=== PATIENT | female | born 1995 | race Caucasian/White ===

== ENCOUNTER 2020-03-08 18:38 | Emergency (ER) | payer OTHER, SELFPAY ==
--- NOTE | ~2020-03-08 | CT_ITS ---
EXAMINATION: CT abdomen pelvis w con DATE: 03/08/2020 22:04 INDICATION: Abdominal pain TECHNIQUE: Computed tomography (CT) of the abdomen and pelvis was performed with 100 cc Omnipaque 350 intravenous contrast. Automated exposure control and iterative reconstruction technique were employe d. Exam dose: 227.66 mGy-cm total exam DLP. COMPARISON: 04/15/2016 CT abdomen pelvis FINDINGS: The lung bases are clear of infiltrate or consolidation. Normal heart size. No pericardial or pleural effusion. Status post cholecystectomy. No bile duct dilatation. No hepatic space-occupying mass lesion is detec cedric. Splenic size is within normal range. No pancreatic mass lesion or calcification or ductal dilata tion. Normal morphology of the adrenal glands. There is a pinpoint nonobstructing lower pole left renal calculus. No other urinary tract calculus or hydroureteronephrosis. The urinary bladder is unremarkable. There is an IUD within the uterus. There is an involuting peripherally enhancing 1.8 cm right ovarian cyst. The urinary bladder is unrem arkable. Normal appendix. No bowel obstruction, bowel wall thickening, pneumatosis or intraperitoneal free air . Small fat-containing umbilical hernia. Normal caliber of the abdominal aorta. No intraperitoneal or retroperitoneal or pelvic mass lesion or adenopathy or ascites. Included skeletal structures are unremarkable. IMPRESSION: Involuting 1.8 cm right ovarian cyst IUD within uterus Normal appendix Status post cholecystectomy Pinpoint nonobstructing lower pole left renal calculus Reviewed, dictated and finalized at [facility]. Reviewed, dictated and finalized at [facility]. [employer]PRES[employer]IVE
[2020-03-08 19:01] VITALS: BP 118/73; PULSE 94; RESP 18; TEMP 37.1; O2SAT 100
[2020-03-08 19:22] LABS: Basophils Percent Auto 0.3 % (0.2-1.2); Eosinophils Absolute Auto 0.3 K/mm3 (0-0.3); Eosinophils Percent Auto 2.4 % (0-4.4); Hematocrit 41.2 % (37.0-47.0); Hemoglobin 13.8 g/dL (12.0-15.0); Immature Granulocyte Absolute 0.06 K/mm3 (0.00-0.031); Immature Granulocyte Percent A 0.5 % (0-0.5); Lymphocytes Absolute Auto 2.98 K/mm3 (0.9-3.2); Lymphocytes Percent Auto 25.6 % (18.3-44.2); Mean Corpuscular HGB Conc 33.5 g/dl (32-36); Mean Corpuscular Hemoglobin 30.1 pg (26-34); Mean Corpuscular Volume 89.8 fl (80-100); Mean Platelet Volume 10.9 fl (7.4-10.4); Monocytes Absolute Auto 0.7 K/mm3 (0.1-0.6); Monocytes Percent Auto 6.2 % (2.6-8.5); Neutrophils Absolute Auto 7.6 K/mm3 (1.3-6.7); Platelet Count Result 306 k/mm3 (150-375); Red Blood Count 4.59 M/mm3 (4.2-5.4); Red Cell Distribution Width 12.4 % (11.5-14.5); White Blood Count 11.6 K/mm3 (4.5-10.0)
[2020-03-08 19:39] LABS: Anion Gap 10 mmol/L (8-16); Blood Urea Nitrogen 15 mg/dL (7-17); Calcium 9.7 mg/dL (8.4-10.2); Carbon Dioxide 26 mmol/L (22-30); Chloride 103 mmol/L (98-107); Estimated CRCL calculation 89 ml/min; Estimated Glomerular Filt Rate > 60; Glucose 92 mg/dL (65-105); Potassium 4.1 mmol/L (3.4-5.0); Sodium 139 mmol/L (137-145)
[2020-03-08 20:11] LABS: Add Urine Microscopic? YES; Appearance Urine Clear (Clear); Bilirubin Urine Negative (Negative); Blood Urine 1+ (Negative); Color Urine Straw (Yellow); Glucose Urine UA Negative (Negative); Ketones Urine Negative (Negative); Leukocyte Esterase Ur Negative LEU/UL (Negative); Nitrate Urine Negative (Negative); Protein Urine Negative (Negative); Specific Grav Ur 1.014 (1.001-1.035); Squamous Epithelial Cell Urine Moderate /hpf (Few); Urobilinogen Urine Negative mg/dL (<2.0); WBC Urine 0-3 /hpf
--- NOTE | 2020-03-08 20:52 | ED.GENADULT ---
HPI - General Adult General Chief complaint: Urogenital-Female Stated complaint: back pain Time Seen by Provider: 03/08/20 20:45 Source: RN notes reviewed History of Present Illness HPI narrative: Patient presents to emergency department from home for dysuria. Patient states that for the past 1 week she has had dysuria and urinary frequency she was seen at [facility] 1 week ago and started on Bactrim which she states she had side effects from and today had Macrobid called in. She states that she has been having nausea vomiting for the past 1 week and today developed bilateral lower back pain as well as abdominal pain she denies any fevers or chills chest pain shortness of breath or any other symptoms Related Data Allergies Allergy/AdvReac Type Severity Reaction Status Date / Time gluten Allergy Intermediate Other Verified 03/08/20 20:51 chlorpheniramine Allergy Unknown Unknown Verified 03/08/20 20:51 dextromethorphan Allergy Unknown Hives Verified 03/08/20 20:51 phenylephrine Allergy Unknown Hives Verified 03/08/20 20:51 sulfamethoxazole AdvReac Vomiting Verified 03/08/20 20:51 [From Sulfamethoxazole-Trimethoprim] trimethoprim AdvReac Vomiting Verified 03/08/20 20:51 [From Sulfamethoxazole-Trimethoprim] Review of Systems Review of Systems: Narrative: Gen.: Denies fevers or chills ENT: Denies congestion Respiratory: Denies shortness of breath or cough CV: Denies chest pain or palpitations GI: See HPI see HPI Musculoskeletal: Denies back pain or muscle pain Neuro: Denies numbness, tingling, weakness or focal weakness Skin: Denies rash Except as documented, all other systems reviewed and negative [facility] Past Medical History Medical History (Updated 03/08/20 @ 22:39 by Nik Ames DO) Celiac disease Social History Social History (Updated 03/08/20 @ 20:54 by Nik Ames DO) Smoking status: Never smoker Gender identity (if verbalized by the patient): Female Exam Narrative: Exam Narrative: APPEARANCE: No acute distress, nontoxic, resting in bed HEENT: Normocephalic, atraumatic, OMM RESPIRATORY: No respiratory distress, clear to auscultation bilaterally with no rhonchi wheezing or rales CARDIOVASCULAR: RRR s murmur ABDOMINAL: Soft, nondistended, diffusely tender palpation no rebound or guarding, bilateral flank tenderness MUSCULOSKELETAl: Moves all extremities. No clubbing, cyanosis or edema. NEURO: Awake and alert. Following commands, speech normal, no focal deficits SKIN:: Warm, dry. Normal Color PSYCHIATRIC: Normal affect/mood Course Course Emergency Course: Patient states that they are feeling much better at this time. States abdominal pain has resolved. Repeat abdominal exam shows the patient's abdomen to be soft and nontender. Discussed with patient results of workup and diagnosis. Discussed need for follow-up with primary care physician, reasons to return to the emergency department in proper use of medication. Patient understands and agrees to current treatment plan Vital Signs Vital signs: Vital Signs Temperature 98.8 F 03/08/20 19:01 Pulse Rate 94 03/08/20 19:01 Respiratory Rate 18 03/08/20 19:01 Blood Pressure 118/73 03/08/20 19:01 Pulse Oximetry 100 03/08/20 19:01 Temperature 98.8 F 03/08/20 19:01 Pulse Rate 94 03/08/20 19:01 Respiratory Rate 18 03/08/20 19:01 Blood Pressure 118/73 03/08/20 19:01 Pulse Oximetry 100 03/08/20 19:01 Medical Decision Making MDM Narrative Medical decision making narrative: Patient's abdomen is soft without significant pain or signs of surgical abdomen on serial exams. Lab and x-ray evaluations are reviewed and patient is felt to be a reasonable candidate for outpatient management. Patient was instructed as to limitations of x-ray and laboratory evaluation and encouraged to return to ED or primary physician for repeat exam in 12 hours if continued or worsening pain Vital Signs Vital Signs: Vital Si
[2020-03-08] MEDS: ONDANSETRON INJ 4 MG/2 ML VIAL IV PUSH (21:00)
[2020-03-08] MEDS: SODIUM CHLORIDE 0.9% IV 1,000 ML 999 ML IV CONT (21:01)
--- NOTE | 2020-03-08 21:06 | PC.NURSE ---
called chem, added on Hepatic lip 2105
[2020-03-08 21:43] LABS: Alanine Aminotransferase 23 U/L (4-35); Albumin Level 4.7 g/dL (3.5-5.1); Alkaline Phosphatase 55 U/L (38-126); Aspartate Amino Transferase 32 U/L (14-36); Bilirubin,Total 0.4 mg/dL (0.2-1.3); Lipase 97 U/L (23-300)
[2020-03-08 23:06] VITALS: BP 101/63; PULSE 78; RESP 15; O2SAT 100
== END 2020-03-08 23:07 | disposition home or self-care (01) ==
PROVIDERS: Emergency Medicine; Emergency Provider Emergency Medicine
DX: R30.0 Dysuria (principal); R10.9 Unspecified abdominal pain; Z97.5 Presence of (intrauterine) contraceptive device
CPT/HCPCS: 36415; 74177; 80048; 80076; 81001; 81025; 83690; 85025; 96361; 96365; 96375; 99284; J0131; J2405; J7030; Q9967

== ENCOUNTER 2020-10-20 17:52 | Emergency (ER) | payer BC, OTHER, SELFPAY ==
[2020-10-20 17:54] VITALS: BP 121/68; PULSE 136; RESP 20; TEMP 37.5; O2SAT 100
--- NOTE | 2020-10-20 18:10 | ED.GENADULT ---
HPI - General Adult General Chief complaint: Abdominal Pain Stated complaint: right side pain/fever Time Seen by Provider: 10/20/20 17:59 Source: patient, family and RN notes reviewed Mode of arrival: ambulatory Limitations: no limitations History of Present Illness HPI narrative: Patient is a 24-year-old female who presents to emergency department for evaluation of vomiting diarrhea that began at 4 AM and has persisted throughout the day patient notes chills fever multiple episodes of vomiting and diarrhea. Patient attempted Imodium with no improvement. Patient denies similar occurrence in the past or sick contacts. Patient on arrival appears uncomfortable and notes cramping throughout the abdomen. Related Data Allergies Allergy/AdvReac Type Severity Reaction Status Date / Time gluten Allergy Intermediate Other Verified 03/08/20 20:51 chlorpheniramine Allergy Unknown Unknown Verified 03/08/20 20:51 dextromethorphan Allergy Unknown Hives Verified 03/08/20 20:51 phenylephrine Allergy Unknown Hives Verified 03/08/20 20:51 sulfamethoxazole AdvReac Vomiting Verified 03/08/20 20:51 [From Sulfamethoxazole-Trimethoprim] trimethoprim AdvReac Vomiting Verified 03/08/20 20:51 [From Sulfamethoxazole-Trimethoprim] Review of Systems Review of Systems: All systems reviewed & are unremarkable except as noted in HPI and below PMFSH Past Medical History Medical History Celiac disease Surgical History Surgical History Hx of cholecystectomy Social History Social History Smoking status: Never smoker Gender identity (if verbalized by the patient): Female Exam Narrative: Exam Narrative: GENERAL: Ill-appearing, well-nourished, uncomfortable and in no acute distress. HEAD: Normocephalic, atraumatic. EYES: PERRLA and EOMI. ENT: Nares clear, no rhinorrhea or epistaxis. Mucous membranes moist. CHEST: Clear to auscultation. No respiratory distress. No wheezes rales or rhonchi HEART: Regular rate and rhythm. No murmur heard. Normal peripheral pulses. ABDOMEN: Soft, generalized abdominal tenderness, nondistended EXTREMITIES: Normal range of motion. No edema. SKIN: Warm, dry, no rash. NEURO: No focal deficits. Alert and oriented x3. PSYCH: Normal mood and affect. Course Course Emergency Course: Patient hydrated given medications with improvement will be discharged home with outpatient follow-up Vital Signs Vital signs: Vital Signs Temperature 99.5 F 10/20/20 17:54 Pulse Rate 136 H 10/20/20 17:54 Respiratory Rate 20 10/20/20 17:54 Blood Pressure 121/68 10/20/20 17:54 Pulse Oximetry 100 10/20/20 17:54 Temperature 99.5 F 10/20/20 17:54 Pulse Rate 136 H 10/20/20 17:54 Respiratory Rate 20 10/20/20 17:54 Blood Pressure 100/58 L 10/20/20 18:21 Pulse Oximetry 100 10/20/20 17:54 Medical Decision Making MDM Narrative Medical decision making narrative: Patient presented with vomiting and diarrhea had marked improvement with medications resting comfortably in the room with normal vital signs on the surveillance monitor afebrile nontoxic-appearing tolerating p.o. intake felt appropriate for outpatient reevaluation Vital Signs Vital Signs: Vital Signs Temperature 99.5 F 10/20/20 17:54 Pulse Rate 136 H 10/20/20 17:54 Respiratory Rate 10/20/20 17:54 Blood Pressure 121/68 10/20/20 17:54 Pulse Oximetry 100 10/20/20 17:54 Temperature 99.5 F 10/20/20 17:54 Pulse Rate 136 H 10/20/20 17:54 Respiratory Rate 10/20/20 17:54 Blood Pressure 100/58 L 10/20/20 18:21 Pulse Oximetry 100 10/20/20 17:54 Lab Data Result diagrams: 10/20/20 18:10 10/20/20 18:10 Labs: Lab Results 10/20/20 10/20/20 10/20/20 Range/Units 18:10 18:10 18:20 WBC 7.3 (4.5-10.0)
[2020-10-20 18:15] LABS: Basophils Percent Auto 0.1 % (0.2-1.2); Eosinophils Absolute Auto 0.1 K/mm3 (0-0.3); Eosinophils Percent Auto 1.5 % (0-4.4); Hemoglobin 14.7 g/dL (12.0-15.0); Immature Granulocyte Absolute 0.03 K/mm3 (0.00-0.031); Immature Granulocyte Percent A 0.4 % (0-0.5); Lymphocytes Absolute Auto 1.08 K/mm3 (0.9-3.2); Lymphocytes Percent Auto 14.8 % (18.3-44.2); Mean Corpuscular HGB Conc 32.7 g/dl (32-36); Mean Corpuscular Hemoglobin 29.6 pg (26-34); Mean Corpuscular Volume 90.7 fl (80-100); Monocytes Absolute Auto 0.5 K/mm3 (0.1-0.6); Monocytes Percent Auto 6.6 % (2.6-8.5); Neutrophils Absolute Auto 5.6 K/mm3 (1.3-6.7); Neutrophils Percent Auto 76.6 % (45.5-73.1); Platelet Count Result 258 k/mm3 (150-375); Red Blood Count 4.96 M/mm3 (4.2-5.4); Red Cell Distribution Width 12.4 % (11.5-14.5); White Blood Count 7.3 K/mm3 (4.5-10.0)
[2020-10-20 18:21] VITALS: BP 100/58
[2020-10-20 18:27] LABS: Alanine Aminotransferase 14 U/L (4-35); Albumin Level 4.7 g/dL (3.5-5.1); Alkaline Phosphatase 58 U/L (38-126); Anion Gap 10 mmol/L (8-16); Aspartate Amino Transferase 27 U/L (14-36); Blood Urea Nitrogen 10 mg/dL (7-17); Carbon Dioxide 23 mmol/L (22-30); Chloride 106 mmol/L (98-107); Estimated CRCL calculation 77 ml/min; Estimated Glomerular Filt Rate > 60; Glucose 93 mg/dL (65-105); Lipase 52 U/L (23-300); Potassium 3.7 mmol/L (3.4-5.0); Sodium 139 mmol/L (137-145)
[2020-10-20 18:35] LABS: Add Urine Microscopic? YES; Appearance Urine Cloudy (Clear); Bacteria Urine Trace /hpf; Bilirubin Urine Negative (Negative); Blood Urine 2+ (Negative); Color Urine Yellow (Yellow); Glucose Urine UA Negative (Negative); Ketones Urine Negative (Negative); Leukocyte Esterase Ur 1+ LEU/UL (Negative); Mucus Urine Heavy /lpf; Nitrate Urine Negative (Negative); Protein Urine 1+ mg/dL (Negative); Specific Grav Ur 1.027 (1.001-1.035); Squamous Epithelial Cell Urine Many /hpf (Few)
[2020-10-20] MEDS: ONDANSETRON INJ 4 MG/2 ML VIAL IV PUSH (18:35)
[2020-10-20] MEDS: FAMOTIDINE 20 MG/2 ML VIAL IV PUSH (18:36)
[2020-10-20] MEDS: LACTATED RINGERS 1,000 ML 999 ML IV CONT ×2 (18:36→19:35)
[2020-10-20] MEDS: HYOSCYAMINE SULFATE 0.125 MG TABLET PO (18:48)
[2020-10-20 20:38] VITALS: BP 102/73; PULSE 78; RESP 18; O2SAT 99
== END 2020-10-20 20:40 | disposition home or self-care (01) ==
PROVIDERS: Emergency Medicine Emergency Medical Services; Emergency Provider Emergency Medicine
DX: R10.9 Unspecified abdominal pain (principal); K90.0 Celiac disease
CPT/HCPCS: 36415; 80053; 81001; 81025; 83690; 85025; 87086; 87088; 96361; 96374; 96375; 99284; A9270; J0131; J2405; J7120

== ENCOUNTER 2020-10-21 03:10 | Emergency (ER) | payer BC, OTHER, SELFPAY ==
[2020-10-21 03:24] VITALS: BP 109/76; PULSE 98; RESP 18; TEMP 36.8; O2SAT 98
--- NOTE | 2020-10-21 03:34 | ED.NAVMDI ---
HPI - Nausea/Vomiting/Diarrhea General Chief complaint: Nausea/Vomiting/Diarrhea Stated complaint: Nausea, vomiting, GARCIA Time Seen by Provider: 10/21/20 03:23 History of Present Illness HPI Narrative: Nausea vomiting and diarrhea x2 days. Associated with diffuse abdominal cramping. Seen here yesterday and an essentially negative work-up. She was feeling better after symptomatic treatment, but after returning home her symptoms came back. In additiona she also has a severe headache consistent with her usual migraine. Related Data Allergies Allergy/AdvReac Type Severity Reaction Status Date / Time gluten Allergy Intermediate Other Verified 03/08/20 20:51 chlorpheniramine Allergy Unknown Unknown Verified 03/08/20 20:51 dextromethorphan Allergy Unknown Hives Verified 03/08/20 20:51 phenylephrine Allergy Unknown Hives Verified 03/08/20 20:51 sulfamethoxazole AdvReac Vomiting Verified 03/08/20 20:51 [From Sulfamethoxazole-Trimethoprim] trimethoprim AdvReac Vomiting Verified 03/08/20 20:51 [From Sulfamethoxazole-Trimethoprim] Review of Systems Review of Systems: All systems reviewed & are unremarkable except as noted in HPI and below Constitutional: Constitutional: Denies fever(s) ENT: Reports dizziness Cardiovascular: Cardiovascular: Denies chest pain Respiratory: Respiratory: Denies dyspnea Genitourinary: Genitourinary: Denies hematuria and Denies dysuria PMFSH Past Medical History Medical History Celiac disease Surgical History Surgical History Hx of cholecystectomy Social History Social History Smoking status: Never smoker Gender identity (if verbalized by the patient): Female Exam Const: General: healthy appearing, no acute distress and alert Orientation/consciousness: patient oriented x3 HENMT: Head: normal to inspection Face and sinus: normal facial exam Neck: Neck: normal visual inspection Resp: Effort & Inspection: normal respiratory effort Auscultation: clear to auscultation bilaterally, no rales, no rhonchi and no wheezes Cardio: Jugular venous distension: no JVD Rate: regular rate Rhythm: regular rhythm Heart sounds: no murmurs GI: Inspection: non-distended GI Palp: Yes Soft to palpation, Yes Tenderness to palpation present (GI), No Guarding due to palpation present (GI) and No Rebound tenderness present Auscultation: Hyperactive bowel sounds present Skin: General skin exam: normal color Neuro: General: patient oriented x3 and moves all extremities Speech: normal speech Extrem: General: no edema Psych: Appearance: well kempt Affect: normal affect Course Vital Signs Vital signs: Vital Signs Temperature 36.8 C 10/21/20 03:24 Pulse Rate 98 10/21/20 03:24 Respiratory Rate 18 10/21/20 03:24 Blood Pressure 109/76 10/21/20 03:24 Pulse Oximetry 98 10/21/20 03:24 Temperature 36.8 C 10/21/20 03:24 Pulse Rate 71 10/21/20 05:15 Respiratory Rate 18 10/21/20 05:15 Blood Pressure 96/58 L 10/21/20 05:15 Pulse Oximetry 98 10/21/20 05:15 MDM - Nausea/Vomiting/Diarrhea MDM Narrative Medical decision making narrative: Symptoms consistent with gastroenteritis. Once again feeling better after treatment. Differential Diagnosis Differential diagnosis: Likely gastroenteritis and dehydration Medical Records Attestation: I reviewed the patient's medical records. Lab Data Result diagrams: 10/21/20 03:44 10/21/20 03:44 Labs: Lab Results 10/21/20 10/21/20 Range/Units 03:44 03:44 WBC 5.8 (4.5-10.0) K/mm3 RBC 4.09 L (4.2-5.4) M/mm3 Hgb 12.4 (12.0-15.0) g/dL Hct 36.8 L (37.0-47.0) % MCV 90.0 (80-100) fl MCH 30.3 (26-34) pg MCHC 33.7 (32-36) g/dl RDW 12.3 (11.5-14.5) % Plt Count 204 (150-375) k/mm3 MP
[2020-10-21] MEDS: METOCLOPRAMIDE HCL INJ 10 MG/2 ML VIAL IV PUSH (03:46)
[2020-10-21] MEDS: SODIUM CHLORIDE 0.9% IV 1,000 ML 999 ML IV CONT (03:46)
[2020-10-21] MEDS: DICYCLOMINE HCL INJ 20 MG/2 ML VIAL IM (03:47)
[2020-10-21 03:49] VITALS: BP 98/69; PULSE 78; RESP 18; O2SAT 98
[2020-10-21 03:57] LABS: Basophils Percent Auto 0.3 % (0.2-1.2); Eosinophils Absolute Auto 0.1 K/mm3 (0-0.3); Eosinophils Percent Auto 1.7 % (0-4.4); Hematocrit 36.8 % (37.0-47.0); Hemoglobin 12.4 g/dL (12.0-15.0); Immature Granulocyte Absolute 0.02 K/mm3 (0.00-0.031); Immature Granulocyte Percent A 0.3 % (0-0.5); Lymphocytes Absolute Auto 1.29 K/mm3 (0.9-3.2); Lymphocytes Percent Auto 22.2 % (18.3-44.2); Mean Corpuscular HGB Conc 33.7 g/dl (32-36); Mean Corpuscular Hemoglobin 30.3 pg (26-34); Mean Platelet Volume 11.7 fl (7.4-10.4); Monocytes Absolute Auto 0.6 K/mm3 (0.1-0.6); Monocytes Percent Auto 10.5 % (2.6-8.5); Neutrophils Absolute Auto 3.8 K/mm3 (1.3-6.7); Platelet Count Result 204 k/mm3 (150-375); Red Blood Count 4.09 M/mm3 (4.2-5.4); Red Cell Distribution Width 12.3 % (11.5-14.5); White Blood Count 5.8 K/mm3 (4.5-10.0)
[2020-10-21 04:07] LABS: Alanine Aminotransferase 12 U/L (4-35); Albumin Level 4.1 g/dL (3.5-5.1); Alkaline Phosphatase 43 U/L (38-126); Anion Gap 9 mmol/L (8-16); Aspartate Amino Transferase 23 U/L (14-36); Bilirubin,Total 0.8 mg/dL (0.2-1.3); Blood Urea Nitrogen 7 mg/dL (7-17); Calcium 8.7 mg/dL (8.4-10.2); Carbon Dioxide 23 mmol/L (22-30); Chloride 110 mmol/L (98-107); Estimated CRCL calculation 88 ml/min; Estimated Glomerular Filt Rate > 60; Glucose 89 mg/dL (65-105); Lipase 58 U/L (23-300); Potassium 3.6 mmol/L (3.4-5.0); Sodium 142 mmol/L (137-145)
[2020-10-21 05:15] VITALS: BP 96/58; PULSE 71; RESP 18; O2SAT 98
== END 2020-10-21 05:38 | disposition home or self-care (01) ==
PROVIDERS: Emergency Provider Emergency Medicine
DX: K52.9 Noninfective gastroenteritis and colitis, unspecified (principal); K90.0 Celiac disease; Z90.49 Acquired absence of other specified parts of digestive tract
CPT/HCPCS: 36415; 80053; 83690; 85025; 96365; 96372; 96375; 99284; J0131; J0500; J2765; J7030

== ENCOUNTER 2020-11-18 14:19 | Emergency (ER) | payer BC, SELFPAY ==
--- NOTE | ~2020-11-18 | CT_ITS ---
EXAMINATION: CT abdomen pelvis w con EXAM DATE: 11/18/2020 20:29 INDICATION: Generalized abdominal pain . Urinary tract infection. Fever. TECHNIQUE: Spiral CT of the abdomen and pelvis was performed following intravenous injection of 100 m L Omnipaque 350. Axial, coronal and sagittal images of the abdomen and pelvis were reviewed. The do se-length product (DLP) for this examination was 226.43 mGy-cm. The exposure was tailored according to patient size (auto mA exposure control), and iterative reconstruction (ASIR) was used as additiona l dose reduction technique. There is no prior study for comparison. FINDINGS: The liver, spleen, adrenal glands and pancreas are unremarkable. There are cholecystectomy clips. Portal and splenic veins are patent. Kidneys enhance symmetrically. There is no hydronephr osis. There is IUD which appears to be centrally located within the endometrium, expected position. The bladder is unremarkable. There is no retroperitoneal or pelvic lymphadenopathy. Appendix appearance is unchanged compared to prior study, no suspicion of acute appendicitis. The st omach and small bowel are unremarkable. There is expected amount of colonic stool. No free intrape ritoneal gas. The heart is normal in size. There are no pericardial or pleural effusions. The nicolle g bases are unremarkable. The bones are unremarkable. IMPRESSION: 1. No acute intra-abdominal findings. Reviewed, dictated and finalized at [facility].
[2020-11-18 14:23] VITALS: BP 112/74; PULSE 102; RESP 20; TEMP 37.6; O2SAT 99
[2020-11-18 14:55] LABS: Basophils Percent Auto 0.4 % (0.2-1.2); Eosinophils Absolute Auto 0.2 K/mm3 (0-0.3); Eosinophils Percent Auto 2.2 % (0-4.4); Hemoglobin 12.9 g/dL (12.0-15.0); Immature Granulocyte Absolute 0.02 K/mm3 (0.00-0.031); Immature Granulocyte Percent A 0.3 % (0-0.5); Lymphocytes Absolute Auto 1.54 K/mm3 (0.9-3.2); Lymphocytes Percent Auto 21.4 % (18.3-44.2); Mean Corpuscular HGB Conc 33.9 g/dl (32-36); Mean Corpuscular Hemoglobin 30.6 pg (26-34); Mean Corpuscular Volume 90.3 fl (80-100); Mean Platelet Volume 11.5 fl (7.4-10.4); Monocytes Absolute Auto 0.5 K/mm3 (0.1-0.6); Monocytes Percent Auto 6.8 % (2.6-8.5); Neutrophils Percent Auto 68.9 % (45.5-73.1); Platelet Count Result 254 k/mm3 (150-375); Red Blood Count 4.21 M/mm3 (4.2-5.4); Red Cell Distribution Width 12.5 % (11.5-14.5); White Blood Count 7.2 K/mm3 (4.5-10.0)
[2020-11-18 15:04] LABS: Alanine Aminotransferase 17 U/L (4-35); Albumin Level 4.7 g/dL (3.5-5.1); Alkaline Phosphatase 50 U/L (38-126); Anion Gap 11 mmol/L (8-16); Aspartate Amino Transferase 25 U/L (14-36); Bilirubin,Total 0.6 mg/dL (0.2-1.3); Blood Urea Nitrogen 8 mg/dL (7-17); Calcium 9.8 mg/dL (8.4-10.2); Carbon Dioxide 22 mmol/L (22-30); Chloride 104 mmol/L (98-107); Estimated CRCL calculation 88 ml/min; Estimated Glomerular Filt Rate > 60; Glucose 136 mg/dL (65-110); Potassium 3.3 mmol/L (3.4-5.0); Sodium 137 mmol/L (137-145)
[2020-11-18 18:46] VITALS: BP 143/87; PULSE 105; RESP 23; O2SAT 99
[2020-11-18 18:46] LABS: Add Urine Microscopic? YES; Amorphous Sediment Urine Few; Appearance Urine Clear (Clear); Bilirubin Urine Negative (Negative); Blood Urine Negative (Negative); Color Urine Amber (Yellow); Glucose Urine UA Negative (Negative); Ketones Urine Negative (Negative); Leukocyte Esterase Ur Trace LEU/UL (Negative); Nitrate Urine Positive (Negative); Protein Urine Negative (Negative); RBC Urine 0-2 /hpf (0-2); Specific Grav Ur 1.005 (1.001-1.035); Squamous Epithelial Cell Urine Many /hpf (Few); Urobilinogen Urine Negative mg/dL (<2.0); WBC Urine 0-3 /hpf
--- NOTE | 2020-11-18 19:02 | ED.FEMALEGU ---
HPI - Female Genitourinary General Chief complaint: Fever Stated complaint: back pain, uti, tachycardia, fever Time Seen by Provider: 11/18/20 18:07 Source: patient Mode of arrival: ambulatory Limitations: no limitations History of Present Illness HPI Narrative: Patient is a 24 year old female who presents reporting fever and UTI. Patient reports being seen and treated in the ED in [place] and diagnosed with UTI 3 days ago. Patient reports started on Omnicef. Patient reports fever starting yesterday. She denies cough, chest pain, sore throat or other complaints. She reports taking abx as directed. Patient appears anxious at this time. She denies significant medical history, she denies all other complaints at this time. elicited complaint: UTI Related Data Home Medications Medication Instructions Recorded Confirmed cefdinir mg 11/18/20 Allergies Allergy/AdvReac Type Severity Reaction Status Date / Time gluten Allergy Intermediate Other Verified 03/08/20 20:51 cephalexin [From Keflex] Allergy Vomiting Verified 11/18/20 18:53 chlorpheniramine Allergy Hives Verified 11/18/20 18:53 [From Donatussin] dextromethorphan Allergy Hives Verified 11/18/20 18:53 [From Donatussin] phenylephrine Allergy Hives Verified 11/18/20 18:53 [From Donatussin] prochlorperazine Allergy Palpitation Verified 11/18/20 18:53 [From Compazine] s Review of Systems Review of Systems: Narrative: CONSTITUTIONAL: Denies fever, chills, or sweats. EYES: Denies visual changes, redness, or discharge. ENT: Denies rhinorrhea, congestion, sore throat, or otalgia. CARDIOVASCULAR: Denies chest pain, palpitations, or edema. RESPIRATORY: Denies cough or dyspnea. GASTROINTESTINAL: Denies abdominal pain, nausea, vomiting, or diarrhea. GENITOURINARY: Reports UTI, currently being treated with cefdinir SKIN: Denies rash or itching. MUSCULOSKELETAL: Denies back pain, joint pain, or myalgia. NEUROLOGIC: Denies headache, numbness, dizziness, or weakness. PSYCHIATRIC: Denies anxiety or depression. [facility] Past Medical History Medical History Celiac disease Surgical History Surgical History Hx of cholecystectomy Social History Social History (Updated 11/18/20 @ 19:06 by BERTRAM Andino) Smoking status: Never smoker Alcohol intake: never Substance use: never Living arrangements: with family Gender identity (if verbalized by the patient): Female Comments At the time of signature, I have reviewed and agree with nursing past medical, surgical, social, and family history unless otherwise noted. Please see nursing chart for further information. There is no relevant family history pertinent to the presenting complaint. Exam Narrative: Exam Narrative: GENERAL: Well-appearing, well-nourished, and in no acute distress. HEAD: Normocephalic, atraumatic. EYES: EOMI. No redness or drainage. Conjunctiva are normal. ENT: Mucous membranes pink and moist. CHEST: No respiratory distress. Clear to auscultation. HEART: Tachycardic, normal rhythm. No murmur appreciated. Normal peripheral pulses. GI: Soft, nontender without rebound, or guarding. No distention. EXTREMITIES: Normal range of motion. SKIN: Warm, dry, no rash. NEURO: No focal deficits. Alert and oriented x3. Gait steady. PSYCH: Normal affect. No signs of depression or anxiety. Course Vital Signs Vital signs: Vital Signs Temperature 37.6 C H 11/18/20 14:23 Pulse Rate 102 H 11/18/20 14:23 Respiratory Rate 20 11/18/20 14:23 Blood Pressure 112/74 11/18/20 14:23 Pulse Oximetry 99 11/18/20 14:23 Temperature 37.6 C H 11/18/20 14:23 Pulse Rate 100 11/18/20 20:35 Respiratory Rate 17 11/18/20 20:35 Blood Pressure 134/77 11/18/20 20:35 Pulse Oximetry 100 11/18/20 20:33 Reviewed-patient is informed that they may have pre-hypert
[2020-11-18] MEDS: KETOROLAC 30 MG/ML VIAL (*BKC) IV PUSH (19:29)
[2020-11-18] MEDS: SODIUM CHLORIDE 0.9% IV 1,000 ML 999 ML IV CONT (19:29)
[2020-11-18] MEDS: LORazepam INJ (*CRX) 2 MG/ML VIAL 0.5 MG IV PUSH (19:29)
[2020-11-18 20:33] VITALS: BP 134/77; PULSE 100; RESP 17; O2SAT 100
[2020-11-18 20:35] VITALS: BP 134/77; PULSE 100; RESP 17
[2020-11-18 21:47] VITALS: BP 126/71; PULSE 89; RESP 18; O2SAT 99
[2020-11-18 22:26] VITALS: BP 121/77; PULSE 90; RESP 18; O2SAT 98
--- NOTE | 2020-11-29 15:24 | PC.NURSE ---
LATE ENTRY This note is being entered to document information to the patient's record. The following information was omitted on [11/18/20], by [Mandi Jeter RN]. Rocephin IVPB stop time 2225, 100ml infused.
== END 2020-11-18 22:28 | disposition home or self-care (01) ==
PROVIDERS: Emergency Medicine; Emergency Provider Nurse Practitioner; PCP Family Medicine
DX: N30.00 Acute cystitis without hematuria (principal); K90.0 Celiac disease; R03.0 Elevated blood-pressure reading, without diagnosis of hypertension
CPT/HCPCS: 36415; 74177; 80053; 81001; 81025; 85025; 96361; 96365; 96375; 99284; J0696; J1885; J2060; J7030; Q9967

== ENCOUNTER 2020-11-30 17:22 | Emergency (ER) | payer BC, SELFPAY ==
[2020-11-30 17:29] VITALS: BP 112/73; PULSE 89; RESP 18; TEMP 36.6; O2SAT 100
[2020-11-30 18:07] VITALS: BP 156/78; PULSE 92; RESP 18; TEMP 36.3; O2SAT 99
--- NOTE | 2020-11-30 18:08 | ED.MALEGU ---
HPI - Male Genitourinary General Chief complaint: Urogenital-Female Stated complaint: UTI Source: patient and RN notes reviewed Mode of arrival: ambulatory History of Present Illness HPI Narrative: This is a 25-year-old female who presented to urgent care with complaints of burning while urinating and tingling sensation in her vaginal area. Patient seems to believe that she has a urinary tract infection she has been treated 3 different times with antibiotics and her urine cultures are negative. Her primary care physician took her off her Last but of antibiotics due to no growth. Patient is sexually active she will be tested for STD. She does also complain of pelvic pain. The patient denies SOB, CP, palpitation, extremity numbness, lightheadedness, dizziness, constipation, diarrhea, chills, or fever. We will test her for STD. MD Complaint: dysuria Related Data Home Medications Medication Instructions Recorded Confirmed acetaminophen 325 mg capsule 325 mg PO Q6H 11/22/20 Allergies Allergy/AdvReac Type Severity Reaction Status Date / Time gluten Allergy Intermediate Other Verified 11/22/20 14:49 cephalexin [From Keflex] Allergy Vomiting Verified 11/22/20 14:49 chlorpheniramine Allergy Hives Verified 11/22/20 14:49 [From Donatussin] ciprofloxacin [From Cipro] Allergy Other Verified 11/30/20 17:50 dextromethorphan Allergy Hives Verified 11/22/20 14:49 [From Donatussin] phenylephrine Allergy Hives Verified 11/22/20 14:49 [From Donatussin] prochlorperazine Allergy Palpitation Verified 11/22/20 14:49 [From Compazine] s Review of Systems Review of Systems: A 14 organ system Review of Systems was performed and pertinent positives included in the HPI, otherwise remaining ROS is negative. [facility] Past Medical History Medical History (Updated 11/30/20 @ 18:07 by AL Hansen) BMI 22.0-22.9, adult Celiac disease Surgical History Surgical History Hx of cholecystectomy Family History Family History Father No problems noted. 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 HEAD: normocephalic, atraumatic. EYES: PERRL. Sclera clear/white. Vision is grossly intact. EARS: External ears normal, auditory canals clear and without drainage, TMs normal without perforation. Hearing grossly intact. NOSE: External nose normal with no obvious nasal discharge, nares without redness, no rhinorrhea. THROAT: Mucous membranes moist, posterior pharynx clear. NECK: Neck supple, non-tender without lymphadenopathy, masses or thyromegaly. CARDIOVASCULAR: Regular rate and rhythm without murmurs, gallops, or rubs. RESPIRATORY: Clear to auscultation. Breath sounds equal bilaterally. No wheezes, rales, or rhonchi. GASTROINTESTINAL: Abdomen soft, non-tender, nondistended. Bowel sounds are active. No hepato-splenomegaly, or palpable masses. No guarding. SKIN: warm, intact with no suspicious lesions or rash, good texture and turgor. NEURO: awake, alert, and oriented to person, place and time. There were no obvious focal neurologic abnormalities. Steady gait EXTREMITIES: Normal range of motion. No edema. No calf tenderness. Negative Homans sign bilaterally. BACK: Nontender without deformity or crepitance. No flank tenderness. Course Course Emergency Course: Patient will be tested for STDs and treated for
== END 2020-11-30 18:15 | disposition home or self-care (01) ==
PROVIDERS: Emergency Provider Nurse Practitioner; PCP Family Medicine
DX: B37.3 Candidiasis of vulva and vagina (principal); Z20.2 Contact with and (suspected) exposure to infections with a predominantly sexual mode of transmission; K90.0 Celiac disease
CPT/HCPCS: 81003; 87086; 87491; 87591; 87661; 99214; G0463

== ENCOUNTER 2020-12-21 16:59 | Emergency (ER) | payer BC, SELFPAY ==
[2020-12-21 17:13] VITALS: BP 108/64; PULSE 83; RESP 16; TEMP 36.4; O2SAT 100
--- NOTE | 2020-12-21 17:33 | ED.GENADULT ---
HPI - General Adult General Chief complaint: Urogenital-Female Stated complaint: back pain Time Seen by Provider: 12/21/20 17:33 Source: patient and RN notes reviewed Mode of arrival: ambulatory Limitations: no limitations History of Present Illness HPI narrative: 25-year-old female presents with concern for dysuria and urine frequency, lower back pain, chills. Reports symptoms started 1 day ago. Reports history of UTIs, recent hospitalization for pyelonephritis. Reports she was put on an antibiotic in the ER which she had to stop taking due to adverse reactions. She reports nausea, denies vomiting or diarrhea. Denies fever, body aches. Denies any intervention. MD complaint: UTI Related Data Allergies Allergy/AdvReac Type Severity Reaction Status Date / Time gluten Allergy Intermediate Other Verified 12/21/20 17:23 cephalexin [From Keflex] Allergy Vomiting Verified 12/21/20 17:23 chlorpheniramine Allergy Hives Verified 12/21/20 17:23 [From Donatussin] ciprofloxacin [From Cipro] Allergy Other Verified 12/21/20 17:23 dextromethorphan Allergy Hives Verified 12/21/20 17:23 [From Donatussin] phenylephrine Allergy Hives Verified 12/21/20 17:23 [From Donatussin] prochlorperazine Allergy Palpitation Verified 12/21/20 17:23 [From Compazine] s Review of Systems Review of Systems: CONSTITUTIONAL: Denies malaise, chills, sweats, or fever. CARDIOVASCULAR: Denies chest pain, palpitations, or edema. RESPIRATORY: Denies cough or dyspnea. GASTROINTESTINAL: Denies abdominal pain, vomiting, diarrhea. Reports nausea GENITOURINARY: Reports dysuria, frequency, bilateral flank pain. Denies urgency or hematuria. SKIN: Denies rash or itching. MUSCULOSKELETAL: Denies myalgia. NEUROLOGIC: Reports headache. All systems reviewed & are unremarkable except as noted in HPI and below PMFSH Past Medical History Medical History BMI 22.0-22.9, adult Celiac disease Surgical History Surgical History Hx of cholecystectomy Family History Family History Father No problems noted. 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 There is no relevant family history pertinent to the presenting complaint Exam Narrative: GENERAL: Well-appearing, well-nourished, and in no acute distress. HEAD: Normocephalic. EYES: PERRLA, conjunctivae clear. NECK: Supple. No lymphadenopathy CHEST: Clear to auscultation. No respiratory distress. HEART: Regular rate and rhythm. ABDOMEN: Soft, nontender upon palpation, nondistended, normal active bowel sounds, no palpable or pulsatile masses, no guarding. Suprapubic tenderness, mild bilateral CVA tenderness SKIN: Warm, dry, no rash. NEURO: Alert and oriented x3. PSYCH: Normal mood and affect Course Course Emergency Course: Patient is aware of diagnosis, understands and agrees to treatment plan. Anticipatory guidance given. Patient agrees to follow-up as directed and is aware of reasons to seek care at the emergency department. Portions of this record may have been created with voice recognition software Vital Signs Vital signs: Vital Signs Temperature 97.5 F L 12/21/20 17:13 Pulse Rate 83 12/21/20 17:13 Respiratory Rate 16 12/21/20 17:13 Blood Pressure 108/64 12/21/20 17:13 Pulse Oximetry 100
== END 2020-12-21 18:00 | disposition home or self-care (01) ==
PROVIDERS: Emergency Provider Nurse Practitioner
DX: M54.5 Low back pain (principal); R30.0 Dysuria; R35.0 Frequency of micturition; K90.0 Celiac disease
CPT/HCPCS: 81003; 87086; 99213; G0463

== ENCOUNTER 2021-09-27 16:47 | Emergency (ER) | payer OTHER, SELFPAY ==
[2021-09-27 16:58] VITALS: BP 124/73; PULSE 91; RESP 16; TEMP 36.3; O2SAT 100
--- NOTE | 2021-09-27 16:58 | ED.URI ---
HPI - URI/Sore Throat General Chief Complaint: Upper Respiratory Infection Stated Complaint: SORE THROAT Time Seen by Provider: 09/27/21 16:58 Source: patient Mode of arrival: ambulatory Limitations: no limitations History of Present Illness HPI Narrative: 25 year old female who presents to [facility] care with complaints of sore throat since yesterday of which she rates her pain 10/10, states feels like shards of glass in throat, has been taking Tylenol and Ibuprofen for her pain. Patient report temperature up to 100F as highest. Patient states that she has had strep as a child but never as adult. Patient denies any difficulty with her breathing, no ear pain, cough or any complaints of nausea voiced. MD elicited complaint: fever and sore throat Onset (ago): day(s) (1) Pain scale (0-10): 10 Treatments prior to arrival: acetaminophen and ibuprofen Related Data Allergies Allergy/AdvReac Type Severity Reaction Status Date / Time gluten Allergy Intermediate Other Verified 02/21/21 12:33 cephalexin [From Keflex] Allergy Vomiting Verified 02/21/21 12:33 chlorpheniramine Allergy Hives Verified 02/21/21 12:33 [From Donatussin] ciprofloxacin [From Cipro] Allergy Other Verified 02/21/21 12:33 dextromethorphan Allergy Hives Verified 02/21/21 12:33 [From Donatussin] phenylephrine Allergy Hives Verified 02/21/21 12:33 [From Donatussin] prochlorperazine Allergy Palpitation Verified 02/21/21 12:33 [From Compazine] s Review of Systems Review of Systems: CONSTITUTIONAL: Positive for fever, chills, or sweats. EYES: Denies visual changes, redness, or discharge. ENT: Denies rhinorrhea, congestion,positive for sore throat, no otalgia. CARDIOVASCULAR: Denies chest pain, palpitations, or edema. RESPIRATORY: Denies cough or dyspnea. GASTROINTESTINAL: Denies abdominal pain, nausea, vomiting, or diarrhea. GENITOURINARY: Denies dysuria or hematuria. SKIN: Denies rash or itching. MUSCULOSKELETAL: Denies back pain, joint pain, or myalgia. NEUROLOGIC: Denies headache, numbness, or weakness. PSYCHIATRIC: Positive for history of anxiety or depression. [facility] Past Medical History Medical History BMI 22.0-22.9, adult BMI 24.0-24.9, adult Celiac disease Surgical History Surgical History Hx of cholecystectomy Family History Family History Father No problems noted. 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 There is no relevant family history pertinent to the presenting complaint Exam Narrative: GENERAL: Well-appearing, well-nourished, and in mild acute distress. HEAD: Normocephalic, atraumatic. EYES: PERRLA and EOMI. ENT: Nares clear, no rhinorrhea or epistaxis. Mucous membranes moist.TM's normal with good light reflex, throat red with tonsils huge red and swollen and painful NECK: Supple.lymphadenopathy CHEST: Clear to auscultation. No respiratory distress.SAO2 100% on room air HEART: Regular rate and rhythm. No murmur heard. Normal peripheral pulses. ABDOMEN: Soft, nontender, nondistended, normal active bowel sounds. EXTREMITIES: Normal range of motion. No edema. SKIN: Warm, dry, no rash. NEURO: No focal deficits. Alert and oriented x3. Course Course Level of Care: Express Care Visit MDM - URI/Sore Throat Differential Diagnosis Differential diagnos
== END 2021-09-27 17:16 | disposition home or self-care (01) ==
PROVIDERS: Emergency Provider Registered Nurse; PCP Family Medicine
DX: J02.0 Streptococcal pharyngitis (principal); K90.0 Celiac disease
CPT/HCPCS: 87880; 99213; G0463

== ENCOUNTER 2021-12-09 10:04 | Emergency (ER) | payer OTHER, SELFPAY ==
[2021-12-09] VITALS (9 sets, daily range): BP systolic 110–122; BP diastolic 69–82; PULSE 100–103; RESP 16–18; TEMP 36.9; O2SAT 99–100
--- NOTE | ~2021-12-09 | CT_ITS ---
EXAMINATION: CT abdomen pelvis w con INDICATION: Left lower quadrant pain TECHNIQUE: Computed tomographic images of the abdomen and pelvis were obtained after the administrati on of 100 cc of Omnipaque 350 intravenous contrast. The dose-length product (DLP) was 305.55 mGy-cm. Automated exposure control and iterative reconstruction technique were employed. COMPARISON: 11/18/2020 FINDINGS: The lung bases are clear. The heart size is normal. There is a small sliding hiatal hernia. The gallbladder is surgically absent. The liver, spleen, pancreas, and adrenal glands are normal. Th e kidneys are unremarkable. No pathologically enlarged abdominal or pelvic lymph nodes are identified . There is no free intraperitoneal gas or evidence of bowel obstruction. There is mild distention of the urinary bladder. A moderate volume of stool is present in the distal colon. An IUD is present in the uterus in expected position. The appendix is normal. IMPRESSION: 1. Moderate volume of stool in the distal colon. Reviewed, dictated and finalized at location A.
--- NOTE | 2021-12-09 10:15 | ED.ABDPAIN ---
HPI - Abdominal Pain General Chief Complaint: Abdominal Pain <DONNELL Lucero Last Filed: 12/09/21 18:00> Stated Complaint: abd pain <Lucrecia Manley PA-C - Last Filed: 12/09/21 18:00> Time Seen by Provider: 12/09/21 10:08 <DONNELL Lucero Last Filed: 12/09/21 18:00> History of Present Illness HPI narrative: 26-year-old female here for evaluation of left lower quadrant abdominal pain/left flank pain for the past several hours. Patient states the pain began as a dull ache, and is sharp and stabbing in nature. He is constantly reports lower quadrant. She denies history of previous similar sensation. She denies any nausea or vomiting, fevers or chills, changes to her bowel movements. She does note some dysuria this morning and does have a history of frequent UTIs, but she states that she has never had a pain like this before with UTIs. No chest pain or shortness of breath. She has an IUD in place, last menstrual cycle was 3 weeks ago, notes irregular menstrual cycles due to placement of this. <DONNELL Lucero Last Filed: 12/09/21 18:00> Related Data Allergies/Adverse Reactions: Allergies Allergy/AdvReac Type Severity Reaction Status Date / Time gluten Allergy Intermediate Other Verified 02/21/21 12:33 chlorpheniramine Allergy Hives Verified 02/21/21 12:33 [From Donatussin] ciprofloxacin [From Cipro] Allergy Other Verified 02/21/21 12:33 dextromethorphan Allergy Hives Verified 02/21/21 12:33 [From Donatussin] phenylephrine Allergy Hives Verified 02/21/21 12:33 [From Donatussin] prochlorperazine Allergy Palpitation Verified 02/21/21 12:33 [From Compazine] s cephalexin [From Keflex] AdvReac Vomiting Verified 12/09/21 10:57 <DONNELL Lucero Last Filed: 12/09/21 18:00> Review of Systems Review of Systems: Gen: Denies fevers or chills Eyes: Denies eye pain or visual change ENT: Denies congestion Respiratory: Denies shortness of breath or cough CV: Denies chest pain or palpitations GI: Reports left lower quadrant abdominal pain. Denies nausea, emesis or diarrhea : denies burning, urgency, frequency or hematuria Musculoskeletal: Denies back pain or muscle pain Neuro: Denies numbness, tingling, weakness or focal weakness Skin: Denies rash Except as documented, all other systems reviewed and negative <Lucrecia Manley PA-C - Last Filed: 12/09/21 18:00> [facility] Past Medical History Medical History: Medical History BMI 22.0-22.9, adult BMI 24.0-24.9, adult Celiac disease <Lucrecia Manley PA-C - Last Filed: 12/09/21 18:00> Surgical History Surgical History: Surgical History Hx of cholecystectomy <Lucrecia Manley PA-C - Last Filed: 12/09/21 18:00> Family History Family History: Family History Father No problems noted. 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 EYES: PERRLA/EOMI, conjunctivae clear NOSE: No nasal drainage EARS: External ear normal in appearance THROAT: Oropharynx is clear. Mucous membranes are moist. NECK: Supple. No adenopathy, no masses. RE
[2021-12-09 10:33] LABS: Basophils Percent Auto 0.3 % (0.2-1.2); Eosinophils Absolute Auto 0.2 K/mm3 (0-0.3); Eosinophils Percent Auto 2.2 % (0-4.4); Hematocrit 39.6 % (37.0-47.0); Immature Granulocyte Absolute 0.02 K/mm3 (0.00-0.031); Immature Granulocyte Percent A 0.3 % (0-0.5); Lymphocytes Percent Auto 24.9 % (18.3-44.2); Mean Corpuscular HGB Conc 32.8 g/dl (32-36); Mean Corpuscular Hemoglobin 29.9 pg (26-34); Mean Platelet Volume 10.9 fl (7.4-10.4); Monocytes Absolute Auto 0.6 K/mm3 (0.1-0.6); Monocytes Percent Auto 8.2 % (2.6-8.5); Neutrophils Absolute Auto 4.6 K/mm3 (1.3-6.7); Neutrophils Percent Auto 64.1 % (45.5-73.1); Platelet Count Result 251 k/mm3 (150-375); Red Blood Count 4.35 M/mm3 (4.2-5.4); Red Cell Distribution Width 12.6 % (11.5-14.5); White Blood Count 7.2 K/mm3 (4.5-10.0)
[2021-12-09 10:42] LABS: Appearance Urine Clear (Clear); Bilirubin Urine Negative (Negative); Blood Urine Trace-lysed (Negative); Color Urine Yellow (Yellow); Glucose Urine UA Negative (Negative); Ketones Urine Negative (Negative); Leukocyte Esterase Ur 1+ LEU/UL (Negative); Nitrate Urine Negative (Negative); Protein Urine Negative (Negative); Urobilinogen Urine 0.2 mg/dL (<2.0)
[2021-12-09 10:46] LABS: Mucus Urine Rare /lpf; RBC Urine 0-2 /hpf (0-2); Squamous Epithelial Cell Urine Many /hpf (Few); Transitional Epi Cells Urine Rare /hpf (None Seen)
[2021-12-09 10:52] LABS: Add Urine Microscopic? YES
[2021-12-09 10:58] LABS: Alanine Aminotransferase 18 U/L (6-35); Albumin Level 4.5 g/dL (3.5-5.1); Alkaline Phosphatase 51 U/L (38-126); Anion Gap 10 mmol/L (8-16); Aspartate Amino Transferase 24 U/L (14-36); Bilirubin,Total 0.7 mg/dL (0.2-1.3); Blood Urea Nitrogen 9 mg/dL (7-17); Calcium 9.4 mg/dL (8.4-10.2); Carbon Dioxide 26 mmol/L (22-30); Chloride 104 mmol/L (98-107); Estimated CRCL calculation 89 ml/min; Estimated Glomerular Filt Rate > 60; Glucose 84 mg/dL (65-110); Lipase 57 U/L (23-300); Potassium 3.6 mmol/L (3.4-5.0); Sodium 140 mmol/L (137-145)
== END 2021-12-09 12:37 | disposition home or self-care (01) ==
PROVIDERS: Physician Assistant; Emergency Provider Preventive Medicine Aerospace Medicine; PCP Family Medicine
DX: K59.00 Constipation, unspecified (principal); K90.0 Celiac disease
CPT/HCPCS: 36415; 74177; 80053; 81001; 81025; 83690; 85025; 99284; Q9967

== ENCOUNTER 2022-01-09 11:48 | Emergency (ER) | payer OTHER, SELFPAY ==
[2022-01-09 11:58] VITALS: BP 131/78; PULSE 87; RESP 18; TEMP 37.5; O2SAT 100
--- NOTE | 2022-01-09 12:06 | ED.URI ---
HPI - URI/Sore Throat General Chief Complaint: Upper Respiratory Infection Stated Complaint: sorethroat Source: patient Mode of arrival: ambulatory Limitations: no limitations History of Present Illness HPI Narrative: This is a 26 year old female comes in complaining of not feeling well with a sore throat for the past two days. Although last saturday she started not to feel well. Patient tells me she felt like she had a fever but did not check her tempature. She states she had strep throat in september and her throat is starting to feel like that. Patient has several allergies discussed with patient if she is able to take antihisitime and she states she has taken before and has not had any problems. MD elicited complaint: sore throat Related Data Allergies Allergy/AdvReac Type Severity Reaction Status Date / Time gluten Allergy Intermediate Other Verified 01/09/22 12:04 chlorpheniramine Allergy Hives Verified 01/09/22 12:04 [From Donatussin] ciprofloxacin [From Cipro] Allergy Other Verified 01/09/22 12:04 dextromethorphan Allergy Hives Verified 01/09/22 12:04 [From Donatussin] phenylephrine Allergy Hives Verified 01/09/22 12:04 [From Donatussin] prochlorperazine Allergy Palpitation Verified 01/09/22 12:04 [From Compazine] s cephalexin [From Keflex] AdvReac Vomiting Verified 01/09/22 12:04 Review of Systems Review of Systems: sore throat, headache and nasal drainage. All systems reviewed & are unremarkable except as noted in HPI and below PMFSH Past Medical History Medical History BMI 22.0-22.9, adult BMI 24.0-24.9, adult Celiac disease Surgical History Surgical History Hx of cholecystectomy Family History Family History Father No problems noted. 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 HEAD:Normocephalic, atraumatic. EYES: PERRLA and EOMI. ENT: Nares clear, no rhinorrhea or epistaxis. Mucous membranes moist. Pharygeal slight redness noted drainage noted in the back of the throat. Fluid noted in the back of ear clear NECK: Supple. CHEST: Clear to auscultation. No respiratory distress. HEART: Regular rate and rhythm. Normal peripheral pulses. ABDOMEN: Soft, nontender, nondistended, normal active bowel sounds. EXTREMITIES: Normal range of motion. No edema. SKIN: Warm, dry, no rash. NEURO: No focal deficits. Alert and oriented x3. Course Course Emergency Course: strep negative Level of Care: Express Care Visit Vital Signs Vital signs: Vital Signs Temperature 99.5 F 01/09/22 11:58 Pulse Rate 87 01/09/22 11:58 Respiratory Rate 18 01/09/22 11:58 Blood Pressure 131/78 01/09/22 11:58 Pulse Oximetry 100 01/09/22 11:58 Oxygen Delivery Room Air 01/09/22 11:58 Temperature 99.5 F 01/09/22 11:58 Pulse Rate 87 01/09/22 11:58 Respiratory Rate 18 01/09/22 11:58 Blood Pressure 131/78 01/09/22 11:58 Pulse Oximetry 100 01/09/22 11:58 Oxygen Delivery Room Air 01/09/22 11:58 MDM - URI/Sore Throat Differential Diagnosis Differential diagnosis: Likely upper respiratory infection, croup, otitis media, sinusitis, viral infection, bronchitis, influenza and pharyngitis Lab Data Labs: Lab Results 01/09/22 Range/Units 12:02 POC SARS CoV-2 Ag Negative (Negative) In
== END 2022-01-09 12:50 | disposition home or self-care (01) ==
PROVIDERS: Emergency Provider Nurse Practitioner Family; PCP Family Medicine
DX: J02.9 Acute pharyngitis, unspecified (principal); B34.9 Viral infection, unspecified; Z20.822 Contact with and (suspected) exposure to COVID-19; K90.0 Celiac disease
CPT/HCPCS: 87081; 87426; 87804; 87880; 99213; C9803; G0463

== ENCOUNTER 2022-01-11 17:58 | Emergency (ER) | payer OTHER, SELFPAY ==
[2022-01-11 18:05] VITALS: BP 118/79; PULSE 88; RESP 20; TEMP 37; O2SAT 99
--- NOTE | 2022-01-11 18:08 | ED.URI ---
HPI - URI/Sore Throat General Chief Complaint: Upper Respiratory Infection Stated Complaint: Sore Throat,Cough,Congestion Time Seen by Provider: 01/11/22 18:12 Source: patient and RN notes reviewed Mode of arrival: ambulatory Limitations: no limitations History of Present Illness HPI Narrative: 26-year-old female presents for concern for ongoing sore throat, cough, chest congestion. She was seen on Saturday for the symptoms and was prescribed Zyrtec after negative flu, COVID, strep test. Her strep culture was also negative. She reports she has been taking Mucinex, Zyrtec, Tylenol and ibuprofen. She denies known sick contacts. She denies shortness of breath. Denies nausea, vomiting, diarrhea. She reports she has had a fever MD elicited complaint: cough and sore throat Related Data Allergies Allergy/AdvReac Type Severity Reaction Status Date / Time gluten Allergy Intermediate Other Verified 01/11/22 18:01 chlorpheniramine Allergy Hives Verified 01/11/22 18:01 [From Donatussin] ciprofloxacin [From Cipro] Allergy Other Verified 01/11/22 18:01 dextromethorphan Allergy Hives Verified 01/11/22 18:01 [From Donatussin] phenylephrine Allergy Hives Verified 01/11/22 18:01 [From Donatussin] prochlorperazine Allergy Palpitation Verified 01/11/22 18:01 [From Compazine] s cephalexin [From Keflex] AdvReac Vomiting Verified 01/11/22 18:01 Review of Systems Review of Systems: CONSTITUTIONAL: Reports malaise, fever. EYES: Denies visual changes, redness, or discharge. ENT: Reports rhinorrhea, congestion, and sore throat. CARDIOVASCULAR: Denies chest pain, palpitations, or edema. RESPIRATORY: Reports persistent cough and chest congestion Denies dyspnea. GASTROINTESTINAL: Denies abdominal pain, nausea, vomiting, diarrhea SKIN: Denies rash or itching. MUSCULOSKELETAL: Denies myalgia. NEUROLOGIC: Reports headache. All systems reviewed & are unremarkable except as noted in HPI and below PMFSH Past Medical History Medical History BMI 22.0-22.9, adult BMI 24.0-24.9, adult Celiac disease Surgical History Surgical History Hx of cholecystectomy Family History Family History Father No problems noted. 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 There is no relevant family history pertinent to the presenting complaint Exam Narrative: GENERAL: Well-appearing, well-nourished, and in no acute distress. HEAD: Normocephalic EYES: PERRLA, conjunctivae clear ENT: Nares clear, turbinates edematous and erythematous, clear discharge. Mucous membranes moist. TM pearly abraham with dull light reflex bilaterally; no tragal tenderness. Oropharynx not erythematous without lesions. Tonsils not enlarged and without exudate, no drooling, no hoarseness, no trismus, uvula midline. NECK: Supple. No lymphadenopathy CHEST: Clear to auscultation, breath sounds equal. No wheezing, rhonchi, rales, or stridor. No respiratory distress, speaks in full sentences. HEART: Regular rate and rhythm. No murmur heard. SKIN: Warm, dry, no rash. NEURO: Alert and oriented x3. PSYCH: Normal mood and affect Course Course Emergency Course: Patient is aware of diagnosis, understands and agrees to treatment plan. Anticipatory guidance given. Patient agrees to follow-up as directe
== END 2022-01-11 18:28 | disposition home or self-care (01) ==
PROVIDERS: Emergency Provider Nurse Practitioner; PCP Family Medicine
DX: J32.9 Chronic sinusitis, unspecified (principal); J40 Bronchitis, not specified as acute or chronic; Z20.822 Contact with and (suspected) exposure to COVID-19
CPT/HCPCS: 87420; 87426; 87804; 99213; C9803; G0463

== ENCOUNTER 2022-05-03 16:36 | Emergency (ER) | payer OTHER, SELFPAY ==
[2022-05-03 16:41] VITALS: BP 150/89; PULSE 103; RESP 16; TEMP 36.6; O2SAT 100
[2022-05-03 16:46] VITALS: BP 150/89; PULSE 103; RESP 103; TEMP 36.6; O2SAT 100
--- NOTE | 2022-05-03 17:08 | ED.URI ---
HPI - URI/Sore Throat General Chief Complaint: Upper Respiratory Infection Stated Complaint: Neck and lower Facial Irritation Time Seen by Provider: 05/03/22 17:08 Source: patient, RN notes reviewed and old records reviewed Mode of arrival: ambulatory Limitations: no limitations History of Present Illness HPI Narrative: 26-year-old female who presents to [facility] care with complaints of sore throat, runny nose and some cough since the 29 of April. Patient states a tightness feeling in the throat radiating to her sinus area and she states some tingling in her jaw and face. Patient has symmetrical facial appearance with no respiratory difficulty noted. Patient has no tachypnea or any labored breathing with SAO2 100% on room air. She has been taking some Ibuprofen for her symptoms. MD elicited complaint: sore throat, rhinorrhea, nasal congestion and other (throat feels tight) Pertinent past history: sinusitis and other (strep throat and sinusitis) Onset (ago): day(s) (4) Able to tolerate fluids by mouth: Yes Treatments prior to arrival: ibuprofen Related Data Allergies Allergy/AdvReac Type Severity Reaction Status Date / Time gluten Allergy Intermediate Other Verified 05/09/22 18:22 chlorpheniramine Allergy Hives Verified 05/09/22 18:22 [From Donatussin] ciprofloxacin [From Cipro] Allergy Other Verified 05/09/22 18:22 dextromethorphan Allergy Hives Verified 05/09/22 18:22 [From Donatussin] phenylephrine Allergy Hives Verified 05/09/22 18:22 [From Donatussin] prochlorperazine Allergy Palpitation Verified 05/09/22 18:22 [From Compazine] s cephalexin [From Keflex] AdvReac Vomiting Verified 05/09/22 18:22 Review of Systems Review of Systems: CONSTITUTIONAL: Denies malaise, chills, sweats, or fever.is anxious EYES: Denies visual changes, redness, or discharge. ENT: Reports rhinorrhea, congestion, sinus pain, no otalgia positive for sore throat. CARDIOVASCULAR: Denies chest pain, palpitations, or edema. RESPIRATORY: Reports cough.? Denies dyspnea. GASTROINTESTINAL: Denies abdominal pain, nausea, vomiting, diarrhea SKIN: Denies rash or itching. MUSCULOSKELETAL: Denies myalgia. NEUROLOGIC: Denies headache.states some tingling in face and jaw All systems reviewed & are unremarkable except as noted in HPI and below PMFSH Past Medical History Medical History (Updated 05/10/22 @ 00:06 by Basilio Frankel) BMI 22.0-22.9, adult BMI 24.0-24.9, adult Celiac disease Hx of psoriatic arthritis Surgical History Surgical History Hx of cholecystectomy Family History Family History Father No problems noted. 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 There is no relevant family history pertinent to the presenting complaint Exam Narrative: GENERAL: Well-appearing, well-nourished, and in no acute distress. HEAD: Normocephalic EYES: PERRLA, conjunctivae clear ENT: Nares clear, turbinates edematous and erythematous, clear discharge. Mucous membranes moist. TM pearly abraham with dull light reflex bilaterally; no tragal tenderness. Oropharynx erythematous without lesions. Tonsils red enlarged and with white exudate, no drooling, no hoarseness, no trismus, uvula midline, states some tightness to throat, respirations even and nonlabored.. NECK: Supple. No lymphadenopathy CHEST: Clear t
== END 2022-05-03 17:40 | disposition home or self-care (01) ==
PROVIDERS: Emergency Provider Registered Nurse; PCP Family Medicine
DX: J03.90 Acute tonsillitis, unspecified (principal); R05.9 Cough, unspecified
CPT/HCPCS: 87081; 87880; 99213; G0463

== ENCOUNTER 2022-05-09 17:15 | Emergency (ER) | payer OTHER, SELFPAY ==
--- NOTE | ~2022-05-09 | CT_ITS ---
EXAMINATION: CT soft tissue neck w con DATE: 05/09/2022 18:52 INDICATION: Pain, foreign body sensation TECHNIQUE: Computed tomography (CT) of the neck was performed with 75 mL Omnipaque-350 intravenous co ntrast. Automated exposure control and iterative reconstruction technique were employed. The dose-mylene gth product was 457.41 mGy-cm. COMPARISON: 09/02/2015 FINDINGS: The thyroid gland is unremarkable. The submandibular and parotid glands are symmetric. Left upper anterior cervical chain lymphadenopathy. There are no masses identified. The superior mediastinum is unremarkable. The airway is unremarkable. Parapharyngeal and pre-glottic fat planes are prese rved. No enhancing neck arteries. The orbits are unremarkable. Visualized sinuses and mastoid ai r cells are well aerated. Lungs are clear. Regional bones normal for age. IMPRESSION: 1. Left upper anterior cervical chain lymphadenopathy Reviewed, dictated and finalized at location K. T[employer] HEALTH OFFICER
[2022-05-09 17:17] VITALS: BP 149/80; PULSE 101; RESP 16; TEMP 36.4; O2SAT 100
--- NOTE | 2022-05-09 17:34 | ED.GENADULT ---
HPI - General Adult General Chief complaint: Unspecified Stated complaint: st Time Seen by Provider: 05/09/22 17:23 Source: patient and RN notes reviewed Mode of arrival: ambulatory Limitations: no limitations History of Present Illness HPI narrative: This is a 26 year old female that presents to the ER for pain in her neck and throat ongoing over the last couple of weeks. Reports feeling like she has a lump in her throat and she has tingling and tightness. Reports it is constant, but at times more severe. She has been taking Tylenol for pain. Reports she was seen at Urgent care and started on Amoxicillin for tonsillitis which she is currently still taking. Denies fever, chest pain, shortness of breath, lower extremity edema, dysphagia, cough, congestion, or headache. Related Data Allergies Allergy/AdvReac Type Severity Reaction Status Date / Time gluten Allergy Intermediate Other Verified 05/09/22 18:22 chlorpheniramine Allergy Hives Verified 05/09/22 18:22 [From Donatussin] ciprofloxacin [From Cipro] Allergy Other Verified 05/09/22 18:22 dextromethorphan Allergy Hives Verified 05/09/22 18:22 [From Donatussin] phenylephrine Allergy Hives Verified 05/09/22 18:22 [From Donatussin] prochlorperazine Allergy Palpitation Verified 05/09/22 18:22 [From Compazine] s cephalexin [From Keflex] AdvReac Vomiting Verified 05/09/22 18:22 Review of Systems Review of Systems: CONSTITUTIONAL: Denies fever, chills EYES: Denies redness, or discharge. ENT: Reports sore throat. Denies rhinorrhea, congestion, or otalgia. CARDIOVASCULAR: Denies chest pain, or edema. RESPIRATORY: Denies cough or dyspnea. GASTROINTESTINAL: Denies nausea, vomiting, or diarrhea. NEUROLOGIC: Denies headache All systems reviewed & are unremarkable except as noted in HPI and below PMFSH Past Medical History Medical History (Updated 05/09/22 @ 19:34 by Lucrecia Cabrera PA-C) BMI 22.0-22.9, adult BMI 24.0-24.9, adult Celiac disease Hx of psoriatic arthritis Surgical History Surgical History Hx of cholecystectomy Family History Family History Father No problems noted. 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 HEAD: Normocephalic, atraumatic. EYES: EOMI. ENT: Nares clear, no rhinorrhea or epistaxis. Mucous membranes moist. Oropharynx with mild tonsillar hypertrophy, no exudate or other lesions. Bilateral TMs pearly abraham non-bulging NECK: Supple. No adenopathy or masses. CHEST: Clear to auscultation. No respiratory distress. No wheezes rales or rhonchi HEART: Regular rate and rhythm. No murmur heard. Normal peripheral pulses. EXTREMITIES: Normal range of motion. No edema. SKIN: Warm, dry, no rash. NEURO: No focal deficits. Alert and oriented x3. PSYCH: Normal mood and affect Course Course Emergency Course: Patient and family updated on workup. Resting comfortably Vital Signs Vital signs: Vital Signs Temperature 97.6 F 05/09/22 17:17 Pulse Rate 101 H 05/09/22 17:17 Respiratory Rate 16 05/09/22 17:17 Blood Pressure 149/80 H 05/09/22 17:17 Pulse Oximetry 100 05/09/22 17:17 Oxygen Delivery Room Air 05/09/22 17:17 Temperature 97.6 F 05/09/22 17:17 Pulse Rate 101 H 05/09/22 17:17 Respiratory Rate 16 05/09/22 17:17 Blood Pressure 149/80 H 05/09/22 17:17 Pulse Oximetry 100 05/09/22 17:17 Oxygen Del
--- NOTE | 2022-05-09 17:37 | ECG_ITS ---
Measurements Intervals [place] Rate: 101 P: 62 NC: 149 QRS: 36 QRSD: 89 T: 41 QT: 311 QTc: 403 Interpretive Statements SINUS TACHYCARDIA POSSIBLE LEFT ATRIAL ENLARGEMENT MINIMAL Q WAVES- INFERIOR LEADS BORDERLINE ECG NO PREVIOUS ECG AVAILABLE FOR COMPARISON Electronically Signed On 05-09-2022 20:09:25 CERTIFIED PHLEBOTOMY TECHNICIAN by Matthew Dumont D.O.
[2022-05-09 17:59] LABS: Strep Group A RT-PCR NOT DETECTED (Negative)
[2022-05-09 18:08] LABS: Basophils Absolute Auto 0.1 K/mm3 (0.0-0.1); Basophils Percent Auto 0.4 % (0.2-1.2); Eosinophils Absolute Auto 0.1 K/mm3 (0-0.3); Eosinophils Percent Auto 0.5 % (0-4.4); Hematocrit 41.6 % (37.0-47.0); Hemoglobin 14.1 g/dL (12.0-15.0); Immature Granulocyte Absolute 0.08 K/mm3 (0.00-0.031); Immature Granulocyte Percent A 0.6 % (0-0.5); Lymphocytes Absolute Auto 2.38 K/mm3 (0.9-3.2); Lymphocytes Percent Auto 18.3 % (18.3-44.2); Mean Corpuscular HGB Conc 33.9 g/dl (32-36); Mean Corpuscular Hemoglobin 29.6 pg (26-34); Mean Corpuscular Volume 87.4 fl (80-100); Mean Platelet Volume 10.7 fl (7.4-10.4); Monocytes Percent Auto 7.4 % (2.6-8.5); Neutrophils Absolute Auto 9.5 K/mm3 (1.3-6.7); Neutrophils Percent Auto 72.8 % (45.5-73.1); Platelet Count Result 332 k/mm3 (150-375); Red Blood Count 4.76 M/mm3 (4.2-5.4); Red Cell Distribution Width 12.2 % (11.5-14.5)
[2022-05-09 18:12] LABS: Influenza A QL RT-PCR Negative (Negative); Influenza B QL RT-PCR Negative (Negative); SARS-CoV-2 RNA PCR Negative
[2022-05-09 18:19] LABS: Alanine Aminotransferase 21 U/L (6-35); Albumin Level 4.6 g/dL (3.5-5.1); Alkaline Phosphatase 59 U/L (38-126); Anion Gap 8 mmol/L (8-16); Aspartate Amino Transferase 22 U/L (14-36); Bilirubin,Total 0.5 mg/dL (0.2-1.3); Blood Urea Nitrogen 6 mg/dL (7-17); Calcium 9.2 mg/dL (8.4-10.2); Carbon Dioxide 25 mmol/L (22-30); Chloride 103 mmol/L (98-107); Estimated CRCL calculation 87 ml/min; Estimated Glomerular Filt Rate > 60; Glucose 110 mg/dL (65-110); Potassium 3.3 mmol/L (3.4-5.0); Sodium 136 mmol/L (137-145)
[2022-05-09] MEDS: SODIUM CHLORIDE 0.9% IV 1,000 ML 999 ML IV CONT (18:29)
[2022-05-09] MEDS: FAMOTIDINE 20 MG/2 ML VIAL IV PUSH (18:32)
[2022-05-09 19:02] LABS: Monoscreen Negative (Negative); Negative Monotest Control Negative (Negative); Positive Monotest Control Positive (Positive)
[2022-05-09 19:50] VITALS: BP 138/77; PULSE 90; RESP 20; O2SAT 98
[2022-05-09] MEDS: POTASSIUM CHLORIDE 20 MEQ TABLET 40 MEQ PO (19:51)
== END 2022-05-09 19:50 | disposition home or self-care (01) ==
PROVIDERS: Emergency Provider Physician Assistant; PCP Family Medicine
DX: R09.89 Other specified symptoms and signs involving the circulatory and respiratory systems (principal); E87.6 Hypokalemia; K90.0 Celiac disease; L40.50 Arthropathic psoriasis, unspecified; Z20.822 Contact with and (suspected) exposure to COVID-19
CPT/HCPCS: 36415; 70491; 80053; 81025; 85025; 86308; 87636; 87651; 93005; 96361; 96374; 99284; A9270; J7030; Q9967

== ENCOUNTER 2022-05-29 18:02 | Emergency (ER) | payer OTHER, SELFPAY ==
[2022-05-29 18:13] VITALS: BP 146/79; PULSE 96; RESP 16; TEMP 36.5; O2SAT 100
--- NOTE | 2022-05-29 18:16 | ED.FEMALEGU ---
HPI - Female Genitourinary General Chief complaint: Urogenital-Female Stated complaint: uti complaint Time Seen by Provider: 05/29/22 18:16 Source: patient, RN notes reviewed and old records reviewed Mode of arrival: ambulatory Limitations: no limitations History of Present Illness HPI Narrative: 26-year-old female who presents to [facility] with complaints of pelvic pain,some urinary incontinence, perineal burning with urination, denies any frequency of urine or back pain. Patient reports that she was recently treated for bacterial vaginosis with Flagyl vaginal cream 05/25/2022. Patient reports that she took home uti test which showed she was positive for leukocytes. Patient denies any fevers, chills or sweats, denies any concern for exposure to STD's, patient states she has an appointment with her urologist next week. MD elicited complaint: UTI Pertinent past history: other (dysuria) Onset (ago): week(s) (1) Location of symptoms: perineum Severity scale (1-10): 8 Related Data Allergies Allergy/AdvReac Type Severity Reaction Status Date / Time cephalexin [From Keflex] AdvReac Intermediate Vomiting Verified 05/29/22 18:07 gluten AdvReac Intermediate Gastrointestinal Verified 05/29/22 18:07 Upset prochlorperazine AdvReac Intermediate Palpitation Verified 05/29/22 18:07 [From Compazine] s chlorpheniramine AdvReac Mild Hives Verified 05/29/22 18:07 [From Donatussin] ciprofloxacin [From Cipro] AdvReac Mild Hives Verified 05/29/22 18:07 dextromethorphan AdvReac Mild Hives Verified 05/29/22 18:07 [From Donatussin] phenylephrine AdvReac Mild Hives Verified 05/29/22 18:07 [From Donatussin] Review of Systems Review of Systems: CONSTITUTIONAL: Denies fever, chills, or sweats. CARDIOVASCULAR: Denies chest pain, palpitations, or edema. RESPIRATORY: Denies cough or dyspnea. GASTROINTESTINAL: Denies abdominal pain, nausea, vomiting, or diarrhea. GENITOURINARY: Reports dysuria,no frequency, some urgency. Denies flank pain or hematuria. SKIN: Denies rash or itching. MUSCULOSKELETAL: Denies back pain or myalgia. Denies CVA tenderness NEUROLOGIC: Denies headache All systems reviewed & are unremarkable except as noted in HPI and below PMFSH Past Medical History Medical History BMI 22.0-22.9, adult BMI 24.0-24.9, adult Celiac disease Hx of psoriatic arthritis Surgical History Surgical History Hx of cholecystectomy Family History Family History Father No problems noted. 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 There is no relevant family history pertinent to the presenting complaint Exam Narrative: GENERAL: Well-appearing, well-nourished, and in no acute distress. HEAD: Normocephalic, atraumatic. NECK: Supple.no lymphadenopathy CHEST: Clear to auscultation. No respiratory distress.SAO2 100% on room air HEART: Regular rate and rhythm. No murmur heard. Normal peripheral pulses. ABDOMEN: Soft, nontender, nondistended, normal active bowel sounds. No CVA tenderness urinary burning reported. EXTREMITIES: Normal range of motion. No edema. SKIN: Warm, dry, no rash. NEURO: No focal deficits. Alert and oriented x3. Course Course Emergency Course: Patient is aware of d
== END 2022-05-29 18:38 | disposition home or self-care (01) ==
PROVIDERS: Emergency Provider Registered Nurse; PCP Family Medicine
DX: N39.0 Urinary tract infection, site not specified (principal); K90.0 Celiac disease; L40.50 Arthropathic psoriasis, unspecified
CPT/HCPCS: 81003; 87086; 99213; G0463

== ENCOUNTER 2022-06-05 16:42 | Outpatient (CLI) | payer OTHER, SELFPAY ==
[2022-06-05 17:06] LABS: Basophils Percent Auto 0.4 % (0.2-1.2); Eosinophils Absolute Auto 0.2 K/mm3 (0-0.3); Eosinophils Percent Auto 2.3 % (0-4.4); Hematocrit 41.1 % (37.0-47.0); Hemoglobin 13.7 g/dL (12.0-15.0); Immature Granulocyte Absolute 0.03 K/mm3 (0.00-0.031); Immature Granulocyte Percent A 0.4 % (0-0.5); Lymphocytes Absolute Auto 2.39 K/mm3 (0.9-3.2); Lymphocytes Percent Auto 31.7 % (18.3-44.2); Mean Corpuscular HGB Conc 33.3 g/dl (32-36); Mean Corpuscular Volume 90.1 fl (80-100); Mean Platelet Volume 11.2 fl (7.4-10.4); Monocytes Absolute Auto 0.5 K/mm3 (0.1-0.6); Monocytes Percent Auto 6.8 % (2.6-8.5); Neutrophils Absolute Auto 4.4 K/mm3 (1.3-6.7); Neutrophils Percent Auto 58.4 % (45.5-73.1); Platelet Count Result 287 k/mm3 (150-375); Red Blood Count 4.56 M/mm3 (4.2-5.4); Red Cell Distribution Width 12.7 % (11.5-14.5); White Blood Count 7.5 K/mm3 (4.5-10.0)
[2022-06-05 17:15] LABS: Anion Gap 8 mmol/L (8-16); Blood Urea Nitrogen 9 mg/dL (7-17); Calcium 9.5 mg/dL (8.4-10.2); Carbon Dioxide 25 mmol/L (22-30); Chloride 103 mmol/L (98-107); Estimated Glomerular Filt Rate > 60; Glucose 96 mg/dL (65-110); Potassium 3.9 mmol/L (3.4-5.0); Sodium 136 mmol/L (137-145)
[2022-06-05 18:47] LABS: Free T4 Free Thyroxine 1.18 ng/mL (0.78-2.19)
== END 2022-06-05 16:43 | disposition home or self-care (01) ==
LOC: ANHLAB 16:43
PROVIDERS: PCP Family Medicine; Visit Provider Physician Assistant Medical
DX: E87.6 Hypokalemia (principal); Z80.8 Family history of malignant neoplasm of other organs or systems; D72.829 Elevated white blood cell count, unspecified
CPT/HCPCS: 36415; 80048; 84439; 84443; 85025

== ENCOUNTER 2022-06-12 21:27 | Emergency (ER) | payer OTHER, SELFPAY ==
--- NOTE | ~2022-06-12 | CT_ITS ---
EXAMINATION: CT abdomen pelvis w con DATE: 06/13/2022 01:21 INDICATION: UTI. Low back pain. TECHNIQUE: Computed tomography (CT) of the abdomen and pelvis was performed with 100 cc Omnipaque 350 intravenous contrast. The dose-length product was 276.68 mGy-cm. Automated exposure control and iter ative reconstruction technique were employed. COMPARISON: CT dated 12/09/2021. FINDINGS: Lung bases are unremarkable. Heart size normal. No significant pleural or pericardial effus ion. No significant vascular abnormality. No lymphadenopathy. There is an IUD in the uterus. Small am ount of free fluid in the pelvis. The liver, pancreas, spleen, adrenal glands and kidneys are unremarkable. Status post cholecystectomy . Nonobstructive bowel gas pattern. Normal appendix. No free air. There is a 1.5 cm left adnexal cyst , likely ovarian. No acute osseous abnormality. Mild lumbar spondylosis. IMPRESSION: 1. Left adnexal cyst measuring 1.5 cm, likely ovarian. Small amount of free fluid in the pelvis. 2: IUD present in the endometrium. Reviewed, dictated and finalized at location A. UNICATIONS CONSULTANT IMPRESSION: 1. Left adnexal cyst measuring 1.5 cm, likely ovarian. Small amount of free flu id in the pelvis. 2: IUD present in the endometrium.
[2022-06-12 21:32] VITALS: BP 145/87; PULSE 133; RESP 20; TEMP 36.4; O2SAT 100
[2022-06-12 21:52] LABS: Appearance Urine Cloudy (Clear); Bilirubin Urine Negative (Negative); Blood Urine Trace-intact (Negative); Color Urine Other (Yellow); Glucose Urine UA Negative (Negative); Ketones Urine Negative (Negative); Leukocyte Esterase Ur 1+ LEU/UL (Negative); Nitrate Urine Negative (Negative); Protein Urine Negative (Negative); Urobilinogen Urine 0.2 mg/dL (<2.0)
[2022-06-12 22:07] LABS: Bacteria Urine Trace /hpf; Squamous Epithelial Cell Urine Many /hpf (Few)
[2022-06-12 22:36] LABS: Add Urine Microscopic? YES
--- NOTE | 2022-06-13 00:32 | ED.FEMALEGU ---
HPI - Female Genitourinary General Chief complaint: Urogenital-Female Stated complaint: uti, back pain Time Seen by Provider: 06/12/22 23:17 Source: patient and old records reviewed Mode of arrival: ambulatory Limitations: no limitations History of Present Illness HPI Narrative: Patient is a 26-year-old female, with a PMHx of interstitial cystitis, who presents the ED with reports of urinary symptoms and low back pain. Patient reports she has had intermittent urinary symptoms, dysuria for the past few weeks. She has been seen at several urgent cares but had negative urine dipsticks. She was seen by Anita Long, [facility], urology last week and again had a negative dipstick in the office. Her urine was sent for culture. Patient was notified on Saturday that her urine culture grew out Enterococcus faecalis. She was started on Augmentin and has been taking this as prescribed. Patient developed pain in her bilateral lower back today. Pain has worsened throughout the day. Somewhat radiates around to her lower abdomen. She also reports nausea but denies vomiting. Denies fever, hematuria. Related Data Allergies Allergy/AdvReac Type Severity Reaction Status Date / Time cephalexin [From Keflex] AdvReac Intermediate Vomiting Verified 06/12/22 21:32 gluten AdvReac Intermediate Gastrointestinal Verified 06/12/22 21:32 Upset prochlorperazine AdvReac Intermediate Palpitation Verified 06/12/22 21:32 [From Compazine] s chlorpheniramine AdvReac Mild Hives Verified 06/12/22 21:32 [From Donatussin] ciprofloxacin [From Cipro] AdvReac Mild Hives Verified 06/12/22 21:32 dextromethorphan AdvReac Mild Hives Verified 06/12/22 21:32 [From Donatussin] phenylephrine AdvReac Mild Hives Verified 06/12/22 21:32 [From Donatussin] Review of Systems Review of Systems: CONSTITUTIONAL: Denies fever, chills, or sweats. CARDIOVASCULAR: Denies chest pain. RESPIRATORY: Denies dyspnea. GASTROINTESTINAL: See HPI. GENITOURINARY: See HPI. SKIN: Denies rash or itching. MUSCULOSKELETAL: See HPI. All systems reviewed & are unremarkable except as noted in HPI and below PMFSH Past Medical History Medical History BMI 22.0-22.9, adult BMI 24.0-24.9, adult BMI 26.0-26.9,adult Celiac disease Hx of psoriatic arthritis Surgical History Surgical History Hx of cholecystectomy Family History Family History Father No problems noted. Mother Depression Thyroid cancer Thyroid disorder Sibling Thyroid disorder COVID-19 Social History Social History Smoking status: Never smoker Second hand tobacco smoke exposure: No Alcohol intake: never Substance use: never Substance use type: does not use Lack of Transportation: No Lack of Food: Never True Current Housing: I Have Housing Concerned About Future Housing: No Difficulty Paying Gas/Electric Bills: No Difficulty Paying for Meds: No Currently Unemployed: No Education: Bachelor's Degree Difficulty w/ Childcare or Family Care: No Living arrangements: with family Occupation/Education: occupation 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 HEAD: Normocephalic, atraumatic. NECK: Supple. No adenopathy, no masses. RESPIRATORY: Airway patent, respirations nonlabored. Clear to auscultation bilaterally, no rales, rhonchi, wheezing. CARDIOVASCULAR: Tachycardic with regular rhythm without murmurs, rubs, or gallops. Peripheral pulses 2+ and equal bilaterally. ABDOMINAL: Soft, mild tenderness throughout suprapubic region/lower abdomen, nondistended, no hepatosplenomegaly. N
[2022-06-13 00:56] LABS: Basophils Percent Auto 0.3 % (0.2-1.2); Eosinophils Absolute Auto 0.1 K/mm3 (0-0.3); Eosinophils Percent Auto 0.8 % (0-4.4); Hemoglobin 14.1 g/dL (12.0-15.0); Immature Granulocyte Absolute 0.06 K/mm3 (0.00-0.031); Immature Granulocyte Percent A 0.5 % (0-0.5); Lymphocytes Absolute Auto 1.71 K/mm3 (0.9-3.2); Lymphocytes Percent Auto 15.7 % (18.3-44.2); Mean Corpuscular HGB Conc 34.4 g/dl (32-36); Mean Corpuscular Hemoglobin 30.4 pg (26-34); Mean Corpuscular Volume 88.4 fl (80-100); Monocytes Absolute Auto 0.6 K/mm3 (0.1-0.6); Monocytes Percent Auto 5.7 % (2.6-8.5); Neutrophils Absolute Auto 8.4 K/mm3 (1.3-6.7); Platelet Count Result 264 k/mm3 (150-375); Red Blood Count 4.64 M/mm3 (4.2-5.4); Red Cell Distribution Width 12.6 % (11.5-14.5); White Blood Count 10.9 K/mm3 (4.5-10.0)
[2022-06-13] MEDS: ONDANSETRON INJ 4 MG/2 ML VIAL IV PUSH (01:04)
[2022-06-13] MEDS: SODIUM CHLORIDE 0.9% IV 1,000 ML 999 ML IV CONT (01:04)
[2022-06-13 01:06] LABS: Alanine Aminotransferase 21 U/L (6-35); Albumin Level 4.9 g/dL (3.5-5.1); Alkaline Phosphatase 55 U/L (38-126); Anion Gap 9 mmol/L (8-16); Aspartate Amino Transferase 24 U/L (14-36); Bilirubin,Total 0.5 mg/dL (0.2-1.3); Blood Urea Nitrogen 12 mg/dL (7-17); Calcium 9.3 mg/dL (8.4-10.2); Carbon Dioxide 22 mmol/L (22-30); Chloride 104 mmol/L (98-107); Estimated CRCL calculation 99 ml/min; Estimated Glomerular Filt Rate > 60; Glucose 110 mg/dL (65-110); Potassium 3.5 mmol/L (3.4-5.0); Sodium 135 mmol/L (137-145)
--- NOTE | 2022-06-13 01:28 | PC.NURSE ---
Pt c/o lower back pain that radiates upwards and around to her lower abdomen. She has been taking antibiotics for known UTI. She also c/o nausea.
[2022-06-13 01:52] VITALS: BP 124/75; PULSE 111; RESP 18; O2SAT 99
[2022-06-13 02:39] VITALS: BP 123/66; PULSE 115; RESP 18; O2SAT 98
[2022-06-13 03:52] VITALS: BP 113/66; PULSE 113; RESP 18; O2SAT 99
== END 2022-06-13 04:29 | disposition home or self-care (01) ==
PROVIDERS: Emergency Medicine; Emergency Provider Physician Assistant; PCP Family Medicine
DX: N30.01 Acute cystitis with hematuria (principal); K90.0 Celiac disease; L40.50 Arthropathic psoriasis, unspecified; N30.10 Interstitial cystitis (chronic) without hematuria
CPT/HCPCS: 36415; 74177; 80053; 81001; 81025; 85025; 87086; 87088; 87106; 96365; 96375; 99284; J0131; J2405; J2543; J7030; Q9967

== ENCOUNTER 2022-07-25 17:00 | Emergency (ER) | payer OTHER, SELFPAY ==
[2022-07-25 17:06] VITALS: BP 132/85; PULSE 105; RESP 16; TEMP 36.8; O2SAT 100
[2022-07-25 17:13] VITALS: BP 132/85; PULSE 105; RESP 16; TEMP 36.8; O2SAT 100
--- NOTE | 2022-07-25 17:13 | ED.URI ---
HPI - URI/Sore Throat General Chief Complaint: Upper Respiratory Infection Stated Complaint: R SIDED THROAT PAIN/DIFF SWALLOWING Time Seen by Provider: 07/25/22 17:13 Source: patient and RN notes reviewed History of Present Illness HPI Narrative: Patient is a 26-year-old female who presents to urgent care with complaints of sore throat and difficulty swallowing. Patient states that she noticed earlier today while she was eating her lunch it was very painful on the right side all the way down to her collarbone. Patient states that most recently she has been having difficulty swallowing and pain with swallowing and was referred to a speech therapist by her primary care doctor. Speech therapy suggested she go back to her PCP because they ?cannot do anything for her?. Patient states that she is supposed to be seen in ENT through her PCP referral. Currently denies any difficulty swallowing. Denies any recent upper respiratory illness. Denies any fevers. Patient has not taken anything [id number] for her symptoms. No other acute complaints. No acute distress noted. Patient aware of the plan of care. Some parts of this dictation were generated by voice recognition software and may contain typographical and/or grammatical inaccuracies. Related Data Home Medications Medication Instructions Recorded Confirmed ascorbic acid (vitamin C) 500 mg 500 mg PO DAILY 07/25/22 07/25/22 tablet (Vitamin C) methenamine hippurate 1 gram tablet 1 g PO BID 07/25/22 07/25/22 Allergies Allergy/AdvReac Type Severity Reaction Status Date / Time cephalexin [From Keflex] AdvReac Intermediate Vomiting Verified 07/25/22 17:09 gluten AdvReac Intermediate Gastrointestinal Verified 07/25/22 17:09 Upset prochlorperazine AdvReac Intermediate Palpitation Verified 07/25/22 17:09 [From Compazine] s chlorpheniramine AdvReac Mild Hives Verified 07/25/22 17:09 [From Donatussin] ciprofloxacin [From Cipro] AdvReac Mild Hives Verified 07/25/22 17:09 dextromethorphan AdvReac Mild Hives Verified 07/25/22 17:09 [From Donatussin] phenylephrine AdvReac Mild Hives Verified 07/25/22 17:09 [From Donatussin] Review of Systems Review of Systems: CONSTITUTIONAL: Denies fever, chills, or sweats. EYES: Denies visual changes, redness, or discharge. ENT: Denies rhinorrhea, congestion, otalgia. Reports of painful swallowing CARDIOVASCULAR: Denies chest pain, palpitations, or edema. RESPIRATORY: Denies cough or dyspnea. GASTROINTESTINAL: Denies abdominal pain, nausea, vomiting, or diarrhea. GENITOURINARY: Denies dysuria or hematuria. SKIN: Denies rash or itching. MUSCULOSKELETAL: Denies back pain, joint pain, or myalgia. NEUROLOGIC: Denies headache, numbness, or weakness. All other systems reviewed are negative, except as documented in HPI. [facility] Past Medical History Medical History BMI 22.0-22.9, adult BMI 24.0-24.9, adult BMI 26.0-26.9,adult Celiac disease Hx of psoriatic arthritis Surgical History Surgical History Hx of cholecystectomy Family History Family History Father No problems noted. Mother Depression Thyroid cancer Thyroid disorder Sibling Thyroid disorder COVID-19 Social History Social History Smoking status: Never smoker Second hand tobacco smoke exposure: No Alcohol intake: never Substance use: never Substance use type: does not use Lack of Transportation: No Lack of Food: Never True Current Housing: I Have Housing Concerned About Future Housing: No Difficulty Paying Gas/Electric Bills: No Difficulty Paying for Meds: No Currently Unemployed: No Education: Bachelor's Degree Difficulty w/ Childcare or Family Care: No Living arrangements: with family Occupation/Education:
== END 2022-07-25 17:54 | disposition home or self-care (01) ==
PROVIDERS: Emergency Provider Nurse Practitioner Family; PCP Family Medicine
DX: J02.9 Acute pharyngitis, unspecified (principal); L40.50 Arthropathic psoriasis, unspecified
CPT/HCPCS: 87081; 87880; 99213; G0463

== ENCOUNTER 2022-08-09 19:33 | Emergency (ER) | payer OTHER, SELFPAY ==
--- NOTE | 2022-08-09 19:38 | ED.SKABFB ---
HPI - Skin/Abscess/Foreign Bdy General Chief complaint: Skin/Abscess/Foreign Body Stated complaint: Abscess Under Lt Breast Time Seen by Provider: 08/09/22 19:39 Source: patient Mode of arrival: ambulatory Limitations: no limitations History of Present Illness HPI narrative: 26-year-old female presents with complaint of redness and swelling to left breast. Started 3 days ago and getting progressively worse. Patient is concerned that she has an ingrown hair. She does shave the hair around her nipples. No drainage. Afebrile. All systems reviewed and negative except as noted above. Related Data Allergies Allergy/AdvReac Type Severity Reaction Status Date / Time cephalexin [From Keflex] AdvReac Intermediate Vomiting Verified 08/09/22 19:44 gluten AdvReac Intermediate Gastrointestinal Verified 08/09/22 19:44 Upset prochlorperazine AdvReac Intermediate Palpitation Verified 08/09/22 19:44 [From Compazine] s chlorpheniramine AdvReac Mild Hives Verified 08/09/22 19:44 [From Donatussin] ciprofloxacin [From Cipro] AdvReac Mild Hives Verified 08/09/22 19:44 dextromethorphan AdvReac Mild Hives Verified 08/09/22 19:44 [From Donatussin] phenylephrine AdvReac Mild Hives Verified 08/09/22 19:44 [From Donatussin] Review of Systems Review of Systems: CONSTITUTIONAL: Denies fever, chills, or sweats. EYES: Denies visual changes, redness, or discharge. ENT: Denies rhinorrhea, congestion, sore throat, or otalgia. CARDIOVASCULAR: Denies chest pain, palpitations, or edema. RESPIRATORY: Denies cough or dyspnea. GASTROINTESTINAL: Denies abdominal pain, nausea, vomiting, or diarrhea. GENITOURINARY: Denies dysuria or hematuria. SKIN: Denies rash or itching. Reports redness and swelling to her left breast. MUSCULOSKELETAL: Denies back pain, joint pain, or myalgia. NEUROLOGIC: Denies headache, numbness, or weakness. PSYCHIATRIC: Denies anxiety or depression. All other systems reviewed are negative, except as documented in HPI. [facility] Past Medical History Medical History BMI 22.0-22.9, adult BMI 24.0-24.9, adult BMI 26.0-26.9,adult Celiac disease Hx of psoriatic arthritis Surgical History Surgical History Hx of cholecystectomy Family History Family History Father No problems noted. Mother Depression Thyroid cancer Thyroid disorder Sibling Thyroid disorder COVID-19 Social History Social History Smoking status: Never smoker Second hand tobacco smoke exposure: No Alcohol intake: never Substance use: never Substance use type: does not use Lack of Transportation: No Lack of Food: Never True Current Housing: I Have Housing Concerned About Future Housing: No Difficulty Paying Gas/Electric Bills: No Difficulty Paying for Meds: No Currently Unemployed: No Education: Bachelor's Degree Difficulty w/ Childcare or Family Care: No Living arrangements: with family Occupation/Education: occupation 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 There is no relevant family history pertinent to the presenting complaint. Exam Narrative: GENERAL: This is a well-nourished, well-developed patient, in no apparent distress. HEAD: normocephalic, atraumatic. EYES: PERRL. Sclera clear/white. Vision is grossly intact. EARS: External ears normal NOSE: External nose normal NECK: Neck supple, non-tender without lymphadenopathy, masses or thyromegaly. CARDIOVASCULAR: Regular rate and rhythm without murmurs, gallops, or rubs. RESPIRATORY: Clear to auscultation. Breath sounds equal bilaterally. No wheezes, rales,
[2022-08-09 19:41] VITALS: BP 136/75; PULSE 128; RESP 16; TEMP 37.2; O2SAT 100
== END 2022-08-09 19:55 | disposition home or self-care (01) ==
PROVIDERS: Emergency Provider Nurse Practitioner Family; PCP Family Medicine
DX: N61.0 Mastitis without abscess (principal); K90.0 Celiac disease; L40.50 Arthropathic psoriasis, unspecified
CPT/HCPCS: 99213; G0463

== ENCOUNTER 2022-08-25 15:42 | Emergency (ER) | payer OTHER, SELFPAY ==
--- NOTE | ~2022-08-25 | XR_ITS ---
EXAMINATION: XR abdomen/kub 1V DATE: 08/25/2022 16:38 INDICATION: Low back and abdominal pain. Bilateral flank pain. TECHNIQUE: A supine view of the abdomen on 2 radiographs was obtained. COMPARISON: CT dated 06/13/2022 FINDINGS: Numerous tiny foci of high attenuation ingested material scattered amongst the moderate amount of sto ol in the colon. No dilated loops of gas-filled bowel to suggest obstruction. No calcific lesions tarah picious for urolithiasis. Cholecystectomy clips in right upper quadrant. T-shaped IUD projects over t he central pelvis. Lung bases are clear. Heart size is normal. Bones are unremarkable. IMPRESSION: 1. Normal bowel gas pattern. 2. IUD. Reviewed, dictated and finalized at location A.
[2022-08-25 15:54] VITALS: BP 128/81; PULSE 92; RESP 18; TEMP 36.6; O2SAT 100
--- NOTE | 2022-08-25 16:09 | ED.GENADULT ---
HPI - General Adult General Chief complaint: Urogenital-Female Stated complaint: . Time Seen by Provider: 08/25/22 16:09 Source: patient Mode of arrival: ambulatory Limitations: no limitations History of Present Illness HPI narrative: 26-year-old female patient presents to the [facility] with complaints of urinary symptoms that started this morning. Patient states she has had pain and burning with urination as well as increase in frequency. Patient also complaining of bilateral flank pain and lower back pain. Patient states she is coming off of her. At this time. Patient denies or concerns for STDs. Related Data Home Medications Medication Instructions Recorded Confirmed No Home Medications 08/25/22 08/25/22 Allergies Allergy/AdvReac Type Severity Reaction Status Date / Time cephalexin [From Keflex] AdvReac Intermediate Vomiting Verified 08/25/22 16:01 gluten AdvReac Intermediate Gastrointestinal Verified 08/25/22 16:01 Upset prochlorperazine AdvReac Intermediate Palpitation Verified 08/25/22 16:01 [From Compazine] s chlorpheniramine AdvReac Mild Hives Verified 08/25/22 16:01 [From Donatussin] ciprofloxacin [From Cipro] AdvReac Mild Hives Verified 08/25/22 16:01 dextromethorphan AdvReac Mild Hives Verified 08/25/22 16:01 [From Donatussin] phenylephrine AdvReac Mild Hives Verified 08/25/22 16:01 [From Donatussin] Review of Systems Review of Systems: CONSTITUTIONAL: Denies fever, chills, or sweats. EYES: Denies visual changes, redness, or discharge. ENT: Denies rhinorrhea, congestion, sore throat, or otalgia. CARDIOVASCULAR: Denies chest pain, palpitations, or edema. RESPIRATORY: Denies cough or dyspnea. GASTROINTESTINAL: Denies abdominal pain, nausea, vomiting, or diarrhea. GENITOURINARY: Positive dysuria , denieshematuria. SKIN: Denies rash or itching. MUSCULOSKELETAL: Denies back pain, joint pain, or myalgia. NEUROLOGIC: Denies headache, numbness, or weakness. PSYCHIATRIC: Denies anxiety or depression. [facility] Past Medical History Medical History BMI 22.0-22.9, adult BMI 24.0-24.9, adult BMI 26.0-26.9,adult Celiac disease Hx of psoriatic arthritis Surgical History Surgical History Hx of cholecystectomy Family History Family History Father No problems noted. Mother Depression Thyroid cancer Thyroid disorder Sibling Thyroid disorder COVID-19 Social History Social History Smoking status: Never smoker Second hand tobacco smoke exposure: No Alcohol intake: never Substance use: never Substance use type: does not use Lack of Transportation: No Lack of Food: Never True Current Housing: I Have Housing Concerned About Future Housing: No Difficulty Paying Gas/Electric Bills: No Difficulty Paying for Meds: No Currently Unemployed: No Education: Bachelor's Degree Difficulty w/ Childcare or Family Care: No Living arrangements: with family Occupation/Education: occupation 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 HEAD: Normocephalic, atraumatic. EYES: PERRLA and EOMI. ENT: Nares clear, no rhinorrhea or epistaxis. Mucous membranes moist. NECK: Supple. No lymphadenopathy CHEST: Clear to auscultation. No respiratory distress. HEART: Regular rate and rhythm. No murmur heard. Normal peripheral pulses. ABDOMEN: Soft, nontender, nondistended, normal active bowel sounds. EXTREMITIES: Normal range of motion. No edema. SKIN: Warm, dry, no rash. NEURO: No focal deficits. Alert and oriented x3. Course Course Level of Care: [facility] Care Visit R
== END 2022-08-25 17:30 | disposition home or self-care (01) ==
PROVIDERS: Emergency Provider Nurse Practitioner Family; PCP Family Medicine
DX: R30.0 Dysuria (principal); R82.90 Unspecified abnormal findings in urine
CPT/HCPCS: 74018; 81003; 81025; 87086; 99213; G0463

== ENCOUNTER 2022-08-27 08:15 | Emergency (ER) | payer OTHER, SELFPAY ==
--- NOTE | ~2022-08-27 | US_ITS ---
Limited Abdominal Sonogram: Real-time sonographic imaging of the right upper quadrant was performed. Clinical History: Abdominal pain Findings: The liver appears normal with no evidence of mass lesion or bile duct dilatation. Main por deng vein demonstrates normal direction of flow. The gallbladder is absent, compatible prior cholecyst ectomy. The common bile duct measures 6 mm. The visualized pancreas, aorta, and IVC are unremarkable . Impression: Status post cholecystectomy, otherwise unremarkable exam. Reviewed, dictated and finalized at location M. Impression: Status post cholecystectomy, otherwise unremarkable exam.
[2022-08-27 08:18] VITALS: BP 122/78; PULSE 98; RESP 20; TEMP 36.4; O2SAT 100
[2022-08-27 08:44] VITALS: BP 125/78; PULSE 90; RESP 18; O2SAT 100
--- NOTE | 2022-08-27 08:49 | ED.ABDPAIN ---
HPI - Abdominal Pain General Chief Complaint: Abdominal Pain Stated Complaint: RUQ pain x 2 weeks, worse now Time Seen by Provider: 08/27/22 08:24 History of Present Illness HPI narrative: Patient with history of biliary colic status post cholecystectomy presenting with pain and nausea to the right upper quadrant/epigastric area, for the last 2 weeks. Related Data Allergies Allergy/AdvReac Type Severity Reaction Status Date / Time cephalexin [From Keflex] AdvReac Intermediate Vomiting Verified 08/25/22 16:01 gluten AdvReac Intermediate Gastrointestinal Verified 08/25/22 16:01 Upset prochlorperazine AdvReac Intermediate Palpitation Verified 08/25/22 16:01 [From Compazine] s chlorpheniramine AdvReac Mild Hives Verified 08/25/22 16:01 [From Donatussin] ciprofloxacin [From Cipro] AdvReac Mild Hives Verified 08/25/22 16:01 dextromethorphan AdvReac Mild Hives Verified 08/25/22 16:01 [From Donatussin] phenylephrine AdvReac Mild Hives Verified 08/25/22 16:01 [From Donatussin] Review of Systems Review of Systems: CONST: No fever. HEENT: No sore throat C/V: No chest pain RESP: No cough GI: Reports abdominal pain, nausea, vomiting : No dysuria. M/S: No joint pain. SKIN: No rash. NEURO: [No headache or focal numbness or weakness] PSYCH: [No depression] PMFSH Past Medical History Medical History BMI 22.0-22.9, adult BMI 24.0-24.9, adult BMI 26.0-26.9,adult Celiac disease Hx of psoriatic arthritis Surgical History Surgical History Hx of cholecystectomy Family History Family History Father No problems noted. Mother Depression Thyroid cancer Thyroid disorder Sibling Thyroid disorder COVID-19 Social History Social History Smoking status: Never smoker Second hand tobacco smoke exposure: No Alcohol intake: never Substance use: never Substance use type: does not use Lack of Transportation: No Lack of Food: Never True Current Housing: I Have Housing Concerned About Future Housing: No Difficulty Paying Gas/Electric Bills: No Difficulty Paying for Meds: No Currently Unemployed: No Education: Bachelor's Degree Difficulty w/ Childcare or Family Care: No Living arrangements: with family Occupation/Education: occupation 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 EYES: EOMI, conjunctiva normal ENT: Hearing grossly intact LUNGS: Nonlabored breathing. HEART: [Regular rate and rhythm] ABD: [Soft], [very minimally tender to palpation] epigastric EXT: Normal range of motion SKIN: [No rashes or lesions.] NEURO: [Alert and oriented x 3. No gross focal sensory or strength deficits.] PSYCH: Normal affect Course Vital Signs Vital signs: Vital Signs Temperature 97.5 F L 08/27/22 08:18 Pulse Rate 98 08/27/22 08:18 Respiratory Rate 20 08/27/22 08:18 Blood Pressure 122/78 08/27/22 08:18 Pulse Oximetry 100 08/27/22 08:18 Oxygen Delivery Room Air 08/27/22 08:18 Temperature 97.5 F L 08/27/22 08:18 Pulse Rate 78 08/27/22 10:03 Respiratory Rate 16 08/27/22 10:03 Blood Pressure 122/74 08/27/22 10:03 Pulse Oximetry 100 08/27/22 10:03 Oxygen Delivery Room Air 08/27/22 08:18 MDM - Abdominal Pain MDM Narrative Medical decision making narrative: Electronic medical record was reviewed. Patient presented to the ED with complaint of [abdominal pain and vomiting]. Vitals [were within acceptable limits]. Physical exam revealed soft abdomen with very min
[2022-08-27 09:02] LABS: Basophils Percent Auto 0.3 % (0.2-1.2); Eosinophils Absolute Auto 0.1 K/mm3 (0-0.3); Eosinophils Percent Auto 1.6 % (0-4.4); Hematocrit 40.6 % (37.0-47.0); Immature Granulocyte Absolute 0.01 K/mm3 (0.00-0.031); Immature Granulocyte Percent A 0.2 % (0-0.5); Lymphocytes Absolute Auto 1.61 K/mm3 (0.9-3.2); Lymphocytes Percent Auto 25.9 % (18.3-44.2); Mean Corpuscular HGB Conc 34.5 g/dl (32-36); Mean Corpuscular Hemoglobin 30.8 pg (26-34); Mean Corpuscular Volume 89.4 fl (80-100); Mean Platelet Volume 11.3 fl (7.4-10.4); Monocytes Absolute Auto 0.4 K/mm3 (0.1-0.6); Monocytes Percent Auto 6.6 % (2.6-8.5); Neutrophils Absolute Auto 4.1 K/mm3 (1.3-6.7); Neutrophils Percent Auto 65.4 % (45.5-73.1); Platelet Count Result 275 k/mm3 (150-375); Red Blood Count 4.54 M/mm3 (4.2-5.4); Red Cell Distribution Width 12.5 % (11.5-14.5); White Blood Count 6.2 K/mm3 (4.5-10.0)
[2022-08-27 09:10] LABS: Alanine Aminotransferase 35 U/L (6-35); Albumin Level 5.2 g/dL (3.5-5.1); Alkaline Phosphatase 64 U/L (38-126); Anion Gap 11 mmol/L (8-16); Aspartate Amino Transferase 31 U/L (14-36); Bilirubin,Total 0.7 mg/dL (0.2-1.3); Blood Urea Nitrogen 7 mg/dL (7-17); Calcium 9.7 mg/dL (8.4-10.2); Carbon Dioxide 24 mmol/L (22-30); Chloride 105 mmol/L (98-107); Estimated CRCL calculation 99 ml/min; Estimated Glomerular Filt Rate > 60; Glucose 96 mg/dL (65-110); Lipase 55 U/L (23-300); Potassium 3.6 mmol/L (3.4-5.0); Sodium 140 mmol/L (137-145)
[2022-08-27] MEDS: LACTATED RINGERS 1,000 ML 999 ML IV CONT (09:22)
[2022-08-27] MEDS: ONDANSETRON INJ 4 MG/2 ML VIAL IV PUSH (09:22)
[2022-08-27] MEDS: FAMOTIDINE 20 MG/2 ML VIAL IV PUSH (09:22)
[2022-08-27 10:03] VITALS: BP 122/74; PULSE 78; RESP 16; O2SAT 100
== END 2022-08-27 10:10 | disposition home or self-care (01) ==
PROVIDERS: Emergency Provider Emergency Medicine; PCP Family Medicine
DX: R10.13 Epigastric pain (principal); Z90.49 Acquired absence of other specified parts of digestive tract; K90.0 Celiac disease; L40.50 Arthropathic psoriasis, unspecified
CPT/HCPCS: 36415; 76705; 80053; 81025; 83690; 85025; 96361; 96374; 96375; 99284; J2405; J7120

== ENCOUNTER 2022-10-23 10:43 | Emergency (ER) | payer OTHER, SELFPAY ==
--- NOTE | ~2022-10-23 | XR_ITS ---
EXAMINATION: XR chest 2V DATE: 10/23/2022 12:48 INDICATION: Shortness of breath TECHNIQUE: PA and lateral views of the chest are obtained. COMPARISON: 12/30/2019 FINDINGS: The lungs are free of acute opacities. No pleural effusion or pneumothorax. The cardiomedia stinal silhouette is normal. The visualized bones and soft tissues are unremarkable. Surgical clips i n the right upper quadrant are likely from prior cholecystectomy. IMPRESSION: 1. No acute cardiopulmonary abnormality. Reviewed, dictated and finalized at location L.
--- NOTE | ~2022-10-23 | CT_ITS ---
EXAMINATION: CTA chest PE protocol DATE: 10/23/2022 14:27 INDICATION: elevated DDimer TECHNIQUE: Computed tomography angiography (CTA) of the chest was performed with 100 mL Omnipaque-350 intravenous contrast timed to evaluate the pulmonary arteries. Coronal maximum intensity projection 3D-reconstructions were created by the technologist. The dose-length product (DLP) was 206.66 mGy-cm. Automated exposure control and iterative reconstruction technique were employed. COMPARISON: X-ray chest, same date. FINDINGS: Lung parenchyma and airways: Clear. Pleura: Unremarkable. Thoracic inlet, axillae and chest wall: Unremarkable. Thoracic aorta: Normal. Mediastinum: Normal. Heart and pericardium: Normal. Coronary artery calcifications: Absent. Upper abdomen: Cholecystectomy clips. Bones: No acute osseous finding. Pulmonary arteries: Study quality: Mild motion artifact and beam hardening, overall diagnostic. No pu lmonary emboli detected. IMPRESSION: No CT evidence of acute pulmonary embolus. No acute thoracic process detected. Reviewed, dictated and finalized at location K.
[2022-10-23 10:47] VITALS: BP 134/83; PULSE 108; RESP 16; TEMP 36.9; O2SAT 100
--- NOTE | 2022-10-23 11:03 | PC.NURSE ---
patient ambulated to restroom with standby assistance. denies any dizziness or being lightheaded. patient upper extremities shaky. assisted into bed, monitor applied and call light within reach.
--- NOTE | 2022-10-23 11:38 | ECG_ITS ---
Measurements Intervals [place] Rate: 108 P: 55 PA: 150 QRS: 30 QRSD: 87 T: 25 QT: 312 QTc: 419 Interpretive Statements SINUS TACHYCARDIA COMPARED TO ECG 05/09/2022 18:12:31 NO SIGNIFICANT CHANGES Electronically Signed On 10-23-2022 13:56:53 CDT by Markel Donahue M.D.
[2022-10-23 12:05] LABS: Basophils Percent Auto 0.4 % (0.2-1.2); Eosinophils Absolute Auto 0.2 K/mm3 (0-0.3); Eosinophils Percent Auto 1.5 % (0-4.4); Hematocrit 41.6 % (37.0-47.0); Hemoglobin 13.8 g/dL (12.0-15.0); Immature Granulocyte Absolute 0.03 K/mm3 (0.00-0.031); Immature Granulocyte Percent A 0.3 % (0-0.5); Lymphocytes Percent Auto 13.3 % (18.3-44.2); Mean Corpuscular HGB Conc 33.2 g/dl (32-36); Mean Corpuscular Hemoglobin 29.9 pg (26-34); Mean Corpuscular Volume 90.2 fl (80-100); Mean Platelet Volume 10.9 fl (7.4-10.4); Monocytes Absolute Auto 0.5 K/mm3 (0.1-0.6); Monocytes Percent Auto 4.7 % (2.6-8.5); Neutrophils Percent Auto 79.8 % (45.5-73.1); Platelet Count Result 274 k/mm3 (150-375); Red Blood Count 4.61 M/mm3 (4.2-5.4); Red Cell Distribution Width 12.1 % (11.5-14.5); White Blood Count 11.3 K/mm3 (4.5-10.0)
[2022-10-23 12:10] VITALS: BP 130/82; PULSE 120; RESP 22; O2SAT 100
[2022-10-23 12:18] LABS: Partial Thromboplastin Time 28.2 SECONDS (22.3-36.8)
[2022-10-23 12:23] LABS: Alanine Aminotransferase 23 U/L (6-35); Albumin Level 4.8 g/dL (3.5-5.1); Alkaline Phosphatase 59 U/L (38-126); Anion Gap 9 mmol/L (8-16); Aspartate Amino Transferase 29 U/L (14-36); Bilirubin,Total 0.4 mg/dL (0.2-1.3); Blood Urea Nitrogen 7 mg/dL (7-17); Calcium 9.7 mg/dL (8.4-10.2); Carbon Dioxide 24 mmol/L (22-30); Chloride 106 mmol/L (98-107); Estimated CRCL calculation 99 ml/min; Estimated Glomerular Filt Rate > 60; Glucose 122 mg/dL (65-110); Magnesium 1.9 mg/dL (1.6-2.3); Potassium 3.5 mmol/L (3.4-5.0); Sodium 139 mmol/L (137-145)
[2022-10-23] MEDS: SODIUM CHLORIDE 0.9% IV 1,000 ML 999 ML IV CONT (12:35)
[2022-10-23 12:46] LABS: Appearance Urine Clear (Clear); Bacteria Urine None Seen /hpf; Bilirubin Urine Negative (Negative); Blood Urine Trace (Negative); Color Urine Yellow (Yellow); Glucose Urine UA Negative (Negative); Ketones Urine Negative (Negative); Leukocyte Esterase Ur Negative LEU/UL (Negative); Nitrate Urine Negative (Negative); Non Pathogenic Casts 0-2; Protein Urine Negative (Negative); RBC Urine 0-2 /hpf (0-2); Squamous Epithelial Cell Urine None seen /hpf (Few); Urobilinogen Urine 0.2 mg/dL (<2.0); WBC Urine 0-5 /hpf
[2022-10-23 12:55] LABS: Add Urine Microscopic? YES
[2022-10-23 12:56] LABS: D Dimer 0.92 ug/mL (<0.48)
[2022-10-23 13:56] LABS: Troponin I < 0.012 ng/mL (0.000-0.034)
[2022-10-23 14:26] VITALS: BP 125/83; PULSE 129; RESP 25; O2SAT 100
[2022-10-23] MEDS: hydrOXYzine HCL 25 MG TABLET PO (15:23)
--- NOTE | 2022-10-23 15:23 | ED.GENADULT ---
HPI - General Adult General Chief complaint: Anxiety Stated complaint: ANXIETY,DIZZY Time Seen by Provider: 10/23/22 11:50 History of Present Illness HPI narrative: Brandy Bravo is a 26 y/o female who presents with reports that she thinks she might of had an anxiety attack/ panic attack today at work but she is not quite sure. She states that she was at work and all of a sudden started to feel shaky/ anxious light headed and though she might pass out. She sat down and her coworkers helped her and sent her here to be evaluated. She reports feeling a little better but feels worried and anxious about being here. She states that she used to be on Zoloft for her anxiety but states it also made her just not care about everything and felt like it changed her so she stpped taking it. Now she practices deep breathing to try to help her anxiety. Related Data Allergies Allergy/AdvReac Type Severity Reaction Status Date / Time cephalexin [From Keflex] AdvReac Intermediate Vomiting Verified 08/25/22 16:01 gluten AdvReac Intermediate Gastrointestinal Verified 08/25/22 16:01 Upset prochlorperazine AdvReac Intermediate Palpitation Verified 08/25/22 16:01 [From Compazine] s chlorpheniramine AdvReac Mild Hives Verified 08/25/22 16:01 [From Donatussin] ciprofloxacin [From Cipro] AdvReac Mild Hives Verified 08/25/22 16:01 dextromethorphan AdvReac Mild Hives Verified 08/25/22 16:01 [From Donatussin] phenylephrine AdvReac Mild Hives Verified 08/25/22 16:01 [From Donatussin] Review of Systems Review of Systems: CONSTITUTIONAL: Denies fever, chills, or sweats. EYES: Denies visual changes, redness, or discharge. ENT: Denies rhinorrhea, congestion, sore throat, or otalgia. CARDIOVASCULAR: reports off and on chest pain, off and on palpitations,no edema. RESPIRATORY: Denies cough or dyspnea. GASTROINTESTINAL: Denies abdominal pain, nausea, vomiting, or diarrhea. GENITOURINARY: Denies dysuria or hematuria. SKIN: Denies rash or itching. MUSCULOSKELETAL: Denies back pain, joint pain, or myalgia. NEUROLOGIC: Denies headache, numbness, dizziness, or weakness. PSYCHIATRIC: Denies anxiety or depression. PMFSH Past Medical History Medical History BMI 22.0-22.9, adult BMI 24.0-24.9, adult BMI 26.0-26.9,adult Celiac disease Hx of psoriatic arthritis Surgical History Surgical History Hx of cholecystectomy Family History Family History Father No problems noted. Mother Depression Thyroid cancer Thyroid disorder Sibling Thyroid disorder COVID-19 Social History Social History Smoking status: Never smoker Second hand tobacco smoke exposure: No Alcohol intake: never Substance use: never Substance use type: does not use Lack of Transportation: No Lack of Food: Never True Current Housing: I Have Housing Concerned About Future Housing: No Difficulty Paying Gas/Electric Bills: No Difficulty Paying for Meds: No Currently Unemployed: No Education: Bachelor's Degree Difficulty w/ Childcare or Family Care: No Living arrangements: with family Occupation/Education: occupation 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 HEAD: Normocephalic, atraumatic. EYES: PERRLA and EOMI. ENT: Nares clear, no rhinorrhea or epistaxis. Mucous membranes moist. Oropharynx without tonsillar hypertrophy exudate or other lesions. NECK: Supple. No adenopathy or masses. No carotid bruits or JVD CHEST: Clear to auscultation. No respiratory distress. No wheezes rales or rhonchi HEART: tachycardic and regular rhythm. No murmur heard. Normal peripheral
[2022-10-23 15:26] VITALS: BP 122/75; PULSE 117; RESP 17; O2SAT 98
[2022-10-23 15:43] VITALS: BP 120/84; PULSE 116; RESP 17; O2SAT 98
== END 2022-10-23 15:44 | disposition home or self-care (01) ==
PROVIDERS: General Practice; Emergency Provider Nurse Practitioner Family; PCP Family Medicine
DX: F41.9 Anxiety disorder, unspecified (principal)
CPT/HCPCS: 36415; 71046; 71275; 80053; 81001; 81025; 83735; 84443; 84484; 85025; 85380; 85610; 85730; 93005; 96360; 96361; 99284; A9270; J7030; Q9967

== ENCOUNTER 2022-11-22 10:01 | Emergency (ER) | payer OTHER, SELFPAY ==
[2022-11-22 10:12] VITALS: BP 132/86; PULSE 106; RESP 16; TEMP 37.3; O2SAT 100
--- NOTE | 2022-11-22 10:15 | ED.FEMALEGU ---
HPI - Female Genitourinary General Chief complaint: Urogenital-Female Stated complaint: UTI SYMPTOMS Time Seen by Provider: 11/22/22 10:15 Source: patient Mode of arrival: ambulatory Limitations: no limitations History of Present Illness HPI Narrative: 26-year-old female presents with complaint of dysuria for 1 week. Reports having lower abdominal cramping and low back aching for the past 2 days. Afebrile. Reports history several urinary tract infections in the spring. States that she saw Urology but no diagnosis such as cystitis or urethritis. Denies . No concern for STI. All systems reviewed and negative except as noted above. Related Data Allergies Allergy/AdvReac Type Severity Reaction Status Date / Time cephalexin [From Keflex] AdvReac Intermediate Vomiting Verified 11/19/22 17:00 gluten AdvReac Intermediate Gastrointestinal Verified 11/19/22 17:00 Upset prochlorperazine AdvReac Intermediate Palpitation Verified 11/19/22 17:00 [From Compazine] s chlorpheniramine AdvReac Mild Hives Verified 11/19/22 17:00 [From Donatussin] ciprofloxacin [From Cipro] AdvReac Mild Hives Verified 11/19/22 17:00 dextromethorphan AdvReac Mild Hives Verified 11/19/22 17:00 [From Donatussin] phenylephrine AdvReac Mild Hives Verified 11/19/22 17:00 [From Donatussin] Review of Systems Review of Systems: CONSTITUTIONAL: Denies fever, chills, or sweats. EYES: Denies visual changes, redness, or discharge. ENT: Denies rhinorrhea, congestion, sore throat, or otalgia. CARDIOVASCULAR: Denies chest pain, palpitations, or edema. RESPIRATORY: Denies cough or dyspnea. GASTROINTESTINAL: Denies abdominal pain, nausea, vomiting, or diarrhea. GENITOURINARY: Reports dysuria. Denies hematuria. SKIN: Denies rash or itching. MUSCULOSKELETAL: Denies back pain, joint pain, or myalgia. NEUROLOGIC: Denies headache, numbness, or weakness. PSYCHIATRIC: Denies anxiety or depression. All other systems reviewed are negative, except as documented in HPI. [facility] Past Medical History Medical History (Updated 11/22/22 @ 10:27 by Chari Riley NP) BMI 22.0-22.9, adult BMI 24.0-24.9, adult BMI 26.0-26.9,adult Celiac disease Eustachian tube dysfunction Hx of psoriatic arthritis Surgical History Surgical History Hx of cholecystectomy Family History Family History Father No problems noted. Mother Depression Thyroid cancer Thyroid disorder Sibling Thyroid disorder COVID-19 Social History Social History Smoking status: Never smoker Second hand tobacco smoke exposure: No Alcohol intake: never Substance use: never Substance use type: does not use Lack of Transportation: No Lack of Food: Never True Current Housing: I Have Housing Concerned About Future Housing: No Difficulty Paying Gas/Electric Bills: No Difficulty Paying for Meds: No Currently Unemployed: No Education: Bachelor's Degree Difficulty w/ Childcare or Family Care: No Living arrangements: with family Occupation/Education: occupation 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 There is no relevant family history pertinent to the presenting complaint. Exam Narrative: GENERAL: This is a well-nourished, well-developed patient, in no apparent distress. HEAD: normocephalic, atraumatic. EYES: PERRL. Sclera clear/white. Vision is grossly intact. EARS: External ears normal NOSE: External nose normal NECK: Neck supple, non-tender without lymphadenopathy, masses or thyromegaly. CARDIOVASCULAR: Regular rate and rhythm without murmurs, gallops, or rubs. RESPIRATORY: Clear to auscul
== END 2022-11-22 10:30 | disposition home or self-care (01) ==
PROVIDERS: Emergency Provider Nurse Practitioner Family; PCP Family Medicine
DX: N39.0 Urinary tract infection, site not specified (principal); K90.0 Celiac disease; L40.50 Arthropathic psoriasis, unspecified
CPT/HCPCS: 81003; 87086; 99213; G0463

== ENCOUNTER 2022-11-29 17:30 | Emergency (ER) | payer OTHER, SELFPAY ==
--- NOTE | ~2022-11-29 | CT_ITS ---
EXAMINATION: CT abdomen pelvis wo con DATE: 11/29/2022 20:13 INDICATION: Left flank pain TECHNIQUE: Computed tomography (CT) of the abdomen and pelvis was performed without intravenous contr ast. The dose-length product (DLP) was 06/13/2022 mGy-cm. Automated exposure control and iterative rec onstruction technique were employed. COMPARISON: 06/13/2022 FINDINGS: The lung bases are clear. The heart size is normal. There is a small sliding hiatal hernia. Changes of cholecystectomy are noted. The liver, spleen, pancreas, and adrenal glands are normal. Th e kidneys are unremarkable. No stones are identified in the kidneys, ureters, or bladder. No hydronep hrosis or hydroureter. A moderate volume of colonic stool is present. An IUD is present in the uterus . No pathologically enlarged abdominal or pelvic lymph nodes are identified. No free intraperitoneal gas or evidence of bowel obstruction. A small fat-containing umbilical hernia is noted. IMPRESSION: 1. No CT correlate for the patient's symptoms. Reviewed, dictated and finalized at location F.
[2022-11-29 17:31] VITALS: BP 129/85; PULSE 114; RESP 14; TEMP 36.4; O2SAT 100
[2022-11-29 19:26] LABS: Appearance Urine Cloudy (Clear); Bacteria Urine None Seen /hpf; Bilirubin Urine Negative (Negative); Color Urine Yellow (Yellow); Glucose Urine UA Negative (Negative); Ketones Urine Negative (Negative); Leukocyte Esterase Ur 3+ LEU/UL (Negative); Nitrate Urine Negative (Negative); Non Pathogenic Casts 0-2; Protein Urine Negative (Negative); RBC Urine 0-2 /hpf (0-2); Specific Grav Ur 1.005 (1.001-1.035); Squamous Epithelial Cell Urine Occasional /hpf (Few); Urobilinogen Urine 0.2 mg/dL (<2.0); WBC Urine 21-50 /hpf
[2022-11-29 19:35] LABS: Add Urine Microscopic? YES
[2022-11-29 20:03] LABS: Pregnancy On Board Control Positive; Urine Pregnancy Test Negative
[2022-11-29 20:04] VITALS: BP 125/86; PULSE 109; RESP 14; O2SAT 100
--- NOTE | 2022-11-29 20:04 | PC.NURSE ---
This RN attempted IV x2, unsuccessful. 2nd RN to try
[2022-11-29 20:05] LABS: Basophils Percent Auto 0.3 % (0.2-1.2); Eosinophils Absolute Auto 0.1 K/mm3 (0-0.3); Eosinophils Percent Auto 0.9 % (0-4.4); Hematocrit 40.2 % (37.0-47.0); Hemoglobin 13.4 g/dL (12.0-15.0); Immature Granulocyte Absolute 0.04 K/mm3 (0.00-0.031); Immature Granulocyte Percent A 0.3 % (0-0.5); Lymphocytes Percent Auto 19.2 % (18.3-44.2); Mean Corpuscular HGB Conc 33.3 g/dl (32-36); Mean Corpuscular Volume 90.1 fl (80-100); Mean Platelet Volume 11.3 fl (7.4-10.4); Monocytes Absolute Auto 0.7 K/mm3 (0.1-0.6); Monocytes Percent Auto 5.4 % (2.6-8.5); Neutrophils Absolute Auto 8.9 K/mm3 (1.3-6.7); Neutrophils Percent Auto 73.9 % (45.5-73.1); Platelet Count Result 286 k/mm3 (150-375); Red Blood Count 4.46 M/mm3 (4.2-5.4); Red Cell Distribution Width 12.3 % (11.5-14.5)
[2022-11-29] MEDS: SODIUM CHLORIDE 0.9% IV 1,000 ML 999 ML IV CONT (20:36)
[2022-11-29 20:42] LABS: Alanine Aminotransferase 21 U/L (6-35); Albumin Level 3.9 g/dL (3.5-5.1); Alkaline Phosphatase 41 U/L (38-126); Anion Gap 7 mmol/L (8-16); Aspartate Amino Transferase 25 U/L (14-36); Bilirubin,Total 0.5 mg/dL (0.2-1.3); Blood Urea Nitrogen 9 mg/dL (7-17); Calcium 7.9 mg/dL (8.4-10.2); Carbon Dioxide 16 mmol/L (22-30); Chloride 113 mmol/L (98-107); Estimated CRCL calculation 115 ml/min; Estimated Glomerular Filt Rate > 60; Glucose 88 mg/dL (65-110); Potassium 3.1 mmol/L (3.4-5.0); Sodium 136 mmol/L (137-145)
[2022-11-29] MEDS: KETOROLAC 30 MG/ML VIAL (*BKC) IV PUSH (21:50)
[2022-11-29] MEDS: POTASSIUM CHLORIDE 20 MEQ ER TABLET 40 MEQ PO (21:52)
[2022-11-29] MEDS: ONDANSETRON INJ 4 MG/2 ML VIAL IV PUSH (21:54)
[2022-11-29] MEDS: ERTAPENEM 1 GM/NS 50 ML 1 GM/50 ML BAG IVPB (21:54)
[2022-11-29 22:11] VITALS: BP 119/80; PULSE 109; RESP 18; O2SAT 98
[2022-11-29] MEDS: POTASSIUM CHLORIDE 20 MEQ PACKET (FOR LIQUID) PO (23:02)
--- NOTE | 2022-11-29 23:04 | ED.FEMALEGU ---
HPI - Female Genitourinary General Chief complaint: Urogenital-Female Stated complaint: left flank Time Seen by Provider: 11/29/22 19:10 Source: patient Mode of arrival: ambulatory Limitations: no limitations History of Present Illness HPI Narrative: 27-year-old female presents today with complaints of left flank pain and dysuria for 2 days. Patient was seen in urgent care last week with complaints of dysuria sent home on Bactrim but told to stop due to urine culture being negative. Patient states her dysuria restarted she saw urology who stated her urine dip was concerning for a possible UTI. She was sent home with azithromycin x1 dose which she took last night. Patient still with dysuria and flank pain. Denies fevers, body aches but does have some nausea. Related Data Allergies Allergy/AdvReac Type Severity Reaction Status Date / Time cephalexin [From Keflex] AdvReac Intermediate Vomiting Verified 11/19/22 17:00 gluten AdvReac Intermediate Gastrointestinal Verified 11/19/22 17:00 Upset prochlorperazine AdvReac Intermediate Palpitation Verified 11/19/22 17:00 [From Compazine] s chlorpheniramine AdvReac Mild Hives Verified 11/19/22 17:00 [From Donatussin] ciprofloxacin [From Cipro] AdvReac Mild Hives Verified 11/19/22 17:00 dextromethorphan AdvReac Mild Hives Verified 11/19/22 17:00 [From Donatussin] phenylephrine AdvReac Mild Hives Verified 11/19/22 17:00 [From Donatussin] Review of Systems Review of Systems: All systems reviewed & are unremarkable except as noted in HPI and below PMFSH Past Medical History Medical History (Updated 11/29/22 @ 22:52 by Sandra Nino APRN) BMI 22.0-22.9, adult BMI 24.0-24.9, adult BMI 26.0-26.9,adult Celiac disease Eustachian tube dysfunction Hx of psoriatic arthritis Surgical History Surgical History Hx of cholecystectomy Family History Family History Father No problems noted. Mother Depression Thyroid cancer Thyroid disorder Sibling Thyroid disorder COVID-19 Social History Social History Smoking status: Never smoker Second hand tobacco smoke exposure: No Alcohol intake: never Substance use: never Substance use type: does not use Lack of Transportation: No Lack of Food: Never True Current Housing: I Have Housing Concerned About Future Housing: No Difficulty Paying Gas/Electric Bills: No Difficulty Paying for Meds: No Currently Unemployed: No Education: Bachelor's Degree Difficulty w/ Childcare or Family Care: No Living arrangements: with family Occupation/Education: occupation 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 Gender identity (if verbalized by the patient): Female Exam Const: General: cooperative, healthy appearing, comfortable, no acute distress and well developed Orientation/consciousness: patient oriented x3 HENMT: Head: normal to inspection Eyes: General: appearance normal, both eyes and all related structures Resp: Effort & Inspection: normal respiratory effort and able to speak in complete sentences Auscultation: clear to auscultation bilaterally Cardio: Rate: regular rate Rhythm: regular rhythm Heart sounds: S1 normal heart sound present and S2 normal heart sound present GI: GI Palp: No abdominal tenderness and Yes Soft to palpation Auscultation: normal bowel sounds : General: Yes CVA tenderness on the left Neuro: General: patient oriented x3 Course Vital Signs Vital signs: Vital Signs Temperature 97.5 F L 11/29/22 17:31 Pulse Rate 114 H 11/29/22 17:31 Respiratory Rate 14 11/29/22 17:31 Blood Pressure 129/85 11/29/22 17:31 Pulse Oximetry 100 11/29/22 17:31 Oxygen Delivery Room Air 11/29/22 17:31 Temperature 97.5 F L 11/29/22 17:31 Pulse Rate 103 H 0
[2022-11-29 23:11] VITALS: BP 109/80; PULSE 99; RESP 16; O2SAT 99
[2022-11-29] MEDS: POTASSIUM CHLORIDE 20 MEQ PACKET (FOR LIQUID) 40 MEQ PO (23:32)
[2022-11-29 23:55] VITALS: BP 106/77; PULSE 91; RESP 16; O2SAT 99
[2022-11-30 00:16] VITALS: BP 105/75; PULSE 103; RESP 18; O2SAT 100
== END 2022-11-30 00:18 | disposition home or self-care (01) ==
PROVIDERS: Physician Assistant; Emergency Provider Nurse Practitioner Family; PCP Family Medicine
DX: N12 Tubulo-interstitial nephritis, not specified as acute or chronic (principal); E87.6 Hypokalemia; K90.0 Celiac disease; L40.50 Arthropathic psoriasis, unspecified; Z90.49 Acquired absence of other specified parts of digestive tract
CPT/HCPCS: 36415; 74176; 80053; 81001; 81025; 85025; 87086; 96361; 96365; 96375; 99284; A9270; J1335; J1885; J2405; J7030

== ENCOUNTER 2022-12-26 17:16 | Outpatient (CLI) | payer OTHER, SELFPAY ==
[2022-12-26 17:54] LABS: Basophils Percent Auto 0.3 % (0.2-1.2); Eosinophils Absolute Auto 0.2 K/mm3 (0-0.3); Eosinophils Percent Auto 1.9 % (0-4.4); Hematocrit 38.9 % (37.0-47.0); Immature Granulocyte Absolute 0.02 K/mm3 (0.00-0.031); Immature Granulocyte Percent A 0.2 % (0-0.5); Lymphocytes Absolute Auto 2.86 K/mm3 (0.9-3.2); Lymphocytes Percent Auto 31.2 % (18.3-44.2); Mean Corpuscular HGB Conc 33.4 g/dl (32-36); Mean Corpuscular Hemoglobin 30.2 pg (26-34); Mean Corpuscular Volume 90.3 fl (80-100); Mean Platelet Volume 11.5 fl (7.4-10.4); Monocytes Absolute Auto 0.7 K/mm3 (0.1-0.6); Monocytes Percent Auto 7.3 % (2.6-8.5); Neutrophils Absolute Auto 5.4 K/mm3 (1.3-6.7); Neutrophils Percent Auto 59.1 % (45.5-73.1); Platelet Count Result 260 k/mm3 (150-375); Red Blood Count 4.31 M/mm3 (4.2-5.4); Red Cell Distribution Width 12.2 % (11.5-14.5); White Blood Count 9.2 K/mm3 (4.5-10.0)
[2022-12-26 18:14] LABS: Anion Gap 11 mmol/L (8-16); Blood Urea Nitrogen 8 mg/dL (7-17); Calcium 9.3 mg/dL (8.4-10.2); Carbon Dioxide 24 mmol/L (22-30); Chloride 104 mmol/L (98-107); Estimated Glomerular Filt Rate > 60; Glucose 90 mg/dL (65-110); Potassium 3.8 mmol/L (3.4-5.0); Sodium 139 mmol/L (137-145)
[2022-12-26 18:41] LABS: Erythrocyte Sedimentation Rate 20 mm/hr (0-20)
[2022-12-29 09:41] LABS: CRP, High Sensitivity 9.1 mg/L (***)
== END 2022-12-26 17:17 | disposition home or self-care (01) ==
LOC: ANHLAB 17:17
PROVIDERS: PCP Family Medicine; Visit Provider Family Medicine
DX: E87.6 Hypokalemia (principal); M25.50 Pain in unspecified joint; E87.1 Hypo-osmolality and hyponatremia; D72.829 Elevated white blood cell count, unspecified; K90.0 Celiac disease
CPT/HCPCS: 36415; 80048; 83735; 85025; 85652; 86141

== ENCOUNTER 2023-01-26 14:53 | Emergency (ER) | payer OTHER, SELFPAY ==
[2023-01-26 15:00] VITALS: BP 139/99; PULSE 135; RESP 22; TEMP 37.5; O2SAT 100
--- NOTE | 2023-01-26 15:18 | ED.GENADULT ---
HPI - General Adult General Chief complaint: Urogenital-Female Stated complaint: Uti symptoms Time Seen by Provider: 01/26/23 15:18 Source: patient, RN notes reviewed and old records reviewed Mode of arrival: ambulatory Limitations: no limitations History of Present Illness HPI narrative: 27-year-old female presents to the [facility] with concerns for UTI. States that when she urinated 1 time it was cloudy. Yesterday reports some left lower back pain. Reports nausea today. Denies any burning with urination. Denies any abdominal pain. Denies fevers Related Data Allergies Allergy/AdvReac Type Severity Reaction Status Date / Time cephalexin [From Keflex] AdvReac Intermediate Vomiting Verified 01/26/23 15:17 gluten AdvReac Intermediate Gastrointestinal Verified 01/26/23 15:17 Upset prochlorperazine AdvReac Intermediate Palpitation Verified 01/26/23 15:17 [From Compazine] s chlorpheniramine AdvReac Mild Hives Verified 01/26/23 15:17 [From Donatussin] ciprofloxacin [From Cipro] AdvReac Mild Hives Verified 01/26/23 15:17 dextromethorphan AdvReac Mild Hives Verified 01/26/23 15:17 [From Donatussin] phenylephrine AdvReac Mild Hives Verified 01/26/23 15:17 [From Donatussin] Review of Systems Review of Systems: All systems reviewed & are unremarkable except as noted in HPI and below Constitutional: Constitutional: Reports no additional constitutional complaints Eyes: Eyes: Reports no additional eye complaints ENT: Reports system reviewed and no additional complaints, except as documented Cardiovascular: Cardiovascular: Reports no additional cardiovascular complaints, Denies chest pain and Denies dyspnea Respiratory: Respiratory: Reports no additional respiratory complaints, Denies chest congestion, Denies cough and Denies dyspnea Gastrointestinal: Gastrointestinal: Reports no additional gastrointestinal complaints, Denies abdominal pain, Denies nausea and Denies vomiting Genitourinary: Genitourinary: Reports as per HPI Musculoskeletal: Musculoskeletal: Reports no additional musculoskeletal complaints Integumentary/Breasts: Skin/Breast: Reports system reviewed and no additional complaints, except as docu Neurologic: Reports system reviewed and no additional complaints, except as documented Psychiatric: Psychiatric: Reports no additional psychiatric complaints Allergic/Immunologic: Allergic/Immunologic: Reports no additional allergic/immunologic complaints PMFSH Past Medical History Medical History Arthralgia BMI 22.0-22.9, adult BMI 24.0-24.9, adult BMI 25.0-25.9,adult BMI 26.0-26.9,adult Celiac disease Eustachian tube dysfunction Hx of psoriatic arthritis Surgical History Surgical History Hx of cholecystectomy Family History Family History Father Hypertension Diabetes mellitus Obesity Mother Depression Thyroid cancer Thyroid disorder Sibling Thyroid disorder COVID-19 Hypertension Social History Social History Smoking status: Never smoker Second hand tobacco smoke exposure: No Alcohol intake: never Substance use: never Substance use type: does not use Lack of Transportation: No Lack of Food: Never True Current Housing: I Have Housing Concerned About Future Housing: No Difficulty Paying Gas/Electric Bills: No Difficulty Paying for Meds: No Currently Unemployed: No Education: Bachelor's Degree Difficulty w/ Childcare or Family Care: No Living arrangements: with family Occupation/Education: occupation 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
== END 2023-01-26 15:26 | disposition home or self-care (01) ==
PROVIDERS: Emergency Provider Nurse Practitioner; PCP Family Medicine
DX: R30.0 Dysuria (principal)
CPT/HCPCS: 81003; 87086; 99213; G0463

== ENCOUNTER 2023-02-15 07:11 | Outpatient (CLI) | payer OTHER, SELFPAY ==
[2023-02-15 08:26] LABS: Cholesterol 154 mg/dL (0-200); HDL Direct 57 mg/dL; Triglycerides 52 mg/dL (<150)
[2023-02-15 08:37] LABS: LDL Cholesterol Direct 70 mg/dL
[2023-02-15 13:55] LABS: Folic Acid 12.8 ng/mL (2.76->20)
[2023-02-18 16:20] LABS: Zinc 73 mcg/dL (60-130)
[2023-02-19 10:26] LABS: Vitamin B6 25.6 ng/mL (2.1-21.7)
[2023-02-19 12:56] LABS: Red Blood Cell Folate 528 ng/mL RBC (>280)
== END 2023-02-15 07:12 | disposition home or self-care (01) ==
LOC: ANHLAB 07:12
PROVIDERS: PCP Family Medicine; Visit Provider Family Medicine
DX: K90.0 Celiac disease (principal); Z13.220 Encounter for screening for lipoid disorders; E55.9 Vitamin D deficiency, unspecified
CPT/HCPCS: 36415; 80061; 82306; 82525; 82607; 82728; 82746; 82747; 84207; 84630

== ENCOUNTER 2023-02-21 09:43 | Emergency (ER) | payer OTHER, SELFPAY ==
[2023-02-21 10:02] VITALS: BP 128/87; PULSE 114; RESP 16; TEMP 36.4; O2SAT 100
--- NOTE | 2023-02-21 10:18 | ED.FEMALEGU ---
HPI - Female Genitourinary General Chief complaint: Urogenital-Female Stated complaint: Female Urogenital Time Seen by Provider: 02/21/23 10:05 Source: patient and RN notes reviewed Mode of arrival: ambulatory Limitations: no limitations History of Present Illness HPI Narrative: Patient presents today complaining of 1-2 week history of urgency, frequency, dysuria after voiding, and lower abdominal cramping sporadically. She also reports chills, nausea, and recent fever up to 100.9. Reports symptoms have worsened over the last 2 days. She has tried increasing her water intake and some home remedies without relief. History of frequent UTIs. States she has had 6 this year so far. She does have a urologist that she follows with. Related Data Allergies Allergy/AdvReac Type Severity Reaction Status Date / Time cephalexin [From Keflex] AdvReac Intermediate Vomiting Verified 02/11/23 16:44 gluten AdvReac Intermediate Gastrointestinal Verified 02/11/23 16:44 Upset prochlorperazine AdvReac Intermediate Palpitation Verified 02/11/23 16:44 [From Compazine] s chlorpheniramine AdvReac Mild Hives Verified 02/11/23 16:44 [From Donatussin] ciprofloxacin [From Cipro] AdvReac Mild Hives Verified 02/11/23 16:44 dextromethorphan AdvReac Mild Hives Verified 02/11/23 16:44 [From Donatussin] phenylephrine AdvReac Mild Hives Verified 02/11/23 16:44 [From Donatussin] Review of Systems Review of Systems: CONSTITUTIONAL: Denies body aches. + fever, chills, sweats EYES: Denies visual changes, redness, or discharge. ENT: Denies rhinorrhea, congestion, sore throat, or otalgia. CARDIOVASCULAR: Denies chest pain, palpitations, or edema. RESPIRATORY: Denies cough or dyspnea. GASTROINTESTINAL: Denies abdominal pain, vomiting, or diarrhea.+ nausea GENITOURINARY:+ urgency, frequency, dysuria, lower abdominal cramping SKIN: Denies rash, itching, or wounds. MUSCULOSKELETAL: Denies back pain, joint pain, or myalgia. NEUROLOGIC: Denies headache, numbness, tingling, or weakness. PSYCH: Denies depression or anxiety. [facility] Past Medical History Medical History Arthralgia BMI 22.0-22.9, adult BMI 24.0-24.9, adult BMI 25.0-25.9,adult BMI 26.0-26.9,adult Celiac disease Eustachian tube dysfunction Hx of psoriatic arthritis Surgical History Surgical History Hx of cholecystectomy Family History Family History Father Hypertension Diabetes mellitus Obesity Mother Depression Thyroid cancer Thyroid disorder Sibling Thyroid disorder COVID-19 Hypertension Social History Social History Smoking status: Never smoker Second hand tobacco smoke exposure: No Alcohol intake: never Substance use: never Substance use type: does not use Lack of Transportation: No Lack of Food: Never True Current Housing: I Have Housing Concerned About Future Housing: No Difficulty Paying Gas/Electric Bills: No Difficulty Paying for Meds: No Currently Unemployed: No Education: Bachelor's Degree Difficulty w/ Childcare or Family Care: No Living arrangements: with family Occupation/Education: occupation 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 Please see nursing chart for further information. There is no relevant family history pertinent to the presenting complaint Exam Narrative: GENERAL: Well-appearing, well-nourished, and in no acute distress. HEAD: Normocephalic, atraumatic. EYES: EOMI. No redness or drainage. Conjunctivae normal. ENT: Mucous membr
== END 2023-02-21 10:30 | disposition home or self-care (01) ==
PROVIDERS: Emergency Provider Nurse Practitioner; PCP Family Medicine
DX: N30.01 Acute cystitis with hematuria (principal); K90.0 Celiac disease; L40.50 Arthropathic psoriasis, unspecified
CPT/HCPCS: 81003; 87086; 99213; G0463

== ENCOUNTER 2023-04-27 09:38 | Emergency (ER) | payer OTHER, SELFPAY ==
[2023-04-27 09:47] VITALS: BP 138/70; PULSE 102; RESP 16; TEMP 36.7; O2SAT 100
--- NOTE | 2023-04-27 10:27 | ED.FEMALEGU ---
HPI - Female Genitourinary General Chief complaint: Urogenital-Female Stated complaint: UTI Time Seen by Provider: 04/27/23 10:19 Source: patient, RN notes reviewed and old records reviewed Mode of arrival: ambulatory Limitations: no limitations History of Present Illness HPI Narrative: Patient presents today with a 2 day history of urinary frequency, dysuria, lower abdominal pressure, and urgency. States she took a home azo urine test that came back positive for leukocytes. Patient is under the care of a urologist and they have suggested that she may have Interstitial Cystitis, but have not yet made a diagnosis. Review of previous urine cultures have all come back negative. Related Data Allergies Allergy/AdvReac Type Severity Reaction Status Date / Time cephalexin [From Keflex] AdvReac Intermediate Vomiting Verified 04/27/23 10:02 gluten AdvReac Intermediate Gastrointestinal Verified 04/27/23 10:02 Upset prochlorperazine AdvReac Intermediate Palpitation Verified 04/27/23 10:02 [From Compazine] s chlorpheniramine AdvReac Mild Hives Verified 04/27/23 10:02 [From Donatussin] ciprofloxacin [From Cipro] AdvReac Mild Hives Verified 04/27/23 10:02 dextromethorphan AdvReac Mild Hives Verified 04/27/23 10:02 [From Donatussin] phenylephrine AdvReac Mild Hives Verified 04/27/23 10:02 [From Donatussin] Review of Systems Review of Systems: CONSTITUTIONAL: Denies body aches, fever, chills, or sweats. EYES: Denies visual changes, redness, or discharge. ENT: Denies rhinorrhea, congestion, sore throat, or otalgia. CARDIOVASCULAR: Denies chest pain, palpitations, or edema. RESPIRATORY: Denies cough or dyspnea. GASTROINTESTINAL: Denies abdominal pain, nausea, vomiting, or diarrhea. GENITOURINARY: + frequency, urgency, dysuria, lower abdominal pressure SKIN: Denies rash, itching, or wounds. MUSCULOSKELETAL: Denies back pain, joint pain, or myalgia. NEUROLOGIC: Denies headache, numbness, tingling, or weakness. PSYCH: Denies depression or anxiety. [facility] Past Medical History Medical History (Reviewed 04/27/23 @ 10:30 by Mand[facility]ccormick, [facility] Arthralgia BMI 22.0-22.9, adult BMI 24.0-24.9, adult BMI 25.0-25.9,adult BMI 26.0-26.9,adult Celiac disease Eustachian tube dysfunction Hx of psoriatic arthritis Low ferritin level Surgical History Surgical History Hx of cholecystectomy Family History Family History Father Hypertension Diabetes mellitus Obesity Mother Depression Thyroid cancer Thyroid disorder Sibling Thyroid disorder COVID-19 Hypertension Social History Social History Smoking status: Never smoker Second hand tobacco smoke exposure: No Alcohol intake: never Substance use: never Substance use type: does not use Lack of Transportation: No Lack of Food: Never True Current Housing: I Have Housing Concerned About Future Housing: No Difficulty Paying Gas/Electric Bills: No Difficulty Paying for Meds: No Currently Unemployed: No Education: Bachelor's Degree Difficulty w/ Childcare or Family Care: No Living arrangements: with family Occupation/Education: occupation 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 Please see nursing chart for further information. There is no relevant family history pertinent to the presenting complaint Exam Narrative: GENERAL: Well-appearing, well-nourished, and in no acute distress. HEAD: Normocephalic, atraumatic. EYES: EOMI. No redness or drainage. Conjunctivae normal. ENT: Mucous membranes pink and moist. NECK:
== END 2023-04-27 10:37 | disposition home or self-care (01) ==
PROVIDERS: Emergency Provider Nurse Practitioner; PCP Family Medicine
DX: R35.0 Frequency of micturition (principal); R30.0 Dysuria; L40.50 Arthropathic psoriasis, unspecified
CPT/HCPCS: 81003; 87086; 87088; 99213; G0463

== ENCOUNTER 2023-07-15 18:04 | Emergency (ER) | payer OTHER, SELFPAY ==
--- NOTE | 2023-07-15 18:09 | ED.FEMALEGU ---
HPI - Female Genitourinary General Chief complaint: Urogenital-Female Stated complaint: Urinary Problems Time Seen by Provider: 07/15/23 18:10 Source: patient Mode of arrival: ambulatory Limitations: no limitations History of Present Illness HPI Narrative: Brandy is a 27-year-old female patient presenting to the clinic today with complaints of possible urinary tract infection. She reports she has been having prickly and tingly sensation and urinary frequency for 1 month. She denies any fever, chills, back pain, vaginal discharge, or abdominal pain Related Data Allergies Allergy/AdvReac Type Severity Reaction Status Date / Time cephalexin [From Keflex] AdvReac Intermediate Vomiting Verified 07/15/23 18:14 gluten AdvReac Intermediate Gastrointestinal Verified 07/15/23 18:14 Upset prochlorperazine AdvReac Intermediate Palpitation Verified 07/15/23 18:14 [From Compazine] s chlorpheniramine AdvReac Mild Hives Verified 07/15/23 18:14 [From Donatussin] ciprofloxacin [From Cipro] AdvReac Mild Hives Verified 07/15/23 18:14 dextromethorphan AdvReac Mild Hives Verified 07/15/23 18:14 [From Donatussin] phenylephrine AdvReac Mild Hives Verified 07/15/23 18:14 [From Donatussin] Review of Systems Review of Systems: Pertinent positives per HPI. Patient denies any fever, chills, rash, headache, visual changes, dizziness, cough, shortness of breath, chest pain, palpitations, nausea, vomiting, diarrhea, constipation, abdominal pain. PMFSH Past Medical History Medical History Arthralgia BMI 22.0-22.9, adult BMI 24.0-24.9, adult BMI 25.0-25.9,adult BMI 26.0-26.9,adult Celiac disease Eustachian tube dysfunction Hx of psoriatic arthritis Low ferritin level Surgical History Surgical History Hx of cholecystectomy Family History Family History Father Hypertension Diabetes mellitus Obesity Mother Depression Thyroid cancer Thyroid disorder Sibling Thyroid disorder COVID-19 Hypertension Social History Social History Smoking status: Never smoker Second hand tobacco smoke exposure: No Alcohol intake: never Substance use: never Substance use type: does not use Lack of Transportation: No Lack of Food: Never True Current Housing: I Have Housing Concerned About Future Housing: No Difficulty Paying Gas/Electric Bills: No Difficulty Paying for Meds: No Currently Unemployed: No Education: Bachelor's Degree Difficulty w/ Childcare or Family Care: No Living arrangements: with family Occupation/Education: occupation 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 There is no relevant family history pertinent to the patient complaint. Exam Narrative: General: Well-developed, well nourished, in no apparent distress. Head: Normocephalic, atraumatic. Cardio: Regular rate and rhythm, s1 and s2 normal, no murmur appreciated. Resp: Clear to auscultation bilaterally, no rhonchi, rales, wheezing or rubs. Abdomen: Soft, pliable, bowel sounds present in all quadrants, mild suprapubic bladder-tender to palpation, no organomegly, no CVAT tenderness. Course Course Emergency Course: Portions of this record may have been created with voice recognition software. Level of Care: Express Care Visit Vital Signs Vital signs: Vital signs reviewed MDM - Female Genitourinary MDM Narrative Medical decision making narrative: At the time of visit patient is resting comfortably on the exam table. Patient appears to be nontoxic. Labs: UA shows a trace o
[2023-07-15 18:14] VITALS: BP 130/88; PULSE 111; RESP 18; TEMP 36.4; O2SAT 100
== END 2023-07-15 18:37 | disposition home or self-care (01) ==
PROVIDERS: Emergency Provider Nurse Practitioner Family; PCP Family Medicine
DX: N30.10 Interstitial cystitis (chronic) without hematuria (principal); K90.0 Celiac disease; L40.50 Arthropathic psoriasis, unspecified
CPT/HCPCS: 81003; 87086; 99213; G0463

== ENCOUNTER 2023-07-26 14:25 | Outpatient (CLI) | payer OTHER, SELFPAY ==
[2023-07-26 15:40] LABS: Hemoglobin 13.6 g/dL (12.0-15.0); Mean Corpuscular HGB Conc 32.4 g/dl (32-36); Mean Corpuscular Hemoglobin 29.5 pg (26-34); Mean Corpuscular Volume 91.1 fl (80-100); Mean Platelet Volume 11.5 fl (7.4-10.4); Platelet Count Result 298 k/mm3 (150-375); Red Blood Count 4.61 M/mm3 (4.2-5.4); Red Cell Distribution Width 12.5 % (11.5-14.5); White Blood Count 9.9 K/mm3 (4.5-10.0)
[2023-07-26 15:56] LABS: Anion Gap 7 mmol/L (4-12); Blood Urea Nitrogen 11 mg/dL (7-17); Calcium 9.6 mg/dL (8.4-10.2); Carbon Dioxide 26 mmol/L (22-30); Chloride 105 mmol/L (98-107); Estimated Glomerular Filt Rate > 60; Glucose 101 mg/dL (65-110); Potassium 3.3 mmol/L (3.4-5.0); Sodium 138 mmol/L (137-145)
[2023-07-26 16:36] LABS: Free T4 Free Thyroxine 1.21 ng/mL (0.78-2.19); Vitamin D 25 Hydroxy 43.8 ng/mL
[2023-07-26 18:11] LABS: Iron 72 ug/dL (37-170); Percent Iron Saturation 22 % (20-50)
== END 2023-07-26 14:26 | disposition home or self-care (01) ==
LOC: ANHLAB 14:26
PROVIDERS: PCP Family Medicine; Visit Provider Nurse Practitioner Family
DX: E87.1 Hypo-osmolality and hyponatremia (principal); E87.6 Hypokalemia; R42 Dizziness and giddiness; R53.83 Other fatigue; D72.829 Elevated white blood cell count, unspecified; R79.0 Abnormal level of blood mineral; F41.9 Anxiety disorder, unspecified
CPT/HCPCS: 36415; 80048; 82306; 82728; 83540; 83550; 84439; 84443; 85027

== ENCOUNTER 2023-08-17 08:53 | Outpatient (CLI) | payer OTHER, SELFPAY ==
--- NOTE | ~2023-08-17 | MR_ITS ---
EXAMINATION: MR brain/brain stem wo con DATE: 08/18/2023 09:20 CDT INDICATION: Chronic migraine headaches TECHNIQUE: Magnetic resonance imaging (MRI) of the brain and brainstem was performed without intraven ous contrast. Sequences included sagittal and axial T1-weighted SE, axial diffusion-weighted FS SE, a xial T2*-weighted GRE, axial T2-weighted FLAIR Propeller, and axial T2-weighted Propeller. Apparent d iffusion coefficient (ADC) maps were created. COMPARISON: CT dated 05/19/2012 FINDINGS: The brain volume and ventricular system are within normal limits. The brain parenchymal si gnal intensity pattern and abrhaam/white matter is normal and there is no evidence of hemorrhage, space occupying masses or infarctions. The flow signal voids of the major arterial structures about the lower elwha of B[place] and within the gosia r dural venous sinuses appear grossly unremarkable and patent. The seventh and eighth cranial nerve complexes are normal. The mid sagittal image demonstrates a normal craniovertebral junction and fela us callosum. The paranasal sinuses are grossly unremarkable. IMPRESSION: 1: Unremarkable MRI of the brain. Reviewed, dictated and finalized at location A.
== END 2023-08-17 08:54 ==
PROVIDERS: PCP Nurse Practitioner Family; Visit Provider Nurse Practitioner Family
DX: G43.809 Other migraine, not intractable, without status migrainosus (principal)
CPT/HCPCS: 70551

== ENCOUNTER 2023-09-07 08:54 | Outpatient (CLI) | payer OTHER, SELFPAY ==
[2023-09-07 09:19] LABS: Hematocrit 40.3 % (37.0-47.0); Hemoglobin 13.2 g/dL (12.0-15.0); Mean Corpuscular HGB Conc 32.8 g/dl (32-36); Mean Corpuscular Hemoglobin 30.1 pg (26-34); Mean Platelet Volume 11.5 fl (7.4-10.4); Platelet Count Result 244 k/mm3 (150-375); Red Blood Count 4.38 M/mm3 (4.2-5.4); Red Cell Distribution Width 12.3 % (11.5-14.5); White Blood Count 7.6 K/mm3 (4.5-10.0)
[2023-09-07 09:25] LABS: Anion Gap 6 mmol/L (4-12); Blood Urea Nitrogen 8 mg/dL (7-17); Calcium 9.3 mg/dL (8.4-10.2); Carbon Dioxide 25 mmol/L (22-30); Chloride 108 mmol/L (98-107); Estimated Glomerular Filt Rate > 60; Glucose 87 mg/dL (65-110); Potassium 3.8 mmol/L (3.4-5.0); Sodium 139 mmol/L (137-145)
== END 2023-09-07 08:55 | disposition home or self-care (01) ==
LOC: ANHLAB 08:57
PROVIDERS: PCP Nurse Practitioner Family; Visit Provider Nurse Practitioner Family
DX: E87.6 Hypokalemia (principal); R79.0 Abnormal level of blood mineral
CPT/HCPCS: 36415; 80048; 82728; 85027

== ENCOUNTER 2023-11-04 16:37 | Emergency (ER) | payer OTHER, SELFPAY ==
[2023-11-04 16:44] VITALS: BP 135/75; PULSE 96; RESP 20; TEMP 36.9; O2SAT 100
--- NOTE | 2023-11-04 17:02 | ED.FEMALEGU ---
HPI - Female Genitourinary General Chief complaint: Urogenital-Female Stated complaint: poss yeast infection Time Seen by Provider: 11/04/23 16:53 Source: patient and RN notes reviewed Mode of arrival: ambulatory Limitations: no limitations History of Present Illness HPI Narrative: Patient presents today complaining of a 3 day history of thick vaginal discharge that has significantly worsened since this morning and now includes external redness and burning with urination. Denies itching or malodor. She believes she has a vaginal yeast infection. She has not tried any [id number] treatment prior to arrival. Patient states she ovulated last week. Related Data Allergies Allergy/AdvReac Type Severity Reaction Status Date / Time cephalexin [From Keflex] AdvReac Intermediate Vomiting Verified 11/04/23 16:40 gluten AdvReac Intermediate Gastrointestinal Verified 11/04/23 16:40 Upset prochlorperazine AdvReac Intermediate Palpitation Verified 11/04/23 16:40 [From Compazine] s chlorpheniramine AdvReac Mild Hives Verified 11/04/23 16:40 [From Donatussin] ciprofloxacin [From Cipro] AdvReac Mild Hives Verified 11/04/23 16:40 dextromethorphan AdvReac Mild Hives Verified 11/04/23 16:40 [From Donatussin] phenylephrine AdvReac Mild Hives Verified 11/04/23 16:40 [From Donatussin] Review of Systems Review of Systems: CONSTITUTIONAL: Denies body aches, fever, chills, or sweats. EYES: Denies visual changes, redness, or discharge. ENT: Denies rhinorrhea, congestion, sore throat, or otalgia. CARDIOVASCULAR: Denies chest pain, palpitations, or edema. RESPIRATORY: Denies cough or dyspnea. GASTROINTESTINAL: Denies abdominal pain, nausea, vomiting, or diarrhea. GENITOURINARY: +vaginal discharge, external redness and burning with urination SKIN: Denies rash, itching, or wounds. MUSCULOSKELETAL: Denies back pain, joint pain, or myalgia. NEUROLOGIC: Denies headache, numbness, tingling, or weakness. PSYCH: Denies depression or anxiety. [facility] Past Medical History Medical History Arthralgia BMI 22.0-22.9, adult BMI 24.0-24.9, adult BMI 25.0-25.9,adult BMI 26.0-26.9,adult Celiac disease Eustachian tube dysfunction Hx of psoriatic arthritis Low ferritin level Surgical History Surgical History Hx of cholecystectomy Family History Family History Father Hypertension Diabetes mellitus Obesity Mother Depression Thyroid cancer Thyroid disorder Sibling Thyroid disorder COVID-19 Hypertension Social History Social History Smoking status: Never smoker Second hand tobacco smoke exposure: No Alcohol intake: never Substance use: never Substance use type: does not use Lack of Transportation: No Lack of Food: Never True Current Housing: I Have Housing Concerned About Future Housing: No Difficulty Paying Gas/Electric Bills: No Difficulty Paying for Meds: No Currently Unemployed: No Education: Bachelor's Degree Difficulty w/ Childcare or Family Care: No Living arrangements: with family Occupation/Education: occupation 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 Please see nursing chart for further information. There is no relevant family history pertinent to the presenting complaint Exam Narrative: GENERAL: Well-appearing, well-nourished, and in no acute distress. HEAD: Normocephalic, atraumatic. EYES: EOMI. No redness or drainage. Conjunctivae normal. ENT: Mucous membranes pink and moist. NECK: Normal AROM. [facility]
== END 2023-11-04 17:02 | disposition home or self-care (01) ==
PROVIDERS: Emergency Provider Nurse Practitioner; PCP Family Medicine
DX: B37.31 Acute candidiasis of vulva and vagina (principal); K90.0 Celiac disease
CPT/HCPCS: 99213; G0463

== ENCOUNTER 2023-11-19 17:02 | Outpatient (CLI) | payer OTHER, SELFPAY ==
[2023-11-19 17:25] LABS: Basophils Percent Auto 0.4 % (0.2-1.2); Eosinophils Absolute Auto 0.2 K/mm3 (0-0.3); Eosinophils Percent Auto 1.9 % (0-4.4); Hematocrit 41.8 % (37.0-47.0); Hemoglobin 13.9 g/dL (12.0-15.0); Immature Granulocyte Absolute 0.03 K/mm3 (0.00-0.031); Immature Granulocyte Percent A 0.3 % (0-0.5); Lymphocytes Absolute Auto 2.71 K/mm3 (0.9-3.2); Lymphocytes Percent Auto 26.9 % (18.3-44.2); Mean Corpuscular HGB Conc 33.3 g/dl (32-36); Mean Corpuscular Hemoglobin 30.4 pg (26-34); Mean Corpuscular Volume 91.5 fl (80-100); Mean Platelet Volume 11.2 fl (7.4-10.4); Monocytes Absolute Auto 0.6 K/mm3 (0.1-0.6); Monocytes Percent Auto 6.4 % (2.6-8.5); Neutrophils Absolute Auto 6.5 K/mm3 (1.3-6.7); Neutrophils Percent Auto 64.1 % (45.5-73.1); Platelet Count Result 268 k/mm3 (150-375); Red Blood Count 4.57 M/mm3 (4.2-5.4); Red Cell Distribution Width 12.2 % (11.5-14.5); White Blood Count 10.1 K/mm3 (4.5-10.0)
[2023-11-19 17:36] LABS: Anion Gap 13 mmol/L (4-12); Blood Urea Nitrogen 13 mg/dL (7-17); Calcium 9.3 mg/dL (8.4-10.2); Carbon Dioxide 24 mmol/L (22-30); Chloride 102 mmol/L (98-107); Estimated Glomerular Filt Rate > 60; Glucose 95 mg/dL (65-110); Potassium 3.6 mmol/L (3.4-5.0); Sodium 139 mmol/L (137-145)
== END 2023-11-19 17:03 | disposition home or self-care (01) ==
LOC: ANHLAB 17:03
PROVIDERS: PCP Family Medicine; Visit Provider Physician Assistant Medical
DX: R42 Dizziness and giddiness (principal); R53.83 Other fatigue; G43.909 Migraine, unspecified, not intractable, without status migrainosus
CPT/HCPCS: 36415; 80048; 84443; 85025

== ENCOUNTER 2023-11-21 10:03 | Emergency (ER) | payer OTHER, SELFPAY ==
[2023-11-21 10:11] VITALS: BP 155/84; PULSE 96; RESP 18; TEMP 36.3; O2SAT 100
--- NOTE | 2023-11-21 10:14 | ED.GENADULT ---
HPI - General Adult General Chief complaint: Urogenital-Female Stated complaint: uti symptoms Time Seen by Provider: 11/21/23 10:14 Source: patient, RN notes reviewed and old records reviewed Mode of arrival: ambulatory Limitations: no limitations History of Present Illness HPI narrative: 27-year-old female to Express Care for complaint of urethral burning with cessation of urination for 2 days. Patient denies Abdominal pain, urinary frequency, fever, itching, vaginal discharge, bowel changes. Patient endorses chronic urinary tract infections last year. States that her last 1 was in November of 2022. Patient states that she does see a urologist with her last appointment being in April. LMP ended 5 days ago. patient reports being treated for a vaginal yeast infection approximately 3 weeks ago. Patient hypertensive in triage, states that she has white coat syndrome . Patient able to tolerate fluids by mouth. Respirations even and nonlabored. Patient in no acute distress. Related Data Allergies Allergy/AdvReac Type Severity Reaction Status Date / Time prochlorperazine Allergy Intermediate Palpitation Verified 11/21/23 10:16 [From Compazine] s chlorpheniramine Allergy Mild Hives Verified 11/21/23 10:16 [From Donatussin] ciprofloxacin [From Cipro] Allergy Mild Hives Verified 11/21/23 10:16 dextromethorphan Allergy Mild Hives Verified 11/21/23 10:16 [From Donatussin] phenylephrine Allergy Mild Hives Verified 11/21/23 10:16 [From Donatussin] cephalexin [From Keflex] AdvReac Intermediate Vomiting Verified 11/21/23 10:16 gluten AdvReac Intermediate Gastrointestinal Verified 11/21/23 10:16 Upset Review of Systems Review of Systems: All systems reviewed & are unremarkable except as noted in HPI and below Constitutional: Constitutional: Reports no additional constitutional complaints Eyes: Eyes: Reports no additional eye complaints ENT: Reports system reviewed and no additional complaints, except as documented Cardiovascular: Cardiovascular: Reports no additional cardiovascular complaints, Denies chest pain and Denies dyspnea Respiratory: Respiratory: Reports no additional respiratory complaints, Denies cough and Denies dyspnea Musculoskeletal: Musculoskeletal: Reports no additional musculoskeletal complaints Neurologic: Reports system reviewed and no additional complaints, except as documented Psychiatric: Psychiatric: Reports no additional psychiatric complaints PMFSH Past Medical History Medical History Arthralgia BMI 22.0-22.9, adult BMI 24.0-24.9, adult BMI 25.0-25.9,adult BMI 26.0-26.9,adult Celiac disease Eustachian tube dysfunction Hx of psoriatic arthritis Low ferritin level Surgical History Surgical History Hx of cholecystectomy Family History Family History Father Hypertension Diabetes mellitus Obesity Mother Depression Thyroid cancer Thyroid disorder Sibling Thyroid disorder COVID-19 Hypertension Social History Social History Smoking status: Never smoker Second hand tobacco smoke exposure: No Alcohol intake: never Substance use: never Substance use type: does not use Lack of Transportation: No Lack of Food: Never True Current Housing: I Have Housing Concerned About Future Housing: No Difficulty Paying Gas/Electric Bills: No Difficulty Paying for Meds: No Currently Unemployed: No Education: Bachelor's Degree Difficulty w/ Childcare or Family Care: No Living arrangements: with family Occupation/Education: occupation 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
[2023-11-21 10:20] LABS: EDUAAPPEAR Clear; EDUABILI Negative; EDUABLOOD Trace; EDUACOLOR1 Yellow; EDUAGLUCOSE Negative; EDUAKETONE Negative; EDUALEUKO Negative; EDUANITRATE Negative; EDUAPROTEIN Negative; EDUAUROBILI 0.2
== END 2023-11-21 10:38 | disposition home or self-care (01) ==
PROVIDERS: Emergency Provider Nurse Practitioner Family; Referring Provider Emergency Medicine
DX: B37.9 Candidiasis, unspecified (principal); K90.0 Celiac disease; L40.50 Arthropathic psoriasis, unspecified
CPT/HCPCS: 81003; 99213; G0463

== ENCOUNTER 2023-11-28 16:45 | Outpatient (CLI) | payer OTHER, SELFPAY ==
[2023-11-28 17:11] LABS: Add Urine Microscopic? YES; Appearance Urine Turbid (Clear); Bacteria Urine 1+ /hpf; Bilirubin Urine Negative (Negative); Blood Urine Negative (Negative); Color Urine Yellow (Yellow); Glucose Urine UA Negative (Negative); Ketones Urine Negative (Negative); Leukocyte Esterase Ur Trace LEU/UL (Negative); Nitrate Urine Negative (Negative); Non Pathogenic Casts 0-2; Protein Urine Negative (Negative); RBC Urine 0-2 /hpf (0-2); Specific Grav Ur 1.016 (1.001-1.035); Squamous Epithelial Cell Urine Few /hpf (Few); Urobilinogen Urine 0.2 mg/dL (<2.0)
== END 2023-11-28 16:46 | disposition home or self-care (01) ==
LOC: ANHLAB 16:47
PROVIDERS: PCP Family Medicine; Visit Provider Nurse Practitioner Family
DX: R39.9 Unspecified symptoms and signs involving the genitourinary system (principal)
CPT/HCPCS: 81001; 87086

== ENCOUNTER 2023-12-05 11:49 | Outpatient (CLI) | payer OTHER, SELFPAY ==
[2023-12-05 12:48] LABS: Basophils Percent Auto 0.3 % (0.2-1.2); Eosinophils Absolute Auto 0.2 K/mm3 (0-0.3); Eosinophils Percent Auto 1.6 % (0-4.4); Hematocrit 41.6 % (37.0-47.0); Hemoglobin 13.8 g/dL (12.0-15.0); Immature Granulocyte Absolute 0.05 K/mm3 (0.00-0.031); Immature Granulocyte Percent A 0.5 % (0-0.5); Lymphocytes Absolute Auto 2.19 K/mm3 (0.9-3.2); Lymphocytes Percent Auto 21.3 % (18.3-44.2); Mean Corpuscular HGB Conc 33.2 g/dl (32-36); Mean Corpuscular Hemoglobin 30.5 pg (26-34); Mean Platelet Volume 11.8 fl (7.4-10.4); Monocytes Absolute Auto 0.7 K/mm3 (0.1-0.6); Neutrophils Absolute Auto 7.1 K/mm3 (1.3-6.7); Neutrophils Percent Auto 69.3 % (45.5-73.1); Platelet Count Result 273 k/mm3 (150-375); Red Blood Count 4.52 M/mm3 (4.2-5.4); Red Cell Distribution Width 12.3 % (11.5-14.5); White Blood Count 10.3 K/mm3 (4.5-10.0)
[2023-12-05 16:56] LABS: Iron 97 ug/dL (37-170); Percent Iron Saturation 31 % (20-50)
== END 2023-12-05 11:50 | disposition home or self-care (01) ==
LOC: ANHLAB 11:51
PROVIDERS: PCP Family Medicine; Visit Provider Physician Assistant Medical
DX: D72.829 Elevated white blood cell count, unspecified (principal); R53.83 Other fatigue; R79.0 Abnormal level of blood mineral
CPT/HCPCS: 36415; 82728; 83540; 83550; 85025

== ENCOUNTER 2024-03-01 08:11 | Emergency (ER) | payer OTHER, SELFPAY ==
--- NOTE | 2024-03-01 08:21 | ED_ITS ---
HPI - URI/Sore Throat General Chief Complaint: Upper Respiratory Infection Stated Complaint: sore throat Time Seen by Provider: 03/01/24 08:22 Source: patient Mode of arrival: ambulatory Limitations: no limitations History of Present Illness HPI Narrative: Brandy is a 28-year-old female patient presenting to the complaints of a sore throat x1 day. She reports her symptoms started yesterday. She denies any known fever but has had some chills. States symptoms started out with a little nasal congestion yesterday and then developed into a really bad sore throat. People at her work been sick but she does not know what type of illness they have had. MD elicited complaint: sore throat, nasal congestion and other (Chills) Related Data Allergies Allergy/AdvReac Type Severity Reaction Status Date / Time cephalexin [From Keflex] AdvReac Intermediate Vomiting Verified 03/01/24 08:19 gluten AdvReac Intermediate Gastrointestinal Verified 03/01/24 08:19 Upset prochlorperazine AdvReac Intermediate Palpitation Verified 03/01/24 08:19 [From Compazine] s chlorpheniramine AdvReac Mild Hives Verified 03/01/24 08:19 [From Donatussin] ciprofloxacin [From Cipro] AdvReac Mild Hives Verified 03/01/24 08:19 dextromethorphan AdvReac Mild Hives Verified 03/01/24 08:19 [From Donatussin] phenylephrine AdvReac Mild Hives Verified 03/01/24 08:19 [From Donatussin] Review of Systems Review of Systems: Pertinent positives per HPI. Patient denies any fever, chills, rash, headache, visual changes, dizziness, cough, shortness of breath, chest pain, palpitations, nausea, vomiting, diarrhea, constipation, abdominal pain, or any urinary issues. [facility] Past Medical History Medical History Arthralgia BMI 22.0-22.9, adult BMI 24.0-24.9, adult BMI 25.0-25.9,adult BMI 26.0-26.9,adult Celiac disease Eustachian tube dysfunction Hx of psoriatic arthritis Low ferritin level Surgical History Surgical History Hx of cholecystectomy Family History Family History Father Hypertension Diabetes mellitus Obesity Mother Depression Thyroid cancer Thyroid disorder Sibling Thyroid disorder COVID-19 Hypertension Social History Social History Smoking status: Never smoker Second hand tobacco smoke exposure: No Alcohol intake: never Substance use: never Substance use type: does not use Do You Feel Safe in your Home?: Yes Lack of Transportation: No Lack of Food: Never True Current Housing: I Have Housing Concerned About Future Housing: No Difficulty Paying Gas/Electric Bills: No Difficulty Paying for Meds: No Currently Unemployed: No Education: Bachelor's Degree Difficulty w/ Childcare or Family Care: No Living arrangements: with family Occupation/Education: occupation 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 There is no relevant family history pertinent to the patient complaint. Exam Narrative: General: Well-developed, well nourished, in no apparent distress Head: Normocephalic, atraumatic Eyes: Pupils equally round and reactive to light bilaterally, EOM intact, sclera and conjunctive clear, no discharge, lids normal Ears: TMs intact and clear, ear canals clear, no drainage, grossly hearing normal. Nose: Nares patent, clear nasal discharge, no inflammation, no sinus tenderness. Mouth: Oral pharynx red with bilateral tonsillar enlargement without lesions or masses, good dentition, MMM. Neck: Supple, trachea midline, enlargement of anterior cervical nodes, no thyroid masses or goiter palpable. Cardio: Regular rate and rhythm, s1 and s2 normal, no murmur appreciated. Resp: Clear to auscultation bilaterally, no rhonchi, rales, wheezing or rubs Course Course Emergency Course: Portions of this record may have been created with voice recognition software. Level of Care: Express Care Visit Vital Signs Vital signs: Vital signs reviewed MDM - URI/Sore Throat MDM Narrative Medical decision making narrative: At the time of visit patient is resting comfortably on the exam table. Patient appears to be nontoxic. Labs: Strep test is positive in the clinic today. Plan: Patient has acute strep pharyngitis. Prescription for amoxicillin was sent to pharmacy. Will also send in prescription for viscous lidocaine. Supportive measures were discussed with the patient and they voiced understanding discharge instructions and agrees to treatment plan. Return precautions reviewed Differential Diagnosis Differential diagnosis: Likely upper respiratory infection, otitis media, sinusitis, viral infection, bronchitis, influenza, pharyngitis and other (COVID) Discharge Plan Discharge Clinical Impression: Acute streptococcal pharyngitis Patient Disposition: Home, Self-Care Condition: Stable Instructions: Antibiotic Form, Strep Throat (ED) Additional Instructions: Take prescription medications only as prescribed-amoxicillin and viscous lidocaine Change your toothbrush in 24 hours after initiation of the antibiotics Increase fluids and stay well hydrated Tylenol/motrin for pain/fever Flonase and OTC antihistamines as directed Vicks vapor rub to open sinuses Sinus rinses for congestion Cepacol spray, cough drops, throat lozenges, warm tea with honey/lemon, gargle salt water to soothe throat BRAT diet for diarrhea Clear liquids x 24 hours then advance as tolerated for nausea/vomiting Go to the ED if you develop a worsening in your condition- high fever not controlled by Tylenol or Motrin, dehydration, weakness, lethargy, shortness of breath, or chest pain. Follow up with your PCP in 3-5 days if symptoms persist. Prescriptions: New amoxicillin 875 mg tablet 875 mg PO Q12H 10 Days Qty: 20 0RF lidocaine HCl [Lidocaine Viscous] 2 % solution 1 applic mucous membrane QID PRN (Reason: pain) 7 Days Qty: 100 1RF No Action buspirone 10 mg tablet 10 mg PO BID Qty: 60 3RF Follow-up/Referrals: Jesus Avila MD [Primary Care Provider] - Stand Alone Forms: Work/School Release IP Time of Disposition: 08:36 Quality NIHSS Nursing Documentation ED NIHSS nursing documentation: reviewed/agree
[2024-03-01 08:29] VITALS: BP 121/92; PULSE 118; RESP 18; TEMP 36.6; O2SAT 100
[2024-03-01 08:34] LABS: EDSTREPNEGPOS1 Positive (Negative)
== END 2024-03-01 08:39 | disposition home or self-care (01) ==
PROVIDERS: Emergency Provider Nurse Practitioner Family; PCP Family Medicine
DX: J02.0 Streptococcal pharyngitis (principal)
CPT/HCPCS: 87880; 99213; G0463

== ENCOUNTER 2024-03-19 16:34 | Emergency (ER) | payer OTHER, SELFPAY ==
--- NOTE | 2024-03-19 16:44 | ED.URI ---
HPI - URI/Sore Throat General Chief Complaint: Upper Respiratory Infection Stated Complaint: Sore throat Time Seen by Provider: 03/19/24 16:44 Source: patient Mode of arrival: ambulatory Limitations: no limitations History of Present Illness HPI Narrative: patient is a 20-year-old female who presents with sore throat started 2 days ago. Patient was diagnosed with strep throat 3 weeks ago. Denies any fever, chills, nausea, vomiting, diarrhea. Related Data Allergies Allergy/AdvReac Type Severity Reaction Status Date / Time cephalexin [From Keflex] AdvReac Intermediate Vomiting Verified 03/01/24 08:19 gluten AdvReac Intermediate Gastrointestinal Verified 03/01/24 08:19 Upset prochlorperazine AdvReac Intermediate Palpitation Verified 03/01/24 08:19 [From Compazine] s chlorpheniramine AdvReac Mild Hives Verified 03/01/24 08:19 [From Donatussin] ciprofloxacin [From Cipro] AdvReac Mild Hives Verified 03/01/24 08:19 dextromethorphan AdvReac Mild Hives Verified 03/01/24 08:19 [From Donatussin] phenylephrine AdvReac Mild Hives Verified 03/01/24 08:19 [From Donatussin] Review of Systems Review of Systems: All systems reviewed & are unremarkable except as noted in HPI and below Constitutional: Constitutional: Denies body ache(s), Denies fever(s), Denies headache(s), Denies malaise and Denies weakness Eyes: Eyes: Denies loss of vision ENT: Denies otalgia, Denies headache(s), Denies nasal congestion, Denies sinus pain and Reports sore throat Cardiovascular: Cardiovascular: Denies chest pain, Denies irregular heart rhythm and Denies dyspnea Respiratory: Respiratory: Denies cough and Denies dyspnea Gastrointestinal: Gastrointestinal: Denies abdominal pain, Denies melena, Denies hematochezia, Denies diarrhea, Denies nausea and Denies vomiting Musculoskeletal: Musculoskeletal: Denies back pain, Denies myalgias and Denies arthralgias Integumentary/Breasts: Skin/Breast: Denies pruritus and Denies rash Neurologic: Denies headache(s), Denies loss of vision and Denies weakness Psychiatric: Psychiatric: Reports no additional psychiatric complaints PMFSH Past Medical History Medical History Arthralgia BMI 22.0-22.9, adult BMI 24.0-24.9, adult BMI 25.0-25.9,adult BMI 26.0-26.9,adult Celiac disease Eustachian tube dysfunction Hx of psoriatic arthritis Low ferritin level Surgical History Surgical History Hx of cholecystectomy Family History Family History Father Hypertension Diabetes mellitus Obesity Mother Depression Thyroid cancer Thyroid disorder Sibling Thyroid disorder COVID-19 Hypertension Social History Social History Smoking status: Never smoker Second hand tobacco smoke exposure: No Alcohol intake: never Substance use: never Substance use type: does not use Do You Feel Safe in your Home?: Yes Lack of Transportation: No Lack of Food: Never True Current Housing: I Have Housing Concerned About Future Housing: No Difficulty Paying Gas/Electric Bills: No Difficulty Paying for Meds: No Currently Unemployed: No Education: Bachelor's Degree Difficulty w/ Childcare or Family Care: No Living arrangements: with family Occupation/Education: occupation 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 There is no relevant family history pertinent to the presenting complaint. Exam Const: General: cooperative, healthy appearing, comfortable, no acute distress and well nourished Nutritional Appearance: well nourished Orientation/consciousness: patient oriented x3 Limitations: no limitations HENMT: Head: normal to inspection, normocephalic and atraumatic Ears: hearing grossly normal bilaterally, external ears normal, TM's normal bilaterally and EAC's normal Face/Nose/Sinus: Normal external nose present, Normal nares present, Normal nasal mucous membranes and turbinates present, Normal septum present, normal facial exam, sinuses nontender and face symmetric Face and sinus: normal facial exam, sinuses nontender and face symmetric Mouth: Yes Normal oral and palatal mucosa present, Yes lip normal and Yes moist mucous membranes Teeth and gingiva: dentition normal Throat: uvula midline, abnormal tonsil bilateral erythema and hypertrophy 3+, posterior oropharynx abnormal erythema and postnasal drainage Eyes: General: appearance normal, both eyes and all related structures Alignment and Position: alignment normal and position normal Periorbital: periorbital findings normal Eyelids: eyelids normal Pupils: Equal, round and reactive pupils present Neck: Neck: normal visual inspection, full ROM, no lymphadenopathy and supple Chest: Chest palpation & inspection: normal inspection of the chest and normal palpation of entire chest wall Resp: Effort & Inspection: normal respiratory effort and able to speak in complete sentences Auscultation: clear to auscultation bilaterally, no crackles, no rales, no rhonchi and no wheezes Cardio: Rate: regular rate Rhythm: regular rhythm Heart sounds: S1 normal heart sound present and S2 normal heart sound present GI: Inspection: normal to inspection Skin: General skin exam: normal color and no rashes or lesions noted Neuro: General: patient oriented x3 and moves all extremities Cranial nerves: Yes Equal, round and reactive pupils present Speech: normal speech Gait exam (Neuro): Normal gait present Extrem: General: normal to inspection, full ROM and no edema Psych: Appearance: grossly normal and well kempt Mental Status: mental status grossly normal Speech and movement: Normal speech and movement present Affect: normal affect Attitude: cooperative Thought process: Normal thought process present Course Course Emergency Course: Patient is aware of diagnosis, understands and agrees to treatment plan. Anticipatory guidance given. Patient agrees to follow-up as directed and is aware of reasons to seek care at the emergency department. Portions of this record may have been created with voice recognition software Level of Care: Express Care Visit Vital Signs Vital signs: Vital Signs Temperature 37.2 C 03/19/24 16:47 Pulse Rate 112 H 03/19/24 16:47 Respiratory Rate 20 03/19/24 16:47 Blood Pressure 125/84 03/19/24 16:47 Pulse Oximetry 100 03/19/24 16:47 Oxygen Delivery Room Air 03/19/24 16:47 Temperature 37.2 C 03/19/24 16:47 Pulse Rate 112 H 03/19/24 16:47 Respiratory Rate 20 03/19/24 16:47 Blood Pressure 125/84 03/19/24 16:47 Pulse Oximetry 100 03/19/24 16:47 Oxygen Delivery Room Air 03/19/24 16:47 Reviewed MDM - URI/Sore Throat MDM Narrative Medical decision making narrative: Patient positive for strep, will treat with antibiotics. Differential diagnosis considered: Sim virus, strep pharyngitis, allergic rhinitis, upper respiratory tract infection, sinusitis, rhinosinusitis, nasopharyngitis. viral pharyngitis, otitis media, otitis externa, pneumonia, bronchitis, viral cough syndrome, viral syndrome, and influenza. Exam findings show no acute concerns or changes; patient is non-toxic appearing and is in no distress. Patient is appropriate for outpatient treatment and follow-up Medical Records Attestation: I reviewed the patient's medical records. Lab Data Attestation: I reviewed the patient's lab results. Labs: Lab Results 03/19/24 Range/Units 17:00 POC Grp A Strep Screen Positive (Negative) Discharge Plan Discharge Clinical Impression: Strep throat Patient Disposition: Home, Self-Care Condition: Stable Instructions: Strep Throat (ED) Additional Instructions: Your rapid strep swab was positive today at [facility]. After 24 hours on antibiotics throw tooth brush away and start using a new one. Wash your sheets and cup/water bottle that is used daily. Do not share drinks. Take Motrin alternating with Tylenol for pain and fever alternating every 4 hours. Increase fluids, avoid caffeine. Other symptomatic treatments include: -Antihistamine medication such as Benadryl at night and Zyrtec/Claritin/Karla during the day can help improve symptoms. -Use Flonase twice a day for 5 days then daily to help reduce the inflammation and dry up your sinuses. -You can also use Sudafed or Mucinex. Be sure to drink plenty of water with these medications at least 8 ounces with every dose and it is important to drink 8 to 10 glasses of water per day. Water is a natural decongestant -Eat and drink things that are easy to swallow, like tea or soup, or popsicles. -Oral rinses such as: Salt water gargles and/or may use topical anesthetic (eg. Chloraseptic spray) or lozenges to relieve dryness or throat pain). -Frequent hand washing or hand safety glass installer is one of the best ways to prevent spread of infection. -Using a vaporizer or humidifier at night will also help thin secretions and help with coughing up phlegm. -Follow up with primary care provider in 3-5 days if condition is not improving - For new or worsening symptoms go directly to the nearest ER Prescriptions: New lidocaine HCl [Lidocaine Viscous] 2 % solution 1 applic mucous membrane TID PRN (Reason: pain) 7 Days Qty: 300 0RF amoxicillin-pot clavulanate 875-125 mg tablet 1 tablet PO Q12H 10 Days Qty: 20 0RF No Action amoxicillin 875 mg tablet 875 mg PO Q12H 10 Days Qty: 20 0RF lidocaine HCl [Lidocaine Viscous] 2 % solution 1 applic mucous membrane QID PRN (Reason: pain) 7 Days Qty: 100 1RF buspirone 10 mg tablet 10 mg PO BID Qty: 60 3RF Follow-up/Referrals: Jesus Avila MD [Primary Care Provider] - 3 Days Stand Alone Forms: Work/School Release IP Time of Disposition: 17:26
[2024-03-19 16:47] VITALS: BP 125/84; PULSE 112; RESP 20; TEMP 37.2; O2SAT 100
[2024-03-19 17:11] LABS: EDSTREPNEGPOS1 Positive (Negative)
== END 2024-03-19 17:32 | disposition home or self-care (01) ==
PROVIDERS: Emergency Provider Nurse Practitioner Family; PCP Family Medicine
DX: J02.0 Streptococcal pharyngitis (principal); K90.0 Celiac disease; L40.50 Arthropathic psoriasis, unspecified
CPT/HCPCS: 87880; 99213; G0463

== ENCOUNTER 2024-04-18 09:14 | Outpatient (CLI) | payer OTHER, SELFPAY ==
[2024-04-21 04:57] LABS: Progesterone 13.3 ng/mL
--- OUTSIDE RECORDS SUMMARY | 2024-04-25 11:10 | XMS_ITS | Encounter Summary ---
Author Organization [facility] Health Address [address] [address] Care Team Providers Care Youth Liaison Officer Name Role Phone Unavailable Primary Care Provider Unavailabl e Reason for Visit * Reason Comments YEAST INFECTION chronic yeast infect ions. Samuel gave her Diflucan 2 weeks ago and s/s have gotten worse since then. Bad itching/burning. Needle like feeling. Brownish discharge. has been dx yeast infection 3 times in last year. will often have the s/s but no infection. Diabetes family hx diabetes. Concerned yeast infections related to diabetes. Encounter Details Date Type Department Care Team (Late st Contact Info) Description 06/14/2015 1:45 PM SKIDDER LEVER OPERATOR Office Visit [facility] - Pediatrics [address] [place] [address] [place] [phone] Angie Sung MD [address] [place] [phone] Subacute vaginitis (Primary Dx) Social History Tobacco Use Types Packs/Day Years Used Date Smoking Tobacco: Never Smokeless Tobacco: Never Alcohol Use Standard Drinks/Week Comments Yes 0 (1 standard drink = 0.6 oz pur e alcohol) Sex and Gender Information Value Date Recorded Sex Assigned at Not on file Gender Identity Not on file Sexual Orientation Not on file documented as of this encounter Last Filed Vital Signs Vital Sign Reading Time Taken Comments Blood Pressure 111/70 06/14/2015 1:35 PM SKIDDER LEVER OPERATOR Pulse 85 06/14/2015 1:35 PM SKIDDER LEVER OPERATOR Temperature - - Respiratory Rate - - Oxygen Saturation - - Inhaled Oxygen Concentration - - Weight 53.2 kg (117 lb 3.2 oz) 06/14/2015 1:35 P M SKIDDER LEVER OPERATOR Height - - Body Mass Index 22.14 12/14/2014 10:58 AM CDT documented in this encounter Progress Notes * Jordyn Wang RN - 06/17/2015 12:59 PM CSTQucrispin Note: Pt aware labs were all normal. Pt is still having a little bit of itching Before bedtime but doing better otherwise. Suggested that if continues or gets worse to see her bat person. Pt voices understanding. DER LEVER OPERATOR * Florinda Vasquez RN - 06/17/2015 12:51 PM Krissy Note: Attempted to reach pt at mobile number. No answer. Message left asking patient to call office. DER LEVER OPERATOR * Angie Sung MD - 06/17/2015 12:39 PM CSTQuick Note: You can let Brandy know that her Hgb A1C was normal. Her vaginal swab was also negative for everything, including yeast. If her sx don't resolve, I would have her give the bat person a call. DER LEVER OPERATOR * Jordyn Wang RN - 06/14/2015 3:33 PM CST POC Blood glucose =85 DER LEVER OPERATOR * Angie Sung MD - 06/14/2015 2:02 PM CST Brandy Gallardo pesents today for complaints of recurrent yeast infections. She has had 3 in the last year, not assciated with abx courses. Her most recent one was 3 weeks ago. She went to [facility] and wasgiven diflucan. She reports that this did not help at all, but it has in the past. Symptoms started2+ weeks ago. Itching? Yes Pain? Yes Redness in vaginal area? No Discharge? Yes, brownish Odor? No Pain with urination? Yes She is concerned about diabetes since everybody in my family has diabetes --both maternal grandparents, she thinks her dad has it but he doesn't go to the doctor. She has aunt and uncle that were diagnosed in early 20s +frequency of urination, +polydipsia. No appetite changes. No weight loss. Accucheck: 85 (had corn dog for lunch) PE: Weight: 53.162 kg (117 lb 3.2 oz) Wt Readings from Last 3 Encounters: 06/14/15 53.162 kg (117 lb 3.2 oz) (29 %*, Z = -0.55) 02/21/15 49.714 kg (109 lb 9.6 oz) (16 %*, Z = -1.01) 12/14/14 48.626 kg (107 lb 3.2 oz) (12 %*, Z = -1.17) * Growth percentiles are based on [facility] 2-20 Years data. Gen: well appearing CV: nL w/o M Resp:CTA Vaginal area: mild irritation, nuswab collected-yellowish,brownish discharge on swab Abdomen: soft, nontender Impression: 1. Vulvovaginits Plan: will send swab for edd, BV, GC+chlamydia, trich Rx: diflucan 150 mg Will tx further depending on swab results. Will also check Hgb A1C DER LEVER OPERATOR documented in this encounter Plan of Treatment Scheduled Orders Name Type Priority Associated Diagnoses Order Schedule GLUCOSE - POINT OF CARE POCT No Acknowledgement Routine Subacute vaginitis Ordered: 06/14/2015 documented as of this encounter Procedures Procedure Name Priority Date/Time Associated Diagnosis Comments HEMOGLOBIN A1C Routine 06/14/2015 2:15 PM SKIDDER LEVER OPERATOR VAGINITIS PLUS (BV CA CT NG TRICH) Routine 06/14/2015 2:05 PM SKIDDER LEVER OPERATOR documented in this encounter Results * HEMOGLOBIN A1C (HgbA1C) (06/14/2015 2:15 PM SKIDDER LEVER OPERATOR) Hemoglobin A1c 5.3 4.8 - 5.6 % [facility] INSURANCE BILL Comment: ? . ? Pre-diabetes: 5.7 - 6.4 ? Diabetes: >6.4 ? Glycemic control for adults with diabetes: <7.0 Whole blood specimen (specimen) BLOOD SPECIMEN WITH EDTA / Unknown 06/14/2015 2:15 PM SKIDDER LEVER OPERATOR 06/14/2015 4:11 PM SKIDDER LEVER OPERATOR Narrative Resulting Agency Comment [facility] [address] ??[facility] [id number] Angie Sung MD LAB - CHEMISTRY LIZZY LEPE [facility] INSURANCE BILL * VAGINITIS PLUS (BV CA CT NG TRICH) (PO REF) (06/14/2015 2:05 PM SKIDDER LEVER OPERATOR) Atopobium vaginae Low - 0 Score [facility] ACCOUNT BILL BVAB 2 Low - 0 Score [facility] ACCOUNT BILL Megashaera Low - 0 Score [facility] ACCOUNT BILL Comment: Calculate total score by adding the 3 individual bacterial vaginosis (BV) marker scores together. Total score is interpreted as follows: ? . Total score 0-1: Indicates the absence of BV. Total score ?? 2: Indeterminate for BV. Additional clinical data should ? be evaluated to establish a diagnosis. Total score 3-6: Indicates the presence of BV. ? . This test was developed and its performance characteristics determined by [facility]. ??It has not been cleared or approved by the Food and Drug Administration. ??The FDA has determined that such clearance or approval is not necessary. Edd albicans PO Negative Negative [facility] ACCOUNT BILL Edd glabrata PO Negative Negative [facility] ACCOUNT BILL Comment: This test was developed and its performance characteristics determined by [facility]. ??It has not been cleared or approved by the Food and Drug Administration. ??The FDA has determined that such clearance or approval is not necessary. Trichomonas vaginalis by PO Negative Negative [facility] ACCOUNT BILL Chlamydia Trachomatis PO Negative Negative [facility] ACCOUNT BILL GC PO Negative Negative [facility] ACCOUNT BILL ENTIRE VAGINA / Unknown 06/14/2015 2:05 PM SKIDDER LEVER OPERATOR 06/14/2015 9:03 PM SKIDDER LEVER OPERATOR Narrative Resulting Agency Comment [facility] [address] ??[facility] [phone] Angie Sung MD LAB - MICROBIOLOGY O RDERABLES [facility] ACCOUNT BILL documented in this encounter Visit Diagnoses Diagnosis Subacute vaginitis- Primary documented in this encounter
--- OUTSIDE RECORDS SUMMARY | 2024-04-25 11:10 | XMS_ITS | Encounter Summary ---
Author Organization [facility] Address [address] [place] [address] Care Team Providers Care Buyer Assistant Name Role Phone Unavailable Primary Care Provider Unavailabl e Reason for Visit * Reason Comments Sore Throat sore throat, migrain e, stiffness upper back and neck. Has had strep 2x in last few months. May have had fever 2 nights ago, Unsure. Did not take temp but felt very cold. +nausea. No uri s/s. Encounter Details Date Type Department Care Team (Late st Contact Info) Description 09/02/2015 1:30 PM CDT Office Visit [facility] - Pediatrics [address] [place] [address] [place] [phone] Rey Valverde DO [address] [place] [address] [phone] Strep pharyngitis (Primary Dx); Stiff neck Social History Tobacco Use Types Packs/Day Years [...] Sign Reading Time Taken Comments Blood Pressure - - Pulse - - Temperature 37.8 ??C (100 ??F) 09/02/2015 1:53 PM CDT Respiratory Rate - - Oxygen Saturation - - Inhaled Oxygen Concentration - - Weight 54.4 kg (120 lb) 09/02/2015 1:25 PM CDT Height - - Body Mass Index 22.67 12/14/2014 10:58 AM CDT documented in this encounter Progress Notes * Rey Valverde, DO - 09/02/2015 1:42 PM CDT Sick Visit Name: Brandy Gallardo Age: 19 y.o. Accompanied By: self CC: Chief Complaint Patient presents with ??? Sore Throat sore throat, migraine, stiffness upper back and neck. Has had strep 2x in last few months. May havehad fever 2 nights ago, Unsure. Did not take temp but felt very cold. +nausea. No uri s/s. HPI: Sore throat for 2-3 days, not eating. Yes. No emesis. Belly pain. GARCIA. Chills for 2-3 days. Drinking okay. Migraine. Stiff back and neck- hard to bend her neck. Voice different. Since neck pain since . Not able to drive due to it. Current Medications: Current Outpatient Prescriptions Medication Sig Dispense Refill ??? sertraline (ZOLOFT) 25 MG tablet Take 1 Tab by mouth once daily 30 Tab 5 ??? topiramate (TOPAMAX) 25 MG tablet Take 1 Tab by mouth 2 times daily 60 Tab 3 ??? Clobetasol Propionate (CLOBEX SPRAY EX) as needed ??? amoxicillin (AMOXIL) 875 MG tablet 0 ??? metroNIDAZOLE vaginal (METROGEL - VAGINAL) 0.75 % vaginal gel ??? nitrofurantoin monohyd macro crystals (MACROBID) 100 MG capsule ??? predniSONE (DELTASONE) 20 MG tablet 0 No current facility-administered medications for this visit. Allergies: Allergies Allergen Reactions ??? Fish Allergy Rash and Swelling Battered fillet ??? Donatussin Urticaria ??? Gluten Meal Abdominal pain, nausea, diarrhea PE: Temp(Src) 100 ??F (Temporal Artery) Wt 54.432 kg (120 lb) General alert, cooperative, no distress Skin Skin color, texture, turgor normal. No rashes or lesions Head NCAT w/o lesions or tenderness Eyes/Ears sclera and conjunctiva clear bilateral TM's and external ear canals normal Nose/ Throat nose:normal, throat: moderate erythema, trismus, no uvular deviation. Tonsillar hypertrophy +2 look symmetrical.Mild exudate. Neck Tender to the touch- grimace, cannot chin to chest. No swelling noted. Back not as tender to the touch. Nodes no lymphadenopathy Heart regular rate and rhythm, S1, S2 normal, no murmur, click, rub or gallop Lungs clear to auscultation bilaterally Impression / Plan: 1. Strep phayngitis- concern for abscess formation due to extreme neck pain and mild trismus. Called Alexey burks at [facility] to explain my concerns and sent her over for further evaluation. 2. Stiff neck- see above. documented in this encounter Plan of Treatment Not on file documented as of this encounter Procedures Procedure Name Priority Date/Time Associated Diagnosis Comments STREP A SCREEN - POINT OF CARE (AMB) Routine 09/02/2015 Strep pharyngitis documented in this encounter Results * (ABNORMAL) STREP A SCREEN - POINT OF CARE (AMB) (09/02/2015) Strep A Rapid POCT Positive(A) Negative Strep A Internal Control Present Other (qualifier value) ENTIRE THROAT (SURFACE REGION OF NECK) / Unknown 09/02/2015 Rey Valverde DO LAB - POINT OF CARE ORDERABLES documented in this encounter Visit Diagnoses Diagnosis Strep pharyngitis- Primary Streptococcal sore throat Stiff neck documented in this encounter
--- OUTSIDE RECORDS SUMMARY | 2024-04-25 11:10 | XMS_ITS | Encounter Summary ---
Author Organization [facility] Address [address] [place] [address] Care Team Providers Care Jackhammer Splitter Operator Name Role Phone Jesus Avila MD Primary Care Provider [phone] Reason for Visit * Reason Comments Establish Care Recurring UTI Encounter Details Date Type Department Care Team (Late st Contact Info) Description 07/05/2022 11:00 AM DISC INSPECTOR Office Visit [facility] [address] [place] [place] [address] Ros Sandoval, BURRING WHEEL OPERATOR-SLAB GRINDER [address] [place] [phone] Urinary tract infection with hematuria, site unspecified (Primary Dx) Social History Tobacco Use Types [...] Sign Reading Time Taken Comments Blood Pressure 127/80 07/05/2022 10:56 AM DISC INSPECTOR Pulse 93 07/05/2022 10:56 AM DISC INSPECTOR Temperature 37 ??C (98.6 ??F) 07/05/2022 10:56 AM DISC INSPECTOR Respiratory Rate 18 07/05/2022 10:56 AM DISC INSPECTOR Oxygen Saturation 100% 07/05/2022 10:56 AM DISC INSPECTOR Inhaled Oxygen Concentration - - Weight 68.9 kg (152 lb) 07/05/2022 10:56 AM DISC INSPECTOR Height 152.4 cm (5') 07/05/2022 10:56 AM DISC INSPECTOR Body Mass Index 29.69 07/05/2022 10:56 AM DISC INSPECTOR documented in this encounter Patient Instructions * Patient Instructions* Ros Sandoval APRN-CNP - 07/05/2022 11:32 AM DISC INSPECTOR -To schedule an appointment please call [phone]. -To reach the [facility] office please call [phone]. -For any nursing or surgery questions please call [phone]. -FAX: Daily macrobid 100 mg Post intercourse macrobid Hiprex 1 GM twice a day with Vit C 500 mg twice a day INSPECTOR documented in this encounter Progress Notes * Ros Sandoval APRN-CNP - 07/05/2022 11:14 AM CST [facility] Division of Urologic Surgery TOM Abdi Date of Visit: 07/05/2022 Patient Name: Brandy Bravo : 1995 Medical Record: [id number] Contact (home) Age: [age] year old Sex: female Referring Physician: No referring provider defined for this encounter. Chief Complaint: Recurrent uti History of Present Illness: The patient is a 26 year old female for complaints of recurrent UTI. Pt has had 2 culture proven uti's over the past year. Cultures have grown out the following organisms: Pt does have urgency/frequency as well. When was first UTI- almost 10 years ago, it started. At the time she started becoming sexually active she had UTI's 2020, 2021, now this infection. Amount of fluid in take daily- 40 oz? What steps are being taken for prevention now- Cait, women;s probiotic Started at the end of April and dipsticks were negative at the urgency and was positive for bacteria. Has been on antibiotics for sinus issues, got BV and yeast infection, [facility] care had her on Bactrim and other antibiotics She feels symptomatic today as well. Treated for BV and yeast infection also recently Past Medical History; Past Medical History: Diagnosis Date ??? Celiac disease 2012 ??? Concussion 2006 while sledding, hit head ??? Psoriasis ??? UTI (urinary tract infection) Past Surgical History: Past Surgical History: Procedure Laterality Date ??? Cholecystectomy ??? Cyst Removal Left 03/11/15 MP joint L hand; ganglion cyst ??? ENDOSCOPY, UPPER 03/19/2013 ENDOSCOPY GI UPPER DIAGNOSTIC ??? NEGATIVE SURGICAL HISTORY Current Medications: Current Outpatient Medications Medication Sig Dispense Refill ??? Citalopram Hydrobromide (CELEXA PO) (Patient not taking: Reported on 07/05/2022) ??? Probiotic Product (probiotic blend) CAPS capsule Take by mouth 2 times daily No current facility-administered medications for this visit. Allergies; Fish allergy, Donatussin, and Gluten meal Family History: Family History Problem Relation Name Age of Onset ??? Asthma Mother ??? Cancer Mother Papillary Thyroid ??? Hypertension Mother ??? Migraine Mother ??? Thyroid Disease Mother ??? Allergies Mother ??? Depression Mother ??? Asthma Maternal Grandfather ??? CAD (Coronary Artery Disease) Maternal Grandfather ??? Heart Failure Maternal Grandfather ??? Depression Maternal Grandfather ??? Diabetes Maternal Grandfather ??? Diabetes Father ??? Thyroid Disease Brother ??? ADHD Brother ??? Thyroid Disease Maternal Grandmother ??? Diabetes Maternal Grandmother ??? Thyroid Disease Other maternal aunt, paternal uncle with Graves Social History: Social History Socioeconomic History ??? Marital status: Spouse name: Not on file ??? Number of children: Not on file ??? Years of education: Not on file ??? Highest education level: Not on file Occupational History ??? Not on file Tobacco Use ??? Smoking status: Never ??? Smokeless tobacco: Never Substance and Sexual Activity ??? Alcohol use: Yes ??? Drug use: Not on file ??? Sexual activity: Not on file Other Topics Concern ??? Not on file Social History Narrative Brandy lives at home with her parents and younger brother. She is in high school Social Determinants of Health Financial Resource Strain: Not on file Food Insecurity: Not on file Transportation Needs: Not on file Stress: Not on file Housing Stability: Not on file Review of Systems: General: Negative Skin: Negative Eyes: Negative Ears/nose/mouth: Negative Lungs:Negative Heart:Negative Gastrointestinal: negative Genitourinary: See HPI Musculoskeletal: Negative Nervous system: Negative Reproductive system: Negative Hematologic: Negative Lymphatic: Negative Endocrine: Negative Physical Exam: Vital Signs: BP 127/80 (BP SITE: LEFT ARM, BP POSITION: SITTING, BP CUFF SIZE: 11) Pulse 93 Temp 98.6 ??F (37 ??C) (Temporal) Resp 18 Ht 1.524 m (5') Wt 68.9 kg (152 lb) SpO2 100% Gen: Alert and oriented x3 Head: normocephalic Lungs: Non-labored respirations Heart: RRR Abd: soft, nontender, nondistended : no CVA tenderness, no suprapubic pain MSK: normal gait and strength Skin: No rashes PVR per bladder scanner: not performed Imaging (images and reports reviewed): 1. No acute inflammatory change, abscess or ascites. 2. No evidence of mechanical bowel obstruction or perforation. 3. No evidence of ureteral stone or hydronephrosis. Referred By: BILLY MENENDEZ Interpreted By: Arthur Rodriguez MD, 11/24/2020 12:37 PM Narrative EXAMINATION: CT Abdomen and Pelvis without contrast EXAM DATE/TIME: 11/24/2020 12:18 PM REASON FOR EXAM: ??recent kidney infection Nausea/vomiting, negative test. ?? COMPARISON: None TECHNIQUE: Computed tomography of the abdomen and pelvis was obtained without administration of intravenous contrast according to routine protocol. Sagittal and coronal reconstruction. ??A dose lowering technique was used for this procedure, which may include, but is not limited to, dose reduction technique, automated exposure control, iterative reconstruction, ALARA (As Low As Reasonably Achievable), or Image Gently techniques. FINDINGS: CT ABDOMEN: Visualized portions of the lung bases demonstrate no acute abnormality. The liver is normal in size. No focal intrahepatic lesions are demonstrated. The gallbladder has been removed. The spleen, pancreas, and the adrenal glands are unremarkable. Kidneys demonstrate no evidence of acute perirenal inflammatory stranding or fluid. There is some mild motion artifact. Small nonobstructing calcifications are noted. No evidence of a ureteral stone nor hydronephrosis on either side. No evidence of focal renal mass lesion. There is no acute inflammatory change, abscess or ascites. No evidence of mechanical bowel obstruction or perforation. No significant lymphadenopathy. Abdominal aorta and IVC are unremarkable. CT PELVIS: There is an IUD in normal position within the uterus. No pelvic mass or adenopathy. No acute??inflammatory change, abscess or ascites. Chronic degenerative disc disease at the lumbosacral junction Laboratory Studies: No results found for this visit on 07/05/22. Microbiology: 06/08/2022- > 100,000- enterococcus faecalis - treated with Augmentin 06/25/2022 25,000- 50,000- Bactrim Pathology: None Diagnosis: Recurrent UTI Recommendations: Recurrent UTIs are defined as 3 documented UTIs within 12 months or 2 documented UTIs within 6 months. We discussed the fact that the majority of recurrent uti's are not due to surgically correctable conditions, but are due to colonization with more virulent bacteria or that the bladder epithelium allows for better bacterial adherence. Discussed dietary prophylaxis with vit c/cranberry. Also discussed possible antibiotic regimens - post coital antibiotics, daily prophylaxis, and self start therapy. R/B of these options explained at length. Finally, also discussed the utility of topical vaginal estrogens in postmenopausal women. Pt does not need further workup to include Advised to increase fluids daily. Plan for follow up: methenamine 1 GM BID, vit C 500 mg BID Vikor sent today. Patient's questions were answered and patient agrees with plan. TOM Abdi 07/05/2022 11:14 AM documented in this encounter Plan of Treatment Not on file documented as of this encounter Visit Diagnoses Diagnosis Urinary tract infection with hematuria, site unspecified- Primary documented in this encounter Care Teams Jackhammer Splitter Operator Relationship Specialty Start Date End Date Jesus Avila MD [address] [place] [address] PCP - General 07/05/22 documented as of this encounter
--- OUTSIDE RECORDS SUMMARY | 2024-04-25 11:10 | XMS_ITS | Referral Summary ---
Author Organization [facility] Address [address] [place] [address] Care Team Providers Care Terrazzo Installer Name Role Phone Jesus Avila MD Primary Care Provider [phone] [facility],non-owned Affiliates and Associated Physician Practices is amultiple site organization consisting of ambulatory clinics and hospital sitesin [place], [place] and [place]. This disclosure is being madepursuant to the Care Everywhere program and may not contain all information available regarding this patient. Last updated 18.[facility] Allergies Active Allergy Reactions Criticality Noted Date Comments Donatussin Urticaria 04/10/2010 Fish Allergy Rash,Swelling Medium 05/15/2012 Battered fillet Gluten Meal 06/14/2015 Abdominal pain, nausea, diarrhea Medications * Be aware that medications may not be up to date on this document. Alwaysverify current medications with the patient. Medication Sig Dispensed Refills Start Date End Date Status Citalopram Hydrobromide (CELEXA PO) Active Probiotic Product (probiotic blend) CAPS capsule Take by mouth 2 times daily Active phenazopyridine (Pyridium) 100 MG tabletIndications:Bl adder Mucosa Irritation Take 1 (one) tablet by mouth 3 times daily as needed for Pain Reasons: Bladder Lining Irritation 15 tablet 1 07/05/2022 Active methenamine hippurate (Hiprex) 1 GM tablet Take 1 (one) tablet by mouth 2 times daily 60 tablet 5 07/05/2022 Active ascorbic acid (Vitamin C) 500 MG tabletIndications:As corbic Acid Deficiency Take 1 (one) tablet by mouth 2 times daily Reasons: Inadequate Vitamin C 60 tablet 11 07/05/2022 Active azithromycin (Zithromax) 500 MG tabletIndications:Ur inary tract infection with hematuria, site unspecified Take both tablets by mouth now 2 tablet 07/09/2022 Active metroNIDAZOLE vaginal (Metrogel - Vaginal) 0.75 % vaginal gel Insert 1 applicator into the vagina at bedtime 70 g 07/09/2022 Active Active Problems Problem Noted Date Diagnosed Date Celiac disease 02/22/2015 GERD without esophagitis 04/11/2010 Psoriasis 04/11/2010 Migraine 04/11/2010 Immunizations Name Administration Dates Next Due INFLUENZA VACCINE, TRIV. (AF LURIA, FLUZONE TRIVALENT; 6MO+) (IIV3) 04/10/2010 DTaP VACCINE IM (6wk-6yrs) 11/22/2000,,06/03/1996,1995,01/14/1996 HEP A PEDS 2 DOSE 03/04/2006,07/17/2005 HEP B VACCINE, PED/ADOL 06/03/1996,01/14/1996, HIB BOOSTER 06/02/1997, 7,03/17/1996,1995 Human Papilloma Virus Quiana valent Vaccine 10/13/2010,06/13/2010,04/10/2010 INFLUENZA 02/19/2009, 8,02/14/2008,2006 MENINGOCOCAL MENINGITIS 11/25/2007 MMR 11/22/2000,03/23/1997 POLIO IPV 11/22/2000, 8,03/17/1996,1995 TDAP (7yrs+) 10/31/2006 VARICELLA 10/31/2006,03/23/1997 Social History Tobacco Use Types Packs/Day Years Used Date Smoking Tobacco: Never Smokeless Tobacco: Never Alcohol Use Standard Drinks/Week Comments Yes 0 (1 standard drink = 0.6 oz pur e alcohol) Sex and Gender Information Value Date Recorded Sex Assigned at Not on file Gender Identity Not on file Sexual Orientation Not on file Last Filed Vital Signs Vital Sign Reading Time Taken Comments Blood Pressure 127/80 07/05/2022 10:56 AM PROVER Pulse 93 07/05/2022 10:56 AM PROVER Temperature 37 ??C (98.6 ??F) 07/05/2022 10:56 AM PROVER Respiratory Rate 18 07/05/2022 10:56 AM PROVER Oxygen Saturation 100% 07/05/2022 10:56 AM PROVER Inhaled Oxygen Concentration - - Weight 68.9 kg (152 lb) 07/05/2022 10:56 AM PROVER Height 152.4 cm (5') 07/05/2022 10:56 AM PROVER Body Mass Index 29.69 07/05/2022 10:56 AM PROVER Plan of Treatment Not on file Administered Medications Care Teams Terrazzo Installer Relationship Specialty Start Date End Date Jesus Avila MD [address] [place] [address] PCP - General 07/05/22
--- OUTSIDE RECORDS SUMMARY | 2024-04-25 11:10 | XMS_ITS | Encounter Summary ---
Author Organization [facility] Address [address] [place] [address] Care Team Providers Care Branch Customer Service Representative Name Role Phone Unavailable Primary Care Provider Unavailabl e Reason for Visit * Reason Comments Complete Physical Exam 19 y/o well check Encounter Details Date Type Department Care Team (Late st Contact Info) Description 10/28/2015 2:20 PM CDT Office Visit [facility] - Pediatrics [address] [place] [phone] Rey Valverde DO [address] [place] [phone] Encounter for routine history and physical examination of adult (Primary Dx); Dysuria Social History Tobacco Use Types Packs/Day Years [...] Sign Reading Time Taken Comments Blood Pressure 106/68 10/28/2015 2:39 PM CDT Pulse 64 10/28/2015 2:39 PM CDT Temperature 36.9 ??C (98.5 ??F) 10/28/2015 2:39 PM CD T Respiratory Rate - - Oxygen Saturation - - Inhaled Oxygen Concentration - - Weight 54 kg (119 lb) 10/28/2015 2:39 PM CDT Height 154.9 cm (5' 1 ) 10/28/2015 2:39 PM CDT Body Mass Index 22.48 10/28/2015 2:39 PM CDT documented in this encounter Progress Notes * Jordyn Wang RN - 11/07/2015 11:06 AM CDT Brandy returned call. Her s/s have gone away. Requested she call if s/s continue to occur intermittently. Will need to refer to urology. Pt voices understanding. * Jordyn Wang RN - 11/02/2015 11:18 AM CDTQuick Note: Left messages at both home and cell number to call office for results. * Rey Valverde DO - 11/01/2015 4:43 PM CDTQucrispin Note: Called and left a message for Brandy to tell her not really enough bacteria to call it a bladder infection. Not sure if feeling better? Probably try to refer to adult urology if she wants for recurrentinfections. * Rey Valverde DO - 10/28/2015 2:49 PM CDT S[facility]OL [facility] //////////////////////////////////////////////////////////////////////////////// ////////////////////////////////////////// Reviewed Nurse's school age note DO Note: Phx: recurrent bladder infections, migraines, depression. Medications: topamax , zoloft Exercise/Sports: no School: Grade:jr in college in the fall Grades: fine. [employer] Car safety: Seat Belt, no texting ROS: Stomachaches: No Headaches: Migraines once a week cannot function. No affect by mirena, take some Excedrin. Good habits help- sleep, food and water. Has been on topamax 75mg BID for years. Does help Constipation/Diarrhea: No Girls: Menarche no Dysuria and frequency this am. Was treated about 2 weeks prior by fire extinguisher inspector with macrobid. Better but symptoms now back again. Has been getting them almost monthly since her mirena implant when these started. String always in a good place per fire extinguisher inspector. Sees fire extinguisher inspector but still getting a lot of UTI. Frequent for thepast 2 years. Always voids after sex. But onset is often not associated with sexual encounters. No fevers. Sleeping okay. Taking azo which helps. Physical Exam: Wt Readings from Last 3 Encounters: 10/28/15 53.978 kg (119 lb) (32 %*, Z = -0.48) 09/02/15 54.432 kg (120 lb) (34 %*, Z = -0.41) 06/14/15 53.162 kg (117 lb 3.2 oz) (29 %*, Z = -0.55) * Growth percentiles are based on CDC 2-20 Years data. Ht Readings from Last 3 Encounters: 10/28/15 1.549 m (5' 1 ) (10 %*, Z = -1.29) 12/14/14 1.549 m (5' 1 ) (10 %*, Z = -1.28) 12/02/14 1.549 m (5' 1 ) (10 %*, Z = -1.28) * Growth percentiles are based on CDC 2-20 Years data. Blood pressure percentiles are 50% systolic and 73% diastolic based on 2000 NHANES data. 32%ile (Z=-0.48) based on CDC 2-20 Years [id number] data using vitals from 10/28/2015. 10%ile (Z=-1.29) based on CDC 2-20 Years [id number] data using vitals from 10/28/2015. BP 106/68 mmHg Pulse 64 Temp(Src) 98.5 ??F (Temporal Artery) Wt 53.978 kg (119 lb) BMI 22.50 kg/m2 GENERAL: Alert, NAD EYES: PERRLA, EOMI, red reflex bilaterally EARS: TM's wnl NOSE: nasal passages clear NECK: supple, no masses, no lymphadenopathy RESP: clear to auscultation bilaterally CV: RRR, normal S1/S2, no murmurs, clicks, or rubs. ABD: soft, nontender, no masses, no hepatosplenomegaly, normal bowel sounds : normal female exam EXTREMITIES: Full range of motion of all extremities SPINE: Straight SKIN: no rashes or lesions Impression: Well child with normal growth and development. Plan: Anticipatory guidance discussed included nutrition, safety, dentist, limiting media, exercise. Vaccines: did not want 2nd MCV when offered. BMI> 85%: No Classification of weight: healthy Follow up yearly. * Florinda Vasquez RN - 10/28/2015 2:40 PM CDT Brandy Gallardo is a 19 y.o. female presents to office today by self for annual well check. Concerns: Completed antibiotic for UTI about a week ago. This ordered by Dr Garcia her PHOTOGRAMMETRIC STEREO COMPILER. Pt says that she developed burning with urination and frequency again this am. Started period x3 days ago. documented in this encounter Plan of Treatment Not on file documented as of this encounter Procedures Procedure Name Priority Date/Time Associated Diagnosis Comments CULTURE URINE Routine 10/28/2015 3:22 PM CDT Dysuria documented in this encounter Results * (ABNORMAL) CULTURE URINE (10/28/2015 3:22 PM CDT) Urine Culture Routine Final report(A) [facility] ACCOUNT BILL Result 1 (A) [facility] ACCOUNT BILL Comment: Beta hemolytic Streptococcus, group B 10,000-25,000 colony forming units per mL Penicillin and ampicillin are drugs of choice for treatment of beta-hemolytic streptococcal infections. Susceptibility testing of penicillins and other beta-lactam agents approved by the FDA for treatment of beta-hemolytic streptococcal infections need not be performed routinely because nonsusceptible isolates are extremely rare in any beta-hemolytic streptococcus and have not been reported for Streptococcus pyogenes (group A). (CLSI 2011) Urine specimen (specimen) URINE SPECIMEN FROM URINARY BLADDER / Unknown 10/28/2015 3:22 PM CDT 10/28/2015 9:22 PM CDT Narrative Resulting Agency Comment [facility] [place] [address] [facility] [address] [facility] ??[facility] [id number] Rey Valverde DO LAB - MICROBIOL OGTrell ORDERABLES [facility] ACCOUNT BILL [address] [place] [address] documented in this encounter Visit Diagnoses Diagnosis Encounter for routine history and physical examination of adult- Primary Dysuria documented in this encounter
--- OUTSIDE RECORDS SUMMARY | 2024-04-25 11:10 | XMS_ITS | Encounter Summary ---
Author Organization [facility] Address [address] [place] [address] Care Team Providers Care Arterial Embalmer Name Role Phone Unavailable Primary Care Provider Unavailabl e Reason for Visit * Reason Comments Follow-up medication Encounter Details Date Type Department Care Team (Late st Contact Info) Description 12/02/2014 1:15 PM CDT Office Visit [facility] - Pediatric[facility] [address] [place] [phone] Angie Sung MD [address] [place] [phone] Depression (Primary Dx); Migraine without status migrainosus, not intractable, unspecified migraine type; Encounter for long-term (current) use of other medications Social History Tobacco Use Types Packs/Day Years [...] Sign Reading Time Taken Comments Blood Pressure 106/60 12/02/2014 1:22 PM CDT Pulse 64 12/02/2014 1:22 PM CDT Temperature - - Respiratory Rate - - Oxygen Saturation - - Inhaled Oxygen Concentration - - Weight 48.4 kg (106 lb 12.8 oz) 12/02/2014 1:22 PM CDT Height 154.9 cm (5' 1 ) 12/02/2014 1:22 PM CDT Body Mass Index 20.18 12/02/2014 1:22 PM CDT documented in this encounter Progress Notes * Angie Sung MD - 12/02/2014 1:50 PM CDT Brandy is a 19 y/o female here for follow up of medications for depression and migraines. She takes zoloft 25 mg daily for depression sx. She reports that she is doing well on this dose. She reports that occasionally, when things pile up on her (feeling stressed), she feels like it isn't working. Most of the time, feels that it is working well. Her mood is good. She has good energy, no sleeping difficulties. 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 She reports that things had been going well with topamax 50mg BID for headaches until the past month. She reports that in the past month, she is having about 4 migraines per week. They are her typical migraines, with pounding head, feels like she just wants to sleep. Some times feels nausea, no light or sound sensativity. She has not vomited. In the past week, she has been waken in AM with headache. She takes ibuprofen or tylenol for her break through headaches. She had a head CT in 2012 which was normal. I asked her about her joint pains which we discussed at previous visit. She reports that she is having the pain much less frequently than before. She never did get into Rheumatology. Reports that theRheum they found is booked far in advance and could never get appt that coordinated well with her schedule. PE: Vitals: 12/02/14 1322 BP: 106/60 Pulse: 64 Weight: 48.444 kg (106 lb 12.8 oz) (+2lbs since apr) Gen-well appearing. HEENT: throat clear. Neck: supple Resp:CTA CV: nL S1S2 w/o M Neuro: CN intact, nL rapid alt movements and rhomberg neg Impression: follow up 1. Depression, doing well 2. Migraines Plan: 1. Continue on present dosage 6 months refill 2. Increase topamax to 75 mg BID Advised to call in 1-2 weeks if not help ing with GARCIA's -would refer to neurology * Florinda Vasquez RN - 12/02/2014 1:23 PM CDT Brandy Gallardo is a 19 y.o. female presents today with sibling for f/u of medication. documented in this encounter Plan of Treatment Not on file documented as of this encounter Visit Diagnoses Diagnosis Depression- Primary Depressive disorder, not elsewhere classified Migraine without status migrainosus, not intractable, unspecified migraine type Encounter for long-term (current) use of other medications documented in this encounter
--- OUTSIDE RECORDS SUMMARY | 2024-04-25 11:10 | XMS_ITS | Encounter Summary ---
Author Organization [facility] Address [address] [place] [address] Care Team Providers Care Women'S Lacrosse Coach Name Role Phone Unavailable Primary Care Provider Unavailabl e Reason for Visit * Reason Comments PPD Skin Test Placement Encounter Details Date Type Department Care Team (Late st Contact Info) Description 09/18/2018 2:00 PM CDT Office Visit [facility] [address] [phone] Provider, Arun Cat Goode PPD screening test (Primary Dx) Social History Tobacco Use Types Packs/Day Years Used Date Smoking Tobacco: Never Smokeless Tobacco: Never Alcohol Use Standard Drinks/Week Comments Yes 0 (1 standard drink = 0.6 oz pur e alcohol) Sex and Gender Information Value Date Recorded Sex Assigned at Not on file Gender Identity Not on file Sexual Orientation Not on file documented as of this encounter Progress Notes * Janelle Calderon APRN-CNP - 09/18/2018 2:02 PM CDT PPD Placement note Brandy Bravo, 22 year old female is here today for placement of PPD test Reason for PPD test: school Pt taken PPD test before: yes Verified in allergy area and with patient that they are not allergic to the products PPD is made of(Phenol or Tween). Yes Is patient taking any oral or IV steroid medication now or have they taken it in the last month? no Has the patient ever received the BCG vaccine?: no Has the patient been in recent contact with anyone known or suspected of having active TB disease?:no Date of exposure (if applicable): na Name of person they were exposed to (if applicable): na Patient's Country of origin?: [place] O: Alert and oriented in NAD. P: PPD placed on 09/18/2018. Patient advised to return for reading within 48-72 hours. documented in this encounter Plan of Treatment Not on file documented as of this encounter Procedures Procedure Name Priority Date/Time Associated Diagnosis Comments SKIN TEST PPD - POINT OF CARE Routine 09/20/2018 PPD screening test documented in this encounter Results * SKIN TEST PPD - POINT OF CARE (09/20/2018) PPD 0mm Comment:negative Other MISCELLANEOUS SAMPLE S / Unknown 09/20/2018 [facility] - POINT OF CA RE ORDERABLES documented in this encounter Visit Diagnoses Diagnosis PPD screening test- Primary Screening examination for pulmonary tuberculosis documented in this encounter Administered Medications Administered Medications Medication Order MAR Action Action Date Dose Rate Site PPD Intradermal Given 09/18/2018 0.1 mL Left Forearm documented in this encounter
--- OUTSIDE RECORDS SUMMARY | 2024-04-25 11:10 | XMS_ITS | Patient Health Summary ---
Author Organization [facility] Address [address] [place] [address] Care Team Providers Care Scoop Operator Name Role Phone Jeuss Avila MD Primary Care Provider [phone] Note from [facility],non-owned Affiliates and Associated Physician Practices is amultiple site organization consisting of ambulatory clinics and hospital sitesin [place], [place], [place] and [place]. This disclosure is being madepursuant to the Care Everywhere program and may not contain all information available regarding this patient. Last updated 18.[facility] Allergies * Donatussin(Urticaria) * Fish Allergy(Rash,Swelling) -Medium Criticality * Gluten Meal(Abdominal pain, nausea, diarrhea) Medications * Be aware that medications may not be up to date on this document. Alwaysverify current medications with the patient. * Citalopram Hydrobromide (CELEXA PO) * Probiotic Product (probiotic blend) CAPS capsule Take by mouth 2 times daily * phenazopyridine (Pyridium) 100 MG tablet(Started 07/05/2022) Take 1 (one) tablet by mouth 3 times daily as needed for Pain Reasons: Bladder Lining Irritation 1 refill by 07/05/2023 * methenamine hippurate (Hiprex) 1 GM tablet(Started 07/05/2022) Take 1 (one) tablet by mouth 2 times daily 5 refills by 07/05/2023 * ascorbic acid (Vitamin C) 500 MG tablet(Started 07/05/2022) Take 1 (one) tablet by mouth 2 times daily Reasons: Inadequate Vitamin C 11 refills by 07/05/2023 * azithromycin (Zithromax) 500 MG tablet(Started 07/09/2022) Take both tablets by mouth now * metroNIDAZOLE vaginal (Metrogel - Vaginal) 0.75 % vaginal gel(Started 07/09/2022) Insert 1 applicator into the vagina at bedtime Active Problems Problem Noted Date Diagnosed Date Celiac disease 02/22/2015 GERD without esophagitis 04/11/2010 Psoriasis 04/11/2010 Migraine 04/11/2010 Immunizations * INFLUENZA VACCINE, TRIV. (AFLURIA, FLUZONE TRIVALENT; 6MO+) (IIV3)(Given 04/10/2010) * DTaP VACCINE IM (6wk-6yrs)(Given 11/22/2000, 06/02/1997, 06/03/1996, 03/17/1996, 01/14/1996) * HEP A PEDS 2 DOSE(Given 03/04/2006, 07/17/2005) * HEP B VACCINE, PED/ADOL(Given 06/03/1996, 01/14/1996, 1995) * HIB BOOSTER(Given 06/02/1997, 06/03/1996, 03/17/1996, 01/14/1996) * Human Papilloma Virus Quadrivalent Vaccine(Given 10/13/2010, 06/13/2010, 04/10/2010) * INFLUENZA(Given 02/19/2009, 02/28/2008, 02/14/2008, 03/01/2007) * MENINGOCOCAL MENINGITIS(Given 11/25/2007) * MMR(Given 11/22/2000, 03/23/1997) * POLIO IPV(Given 11/22/2000, 06/02/1997, 03/17/1996, 01/14/1996) * TDAP (7yrs+)(Given 10/31/2006) * VARICELLA(Given 10/31/2006, 03/23/1997) Social History Tobacco Use Types Packs/Day Years [...] Comments Blood Pressure 127/80 07/05/2022 10:56 AM GREENSMAN Pulse 93 07/05/2022 10:56 AM GREENSMAN Temperature 37 ??C (98.6 ??F) 07/05/2022 10:56 AM GREENSMAN Respiratory Rate 18 07/05/2022 10:56 AM GREENSMAN Oxygen Saturation 100% 07/05/2022 10:56 AM GREENSMAN Inhaled Oxygen Concentration - - Weight 68.9 kg (152 lb) 07/05/2022 10:56 AM GREENSMAN Height 152.4 cm (5') 07/05/2022 10:56 AM GREENSMAN Body Mass Index 29.69 07/05/2022 10:56 AM GREENSMAN Procedures * PATHOLOGY/CYTOLOGY REPORT ORDER(Performed 07/05/2022) * SKIN TEST PPD - POINT OF CARE(Performed 09/27/2018) Performed for Screening for tuberculosis * SKIN TEST PPD - POINT OF CARE(Performed 09/20/2018) Performed for PPD screening test * CULTURE URINE(Performed 12/07/2016) Performed for Acute cystitis without hematuria * URINALYSIS - POINT OF CARE(Performed 12/07/2016) Performed for Acute cystitis without hematuria * URINALYSIS - POINT OF CARE(Performed 01/16/2016) Performed for Recurrent UTI * CULTURE URINE(Performed 01/16/2016) Performed for Recurrent UTI * CULTURE URINE(Performed 10/28/2015) Performed for Dysuria * STREP A SCREEN - POINT OF CARE (AMB)(Performed 09/02/2015) Performed for Strep pharyngitis * XR HAND BILAT 2VW(Performed 06/21/2015) Performed for Polyarthralgia * XR KNEE BILAT 2VW OR LESS(Performed 06/21/2015) Performed for Polyarthralgia * HEMOGLOBIN A1C(Performed 06/14/2015) * VAGINITIS PLUS (BV CA CT NG TRICH)(Performed 06/14/2015) * CULTURE URINE(Performed 02/21/2015) Performed for Urinary tract infection with hematuria, site unspecified * URINALYSIS - POINT OF CARE(Performed 02/21/2015) Performed for Urinary tract infection with hematuria, site unspecified * XR KNEE RIGHT 4VW OR MORE(Performed 12/10/2014) * CULTURE STREP GROUP A(Performed 02/18/2014) * PATHOLOGY/CYTOLOGY REPORT ORDER(Performed 03/23/2013) * ENDOSCOPY GI UPPER DIAGNOSTIC(Performed 03/19/2013) Performed for Other And Unspecified Nonspecific Immunological Findings * TISSUE TRANSGLUTAMINASE AB IGA(Performed 03/19/2013) Performed for Abnormal celiac antibody panel * IGA BLOOD(Performed 03/19/2013) Performed for Abnormal celiac antibody panel * VITAMIN D 25-HYDROXY(Performed 03/19/2013) Performed for Abnormal celiac antibody panel * HELICOBACTER PYLORI UREASE(Performed 03/19/2013) Performed for Abnormal celiac antibody panel, GERD without esophagitis * PATHOLOGY TISSUE EXAM (STL)(Performed 03/19/2013) Performed for Abnormal celiac antibody panel, GERD without esophagitis * EGD(Performed 03/19/2013) Performed for Abnormal celiac antibody panel * HCG URINE QUALITATIVE - POCT (IP) BEAKER(Performed 03/19/2013) * XR CHEST 2VW(Performed 03/04/2013) Performed for Chest pain * MONONUCLEOSIS SCREEN(Performed 03/04/2013) * COMPREHENSIVE METABOLIC PANEL(Performed 03/04/2013) * CBC W AUTO DIFFERENTIAL(Performed 03/04/2013) * DIFFERENTIAL MANUAL(Performed 03/04/2013) * URINALYSIS - POINT OF CARE(Performed 03/04/2013) Performed for Dehydration * URINALYSIS - POINT OF CARE(Performed 01/28/2013) Performed for Dysuria * LIPASE BLOOD(Performed 12/24/2012) Performed for Weight loss * AMYLASE BLOOD(Performed 12/24/2012) Performed for Weight loss * CELIAC DISEASE COMPREHENSIVE(Performed 12/24/2012) Performed for Weight loss * COMPREHENSIVE METABOLIC PANEL(Performed 12/24/2012) Performed for Weight loss * C-REACTIVE PROTEIN(Performed 12/24/2012) Performed for Weight loss * ERYTHROCYTE SEDIMENTATION RATE(Performed 12/24/2012) Performed for Weight loss * T4 FREE(Performed 12/22/2012) Performed for Weight loss * TSH(Performed 12/22/2012) Performed for Weight loss * URINALYSIS - POINT OF CARE(Performed 09/11/2012) Performed for Hematuria * CALCIUM/CREAT RATIO URINE RANDOM PANEL(Performed 08/29/2012) Performed for Hematuria, microscopic * CULTURE URINE(Performed 08/29/2012) Performed for Hematuria, microscopic * URINALYSIS - POINT OF CARE(Performed 08/29/2012) Performed for Abdominal Pain, Unspecified Site * ERYTHROCYTE SEDIMENTATION RATE(Performed 08/29/2012) Performed for Abdominal Pain, Unspecified Site * COMPREHENSIVE METABOLIC PANEL(Performed 08/29/2012) Performed for Abdominal Pain, Unspecified Site * CBC W AUTO DIFFERENTIAL(Performed 08/29/2012) Performed for Abdominal Pain, Unspecified Site * XR ABDOMEN KUB(Performed 08/29/2012) Performed for Abdominal Pain, Unspecified Site * CT HEAD WO CONTRAST(Performed 05/19/2012) Performed for Headache * CULTURE STREP GROUP A(Performed 04/04/2012) Performed for Acute pharyngitis * STREP A SCREEN - POINT OF CARE (AMB)(Performed 04/04/2012) Performed for Acute pharyngitis * XR CLAVICLE RIGHT 2VW(Performed 08/28/2011) * T4 FREE(Performed 05/31/2011) Performed for Fatigue * TSH(Performed 05/31/2011) Performed for Fatigue * STREP A SCREEN DIRECT W RFLX STREP A CULTURE(Performed 12/25/2010) * CULTURE THROAT(Performed 09/18/2010) * STREP A SCREEN - POINT OF CARE (AMB)(Performed 09/18/2010) Performed for Sore throat Results * PATHOLOGY/CYTOLOGY REPORT ORDER (07/05/2022) Only the most recent of2 resultswithin the time period is included. 07/05/2022 Narrative 07/05/2022 Ordered by an unspecified provider. Scanned Document LAB - PATHOLOGY/CYTO LOGY ORDERABLES * SKIN TEST PPD - POINT OF CARE (09/27/2018 12:34 PM CDT) Only the most recent of2 resultswithin the time period is included. PPD 0 MM Normal PPD placed 09/25/2018 @ 12:05pm , PPd read 09/27/2018 @ 12:06pm Other MISCELLANEOUS SAMPLE S / Unknown 09/27/2018 12:34 PM CDT Derian Rush AMMONIUM SULFATE OPERATOR-CHIEF DEPUTY COURT CLERK LAB - POINT OF CARE ORDERABLES * (ABNORMAL) CULTURE URINE (12/07/2016 4:14 PM CDT) Only the most recent of5 resultswithin the time period is included. Urine Culture Routine Final report(A) [facility] ACCOUNT BILL Result 1 (A) [facility] ACCOUNT BILL Comment: Coagulase negative Staphylococcus species, not Staphylococcus saprophyticus. Greater than 100,000 colony forming units per mL Based on resistance to penicillin and susceptibility to oxacillin this isolate would be susceptible to: * Penicillinase-stable penicillins; such as: ?Cloxacillin ?Dicloxacillin ?Nafcillin * Beta-lactam/beta-lactamase inhibitor combinations; such as: ?Amoxicillin-clavulanic acid ?Ampicillin-sulbactam * Antistaphylococcal cephems; such as: ?Cefaclor ?Cefuroxime * Antistaphylococcal carbapenems; such as: ?Imipenem ?Meropenem Antimicrobial Susceptibility [facility] ACCOUNT BILL Comment: ? S = Susceptible; I = Intermediate; R = Resistant ? P = Positive; N = Negative ?MICS are expressed in micrograms per mL ?? Antibiotic ? RSLT#1 ?RSLT#2 ?RSLT#3 ?RSLT#4 Ciprofloxacin ?S Gentamicin ? S Levofloxacin ? S Linezolid ?S Nitrofurantoin ? S Oxacillin ?S Penicillin ? R Quinupristin/Dalfopristin ?S Rifampin ? S Tetracycline ? S Trimethoprim/Sulfa ? R Vancomycin ? S Urine URINE SPECIMEN FROM URINARY BLADDER / Unknown 12/07/2016 4:14 PM CDT 12/07/2016 Narrative Resulting Agency Comment [facility] [address] ??[facility] [phone] Angie Sung MD LAB - MICROBIOLOGY O RDERABLES [facility] ACCOUNT BILL [address] [place] [address] * (ABNORMAL) URINALYSIS - POINT OF CARE (12/07/2016) Only the most recent of7 resultswithin the time period is included. Clarity UA POCT clear Color UA POCT yellow Leukocyte UA 2+ Negative Nitrite UA POCT + Negative Urobilinogen UA 0.0(A) 0.1 - 1.0 Protein UA POCT 0.1 Negative pH UA 5.0 5.0 - 8.0 pH units Blood UA 250 Negative Specific [place] UA POCT 1.020 1.002 - 1.030 Ketone UA neg Negative Bilirubin UA POCT neg Negative Glucose UA neg Negative Urine URINE / Unknown 12/07/2016 Angie Sung MD LAB - POINT OF CARE ORDERABLES * (ABNORMAL) STREP A SCREEN - POINT OF CARE (AMB) (09/02/2015) Only the most recent of3 resultswithin the time period is included. Strep A Rapid POCT Positive(A) Negative Strep A Internal Control Present Other (qualifier value) ENTIRE THROAT (SURFACE REGION OF NECK) / Unknown 09/02/2015 Rey Valverde DO LAB - POINT OF CARE ORDERABLES * XR HANDS BILATERAL 2 VIEWS (06/21/2015 4:04 PM GREENSMAN) Anatomical Region Laterality Modality Wrist / Hand, Upper Extremity Ra diographic Imaging 06/21/2015 4:08 PM GREENSMAN Narrative 06/21/2015 4:56 PM GREENSMAN BILATERAL HANDS, TWO VIEW History: Psoriatic arthritis. There is degenerative change of the bilateral first carpometacarpal articulations and at the distal pole of the scaphoids. The joint spaces are otherwise preserved. There is no erosive arthropathy. DIAGNOSIS: Mild degenerative change. Edited by Abel Pack on 06/21/2015 4:37 PM Procedure Note Tal Garner MD - 06/21/2015 BILATERAL HANDS, TWO VIEW History: Psoriatic arthritis. There is degenerative change of the bilateral first carpometacarpal articulations and at the distal pole of the scaphoids. The joint spaces are otherwise preserved. There is no erosive arthropathy. DIAGNOSIS: Mild degenerative change. Edited by Abel Pack on 06/21/2015 4:37 PM Vero Valverde MD DIAGNOSTIC IMAGING O RDERABLES * XR KNEE BILAT ONE OR TWO VIEWS (06/21/2015 4:04 PM GREENSMAN) Anatomical Region Laterality Modality Lower Extremity Radiographic Ashley ging 06/21/2015 4:07 PM GREENSMAN Addenda Addendum by Tal Garner MD on 06/22/2015 11:14 AM GREENSMAN TO X-RAY REPORT The examination was bilateral knees, four view. The osseous structures are normal. There is no evidence of fracture or dislocation. No joint effusion is present. There is no joint space narrowing or erosions. DIAGNOSIS: Normal examination. Edited by Abel Pack on 06/22/2015 10:51 AM Narrative 06/21/2015 4:08 PM GREENSMAN Left knee, 3 view History: Pain There is no evidence of fracture or dislocation or joint effusion Procedure Note Tal Garner MD - 06/21/2015 Left knee, 3 view History: Pain There is no evidence of fracture or dislocation or joint effusion Vero Valverde MD DIAGNOSTIC IMAGING O RDERABLES * HEMOGLOBIN A1C (HgbA1C) (06/14/2015 2:15 PM GREENSMAN) Hemoglobin A1c 5.3 4.8 - 5.6 % [facility] INSURANCE BILL Comment: ? . ? Pre-diabetes: 5.7 - 6.4 ? Diabetes: >6.4 ? Glycemic control for adults with diabetes: <7.0 Whole blood specimen (specimen) BLOOD SPECIMEN WITH EDTA / Unknown 06/14/2015 2:15 PM GREENSMAN 06/14/2015 4:11 PM GREENSMAN Narrative Resulting Agency Comment [facility] [address] ??[facility] [phone] Angie Sung MD LAB - CHEMISTRY LIZZY LEPE [facility] INSURANCE BILL * VAGINITIS PLUS (BV CA CT NG TRICH) (PO REF) (06/14/2015 2:05 PM GREENSMAN) Atopobium vaginae Low - 0 Score LA [...] such clearance or approval is not necessary. Luisana albicans PO Negative Negative [facility] ACCOUNT BILL Luisana glabrata PO Negative Negative [facility] ACCOUNT BILL [...] ENTIRE VAGINA / Unknown 06/14/2015 2:05 PM GREENSMAN 06/14/2015 9:03 PM GREENSMAN Narrative Resulting Agency Comment [facility] [address] ??[facility] [id number] Angie Sung MD LAB - MICROBIOLOGY O RDERABLES Performing Organization Address [facility] Co de Phone Number [facility] ACCOUNT BILL * XR KNEE 4+ VW RIGHT (12/10/2014) Anatomical Region Laterality Modality Lower Extremity Other Angie Sung MD DIAGNOSTIC IMAGING O RDERABLES * CULTURE STREP GROUP A (02/18/2014) Only the most recent of2 resultswithin the time period is included. Miscellaneous samples (specimen) Emergency Physician LAB - MICROBIOLOGY O RDERABLES Performing Organization Address City/[facility]/ZIP Co de Phone Number [facility] ACCOUNT BILL * (ABNORMAL) TISSUE TRANSGLUTAMINASE AB IGA (03/19/2013 9:29 AM GREENSMAN) Pathologist [facility] Tissue Transglutaminase (tTG) Ab, IgA 148(H) 0 - 19 Units 03/20/2013 12:38 PM GREENSMAN [facility] Comment: INTERPRETIVE INFORMATION: Tissue Transglutaminase (tTG) Antibody, IgA 19 Units or less: Negative 20-30 Units: Weak Positive 31 Units or greater: Moderate to Strong Positive Presence of the tissue transglutaminase (tTG) IgA antibody is associated with gluten-sensitive enteropathies such as celiac disease and dermatitis herpetiformis. tTG IgA antibody concentrations greater than or equal to 100 Units usually correlate with results of duodenal biopsies consistent with a diagnosis of celiac disease. For antibody concentrations greater than 20 Units but less than 100 Units, additional testing for endomysial (SAMY) IgA concentrations may improve the positive predictive value for disease. Blood specimen (specimen) BLOOD SPECIMEN / Unknown 03/19/2013 9:29 AM GREENSMAN 03/19/2013 9:48 AM GREENSMAN Alondra Walls MD LAB - SEROLOGY ORDER [facility] [address] [place] [address] * IGA BLOOD (03/19/2013 9:29 AM GREENSMAN) Pathologist [facility] IgA 161 65 - 421 mg/dL 03/19/2013 10:12 AM [facility] Blood BLOOD SPECIMEN / Unknown 03/19/2013 9:29 AM GREENSMAN 03/19/2013 9:48 AM GREENSMAN Alondra Walls MD LAB - CHEMISTRY ORDE RABLES [facility] [place] [address] * (ABNORMAL) VITAMIN D 25-HYDROXY (03/19/2013 9:28 AM GREENSMAN) Pathologist [facility] Vitamin D, 25 Hydroxy 15.87(L) 30 - 100 ng/mL 03/19/2013 4:29 PM [facility] Blood BLOOD SPECIMEN / Unknown 03/19/2013 9:28 AM GREENSMAN 03/19/2013 9:48 AM GREENSMAN Narrative [facility] - 03/19/2013 4:29 PM GREENSMAN Vitamin D Status: ?Deficiency ? <20 ? ng/mL ?Insufficiency ?? 20-30 ??ng/mL ?Sufficiency ? 30-100 ng/mL ?Toxicity ? >100 ?ng/mL Alondra Walls MD LAB - CHEMISTRY LIZZY LEPE Performing Organization Address [facility] de Phone Number [facility] [address] [place] [address] * HELICOBACTER PYLORI UREASE (03/19/2013 9:17 AM GREENSMAN) Helicobacter pylori Urease Initial Negative Negative 03/20/2013 10:27 AM GREENSMAN [facility] Helicobacter pylori Urease Final Negative Negative 03/20/2013 10:27 AM [facility] Microbiology GASTRIC ANTRAL BIOPSY SPECIMEN / Unknown 03/19/2013 9:17 AM GREENSMAN 03/19/2013 9:48 AM GREENSMAN Alondra Walls MD LAB - MICROBIOLOGY O RDERAKHANH Performing Organization Address [facility] de Phone Number [facility] [address] [place] [address] * GROSS + MICRO EXAM (STL) (03/19/2013 9:15 AM GREENSMAN) Case Report Surgical Pathology Report ? Case: [id number] ? Authorizing Provider: ??Alondra Walls MD ? Ordering Provider: ?? Alondra Walls MD ? Ordering Location: ? [facility] ?Collected: ? 03/19/2013 ??9:15 AM ? Pathologist: ? Hrapreet Jj MD ?Received: ?03/19/2013 ??9:55 AM ?Signed Out: ?03/24/2013 10:11 AM ? (Addend, F) ? 03/20/2013 10:26 PM (Final) ? Specimens: ?? A) - Duodenum ? B) - Stomach ? C) - Esophagus, Mid ? D) - Esophagus, Distal ? 03/24/2013 10:11 AM [facility] Addendum 1 D) 1 GMS. ?? GMS staining of the esophagus biopsy is negative for fungi. ??(DB/scs) 03/24/2013 10:11 AM [facility] Addendum electronically signed by Harpreet Jj MD on 03/24/2013 at 12:41 PM Final Diagnosis A) SMALL INTESTINE, DUODENUM, BIOPSY: ?? - MILD ACTIVE ENTERITIS WITH MODERATE VILLOUS BLUNTING AND ? INTRAEPITHELIAL LYMPHOCYTOSIS (SEE COMMENT). B) STOMACH, BIOPSY: ?? - NO PATHOLOGIC DIAGNOSIS. C) ESOPHAGUS, MID, BIOPSY: ?? - NO PATHOLOGIC DIAGNOSIS. D) ESOPHAGUS, DISTAL, BIOPSY: ?? - ESOPHAGITIS, MILD. COMMENT: ??The duodenal findings correlate to a modified Morales score of 3B. ??The duodenal findings, though consistent with celiac disease, are not specific for celiac disease and can be seen in other clinical settings including postenteritis enteropathy, immunodeficiency, autoimmune enteropathy, cow's milk and other dietary protein intolerance, bacterial overgrowth, and severe malnutrition. ??GMS staining of specimen D is pending and will be reported in an addendum. 03/24/2013 10:11 AM [facility] Clinical History The patient is a 17-year-old girl with weight loss and elevated celiac serology who underwent upper endoscopy. The findings were erythema, mild nodularity, and scalloping in the duodenum. 03/24/2013 10:11 AM [facility] Gross Description The specimens are received fixed in formalin in four containers for gross and microscopic examination. ??All containers are labeled with the patient's name, Brandy Gallardo. Specimen A, duodenum, consists of five soft, yellow-fontaine tissue fragments, 3 mm to 4 mm in greatest dimension. ??The specimen is submitted in toto as A1. Specimen B, stomach, consists of a 4 mm soft, yellow-fontaine tissue fragment, submitted in toto as B1. Specimen C, mid esophagus, consists of two 3 mm soft, abraham-pink tissue fragments, submitted in toto as C1. Specimen D, distal esophagus, consists of three 3 mm soft, abraham-pink tissue fragments, submitted in toto as D1. ??(CT/vr) 03/24/2013 10:11 AM [facility] Microscopic Description A) 3 H&E; B) 3 H&E; C)3 H&E; D) 3 H&E. Sections of specimen A show fragments of duodenal mucosa with moderate blunting of villi, intraepithelial lymphocytosis, expansion of the lamina propria by mixed inflammatory cells, and neutrophilic infiltration of occasional crypts and surface epithelium. ??No granulomata are present. ?? Sections of specimen B show fragments of gastric mucosa that are unremarkable except for a minimal increase in cellularity of the lamina propria. Sections of specimen C show fragments of unremarkable esophageal epithelium. Sections of specimen D show fragments of esophageal epithelium with spongiosis, basal hyperplasia, elongation of papillae, a mild increase in intraepithelial lymphocytes, occasional (up to 6 per high-power field) intraepithelial eosinophils, and a few intraepithelial neutrophils. ??(DB/vr) 03/24/2013 10:11 AM [facility] Disclaimer The performance characteristics of all immunohistochemical and indirect ??immunofluorescence stains (if any) cited in this report were determined by the [facility]opathology Laboratory of [facility] (immunohistochemistry ) or the [facility] Laboratory of [facility] (indirect immunofluorescence) in compliance with CLIA `88 regulations. ??Some of these tests rely on the use of analyte-specific reagents and are subject to specific labeling requirements by the FDA. ??Such tests were developed by the ??[facility] of [facility] or the [facility] of [facility] and have not been cleared or approved by the FDA. ??The FDA has determined that such clearance or approval is not necessary. ??These tests are used for clinical purposes and should not be regarded as investigational or for research. ? This case has been personally reviewed and interpreted by the attending (teaching) pathologist. 03/24/2013 10:11 AM [facility] Synoptic Report 03/24/2013 10:11 AM [facility] Pathology/Cytology PART OF DUODENUM / Unknown 03/19/2013 9:15 AM GREENSMAN 03/19/2013 9:55 AM GREENSMAN Miscellaneous samples (specimen) ENTIRE STOMACH / Unknown 03/19/2013 9:15 AM GREENSMAN 03/19/2013 9:55 AM GREENSMAN Miscellaneous samples (specimen) REGION OF ESOPHAGUS / Unknown 03/19/2013 9:15 AM GREENSMAN 03/19/2013 9:55 AM GREENSMAN Miscellaneous samples (specimen) REGION OF ESOPHAGUS / Unknown 03/19/2013 9:15 AM GREENSMAN 03/19/2013 9:55 AM GREENSMAN Alondra Walls MD LAB - PATHOLOGY/CYTO LOGY ORDERABLES [facility] [address] [place] [address] * EGD (03/19/2013 8:53 AM GREENSMAN) Report Endoscopy POC __ _ Patient Name: Brandy Gallardo ?Gender: Female ?Date of : 1995 Age: 17 ? Admit Type: Outpatient Attending MD: Alondra Walls, ? Order #: [id number] __ _ Procedure: ? Upper GI endoscopy Indications: ? Positive celiac serologies Providers: ? Alondra Walls Referring MD: ?Angie Sung Medicines: ? General Anesthesia Complications: ? No immediate complications. __ _ Procedure: ? After obtaining informed consent, the endoscope was passed ? under direct vision. Throughout the procedure, the ? patient's blood pressure, pulse, and oxygen saturations ? were monitored continuously. The Endoscope was introduced ? through the mouth, and advanced to the second part of ? duodenum. The upper GI endoscopy was accomplished without ? difficulty. The patient tolerated the procedure well. Findings: ? No gross lesions were noted in the entire esophagus. Biopsies were taken ? with a cold forceps for histology. Estimated blood loss was minimal. ? No gross lesions were noted in the entire examined stomach. Biopsies ? were taken with a cold forceps for Helicobacter pylori testing using a ? rapid urease test. Biopsies were taken with a cold forceps for ? histology. Estimated blood loss was minimal. ? No gross lesions were noted in the entire examined duodenum. Biopsies ? were taken with a cold forceps for histology. Estimated blood loss was ? minimal. Impression: ?- No gross lesions in esophagus. ? - No gross lesions in the stomach. ? - No gross lesions in duodenum. Recommendation: ?- Discharge patient to home (with parent). ? - Await pathology results. ? Procedure Code(s): ? --- Professional --- ? 92844, Upper gastrointestinal endoscopy including esophagus, stomach, ? and either the duodenum and/or jejunum as appropriate; with biopsy, ? single or multiple ? --- Technical --- ? 19268, Upper gastrointestinal endoscopy including esophagus, stomach, ? and either the duodenum and/or jejunum as appropriate; with biopsy, ? single or multiple Diagnosis Code(s): ? --- Professional --- ? 795.79, Other and unspecified nonspecific immunological findings ? --- Technical --- ? 795.79, Other and unspecified nonspecific immunological findings CPT (R) 2012 [employer]. All Rights Reserved. The codes documented in this report are preliminary and upon death surveys coder review may be revised to meet current compliance requirements. Dr. Alondra Walls Alondra Walls, 03/19/2013 9:24 AM This report has been signed electronically. Number of Addenda: 0 Note Initiated On: 03/19/2013 8:53 AM Procedure Date: ? 03/19/2013 8:53:02 AM ? This report has been signed electronically. [facility] 03/19/2013 8:53 AM GREENSMAN Narrative [facility] - 03/20/2013 1:27 PM GREENSMAN Procedure Note Alondra Walls MD - 03/19/2013 10:19 AM CST Alondra Walls MD GI PROCEDURE ORDERAB LES [facility] [address] [facility] [place] [address] * HCG URINE QUALITATIVE - POCT (IP) FRANCIA (03/19/2013 8:00 AM GREENSMAN) HCG Qual Urine Negative Negative [facility] POCT TESTING QC Verified YES Yes [facility] PO CT TESTING Urine specimen (specimen) URINE / Unknown 03/19/2013 8:00 AM GREENSMAN Alondra Walls MD LAB - POINT OF CARE ORDERABLES [facility] POCT TESTING [address] [facility] [place] [address] * XR CHEST PA AND LATERAL(most commonly ordered) (03/04/2013 2:10 PM GREENSMAN) Anatomical Region Laterality Modality Chest Radiographic Ashley ging 03/04/2013 2:12 PM GREENSMAN Impressions 03/04/2013 2:13 PM GREENSMAN No focal infiltrate. Narrative 03/04/2013 2:13 PM GREENSMAN 2 views of the chest performed March 04, 2013. History: Cough and fever. Frontal and lateral views of the chest were obtained. No prior chest x-rays are available for comparison. The lungs are clear. There is no evidence of pleural effusion or pneumothorax. The heart is within normal limits in size and the peripheral pulmonary vascularity is within normal limits. The visualized bony structures are intact. Procedure Note Alondra Fuentes MD - 03/04/2013 2 views of the chest performed March 04, 2013. History: Cough and fever. Frontal and lateral views of the chest were obtained. No prior chest x-rays are available for comparison. The lungs are clear. There is no evidence of pleural effusion or pneumothorax. The heart is within normal limits in size and the peripheral pulmonary vascularity is within normal limits. The visualized bony structures are intact. IMPRESSION No focal infiltrate. Meron Parada MD DIAGNOSTIC IMAGING O RDERABLES * MONONUCLEOSIS SCREEN (03/04/2013 1:19 PM GREENSMAN) Mononucleosis Screen Negative Negative 03/04/2013 2:56 PM GREENSMAN [facility] Blood BLOOD SPECIMEN / Unknown 03/04/2013 1:19 PM GREENSMAN 03/04/2013 1:26 PM GREENSMAN Meron Parada MD LAB - CHEMISTRY LIZZY LEPE [facility] [address] [place] [address] * (ABNORMAL) CBC W AUTO DIFFERENTIAL (03/04/2013 1:19 PM GREENSMAN) Only the most recent of2 resultswithin the time period is included. Pathologist [facility] WBC 11.2(H) 4.5 - 11.0 x10^9/L 03/04/2013 1:35 PM [facility] RBC 4.52 4.10 - 5.10 x10^12/L 03/04/2013 1:35 PM [facility] Hemoglobin 12.7 12.0 - 16.0 gm/dL 03/04/2013 1:35 PM [facility] Hematocrit 38.0 36.0 - 47.0 % 03/04/2013 1:35 PM [facility] MCV 84.1 78.0 - 98.0 fl 03/04/2013 1:35 PM [facility] MCH 28.1 25.0 - 35.0 pg 03/04/2013 1:35 PM [facility] MCHC 33.4 31.0 - 37.0 gm/dL 03/04/2013 1:35 PM [facility] Platelet Count 328 100 - 400 x10^9/L 03/04/2013 1:35 PM [facility] RDW-CV 13.3 11.5 - 14.0 % 03/04/2013 1:35 PM [facility] MPV 10.7(H) 6.0 - 9.5 fl 03/04/2013 1:35 PM [facility] Hematology Reflex Status Manual Diff to follow 03/04/2013 1:35 PM [facility] Blood BLOOD SPECIMEN / Unknown 03/04/2013 1:19 PM GREENSMAN 03/04/2013 1:26 PM GREENSMAN Meron Parada MD LAB - HEMATOLOGY ORD ERABLES [facility] [address] [place] [address] * (ABNORMAL) COMPREHENSIVE METABOLIC PANEL (03/04/2013 1:19 PM GREENSMAN) Only the most recent of3 resultswithin the time period is included. [facility] Glucose 85 70 - 105 mg/dL 03/04/2013 1:51 PM [facility] Sodium 141 136 - 145 mmol/L 03/04/2013 1:51 PM [facility] Potassium 3.7 3.5 - 5.1 mmol/L 03/04/2013 1:51 PM [facility] Chloride 106 98 - 107 mmol/L 03/04/2013 1:51 PM [facility] CO2 21 20 - 28 mmol/L 03/04/2013 1:51 PM [facility] Calcium 10.23 9.08 - 10.48 mg/dL 03/04/2013 1:51 PM [facility] Anion Gap 14 5 - 20 mmol/L 03/04/2013 1:51 PM [facility] BUN 11.4 5.3 - 18.7 mg/dL 03/04/2013 1:51 PM [facility] Creatinine 0.64 0.61 - 1.07 mg/dL 03/04/2013 1:51 PM [facility] eGFR by MDRD >60 mL/min/1.7 3m2 03/04/2013 1:51 PM [facility] Comment:eGFR calculations ar e not performed for children under 18 years old. eGFR by MDRD >60 mL/min/1.7 3m2 03/04/2013 1:51 PM [facility] Comment:eGFR calculations ar e not performed for children under 18 years old. Alkaline Phosphatase 84(L) 100 - 390 U/L 03/04/2013 1:51 PM [facility] ALT 14 8 - 65 U/L 03/04/2013 1:51 PM [facility] AST 17 3 - 35 U/L 03/04/2013 1:51 PM [facility] Protein Total 8.1 6.3 - 8.2 gm/dL 03/04/2013 1:51 PM [facility] Albumin 4.2 3.3 - 4.9 gm/dL 03/04/2013 1:51 PM [facility] Bilirubin Total 0.4 0.3 - 1.2 mg/dL 03/04/2013 1:51 PM [facility] Blood BLOOD SPECIMEN / Unknown 03/04/2013 1:19 PM GREENSMAN 03/04/2013 1:30 PM [facility] Meron Parada MD LAB - CHEMISTRY LIZZY LEPE Performing Organization Address [facility] [place] [facility] de Phone Number [facility] [address] [place] [address] * DIFFERENTIAL MANUAL (03/04/2013 1:19 PM GREENSMAN) WBC Auto 11.2 x10^9/L 03/04/2013 2:45 PM [facility] Neutrophil % Manual 74 31 - 78 % 03/04/2013 2:45 PM [facility] Lymphocytes % Manual 16 13 - 54 % 03/04/2013 2:45 PM [facility] Monocytes % Manual 6 4 - 13 % 03/04/2013 2:45 PM [facility] Eosinophils % Manual 3 0 - 8 % 03/04/2013 2:45 PM [facility] Basophils % Manual 1 % 03/04/2013 2:45 PM [facility] Cells Counted 100 # cells 03/04/2013 2:45 PM [facility] Platelet Estimation Adequate platelets Normal, Adequate platelets 03/04/2013 2:45 PM [facility] RBC Morphology Normal 03/04/2013 2:45 PM [facility] WBC Morph Normal 03/04/2013 2:45 PM [facility] Blood BLOOD SPECIMEN / Unknown 03/04/2013 1:19 PM GREENSMAN 03/04/2013 1:26 PM [facility] Meron Parada MD LAB - HEMATOLOGY JUHI GLYNN Performing Organization Address [facility] [place] [facility] de Phone Number [facility] [address] [place] [address] * (ABNORMAL) CELIAC DISEASE COMPREHENSIVE (12/24/2012 3:42 PM CDT) Antigliadin Antibody IgA 30(H) 0 - 19 units [facility] ACCOUNT BILL Comment: ?Negative ? 0 - 19 ?Weak Positive ? 20 - 30 ?Moderate to Strong Positive ?? >30 Gliadin Deamidated Antibody IgG 64(H) 0 - 19 units [facility] ACCOUNT BILL Comment: ?Negative ? 0 - 19 ?Weak Positive ? 20 - 30 ?Moderate to Strong Positive ?? >30 TTG Antibody IgA 84(H) 0 - 3 U/mL [facility] ACCOUNT BILL Comment: ? Negative ?0 - ??3 ? Weak Positive ?? 4 - 10 ? Positive ? >10 ?. ?Tissue Transglutaminase (tTG) has been identified ?as the endomysial antigen. ??Studies have demonstr- ?ated that endomysial IgA antibodies have over 99% ?specificity for gluten sensitive enteropathy. TTG Antibody IgG 24(H) 0 - 5 U/mL [facility] ACCOUNT BILL Comment: ? Negative ?0 - 5 ? Weak Positive ?? 6 - 9 ? Positive ? >9 Endomysial Antibody IgA Positive (A) Negative [facility] ACCOUNT BILL IgA Quantitative 159 77 - 278 mg/dL [facility] ACCOUNT BILL BLOOD SPECIMEN / Unknown 12/24/2012 3:42 PM CDT 12/24/2012 6:08 PM CDT Narrative Resulting Agency Comment Gurdeep Mayorga [address] [facility] ??[place] [phone] Angie Sung MD LAB - CHEMISTRY LIZZY LEPE [facility] ACCOUNT BILL * C-REACTIVE PROTEIN (CRP) (12/24/2012 3:42 PM CDT) C-Reactive Protein 1.2 0.0 - 4.9 mg/L [facility] ACCOUNT BILL Blood specimen (specimen) BLOOD SPECIMEN / Unknown 12/24/2012 3:42 PM CDT 12/24/2012 6:08 PM CDT Narrative Resulting Agency Comment [facility] [place] [address] ??[facility] [phone] Angie Sung MD LAB - CHEMISTRY LIZZY LEPE Performing Organization Address [facility] [place] [facility]/ZIP Co de Phone Number [facility] ACCOUNT BILL * SED RATE AUTO (ESR) (12/24/2012 3:42 PM CDT) Only the most recent of2 resultswithin the time period is included. Erythrocyte Sedimentation Rate Westergren 7 0 - 32 mm/hr [facility] ACCOUNT BILL Blood specimen (specimen) BLOOD SPECIMEN / Unknown 12/24/2012 3:42 PM CDT 12/24/2012 6:08 PM CDT Narrative Resulting Agency Comment [facility] [address] ??[facility] [phone] Angie Sung MD LAB - HEMATOLOGY JUHI GLYNN Performing Organization Address [facility] [place] [facility] Co de Phone Number [facility] ACCOUNT BILL * LIPASE BLOOD (12/24/2012 3:42 PM CDT) Lipase 25 0 - 59 U/L [facility] A CCOUNT BILL Blood specimen (specimen) BLOOD SPECIMEN / Unknown 12/24/2012 3:42 PM CDT 12/24/2012 6:08 PM CDT Narrative Resulting Agency Comment [facility] [address] ??[facility] [phone] Angie Sung MD LAB - CHEMISTRY LIZZY LEPE Performing Organization Address [facility] [place] [facility] Co de Phone Number [facility] ACCOUNT BILL * AMYLASE BLOOD (12/24/2012 3:42 PM CDT) Amylase 35 31 - 124 U/L [facility] ACCOUNT BILL Blood specimen (specimen) BLOOD SPECIMEN / Unknown 12/24/2012 3:42 PM CDT 12/24/2012 6:08 PM CDT Narrative Resulting Agency Comment [facility] [address] ??[facility] [phone] Angie Sung MD LAB - CHEMISTRY LIZZY LEPE Performing Organization Address [facility] [place] [facility] Co de Phone Number [facility] ACCOUNT BILL * TSH (12/22/2012 3:06 PM CDT) Only the most recent of2 resultswithin the time period is included. TSH 2.340 0.450 - 4.500 uIU/mL [facility] ACCOUNT BILL Blood specimen (specimen) BLOOD SPECIMEN / Unknown 12/22/2012 3:06 PM CDT 12/22/2012 6:07 PM CDT Narrative Resulting Agency Comment [address] ??[facility] [phone] Angie Sung MD LAB - CHEMISTRY LIZZY MONICOSHANAE Performing Organization Address [facility] [place] [facility] de Phone Number [facility] ACCOUNT BILL * T4 FREE (12/22/2012 3:06 PM CDT) Only the most recent of2 resultswithin the time period is included. T4 Free 1.28 0.93 - 1.60 ng/dL [facility] ACCOUNT BILL Blood specimen (specimen) BLOOD SPECIMEN / Unknown 12/22/2012 3:06 PM CDT 12/22/2012 6:07 PM CDT Narrative Resulting Agency Comment [facility] ??[facility] [phone] Angie Sung MD LAB - CHEMISTRY LIZZY LEPE Performing Organization Address [facility] [place] [facility] Co de Phone Number [facility] ACCOUNT BILL * CALCIUM/CREAT RATIO URINE RANDOM PANEL (08/29/2012 11:31 AM CDT) Calcium Urine 8.0 Not Estab. mg/dL [facility] ACCOUNT BILL Creatinine 24 Hour Urine 50.9 16.0 - 327.0 mg/dL [facility] ACCOUNT BILL Calcium/Creatin ine Ratio Urine 157 0 - 260 mg/g creat [facility] ACCOUNT BILL Urine specimen (specimen) URINE SPECIMEN OBTAINED BY CLEAN CATCH PROCEDURE / Unknown 08/29/2012 11:31 AM CDT 08/29/2012 8:33 PM CDT Narrative Resulting Agency [facility] [address] ??[facility] [phone] Angie Sung MD LAB - URINE CHEMISTR Y ORDERABLES Performing Organization Address [facility] [place] [facility] Co de Phone Number [facility] ACCOUNT BILL * KUB (08/29/2012) Anatomical Region Laterality Modality Abdomen Other Angie Sung MD DIAGNOSTIC IMAGING O RDERABLES * CT HEAD NON CONTRAST (05/19/2012) Anatomical Region Laterality Modality Head Other Angie Sung MD CT ORDERABLES * XR CLAVICLE RIGHT (08/28/2011) Anatomical Region Laterality Modality Upper Extremity, Chest Other Emergency Physician DIAGNOSTIC IMAGING O RDERABLES * STREP A SCREEN WITH REFLEX TO CULTURE (12/25/2010) ENTIRE THROAT (SURFACE REGION OF NECK) / Unknown Emergency Physician LAB - MICROBIOLOGY O RDERABLES Performing Organization Address [facility] [place] [facility] Co de Phone Number [facility] ACCOUNT BILL * CULTURE THROAT (09/18/2010 2:34 PM CDT) Upper Respiratory Culture Final report [facility] ACCOUNT BILL Result 1 RRF [facility] ACCOUNT BILL Comment:Routine respiratory cuca ENTIRE PHARYNX / Unknown 09/18/2010 2:34 PM CDT 09/18/2010 11:04 PM CDT Narrative Resulting Agency Comment [facility] [address] ??[facility] [phone] Angie Sung MD LAB - MICROBIOLOGY O RDERABLES Performing Organization Address [facility] [place] [facility] Co de Phone Number [facility] ACCOUNT BILL Care Teams Scoop Operator Relationship Specialty Start Date End Date Jesus Avila MD [address] [place] [phone] PCP - General 07/05/22
--- OUTSIDE RECORDS SUMMARY | 2024-04-25 11:10 | XMS_ITS | Encounter Summary ---
Author Organization [facility] Address [address] [place] [address] Care Team Providers Care Hazmat Truck Driver Name Role Phone Unavailable Primary Care Provider Unavailabl e Reason for Visit * Reason Comments Follow-up right knee injury; u rgent care visit Encounter Details Date Type Department Care Team (Late st Contact Info) Description 12/14/2014 11:15 AM CDT Office Visit [facility] - Pediatrics [address] [place] [phone] Angie Sugn MD [address] [place] [phone] Right knee sprain, subsequent encounter (Primary Dx) Social History Tobacco Use Types [...] Pressure - - Pulse - - Temperature 36.6 ??C (97.8 ??F) 12/14/2014 10:58 AM C DT Respiratory Rate - - Oxygen Saturation - - Inhaled Oxygen Concentration - - Weight 48.6 kg (107 lb 3.2 oz) 12/14/2014 10:58 AM CDT Height 154.9 cm (5' 1 ) 12/14/2014 10:58 AM CDT Body Mass Index 20.26 12/14/2014 10:58 AM CDT documented in this encounter Progress Notes * Anige Sung MD - 12/14/2014 3:35 PM CDT Brandy is a 19 y.o. female who presents for follow up of right knee injury for which she was seen at and xray negative. Injury occurred 4 days ago. She hit her knee against someone else's knee as well as against metal bed frame. She reports that her knee is much better now and only a small bruise is left. She is able to walk normally. She needs note to return to work. PE: Gen:well appearing Skeletal:right knee with 3-4 mm bruise over medial side of knee. No pain to palpation of patella, medial or lateral joint lines, or tibial tuberosity. nL extension/flexion without pain Impression: F/U right knee sprain, resolving Plan: may return to work * Florinda Vasquez RN - 12/14/2014 10:59 AM CDT Brandy Gallardo is a 19 y.o. female presents to office today by self for f/u after being seen at [facility] on 12/10/14 for knee injury. Pt says that she was dx'd with right knee sprain. Has been resting, using ice and elevation. Says that pain and swelling are improved. documented in this encounter Plan of Treatment Not on file documented as of this encounter Visit Diagnoses Diagnosis Right knee sprain, subsequent encounter- Primary documented in this encounter
--- OUTSIDE RECORDS SUMMARY | 2024-04-25 11:10 | XMS_ITS | Encounter Summary ---
Author Organization [facility] Address [address] [place] [address] Care Team Providers Care Sleeper Cutter Name Role Phone Unavailable Primary Care Provider Unavailabl e Reason for Visit * Reason Onset Date Comments Results 08/03/2015 Encounter Details Date Type Department Care Team (Late st Contact Info) Description 08/03/2015 Telephone [facility] - Pediatrics [address] [place] [phone] Angie Sung MD [address] [place] [phone] Results Social History Tobacco Use Types Packs/Day Years Used Date Smoking Tobacco: Never Smokeless Tobacco: Never Alcohol Use Standard Drinks/Week Comments Yes 0 (1 standard drink = 0.6 oz pur e alcohol) Sex and Gender Information Value Date Recorded Sex Assigned at Not on file Gender Identity Not on file Sexual Orientation Not on file documented as of this encounter Miscellaneous Notes * Telephone Encounter - Angie Sung MD - 08/04/2015 4:17 PM CDT Spoke with Brandy about cx results. Brandy reports that she has gotten strep twice in last 6 weeks. Usually gets it around this time of year. Discussed criteria for tonscillectomy * Telephone Encounter - Angie Sung MD - 08/04/2015 2:23 PM CDT Attempted to call, left message. * Telephone Encounter - Angie Sung MD - 08/03/2015 12:03 PM CDT Attempted to call. Left message. * Telephone Encounter - Florinda Vasquez RN - 08/03/2015 11:47 AM CDT Pt did call. Confirmed that she is on Amoxicillin. Wants to talk to Dr Sung regarding number of incidences she has had strep throat. * Telephone Encounter - Florinda Vasquez RN - 08/03/2015 10:00 AM CDT Attempted to reach parents/pt at home/mobile number to report throat culture result received today from [facility] lab, per Dr Sung's request. Result positive for Beta hemolytic strep. Dr Sung wanting to know if pt aware of result and if being treated with antibiotic. No answer. Message left for pt/parent to call office. documented in this encounter Plan of Treatment Not on file documented as of this encounter Visit Diagnoses Not on filedocumented in this encounter
--- OUTSIDE RECORDS SUMMARY | 2024-04-25 11:10 | XMS_ITS | Encounter Summary ---
Author Organization [facility] Address [address] [place] [address] Care Team Providers Care Production Superintendent Hydro Name Role Phone Unavailable Primary Care Provider Unavailabl e Reason for Visit * Reason Comments Refill Request Encounter Details Date Type Department Care Team (Late st Contact Info) Description 12/22/2014 Refill [facility] - Pediatrics [address] [place] [phone] Angie Sung MD [address] [place] [address] [phone] Refill Request Social History Tobacco Use Types Packs/Day Years Used Date Smoking Tobacco: Never Smokeless Tobacco: Never Alcohol Use Standard Drinks/Week Comments Yes 0 (1 standard drink = 0.6 oz pur e alcohol) Sex and Gender Information Value Date Recorded Sex Assigned at Not on file Gender Identity Not on file Sexual Orientation Not on file documented as of this encounter Plan of Treatment Not on file documented as of this encounter Visit Diagnoses Not on filedocumented in this encounter
--- OUTSIDE RECORDS SUMMARY | 2024-04-25 11:10 | XMS_ITS | Encounter Summary ---
Author Organization [facility] Health Address [address] [place] [address] Care Team Providers Care Geothermal Sheet Metal Worker Name Role Phone Unavailable Primary Care Provider Unavailabl e Encounter Details Date Type Department Care Team (Latest Contact Info) Description 06/21/2015 3:45 PM BUSINESS SOLUTIONS DIRECTOR - 06/21/2015 11:59 PM [facility] Hospital Encounter [facility] [address] [place] [address] Vero Valverde MD [address] [place] [id number] Discharge Disposition: Home or Self Care Social History Tobacco Use Types Packs/Day Years Used Date Smoking Tobacco: Never Smokeless Tobacco: Never Alcohol Use Standard Drinks/Week Comments Yes 0 (1 standard drink = 0.6 oz pur e alcohol) Sex and Gender Information Value Date Recorded Sex Assigned at Not on file Gender Identity Not on file Sexual Orientation Not on file documented as of this encounter Medications at Time of Discharge Medication Sig Dispensed Refills Start Date End Date Clobetasol Propionate (CLOBEX SPRAY EX)Indications:Pneumonia as needed 04/2015 metroNIDAZOLE vaginal (METROGEL - VAGINAL) 0.75 % vaginal gel 06/08/2015 10/28/2015 nitrofurantoin monohyd macro crystals (MACROBID) 100 MG capsule 06/08/2015 10/28/2015 sertraline (ZOLOFT) 25 MG tablet Take 1 Tab by mouth once daily 30 Tab 5 12/02/2014 03/10/2016 topiramate (TOPAMAX) 25 MG tablet Take 1 Tab by mouth 2 times daily 60 Tab 3 12/02/2014 03/26/2016 documented as of this encounter Plan of Treatment Not on file documented as of this encounter Procedures Procedure Name Priority Date/Time Associated Diagnosis Comments XR HAND BILAT 2VW Routine 06/21/2015 4:0 4 PM BUSINESS SOLUTIONS DIRECTOR Polyarthralgia XR KNEE BILAT 2VW OR LESS Routine 06/21/2015 4:04 PM BUSINESS SOLUTIONS DIRECTOR Polyarthralgia documented in this encounter Results * XR HANDS BILATERAL 2 VIEWS (06/21/2015 4:04 PM BUSINESS SOLUTIONS DIRECTOR) Anatomical Region Laterality Modality Wrist / Hand, Upper Extremity Ra diographic Imaging 06/21/2015 4:08 PM BUSINESS SOLUTIONS DIRECTOR Narrative 06/21/2015 4:56 PM BUSINESS SOLUTIONS DIRECTOR BILATERAL HANDS, TWO VIEW History: Psoriatic arthritis. There is degenerative change of the bilateral first carpometacarpal articulations and at the distal pole of the scaphoids. The joint spaces are otherwise preserved. There is no erosive arthropathy. DIAGNOSIS: Mild degenerative change. Edited by Crista Pack on 06/21/2015 4:37 PM Procedure Note Tal Garner MD - 06/21/2015 BILATERAL HANDS, TWO VIEW History: Psoriatic arthritis. There is degenerative change of the bilateral first carpometacarpal articulations and at the distal pole of the scaphoids. The joint spaces are otherwise preserved. There is no erosive arthropathy. DIAGNOSIS: Mild degenerative change. Edited by Crista Pack on 06/21/2015 4:37 PM Vero Valverde MD DIAGNOSTIC IMAGING O RDERABLES * XR KNEE BILAT ONE OR TWO VIEWS (06/21/2015 4:04 PM BUSINESS SOLUTIONS DIRECTOR) Anatomical Region Laterality Modality Lower Extremity Radiographic Ashley ging 06/21/2015 4:07 PM BUSINESS SOLUTIONS DIRECTOR Addenda Addendum by Tal Garner MD on 06/22/2015 11:14 AM BUSINESS SOLUTIONS DIRECTOR TO X-RAY REPORT The examination was bilateral knees, four view. The osseous structures are normal. There is no evidence of fracture or dislocation. No joint effusion is present. There is no joint space narrowing or erosions. DIAGNOSIS: Normal examination. Edited by Crista Pack on 06/22/2015 10:51 AM Narrative 06/21/2015 4:08 PM BUSINESS SOLUTIONS DIRECTOR Left knee, 3 view History: Pain There is no evidence of fracture or dislocation or joint effusion Procedure Note Tal Garner MD - 06/21/2015 Left knee, 3 view History: Pain There is no evidence of fracture or dislocation or joint effusion Vero Valverde MD DIAGNOSTIC IMAGING O RDERABLES documented in this encounter Visit Diagnoses Diagnosis Polyarthralgia Pain in joint, multiple sites documented in this encounter
--- OUTSIDE RECORDS SUMMARY | 2024-04-25 11:10 | XMS_ITS | Encounter Summary ---
Author Organization [facility] Health Address [address] [place] [address] Care Team Providers Care Senior Clinical Research Associate Name Role Phone Unavailable Primary Care Provider Unavailabl e Reason for Visit * Reason Comments Refill Request Encounter Details Date Type Department Care Team (Late st Contact Info) Description 03/10/2016 Refill [facility] - Pediatrics [address] [place] [phone] Angie Sung MD [address] [place] [address] [phone] Refill Request Social History Tobacco [...]
--- OUTSIDE RECORDS SUMMARY | 2024-04-25 11:10 | XMS_ITS | Encounter Summary ---
Author Organization [facility] Address [address] [place] [address] Care Team Providers Care Cabin Man Name Role Phone Unavailable Primary Care Provider Unavailabl e Reason for Visit * Reason Comments Follow-up follow up migraines and anxiety. Taking Topamax 75 mg BID and Zoloft 25 mg daily. Encounter Details Date Type Department Care Team (Late st Contact Info) Description 07/20/2016 2:40 PM CDT Office Visit [facility] - Pediatrics [address] [place] [address] [address] [place] [phone] Rey Valverde DO [address] [place] [phone] Migraine without status migrainosus, not intractable, unspecified migraine type (Primary Dx); Recurrent major depressive disorder, remission status unspecified (HCC) Social History Tobacco Use Types Packs/Day Years [...] Sign Reading Time Taken Comments Blood Pressure 126/82 07/20/2016 2:37 PM CDT Pulse 96 07/20/2016 2:37 PM CDT Temperature - - Respiratory Rate - - Oxygen Saturation - - Inhaled Oxygen Concentration - - Weight 58.8 kg (129 lb 9.6 oz) 07/20/2016 2:37 P M CDT Height - - Body Mass Index 24.49 10/28/2015 2:39 PM CDT documented in this encounter Progress Notes * Rey Valverde, DO - 07/20/2016 2:44 PM CDT Sick Visit Name: Brandy Bravo Age: 20 y.o. Accompanied By: self CC: Chief Complaint Patient presents with ??? Follow-up follow up migraines and anxiety. Taking Topamax 75 mg BID and Zoloft 25 mg daily. HPI: follow up on Migraine. No bladder infections recently. Mild GARCIA more low blood sugar. If she makes sure she eats no mild GARCIA Occasional GARCIA but easier to manage. Fine on medication. 75mg BID. Have dropped in the past and it has gotten worse before. Mirena for control no problems. On zoloft- doing well. Current Medications: Current Outpatient Prescriptions Medication ??? topiramate (TOPAMAX) 50 MG tablet ??? topiramate (TOPAMAX) 25 MG tablet ??? sertraline (ZOLOFT) 25 MG tablet No current facility-administered medications for this visit. Allergies: Allergies Allergen Reactions ??? Fish Allergy Rash and Swelling Battered fillet ??? Donatussin Urticaria ??? Gluten Meal Abdominal pain, nausea, diarrhea PE: BP 126/82 Pulse 96 Wt 58.8 kg (129 lb 9.6 oz) BMI 24.49 kg/m2 General alert, cooperative, no distress Skin Skin color, texture, turgor normal. No rashes or lesions Head NCAT w/o lesions or tenderness Eyes/Ears sclera and conjunctiva clear bilateral TM's and external ear canals normal Nose/ Throat nose:normal, throat: no erythema and normal tonsil size Neck supple, non-tender, with full ROM, and no lymphadenopathy Heart regular rate and rhythm, S1, S2 normal, no murmur, click, rub or gallop Lungs clear to auscultation bilaterally Impression / Plan: 1. Migraines- doing well has tried to decrease in the past and GARCIA came back. Cont at current dose and refill given 2. Depression- doing well on zoloft Will be moving around her birthday to live with her in [place]. Discussed cont to see her as needed until then. documented in this encounter Plan of Treatment Not on file documented as of this encounter Visit Diagnoses Diagnosis Migraine without status migrainosus, not intractable, unspecified migraine type- Primary Recurrent major depressive disorder, remission status unspecified (HCC) documented in this encounter
--- OUTSIDE RECORDS SUMMARY | 2024-04-25 11:10 | XMS_ITS | Encounter Summary ---
Author Organization [facility] Health Address [address] [place] [address] Care Team Providers Care Publicity Agent Name Role Phone Jesus Avila MD Primary Care Provider [phone] Encounter Details Date Type Department Care Team (Latest Contact Info) Description 02/07/2023 Travel Social History Tobacco Use Types Packs/Day Years [...] Diagnoses Not on filedocumented in this encounter Care Teams Publicity Agent Relationship Specialty Start Date End Date Jesus Avila MD [address] [place] [address] PCP - General 07/05/22 documented as of this encounter
--- OUTSIDE RECORDS SUMMARY | 2024-04-25 11:10 | XMS_ITS | Encounter Summary ---
Author Organization [facility] Address [address] [place] [address] Care Team Providers Care Wire Temperer Name Role Phone Unavailable Primary Care Provider Unavailabl e Reason for Visit * Reason Comments PPD Skin Test Placement Encounter Details Date Type Department Care Team (Late st Contact Info) Description 09/25/2018 12:00 PM CDT Office Visit [facility] AT [address] [place] [address] [phone] Provider, Arun Cat Branch Screening for tuberculosis (Primary Dx) Social History Tobacco Use Types Packs/Day Years Used Date Smoking Tobacco: Never Smokeless Tobacco: Never Alcohol Use Standard Drinks/Week Comments Yes 0 (1 standard drink = 0.6 oz pur e alcohol) Sex and Gender Information Value Date Recorded Sex Assigned at Not on file Gender Identity Not on file Sexual Orientation Not on file documented as of this encounter Patient Instructions * Patient Instructions* Derian Rush, LICENSED EMBALMER-GLOVE WRAPPER - 09/25/2018 12:09 PM CDT Return in 48-72 hours to have ppd read. CLINIC HOURS: Saturday - Saturday: 9am - 7:30pm Saturday & Saturday: 10am-4:30pm (Holidays: hours may vary) documented in this encounter Progress Notes * Chari Dinero - 09/27/2018 12:35 PM CDT Office Visit on 09/25/18 SKIN TEST PPD - POINT OF CARE Result Value Ref Range PPD 0 MM Normal PPD placed 09/25/2018 @ 12:05pm , PPd read 09/27/2018 @ 12:06pm * Derian Rush APRN-CNP - 09/25/2018 12:08 PM CDT PPD Placement note Brandy Bravo, [...] (if applicable): na Patient's Country of origin?: [place] O: Alert and oriented in NAD. P: PPD placed on 09/25/2018. Patient advised to return for reading within 48-72 hours. documented in this encounter Plan of Treatment Not on file documented as of this encounter Procedures Procedure Name Priority Date/Time Associated Diagnosis Comments SKIN TEST PPD - POINT OF CARE Routine 09/27/2018 12:34 PM CDT Screening for tuberculosis documented in this encounter Results * SKIN TEST PPD - POINT OF CARE (09/27/2018 12:34 PM CDT) PPD 0 MM Normal PPD placed 09/25/2018 @ 12:05pm , PPd read 09/27/2018 @ 12:06pm Other MISCELLANEOUS SAMPLE S / Unknown 09/27/2018 12:34 PM CDT Derian Rush LICENSED EMBALMER-GLOVE WRAPPER LAB - POINT OF CARE ORDERABLES documented in this encounter Visit Diagnoses Diagnosis Screening for tuberculosis- Primary Screening examination for pulmonary tuberculosis documented in this encounter Administered Medications Administered Medications Medication Order MAR Action Action Date Dose Rate Site PPD Intradermal Given 09/25/2018 0.1 mL Left Forearm documented in this encounter
--- OUTSIDE RECORDS SUMMARY | 2024-04-25 11:10 | XMS_ITS | Encounter Summary ---
Author Organization [facility] Health Address [address] [place] [address] Care Team Providers Care Energy Technician Name Role Phone Unavailable Primary Care Provider Unavailabl e Reason for Visit * Reason Comments Refill Request Encounter Details Date Type Department Care Team (Late st Contact Info) Description 10/22/2016 Refill [facility] - Pediatrics [address] [place] [phone] Angie Sung MD [address] [place] [address] [phone] Refill Request Social History Tobacco [...]
--- OUTSIDE RECORDS SUMMARY | 2024-04-25 11:10 | XMS_ITS | Encounter Summary ---
Author Organization [facility] Address [address] [place] [address] Care Team Providers Care Riveter Hand Name Role Phone Unavailable Primary Care Provider Unavailabl e Reason for Visit * Reason Comments Bladder infection c/o urinary ferquenc y, brurning with urination 2 days. No fever. Medication Problem Would like to stop T opamax Encounter Details Date Type Department Care Team (Late st Contact Info) Description 12/07/2016 3:45 PM CDT Office Visit [facility] - Pediatrics [address] [place] [address] [place] [phone] Angie Sung MD [address] [place] [phone] Acute cystitis without hematuria (Primary Dx); Hx of migraine headaches Social History Tobacco Use Types Packs/Day Years [...] Pressure - - Pulse - - Temperature 37.4 ??C (99.4 ??F) 12/07/2016 3:49 PM CD T Respiratory Rate - - Oxygen Saturation - - Inhaled Oxygen Concentration - - Weight 60.8 kg (134 lb) 12/07/2016 3:49 PM CDT Height - - Body Mass Index 25.32 10/28/2015 2:39 PM CDT documented in this encounter Progress Notes * Florinda Vasquez RN - 12/10/2016 8:48 AM CDT Attempted to reach pt at home/mobile number. No answer. Detailed message left relaying results and Dr Sung's information. * Angie Sung MD - 12/10/2016 8:30 AM CDT Brandy's urine cx grew a staph species, it is sensitive to the abx she is on. * Angie Sung MD - 12/07/2016 4:07 PM CDT Brandy Bravo, 21 y.o., female, here with for evaluation of pain with urination. Symptoms started 2 days ago. Fever:No Dysuria:Yes Urinary Frequency:Yes Urinary Urgency:Yes Enuresis:No Abdominal Pain:No, Back Pain:No Vomiting:No, Gross Hematuria:No Medications: Zoloft, topamax Previous hx of UTI:Yes Brandy would like to stop taking topamax. She really only gets headaches when her blood sugar is low which she can control. Hasn't had a headache in quite a long time. PE: Temp 99.4 ??F (Temporal Artery) Wt 60.8 kg (134 lb) BMI 25.32 kg/m2 Alert NAD Heart: normal S1, S2, no murmurs or gallops. Lungs: Clear to auscultation and Normal breath sounds bilaterally Abdomen:Normal scaphoid appearance, soft, non-tender, without organ enlargement or masses. Back: CVA tenderness: No Urine dipstick Results:+leuk nitrite Impression: 1. UTI 2. Hx of chronic headache Plan: Send Culture Rx:macrobid Will call with results Encouraged plenty of fluids. 2. Advised to go to topamax 50mg daily for 2 weeks, then decrease to 25 mg daily for 2 weeks. Then go off topamax. documented in this encounter Plan of Treatment Not on file documented as of this encounter Procedures Procedure Name Priority Date/Time Associated Diagnosis Comments CULTURE URINE Routine 12/07/2016 4:14 PM CDT Acute cystitis without hematuria URINALYSIS - POINT OF CARE Routine 12/07/2016 Acute cystitis without hematuria documented in this encounter Results * (ABNORMAL) CULTURE URINE (12/07/2016 4:14 PM CDT) Urine Culture Routine Final report(A) [...] CDT 12/07/2016 Narrative Resulting Agency Comment [facility] [place] [address] ??[facility] [id number] Angie Sung MD LAB - MICROBIOLOGY O RDERABLES [facility] ACCOUNT BILL [address] [place] [address] * (ABNORMAL) URINALYSIS - POINT OF CARE (12/07/2016) Clarity UA POCT clear Color UA POCT yellow Leukocyte UA 2+ Negative Nitrite UA POCT + Negative Urobilinogen UA 0.0(A) 0.1 - 1.0 Protein UA POCT 0.1 Negative pH UA 5.0 5.0 - 8.0 pH units Blood UA 250 Negative Specific [place] UA POCT 1.020 1.002 - 1.030 Ketone UA neg Negative Bilirubin UA POCT neg Negative Glucose UA neg Negative Urine URINE / Unknown 12/07/2016 Angie Sung MD LAB - POINT OF CARE ORDERABLES documented in this encounter Visit Diagnoses Diagnosis Acute cystitis without hematuria- Primary Acute cystitis Hx of migraine headaches Personal history of other disorders of nervous system and sense organs documented in this encounter
--- OUTSIDE RECORDS SUMMARY | 2024-04-25 11:10 | XMS_ITS | Encounter Summary ---
Author Organization [facility] Address [address] [place] [address] Care Team Providers Care Spray Gun Striper Name Role Phone Unavailable Primary Care Provider Unavailabl e Reason for Visit * Reason Comments Bladder infection x 2 weks c/o burning with urination, frequency and odor to urine. No vivible hematuria. No fever. Encounter Details Date Type Department Care Team (Late st Contact Info) Description 01/16/2016 2:40 PM CDT Office Visit [facility] - Pediatrics [address] [place] [address] [place] [phone] Rey Valverde, [address] [place] [address] [phone] Recurrent UTI (Primary Dx) Social History Tobacco Use Types [...] Pressure - - Pulse - - Temperature 37.2 ??C (99 ??F) 01/16/2016 2:47 PM CDT Respiratory Rate - - Oxygen Saturation - - Inhaled Oxygen Concentration - - Weight 54.6 kg (120 lb 6.4 oz) 01/16/2016 2:47 P M CDT Height - - Body Mass Index 22.75 10/28/2015 2:39 PM CDT documented in this encounter Progress Notes * Jordyn Wang RN - 01/24/2016 11:45 AM CDTQuick Note: Pt aware. Continue abx as prescribed. Number given for urology. * Jordyn Wang RN - 01/24/2016 11:43 AM CDTQuick Note: Left messages at both home and cell numbers to call office for results. * Rey Valverde DO - 01/24/2016 11:30 AM CDTQuick Note: Samuel and tell Brandy it was a bladder infection and the abx should be fine. Can you give her the name of the adult urology group near [place] too please? * Rey Valverde DO - 01/16/2016 2:55 PM CDT Sick Visit Name: Brandy Bravo Age: 20 y.o. Accompanied By: Self CC: Chief Complaint Patient presents with ??? Bladder infection x 2 weks c/o burning with urination, frequency and odor to urine. No vivible hematuria. No fever. HPI: Started 2 weeks ago but was going on her Honeymoon and waited but now back and still having symptoms. Getting worse. Burning sensation. Urgency and frequency. Waking her up at night. Has been pushing fluids. Gets yeast infections a lot after abx. No belly pain or fever. Peeing after sex. No condoms has a IUD. No fevers. Doing well with GARCIA on topamax. Current Medications: Current Outpatient Prescriptions Medication Sig Dispense Refill ??? sertraline (ZOLOFT) 25 MG tablet Take 1 Tab by mouth once daily 30 Tab 5 ??? topiramate (TOPAMAX) 25 MG tablet Take 1 Tab by mouth 2 times daily 60 Tab 3 ??? amoxicillin (AMOXIL) 875 MG tablet 0 No current facility-administered medications for this visit. Allergies: Allergies Allergen Reactions ??? Fish Allergy Rash and Swelling Battered fillet ??? Donatussin Urticaria ??? Gluten Meal Abdominal pain, nausea, diarrhea PE: Temp(Src) 99 ??F (Temporal Artery) Wt 54.613 kg (120 lb 6.4 oz) General alert, cooperative, no distress Skin Skin color, texture, turgor normal. No rashes or lesions Head NCAT w/o lesions or tenderness Eyes/Ears sclera and conjunctiva clear bilateral TM's and external ear canals normal Nose/ Throat nose:normal, throat: no erythema or exudates noted. Teeth and gums normal Neck supple, non-tender, with full ROM, and no lymphadenopathy Heart regular rate and rhythm, S1, S2 normal, no murmur, click, rub or gallop Lungs clear to auscultation bilaterally Abdomen S/nd mild suprapubic tenderness Impression / Plan: 1. Recurrent UTI- abx (bactrim) and referral to adult Urology. Will give fluconazole with concern for getting a yeast infection. documented in this encounter Plan of Treatment Not on file documented as of this encounter Procedures Procedure Name Priority Date/Time Associated Diagnosis Comments URINALYSIS - POINT OF CARE Routine 01/16/2016 3:21 PM CDT Recurrent UTI CULTURE URINE Routine 01/16/2016 3:17 PM CDT Recurrent UTI documented in this encounter Results * (ABNORMAL) URINALYSIS - POINT OF CARE (01/16/2016 3:21 PM CDT) Clarity UA POCT Cloudy Color UA POCT yellow Leukocyte UA + Negative Nitrite UA POCT + Negative Urobilinogen UA 0.1 0.1 - 1.0 Protein UA POCT neg Negative pH UA 5.0 5.0 - 8.0 pH units Blood UA trace Negative Specific [place] UA POCT 1`.015 1.002 - 1.030 Ketone UA neg Negative Bilirubin UA POCT neg Negative Glucose UA neg Negative Urine specimen (specimen) URINE / Unknown 01/16/2016 3:21 PM CDT Rey Valverde DO LAB - POINT OF CARE ORDERABLES * (ABNORMAL) CULTURE URINE (01/16/2016 3:17 PM CDT) Urine Culture Routine Final report(A) [facility] ACCOUNT BILL Result 1 (A) [facility] ACCOUNT BILL Comment: Escherichia coli, identified by an automated biochemical system. Greater than 100,000 colony forming units per mL Antimicrobial Susceptibility [facility] ACCOUNT BILL Comment: ? S = Susceptible; I = Intermediate; R = Resistant ? P = Positive; N = Negative ?MICS are expressed in micrograms per mL ?? Antibiotic ? RSLT#1 ?RSLT#2 ?RSLT#3 ?RSLT#4 Amoxicillin/Clavulanic Acid ?S Ampicillin ? S Cefepime ? S Ceftriaxone ?S Cefuroxime ? S Cephalothin ?S Ciprofloxacin ?S Ertapenem ?S Gentamicin ? S Imipenem ? S Levofloxacin ? S Nitrofurantoin ? S Piperacillin ? S Tetracycline ? R Tobramycin ? S Trimethoprim/Sulfa ? S Urine specimen (specimen) URINE SPECIMEN FROM URINARY BLADDER / Unknown 01/16/2016 3:17 PM CDT 01/16/2016 9:56 PM CDT Narrative Resulting Agency Comment [facility] [place] [address] ??[place] [id number] Rey Valverde DO LAB - MICROBIOL OGY ORDERABLES [facility] ACCOUNT BILL [address] [place] [address] documented in this encounter Visit Diagnoses Diagnosis Recurrent UTI- Primary Urinary tract infection, site not specified documented in this encounter
--- OUTSIDE RECORDS SUMMARY | 2024-04-25 11:10 | XMS_ITS | Clinical Summary ---
Author Organization [facility] Address [address] [facility] [place] [address] Care Team Providers Care Fellmongery Worker Name Role Phone Jesus Avila MD Primary Care Provider [phone] Source Comments [facility],non-owned Affiliates and Associated Physician Practices is amultiple site organization consisting of ambulatory clinics and hospital sitesin [place], [place], [place] and [place]. This disclosure is being madepursuant to the Care Everywhere program and may not contain all information available regarding this patient. Last updated 18.[facility] Allergies Active Allergy Reactions Criticality Noted Date [...] 11/22/2000, 8,03/17/1996,1995 TDAP (7yrs+) 10/31/2006 VARICELLA 10/31/2006,03/23/1997 Family History Medical History Relation Name Comments ADHD Brother Thyroid Disease Brother Diabetes Father Asthma Maternal Grandfather CAD (Coronary Artery Disease) Maternal Grandfather Depression Maternal Grandfather Diabetes Maternal Grandfather Heart Failure Maternal Grandfather Diabetes Maternal Grandmother Thyroid Disease Maternal Grandmother Allergies Mother Asthma Mother Cancer Mother Papillary Thyro id Depression Mother Hypertension Mother Migraine Mother Thyroid Disease Mother Thyroid Disease Other maternal aun t, paternal uncle with Graves Relation Name Status Comments Brother Father Maternal Grandfather Maternal Grandmother Mother Other Social History Tobacco Use Types Packs/Day Years [...] Comments Blood Pressure 127/80 07/05/2022 10:56 AM MOTOR VEHICLE OR CARAVAN SALESPERSON Pulse 93 07/05/2022 10:56 AM MOTOR VEHICLE OR CARAVAN SALESPERSON Temperature 37 ??C (98.6 ??F) 07/05/2022 10:56 AM MOTOR VEHICLE OR CARAVAN SALESPERSON Respiratory Rate 18 07/05/2022 10:56 AM MOTOR VEHICLE OR CARAVAN SALESPERSON Oxygen Saturation 100% 07/05/2022 10:56 AM MOTOR VEHICLE OR CARAVAN SALESPERSON Inhaled Oxygen Concentration - - Weight 68.9 kg (152 lb) 07/05/2022 10:56 AM MOTOR VEHICLE OR CARAVAN SALESPERSON Height 152.4 cm (5') 07/05/2022 10:56 AM MOTOR VEHICLE OR CARAVAN SALESPERSON Body Mass Index 29.69 07/05/2022 10:56 AM MOTOR VEHICLE OR CARAVAN SALESPERSON Plan of Treatment Health Maintenance Due Date Last Done Comments PAP SMEAR 1995 HIV SCREENING 11/28/2010 HEPATITIS C SCREENING 11/24/2013 DTAP/TDAP/TD VACCINES (7 - Td or Tdap) 10/31/2016 10/31/2006, 11/22/2000, 06/02/1997, Additional history exists DEPRESSION SCREENING 04/29/2023 COVID-19 VACCINE ( season) 2023 12/23/2020, 12/02/2020 INFLUENZA VACCINE (#1) 2023 , 02/20/2020, 01/25/2013, Additional history exists ZOSTER VACCINE (1 of 2) 11/28/2045 HEPATITIS B VACCINE Completed 06/03/1996, 01/14/1996, 1995 HIB VACCINE Completed 06/02/1997, 08/1996, 03/17/1996, Additional history exists MENINGOCOCCAL VACCINE Aged Out 11/25/2007 No acta ladan eligible based on patient's age to complete this topic HPV VACCINE Completed 10/13/2010, 05/30, 04/10/2010 PNEUMOCOCCAL VACCINE Aged Out No long er eligible based on patient's age to complete this topic Care Teams Fellmongery Worker Relationship Specialty Start Date End Date Jesus Avila MD [address] [place] [phone] PCP - General 07/05/22
--- OUTSIDE RECORDS SUMMARY | 2024-04-25 11:10 | XMS_ITS | Encounter Summary ---
Author Organization [facility] Address [address] [place] [address] Care Team Providers Care Weight Analyst Name Role Phone Unavailable Primary Care Provider Unavailabl e Reason for Visit * Reason Comments Employment Physical Encounter Details Date Type Department Care Team (Late st Contact Info) Description 09/18/2018 7:00 PM CDT Office Visit [facility] [address] [phone] [facility] Social History Tobacco Use Types [...] Sign Reading Time Taken Comments Blood Pressure 112/60 09/18/2018 2:02 PM CDT Pulse 74 09/18/2018 2:02 PM CDT Temperature 37.1 ??C (98.7 ??F) 09/18/2018 2:02 PM CD T Respiratory Rate 16 09/18/2018 2:02 PM CDT Oxygen Saturation 98% 09/18/2018 2:02 PM CDT Inhaled Oxygen Concentration - - Weight 69.1 kg (152 lb 6.4 oz) 09/18/2018 2:02 P M CDT Height 154.9 cm (5' 1 ) 09/18/2018 2:02 PM CDT Body Mass Index 28.8 09/18/2018 2:02 PM CDT documented in this encounter Progress Notes * More Noyola - 09/20/2018 2:34 PM CDT 09/20/2018 Brandy Bravo returns to clinic today for TB (PPD) reading. 0 mm of induration noted, negative reading. Copy of the results were given to patient and scanned into the medical record. Patient denies any further questions or concerns today. More Noyola 09/20/2018 2:34 PM * Janelle Calderon APRN-SHOOTER HELPER - 09/18/2018 2:02 PM CDT Brandy Bravo is a 22 year old female patient, She needs clearance today for school. 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 Medications reviewed. Outpatient Prescriptions Marked as Taking for the 09/18/18 encounter (Office Visit) with Provider, Arun Hebert Medication Sig ??? Citalopram Hydrobromide (CELEXA PO) Allergies Allergen Reactions ??? Fish Allergy Rash and Swelling Battered fillet ??? Donatussin Urticaria ??? Gluten Meal Abdominal pain, nausea, diarrhea Past Medical History: Diagnosis Date ??? Celiac disease 2012 ??? Concussion 2006 while sledding, hit head ??? Psoriasis ??? UTI (urinary tract infection) Past Surgical History: Procedure Laterality Date ??? Cholecystectomy ??? Cyst Removal Left 03/11/15 MP joint L hand; ganglion cyst ??? ENDOSCOPY, UPPER 03/19/2013 ENDOSCOPY GI UPPER DIAGNOSTIC ??? NEGATIVE SURGICAL HISTORY Social History Social History ??? Marital status: Spouse name: N/A ??? Number of children: N/A ??? Years of education: N/A Occupational History ??? Not on file. Social History Main Topics ??? Smoking status: Never Smoker ??? Smokeless tobacco: Never Used ??? Alcohol use Yes ??? Drug use: Not on file ??? Sexual activity: Not on file Other Topics Concern ??? Not on file Social History Narrative Brandy lives at home with her parents and younger brother. She is in high school History Smoking Status ??? Never Smoker Smokeless Tobacco ??? Never Used She denies use of steroids, other performance, or recreational drugs. ROS Constitutional: Negative Eyes: Negative, denies vision changes, blurriness. EMNT: Negative Cardio: Negative, denies any history of chest pain, chest pain with exertion, feeling lightheaded or dizziness with exercise. Resp: Negative, denies difficulty breathing during or after exertion. Gastro: Negative : Negative Musculoskeletal: Negative, denies any known lifting restrictions, denies any known physical limitations. Skin: Negative Lymphatic/Allergy: Negative Neuro: Negative, denies any history of concussion, head injury, or seizures. Psych: Do you feel stressed out or under a lot of pressure? No Do you ever feel sad, hopeless, depressed, or anxious? No Do you feel safe at your home or residence? Yes BP 112/60 (BP SITE: LEFT ARM, BP POSITION: SITTING, BP CUFF SIZE: 11) Pulse 74 Temp 98.7 ??F (37.1 ??C) (Oral) Resp 16 Ht 1.549 m (5' 1 ) Wt 69.1 kg (152 lb 6.4 oz) SpO2 98% BMI 28.8 kg/m2 Visual Acuity Screening Right eye Left eye Both eyes Without correction: 20/25 20/100 20/20 With correction: Pt. did not have glasses with her today for exam, in process of getting new glasses from eye doctor. Pt states she Has a hx of her right eye being the bad eye that is why she wears glasses. Physical Exam General appearance: alert, cooperative, no distress Head: Normocephalic, without trauma Eyes: sclera and conjunctiva clear, EOMI and PERRLA, lids normal Ears: canals clear, tympanic membranes normal, hearing intact to voice Nose: nares open; no septal deviation is noted Throat: no mucous membrane abnormalities Neck: range of motion is intact, no masses, thyroid not enlarged, no adenopathy Nodes: no cervical adenopathy Back: no deformity or tenderness, Lungs: breath sounds normal and symmetric; no rales or wheezes Heart: regular rhythm, normal S1 and S2, without murmurs, gallops or rubs Abdomen: soft without mass, non-tender, with normal bowel sounds Extremities: no clubbing, cyanosis or edema Circulation: radial and pedal pulses are intact and symmetrical, Joints: ranges of motion normal without inflammation, effusion or deformity Skin: no rashes or other abnormalities are noted Neurologic: mental status normal; alert and oriented X 3; cranial nerves II - XII are grossly intact Functional assessment: -Able to reach overhead Yes -Climb stair Yes -Ability to squat/bend/kneel without difficulty Yes -Ability to sit/stand, walk, and move about without difficulty Yes Any limitations: No, if yes-they are listed below: Encounter Diagnoses Name Primary? School physical exam Yes PLAN: Cleared to work without restrictions - form signed and returned to patient and scanned into [employer]. Reviewed health maintenance and substance abuse as appropriate. Continue to follow-up with Angie Sung MD as directed-if no PCP, referral given. .TOM Mcgee 09/18/2018 2:21 PM documented in this encounter Plan of Treatment Not on file documented as of this encounter Visit Diagnoses Diagnosis School physical exam- Primary Health examination of defined subpopulation documented in this encounter
--- OUTSIDE RECORDS SUMMARY | 2024-04-25 11:10 | XMS_ITS | Encounter Summary ---
Author Organization [facility] Address [address] [place] [address] Care Team Providers Care Prefabricator Name Role Phone Unavailable Primary Care Provider Unavailabl e Reason for Visit * Reason Onset Date Comments Medication Clarification 03/30/2016 Encounter Details Date Type Department Care Team (Late st Contact Info) Description 03/30/2016 Telephone [facility] - [facility] [address] [place] [phone] Angie Sung MD [address] [place] [phone] Medication Clarification Social History Tobacco Use Types Packs/Day Years [...] Telephone Encounter - Angie Sung MD - 03/30/2016 11:55 AM CST [facility] called back. States prescription sent in November of 2014 was for 25mg. When I looked back,looks like a 25mg and 50mg was sent on same day. Hasn't filled a script for topamax since April. --will fill script for 25mg BID. --Brandy should be seen before refills. RACT CLERK * Telephone Encounter - Angie Sung MD - 03/30/2016 11:49 AM CST Left a message at [facility] that the last time I filled the script, in November of 2014, Brandy was taking 50mg BID. So, if someone else has been prescribing lower dose, that prescriber should refill medication. Otherwise, would fill 50mg BID. Call if further questions. RACT CLERK * Telephone Encounter - Jolanta Cortez - 03/30/2016 10:17 AM CST Rosette from [facility] called. She would like clarification the on MG for Brandy's topiramate (TOPAMAX). They faxed a request for the topiramate (TOPAMAX) 25 MG tablet and received a refillfor topiramate (TOPAMAX) 50 MG tablet. They would like to know if the prescription was changed. RACT CLERK documented in this encounter Plan of Treatment Not on file documented as of this encounter Visit Diagnoses Not on filedocumented in this encounter
--- OUTSIDE RECORDS SUMMARY | 2024-04-25 11:10 | XMS_ITS | Encounter Summary ---
Author Organization [facility] Address [address] [place] [address] Care Team Providers Care Director Dietetics Department Name Role Phone Unavailable Primary Care Provider Unavailabl e Reason for Visit * Reason Comments Refill Request Encounter Details Date Type Department Care Team (Late st Contact Info) Description 07/16/2016 Refill [facility] - Pediatrics [address] [place] [phone] Angie Sung MD [address] [place] [address] [phone] Refill Request Social History Tobacco [...] encounter Miscellaneous Notes * Telephone Encounter - Florinda Vasquez RN - 07/17/2016 9:13 AM CDT Spoke with pt. Appointment scheduled for 07/20/16. * Telephone Encounter - Jordyn Wang RN - 07/17/2016 8:54 AM CDT Left message to call office * Telephone Encounter - Rey Valverde DO - 07/17/2016 1:[address] Sung refilled 25mg BID at last refill in March but wanted to see her again before next refill. This will be her last refill. Seems to not be taking daily as last script lasted 2-3 months. documented in this encounter Plan of Treatment Not on file documented as of this encounter Visit Diagnoses Not on filedocumented in this encounter
--- OUTSIDE RECORDS SUMMARY | 2024-04-25 11:10 | XMS_ITS | Encounter Summary ---
Author Organization [facility] Address [address] [place] [address] Care Team Providers Care Formal Service Waiter Name Role Phone Unavailable Primary Care Provider Unavailabl e Reason for Visit * Reason Comments Ear Pain right ear pain x 3 d ays. No fever. No drainage. Injury Finger Left hand middle fin ladan painful x 1 month. No injury that she can recall. Full ROM. No swelling or discoloration. Bladder infection frequent UTI's. Visi ble blood in urine at this time. Dysuria. +frequency. No fever. Encounter Details Date Type Department Care Team (Late st Contact Info) Description 02/21/2015 2:45 PM CDT Office Visit [facility] - Pediatrics [address] [place] [address] [place] [phone] Angie Sung MD [address] [place] [address] [phone] Urinary tract infection with hematuria, site unspecified (Primary Dx); Cyst in hand; Ear pain, right Social History Tobacco Use Types Packs/Day Years [...] - - Temperature 37.4 ??C (99.4 ??F) 02/21/2015 3:37 PM CD T Respiratory Rate - - Oxygen Saturation - - Inhaled Oxygen Concentration - - Weight 49.7 kg (109 lb 9.6 oz) 02/21/2015 3:37 P M CDT Height - - Body Mass Index 20.71 12/14/2014 10:58 AM CDT documented in this encounter Progress Notes * Jordyn Wang RN - 02/24/2015 2:34 PM CDTQuick Note: Left message at cell number [phone] regarding UCX results. Continue abx as prescribed. * Angie Sung MD - 02/23/2015 5:59 PM CDTQuick Note: Let Brandy know that her Ucx showed some bacteria, but not enough to consider it a UTI, but her u/a was suggestive of UTI, so have her continue abx. * Angie Sung MD - 02/22/2015 8:50 AM CDT Brandy Gallardo, 19 y.o., female, here for evaluation of right ear pain, left hand pain, and blood in urine. She has had ear pain for 3 days. Fever: No Congestion:No Runny Nose:No, Ear Drainage:No She has had a painful bump to base of 3rd finger on left hand for the past month. The bump has not changed in size at all during that time. There has been no overlying redness. She has not had similar bumps in the past. She is right handed. She has also had blood in her urine as well as dysuria since yesterday. +frequency +urgency No abdominal or back pain She reports a hx of multiple UTIs in the past and was treated for yeast infection last week. (in looking back in the chart, I do no see any + urine cx's as far back as 2010) Medications: reviewed. PE: Temp(Src) 99.4 ??F (Temporal Artery) Wt 49.714 kg (109 lb 9.6 oz) Alert, NAD HEENT: Ears: Left:Normal Right: Tm is mildly red, +light reflex Nose:normal Throat:normal Neck: supple, shoddy LAD Heart: normal S1, S2, no murmurs or gallops. Lungs:Clear to auscultation and Normal breath sounds bilaterally M/S: palmar surface of left hand with firm pea-sized nodule just proximal to base of 3rd digit. It is tender to deep palpation. U/a: + Impression: 1. UTI 2. Hand nodule --?ganglion cyst 3. Right ear pain -borderline Tm on exam Plan: Rx: 1. Rx: cefzil as per orders Will send urine cx 2. Refer to hand specialist 3. Will already be on abx for UTI which would cover for infection documented in this encounter Plan of Treatment Not on file documented as of this encounter Procedures Procedure Name Priority Date/Time Associated Diagnosis Comments CULTURE URINE Routine 02/21/2015 5:04 PM CDT Urinary tract infection with hematuria, site unspecified URINALYSIS - POINT OF CARE Routine 02/21/2015 3:44 PM CDT Urinary tract infection with hematuria, site unspecified documented in this encounter Results * CULTURE URINE (02/21/2015 5:04 PM CDT) Urine Culture Routine Final report [facility] INSURANCE BILL Result 1 [facility] INSURANCE BILL Comment: Mixed urogenital cuca 25,000-50,000 colony forming units per mL Urine specimen (specimen) URINE SPECIMEN FROM URINARY BLADDER / Unknown 02/21/2015 5:04 PM CDT 02/21/2015 9:24 PM CDT Narrative Resulting Agency Comment [address] ??[facility] [phone] Angie Sung MD LAB - MICROBIOLOGY O RDERABLES [facility] INSURANCE BILL * (ABNORMAL) URINALYSIS - POINT OF CARE (02/21/2015 3:44 PM CDT) Clarity UA POCT cloudy Color UA POCT imani Leukocyte UA + Negative Nitrite UA POCT + Negative Urobilinogen UA 0.1 - 1.0 Protein UA POCT ++ Negative pH UA 6.0 5.0 - 8.0 pH units Blood UA 250 Negative Specific [place] UA POCT 1.020 1.002 - 1.030 Ketone UA Negative Bilirubin UA POCT Negative Glucose UA Negative Urine specimen (specimen) URINE / Unknown 02/21/2015 3:44 PM CDT Angie Sung MD LAB - POINT OF CARE ORDERABLES documented in this encounter Visit Diagnoses Diagnosis Urinary tract infection with hematuria, site unspecified- Primary Cyst in hand Ganglion, unspecified Ear pain, right documented in this encounter
--- OUTSIDE RECORDS SUMMARY | 2024-04-25 11:10 | XMS_ITS | Encounter Summary ---
Author Organization [facility] Address [address] [place] [address] Care Team Providers Care Meteorological Engineer Name Role Phone Unavailable Primary Care Provider Unavailabl e Reason for Visit * Reason Onset Date Comments MEDICATION REFILL 03/26/2016 Encounter Details Date Type Department Care Team (Late st Contact Info) Description 03/26/2016 Refill [facility] - Pediatrics [address] [place] [phone] Rey Valverde DO [address] [place] [phone] MEDICATION REFILL Social History Tobacco Use Types Packs/Day Years [...] Telephone Encounter - Angie Sung MD - 03/26/2016 8:44 PM CST Refill requested via pharmacy. ES DESPATCH HAND documented in this encounter Plan of Treatment Not on file documented as of this encounter Visit Diagnoses Not on filedocumented in this encounter
--- OUTSIDE RECORDS SUMMARY | 2024-04-25 11:11 | XMS_ITS | Encounter Summary ---
Author Organization [facility] Address [address] [place] [address] Care Team Providers Care Fern Cutter Name Role Phone Unavailable Primary Care Provider Unavailabl e Reason for Referral * - Closed Specialty Diagnoses / Procedures Referred By Steve chino Referred To Contact Gastroenterology Diagnoses Abnormal celiac antibody panel Procedures EGD Alondra Walls MD [address] [place] [id number] Referral ID Status Reason Start Date Expiration Date Visits Re quested Visits Authorized [id number] Closed 02/17/2013 08/16/2013 1 1 Reason for Visit * Reason Comments Evaluation Celiac Encounter Details Date Type Department Care Team (Latest Contact Info) Description 02/17/2013 1:37 PM CDT - 02/17/2013 11:59 PM CDT Hospital Encounter [facility] - GI [address] [place] [address] [phone] Alondra Walls MD [address] [place] [address] [phone] Discharge Disposition: Home or Self Care Social History Tobacco Use Types Packs/Day Years Used Date Smoking Tobacco: Never Assessed Sex and Gender Information Value Date Recorded Sex Assigned at Not on file Gender Identity Not on file Sexual Orientation Not on file documented as of this encounter Last Filed Vital Signs Vital Sign Reading Time Taken Comments Blood Pressure 105/70 02/17/2013 1:37 PM CDT Pulse - - Temperature - - Respiratory Rate - - Oxygen Saturation - - Inhaled Oxygen Concentration - - Weight 46 kg (101 lb 6.4 oz) 02/17/2013 1:37 PM CDT Height 154.7 cm (5' 0.91 ) 02/17/2013 1:37 PM CD T Body Mass Index 19.22 02/17/2013 1:37 PM CDT Body Mass Index Percentile 25.61% 02/17/2013 1:3 7 PM CDT Growth Chart: [facility] (Girls, 2- 20 Years) documented in this encounter Discharge Instructions * Patient Instructions* Alexandra Manzano RN - 02/17/2013 2:47 PM CDT We will plan for an upper endoscopy to confirm diagnosis Your child is scheduled to have an Upper Endoscopy onMarch 02 at 8:30am with Dr. Walls Please arrive at 7:00am .Go to outpatient admitting office on the ground floor (off the round atrium) to check in. She may not have any food, milk or orange juice after midnight. Your child may have clear liquids (water and clear juice) until 5:30. documented in this encounter Medications at Time of Discharge Medication Sig Dispensed Refills Start Date End Date topiramate (TOPAMAX) 25 MG tablet Take 1 Tab by mouth 2 times daily. Doctor visit before any further refills 60 Tab 2 12/20/2012 11/08/2013 documented as of this encounter Progress Notes * Florinda Bennett RD/ARABELLA - 02/19/2013 10:49 AM CDT Nutrition Reassessment Note The encounter diagnosis was Abnormal celiac antibody panel. Assessment: Food/nutrition related history:Typical diet for teenager, since November, has followed a low gluten diet, family is in the process of eliminating gluten Patient reports 20 # weight loss from April to November. Anthropometrics: Weight: 45.995 kg (101 lb 6.4 oz) 8.46%ile based on CDC 2-20 Years [id number] data. Height: 154.7 cm (5' 0.91 ) 10.08%ile based on CDC 2-20 Years [id number] data. Body mass index is 19.22 kg/(m^2). 25.61%ile based on CDC 2-20 Years BMI-for-age data. Labs/Tests/Procedures Reviewed, tTG Ig A 87 Medications: reviewed Nutrition Care Process (1) Nutrition Diagnostic Statement: Food and nutrition-related knowledge deficit related to: Gluten free diet as evidenced by : new diagnosis of Celiac disease Nutrition Intervention: (E-2) Comprehensive Nutrition Education:Provided verbal and printed instruction for Gluten Free diet including web sources, special product source, information regarding hidden gluten and cross contamination. Recommend daily multivitamin (gluten supplement) Coordintation of care: Spoke with Dr. Walls, obtain vitamin D level when she is here for scope. Nutrition Goal: Food/Nutrition information can be demonstrated-Parents and patient were interested and verbalize understanding Expect good compliance I spent 60 minutes with this patient and family Follow-up:per GI clinic appointment schedule or sooner if not able to maintain weight (parents to call with concerns). Florinda Bennett RD/ARABELLA * Alondra Walls MD - 02/17/2013 2:35 PM CDT CHIEF COMPLAINT: Evaluation Brandy Gallardo was seen in the Pediatric GI clinic along with her mother in constulation HISTORY: Brandy is a 17 y.o. female who presents with a chief complaint of Possible celiac disease. Brandy was referred to us by her mold car pusher after celiac serology was significantly elevated. It seems that Brandy had 20 lb weight loss from April to November. Mom reports taking her to PCP to evaluate for thyroid dysfunction as there is significant family history of thyroid disease/thyroid cancer. She has had intermittent abodminal pain since this time. There were not particular exacerbating or alleviating factors to abdominal pain. She reports h/o intermittent constipation. She reports intermittent heartburn and takes Tums as needed which helps. She also has h/o headaches. She was started on Topamax in the spring for migraine headaches which has improved symptoms. During workup of above symptoms, PCP obtained celiac serology that revealed tTG IgA of 87 . Brandy and her family leared a little about celiac disease and Brandy reduced gluten in her diet (not eliminated). She reports someimprovement in her abdominal pain since that time. ON questioning, Brandy does have h/o autoimmune disease - psoriasis diagnosed several years ago. As mentioned, there is h/o thyroid disease in the family. No known h/o celiac disease. PAST MEDICAL HISTORY: Brandy's past medical history includes: Past Medical History Diagnosis Date ??? Concussion 2006 while sledding, hit head ??? Psoriasis Brandy's past surgical history includes: No past surgical history on file. History Vitals ??? Weight: 3.232 kg (7 lbs 2 oz) ??? Delivery Method: ??? Gestation Age: 41 wks ??? Hospital Name: [facility] ??? Hospital Location: [place], [place] SOCIAL HISTORY: History Social History Narrative ??? No narrative on file FAMILY HISTORY: Family History Problem Relation Age of Onset ??? Asthma Mother ??? Cancer Mother Papillary Thyroid ??? Hypertension Mother ??? Migraine Mother ??? Thyroid Disease Mother ??? Allergies Mother ??? Depression Mother ??? Asthma Maternal Grandfather ??? Coronary Artery Disease Maternal Grandfather ??? Heart Failure Maternal Grandfather ??? Depression Maternal Grandfather ??? Diabetes Father ??? Thyroid Disease Brother ??? ADHD Brother ??? Thyroid Disease Maternal Grandmother ??? Thyroid Disease Other maternal aunt, paternal uncle with Graves REVIEW OF SYSTEMS is po GEN: no fevers, chills or weight loss HEENT: no cough, cold, congestion, rhinorrhea, mouth ulcers, sore throat CV: no known cardiac disease PULM: no known respiratory disorders GI: see HPI above; positive for abdominal pain, nausea, vomiting, diarrhea, constipation, hematochezia and melena : no dysuria or hematuria HEME: no easy bleeding or bruising NEURO: no headaches, no seizures PSYCH: no history of mental illness ALL/IMMUNO: no history of seasonal allergies MUSC: she had joint pain in knees and wrist pain DERM: postivie CURRENT MEDICATIONS: Current Outpatient Prescriptions Medication Status Sig Dispense Refill ??? topiramate (TOPAMAX) 25 MG tablet Active Take 1 Tab by mouth 2 times daily. Doctor visit beforeany further refills 60 Tab 2 PHYSICAL EXAM: BP 105/70 Wt 45.995 kg (101 lb 6.4 oz) BMI 19.22 kg/m2 GEN: awake, alert, interactive with exam in no acute distress HEENT: sclera anicteric, mucus membranes moist, no oral lesion CV: regular rate and rhythm without murmur LUNGS: clear to auscultation bilaterally, equal aeration bilat ABD: soft, not apparently tender or distended, no organomegaly, bowel sounds present EXT: warm and well perfused - red raised plaque to anterior surface of bilat shins NEURO: no obvious deficits PSYCH: appropriate mentation for age IMPRESSION: In summary, Brandy is a 17 y/o F with h/o intermittent abodminal pain, weight loss and positive celiac serology. Her constellation of symptoms are highly suspicious for celiac disease PLAN: Orders Placed This Encounter ??? IGA BLOOD Standing Status: Future Number of Occurrences: Standing Expiration Date: 02/12/2014 ??? TISSUE TRANSGLUTAMINASE AB IGA Standing Status: Future Number of Occurrences: Standing Expiration Date: 02/12/2014 ??? VITAMIN D 25-HYDROXY Standing Status: Future Number of Occurrences: Standing Expiration Date: 02/12/2014 ??? EGD Standing Status: Future Number of Occurrences: Standing Expiration Date: 02/17/2014 We discussed celiac disease and its potential complications at length. Carbon Setter discussed gluten-free diet/lifestyle at length with family We discussed need for endoscopy with histopathologic diagnosis to confirm clinical suspicion. Brandy will continue to have gluten in the diet until the endoscopy which has been scheduled Plan of care, including education on the safe and effective use of medication(s) and/or medical equipment if prescribed, was discussed with Brandy and her family who verbalized understanding and agreedwith the treatment options discussed. 02/17/2013 11:15 AM documented in this encounter Miscellaneous Notes * Miscellaneous Scans - Document, Scanned - 02/18/2013 4:19 PM CDT documented in this encounter Plan of Treatment Not on file documented as of this encounter Results * (ABNORMAL) TISSUE TRANSGLUTAMINASE AB IGA (03/19/2013 9:29 AM VALVING MACHINE OPERATOR) Pathologist [facility] Tissue Transglutaminase (tTG) Ab, IgA 148(H) 0 - 19 Units 03/20/2013 12:38 PM VALVING MACHINE OPERATOR [facility] [employer] Comment: INTERPRETIVE INFORMATION: Tissue Transglutaminase (tTG) Antibody, [...] BLOOD SPECIMEN / Unknown 03/19/2013 9:29 AM VALVING MACHINE OPERATOR 03/19/2013 9:48 AM VALVING MACHINE OPERATOR Alondra Walls MD LAB - SEROLOGY ORDER WAQ[facility] [employer] [address] [place] [address] * IGA BLOOD (03/19/2013 9:29 AM VALVING MACHINE OPERATOR) Pathologist [facility] IgA 161 65 - 421 mg/dL 03/19/2013 10:12 AM VALVING MACHINE OPERATOR [facility] Blood BLOOD SPECIMEN / Unknown 03/19/2013 9:29 AM VALVING MACHINE OPERATOR 03/19/2013 9:48 AM VALVING MACHINE OPERATOR Alondra Walls MD LAB - CHEMISTRY ORDE RABSHANAE [facility] [address] [place] [address] * (ABNORMAL) VITAMIN D 25-HYDROXY (03/19/2013 9:28 AM VALVING MACHINE OPERATOR) Pathologist [facility] Vitamin D, 25 Hydroxy 15.87(L) 30 - 100 ng/mL 03/19/2013 4:29 PM VALVING MACHINE OPERATOR [facility] Blood BLOOD SPECIMEN / Unknown 03/19/2013 9:28 AM VALVING MACHINE OPERATOR 03/19/2013 9:48 AM VALVING MACHINE OPERATOR Narrative [facility] - 03/19/2013 4:29 PM VALVING MACHINE OPERATOR Vitamin D Status: ?Deficiency ? <20 ? ng/mL ?Insufficiency ?? 20-30 ??ng/mL ?Sufficiency ? 30-100 ng/mL ?Toxicity ? >100 ?ng/mL Alondra Walls MD LAB - CHEMISTRY LIZZY LEPE [facility] [address] [place] [address] * EGD (03/19/2013 8:53 AM VALVING MACHINE OPERATOR) Report Endoscopy POC __ _ Patient Name: Brandy Gallardo ?Gender: Female ?Date of : 1995 Age: 17 ? Admit Type: Outpatient Attending MD: Alondra Walls, ? Order #: [id number] __ _ Procedure: ? Upper GI endoscopy Indications: ? Positive celiac serologies Providers: ? Alondra Salas MD: ?Angie Sung Medicines: ? General Anesthesia [...] Procedure Code(s): ? --- Professional --- ? 84159, Upper gastrointestinal endoscopy including esophagus, stomach, ? and either the duodenum and/or jejunum as appropriate; with biopsy, ? single or multiple ? --- Technical --- ? 81462, Upper gastrointestinal endoscopy including esophagus, stomach, ? and either the duodenum and/or jejunum as appropriate; with biopsy, ? single or multiple Diagnosis Code(s): ? --- Professional --- ? 795.79, Other and unspecified nonspecific immunological findings ? --- Technical --- ? 795.79, Other and unspecified nonspecific immunological findings CPT (R) 2012 [employer]. All Rights Reserved. The codes documented in this report are preliminary and upon braille coder review may be revised to meet current compliance requirements. Dr. Alondra Walls Alondra Walls, 03/19/2013 9:24 AM This report has been signed electronically. Number of Addenda: 0 Note Initiated On: 03/19/2013 8:53 AM Procedure Date: ? 03/19/2013 8:53:02 AM ? This report has been signed electronically. [facility] 03/19/2013 8:53 AM VALVING MACHINE OPERATOR Narrative [facility] - 03/20/2013 1:27 PM VALVING MACHINE OPERATOR Procedure Note Alondra Walls MD - 03/19/2013 10:19 AM CST Alondra Walls MD GI PROCEDURE ORDERAB LES Performing Organization Address City/State/[facility] Co de Phone Number [facility] [address] [place] [address] documented in this encounter Visit Diagnoses Diagnosis Abnormal celiac antibody panel- Primary Other and unspecified nonspecific immunological findings Abnormal celiac antibody panel- Primary Other and unspecified nonspecific immunological findings GERD without esophagitis Esophageal reflux documented in this encounter
--- OUTSIDE RECORDS SUMMARY | 2024-04-25 11:11 | XMS_ITS | Encounter Summary ---
Author Organization [facility] Address [address] [place] [address] Care Team Providers Care Er Medical Technician Name Role Phone Unavailable Primary Care Provider Unavailabl e Reason for Referral * - Closed Specialty Diagnoses / Procedures Referred By Steve chino Referred To Contact Gastroenterology Diagnoses Abnormal celiac antibody panel Procedures EGD Alondra Walls MD [facility] [place] [address] Referral ID Status Reason Start Date Expiration Date Visits Re quested Visits Authorized [id number] Closed 02/17/2013 08/16/2013 1 1 CTOR SOFTWARE Reason for Visit * Auth/Cert - Closed Specialty Diagnoses / Procedures Referred By Steve chino Referred To Contact Diagnoses Other and unspecified nonspecific immunological findings Procedures ENDOSCOPY GI UPPER DIAGNOSTIC Referral ID Status Reason Start Date Expiration Date Visits Re quested Visits Authorized [id number] Closed 1 1 Encounter Details Date Type Department Care Team (Latest Contact Info) Description 03/19/2013 7:27 AM DIRECTOR SOFTWARE - 03/19/2013 10:38 AM DIRECTOR SOFTWARE Hospital Encounter [facility] - Endoscopy [address] [place], [place] [id number] Alondra Walls MD [address] [place] [address] Surgery General Discharge Disposition: Home or Self Care Social History Tobacco Use Types Packs/Day Years Used Date Smoking Tobacco: Never Sex and Gender Information Value Date Recorded Sex Assigned at Not on file Gender Identity Not on file Sexual Orientation Not on file documented as of this encounter Last Filed Vital Signs Vital Sign Reading Time Taken Comments Blood Pressure 97/60 03/19/2013 10:30 AM DIRECTOR SOFTWARE Pulse 62 03/19/2013 10:30 AM DIRECTOR SOFTWARE Temperature 36.8 ??C (98.2 ??F) 03/19/2013 9:30 AM CS T Respiratory Rate 16 03/19/2013 10:3 0 AM DIRECTOR SOFTWARE Oxygen Saturation 100% 03/19/2013 10: 30 AM DIRECTOR SOFTWARE Inhaled Oxygen Concentration - - Weight 43.4 kg (95 lb 10.9 oz) 03/19/2013 8:21 A M DIRECTOR SOFTWARE Height 155 cm (5' 1.02 ) 03/19/2013 8:21 AM DIRECTOR SOFTWARE Body Mass Index 18.06 03/19/2013 8:21 AM DIRECTOR SOFTWARE Body Mass Index Percentile 11.09% 03/19/2013 8:2 1 AM DIRECTOR SOFTWARE Growth Chart: CDC (Girls, 2- 20 Years) documented in this encounter Discharge Summaries * Alondra Walls MD - 03/19/2013 9:24 AM CST Images from the original note were not included. SAME DAY SURGERY DISCHARGE SUMMARY Patient ID: Brandy Gallardo [id number] 17 y.o. 1995 Discharge Date: Discharge Diagnoses: 1. Abnormal celiac antibody panel 2. GERD without esophagitis Discharge Condition: Stable Discharge Medication: Please see Discharge Instructions for a complete list of medications. Discharge Procedure Orders DISCHARGE ACTIVITY RESTRICTIONS Your child has just completed a procedure requiring sedation. Do not leave your child unattended today. Although your child may be awake and alert at the time of discharge, the effects of the medication may be present for up to 4 - 6 hours, unless otherwise noted. Protect your child from falls. A quiet day is recommended. Patient should not drive a car or operate heavy machinery, use power tools or the stove to cook, or make legal decisions for 24 hours. GENERAL ANESTHESIA /IV SEDATION INSTRUCTIONS For the remainder of the day, plan to relax. A feeling of dizziness, light- headedness or drowsinessis not unusual. Move cautiously, fast movements can make this feeling worse. If you have been lyingdown, sit up slowly and pause briefly before standing. We strongly suggest that a responsible adultbe with you until tomorrow AM for your comfort and safety. DISCHARGE GENERAL INSTRUCTIONS Your throat may be slightly sore. This should disappear within 24 hours. Use of throat lozenges mayhelp. DISCHARGE GENERAL INSTRUCTIONS You may have cramping in the abdomen or feel slightly bloated because of air insterted during the procedure. This should pass shortly and should not cause any problems. DISCHARGE GENERAL INSTRUCTIONS You may have slight tenderness and/or redness at the intravenous medication site for 24 to 48 hours. You may apply a warm washcloth. DISCHARGE GENERAL INSTRUCTIONS Small traces of blood my be noted if biopsies are taken or polyps removed. DISCHARGE GENERAL INSTRUCTIONS If your child has any worsening of his/her condition, please call the GI office [phone]. Afterhours, call the exchange at [phone]. SPECIAL INSTRUCTIONS Please allow 10-14 days for biopsy results to be finalized. GI clinic will call you biopsy results.Follow up in 6 months Make appointment by calling GI office. Alondra Walls MD 03/19/2013 9:24 AM CTOR SOFTWARE documented in this encounter Discharge Instructions * Discharge Instructions* Catherine Langley RN - 03/19/2013 9:38 AM DIRECTOR SOFTWARE Discharge Instructions for: Brandy Gallardo Discharge Procedure Orders DISCHARGE ACTIVITY RESTRICTIONS Your child has just completed a procedure requiring sedation. Do not leave your child unattended today. Although your child may be awake and alert at the time of discharge, the effects of the medication may be present for up to 4 - 6 hours, unless otherwise noted. Protect your child from falls. A quiet day is recommended. Patient should not drive a car or operate heavy machinery, use power tools or the stove to cook, or make legal decisions for 24 hours. GENERAL ANESTHESIA /IV SEDATION INSTRUCTIONS For the remainder of the day, plan to relax. A feeling of dizziness, light- headedness or drowsinessis not unusual. Move cautiously, fast movements can make this feeling worse. If you have been lyingdown, sit up slowly and pause briefly before standing. We strongly suggest that a responsible adultbe with you until tomorrow AM for your comfort and safety. DISCHARGE GENERAL INSTRUCTIONS Your throat may be slightly sore. This should disappear within 24 hours. Use of throat lozenges mayhelp. DISCHARGE GENERAL INSTRUCTIONS You may have cramping in the abdomen or feel slightly bloated because of air insterted during the procedure. This should pass shortly and should not cause any problems. DISCHARGE GENERAL INSTRUCTIONS You may have slight tenderness and/or redness at the intravenous medication site for 24 to 48 hours. You may apply a warm washcloth. DISCHARGE GENERAL INSTRUCTIONS Small traces of blood my be noted if biopsies are taken or polyps removed. DISCHARGE GENERAL INSTRUCTIONS If your child has any worsening of his/her condition, please call the GI office [phone]. Afterhours, call the exchange at [phone]. SPECIAL INSTRUCTIONS Please allow 10-14 days for biopsy results to be finalized. GI clinic will call you biopsy results.Follow up in 6 months Make appointment by calling GI office. The following belonging have been returned to you Clothing Clothing: Yes Secured: Shirt;Pants;Jacket/Coat;Footwear Jewelry Jewelry: None Electronics Electronic Items: None Vision Glasses: Home Equipment/Assistive Devices Equipment with Patient: None Equipment At Home: None Home Medications Home Medications: None Miscellaneous Belongings Miscellaneous Items: None Monetary Monetary Items: None If your child has any worsening of his or her condition, please call your primary care doctor (or their exchange if after hours) or return to the ED if your primary care doctor cannot be reached. 03/19/2013 CTOR SOFTWARE * Discharge Instructions* Document, Scanned - 03/23/2013 9:11 PM DIRECTOR SOFTWARE CTOR SOFTWARE documented in this encounter Medications at Time of Discharge Medication Sig Dispensed Refills Start Date End Date Clobetasol Propionate (CLOBEX SPRAY EX)Indications:Pneumonia as needed 04/2015 topiramate (TOPAMAX) 25 MG tablet Take 1 Tab by mouth 2 times daily. Doctor visit before any further refills 60 Tab 2 12/20/2012 11/08/2013 documented as of this encounter H&P Notes * Alondra Walls MD - 03/19/2013 8:21 AM CST Surgical History and Physical Today's Date: 03/19/2013 Brandy Gallardo 17 y.o. female Date of Service: 03/19/2013 Planned Procedure: upper endoscopy Indication for Procedure: elevated celiac serology History of Present Illness 17 y/o F with h/o elevated celiac serology, Prescriptions prior to admission Medication Status Sig Dispense Refill ??? topiramate (TOPAMAX) 25 MG tablet Active Take 1 Tab by mouth 2 times daily. Doctor visit beforeany further refills 60 Tab 2 ??? Clobetasol Propionate (CLOBEX SPRAY EX) Active Allergies Allergen Reactions ??? Fish Allergy Rash and Swelling ??? Donatussin Urticaria Review of Systems Pertinent items are noted in HPI Exam Vitals: 03/19/13 0816 Pulse: 84 Temp: 98.6 ??F Resp: 16 SpO2: 100% General appearance: alert, cooperative, no distress Lungs: breath sounds normal and symmetric; no rales or wheezes Heart: regular rhythm, normal S1 and S2, without murmurs, gallops or rubs Abdomen: soft without mass, non-tender, with normal bowel sounds Extremities: no clubbing, cyanosis or edema Other pertinent exam: none Data Component Name 03/04/13 1319 WBC 11.2* HGB 12.7 HCT 38.0 PLTCOUNT 328 Component Name 03/04/13 1319 12/24/12 1542 SODIUM 141 138 POTASSIUM 3.7 3.9 CHLORIDE 106 105 CO2 21 19 BUN 11.4 7 CREATININE 0.64 0.60 GLUCOSE 85 74 CALCIUM 10.23 9.5 Assessment and Plan Risks, benefits and alternatives discussed with the patient, questions answered. Plan to perform above noted procedure. Alondra Walls MD CTOR SOFTWARE documented in this encounter Procedure Notes * Document, Scanned - 03/23/2013 9:11 PM CSTAssociated Order(s): PATHOLOGY/CYTOLOGY REPORT ORDER CTOR SOFTWARE * Alondra Walls MD - 03/19/2013 10:19 AM CSTAssociated Order(s): EGD CTOR SOFTWARE documented in this encounter Nursing Notes * Catherine Langley RN - 03/19/2013 10:17 AM CST Pt slow to wake up. Order received for Flumazenil from Dr. Godinez. Flumazenil given at 1010. Pt starting to open eyes. CTOR SOFTWARE documented in this encounter Miscellaneous Notes * Miscellaneous Scans - Document, Scanned - 03/23/2013 9:11 PM CST CTOR SOFTWARE * Miscellaneous Scans - Document, Scanned - 03/23/2013 9:11 PM CST CTOR SOFTWARE documented in this encounter Plan of Treatment Not on file documented as of this encounter Procedures Procedure Name Priority Date/Time Associated Diagnosis Comments PATHOLOGY/CYTOLOGY REPORT ORDER 03/23/2013 9:11 PM DIRECTOR SOFTWARE ENDOSCOPY GI UPPER DIAGNOSTIC 03/19/2013 5:00 PM DIRECTOR SOFTWARE Other And Unspecified Nonspecific Immunological Findings TISSUE TRANSGLUTAMINASE AB IGA STAT 03/19/2013 9:29 AM DIRECTOR SOFTWARE Abnormal celiac antibody panel IGA BLOOD STAT 03/19/2013 9:29 AM DIRECTOR SOFTWARE Abnormal celiac antibody panel VITAMIN D 25-HYDROXY STAT 03/19/2013 9:28 AM DIRECTOR SOFTWARE Abnormal celiac antibody panel HELICOBACTER PYLORI UREASE STAT 03/19/2013 9:17 AM DIRECTOR SOFTWARE Abnormal celiac antibody panel GERD without esophagitis PATHOLOGY TISSUE EXAM (STL) STAT 03/19/2013 9:15 AM DIRECTOR SOFTWARE Abnormal celiac antibody panel GERD without esophagitis EGD Routine 03/19/2013 8:53 AM DIRECTOR SOFTWARE Abnormal celiac antibody panel HCG URINE QUALITATIVE - POCT (IP) BEAKER URMILA 03/19/2013 8:00 AM DIRECTOR SOFTWARE documented in this encounter Results * PATHOLOGY/CYTOLOGY REPORT ORDER (03/23/2013 9:11 PM DIRECTOR SOFTWARE) Narrative 03/23/2013 9:11 PM DIRECTOR SOFTWARE Ordered by an unspecified provider. Transcriptions Document, Scanned - 03/23/2013 9:11 PM CST Scanned Document LAB - PATHOLOGY/CYTO LOGY ORDERABLES * (ABNORMAL) TISSUE TRANSGLUTAMINASE AB IGA (03/19/2013 9:29 AM DIRECTOR SOFTWARE) Tissue Transglutaminase (tTG) Ab, IgA 148(H) 0 - 19 Units 03/20/2013 12:38 PM DIRECTOR SOFTWARE [employer] Comment: INTERPRETIVE INFORMATION: Tissue Transglutaminase (tTG) Antibody, [...] BLOOD SPECIMEN / Unknown 03/19/2013 9:29 AM DIRECTOR SOFTWARE 03/19/2013 9:48 AM DIRECTOR SOFTWARE Alondra Walls MD LAB - SEROLOGY ORDER [facility] [employer] [address] [place] [address] * IGA BLOOD (03/19/2013 9:29 AM DIRECTOR SOFTWARE) Pathologist [facility] IgA 161 65 - 421 mg/dL 03/19/2013 10:12 AM [facility] Blood BLOOD SPECIMEN / Unknown 03/19/2013 9:29 AM DIRECTOR SOFTWARE 03/19/2013 9:48 AM DIRECTOR SOFTWARE Alondra Walls MD LAB - CHEMISTRY LIZYZ LEPE Performing Organization Address [facility] de Phone Number [facility] [address] [place] [address] * (ABNORMAL) VITAMIN D 25-HYDROXY (03/19/2013 9:28 AM [facility]) Pathologist [facility] Vitamin D, 25 Hydroxy 15.87(L) 30 - 100 ng/mL 03/19/2013 4:29 PM [facility] Blood BLOOD SPECIMEN / Unknown 03/19/2013 9:28 AM [facility] 03/19/2013 9:48 AM [facility] Narrative [facility] - 03/19/2013 4:29 PM [facility] Vitamin D Status: ?Deficiency ? <20 ? ng/mL ?Insufficiency ?? 20-30 ??ng/mL ?Sufficiency ? 30-100 ng/mL ?Toxicity ? >100 ?ng/mL Alondra Walls MD LAB - CHEMISTRY LIZZY LEPE Performing Organization Address [facility] Co de Phone Number [facility] [address] [place] [address] * HELICOBACTER PYLORI UREASE (03/19/2013 9:17 AM [facility]) Pathologist [facility] Helicobacter pylori Urease Initial Negative Negative 03/20/2013 10:27 AM [facility] Helicobacter pylori Urease Final Negative Negative 03/20/2013 10:27 AM [facility] Microbiology GASTRIC ANTRAL BIOPSY SPECIMEN / Unknown 03/19/2013 9:17 AM DIRECTOR SOFTWARE 03/19/2013 9:48 AM DIRECTOR SOFTWARE Alondra Walls MD LAB - MICROBIOLOGY O RDERABLES [facility] [place] [address] * GROSS + MICRO EXAM (STL) (03/19/2013 9:15 AM DIRECTOR SOFTWARE) Case Report Surgical Pathology Report ? Case: [id number] ? Authorizing Provider: ??Alondra Walls MD ? Ordering Provider: ?? Alondra Walls MD ? Ordering Location: ? [facility] ?Collected: ? 03/19/2013 ??9:15 AM ? Pathologist: ? Harpreet Jj MD ?Received: ?03/19/2013 ??9:55 AM ?Signed Out: ?03/24/2013 10:11 AM ? (Addend, F) ? 03/20/2013 10:26 PM (Final) ? Specimens: ?? A) - Duodenum ? B) - Stomach ? C) - Esophagus, Mid ? D) - Esophagus, Distal ? 03/24/2013 10:11 AM [facility] Addendum 1 D) 1 GMS. ?? GMS staining of the esophagus biopsy is negative for fungi. ??(DB/scs) 03/24/2013 10:11 AM [facility] Addendum electronically signed by Harpreet [...] reported in an addendum. 03/24/2013 10:11 AM [facility] Clinical History The patient is a 17-year-old girl with weight loss and elevated celiac serology who underwent upper endoscopy. The findings were erythema, mild nodularity, and scalloping in the duodenum. 03/24/2013 10:11 AM [facility] Gross Description The specimens are [...] toto as D1. ??(CT/vr) 03/24/2013 10:11 AM [facility] Microscopic Description A) 3 H&E; [...] few intraepithelial neutrophils. ??(DB/vr) 03/24/2013 10:11 AM [facility] Disclaimer The performance characteristics of all immunohistochemical and indirect ??immunofluorescence stains (if any) cited in this report were determined by the [facility] of [facility] (immunohistochemistry ) or the [facility] of [facility] (indirect immunofluorescence) in compliance with CLIA `88 regulations. ??Some of these tests rely on the use of analyte-specific reagents and are subject to specific labeling requirements by the FDA. ??Such tests were developed by the ??[facility] of [facility] or the [facility] of [facility] and have not been cleared or approved by the FDA. ??The FDA has determined that such clearance or approval is not necessary. ??These tests are used for clinical purposes and should not be regarded as investigational or for research. ? This case has been personally reviewed and interpreted by the attending (teaching) pathologist. 03/24/2013 10:11 AM DIRECTOR SOFTWARE [facility] Synoptic Report 03/24/2013 10:11 AM DIRECTOR SOFTWARE [facility] Pathology/Cytology PART OF DUODENUM / Unknown 03/19/2013 9:15 AM DIRECTOR SOFTWARE 03/19/2013 9:55 AM DIRECTOR SOFTWARE Miscellaneous samples (specimen) ENTIRE STOMACH / Unknown 03/19/2013 9:15 AM DIRECTOR SOFTWARE 03/19/2013 9:55 AM DIRECTOR SOFTWARE Miscellaneous samples (specimen) REGION OF ESOPHAGUS / Unknown 03/19/2013 9:15 AM DIRECTOR SOFTWARE 03/19/2013 9:55 AM DIRECTOR SOFTWARE Miscellaneous samples (specimen) REGION OF ESOPHAGUS / Unknown 03/19/2013 9:15 AM DIRECTOR SOFTWARE 03/19/2013 9:55 AM DIRECTOR SOFTWARE Alondra Walls MD LAB - PATHOLOGY/CYTO LOGY ORDERABLES Performing Organization Address City/State/[facility] Phone Number [facility] [address] [place] [address] * EGD (03/19/2013 8:53 AM DIRECTOR SOFTWARE) Report Endoscopy POC __ _ Patient Name: Brandy Gallardo ?Gender: Female ?Date of : 1995 Age: 17 ? Admit Type: Outpatient Attending MD: Alondra Walls, ? Order #: [id number] __ _ Procedure: ? Upper GI endoscopy [...] Procedure Code(s): ? --- Professional --- ? 02266, Upper gastrointestinal endoscopy including esophagus, stomach, ? and either the duodenum and/or jejunum as appropriate; with biopsy, ? single or multiple ? --- Technical --- ? 03844, Upper gastrointestinal endoscopy including esophagus, stomach, ? and either the duodenum and/or jejunum as appropriate; with biopsy, ? single or multiple Diagnosis Code(s): ? --- Professional --- ? 795.79, Other and unspecified nonspecific immunological findings ? --- Technical --- ? 795.79, Other and unspecified nonspecific immunological findings CPT (R) 2012 [employer]. All Rights Reserved. The codes documented in this report are preliminary and upon liquor clerk review may be revised to meet current compliance requirements. Dr. Alondra Walls Alondra Walls, 03/19/2013 9:24 AM This report has been signed electronically. Number of Addenda: 0 Note Initiated On: 03/19/2013 8:53 AM Procedure Date: ? 03/19/2013 8:53:02 AM ? This report has been signed electronically. [facility] 03/19/2013 8:53 AM DIRECTOR SOFTWARE Narrative [facility] - 03/20/2013 1:27 PM DIRECTOR SOFTWARE Procedure Note Alondra Walls MD - 03/19/2013 10:19 AM CST Alondra Walls MD GI PROCEDURE ORDERAB LES Performing Organization Address City/[facility]/ZIP Co de Phone Number [facility] [address] [place] [address] * HCG URINE QUALITATIVE - POCT (IP) BEAKER (03/19/2013 8:00 AM DIRECTOR SOFTWARE) HCG Qual Urine Negative Negative [facility] POCT TEST[facility] QC Verified YES Yes [facility] PO CT TESTING Urine specimen (specimen) URINE / Unknown 03/19/2013 8:00 AM DIRECTOR SOFTWARE Alondra Walls MD LAB - POINT OF CARE ORDERABLES Performing Organization Address [facility] de Phone Number [facility] [address] [place] [address] documented in this encounter Visit Diagnoses Diagnosis Abnormal celiac antibody panel- Primary Other and unspecified nonspecific immunological findings GERD without esophagitis Esophageal reflux documented in this encounter Administered Medications Inactive Administered Medications - up to 3 most recent administrations Medication Order MAR Action Action Date Dose Rate Site flumazenil (ROMAZICON) injection 0.3 mg 0.3 mg (0.75512 mg/kg), Intravenous, ONCE, 1 dose, On Betty 03/19/13 at 1000 $ Given 03/19/2013 10:09 AM DIRECTOR SOFTWARE 0.3 mg isolyte-S pH 7.4 infusion 200 mL/hr, Intravenous, POST-OP CONTINUOUS, Starting on Betty 03/19/13 at 0930, Until Betty 03/19/13 at 1202, PACU Current Rate 03/19/2013 9:34 AM DIRECTOR SOFTWARE 200 mL/hr 200 mL/hr lidocaine (LMX 4) 4 % cream Topical, ONCE, 1 dose, On Betty 03/19/13 at 0830, Apply to *bilateral hand iv sites . WASTE DISPOSAL INSTRUCTIONS: Black Bin Disposal required. $ Given 03/19/2013 7:50 AM DIRECTOR SOFTWARE 1 tube documented in this encounter Active and Recently Administered Medications Times are shown in DIRECTOR SOFTWARE. Scheduled Medication Order 03/17/2013 03/18/2013 03/19/2013 flumazenil (ROMAZICON) injection 0.3 mg (COMPLETED) 0.3 mg (0.20510 mg/kg), Intravenous, ONCE, 1 dose, On Betty 03/19/13 at 1000 1009 ($ Given - Prov ider: Catherine Langley, GAVINO) lidocaine (LMX 4) 4 % cream (COMPLETED) Topical, ONCE, 1 dose, On Betty 03/19/13 at 0830, Apply to *bilateral hand iv sites . WASTE DISPOSAL INSTRUCTIONS: Black Bin Disposal required. 0750 ($ Given - Prov ider: Vilma Morel RN) Continuous Medication Order 03/17/2013 03/18/2013 03/19/2013 isolyte-S pH 7.4 infusion (CANCELED) 200 mL/hr, Intravenous, POST-OP CONTINUOUS, Starting on Betty 03/19/13 at 0930, Until Betty 03/19/13 at 1202, PACU 0934 (Current Rate - Provider: Catherine Langley RN)1030 (Stopped - Provider: Catherine Langley, GAVINO) documented in this encounter
--- OUTSIDE RECORDS SUMMARY | 2024-04-25 11:11 | XMS_ITS | Encounter Summary ---
Author Organization [facility] Address [address] [place] [address] Care Team Providers Care Rental Car Porter Name Role Phone Unavailable Primary Care Provider Unavailabl e Reason for Visit * Reason Comments Refill Request Encounter Details Date Type Department Care Team (Late st Contact Info) Description 08/17/2012 Refill [facility] - Pediatrics [address] [place] [phone] Angie Sung MD [address] [place] [address] [phone] Refill Request Social History Tobacco [...]
--- OUTSIDE RECORDS SUMMARY | 2024-04-25 11:11 | XMS_ITS | Encounter Summary ---
Author Organization [facility] Address [address] [place] [address] Care Team Providers Care Eye Technician Name Role Phone Unavailable Primary Care Provider Unavailabl e Reason for Visit * Reason Onset Date Comments Update 03/04/2013 Encounter Details Date Type Department Care Team (Late st Contact Info) Description 03/04/2013 Telephone [facility] - Pediatrics [address] [place] [phone] Shreya Field MD [address] [phone] Update Social History Tobacco Use Types Packs/Day Years Used Date Smoking Tobacco: Never Assessed Sex and Gender Information Value Date Recorded Sex Assigned at Not on file Gender Identity Not on file Sexual Orientation Not on file documented as of this encounter Miscellaneous Notes * Telephone Encounter - Shreya Field MD - 03/04/2013 9:10 AM CST Dad aware of the labs ordered and CXR ordered. T INSPECTOR * Telephone Encounter - Florinda Vasquez RN - 03/04/2013 9:06 AM PLANT INSPECTOR Brandy Gallardo is a 17 y.o. female who was seen in office this week with cough. Father says pt is not feeling any better. Up all noc coughing. Father says pt complaining of chest hurting now, sore throat, headache. Temps up and down, Up to 101.0. Laying around. Forcing her to drink water. T INSPECTOR documented in this encounter Plan of Treatment Scheduled Orders Name Type Priority Associated Diagnoses Orde r Schedule VIRAL CULTURE RESPIRATORY Microbiology Routine Cough Ordered: 03/04/2013 CULTURE BORDETELLA PERTUSSIS Microbiology Routine Cough Ordered: 03/04/2013 BORDETELLA PERTUSSIS/PARAPERTUSIS PCR Microbiology Routine Cough Ordered: 03/04/2013 MONONUCLEOSIS SCREEN REFLX EBV ACUTE (CECIL) Lab Routine Cough Ordered: 03/04/2013 documented as of this encounter Visit Diagnoses Diagnosis Cough- Primary documented in this encounter
--- OUTSIDE RECORDS SUMMARY | 2024-04-25 11:11 | XMS_ITS | Encounter Summary ---
Author Organization [facility] Address [address] [place] [place] [address] Care Team Providers Care Beautician Apprentice Name Role Phone Unavailable Primary Care Provider Unavailabl e Reason for Visit * Reason Onset Date Comments Headache 12/03/2013 Encounter Details Date Type Department Care Team (Late st Contact Info) Description 12/03/2013 Telephone [facility] - Pediatrics [address] [place] [phone] Angie Sung MD [address] [place] [phone] Headache Social History Tobacco Use Types Packs/Day Years Used Date Smoking Tobacco: Never Sex and Gender Information Value Date Recorded Sex Assigned at Not on file Gender Identity Not on file Sexual Orientation Not on file documented as of this encounter Miscellaneous Notes * Telephone Encounter - Adina Seo RN - 12/03/2013 4:53 PM CDT Brandy Gallardo is a 18 y.o. female ; mother states she had a headache 2 days ago which got better, but today woke with a more severe migraine and took prescription medicine. This evening, she is crying and upset and states headache is worse and feeling nauseated. Mother gave her 2 Excedrin and she is feeling a bit better. Discussed with Dr. Sung who states she can have an Aleve 4-5 hours after taking the Excedrin. If this is not helpful, recommend her to go to ER to get some relief. documented in this encounter Plan of Treatment Not on file documented as of this encounter Visit Diagnoses Not on filedocumented in this encounter
--- OUTSIDE RECORDS SUMMARY | 2024-04-25 11:11 | XMS_ITS | Encounter Summary ---
Author Organization [facility] Address [address] [place] [address] Care Team Providers Care Pilot Boat Operator Name Role Phone Unavailable Primary Care Provider Unavailabl e Reason for Visit * Reason Comments Bladder infection Encounter Details Date Type Department Care Team (Late st Contact Info) Description 01/28/2013 10:45 AM CDT Office Visit [facility] - Pediatrics [address] [place] [phone] Angie Sung MD [address] [place] [phone] Vaginal yeast infection (Primary Dx); Dysuria Social History Tobacco Use Types Packs/Day Years Used Date Smoking Tobacco: Never Assessed Sex and Gender Information Value Date Recorded Sex Assigned at Not on file Gender Identity Not on file Sexual Orientation Not on file documented as of this encounter Last Filed Vital Signs Vital Sign Reading Time Taken Comments Blood Pressure 95/60 01/28/2013 11:06 AM CDT Pulse 68 01/28/2013 11:06 AM CDT Temperature - - Respiratory Rate - - Oxygen Saturation - - Inhaled Oxygen Concentration - - Weight 47.6 kg (105 lb) 01/28/2013 11:06 AM CDT Height 152.4 cm (5') 01/28/2013 11:06 AM CDT Body Mass Index 20.51 01/28/2013 11:06 AM CDT Body Mass Index Percentile 44.06% 01/28/2013 11: 06 AM CDT Growth Chart: [facility] (Girls, 2- 20 Years) documented in this encounter Progress Notes * Angie Sung MD - 01/28/2013 11:48 AM CDT Brandy Gallardo, 17 y.o., female, here for evaluation of pain with urination, itching and burning invaginal area. Symptoms started a few months ago, and she had taken OTC remedies with temporary relief. Fever:No Dysuria:Yes Urinary Frequency:Yes Urinary Urgency:No Abdominal Pain:No, Back Pain:No Vomiting:No, Gross Hematuria:No She has not had any discharge. Previous hx of UTI:No PE: BP 95/60 Pulse 68 Wt 47.628 kg (105 lb) BMI 20.51 kg/m2 Alert NAD Heart: normal S1, S2, no murmurs or gallops. Lungs: Clear to auscultation and Normal breath sounds bilaterally Abdomen:Normal scaphoid appearance, soft, non-tender, without organ enlargement or masses. : inner labia majora and labia minor are red, irritated. No discharge seen Skin: 4 circular red, flaky lesions to right lower [place]. Urine dipstick Results:1+ leuk, 50 blood Impression: Vaginal yeast infection 2. dysuria Plan: Rx:diflucan as per orders May use topical OTC medication for itching. Call if not resolving documented in this encounter Plan of Treatment Not on file documented as of this encounter Procedures Procedure Name Priority Date/Time Associated Diagnosis Comments URINALYSIS - POINT OF CARE Routine 01/28/2013 11:30 AM CDT Dysuria documented in this encounter Results * (ABNORMAL) URINALYSIS - POINT OF CARE (01/28/2013 11:30 AM CDT) Clarity UA POCT clear Color UA POCT dark imani Leukocyte UA 1+ Negative Nitrite UA POCT negative Negative Urobilinogen UA POCT negative 0.1 - 1.0 EU/dL Protein UA POCT negative Negative pH UA 5 5.0 - 8.0 pH units Blood UA about 50 Negative Specific Left Hand UA POCT 1.025 1.002 - 1.030 Ketone UA negative Negative Bilirubin UA POCT negative Negative Glucose UA negative Negative Urine specimen (specimen) URINE / Unknown 01/28/2013 11:30 AM CDT Angie Sung MD LAB - POINT OF CARE ORDERABLES documented in this encounter Visit Diagnoses Diagnosis Vaginal yeast infection- Primary Candidiasis of vulva and vagina Dysuria documented in this encounter
--- OUTSIDE RECORDS SUMMARY | 2024-04-25 11:11 | XMS_ITS | Encounter Summary ---
Author Organization [facility] Address [address] [place] [address] Care Team Providers Care Food Service Attendant Name Role Phone Unavailable Primary Care Provider Unavailabl e Reason for Visit * Reason Comments Urine Check Encounter Details Date Type Department Care Team (Late st Contact Info) Description 09/11/2012 3:10 PM CDT Clinical Support [facility] - Pediatrics [address] [place] [phone] Hematuria Social History Tobacco Use Types Packs/Day Years Used Date Smoking Tobacco: Never Assessed Sex and Gender Information Value Date Recorded Sex Assigned at Not on file Gender Identity Not on file Sexual Orientation Not on file documented as of this encounter Progress Notes * Florinda Vasquez RN - 09/11/2012 3:22 PM CDT Brandy Gallardo is a 16 y.o. female presents to office today by self for UA. Previous UA showed blood. Pt says she feels much better than she did at the previous OV. Dr Sung aware of UA results today. documented in this encounter Plan of Treatment Not on file documented as of this encounter Procedures Procedure Name Priority Date/Time Associated Diagnosis Comments URINALYSIS - POINT OF CARE Routine 09/11/2012 3:20 PM CDT Hematuria documented in this encounter Results * URINALYSIS - POINT OF CARE (09/11/2012 3:20 PM CDT) Clarity UA POCT clear Color UA POCT imani Leukocyte UA 1+ Negative Nitrite UA POCT negative Negative Urobilinogen UA POCT negative 0.1 - 1.0 EU/dL Protein UA POCT negative Negative pH UA 6 5.0 - 8.0 pH units Blood UA negative Negative Specific [place] UA POCT 1.020 1.002 - 1.030 Ketone UA negative Negative Bilirubin UA POCT negative Negative Glucose UA negative Negative Urine specimen (specimen) URINE / Unknown 09/11/2012 3:20 PM CDT Angie Sung MD LAB - POINT OF CARE ORDERABLES documented in this encounter Visit Diagnoses Diagnosis Hematuria- Primary Hematuria, unspecified documented in this encounter
--- OUTSIDE RECORDS SUMMARY | 2024-04-25 11:11 | XMS_ITS | Encounter Summary ---
Author Organization [facility] Address [address] [place] [address] Care Team Providers Care Tripper Name Role Phone Unavailable Primary Care Provider Unavailabl e Reason for Visit * Reason Onset Date Comments Refill Request 12/01/2012 Encounter Details Date Type Department Care Team (Late st Contact Info) Description 12/01/2012 Telephone [facility] - Pediatrics [address] [place] [phone] Angie Sung MD [address] [place] [phone] Refill Request Social History Tobacco Use Types Packs/Day Years Used Date Smoking Tobacco: Never Assessed Sex and Gender Information Value Date Recorded Sex Assigned at Not on file Gender Identity Not on file Sexual Orientation Not on file documented as of this encounter Miscellaneous Notes * Telephone Encounter - Angie Sung MD - 12/01/2012 11:41 AM CDT Needs visit before any further refills * Telephone Encounter - Pritesh Obrien - 12/01/2012 10:38 AM CDT Pharmacy wanting to refill her TOPIRAMATE 25MG TABLETS -QTY 60-LAST FILLED 08/21/12 documented in this encounter Plan of Treatment Not on file documented as of this encounter Visit Diagnoses Not on filedocumented in this encounter
--- OUTSIDE RECORDS SUMMARY | 2024-04-25 11:11 | XMS_ITS | Encounter Summary ---
Author Organization [facility] Address [address] [place] [address] Care Team Providers Care Ediphone Operator Name Role Phone Unavailable Primary Care Provider Unavailabl e Reason for Visit * Auth/Cert - Closed Specialty Diagnoses / Procedures Referred By Steve t Referred To Contact Diagnoses Other and unspecified nonspecific immunological findings Procedures ENDOSCOPY GI UPPER DIAGNOSTIC Referral ID Status Reason Start Date Expiration Date Visits Re quested Visits Authorized [id number] Closed 1 1 Encounter Details Date Type Department Care Team (Late st Contact Info) Description 03/19/2013 9:00 AM SILVER SPRAY WORKER - 03/19/2013 9:45 AM [facility] Surgery [facility] - Endoscopy [address] [place] [address] Alondra Walls MD [address] [place] [id number] ENDOSCOPY GI UPPER DIAGNOSTIC Surgery Details Date/Time Status Location OR Service Patient Class Case Class Case Type Trauma Case? 03/19/2013 9:00 AM Posted [facility] ENDO Endo 03 Gastroenterology Surgery Day Care Elective > 5 days Panel 1 Procedure LRB Anes Op Region Wound Class Comments ENDOSCOPY GI UPPER DIAGNOSTIC General Clean Contaminated Surgeon Surgeon Role Service Panel Alondra Walls MD Primary Gastroenterology 1 documented in this encounter Social History Tobacco Use Types Packs/Day Years Used Date Smoking Tobacco: Never Sex and Gender Information Value Date Recorded Sex Assigned at Not on file Gender Identity Not on file Sexual Orientation Not on file documented as of this encounter Last Filed Vital Signs Vital Sign Reading Time Taken Comments Blood Pressure 97/60 03/19/2013 10:30 AM SILVER SPRAY WORKER Pulse 62 03/19/2013 10:30 AM SILVER SPRAY WORKER Temperature 36.8 ??C (98.2 ??F) 03/19/2013 9:30 AM CS T Respiratory Rate 16 03/19/2013 10:3 0 AM SILVER SPRAY WORKER Oxygen Saturation 100% 03/19/2013 10: 30 AM SILVER SPRAY WORKER Inhaled Oxygen Concentration - - Weight 43.4 kg (95 lb 10.9 oz) 03/19/2013 8:21 A M SILVER SPRAY WORKER Height 155 cm (5' 1.02 ) 03/19/2013 8:21 AM SILVER SPRAY WORKER Body Mass Index 18.06 03/19/2013 8:21 AM SILVER SPRAY WORKER Body Mass Index Percentile 11.09% 03/19/2013 8:2 1 AM SILVER SPRAY WORKER Growth Chart: CDC (Girls, 2- 20 Years) documented in this encounter Discharge Summaries * Alondra Walls MD - 03/19/2013 9:24 AM CST Images from the original note were not included. SAME DAY SURGERY DISCHARGE SUMMARY Patient ID: Brandy Gallardo [id number] 17 y.o. 1995 Discharge Date: Discharge Diagnoses: [...] his/her condition, please call the GI office [phone]. Afterhours, call the exchange at [phone]. SPECIAL INSTRUCTIONS Please allow 10-14 days for biopsy results to be finalized. GI clinic will call you biopsy results.Follow up in 6 months Make appointment by calling GI office. Alondra Walls MD 03/19/2013 9:24 AM ER SPRAY WORKER documented in this encounter Discharge Instructions * Discharge Instructions* Catherine Langley RN - 03/19/2013 9:38 AM SILVER SPRAY WORKER Discharge Instructions for: Brandy Vasquez Gallardo Discharge Procedure Orders DISCHARGE ACTIVITY RESTRICTIONS [...] his/her condition, please call the GI office [phone]. Afterhours, call the exchange at [phone]. SPECIAL INSTRUCTIONS Please allow 10-14 days for [...] primary care doctor cannot be reached. 03/19/2013 ER SPRAY WORKER * Discharge Instructions* Document, Scanned - 03/23/2013 9:11 PM SILVER SPRAY WORKER ER SPRAY WORKER documented in this encounter Medications at Time [...] perform above noted procedure. Alondra Walls MD ER SPRAY WORKER documented in this encounter Procedure Notes * Document, Scanned - 03/23/2013 9:11 PM CSTAssociated Order(s): PATHOLOGY/CYTOLOGY REPORT ORDER ER SPRAY WORKER * Alondra Walls MD - 03/19/2013 10:19 AM CSTAssociated Order(s): EGD ER SPRAY WORKER documented in this encounter Nursing Notes * Catherine Langley, GAVINO - 03/19/2013 10:17 AM CST Pt slow to wake up. Order received for Flumazenil from Dr. Godinez. Flumazenil given at 1010. Pt starting to open eyes. ER SPRAY WORKER documented in this encounter Miscellaneous Notes * Miscellaneous Scans - Document, Scanned - 03/23/2013 9:11 PM CST ER SPRAY WORKER * Miscellaneous Scans - Document, Scanned - 03/23/2013 9:11 PM CST ER SPRAY WORKER documented in this encounter Plan of Treatment Not on file documented as of this encounter Procedures Procedure Name Priority Date/Time Associated Diagnosis Comments PATHOLOGY/CYTOLOGY REPORT ORDER 03/23/2013 9:11 PM SILVER SPRAY WORKER ENDOSCOPY GI UPPER DIAGNOSTIC 03/19/2013 5:00 PM SILVER SPRAY WORKER Other And Unspecified Nonspecific Immunological Findings TISSUE TRANSGLUTAMINASE AB IGA STAT 03/19/2013 9:29 AM SILVER SPRAY WORKER Abnormal celiac antibody panel IGA BLOOD STAT 03/19/2013 9:29 AM SILVER SPRAY WORKER Abnormal celiac antibody panel VITAMIN D 25-HYDROXY STAT 03/19/2013 9:28 AM SILVER SPRAY WORKER Abnormal celiac antibody panel HELICOBACTER PYLORI UREASE STAT 03/19/2013 9:17 AM SILVER SPRAY WORKER Abnormal celiac antibody panel GERD without esophagitis PATHOLOGY TISSUE EXAM (STL) STAT 03/19/2013 9:15 AM SILVER SPRAY WORKER Abnormal celiac antibody panel GERD without esophagitis EGD Routine 03/19/2013 8:53 AM SILVER SPRAY WORKER Abnormal celiac antibody panel HCG URINE QUALITATIVE - POCT (IP) BEAKER URMILA 03/19/2013 8:00 AM SILVER SPRAY WORKER documented in this encounter Results * PATHOLOGY/CYTOLOGY REPORT ORDER (03/23/2013 9:11 PM SILVER SPRAY WORKER) Narrative 03/23/2013 9:11 PM SILVER SPRAY WORKER Ordered by an unspecified provider. Transcriptions Document, Scanned - 03/23/2013 9:11 PM CST Scanned Document LAB - PATHOLOGY/CYTO LOGY ORDERABLES * (ABNORMAL) TISSUE TRANSGLUTAMINASE AB IGA (03/19/2013 9:29 AM SILVER SPRAY WORKER) Tissue Transglutaminase (tTG) Ab, IgA 148(H) 0 - 19 Units 03/20/2013 12:38 PM SILVER SPRAY WORKER [facility] Comment: INTERPRETIVE INFORMATION: Tissue Transglutaminase (tTG) Antibody, [...] BLOOD SPECIMEN / Unknown 03/19/2013 9:29 AM SILVER SPRAY WORKER 03/19/2013 9:48 AM SILVER SPRAY WORKER Alondra Walls MD LAB - SEROLOGY ORDER [facility] [address] [place] [address] * IGA BLOOD (03/19/2013 9:29 AM SILVER SPRAY WORKER) IgA 161 65 - 421 mg/dL 03/19/2013 10:12 AM SILVER SPRAY WORKER [facility] Blood BLOOD SPECIMEN / Unknown 03/19/2013 9:29 AM SILVER SPRAY WORKER 03/19/2013 9:48 AM SILVER SPRAY WORKER Alondra Walls MD LAB - CHEMISTRY LIZZY LEPE Performing Organization Address [facility] Co de Phone Number [facility] [address] [place] [address] * (ABNORMAL) VITAMIN D 25-HYDROXY (03/19/2013 9:28 AM SILVER SPRAY WORKER) Vitamin D, 25 Hydroxy 15.87(L) 30 - 100 ng/mL 03/19/2013 4:29 PM SILVER SPRAY WORKER [facility] Blood BLOOD SPECIMEN / Unknown 03/19/2013 9:28 AM SILVER SPRAY WORKER 03/19/2013 9:48 AM SILVER SPRAY WORKER Narrative [facility] - 03/19/2013 4:29 PM SILVER SPRAY WORKER Vitamin D Status: ?Deficiency ? <20 ? ng/mL ?Insufficiency ?? 20-30 ??ng/mL ?Sufficiency ? 30-100 ng/mL ?Toxicity ? >100 ?ng/mL Alondra Walls MD LAB - CHEMISTRY LIZZY LEPE Performing Organization Address City/[facility] Co de Phone Number [facility] [address] [place] [address] * HELICOBACTER PYLORI UREASE (03/19/2013 9:17 AM SILVER SPRAY WORKER) Helicobacter pylori Urease Initial Negative Negative 03/20/2013 10:27 AM SILVER SPRAY WORKER [facility] Helicobacter pylori Urease Final Negative Negative 03/20/2013 10:27 AM SILVER SPRAY WORKER [facility] Microbiology GASTRIC ANTRAL BIOPSY SPECIMEN / Unknown 03/19/2013 9:17 AM SILVER SPRAY WORKER 03/19/2013 9:48 AM SILVER SPRAY WORKER Alondra Walls MD LAB - MICROBIOLOGY O RDERABLES [facility] [address] [place] [address] * GROSS + MICRO EXAM (STL) (03/19/2013 9:15 AM SILVER SPRAY WORKER) Case Report Surgical Pathology Report ? Case: [id number] ? Authorizing Provider: ??Alondra Walls MD ? [...] - Esophagus, Distal ? 03/24/2013 10:[address] [facility] Addendum 1 D) 1 GMS. ?? GMS staining of the esophagus biopsy is negative for fungi. ??(DB/scs) 03/24/2013 10:[address] [facility] Addendum electronically signed by Harpreet Jj [...] reported in an addendum. 03/24/2013 10:[address] [facility] Clinical History The patient is a 17-year-old girl with weight loss and elevated celiac serology who underwent upper endoscopy. The findings were erythema, mild nodularity, and scalloping in the duodenum. 03/24/2013 10:[address] [facility] Gross Description The specimens are received [...] toto as D1. ??(CT/vr) 03/24/2013 10:[address] [facility] Microscopic Description A) 3 H&E; B) [...] few intraepithelial neutrophils. ??(DB/vr) 03/24/2013 10:[address] [facility] Disclaimer The performance characteristics of all immunohistochemical and indirect ??immunofluorescence stains (if any) cited in this report were determined by the Histopathology Laboratory of [facility] (immunohistochemistry ) or the Histology Laboratory of [facility] (indirect immunofluorescence) in compliance with CLIA `88 regulations. ??Some of these tests rely on the use of analyte-specific reagents and are subject to specific labeling requirements by the FDA. ??Such tests were developed by the ??[facility] of [facility] or the Histology Laboratory of [facility] and have not been cleared or approved by the FDA. ??The FDA has determined that such clearance or approval is not necessary. ??These tests are used for clinical purposes and should not be regarded as investigational or for research. ? This case has been personally reviewed and interpreted by the attending (teaching) pathologist. 03/24/2013 10:[address] [facility] Synoptic Report 03/24/2013 10:11 AM SILVER SPRAY WORKER [facility] Pathology/Cytology PART OF DUODENUM / Unknown 03/19/2013 9:15 AM SILVER SPRAY WORKER 03/19/2013 9:55 AM SILVER SPRAY WORKER Miscellaneous samples (specimen) ENTIRE STOMACH / Unknown 03/19/2013 9:15 AM SILVER SPRAY WORKER 03/19/2013 9:55 AM SILVER SPRAY WORKER Miscellaneous samples (specimen) REGION OF ESOPHAGUS / Unknown 03/19/2013 9:15 AM SILVER SPRAY WORKER 03/19/2013 9:55 AM SILVER SPRAY WORKER Miscellaneous samples (specimen) REGION OF ESOPHAGUS / Unknown 03/19/2013 9:15 AM SILVER SPRAY WORKER 03/19/2013 9:55 AM SILVER SPRAY WORKER Alondra Walls MD LAB - PATHOLOGY/CYTO LOGY ORDERABLES Performing Organization Address City/State/[facility] Co de Phone Number [facility] [address] [facility] [place] [address] * EGD (03/19/2013 8:53 AM SILVER SPRAY WORKER) Report Endoscopy POC __ _ Patient Name: Brandy Gallardo ?Gender: Female ?Date of : 1995 Age: 17 ? Admit Type: Outpatient Attending MD: Alondra Walls, ? Order #: [id number] __ _ Procedure: ? Upper GI endoscopy [...] Procedure Code(s): ? --- Professional --- ? 03587, Upper gastrointestinal endoscopy including esophagus, stomach, ? and either the duodenum and/or jejunum as appropriate; with biopsy, ? single or multiple ? --- Technical --- ? 82316, Upper gastrointestinal endoscopy including esophagus, stomach, ? and either the duodenum and/or jejunum as appropriate; with biopsy, ? single or multiple Diagnosis Code(s): ? --- Professional --- ? 795.79, Other and unspecified nonspecific immunological findings ? --- Technical --- ? 795.79, Other and unspecified nonspecific immunological findings CPT (R) 2012 [employer]. All Rights Reserved. The codes documented in this report are preliminary and upon orthopedic coder review may be revised to meet current compliance requirements. Dr. Alondra Walls Alondra Walls, 03/19/2013 9:24 AM This report has been signed electronically. Number of Addenda: 0 Note Initiated On: 03/19/2013 8:53 AM Procedure Date: ? 03/19/2013 8:53:02 AM ? This report has been signed electronically. [facility] 03/19/2013 8:53 AM SILVER SPRAY WORKER Narrative [facility] - 03/20/2013 1:27 PM SILVER SPRAY WORKER Procedure Note Alondra Walls MD - 03/19/2013 10:19 AM CST Alondra Walls MD GI PROCEDURE ORDERAB LES Performing Organization Address [facility] Co de Phone Number [facility] [address] [place] [address] * HCG URINE QUALITATIVE - POCT (IP) BEAKER (03/19/2013 8:00 AM SILVER SPRAY WORKER) HCG Qual Urine Negative Negative [facility] POCT TESTING QC Verified YES Yes [facility] PO CT TESTING Urine specimen (specimen) URINE / Unknown 03/19/2013 8:00 AM SILVER SPRAY WORKER Alondra Walls MD LAB - POINT OF CARE ORDERABLES Performing Organization Address [facility] de Phone Number [facility] PO[facility] TEST[facility] [address] [place] [address] documented in this encounter Visit Diagnoses Diagnosis Abnormal celiac antibody panel- Primary Other and unspecified nonspecific immunological findings GERD without esophagitis Esophageal reflux Other and unspecified nonspecific immunological findings documented in this encounter Administered Medications Inactive Administered Medications - up to 3 most recent administrations Medication Order MAR Action Action Date Dose Rate Site flumazenil (ROMAZICON) injection 0.3 mg 0.3 mg (0.76586 mg/kg), Intravenous, ONCE, 1 dose, On Betty 03/19/13 at 1000 $ Given 03/19/2013 10:09 AM SILVER SPRAY WORKER 0.3 mg isolyte-S pH 7.4 infusion 200 mL/hr, Intravenous, POST-OP CONTINUOUS, Starting on Betty 03/19/13 at 0930, Until Betty 03/19/13 at 1202, PACU Current Rate 03/19/2013 9:34 AM SILVER SPRAY WORKER 200 mL/hr 200 mL/hr lidocaine (LMX 4) 4 % cream Topical, ONCE, 1 dose, On Betty 03/19/13 at 0830, Apply to *bilateral hand iv sites . WASTE DISPOSAL INSTRUCTIONS: Black Bin Disposal required. $ Given 03/19/2013 7:50 AM SILVER SPRAY WORKER 1 tube documented in this encounter Active and Recently Administered Medications Times are shown in SILVER SPRAY WORKER. Scheduled Medication Order 03/17/2013 03/18/2013 03/19/2013 flumazenil (ROMAZICON) injection 0.3 mg (COMPLETED) 0.3 mg (0.96416 mg/kg), Intravenous, ONCE, 1 dose, On Betty 03/19/13 at 1000 1009 ($ Given - Prov ider: Catherine Langley RN) lidocaine (LMX 4) 4 % cream (COMPLETED) [...] Catherine Langley RN)1030 (Stopped - Provider: Catherine Langley RN) documented in this encounter
--- OUTSIDE RECORDS SUMMARY | 2024-04-25 11:11 | XMS_ITS | Encounter Summary ---
Author Organization [facility] Address [address] [place] [address] Care Team Providers Care Mulling Machine Operator Name Role Phone Unavailable Primary Care Provider Unavailabl e Reason for Visit * Reason Comments Sore Throat Encounter Details Date Type Department Care Team (Late st Contact Info) Description 05/14/2014 3:45 PM CAREER ADVISOR Office Visit [facility] - Pediatrics [address] [place] [phone] Angie Sung MD [address] [place] [phone] Strep throat (Primary Dx) Social History Tobacco Use Types [...] - - Temperature 37.4 ??C (99.4 ??F) 05/15/2014 9:20 AM CS T Respiratory Rate - - Oxygen Saturation - - Inhaled Oxygen Concentration - - Weight 47.4 kg (104 lb 9.6 oz) 05/15/2014 9:20 A M CAREER ADVISOR Height - - Body Mass Index 19.85 05/04/2014 10:38 AM CAREER ADVISOR Body Mass Index Percentile 28.85% 05/15/2014 9:2 0 AM CAREER ADVISOR Growth Chart: [facility] (Girls, 2- 20 Years) documented in this encounter Progress Notes * Angie Sung MD - 05/14/2014 3:53 PM CST Brandy Gallardo. 18 y.o., female, here for evaluation of sore throat and nausea. Symptoms started 1 day ago. Fever: Yes, Tmax subjective Runny Nose: No, Congestion: No Cough: No, Headache: Yes Abd Pain: Yes and nausea Rash: No Sleep: good Appetite: poor Fluids: fair Sick contacts with Strep: No PE: Alert, looks ill but nontoxic SHEENT: Skin: no observable rash Ears: Left: Normal Right: Normal Throat:injected Tonsils: red, swollen Neck: supple, tender ant LAD Heart: normal S1, S2, no murmurs or gallops. Lungs: Clear to auscultation and Normal breath sounds bilaterally Rapid Strep: positive Impression: Strep Pharyngitis Plan: Rx: amox as per orders Fever control and encourage fluids. Follow up prn. ER ADVISOR documented in this encounter Plan of Treatment Not on file documented as of this encounter Visit Diagnoses Diagnosis Strep throat- Primary Streptococcal sore throat documented in this encounter
--- OUTSIDE RECORDS SUMMARY | 2024-04-25 11:11 | XMS_ITS | Encounter Summary ---
Author Organization [facility] Address [address] [place] [address] Care Team Providers Care Cigar Head Piercer Name Role Phone Unavailable Primary Care Provider Unavailabl e Reason for Visit * Reason Comments Follow-up Topomax check. No co ncerns at this time. Thyroid Problem Strong family histor y of thyroid problems and would like to get levels checked. Encounter Details Date Type Department Care Team (Late st Contact Info) Description 12/20/2012 10:00 AM CDT Office Visit [facility] Medical [facility] - Pediatrics [address] [place] [address] [place] [phone] Jose Miguel Kramer MD [address] [place] [address] [phone] Migraine (Primary Dx); Weight loss Social History Tobacco Use Types Packs/Day Years Used Date Smoking Tobacco: Never Assessed Sex and Gender Information Value Date Recorded Sex Assigned at Not on file Gender Identity Not on file Sexual Orientation Not on file documented as of this encounter Last Filed Vital Signs Vital Sign Reading Time Taken Comments Blood Pressure 109/71 12/20/2012 9:54 AM CDT Pulse 73 12/20/2012 9:54 AM CDT Temperature 37 ??C (98.6 ??F) 12/20/2012 9:54 AM CDT Respiratory Rate - - Oxygen Saturation - - Inhaled Oxygen Concentration - - Weight 44.7 kg (98 lb 9.6 oz) 12/20/2012 9:54 AM CDT Height - - Body Mass Index - - documented in this encounter Progress Notes * Jose Miguel Kramer MD - 12/26/2012 10:44 AM CDTQuick Note: Spoke with dad about lab results. Looks like Brandy has celiac disease. Advised appt with GI. Dad states that family was looking at [employer] since last visit about celiac disease and says that thepicture fit Brandy exactly. Spoke briefly about gluten free diet and checking labels in meantime before seeing GI. * Jose Miguel Kramer MD - 12/24/2012 11:26 AM CDTQuick Note: Mom told of negative results. See note from last visit for further. * Jose Miguel Kramer MD - 12/24/2012 11:23 AM CDT Told mom of negative thyroid studies. Need to work up weight loss. Mom states that Brandy does complain of upper stomach pain that goes to the sides a lot, probably more that her headaches . Also occasionally complains of thigh and knee pain. --will repeat lytes, LFTS, esr, as well as crp, amylase, lipase, celiac panel. Can go to [facility] for labs. If nothing found on labs, consider referral to GI. * Jose Miguel Kramer MD - 12/20/2012 11:47 AM CDT Brandy is here with dad for follow up on headaches managed with topamax. She reports that she has gotten a few headaches since school started last week, otherwise, her headaches have been well controlled with topamax. She does get a little sleepy and nauseus after taking the topamax, but says these sx are tolerable. Also, dad would like to discuss checking Brandy for thyroid disease. There is a strong family hx of thyroid disease in Brandy's family: Mom had estelle's and CA discovered when removing part of thyroid--total removal then done. Maternal aunt's both with thyroid disease Brandy's brother on thyroid medication Both of dad's brothers have Graves disease. Brandy states she does have temperature intolerance--feels hot or cold when others don't no appetite changes, weight changes (see below), skin changes, changes in menstrual periods. Denies vomiting or diarrhea. Not exercising more (usually sits on the couch ) PE:weight 98.6# (-19.8 # since April) HR:73 B/P: 109/71 Gen: well appearing HEENT: throat clear No masses to neck or thyromegaly appreciated. Resp: CTA CV: nL w/o M Skin: mild to moderate papular, comedonal acne to cheeks. Erythematous, dry skin to neck Impression: 1. Headaches, migraine, controlled on topamax 2. Weight loss (and fhx of thyroid disease) Plan: 1. Refill topamax. Call if side effects become worrisome. 2. I am concerned about an almost 20# loss in 7 months without any changes in diet or exercise. Will check tsh, free T4. Had cbc,cmp,esr in August of this year that were all fairly normal so won't repeat those. documented in this encounter Miscellaneous Notes * Addendum Note - Jose Miguel Kramer MD - 12/24/2012 11:26 AM CDTAddended by: JOSE MIGUEL KRAMER on: 12/24/2012 11:26 AM Modules accepted: Orders documented in this encounter Plan of Treatment Not on file documented as of this encounter Procedures Procedure Name Priority Date/Time Associated Diagnosis Comments CELIAC DISEASE COMPREHENSIVE Routine 12/24/2012 3:42 PM CDT Weight loss C-REACTIVE PROTEIN Routine 12/24/2012 3: 42 PM CDT Weight loss ERYTHROCYTE SEDIMENTATION RATE Routine 12/24/2012 3:42 PM CDT Weight loss COMPREHENSIVE METABOLIC PANEL Routine 12/24/2012 3:42 PM CDT Weight loss LIPASE BLOOD Routine 12/24/2012 3:42 PM CDT Weight loss AMYLASE BLOOD Routine 12/24/2012 3:42 PM CDT Weight loss TSH Routine 12/22/2012 3:06 PM CDT Weight loss T4 FREE Routine 12/22/2012 3:06 PM CDT Weight loss documented in this encounter Results * LIPASE BLOOD (12/24/2012 3:42 PM CDT) Lipase 25 0 - 59 U/L [facility] A CCOUNT BILL Blood specimen (specimen) BLOOD SPECIMEN / Unknown 12/24/2012 3:42 PM CDT 12/24/2012 6:08 PM CDT Narrative Resulting Agency Comment [facility] [place] [address] ??[facility] [phone] Jose Miguel Kramer MD LAB - CHEMISTRY LIZZY LEPE Performing Organization Address City/[facility]/ZIP Co de Phone Number [facility] ACCOUNT BILL * AMYLASE BLOOD (12/24/2012 3:42 PM CDT) Amylase 35 31 - 124 U/L [facility] ACCOUNT BILL Blood specimen (specimen) BLOOD SPECIMEN / Unknown 12/24/2012 3:42 PM CDT 12/24/2012 6:08 PM CDT Narrative Resulting Agency Comment [facility] [address] ??[facility] [phone] Jose Miguel Kramer MD LAB - CHEMISTRY LIZZY LEPE [facility] ACCOUNT BILL * (ABNORMAL) CELIAC DISEASE COMPREHENSIVE (12/24/2012 3:42 [...] PM CDT Narrative Resulting Agency Comment [facility] [address] ??[facility] [phone] Jose Miguel Kramer MD LAB - CHEMISTRY LIZZY LEPE [facility] ACCOUNT BILL * COMPREHENSIVE METABOLIC PANEL (12/24/2012 3:42 PM CDT) Glucose 74 65 - 99 mg/dL [facility] ACCOUNT BILL BUN 7 5 - 18 mg/dL [facility] ACCOUNT BILL Creatinine 0.60 0.57 - 1.00 mg/dL [facility] ACCOUNT BILL BUN/Creatinine Ratio 12 9 - 25 [facility] ACCOUNT BILL Sodium 138 134 - 144 mmol/L [facility] ACCOUNT BILL Potassium 3.9 3.5 - 5.2 mmol/L [facility] ACCOUNT BILL Chloride 105 97 - 108 mmol/L [facility] ACCOUNT BILL CO2 19 19 - 28 mmol/L [facility] ACCOUNT BILL Calcium 9.5 8.9 - 10.4 mg/dL [facility] ACCOUNT BILL Protein Total 6.9 6.0 - 8.5 g/dL [facility] ACCOUNT BILL Albumin 4.4 3.5 - 5.5 g/dL [facility] ACCOUNT BILL Globulin Total 2.5 1.5 - 4.5 g/dL [facility] ACCOUNT BILL Albumin/Globulin Ratio 1.8 1.1 - 2.5 [facility] ACCOUNT BILL Bilirubin Total 0.4 0.0 - 1.2 mg/dL [facility] ACCOUNT BILL Alkaline Phosphatase 65 45 - 101 IU/L [facility] ACCOUNT BILL AST 23 0 - 40 IU/L [facility] ACCOUNT BILL ALT 13 0 - 24 IU/L [facility] ACCOUNT BILL Blood specimen (specimen) BLOOD SPECIMEN / Unknown 12/24/2012 3:42 PM CDT 12/24/2012 6:08 PM CDT Narrative Resulting Agency Comment [facility] [address] ??[facility] [phone] Jose Miguel Kramer MD LAB - CHEMISTRY LIZZY LEPE [facility] ACCOUNT BILL * C-REACTIVE PROTEIN (CRP) (12/24/2012 3:42 PM CDT) C-Reactive Protein 1.2 0.0 - 4.9 mg/L [facility] ACCOUNT BILL Blood specimen (specimen) BLOOD SPECIMEN / Unknown 12/24/2012 3:42 PM CDT 12/24/2012 6:08 PM CDT Narrative Resulting Agency Comment [facility] [id number] ??[facility] [phone] Jose Miguel Kramer MD LAB - CHEMISTRY LIZZY LEPE Performing Organization Address [facility] Co de Phone Number [facility] ACCOUNT BILL * SED RATE AUTO (ESR) (12/24/2012 3:42 PM CDT) Erythrocyte Sedimentation Rate Westergren 7 0 - 32 mm/hr [facility] ACCOUNT BILL Blood specimen (specimen) BLOOD SPECIMEN / Unknown 12/24/2012 3:42 PM CDT 12/24/2012 6:08 PM CDT Narrative Resulting Agency Comment [facility] [id number] [facility] ??[facility] [phone] Jose Miguel Kramer MD LAB - HEMATOLOGY JUHI GLYNN Performing Organization Address [facility] de Phone Number [facility] ACCOUNT BILL * T4 FREE (12/22/2012 3:06 PM CDT) T4 Free 1.28 0.93 - 1.60 ng/dL [facility] ACCOUNT BILL Blood specimen (specimen) BLOOD SPECIMEN / Unknown 12/22/2012 3:06 PM CDT 12/22/2012 6:07 PM CDT Narrative Resulting Agency Comment [facility] [id number] [facility] ??[facility] [phone] Jose Miguel Kramer MD LAB - CHEMISTRY LIZZY LEPE Performing Organization Address [facility] Co de Phone Number [facility] ACCOUNT BILL * TSH (12/22/2012 3:06 PM CDT) TSH 2.340 0.450 - 4.500 uIU/mL [facility] ACCOUNT BILL Blood specimen (specimen) BLOOD SPECIMEN / Unknown 12/22/2012 3:06 PM CDT 12/22/2012 6:07 PM CDT Narrative Resulting Agency Comment [facility] [place] [address] [facility] ??[facility] [phone] Jose Miguel Kramer MD LAB - CHEMISTRY [facility] Organization Address City/State/ZIP Co de Phone Number [facility] ACCOUNT BILL documented in this encounter Visit Diagnoses Diagnosis Migraine- Primary Migraine, unspecified, without mention of intractable migraine without mention of status migrainosus Weight loss Loss of weight documented in this encounter
--- OUTSIDE RECORDS SUMMARY | 2024-04-25 11:11 | XMS_ITS | Encounter Summary ---
Author Organization [facility] Address [address] [place] [address] Care Team Providers Care Printing Supplies Sales Representative Name Role Phone Unavailable Primary Care Provider Unavailabl e Reason for Referral * - Closed Specialty Diagnoses / Procedures Referred By Contigor t Referred To Contact Diagnoses Headache(784.0) Procedures CT HEAD NON CONTRAST Angie Sung MD [address] [place] [phone] Referral ID Status Reason Start Date Expiration Date Visits Re quested Visits Authorized [id number] Closed 05/15/2012 11/11/2012 1 1 L TRIM OPERATOR Reason for Visit * Reason Comments Headache has had headaches he r entire life, but lately headaches have been more sever and frequent. She is having them everyother day. Headaches last all day; nothing helps them. Pt has used Amitriptyline medication in the past. Encounter Details Date Type Department Care Team (Late st Contact Info) Description 05/15/2012 3:15 PM SHELL TRIM OPERATOR Office Visit [facility] - Pediatrics [address] [place] [phone] Angie Sung MD [address] [place] [phone] Headache (Primary Dx) Social History Tobacco Use Types Packs/Day Years Used Date Smoking Tobacco: Never Assessed Sex and Gender Information Value Date Recorded Sex Assigned at Not on file Gender Identity Not on file Sexual Orientation Not on file documented as of this encounter Last Filed Vital Signs Vital Sign Reading Time Taken Comments Blood Pressure - - Pulse - - Temperature 36.9 ??C (98.4 ??F) 05/15/2012 2:53 PM CS T Respiratory Rate - - Oxygen Saturation - - Inhaled Oxygen Concentration - - Weight 53.7 kg (118 lb 6.4 oz) 05/15/2012 2:53 P M SHELL TRIM OPERATOR Height 153.7 cm (5' 0.5 ) 05/15/2012 2:53 PM SHELL TRIM OPERATOR Body Mass Index 22.74 05/15/2012 2:53 PM SHELL TRIM OPERATOR Body Mass Index Percentile 72.10% 05/15/2012 2:5 3 PM SHELL TRIM OPERATOR Growth Chart: [facility] (Girls, 2- 20 Years) documented in this encounter Progress Notes * Angie Sung MD - 05/19/2012 4:59 PM CST Informed dad that head CT is negative. L TRIM OPERATOR * Angie Sung MD - 05/15/2012 4:27 PM CST Brandy Gallardo, 16 y.o., female, here for evaluation of headaches. Headaches began years ago, And they have become more frequent and severe in the past couple of months. They occur 3-4 days per week,last hours to all day. Location: frontal or posterior Quality: sharp, pressure, tension Severity 9 / 10 Photophobia: Yes Phonophobia: Yes Vomiting: No, +nausea Awaken at night with headache: Yes. Also wakes in AM with GARCIA at times. Aura preceding headache: sometimes can tell a headache is coming. Recent history of head trauma: No Improve with rest: sometimes yes, other times no Vision changes: No Had an episode in past few weeks where she was having a headache and was writing but couldn't feel her arm writing. Fever: No Family history of migraine or other headaches: Yes-betty Medications: Amytriptyline, advil (using amytriptyline prn) uses advil at least once a week. PE: Temp(Src) 98.4 ??F (Temporal Artery) Wt 53.706 kg (118 lb 6.4 oz) BMI 22.74 kg/m2 Alert, NAD SHEENT WNL Heart: normal S1, S2, no murmurs or gallops. Lungs: Clear to auscultation and Normal breath sounds bilaterally Neuro: Cranial nerves intact, no focal motor or sensory deficits, Equal, normal strength bilateral UE. Normal gait. Impression: 1. Headaches--c/w migraine Plan: head CT due to waking with GARCIA. Rx: topomax 25 mg BID. Discussed side effects, benefits. Follow up in 6-8 weeks, sooner if having side effects or if not completely helping. Reviewed supprotive care. Naproxen as directed prn. Try to avoid tylenol/motrin due to overuse GARCIA. L TRIM OPERATOR documented in this encounter Plan of Treatment Not on file documented as of this encounter Results * CT HEAD NON CONTRAST (05/19/2012) Anatomical Region Laterality Modality Head Other Angie Sung MD CT ORDERABLES documented in this encounter Visit Diagnoses Diagnosis Headache(784.0)- Primary Headache documented in this encounter
--- OUTSIDE RECORDS SUMMARY | 2024-04-25 11:11 | XMS_ITS | Encounter Summary ---
Author Organization [facility] Address [address] [place] [address] Care Team Providers Care Phone Screener Name Role Phone Unavailable Primary Care Provider Unavailabl e Reason for Visit * Reason Onset Date Comments Scheduling 02/17/2013 Encounter Details Date Type Department Care Team (Late st Contact Info) Description 02/17/2013 Telephone [facility] - [address] [place] [address] Alondra Walls MD [address] [place] [id number] Scheduling Social History Tobacco Use Types Packs/Day Years Used Date Smoking Tobacco: Never Assessed Sex and Gender Information Value Date Recorded Sex Assigned at Not on file Gender Identity Not on file Sexual Orientation Not on file documented as of this encounter Miscellaneous Notes * Telephone Encounter - Winifred Dick - 02/17/2013 3:28 PM CDT Scheduled for oupatient EGD on 03/02/13 at 8:[address] Walls documented in this encounter Plan of Treatment Not on file documented as of this encounter Visit Diagnoses Not on filedocumented in this encounter
--- OUTSIDE RECORDS SUMMARY | 2024-04-25 11:11 | XMS_ITS | Encounter Summary ---
Author Organization [facility] Address [address] [place] [address] Care Team Providers Care Machine Shop Apprentice Name Role Phone Unavailable Primary Care Provider Unavailabl e Reason for Visit * Reason Comments Medication Check states clexa making her hyper ; can't sleep at night Encounter Details Date Type Department Care Team (Late st Contact Info) Description 10/10/2013 9:30 AM CDT Office Visit [facility] - Pediatrics [address] [place] [phone] Angie Sung MD [address] [place] [address] [phone] Anxiety (Primary Dx); Other follow-up examination; Medication side effect Social History Tobacco Use Types Packs/Day Years Used Date Smoking Tobacco: Never Sex and Gender Information Value Date Recorded Sex Assigned at Not on file Gender Identity Not on file Sexual Orientation Not on file documented as of this encounter Last Filed Vital Signs Vital Sign Reading Time Taken Comments Blood Pressure - - Pulse - - Temperature 36.4 ??C (97.5 ??F) 10/10/2013 9:28 AM CD T Respiratory Rate - - Oxygen Saturation - - Inhaled Oxygen Concentration - - Weight 49.1 kg (108 lb 3.2 oz) 10/10/2013 9:28 A M CDT Height - - Body Mass Index - - documented in this encounter Progress Notes * Angie Sung MD - 10/10/2013 9:37 AM CDT Brandy Gallardo is here for follow up of anxiety. She was diagnosed with anxiety 1 month ago. She was started on celexa 10 mg. She reports that the celexa is making her hyperactive. She is also having difficulty sleeping. She was initially taking the med at night but when she realized it was keeping her awake, she started taking it in the morning. It was still keeping her awake. Mood: good The medication did help with her anxiety. She did not noticed any other side effects from the medication. PE: Gen-well appearing. Neck: supple, no LAD CV-nL S1S2 w/o M Resp-CTA Impression: 1 Follow up anxiety. 2. Medication side effect Plan: will taper off celexa while switching to zoloft. celexa 10mg, 1/2 tab daily for 7 days, then off At same time, start zoloft 25 mg daily. Follow up in 1 month. Sooner if side effects from the zoloft. documented in this encounter Plan of Treatment Not on file documented as of this encounter Visit Diagnoses Diagnosis Anxiety- Primary Anxiety state, unspecified Other follow-up examination(V67.59) Other follow-up examination Medication side effect Unspecified adverse effect of unspecified drug, medicinal and biological substance documented in this encounter
--- OUTSIDE RECORDS SUMMARY | 2024-04-25 11:11 | XMS_ITS | Encounter Summary ---
Author Organization [facility] Address [address] [place] [address] Care Team Providers Care Cone Machine Operator Name Role Phone Jesus Avila MD Primary Care Provider Encounter Details Date Type Department Care Team (Late st Contact Info) Description 02/26/2013 [facility] Outpatient Visit [facility] [address] [place] [address] Unknown, Provider Social History Tobacco Use Types Packs/Day Years Used Date Smoking Tobacco: Never Assessed Sex and Gender Information Value Date Recorded Sex Assigned at Not on file Gender Identity Not on file Sexual Orientation Not on file documented as of this encounter Plan of Treatment Not on file documented as of this encounter Visit Diagnoses Not on filedocumented in this encounter Care Teams Cone Machine Operator Relationship Specialty Start Date End Date Jesus Avila MD [address] [place] [phone] PCP - General 07/05/22 documented as of this encounter
--- OUTSIDE RECORDS SUMMARY | 2024-04-25 11:11 | XMS_ITS | Encounter Summary ---
Author Organization [facility] Address [address] [place] [address] Care Team Providers Care Millroom Supervisor Name Role Phone Unavailable Primary Care Provider Unavailabl e Reason for Visit * Reason Comments Pain joint pain Encounter Details Date Type Department Care Team (Late st Contact Info) Description 05/04/2014 10:15 AM CORPORATE COMMUNICATIONS ASSOCIATE Office Visit [facility] - Pediatrics [address] [place] [address] [place] [phone] Angie Sung MD [address] [place] [phone] Pain in joint, multiple sites (Primary Dx) Social History Tobacco Use Types [...] Pressure - - Pulse - - Temperature 37.1 ??C (98.8 ??F) 05/04/2014 10:[address] Respiratory Rate - - Oxygen Saturation - - Inhaled Oxygen Concentration - - Weight 48.1 kg (106 lb) 05/04/2014 10:38 AM CORPORATE COMMUNICATIONS ASSOCIATE Height 154.6 cm (5' 0.88 ) 05/04/2014 10:[address] Body Mass Index 20.11 05/04/2014 10:38 AM CORPORATE COMMUNICATIONS ASSOCIATE Body Mass Index Percentile 32.60% 05/04/2014 10: 38 AM CORPORATE COMMUNICATIONS ASSOCIATE Growth Chart: [facility] (Girls, 2- 20 Years) documented in this encounter Progress Notes * Angie Sung MD - 05/04/2014 12:40 PM CST Brandy Gallardo is an 18 y/o female with h/o psoriasis and celiac disease who presents with concern ofjoint pains for about a year, which are worsening in the past couple months. She gets pain to knees, ankles, wrists and a few times to elbows. The pain is described as achey. It can occur in one joint or both at the same time. The knees are the site of the most pain and at times pain has been so bad that she did not want to walk. The pain is usually worst at the end of the day or when she has worked. 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 There is no swelling associated with the pain and she does not have morning pain. There is no pain to finger joints. She has tried ibuprofen and ice for pain but that does not offer much relief. No recent illnesses No fevers. Currently, she reports her psoriasis is probably the best its been in quite a while with some minorlesions on right leg and right elbow. PE: Gen-well appearing Resp:CTA CV: mL w/o M M/S: there is no swelling to knees ankles, wrists. She has full ROM at wrists, knees, elbows, ankles without pain. nL and equal strength to UE and LE Skin: small maculopapular patch to right lower [place]. Impression: Joint pains --this could be consistent with psoriatic type arthritis pain Plan: will refer to rheum. Defer labs for now as rheum may want to order further labs. Advised aleve for pain up to 3x per day. Take with food. ORATE COMMUNICATIONS ASSOCIATE * Florinda Vasquez RN - 05/04/2014 10:40 AM CST Brandy Gallardo is a 18 y.o. female presents to office today by self for evaluation of joint pain. Pt says that her joints, ankles, knees, wrists and occasionally elbows, have been hurting x1 year. Worsening over the last month. Says the pain in knees is the worst area. Pt says that she will try ibuprofen and ice without relief. Becomes almost unbearable to her at times. Pt says that she does not see swelling with pain. Otherwise feels okay. ORATE COMMUNICATIONS ASSOCIATE documented in this encounter Plan of Treatment Not on file documented as of this encounter Visit Diagnoses Diagnosis Pain in joint, multiple sites- Primary documented in this encounter
--- OUTSIDE RECORDS SUMMARY | 2024-04-25 11:11 | XMS_ITS | Encounter Summary ---
Author Organization [facility] Address [address] [place] [address] Care Team Providers Care Last Pattern Grader Name Role Phone Unavailable Primary Care Provider Unavailabl e Reason for Visit * Reason Comments Medication Check taking topamax; not working as well; had 3 migraines this week; not happy with medication Encounter Details Date Type Department Care Team (Late st Contact Info) Description 02/04/2014 4:15 PM CDT Office Visit [facility] - Pediatrics [address] [place] [phone] Angie Sung MD [address] [place] [phone] Migraine (Primary Dx); Depression; Other follow-up examination Social History Tobacco Use Types Packs/Day Years [...] Sign Reading Time Taken Comments Blood Pressure 104/60 02/04/2014 4:17 PM CDT Pulse - - Temperature 37.6 ??C (99.6 ??F) 02/04/2014 4:17 PM CD T Respiratory Rate - - Oxygen Saturation - - Inhaled Oxygen Concentration - - Weight 50.2 kg (110 lb 9.6 oz) 02/04/2014 4:17 P M CDT Height - - Body Mass Index - - documented in this encounter Progress Notes * Angie Sung MD - 02/04/2014 4:37 PM CDT I performed a history and physical exam of the patient and discussed management with Dr. River. Ireviewed Dr. River's note and agree with documented findings and care. No side effects from either medication noted. Good mood, no anxiety on zoloft. Sleeping well. Impression: 1. Migraines, not controlled on current dose of topamox. 2. Depression, doing well on zoloft Plan: 1. Increase topamax to 50mg BID Call if not fully controlling headaches. 2. Refill zoloft * Angelica River - 02/04/2014 4:12 PM CDT Brandy Gallardo, 18 y.o., female, here for evaluation of headaches. She has been taking topamax 25 mg BID for headache prevention. In the past month or two increasing headaches with 3 migraines in thepast week. Headaches feel the same as her usual headaches. Headaches typically last 1hr to a whole day. This week she had one that lasted all day. Location: whole head or right side Quality: pounding Severity 10 / 10 Photophobia: Yes Phonophobia: Yes Vomiting: No Awaken at night with headache: Yes Aura preceding headache: sometimes tingling in hand Recent history of head trauma: No Improve with rest: Yes - sometimes Vision changes: No Fever: No, Family history of migraine or other headaches: Yes Medications: topamax Also takes zoloft for depressive symptoms. Doing very well, no trouble sleeping, good mood, and wants to continue at the same dose. PE: BP 104/60 Temp(Src) 99.6 ??F (Temporal) Wt 50.168 kg (110 lb 9.6 oz) Alert, NAD SHEENT WNL Heart: Normal PMI. regular rate and rhythm, normal S1, S2, no murmurs or gallops. Lungs: Respiratory effort normal, clear to auscultation, normal breath sounds bilaterally Neuro: Cranial nerves intact, no focal motor or sensory deficits, Equal, normal strength bilateral UE. Normal gait. Impression: Chronic headaches not well controlled with current dose of topamax Depression Plan: Increase to 50 mg BID, monitor for improvement in headaches, call with any questions or concerns Refill medardooflulú River 02/04/2014 4:33 PM documented in this encounter Plan of Treatment Not on file documented as of this encounter Visit Diagnoses Diagnosis Migraine- Primary Depression Depressive disorder, not elsewhere classified Other follow-up examination(V67.59) Other follow-up examination documented in this encounter
--- OUTSIDE RECORDS SUMMARY | 2024-04-25 11:11 | XMS_ITS | Encounter Summary ---
Author Organization [facility] Address [address] [place] [address] Care Team Providers Care Transmission Assembler Name Role Phone Unavailable Primary Care Provider Unavailabl e Reason for Visit * Reason Onset Date Comments Cough 03/03/2013 Encounter Details Date Type Department Care Team (Late st Contact Info) Description 03/03/2013 Telephone [facility] - Pediatrics [address] [place] [phone] Shreya Field MD [address] [phone] Cough Social History Tobacco Use Types Packs/Day Years Used Date Smoking Tobacco: Never Assessed Sex and Gender Information Value Date Recorded Sex Assigned at Not on file Gender Identity Not on file Sexual Orientation Not on file documented as of this encounter Miscellaneous Notes * Telephone Encounter - Shreya Field MD - 03/03/2013 4:51 PM CST Spoke to dad, Brandy is coughing and not feeling any better. If not better by tomorrow will order CXR. CTOR OF EMPLOYEE DEVELOPMENT * Telephone Encounter - Gabriella Molina - 03/03/2013 2:25 PM CST Mother called with concerns that Brandy is not any better today with meds. She requested a note for excuse from school. Wants to know how long Before she should notice an improvement on z pack. Did mention you Might do an xray. CTOR OF EMPLOYEE DEVELOPMENT documented in this encounter Plan of Treatment Not on file documented as of this encounter Visit Diagnoses Not on filedocumented in this encounter
--- OUTSIDE RECORDS SUMMARY | 2024-04-25 11:11 | XMS_ITS | Encounter Summary ---
Author Organization [facility] Address [address] [place] [address] Care Team Providers Care Museum Attendant Name Role Phone Unavailable Primary Care Provider Unavailabl e Encounter Details Date Type Department Care Team (Late st Contact Info) Description 05/30/2012 Orders Only [facility] - Pediatrics [address] [place] [phone] Angie Sung MD [address] [place] [phone] Headache Social History Tobacco Use Types Packs/Day Years Used Date Smoking Tobacco: Never Assessed Sex and Gender Information Value Date Recorded Sex Assigned at Not on file Gender Identity Not on file Sexual Orientation Not on file documented as of this encounter Plan of Treatment Not on file documented as of this encounter Procedures Procedure Name Priority Date/Time Associated Diagnosis Comments CT HEAD WO CONTRAST Routine 05/19/2012 Headache documented in this encounter Results * CT HEAD NON CONTRAST (05/19/2012) Anatomical Region Laterality Modality Head Other Angie Sung MD CT ORDERABLES documented in this encounter Visit Diagnoses Diagnosis Headache(784.0) Headache documented in this encounter
--- OUTSIDE RECORDS SUMMARY | 2024-04-25 11:11 | XMS_ITS | Encounter Summary ---
Author Organization [facility] Address [address] [place] [address] Care Team Providers Care Certified Tower Climber Name Role Phone Unavailable Primary Care Provider Unavailabl e Reason for Visit * Reason Comments DEHYDRATION no urine since yeste rday afternoon Encounter Details Date Type Department Care Team (Late st Contact Info) Description 03/04/2013 10:45 AM BORING MACHINE OPERATOR HORIZONTAL Office Visit [facility] - Pediatrics [address] [place] [phone] Shreya Field MD [address] [place] [address] Cough (Primary Dx); Dehydration Social History Tobacco Use Types Packs/Day Years Used Date Smoking Tobacco: Never Assessed Sex and Gender Information Value Date Recorded Sex Assigned at Not on file Gender Identity Not on file Sexual Orientation Not on file documented as of this encounter Last Filed Vital Signs Vital Sign Reading Time Taken Comments Blood Pressure 102/62 03/04/2013 10:39 AM BORING MACHINE OPERATOR HORIZONTAL Pulse 88 03/04/2013 10:39 AM BORING MACHINE OPERATOR HORIZONTAL Temperature 36.7 ??C (98 ??F) 03/04/2013 10:39 AM BORING MACHINE OPERATOR HORIZONTAL Respiratory Rate - - Oxygen Saturation - - Inhaled Oxygen Concentration - - Weight 44.9 kg (99 lb) 03/04/2013 10:39 AM BORING MACHINE OPERATOR HORIZONTAL Height - - Body Mass Index - - documented in this encounter Progress Notes * Shreya Field MD - 03/04/2013 10:45 AM CST SUBJECTIVE: Brandy Gallardo is a 17 y.o. female brought by both parents with complaints of continued cough and sore throat for ten days Fever: Yes, 100.4 two days ago, none since then, getting tylenol with ibuprofen round the clock, none today.reduced activity, reduced appetite, reduced fluid intake and decreased urination. She was seen on week ago at [facility] for cough and sore throat, tested for strep which wasnegative, sent home with a diagnosis of viral illness to run its course. She continued to cough andhad a sore throat was seen here in the office on 03/02 and diagnosed with clinical pneumonia on chest exam harsh breath sounds, prescribed Zithromax. Since then she continues to cough, has a sore throat, is tired and not eating or drinking well, she has not had much to drink since yesterday and onlyurinated in the office today since four pm yesterday, she has also been constipated since last week, no vomiting or diarrhea noted and has lost five pounds in two days. She is being worked up for celiac disease, her celiac panel was abnormal. OBJECTIVE: BP 102/62 Pulse 88 Temp 98 ??F (Temporal Artery) Wt 44.906 kg (99 lb) General appearance: alert, well appearing, and in no distress, dehydrated and ill-appearing. Ears: bilateral TM's and external ear canals normal Nose: normal and patent, no erythema, discharge or polyps Oropharynx: No exudate noted, mildly dry mucous membrane Neck: supple, no significant adenopathy Lungs: clear to auscultation, no wheezes, rales or rhonchi, symmetric air entry Heart - regular rate and rhythm, normal S1 and S2, no murmurs Abdomen: soft, no masses, no hsm, bs audible ASSESSMENT: Cough and dehydration PLAN: UA in office normal Referred to ER for hydration, discussed with kierra santacruz. NG MACHINE OPERATOR HORIZONTAL documented in this encounter Plan of Treatment Not on file documented as of this encounter Procedures Procedure Name Priority Date/Time Associated Diagnosis Comments URINALYSIS - POINT OF CARE Routine 03/04/2013 10:46 AM BORING MACHINE OPERATOR HORIZONTAL Dehydration documented in this encounter Results * (ABNORMAL) URINALYSIS - POINT OF CARE (03/04/2013 10:46 AM BORING MACHINE OPERATOR HORIZONTAL) Clarity UA POCT cloudy Color UA POCT dark imani Leukocyte UA 2+ Negative Nitrite UA POCT negative Negative Urobilinogen UA POCT negative 0.1 - 1.0 EU/dL Protein UA POCT negative Negative pH UA 6 5.0 - 8.0 pH units Blood UA small Negative Specific Wellington UA POCT 1.025 1.002 - 1.030 Ketone UA trace Negative Bilirubin UA POCT negative Negative Glucose UA negative Negative Urine specimen (specimen) URINE / Unknown 03/04/2013 10:46 AM BORING MACHINE OPERATOR HORIZONTAL Shreya Field MD LAB - POINT OF CARE ORDERABLES documented in this encounter Visit Diagnoses Diagnosis Cough- Primary Dehydration documented in this encounter
--- OUTSIDE RECORDS SUMMARY | 2024-04-25 11:11 | XMS_ITS | Encounter Summary ---
Author Organization [facility] Address [address] [place] [address] Care Team Providers Care Sports Fitness And Wellness Director Name Role Phone Unavailable Primary Care Provider Unavailabl e Reason for Visit * Reason Comments Anxiety has been going on fo r years but has been getting worse lately, is graduating tomorrow and just started a new job, threw up yesterday due to the stress, anxiety runs in the family Encounter Details Date Type Department Care Team (Late Contact Info) Description 09/12/2013 10:00 AM CDT Office Visit [facility] - Pediatrics [address] [place] [address] [place] [phone] Jose Miguel Kramer MD [address] [place] [address] [phone] Anxiety (Primary Dx) Social History Tobacco Use Types Packs/Day Years Used Date Smoking Tobacco: Never Sex and Gender Information Value Date Recorded Sex Assigned at Not on file Gender Identity Not on file Sexual Orientation Not on file documented as of this encounter Last Filed Vital Signs Vital Sign Reading Time Taken Comments Blood Pressure - - Pulse - - Temperature 37 ??C (98.6 ??F) 09/12/2013 9:55 AM CDT Respiratory Rate - - Oxygen Saturation - - Inhaled Oxygen Concentration - - Weight 49.9 kg (110 lb) 09/12/2013 9:55 AM CDT Height - - Body Mass Index - - documented in this encounter Progress Notes * Jose Miguel Kramer MD - 09/12/2013 10:14 AM CDT Brandy Gallardo is a 17 y.o. female who presents with mom today for anxiety. She has been feeling anxious for years, but seems to have gotten worse in the last couple of weeks. She is graduating from today and has started a new job at [employer], which she really dislikes. This transition time has seemed to set off her anxiety. She will be attending [employer] in the fall, and is undecided about her major and career path. Mom states that she thinks that Brandy has a lot of anxiety about growing up and being undecided about what shewants to do. She is anxious in general, but has not had discrete panic attacks. Change in appetite? No Weight loss or Weight gain? Weight gain (treated celiac disease) Insomnia or Hypersomnia? Usually takes her about 10 min to fall asleep, but took her 60 min last night Fatigue or loss of energy? No Concentration difficulties or indecisiveness? Yes Changes in grades at school? No Family hx of anxiety or depression? Yes, strong Fhx on mom's side of anxiety and some depression Hancock Anxiety scale: 72 PE: Gen- well appearing HEENT: throat clear Lungs-CTA Heart-nL S1S2 w/o murmur Impression: 1. Anxiety, severe Plan: Rx: celexa as per orders Discussed risks and benefits of medication. Referred to counseling. Follow up in 1 month documented in this encounter Miscellaneous Notes * Addendum Note - Jose Miguel Kramer MD - 09/12/2013 11:22 AM CDTAddended by: JOSE MIGUEL KRAMER on: 09/12/2013 11:22 AM Modules accepted: Orders documented in this encounter Plan of Treatment Not on file documented as of this encounter Visit Diagnoses Diagnosis Anxiety- Primary Anxiety state, unspecified documented in this encounter
--- OUTSIDE RECORDS SUMMARY | 2024-04-25 11:11 | XMS_ITS | Encounter Summary ---
Author Organization [facility] Address [address] [place] [address] Care Team Providers Care Flame Hardener Name Role Phone Unavailable Primary Care Provider Unavailabl e Reason for Visit * Reason Comments Refill Request Encounter Details Date Type Department Care Team (Late st Contact Info) Description 11/08/2013 Refill [facility] - Pediatrics [address] [place] [phone] Angie Sung MD [address] [place] [phone] Refill Request Social History Tobacco Use Types Packs/Day Years Used Date Smoking Tobacco: Never Sex and Gender Information Value Date Recorded Sex Assigned at Not on file Gender Identity Not on file Sexual Orientation Not on file documented as of this encounter Miscellaneous Notes * Telephone Encounter - Jordyn Wang RN - 11/09/2013 3:57 PM CDT Appt made for med check tomorrow morning. * Telephone Encounter - Jordyn Wang RN - 11/09/2013 9:36 AM CDT Left message to call office. * Telephone Encounter - Angie Sung MD - 11/09/2013 9:15 AM CDT I have sent 1 month refill on topamax for Brandy to pharmacy. She hasn't had a recheck for headaches in quite a while, or a well check for that matter. Needs to schedule appt prior to further refills documented in this encounter Plan of Treatment Not on file documented as of this encounter Visit Diagnoses Not on filedocumented in this encounter
--- OUTSIDE RECORDS SUMMARY | 2024-04-25 11:11 | XMS_ITS | Encounter Summary ---
Author Organization [facility] Address [address] [place] [address] Care Team Providers Care Delivery Associate Name Role Phone Unavailable Primary Care Provider Unavailabl e Reason for Visit * Reason Comments Follow-up Zoloft 25 mg x 1 mon th. Doing well. Encounter Details Date Type Department Care Team (Late st Contact Info) Description 11/10/2013 9:15 AM CDT Office Visit [facility] - Pediatrics [address] [place] [phone] Angie Sung MD [address] [place] [phone] Headache (Primary Dx); Anxiety; Other follow-up examination Social History Tobacco Use Types Packs/Day Years Used Date Smoking Tobacco: Never Sex and Gender Information Value Date Recorded Sex Assigned at Not on file Gender Identity Not on file Sexual Orientation Not on file documented as of this encounter Progress Notes * Angie Sung MD - 11/10/2013 10:54 AM CDT Brandy is here for med check for topamax and zoloft. She was started on the topamax for headaches in May. She reports that it controls her headaches pretty well. She usually has a couple of headaches per month. They last from a few hours to robinson. Her last headache was 3 days ago and it did last all day. She usually takes ibuprofen or Excedrin and that helps somewhat. She does not have any side effects from the topamax The zoloft was started in September for anxiety after she found celexa to be too activating. The zoloft is controlling her anxiety sx well. She reports that when she first started it, it made her hands tingle, but that subsided. She can fall asleep without any difficulty No nausea. Not feeling hyper like she did with celexa. PE: gen-well appearing HEENT: throat clear Resp:CTA CV: NL w/o M Impression: 1. Headaches, controlled on topamax 2. Anxiety, controlled with zoloft Plan: 1. Refill topamax. If headaches before more than just a couple times per month, I would recommend increasing dosage. 2. Refill zoloft. Follow up in 4 months documented in this encounter Plan of Treatment Not on file documented as of this encounter Visit Diagnoses Diagnosis Headache(784.0)- Primary Headache Anxiety Anxiety state, unspecified Other follow-up examination(V67.59) Other follow-up examination documented in this encounter
--- OUTSIDE RECORDS SUMMARY | 2024-04-25 11:11 | XMS_ITS | Encounter Summary ---
Author Organization [facility] Address [address] [place] [address] Care Team Providers Care Sales Support Assistant Name Role Phone Unavailable Primary Care Provider Unavailabl e Reason for Visit * Reason Comments DEHYDRATION x 10 days ill starte d with cold symptoms. flu/strep negative 02/26. has cough , chest pain with cough. has Pain Head hx migrane GARCIA. state s HA10/10now. some nausea- also to be tested for celiac disease.did not take topamax for garcia.void last yesterday Encounter Details Date Type Department Care Team (Late st Contact Info) Description 03/04/2013 11:05 AM ELECTRONICS LEAD - 03/04/2013 5:43 PM ELECTRONICS LEAD Emergency ER at [address] [address] Meron Parada MD [address] [place] [id number] Migraine (Primary Dx); Chest pain; Dehydration Discharge Disposition: Home or Self Care Social History Tobacco Use Types Packs/Day Years Used Date Smoking Tobacco: Never Assessed Sex and Gender Information Value Date Recorded Sex Assigned at Not on file Gender Identity Not on file Sexual Orientation Not on file documented as of this encounter Last Filed Vital Signs Vital Sign Reading Time Taken Comments Blood Pressure 98/62 03/04/2013 3:40 PM ELECTRONICS LEAD Pulse 96 03/04/2013 3:40 PM ELECTRONICS LEAD Temperature 36.6 ??C (97.8 ??F) 03/04/2013 3:40 PM CS T Respiratory Rate 18 03/04/2013 3:40 PM ELECTRONICS LEAD Oxygen Saturation - - Inhaled Oxygen Concentration - - Weight 45.4 kg (100 lb 1.4 oz) 03/04/2013 11:57 AM ELECTRONICS LEAD Height - - Body Mass Index - - documented in this encounter Discharge Instructions * Discharge Instructions* Meron Parada MD - 03/04/2013 5:32 PM ELECTRONICS LEAD Dehydration, Pediatric Dehydration is the loss of water and important blood salts from the body. Vital organs, such as thekidneys, brain, and heart, cannot function without a proper amount of water and salt. Severe vomiting, diarrhea, and occasionally excessive sweating, can cause dehydration. Since infants and childrenlose electrolytes and water with dehydration, they need oral rehydration with fluids that have the r ight amount electrolytes ( salts ) and sugar. The sugar is needed for two reasons; to give caloriesand most importantly to help transport sodium (an electrolyte) across the bowel wall into the bloodstream. There are many commercial rehydration solutions on the market for this purpose. Ask your [facility] about the rehydration solution you wish to buy. TREATING INFANTS: Infants not only need fluids from an oral rehydration solution but will also need calories and nutrition from formula or breast milk. Oral rehydration solutions will not provide enough calories for infants. It is important that they receive formula or breast milk. Doctors do not recommend diluting formula during rehydration. TREATING CHILDREN: Children may not agree to drink an oral rehydration solution. The parents may have to use sport drinks. Unfortunately, this is not ideal, but is better than fruit juices. For toddlers and children, additional calories and nutritional needs can be met by giving an age-appropriate diet. This includescomplex carbohydrates, meats, yogurts, fruits, and vegetables. For adults, they are treated the same as children. When a child or an adult vomits or has diarrhea, 4 to 8 ounces of ORS can be given toreplace the estimated loss. SEEK IMMEDIATE MEDICAL CARE IF: ?? Your child has decreased urination. ?? Your child has a dry mouth, tongue, or lips. ?? You notice decreased tears or sunken eyes. ?? Your child has dry skin. ?? Your child is breathing fast. ?? Your child is increasingly fussy or floppy. ?? Your child is pale or has poor color. ?? The child's fingertip takes more than 2 seconds to turn pink again after a gentle squeeze. ?? There is blood in the vomit or stool. ?? Your child's abdomen is very tender or enlarged. ?? There is persistent vomiting or severe diarrhea. MAKE SURE YOU: ?? Understand these instructions. ?? Will watch your child's condition. ?? Will get help right away if your child is not doing well or gets worse. Document Released: 04/07/2007 Document Revised: 07/07/2012 Document Reviewed: 10/13/2012 ExitCare?? Patient Information ??2013 [employer]. Migraine Headache A migraine headache is an intense, throbbing pain on one or both sides of your head. A migraine canlast for 30 minutes to several hours. CAUSES The exact cause of a migraine headache is not always known. However, a migraine may be caused when nerves in the brain become irritated and release chemicals that cause inflammation. This causes pain. SYMPTOMS ?? Pain on one or both sides of your head. ?? Pulsating or throbbing pain. ?? Severe pain that prevents daily activities. ?? Pain that is aggravated by any physical activity. ?? Nausea, vomiting, or both. ?? Dizziness. ?? Pain with exposure to bright lights, loud noises, or activity. ?? General sensitivity to bright lights, loud noises, or smells. Before you get a migraine, you may get warning signs that a migraine is coming (aura). An aura may include: ?? Seeing flashing lights. ?? Seeing bright spots, halos, or zig-zag lines. ?? Having tunnel vision or blurred vision. ?? Having feelings of numbness or tingling. ?? Having trouble talking. ?? Having muscle weakness. MIGRAINE TRIGGERS ?? Alcohol. ?? Smoking. ?? Stress. ?? Menstruation. ?? Aged cheeses. ?? Foods or drinks that contain nitrates, glutamate, aspartame, or tyramine. ?? Lack of sleep. ?? Chocolate. ?? Caffeine. ?? Hunger. ?? Physical exertion. ?? Fatigue. ?? Medicines used to treat chest pain (nitroglycerine), control pills, estrogen, and some blood pressure medicines. DIAGNOSIS A migraine headache is often diagnosed based on: ?? Symptoms. ?? Physical examination. ?? A CT scan or MRI of your head. TREATMENT Medicines may be given for pain and nausea. Medicines can also be given to help prevent recurrent migraines. HOME CARE INSTRUCTIONS ?? Only take qret-tso-epephow or prescription medicines for pain or discomfort as directed by your caregiver. The use of long-term narcotics is not recommended. ?? Lie down in a dark, quiet room when you have a migraine. ?? Keep a journal to find out what may trigger your migraine headaches. For example, write down: ?? What you eat and drink. ?? How much sleep you get. ?? Any change to your diet or medicines. ?? Limit alcohol consumption. ?? Quit smoking if you smoke. ?? Get 7 to 9 hours of sleep, or as recommended by your caregiver. ?? Limit stress. ?? Keep lights dim if bright lights bother you and make your migraines worse. SEEK IMMEDIATE MEDICAL CARE IF: ?? Your migraine becomes severe. ?? You have a fever. ?? You have a stiff neck. ?? You have vision loss. ?? You have muscular weakness or loss of muscle control. ?? You start losing your balance or have trouble walking. ?? You feel faint or pass out. ?? You have severe symptoms that are different from your first symptoms. MAKE SURE YOU: ?? Understand these instructions. ?? Will watch your condition. ?? Will get help right away if you are not doing well or get worse. Document Released: 04/15/2006 Document Revised: 07/07/2012 Document Reviewed: 04/04/2012 ExitCare?? Patient Information ??2013 [employer]. TRONICS LEAD * Discharge Instructions* Document, Scanned - 03/05/2013 8:14 PM ELECTRONICS LEAD TRONICS LEAD documented in this encounter Medications at Time of Discharge Medication Sig Dispensed Refills Start Date End Date azithromycin (ZITHROMAX) 250 mg pakIndications:Pneumonia Take 250 Kits by mouth as directed for 5 days. Take 2 tabs on day #1, and then1 tab po from day #2 - 5. 6 Tab 0 03/02/2013 03/07/2013 Clobetasol Propionate (CLOBEX SPRAY EX)Indications:Pneumonia as needed 04/2015 topiramate (TOPAMAX) 25 MG tablet Take 1 Tab by mouth 2 times daily. Doctor visit before any further refills 60 Tab 2 12/20/2012 11/08/2013 documented as of this encounter ED Notes * Karina Rodriguez RN - 03/04/2013 5:43 PM CST Pt awake and alert sitting on bedside watching tv and talking to parents during discharge teaching.Opportunity for questions, mom verbalized understanding of instructions. TRONICS LEAD * Meron Parada MD - 03/04/2013 5:36 PM CST Images from the original note were not included. EMERGENCY DEPARTMENT 03/04/2013 Dear Doctor, We had the pleasure of caring for your patient, Brandy Gallardo in our emergency department on 03/04/2013. A note from the provider(s) who cared for your patient is attached. Should you wish to access any laboratory results, please call . Should you wish to access any radiology results, please call , option 3. In addition, you can access patient information 24 hours a day, from any computer, through [employer], the online version of our electronic medical record. If you would like to use this service, please call Magdalene Gates, Connectivity Coordinator, at . We appreciate the opportunity to care for your patients. If you would like additional information, please call the emergency department directly at . Sincerely, Meron Parada MD Division of Emergency Medicine [facility], [place] [facility] DES[facility] EMERGENCY DEPARTMENT Provider contact with the patient: 03/04/2013 17:36 Brandy Gallardo [id number] [facility] EMERGENCY [facility]PARTMENT History Chief Complaint Patient presents with ??? DEHYDRATION x 10 days ill started with cold symptoms. flu/strep negative 02/26. has cough , chest pain with cough. has ??? Pain Head hx migrane GARCIA. states HA10/10now. some nausea- also to be tested for celiac disease.did not take topamax for garcia.void last yesterday HPI 17 y/o female, here with parent. Hx from both. Pt has been having URI sx, dry cough over about 10 days, now having some chest pain ferdinand with cough. No hx asthma or wheezing. Also complaining of sore throat, was seen at OSH about a week ago, had neg strep swab, dx probable viral illness. Still having frequent cough, seen by PCP a few days ago, exam c/w pnuemonia clinically, Rx azithromycin. Pt still having cough, sore throat, not eating well, not taking fluids well and dec UOP. Seen again by PCP and referred to ED for dehydration, has lost up to 5 lbs by outside scales, having ongoing coughand not feeling well, now with headache as well. Some nausea, no vomiting. PMHx as below, concussion after a sledding accident, has migraines. Also has had abdominal problems, is being tested for celiac ds. Past Medical History Diagnosis Date ??? Concussion 2006 while sledding, hit head ??? Psoriasis Past Surgical History Procedure Date ??? Negative surgical history History Social History ??? Marital Status: Single Spouse Name: N/A Number of Children: N/A ??? Years of Education: N/A Occupational History ??? Not on file. Social History Main Topics ??? Smoking status: Not on file ??? Smokeless tobacco: Not on file ??? Alcohol Use: Not on file ??? Drug Use: Not on file ??? Sexually Active: Not on file Other Topics Concern ??? Not on file Social History Narrative Brandy lives at home with her parents and younger brother. She is in high school Medications Current Outpatient Prescriptions Medication Status Sig Dispense Refill ??? Clobetasol Propionate (CLOBEX SPRAY EX) Active ??? azithromycin (ZITHROMAX) 250 mg vanesa Active Take 250 Kits by mouth as directed for 5 days. Take 2 tabs on day #1, and then1 tab po from day #2 - 5. 6 Tab 0 ??? topiramate (TOPAMAX) 25 MG tablet Active Take 1 Tab by mouth 2 times daily. Doctor visit beforeany further refills 60 Tab 2 Review of Systems Review of Systems Constitutional: Positive for fever, activity change, appetite change, fatigue and unexpected weightchange. Negative for chills. HENT: Positive for congestion and sore throat. Negative for facial swelling, trouble swallowing, neck pain and neck stiffness. Eyes: Negative for photophobia and redness. Respiratory: Positive for cough. Negative for wheezing. Cardiovascular: Positive for chest pain. Gastrointestinal: Positive for nausea. Negative for vomiting, abdominal pain and diarrhea. Genitourinary: Positive for decreased urine volume. Negative for dysuria, hematuria and menstrual problem. Musculoskeletal: Negative for gait problem. Skin: Negative for color change, pallor and rash. Neurological: Positive for dizziness and headaches. Negative for weakness. Psychiatric/Behavioral: Negative for confusion. All other systems reviewed and are negative. BP 98/62 Pulse 96 Temp 97.8 ??F Resp 18 Wt 45.4 kg (100 lb 1.4 oz) Physical Exam Physical Exam Constitutional: She is oriented to person, place, and time. She appears well- developed and well-nourished. Appears tired, is alert and cooperative, no toxic appearing. HENT: Head: Normocephalic and atraumatic. Nose: Nose normal. Mouth/Throat: Oropharynx is clear and moist. No oropharyngeal exudate. Eyes: Conjunctivae normal and EOM are normal. Pupils are equal, round, and reactive to light. No scleral icterus. Neck: Normal range of motion. Neck supple. Cardiovascular: Normal rate and regular rhythm. Pulmonary/Chest: Effort normal and breath sounds normal. No respiratory distress. She has no wheezes. She exhibits tenderness. Some TTP of chest wall - reproduces pain Abdominal: Soft. Bowel sounds are normal. She exhibits no distension. There is no tenderness. Thereis no guarding. Musculoskeletal: Normal range of motion. She exhibits no edema and no tenderness. Lymphadenopathy: She has no cervical adenopathy. Neurological: She is alert and oriented to person, place, and time. No cranial nerve deficit. She exhibits normal muscle tone. Skin: Skin is warm and dry. No rash noted. No pallor. Psychiatric: Her behavior is normal. Procedures Procedures Lab/SPO2 Interpretation Progress Notes ED Course Pt with ongoing sx of cough, sore throat, fever. CXR neg today. Chest pain appears to be musculoskeletal due to coughing. Now having GARCIA as well, c/w migraine. Has normal CBC, CMP, UA and neg monospot. Pt with evidence of dehydration, improved with a liter of NS> Headache also improved with toradol and benadryl. Probable prolonged viral illness, is improved sufficiently to continue supportive care at home, parents agreeable with plan. Pt will f/u with GI as planned. Medical Decision Making I have interpreted the following results: Labs and X-Ray. I have discussed the case with Family/Caregiver. I have personally seen and examined this patient. I have fully participated in the care of this patient. I have reviewed all pertinent clinical information available to me during this encounter, including history, physical exam and plan. I have reviewed available labs and radiographic studies. I reviewed the nurses notes I reviewed the vital signs Clinical Impression Final diagnoses: Chest pain Migraine (Primary) Dehydration z TRONICS LEAD * Karina Rodriguez RN - 03/04/2013 5:[address] Parada at bedside. TRONICS LEAD * Karina Rodriguez RN - 03/04/2013 4:30 PM CST Okay for pt to have clear liquids per Dr. Parada. Pt given mercedez mist. Tolerating fluids well. TRONICS LEAD * Mandi Nagy RN - 03/04/2013 4:19 PM CST Pt up to void at this time. TRONICS LEAD * Karina Rodriguez RN - 03/04/2013 3:42 PM CST Pt resting quietly watching tv. Parents at bedside. TRONICS LEAD * Karina Rodriguez RN - 03/04/2013 3:24 PM CST Pt given pillow and resting quietly. TRONICS LEAD * Karina Rodriguez RN - 03/04/2013 3:07 PM CST Pt resting comfortably. No WOB noted. TRONICS LEAD * Karina Rodriguez RN - 03/04/2013 2:06 PM CST PT escorted to Xray by Zach ([facility]) TRONICS LEAD * Karina Rodriguez RN - 03/04/2013 2:00 PM CST Pt sleeping upon reassessment. No dizziness noted. TRONICS LEAD * Karina Rodriguez RN - 03/04/2013 1:55 PM CST Pt complaining of dizziness, Dr. Parada notified. TRONICS LEAD documented in this encounter Miscellaneous Notes * Miscellaneous Scans - Document, Scanned - 03/05/2013 8:14 PM CST TRONICS LEAD documented in this encounter Plan of Treatment Not on file documented as of this encounter Procedures Procedure Name Priority Date/Time Associated Diagnosis Comments XR CHEST 2VW STAT 03/04/2013 2:10 PM ELECTRONICS LEAD Chest pain MONONUCLEOSIS SCREEN STAT 03/04/2013 1:19 PM ELECTRONICS LEAD CBC W AUTO DIFFERENTIAL STAT 03/04/2013 1:19 PM ELECTRONICS LEAD COMPREHENSIVE METABOLIC PANEL STAT 03/04/2013 1:19 PM ELECTRONICS LEAD DIFFERENTIAL MANUAL STAT 03/04/2013 1 :19 PM ELECTRONICS LEAD documented in this encounter Results * XR CHEST PA AND LATERAL(most commonly ordered) (03/04/2013 2:10 PM ELECTRONICS LEAD) Anatomical Region Laterality Modality Chest Radiographic Ashley ging 03/04/2013 2:12 PM ELECTRONICS LEAD Impressions 03/04/2013 2:13 PM ELECTRONICS LEAD No focal infiltrate. Narrative 03/04/2013 2:13 PM ELECTRONICS LEAD 2 views of the chest performed March [...] RDERABLES * MONONUCLEOSIS SCREEN (03/04/2013 1:19 PM ELECTRONICS LEAD) Mononucleosis Screen Negative Negative 03/04/2013 2:56 PM ELECTRONICS LEAD [facility] Blood BLOOD SPECIMEN / Unknown 03/04/2013 1:19 PM ELECTRONICS LEAD 03/04/2013 1:26 PM ELECTRONICS LEAD Meron Parada MD LAB - CHEMISTRY LIZZY LEPE [facility] [address] [facility] [place] [address] * (ABNORMAL) COMPREHENSIVE METABOLIC PANEL (03/04/2013 1:19 PM [facility]) Glucose 85 70 - 105 mg/dL 03/04/2013 1:51 PM [facility] Sodium 141 136 - 145 mmol/L 03/04/2013 1:51 PM [facility] Potassium 3.7 3.5 - 5.1 mmol/L 03/04/2013 1:51 PM [facility] Chloride 106 98 - 107 mmol/L 03/04/2013 1:51 PM [facility] CO2 21 20 - 28 mmol/L 03/04/2013 1:51 PM [facility] Calcium 10.23 9.08 - 10.48 mg/dL 03/04/2013 1:51 PM [facility] Anion Gap 14 5 - 20 mmol/L 03/04/2013 1:51 PM [facility] BUN 11.4 5.3 - 18.7 mg/dL 03/04/2013 1:51 PM [facility] Creatinine 0.64 0.61 - 1.07 mg/dL 03/04/2013 1:51 PM [facility] eGFR by MDRD >60 mL/min/1.7 3m2 03/04/2013 1:51 PM [facility] Comment:eGFR calculations ar e not performed for children under 18 years old. eGFR by MDRD >60 mL/min/1.7 3m2 03/04/2013 1:51 PM [facility] Comment:eGFR calculations ar e not performed for children under 18 years old. Alkaline Phosphatase 84(L) 100 - 390 U/L 03/04/2013 1:51 PM [facility] ALT 14 8 - 65 U/L 03/04/2013 1:51 PM [facility] AST 17 3 - 35 U/L 03/04/2013 1:51 PM [facility] Protein Total 8.1 6.3 - 8.2 gm/dL 03/04/2013 1:51 PM [facility] Albumin 4.2 3.3 - 4.9 gm/dL 03/04/2013 1:51 PM [facility] Bilirubin Total 0.4 0.3 - 1.2 mg/dL 03/04/2013 1:51 PM [facility] Blood BLOOD SPECIMEN / Unknown 03/04/2013 1:19 PM ELECTRONICS LEAD 03/04/2013 1:30 PM ELECTRONICS LEAD Meron Parada MD LAB - CHEMISTRY ORDE RABLES [facility] [address] [place] [id number] * (ABNORMAL) CBC W AUTO DIFFERENTIAL (03/04/2013 1:19 PM ELECTRONICS LEAD) [facility] WBC 11.2(H) 4.5 - 11.0 x10^9/L 03/04/2013 1:35 PM [facility] RBC 4.52 4.10 - 5.10 x10^12/L 03/04/2013 1:35 PM [facility] Hemoglobin 12.7 12.0 - 16.0 gm/dL 03/04/2013 1:35 PM [facility] Hematocrit 38.0 36.0 - 47.0 % 03/04/2013 1:35 PM [facility] MCV 84.1 78.0 - 98.0 fl 03/04/2013 1:35 PM [facility] MCH 28.1 25.0 - 35.0 pg 03/04/2013 1:35 PM [facility] MCHC 33.4 31.0 - 37.0 gm/dL 03/04/2013 1:35 PM [facility] Platelet Count 328 100 - 400 x10^9/L 03/04/2013 1:35 PM [facility] RDW-CV 13.3 11.5 - 14.0 % 03/04/2013 1:35 PM [facility] MPV 10.7(H) 6.0 - 9.5 fl 03/04/2013 1:35 PM [facility] Hematology Reflex Status Manual Diff to follow 03/04/2013 1:35 PM [facility] Blood BLOOD SPECIMEN / Unknown 03/04/2013 1:19 PM ELECTRONICS LEAD 03/04/2013 1:26 PM ELECTRONICS LEAD Meron Parada MD LAB - HEMATOLOGY ORD ERABLES [facility] [address] [place] [address] * DIFFERENTIAL MANUAL (03/04/2013 1:19 PM ELECTRONICS LEAD) WBC Auto 11.2 x10^9/L 03/04/2013 2:45 PM [facility] Neutrophil % Manual 74 31 - 78 % 03/04/2013 2:45 PM [facility] Lymphocytes % Manual 16 13 - 54 % 03/04/2013 2:45 PM [facility] Monocytes % Manual 6 4 - 13 % 03/04/2013 2:45 PM [facility] Eosinophils % Manual 3 0 - 8 % 03/04/2013 2:45 PM [facility] Basophils % Manual 1 % 03/04/2013 2:45 PM [facility] Cells Counted 100 # cells 03/04/2013 2:45 PM [facility] Platelet Estimation Adequate platelets Normal, Adequate platelets 03/04/2013 2:45 PM [facility] RBC Morphology Normal 03/04/2013 2:45 PM [facility] WBC Morph Normal 03/04/2013 2:45 PM [facility] Blood BLOOD SPECIMEN / Unknown 03/04/2013 1:19 PM ELECTRONICS LEAD 03/04/2013 1:26 PM ELECTRONICS LEAD Meron Parada MD LAB - HEMATOLOGY ORD ERABLES Performing Organization Address [facility]/State/[facility] Co de Phone Number [facility] [address] [place] [address] documented in this encounter Visit Diagnoses Diagnosis Migraine- Primary Chest pain Dehydration Cough Fever, unspecified documented in this encounter Administered Medications Inactive Administered Medications - up to 3 most recent administrations Medication Order MAR Action Action Date Dose Rate Site 0.9% NaCl infusion at 1,000 mL/hr, Intravenous, ONCE, 1 dose, On Sat03/04/13 at 1315 $ Given 03/04/2013 1:22 PM ELECTRONICS LEAD 1000 mL/hr diphenhydrAMINE (BENADRYL) injection 50 mg 50 mg (1.1 mg/kg), Intravenous, ONCE, 1 dose, On Sat03/04/13 at 1315, Max intravenous rate = 25 mg/min $ Given 03/04/2013 1:22 PM ELECTRONICS LEAD 50 mg ketorolac (TORADOL) injection 20 mg 20 mg (0.441 mg/kg), Intravenous, ONCE, 1 dose, On Sat03/04/13 at 1315, . WASTE DISPOSAL INSTRUCTIONS: Black Bin Disposal required. $ Given 03/04/2013 1:23 PM ELECTRONICS LEAD 20 mg metoclopramide (REGLAN) injection 9 mg 9 mg (0.198 mg/kg), Intravenous, EVERY 6 HOURS PRN, Nausea/Vomiting, Starting on Sat03/04/13 at 1256, Until Sat03/04/13 at 1845, Infuse over 15-30 minutes. $ Given 03/04/2013 1:22 PM ELECTRONICS LEAD 9 mg documented in this encounter Active and Recently Administered Medications Times are shown in ELECTRONICS LEAD. Scheduled Medication Order 03/02/2013 03/03/2013 03/04/2013 0.9% NaCl infusion (COMPLETED) at 1,000 mL/hr, Intravenous, ONCE, 1 dose, On Sat03/04/13 at 1315 1322 ($ Given - Prov ider: Karina Rodriguez RN) diphenhydrAMINE (BENADRYL) injection 50 mg (COMPLETED) 50 mg (1.1 mg/kg), Intravenous, ONCE, 1 dose, On Sat03/04/13 at 1315, Max intravenous rate = 25 mg/min 1322 ($ Given - Prov ider: Karina Rodriguez RN) ketorolac (TORADOL) injection 20 mg (COMPLETED) 20 mg (0.441 mg/kg), Intravenous, ONCE, 1 dose, On Sat03/04/13 at 1315, . WASTE DISPOSAL INSTRUCTIONS: Black Bin Disposal required. 1323 ($ Given - Prov ider: Karina Rodriguez RN) PRN Medication Order 03/02/2013 03/03/2013 03/04/2013 metoclopramide (REGLAN) injection 9 mg (CANCELED) 9 mg (0.198 mg/kg), Intravenous, EVERY 6 HOURS PRN, Nausea/Vomiting, Starting on Sat03/04/13 at 1256, Until Sat03/04/13 at 1845, Infuse over 15-30 minutes. 1322 ($ Given - Prov ider: Karina Rodriguez RN) documented in this encounter
--- OUTSIDE RECORDS SUMMARY | 2024-04-25 11:11 | XMS_ITS | Encounter Summary ---
Author Organization [facility] Address [address] [place] [address] Care Team Providers Care Glove Stitcher Name Role Phone Unavailable Primary Care Provider Unavailabl e Reason for Visit * Reason Onset Date Comments Results 03/23/2013 Encounter Details Date Type Department Care Team (Late st Contact Info) Description 03/23/2013 Telephone [facility] - [address] [place] [address] Alondra Walls MD [address] [place] [address] Results Social History Tobacco Use Types Packs/Day Years Used Date Smoking Tobacco: Never Sex and Gender Information Value Date Recorded Sex Assigned at Not on file Gender Identity Not on file Sexual Orientation Not on file documented as of this encounter Miscellaneous Notes * Telephone Encounter - Rebecca Varma RN - 03/25/2013 1:05 PM CST Talked to dad ... They are switching insurance and they will call back with lab for Vitamin D levelafter the first of the year. They will also make 6 month FU appt. ILES PRINTER * Telephone Encounter - Alondra Walls MD - 03/25/2013 12:59 PM CST Will you call family to help arrange for Vitamin D to be checked in 3months? Brandy should follow up with me in 6 months. Thanks! ILES PRINTER * Telephone Encounter - Alondra Walls MD - 03/23/2013 10:33 AM CST MOISES 0- Talked to Brandy's dad about biopsy results. Confirmed clinical suspicion of celiac disease. Brandy and had received gluten free diet education in detail by Florinda Bennett at last clinic visit. Willimplement changes. Told dad I should see Brandy in follow up in 6 months to recheck celic serology Her Vitamin D was also quite low - I have called in Vitamin D 2000 IU/day for next 12 weeks (3 months). Then will recheck VItamin D in 3 months time . Dad will call us back to let us know which lab to send orders for Vitamin D ILES PRINTER documented in this encounter Plan of Treatment Not on file documented as of this encounter Visit Diagnoses Not on filedocumented in this encounter
--- OUTSIDE RECORDS SUMMARY | 2024-04-25 11:11 | XMS_ITS | Encounter Summary ---
Author Organization [facility] Address [address] [place] [address] Care Team Providers Care Ice Rink Attendant Name Role Phone Unavailable Primary Care Provider Unavailabl e Reason for Visit * Reason Onset Date Comments MEDICATION REFILL 06/22/2014 Encounter Details Date Type Department Care Team (Late st Contact Info) Description 06/22/2014 Refill [facility] - Pediatrics [address] [place] [phone] Angie Sung MD [address] [place] [phone] MEDICATION REFILL Social History Tobacco Use [...] encounter Miscellaneous Notes * Telephone Encounter - Vivek Madrid - 06/22/2014 3:09 PM CST Refill Topamax and Zoloft MANAGEMENT RN documented in this encounter Plan of Treatment Not on file documented as of this encounter Visit Diagnoses Not on filedocumented in this encounter
--- OUTSIDE RECORDS SUMMARY | 2024-04-25 11:11 | XMS_ITS | Encounter Summary ---
Author Organization [facility] Address [address] [address] Care Team Providers Care Hat Blocking Operator Name Role Phone Unavailable Primary Care Provider Unavailabl e Reason for Visit * Reason Onset Date Comments Scheduling 02/27/2013 EGD Encounter Details Date Type Department Care Team (Late st Contact Info) Description 02/27/2013 Telephone [facility] - [address] [place] [address] Alondra Walls MD [address] [place] [address] Scheduling (EGD) Social History Tobacco Use Types Packs/Day Years Used Date Smoking Tobacco: Never Assessed Sex and Gender Information Value Date Recorded Sex Assigned at Not on file Gender Identity Not on file Sexual Orientation Not on file documented as of this encounter Miscellaneous Notes * Telephone Encounter - Mohini Edwards - 02/27/2013 3:11 PM CDT Dad called today to reschedule procedure, patient is sick. Moved to 03/19/13 at 9 am documented in this encounter Plan of Treatment Not on file documented as of this encounter Visit Diagnoses Not on filedocumented in this encounter
--- OUTSIDE RECORDS SUMMARY | 2024-04-25 11:11 | XMS_ITS | Encounter Summary ---
Author Organization [facility] Address [address] [facility] [place] [address] Care Team Providers Care Flight Service Specialist Name Role Phone Unavailable Primary Care Provider Unavailabl e Reason for Visit * Auth/Cert - Closed Specialty Diagnoses / Procedures Referred By Steve t Referred To Contact Diagnoses Other and unspecified nonspecific immunological findings Procedures ENDOSCOPY GI UPPER DIAGNOSTIC Referral ID Status Reason Start Date Expiration Date Visits Re quested Visits Authorized [id number] Closed 1 1 Encounter Details Date Type Department Care Team (Late st Contact Info) Description 03/19/2013 8:53 AM BOOK OR SCRIPT EDITOR Anesthesia Event [facility] - Endoscopy [address] [place] [address] Heather Godinez MD [address] [place] [address] Сергей Dyer, [address] [place] [address] Anesthesia Record Procedure Summary Procedure Name Responsible Anesthesiologist Anesthesia Start Time Anesthesia Stop Time ENDOSCOPY GI UPPER DIAGNOSTIC Heather Godinez MD 03/19/13 0853 03/19/13 0927 Events Date Time Event Comment 03/19/2013 0853 An Start 0853 An Start Data 0902 An Induction 0924 an stop data 0925 Elect Sign The providers l isted as staff are the responsible providers for the case. 09 An Stop Meds Name Total fentaNYL (SUBLIMAZE) 50 mcg/ml 30 mcg propofol (DIPRIVAN) 10 mg/mL 80 mg propofol (DIPRIVAN) 10 mg/mL 290.25 mg midazolam (VERSED) 5 mg/mL injection 2 m g * Agents Name Insp. N2O Exp. Sevoflurane Insp. Sevoflurane * Blood No blood administrations on file. Lines, Drains, and Airways Type Details Placement Removal Peripheral IV Date: 03/19/13; Time: 0900; Orientation: Right; Placed By: Dr Godinez 03/19/13 0900 by Сергей Dyer DO 03/19/13 1030 by Catherine Langley RN RETIRED Procedural Site 03/19/13; 0925; Mouth; 03/19/13; 1038 03/19/13 0925 by Catherine Langley RN 03/19/13 1038 by Catherine Langley RN documented in this encounter Social History Tobacco Use Types Packs/Day Years Used Date Smoking Tobacco: Never Sex and Gender Information Value Date Recorded Sex Assigned at Not on file Gender Identity Not on file Sexual Orientation Not on file documented as of this encounter Progress Notes * Heather Godinez MD - 03/19/2013 10:20 AM CST ANESTHESIA POSTPROCEDURE EVALUATION Brandy Gallardo is a 17 y.o. female Temp: 36.8 ??C Pulse: 59 Resp: 16 BP: 99/52 mmHg SpO2: 100 % Pain Rating Score #: 0 Mental status: sufficiently recovered from acute administration of anesthesia to participate in theevaluation. Level of consciousness: sedated General appearance: well-appearing Respiratory function: natural airway. Cardiac: stable Pain: comfortable/acceptable PONV: None Postop hydration: adequate. Final anesthesia type: general mask Patient may be released from anesthesia care. OR SCRIPT EDITOR documented in this encounter Consult Notes * Heather Godinez MD - 03/19/2013 8:33 AM CST Pre-anesthesia Evaluation Procedure(s) (LRB): ENDOSCOPY GI UPPER DIAGNOSTIC () Vital Signs: Temp: [37 ??C] Pulse: [84] Resp: [16] SpO2: [100 %] BMI: Estimated Body mass index is 18.90 kg/(m^2) as calculated from the following: Height as of an earlier encounter on 03/19/13: 5' 1.024 (1.55 m). Weight as of 03/04/13: 100 lb 1.4 oz(45.4 kg). History: Past Medical History Diagnosis Date ??? Concussion 2006 while sledding, hit head ??? Psoriasis Past Surgical History Procedure Date ??? Negative surgical history reports that she has never smoked. She does not have any smokeless tobacco history on file. Allergies: is allergic to fish allergy and donatussin. Medications: Prescriptions prior to admission Medication Status Sig Dispense Refill ??? topiramate (TOPAMAX) 25 MG tablet Active Take 1 Tab by mouth 2 times daily. Doctor visit beforeany further refills 60 Tab 2 ??? Clobetasol Propionate (CLOBEX SPRAY EX) Active No current facility-administered medications for this visit. No current outpatient prescriptions on file. Facility-Administered Medications Ordered in Other Visits: lidocaine (LMX 4) 4 % cream, Completed, , Topical, Once, Alondra Walls MD, 1 Tube at 03/19/13 0750 Physical Exam: NPO status: since midnight Oriented to person, place and time Airway: I Neck ROM: full Dental exam findings: normal/ok Pulmonary exam: breath sounds CTA Heart sounds: S1 S2 Positive for gastroesophageal reflux disease Plan for Anesthesia: ASA Score: 2. ASA Comments: celiac Anesthesia plan: general Planned method of induction: intravenous Planned postop destination: PACU Anesthesia plan, risks and benefits discussed with mother and father Anesthesia consent: obtained Plan accepted yes Discussed anesthesia plan with: anesthesiologist. OR SCRIPT EDITOR documented in this encounter Plan of Treatment Not on file documented as of this encounter Visit Diagnoses Not on filedocumented in this encounter Administered Medications Inactive Administered Medications - up to 3 most recent administrations Medication Order MAR Action Action Date Dose Rate Site fentaNYL (SUBLIMAZE) injection PRN, Starting on Betty 03/19/13 at 0902, Until Sat03/23/13 at 0744, Anesthesia Intra-op $ Given 03/19/2013 9:11 AM BOOK OR SCRIPT EDITOR 10 mcg $ Given 03/19/2013 9:10 AM BOOK OR SCRIPT EDITOR 10 mcg $ Given 03/19/2013 9:02 AM BOOK OR SCRIPT EDITOR 10 mcg midazolam (VERSED) injection PRN, Starting on Betty 03/19/13 at 0907, Until Sat03/23/13 at 0744, Anesthesia Intra-op $ Given 03/19/2013 9:07 AM BOOK OR SCRIPT EDITOR 2 mg propofol (DIPRIVAN) 10 mg/ml injection CONTINUOUS PRN, Sedation, Starting on Betty 03/19/13 at 0902, Until Sat03/23/13 at 0744, Anesthesia Intra-op Rate Change 03/19/2013 9:17 AM BOOK OR SCRIPT EDITOR 200 mcg/kg/min 51.6 mL/hr Rate Change 03/19/2013 9:12 AM BOOK OR SCRIPT EDITOR 350 mcg/kg/min 90.3 mL/ hr $ New Bag/Syringe 03/19/2013 9:02 AM BOOK OR SCRIPT EDITOR 300 mcg/kg/min 77 .4 mL/hr propofol (DIPRIVAN) 10 mg/ml injection PRN, Sedation, Starting on Betty 03/19/13 at 0902, Until Sat03/23/13 at 0744, Anesthesia Intra-op $ Given 03/19/2013 9:11 AM BOOK OR SCRIPT EDITOR 20 mg $ Given 03/19/2013 9:10 AM BOOK OR SCRIPT EDITOR 20 mg $ Given 03/19/2013 9:05 AM BOOK OR SCRIPT EDITOR 20 mg documented in this encounter
--- OUTSIDE RECORDS SUMMARY | 2024-04-25 11:11 | XMS_ITS | Encounter Summary ---
Author Organization [facility] Address [address] [place] [address] Care Team Providers Care Manager Deli Name Role Phone Unavailable Primary Care Provider Unavailabl e Reason for Visit * Reason Comments Follow-up headaches better; garcia s had only 3 in past month since starting medication; those 3 lasted 4 hours and were related to menses STIFF NECK X 1 day, neck hurts on left side Encounter Details Date Type Department Care Team (Late st Contact Info) Description 06/19/2012 9:30 AM BRINE MAKER Office Visit [facility] Medical [facility] - Pediatrics [address] [place] [address] [place] [phone] Angie Sung MD [address] [place] [address] [phone] Migraine (Primary Dx); Other follow-up examination; Neck strain Social History Tobacco Use Types Packs/Day Years Used Date Smoking Tobacco: Never Assessed Sex and Gender Information Value Date Recorded Sex Assigned at Not on file Gender Identity Not on file Sexual Orientation Not on file documented as of this encounter Last Filed Vital Signs Vital Sign Reading Time Taken Comments Blood Pressure 98/50 06/19/2012 9:25 AM BRINE MAKER Pulse - - Temperature 37.3 ??C (99.2 ??F) 06/19/2012 9:25 AM CS T Respiratory Rate - - Oxygen Saturation - - Inhaled Oxygen Concentration - - Weight 48.9 kg (107 lb 12.8 oz) 06/19/2012 9:25 AM BRINE MAKER Height - - Body Mass Index - - documented in this encounter Progress Notes * Angie Sung MD - 06/19/2012 9:37 AM CST Brandy is here for follow up of chronic headaches. About a month ago she was started on topamax 25 mgBID. She reports her headaches are much improved. She was having GARCIA 3-4 times per week, but in the last month had only 3-4 headaches that were related to menses. aleve doesn't seem to help when she takes it. She takes one tab. She has also had a sore stiff left neck since waking yesterday AM. Hurts when turning head to left. No fever. No URI sx. PE: Gen-well appearing HEENT: throat clear Neck: muscles to left neck are tight , tender to palpation. Unable to turn neck fully to left due to pain. Pain with looking downwards. Resp: CTA CV: nL w/o M Impression: 1.Follow up headaches-improved. 2. Neck muscle strain Plan: 1. Keep on current dose of topamax. Call for refill when needed. Follow up in 3-4 months. May use 1.5 tabs of aleve for acute relief. 2. Aleve, heating pad, flex-all cream prn E MAKER documented in this encounter Plan of Treatment Not on file documented as of this encounter Visit Diagnoses Diagnosis Migraine- Primary Migraine, unspecified, without mention of intractable migraine without mention of status migrainosus Other follow-up examination(V67.59) Other follow-up examination Neck strain Sprain of neck documented in this encounter
--- OUTSIDE RECORDS SUMMARY | 2024-04-25 11:11 | XMS_ITS | Encounter Summary ---
Author Organization [facility] Address [address] [place] [address] Care Team Providers Care Test Design Engineer Name Role Phone Unavailable Primary Care Provider Unavailabl e Reason for Visit * Reason Comments URI sx x 1 week, runny n ose, cough, low grade fever ^100.4, headache, sore throat, strep and flu negative at ER past Encounter Details Date Type Department Care Team (Late st Contact Info) Description 03/02/2013 1:45 PM CASHIER CREDIT Office Visit [facility] Medical [facility] - Pediatrics [address] [place] [address] [address] [place] [phone] Shreya Field MD [address] [place] [address] Pneumonia (Primary Dx) Social History Tobacco Use Types Packs/Day Years Used Date Smoking Tobacco: Never Assessed Sex and Gender Information Value Date Recorded Sex Assigned at Not on file Gender Identity Not on file Sexual Orientation Not on file documented as of this encounter Last Filed Vital Signs Vital Sign Reading Time Taken Comments Blood Pressure - - Pulse - - Temperature 38 ??C (100.4 ??F) 03/02/2013 1: 45 PM CASHIER CREDIT took ibuprofen this AM at 0700 Respiratory Rate - - Oxygen Saturation - - Inhaled Oxygen Concentration - - Weight 47.4 kg (104 lb 6.4 oz) 03/02/2013 1:45 PM CASHIER CREDIT Height - - Body Mass Index - - documented in this encounter Progress Notes * Shreya Field MD - 03/02/2013 2:04 PM CST SUBJECTIVE: Brandy Gallardo is a 17 y.o. female brought by mother with complaints of congestion and productive cough for 1 weeks Sore Throat :Yes Fever: Yes, for a few days, 100.4 today sx x 1 week, runny nose, cough, low grade fever ^100.4, headache, sore throat, strep and flu negative at ER past normal activity, mood and playfulness, normal appetite and normal fluid intake. OBJECTIVE: Temp 100.4 ??F (Temporal Artery) Wt 47.356 kg (104 lb 6.4 oz) General appearance: alert, well appearing, and in no distress. Ears: bilateral TM's and external ear canals normal Nose: normal and patent, no erythema, discharge or polyps Oropharynx: mucous membranes moist, pharynx normal without lesions Neck: supple, no significant adenopathy Lungs: no tachypnea, retractions or cyanosis, bilateral bronchial breath sounds, no rales, no wheezes Heart - regular rate and rhythm, normal S1 and S2, no murmurs ASSESSMENT: pneumonia PLAN: z pack for five days Call if not better in a day or two IER CREDIT documented in this encounter Plan of Treatment Not on file documented as of this encounter Visit Diagnoses Diagnosis Pneumonia- Primary Pneumonia, organism unspecified documented in this encounter
--- OUTSIDE RECORDS SUMMARY | 2024-04-25 11:11 | XMS_ITS | Encounter Summary ---
Author Organization [facility] Address [address] [place] [address] Care Team Providers Care Machinist Name Role Phone Unavailable Primary Care Provider Unavailabl e Reason for Visit * Reason Comments Pain Abdominal daily x2 weeks Encounter Details Date Type Department Care Team (Late st Contact Info) Description 08/29/2012 10:45 AM CDT Office Visit [facility] Medical [facility] - Pediatrics [address] [place] [phone] Angie Sung MD [address] [place] [phone] Abdominal pain, unspecified site (Primary Dx); Hematuria, microscopic Social History Tobacco Use Types Packs/Day Years Used Date Smoking Tobacco: Never Assessed Sex and Gender Information Value Date Recorded Sex Assigned at Not on file Gender Identity Not on file Sexual Orientation Not on file documented as of this encounter Last Filed Vital Signs Vital Sign Reading Time Taken Comments Blood Pressure - - Pulse - - Temperature 37 ??C (98.6 ??F) 08/29/2012 10:50 AM CDT Respiratory Rate - - Oxygen Saturation - - Inhaled Oxygen Concentration - - Weight 46.9 kg (103 lb 4.8 oz) 08/29/2012 10:50 AM CDT Height - - Body Mass Index - - documented in this encounter Progress Notes * Florinda Stein RN - 09/01/2012 10:41 AM CDTQucrispin Note: Gave Dad info from Dr Sung. Dad said that pt took a laxative and then was better, that the pain was gone. Dad said that the urine test was about a week after pt's menstrual period so he'll have her come back in to give a urine sample when it isn't near that time of month. * Angie Sung MD - 09/01/2012 9:50 AM CDTQucrispin Note: Let Brandy or her family know that the urine tests I sent off came back normal. No sign of infection. Not sure why the blood was in her urine--unless it was close to her menses. Find out how she is doing-how's her pain? We also should repeat her urine test (unless her menses has started or was recent.) I would probably test it in a couple of weeks. * Shreya Field MD - 08/30/2012 11:15 AM CDT Spoke to mom, her pain is better today duller than yesterday, she is able to walk and move around. Her Xray shows moderately prominent stool in rectum and colon. Advised to give her Miralax and call us for a follow-up on Saturday her Labs are not back yet. * Angie Sung MD - 08/29/2012 11:03 AM CDT HPI: Brandy Gallardo, 16 y.o., female, here for evaluation of abdominal pain. Pain started 2 weeks ago -throughout the abdomen. Currently, pain is to left upper quadrant. She also has pain that is starting in left lower quadrant and shooting up to left upper. Pain is described as sharp, cramping, achey at different times. Length of sxs:sometimes minutes, sometimes, hours, sometimes all day Frequency: daily. Associated with meals: No Interferes with activity:Yes School missed:yes, earlier this week and today Fever: No. Vomiting: No, but she is nauseus this am, does get nausea associated with pain Diarrhea: No Constipation: yes, has a hx of constipation. Usually has BM QOD, sometimes difficult to pass Dysuria: No. Denies frequency, blood in urine Back Pain: No Per dad, poor diet-little fruits and veggies, fiber in diet Medications: fiber gummy daily Fhx: dad has hx of kidney stones PE: Temp(Src) 98.6 ??F (Temporal Artery) Wt 103 lb 4.8 oz (46.857 kg) Alert, Pale, looks uncomfortable Throat: normal Heart: Normal PMI. regular rate and rhythm, normal S1, S2, no murmurs or gallops. Lungs: Clear to auscultation and Normal breath sounds bilaterally Abdomen: soft, +tender to upper quadrants, no rebound CVA tenderness: No U/a: signif for blood Impression: Abdominal Pain--kidney stones vs constipation Plan: Send for KUB, cbc, cmp, esr Send urine cx, urine ca/cr ratio Will call later today for results Spoke with dad--labs are normal, xray just shows constipation. Constipation would explain some of pain, but doesn't explain blood that was in her urine. Brandy is lying down now. No fever. Per dad, ibuprofen seems to be controlling the pain. Offered perscription pain med if needed, but will constipate her more. Advised to monitor tonight and tomorrow-if pain worse or not improving next step would be CT to eval for stones. * Florinda Vasquez RN - 08/29/2012 10:52 AM CDT Brandy Gallardo is a 16 y.o. female accompanied to office today by Father for evaluation of abd pain, daily x2 weeks. Pt says pain is all over abd, cramping, sharp at times. Does have BM about 3x / week. Stools are at times, hard formed and difficult to pass. Problems with constipation in the past. Has recently started on fiber pill. documented in this encounter Plan of Treatment Not on file documented as of this encounter Procedures Procedure Name Priority Date/Time Associated Diagnosis Comments CALCIUM/CREAT RATIO URINE RANDOM PANEL Routine 08/29/2012 11:31 AM CDT Hematuria, microscopic CULTURE URINE Routine 08/29/2012 11:26 AM CDT Hematuria, microscopic URINALYSIS - POINT OF CARE Routine 08/29/2012 11:15 AM CDT Abdominal Pain, Unspecified Site ERYTHROCYTE SEDIMENTATION RATE Routine 08/29/2012 Abdominal Pain, Unspecified Site CBC W AUTO DIFFERENTIAL Routine 08/29/2012 Abdominal Pain, Unspecified Site COMPREHENSIVE METABOLIC PANEL Routine 08/29/2012 Abdominal Pain, Unspecified Site documented in this encounter Results * CALCIUM/CREAT RATIO URINE RANDOM PANEL (08/29/2012 [...] 8:33 PM CDT Narrative Resulting Agency Comment [facility] [address] ??[facility] access hospital [phone] Angie Sung MD LAB - URINE CHEMISTR Y ORDERABLES [facility] ACCOUNT BILL * CULTURE URINE (08/29/2012 11:26 AM CDT) Urine Culture Routine Final report [facility] ACCOUNT BILL Result 1 [facility] ACCOUNT BILL Comment: Mixed urogenital cuca 25,000-50,000 colony forming units per mL Urine specimen (specimen) URINE SPECIMEN FROM URINARY BLADDER / Unknown 08/29/2012 11:26 AM CDT 08/29/2012 8:31 PM CDT Narrative Resulting Agency Comment [facility] [place] [address] [facility] ??Critical access hospital [phone] Angie Sung MD LAB - MICROBIOLOGY O RDGRETTA Performing Organization Address [facility] Co de Phone Number [facility] ACCOUNT BILL * URINALYSIS - POINT OF CARE (08/29/2012 11:15 AM CDT) Clarity UA POCT clear Color UA POCT imani Leukocyte UA 1+ Negative Nitrite UA POCT neg Negative Urobilinogen UA POCT neg 0.1 - 1.0 EU/dL Protein UA POCT trace Negative pH UA 5 5.0 - 8.0 pH units Blood UA 250+ Negative Specific [place] UA POCT 1.010 1.002 - 1.030 Ketone UA neg Negative Bilirubin UA POCT neg Negative Glucose UA neg Negative Urine specimen (specimen) URINE / Unknown 08/29/2012 11:15 AM CDT Angie Sung MD LAB - POINT OF CARE ORDERABLES * SED RATE AUTO (ESR) (08/29/2012) Blood specimen (specimen) BLOOD SPECIMEN / Unknown Angie Sung MD LAB - HEMATOLOGY JUHI GLYNN Performing Organization Address [facility] Co de Phone Number [facility] RESULT SCAN * COMPREHENSIVE METABOLIC PANEL (08/29/2012) Blood specimen (specimen) BLOOD SPECIMEN / Unknown Angie Sung MD LAB - CHEMISTRY LIZZY LEPE Performing Organization Address [facility] Co de Phone Number [facility] RESULT SCAN * CBC W AUTO DIFFERENTIAL (08/29/2012) Blood specimen (specimen) BLOOD SPECIMEN / Unknown Angie Sung MD LAB - HEMATOLOGY ORD ERABLES [facility] RESULT SCAN * KUB (08/29/2012) Anatomical Region Laterality Modality Abdomen Other Angie Sung MD DIAGNOSTIC IMAGING O RDERABLES documented in this encounter Visit Diagnoses Diagnosis Abdominal pain, unspecified site- Primary Hematuria, microscopic Microscopic hematuria documented in this encounter
--- OUTSIDE RECORDS SUMMARY | 2024-04-25 11:11 | XMS_ITS | Encounter Summary ---
Author Organization [facility] Address [address] [place] [address] Care Team Providers Care Dashboard Developer Name Role Phone Unavailable Primary Care Provider Unavailabl e Reason for Visit * Reason Onset Date Comments Sinusitis 01/16/2014 Encounter Details Date Type Department Care Team (Late st Contact Info) Description 01/16/2014 Telephone [facility] - Pediatrics [address] [place] [phone] Angie Sung MD [address] [place] [phone] Sinusitis Social History Tobacco Use Types Packs/Day Years Used Date Smoking Tobacco: Never Sex and Gender Information Value Date Recorded Sex Assigned at Not on file Gender Identity Not on file Sexual Orientation Not on file documented as of this encounter Miscellaneous Notes * Telephone Encounter - Angie Sung MD - 01/16/2014 10:13 AM CDT Spoke with Mom-Brandy has had 3-4 weeks of nasal congestion, runny nose, sore throat, headaches. She feels warm, but hasn't taken her temperature. This am cheeks and forehead sinuses were painful when pressed on. Likely has sinus infection. Will send abx to pharmacy. * Telephone Encounter - Vivek Madrid - 01/16/2014 9:25 AM CDT Mom is sure that Brandy has a sinus infection. She has sinus pressure and pain, and feels like she has a fever. Mom and Dad are going out of town, and was wondering if you would call something in. documented in this encounter Plan of Treatment Not on file documented as of this encounter Visit Diagnoses Not on filedocumented in this encounter
--- OUTSIDE RECORDS SUMMARY | 2024-04-25 11:11 | XMS_ITS | Encounter Summary ---
Author Organization [facility] Address [address] [place] [address] Care Team Providers Care Cartridge Loading Operator Name Role Phone Unavailable Primary Care Provider Unavailabl e Encounter Details Date Type Department Care Team (Late st Contact Info) Description 09/10/2012 Orders Only [facility] Medical [facility] - Pediatrics [address] [place] [address] [place] [phone] Angie Sung MD [address] [place] [phone] Abdominal pain, unspecified site Social History Tobacco Use Types Packs/Day Years Used Date Smoking Tobacco: Never Assessed Sex and Gender Information Value Date Recorded Sex Assigned at Not on file Gender Identity Not on file Sexual Orientation Not on file documented as of this encounter Plan of Treatment Not on file documented as of this encounter Procedures Procedure Name Priority Date/Time Associated Diagnosis Comments XR ABDOMEN KUB Routine 08/29/2012 Abdominal Pain, Unspecified Site documented in this encounter Results * KUB (08/29/2012) Anatomical Region Laterality Modality Abdomen Other Angie Sung MD DIAGNOSTIC IMAGING O RDERABLES documented in this encounter Visit Diagnoses Diagnosis Abdominal pain, unspecified site documented in this encounter
--- OUTSIDE RECORDS SUMMARY | 2024-04-25 11:12 | XMS_ITS | Encounter Summary ---
Author Organization [facility] Address [address] [place] [address] Care Team Providers Care Bread Stacker Name Role Phone Unavailable Primary Care Provider Unavailabl e Reason for Visit * Reason Comments Complete Physical Exam 14 year well Encounter Details Date Type Department Care Team (Late st Contact Info) Description 04/10/2010 3:30 PM ACCOUNTANT CERTIFIED PUBLIC Office Visit [facility] Medical [facility] - Pediatrics [address] [place] [phone] Angie Sung MD [address] [place] [address] [phone] Well child check (Primary Dx); GERD without esophagitis; Psoriasis; Need vaccination-viral disease; Need for prophylactic vaccination and inoculation against influenza Social History Tobacco Use Types Packs/Day Years Used Date Smoking Tobacco: Never Assessed Sex and Gender Information Value Date Recorded Sex Assigned at Not on file Gender Identity Not on file Sexual Orientation Not on file documented as of this encounter Last Filed Vital Signs Vital Sign Reading Time Taken Comments Blood Pressure 102/65 04/10/2010 3:43 PM ACCOUNTANT CERTIFIED PUBLIC Pulse 77 04/10/2010 3:43 PM ACCOUNTANT CERTIFIED PUBLIC Temperature - - Respiratory Rate - - Oxygen Saturation - - Inhaled Oxygen Concentration - - Weight 50.1 kg (110 lb 6.4 oz) 04/10/2010 3:43 P M ACCOUNTANT CERTIFIED PUBLIC Height 151.1 cm (4' 11.5 ) 04/10/2010 3:43 PM CS T Body Mass Index 21.92 04/10/2010 3:43 PM ACCOUNTANT CERTIFIED PUBLIC Body Mass Index Percentile 75.14% 04/10/2010 3:4 3 PM ACCOUNTANT CERTIFIED PUBLIC Growth Chart: [facility] (Girls, 2- 20 Years) documented in this encounter Patient Instructions * Patient Instructions* Angie Sung MD - 04/10/2010 4:23 PM ACCOUNTANT CERTIFIED PUBLIC YOUR GROWING CHILD: ADOLESCENT Child???s Name: Brandy Gallardo Today???s Date: 04/10/2010 Wt Readings from Last 3 Encounters: 04/10/2010 110 lb 6.4 oz (50.077 kg) (48.44%) Ht Readings from Last 3 Encounters: 04/10/2010 4' 11.5 (1.511 m) (6.33%) Body mass index is 21.92 kg/(m^2). 75.21% of growth percentile based on BMI-for-age. 48.44% of growth percentile based on [id number]-[id number]. 6.33% of growth percentile based on gmjwvne-wgp-kfl. IMMUNIZATIONS At the time of high school physical you will receive a Tdap booster. Other immunizations which we recommend, but that are not required are Menactra (protects again one type of bacterial meningitis), Gardisil (protects girls and women against Human Papilloma Virus), and Hepatitis A vaccine if not already given. PROMOTION OF HEALTHY AND SAFE HABITS: Try to get 8 hours of sleep a night. Engage in moderately strenous to vigorous physical activity (e.g walking, biking, aerobics for 30 - 60 minutes) at least three times a week. Limit TV viewing, computer and video games to no more than 2 hours per day. INJURY AND VIOLENCE PREVENTION: Always wear a safety belt when driving or riding in a car. If you are driving, insist that your passengers wear safety belts. Concentrate when driving and avoid distractions(e.g talking on the phone,texting, playing loud music,eating). Do not drink alcohol, especially when driving, swimming, boating or operating farm equipment or other machinery. Plan to ride with a designated local company refrigerated truck driver or to call for a ride if drinking. Learn how to swim (if you haven't already learned). Learn first aid and CPR.Reduce your risk of developing skin cancer by limiting time in the sun and applying sunscreen before going outside. Don't forget to reapply sunscreen every 3-4 hours. Avoid tanning salons. Always wear a helmet when riding on a motorcycle, bike, or all-terrain vehicle. However, ATV's and motorcycles are dangerous, even with a helmet. Wear protective gear(e.g eye protection, mouth guard,helmet, knee and elbow pads) for sports and other physical activities such as in-line skating. Avoid high noise levels, especially when using ear phones. Do not carry or use a weapon of any kind. Seek help if you are physically or sexually abused or fear that you are in danger. MENTAL HEALTH: Seek help if you often feel angry, depressed, or hopeless for longer than 2 weeks at a time NUTRITION: Eat three nutritious meals a day at regularly scheduled times; breakfast is especially important. Select a healthy lunch from the school cafeteria or pack a balanced lunch instead of choosing foods and high sugar drinks from vending machines. Choose plenty of fruits and vegetables;breads, cereals, and other whole grain products; low-fat dairy; lean meats, chicken, fish and foods prepared with little or not fat. Include foods rich in calcium and iron in your diet. Choose nutritious snacks that are rich in complex carbohydrates. Limit high-fat or low-nutrient foods and beverages such as candy, chips, or soft drinks. ORAL HEALTH: [place] your teeth twice a day with a pea-size amount of fluoridated toothpaste, and floss between your teeth daily. Schedule a dental appointment every 6 months or as advised, ask your dental professsional how to handle dental emergencies, especially the loss or fracture of a tooth. Do not smoke or use chewing tobacco. PREVENTION OF SUBSTANCE USE/ABUSE: Do not smoke, use smokeless tobacco, drink alcohol, or use drugs, inhalants, diet pills, or steroids. If you smoke, talk with the health professional about how to stop smoking. If you use drugs or alcohol, discuss this with your health professional and ask for help. Support your friends who choose not to use tobacco, alcohol, drugs, steroids, or diet pills. PROMOTION OF RESPONSIBILITY: Follow family rules, such as those for curfews or driving. Share in electronic imager. Learn about how you can take on new responsibility in your family, peer group, and community. UNTANT CERTIFIED PUBLIC documented in this encounter Progress Notes * Angie Sung MD - 04/10/2010 4:[address] [facility] PATIENT Nurse Screen: Diet: Milk-rarely drinks due to possible intolerance (causes abdominal pain, gassiness) Eats cheese, other dairy without any problems. Vegetables: good, fruits: good, Dental: regular dental visits? Yes Hearing / Vision: concerns? No (wears glasses) //////////////////////////////////////////////////////////////////////////////// /////////////////// Note: PHX: Psoriasis (previoulsy seen by Derm), Migraines Medications: 2 creams for psoriasis (unsure of names), previously on elavil for migraine prophylaxis, hasn't taken in last several weeks, and no issues. Parental/Patient Concerns: Heartburn-gets about 2x/wk for last couple of months. Worse in evening and has woken from sleep with hearburn. ROS Stomachaches, Headaches: No Constipation/Diarrhea: No Girls: Menses Yes: regular Social History: School: [employer], Grade 9th. Doing well in school: Yes Just moved with mom, dad, brother from [place] Physical Exam: Wt Readings from Last 3 Encounters: 04/10/2010 110 lb 6.4 oz (50.077 kg) (48.44%) Ht Readings from Last 3 Encounters: 04/10/2010 4' 11.5 (1.511 m) (6.33%) Normalized head circumference data available only for age 0 to 36 months. 48.44% of growth percentile based on znkdvk-wph-qwn. 6.33% of growth percentile based on zvpnaug-nbq-ggg. BP 102/65 Pulse 77 Wt 110 lb 6.4 oz (50.077 kg) GENERAL: Alert, NAD EYES: PERRLA, EOMI, red [...] Straight SKIN: no rashes or lesions Impression: 1.Well child with normal growth and development. 2. COLLIN 3. Psoriasis Plan: Anticipatory guidance discussed included calcium, safety, dentist, exercise. Vaccines: flu, HPV 2. Advised OTC zantac or pepcid 3. Mom to get phone numbers for Derm in area. Follow up in 1 year. UNTANT CERTIFIED PUBLIC documented in this encounter Plan of Treatment Not on file documented as of this encounter Visit Diagnoses Diagnosis Well child check- Primary Routine or child health check GERD without esophagitis Esophageal reflux Psoriasis Other psoriasis Need for prophylactic vaccination and inoculation against other viral diseases(V04.89) Need for prophylactic vaccination and inoculation against other viral diseases Need for prophylactic vaccination and inoculation against influenza documented in this encounter
--- OUTSIDE RECORDS SUMMARY | 2024-04-25 11:12 | XMS_ITS | Encounter Summary ---
Author Organization [facility] Address [address] [place] [address] Care Team Providers Care Waiter/Waitress Take Out Name Role Phone Unavailable Primary Care Provider Unavailabl e Encounter Details Date Type Department Care Team (Late st Contact Info) Description 09/18/2010 Orders Only [facility] - Pediatrics [address] [place] [phone] Angie Sung MD [address] [place] [phone] Social History Tobacco Use Types Packs/Day Years Used Date Smoking Tobacco: Never Assessed Sex and Gender Information Value Date Recorded Sex Assigned at Not on file Gender Identity Not on file Sexual Orientation Not on file documented as of this encounter Progress Notes * Florinda Vasquez RN - 09/22/2010 4:56 PM CDTQuick Note: Phone call placed to patient's home to report negative throat culture results. No answer. Message left reporting the result and to notify office for any further questions or concerns. * Florinda Vasquez RN - 09/22/2010 10:58 AM CDTQuick Note: Phone call place to parent to inquire regarding overdue lab. No answer. Message left for parent to call office. * Angie Sung MD - 09/22/2010 10:19 AM CDTQuick Note: Let family know that throat cx is negative documented in this encounter Plan of Treatment Not on file documented as of this encounter Procedures Procedure Name Priority Date/Time Associated Diagnosis Comments CULTURE THROAT 09/18/2010 2:34 PM CDT documented in this encounter Results * CULTURE THROAT (09/18/2010 2:34 PM CDT) Upper Respiratory Culture Final report [facility] ACCOUNT BILL Result 1 RRF [facility] ACCOUNT BILL Comment:Routine respiratory cuca ENTIRE PHARYNX / Unknown 09/18/2010 2:34 PM CDT 09/18/2010 11:04 PM CDT Narrative Resulting Agency Comment [facility] [address] ??[facility] [phone] Angie Sung MD LAB - MICROBIOLOGY O RDERABLES [facility] ACCOUNT BILL documented in this encounter Visit Diagnoses Not on filedocumented in this encounter
--- OUTSIDE RECORDS SUMMARY | 2024-04-25 11:12 | XMS_ITS | Encounter Summary ---
Author Organization [facility] Address [address] [place] [address] Care Team Providers Care Test Bore Helper Name Role Phone Unavailable Primary Care Provider Unavailabl e Reason for Visit * Reason Comments Imm Inj Encounter Details Date Type Department Care Team (Latest Contact Info) Description 10/13/2010 4:00 PM CDT Clinical Support [facility] Medical Group - Pediatrics [address] [place] [phone] Need vaccination-viral disease Social History Tobacco Use Types Packs/Day Years Used Date Smoking Tobacco: Never Assessed Sex and Gender Information Value Date Recorded Sex Assigned at Not on file Gender Identity Not on file Sexual Orientation Not on file documented as of this encounter Last Filed Vital Signs Vital Sign Reading Time Taken Comments Blood Pressure - - Pulse - - Temperature 37.6 ??C (99.6 ??F) 10/13/2010 5:12 PM CD T Respiratory Rate - - Oxygen Saturation - - Inhaled Oxygen Concentration - - Weight - - Height - - Body Mass Index - - documented in this encounter Plan of Treatment Not on file documented as of this encounter Visit Diagnoses Diagnosis Need for prophylactic vaccination and inoculation against other viral diseases(V04.89)- Primary Need for prophylactic vaccination and inoculation against other viral diseases documented in this encounter
--- OUTSIDE RECORDS SUMMARY | 2024-04-25 11:12 | XMS_ITS | Encounter Summary ---
Author Organization [facility] Address [address] [place] [address] Care Team Providers Care Bumboater Name Role Phone Unavailable Primary Care Provider Unavailabl e Reason for Visit * Reason Comments Thyroid Problem requesting check for thyroid disease; mother's side of family all have history of thyroid problems and mother had thyroidectomy for thyroid CA; Fatigue past few months Headache has headaaches almos t every other day which makes her nauseous and sometimes light bothers her eyes; she has to lie down; has migraines and took preventative medicine in past and would like to try medication again Encounter Details Date Type Department Care Team (Late st Contact Info) Description 05/31/2011 3:30 PM ARTISTS' BOOKING REPRESENTATIVE Office Visit [facility] - Pediatrics [address] [place] [address] [place] [phone] Angie Sung MD [address] [place] [phone] Fatigue (Primary Dx); Migraine Social History Tobacco Use Types Packs/Day Years Used Date Smoking Tobacco: Never Assessed Sex and Gender Information Value Date Recorded Sex Assigned at Not on file Gender Identity Not on file Sexual Orientation Not on file documented as of this encounter Last Filed Vital Signs Vital Sign Reading Time Taken Comments Blood Pressure 116/56 05/31/2011 3:50 PM ARTISTS' BOOKING REPRESENTATIVE Pulse 88 05/31/2011 3:50 PM ARTISTS' BOOKING REPRESENTATIVE Temperature 37.3 ??C (99.2 ??F) 05/31/2011 3:50 PM CS T Respiratory Rate - - Oxygen Saturation - - Inhaled Oxygen Concentration - - Weight 51.7 kg (114 lb) 05/31/2011 3:50 PM ARTISTS' BOOKING REPRESENTATIVE Height - - Body Mass Index - - documented in this encounter Progress Notes * Jordyn Wang RN - 06/02/2011 9:04 AM CSTJoey Note: Spoke with mom regarding normal thyroid results. STS' BOOKING REPRESENTATIVE * Angie Sung MD - 06/01/2011 4:50 PM CSTJoey Note: Let parents know that thyroid studies are normal. STS' BOOKING REPRESENTATIVE * Angie Sung MD - 05/31/2011 4:25 PM CST Brandy is here with her dad today for concern of fatigue for the past 2-3 months. Parents are especially concerned about his because of strong family hx of thyroid disease. She goes to bed between 930-10pm and gets up at 545am. She has also started taking naps as much asI can She has noticed excessive sweating to arm pits and hands in the past couple of months as well. No hair changes, appetite changes, weight changes, skin changes. She also is c/o migraines which she has a hx of. She gets them 3-4 times per week. They are associated with nausea and sometimes light sensativity. Usually just wants to lay down. Has used elavil in the past and would like to try that again. Currently uses tylenol or ibuprofen about once per week. Phx: psoriasis (used a cream in the past, clear right now). Fhx: brother is hypothyroid, mom had thyroid CA 2004, maternal GMa and aunts with thyroid disease as well. PE: Gen-well appearing HEENT: TM's pearly. Throat clear. Neck: supple, enlarged thyroid not appreciated. Resp: CTA CV:nL Abd: soft, nontender Impression: 1. Fatigue, concern for thyroid disease 2. Migraines Plan: 1. Check thyroid studies 2. Will reorder elevil STS' BOOKING REPRESENTATIVE documented in this encounter Plan of Treatment Not on file documented as of this encounter Procedures Procedure Name Priority Date/Time Associated Diagnosis Comments TSH Routine 05/31/2011 4:27 PM ARTISTS' BOOKING REPRESENTATIVE Fatigue T4 FREE Routine 05/31/2011 4:27 PM ARTISTS' BOOKING REPRESENTATIVE Fatigue documented in this encounter Results * T4 FREE (05/31/2011 4:27 PM ARTISTS' BOOKING REPRESENTATIVE) T4 Free 1.20 0.93 - 1.60 ng/dL [facility] ACCOUNT BILL Blood specimen (specimen) BLOOD SPECIMEN / Unknown 05/31/2011 4:27 PM ARTISTS' BOOKING REPRESENTATIVE 05/31/2011 9:06 PM ARTISTS' BOOKING REPRESENTATIVE Narrative Resulting Agency Comment [facility] [place] [address] ??[facility] [phone] Angie Sung MD LAB - CHEMISTRY LIZZY LEPE [facility] ACCOUNT BILL * TSH (05/31/2011 4:27 PM ARTISTS' BOOKING REPRESENTATIVE) TSH 1.900 0.450 - 4.500 uIU/mL [facility] ACCOUNT BILL Blood specimen (specimen) BLOOD SPECIMEN / Unknown 05/31/2011 4:27 PM ARTISTS' BOOKING REPRESENTATIVE 05/31/2011 9:06 PM ARTISTS' BOOKING REPRESENTATIVE Narrative Resulting Agency Comment [facility] [address] ??[facility] [phone] Angie Sung MD LAB - CHEMISTRY LIZZY LEPE [facility] ACCOUNT BILL documented in this encounter Visit Diagnoses Diagnosis Fatigue- Primary Other malaise and fatigue Migraine Migraine, unspecified, without mention of intractable migraine without mention of status migrainosus documented in this encounter
--- OUTSIDE RECORDS SUMMARY | 2024-04-25 11:12 | XMS_ITS | Encounter Summary ---
Author Organization [facility] Address [address] [place] [address] Care Team Providers Care Human Relations Teacher Name Role Phone Unavailable Primary Care Provider Unavailabl e Reason for Visit * Reason Comments Sore Throat x1 day Runny Nose with clear exudate x 1 days Headache x1 day Fever slight fever today Encounter Details Date Type Department Care Team (Late st Contact Info) Description 09/18/2010 2:15 PM CDT Office Visit [facility] - Pediatrics [address] [place] [phone] Angie Sung MD [address] [place] [phone] Sore throat (Primary Dx) Social History Tobacco Use Types Packs/Day Years Used Date Smoking Tobacco: Never Assessed Sex and Gender Information Value Date Recorded Sex Assigned at Not on file Gender Identity Not on file Sexual Orientation Not on file documented as of this encounter Last Filed Vital Signs Vital Sign Reading Time Taken Comments Blood Pressure - - Pulse - - Temperature 36.8 ??C (98.3 ??F) 09/18/2010 2 :14 PM CDT Respiratory Rate - - Oxygen Saturation - - Inhaled Oxygen Concentration - - Weight 50.7 kg (111 lb 12.8 oz) 011 2:14 PM CDT with shoes Height - - Body Mass Index - - documented in this encounter Progress Notes * Angie Sung MD - 09/18/2010 2:56 PM CDT Brandy Gallardo. 14 y.o., female, here for evaluation of sore throat. Symptoms started 1 days ago. Fever: Yes, Tmax 100 Runny Nose: Yes, clear Congestion: No Cough: No, Headache: Yes Abd Pain: No Rash: No Sleep: good Appetite: good Fluids: good Sick contacts with Strep: No Medications: none PE: Temp(Src) 98.3 ??F (Temporal Artery) Wt 111 lb 12.8 oz (50.712 kg) Alert NAD SHEENT: Skin: no observable rash Throat:injected Tonsils: normal Neck: supple, +ANT LAD, nontender Heart: normal S1, S2, no murmurs or gallops. Lungs: Clear to auscultation and Normal breath sounds bilaterally Rapid Strep: negative Impression: Viral Pharyngitis Plan: Throat culture sent Fever control and encourage fluids. Follow up prn. * Florinda Vasquez RN - 09/18/2010 2:15 PM CDT Brandy Gallardo is a 14 y.o. female accompanied to office today by Mom for evaluation of sore throat, headache, runny nose with clear exudate, slight fever x1 day. Fever babbitt spinner given about 2 hours ago. documented in this encounter Plan of Treatment Scheduled Orders Name Type Priority Associated Diagnoses Orde r Schedule CULTURE ROUTINE Microbiology Routine Sore throat Ordered: 09/18/2010 documented as of this encounter Procedures Procedure Name Priority Date/Time Associated Diagnosis Comments STREP A SCREEN - POINT OF CARE (AMB) Routine 09/18/2010 2:15 PM CDT Sore throat documented in this encounter Results * STREP A SCREEN - POINT OF CARE (AMB) (09/18/2010 2:15 PM CDT) Strep A Rapid POCT NEG NEGATIVE - POSITIVE Strep A Internal Control NEGATIVE - POSITIVE ENTIRE THROAT (SURFACE REGION OF NECK) / Unknown 09/18/2010 2:15 PM CDT Angie Sung MD LAB - POINT OF CARE ORDERABLES documented in this encounter Visit Diagnoses Diagnosis Sore throat- Primary Acute pharyngitis documented in this encounter
--- OUTSIDE RECORDS SUMMARY | 2024-04-25 11:12 | XMS_ITS | Encounter Summary ---
Author Organization [facility] Address [address] [place] [address] Care Team Providers Care Assistant Prosecuting Attorney Name Role Phone Unavailable Primary Care Provider Unavailabl e Reason for Visit * Reason Onset Date Comments Question 09/29/2011 Encounter Details Date Type Department Care Team (Late st Contact Info) Description 09/29/2011 Telephone [facility] - [facility] [address] [place] [phone] Angie Sung MD [address] [place] [phone] Question Social History Tobacco Use Types Packs/Day Years Used Date Smoking Tobacco: Never Assessed Sex and Gender Information Value Date Recorded Sex Assigned at Not on file Gender Identity Not on file Sexual Orientation Not on file documented as of this encounter Miscellaneous Notes * Telephone Encounter - Chari Phipps MA - 09/29/2011 10:47 AM CDT Left voice mail on phone for mother that doctor will call in medication. * Telephone Encounter - Angie Sung MD - 09/29/2011 10:30 AM CDT Will order abx to pharmacy. * Telephone Encounter - Chari Phipps MA - 09/29/2011 9:49 AM CDT Mom called to inform doctor that she, the mother, has tested positive for whooping cough. Should there be treatment for pt? documented in this encounter Plan of Treatment Not on file documented as of this encounter Visit Diagnoses Not on filedocumented in this encounter
--- OUTSIDE RECORDS SUMMARY | 2024-04-25 11:12 | XMS_ITS | Encounter Summary ---
Author Organization [facility] Address [address] [place] [address] Care Team Providers Care Enroller Name Role Phone Unavailable Primary Care Provider Unavailabl e Reason for Visit * Reason Comments Sore Throat x3 days Encounter Details Date Type Department Care Team (Late st Contact Info) Description 04/04/2012 3:45 PM CIRCUIT BOARD REPAIR TECHNICIAN Office Visit [facility] - Pediatrics [address] [place] [phone] Shreya Field MD [address] [place] [phone] Acute pharyngitis (Primary Dx) Social History Tobacco Use Types [...] - - Temperature 37.1 ??C (98.8 ??F) 04/04/2012 3:57 PM CS T Respiratory Rate - - Oxygen Saturation - - Inhaled Oxygen Concentration - - Weight 51.7 kg (114 lb) 04/04/2012 3:57 PM CIRCUIT BOARD REPAIR TECHNICIAN Height - - Body Mass Index - - documented in this encounter Patient Instructions * Patient Instructions* Shreya Field MD - 04/04/2012 4:20 PM CIRCUIT BOARD REPAIR TECHNICIAN Brandy Gallardo most likely has viral sore throat, she tested negative for strep test here in the office, we have send off a throat culture which will be back in 2 days. We will call you with the results. In the mean while, if your child is older than 4 years, give her lozenges, and have her do salt andwater gargles for pain relief. For younger children cold liquids and ice cream numbs the pain and helps them stay hydrated. Use tyelenol per dose chart for pain and fever as needed every four hours. Many prescription and over the counter medicines contain Tylenol (acetaminophen) and Advil( ibuprofen) Do not use/give more than one Tylenol or Advil containing product at a time. UIT BOARD REPAIR TECHNICIAN documented in this encounter Progress Notes * Florinda Vasquez RN - 04/07/2012 10:01 AM CSTQuick Note: Father informed. UIT BOARD REPAIR TECHNICIAN * Shreya Field MD - 04/07/2012 9:18 AM CSTQuick Note: Please call the parent and let him/her know the results are normal. UIT BOARD REPAIR TECHNICIAN * Shreya Field MD - 04/04/2012 3:58 PM CST SUBJECTIVE: Brandy Gallardo is a 16 y.o.brought by father who complains of sore throat for 3 day(s). Fever: Yes, assumed fever today. Last dose of ibuprofen given at 1000. Headache:Yes Stomach ache:No URI symptoms: Yes, sneezing, stuffy nose, cough today. Face and nose stack when sneezing. Body aches and chills today OBJECTIVE: Temp(Src) 98.8 ??F (Temporal Artery) Wt 114 lb (51.71 kg) General appearance: alert, well appearing, and in no distress. Ears: bilateral TM's and external ear canals normal Nose: normal and patent, no erythema, discharge or polyps Oropharynx: erythematous and mucous membranes moist, pharynx normal without lesions Neck: supple, no significant adenopathy Lungs: clear to auscultation, no wheezes, rales or rhonchi, symmetric air entry Heart - regular rate and rhythm, normal S1 and S2, no murmurs ASSESSMENT: Pharyngitis possible Strep throat PLAN: See orders for this visit as documented in the electronic medical record Strep culture sent Symptomatic treatment discussed. UIT BOARD REPAIR TECHNICIAN documented in this encounter Plan of Treatment Not on file documented as of this encounter Procedures Procedure Name Priority Date/Time Associated Diagnosis Comments CULTURE STREP GROUP A Routine 04/04/2012 4:26 PM CIRCUIT BOARD REPAIR TECHNICIAN Acute pharyngitis STREP A SCREEN - POINT OF CARE (AMB) Routine 04/04/2012 4:21 PM CIRCUIT BOARD REPAIR TECHNICIAN Acute pharyngitis documented in this encounter Results * CULTURE STREP GROUP A (04/04/2012 4:26 PM CIRCUIT BOARD REPAIR TECHNICIAN) Beta-Strep Culture, Group A Only Negative [facility] ACCOUNT BILL Miscellaneous samples (specimen) ENTIRE THROAT (SURFACE REGION OF NECK) / Unknown 04/04/2012 4:26 PM CIRCUIT BOARD REPAIR TECHNICIAN 04/04/2012 9:27 PM CIRCUIT BOARD REPAIR TECHNICIAN Narrative Resulting Agency Comment [facility] [place] [id number] [facility] [id number] Shreya Field MD LAB - MICROBIOLOGY O RDERABLES [facility] ACCOUNT BILL * STREP A SCREEN - POINT OF CARE (AMB) (04/04/2012 4:21 PM CIRCUIT BOARD REPAIR TECHNICIAN) Strep A Rapid POCT Negative Negative Strep A Internal Control NEGATIVE - POSITIVE Throat swab (specimen) ENTIRE THROAT (SURFACE REGION OF NECK) / Unknown Shreya Field MD LAB - POINT OF CARE ORDERABLES documented in this encounter Visit Diagnoses Diagnosis Acute pharyngitis- Primary documented in this encounter
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
--- OUTSIDE RECORDS SUMMARY | 2024-04-25 11:13 | XMS_ITS | Encounter Summary ---
Author Organization [facility] Address On license of [facility] 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 Name Role Phone None, Provider MD Primary Care Provider Unavaila ble Reason for Visit * Reason Comments Flank Pain right * Auth/Cert Specialty Diagnoses / Procedures Referred By Contac t Referred To Contact Diagnoses Pyelonephritis Pyelonephritis Referral ID Status Reason Start Date Expiration Date Visits Re quested Visits Authorized [id number] 1 1 Encounter Details Date Type Department Care Team (Latest Contact Info) Description 11/13/2020 8:57 PM CDT - 11/15/2020 11:00 AM T Hospital Encounter [facility] Med/Surg [address] [place] [address] Senthil Vargas MD,PHD [address] [place] [address] [phone] Inés Jaffe MD [address] [place] [address] [phone] (Work) Joanne Aguilar APRN [facility] [place] [address] Flank Pain (right) Discharge Disposition: Home or Self Care (Routine Discharge) Social History Tobacco Use Types Packs/Day Years Used Date Smoking Tobacco: Never Smokeless Tobacco: Never Alcohol Use Standard Drinks/Week Comments Never 0 (1 standard drink = 0.6 oz pur e alcohol) AUDIT-C Answer Date Recorded Q1: How often do you have a drink containing alc ohol? Never 11/13/2020 Average Number of Drinks Not on file 021 Frequency of Binge Drinking Not on file 10/27 Comments No Sex and Gender Information Value Date Recorded Sex Assigned at Not on file Legal Sex Female 8:10 PM CDT Gender Identity Not on file Sexual Orientation Not on file COVID-19 Exposure Response Date Recorded In the last month, have you been in contact with someone who was confirmed or suspected to have Coronavirus / COVID-19? No / Unsure 11/14/2020 12:32 AM CDT documented as of this encounter Last Filed Vital Signs Vital Sign Reading Time Taken Comments Blood Pressure 105/69 11/15/2020 7:55 AM CDT Pulse 94 11/15/2020 7:55 AM CDT Temperature 36.3 ??C (97.3 ??F) 11/15/2020 7:55 AM CD T Respiratory Rate 16 11/15/2020 7:55 AM CDT Oxygen Saturation 97% 11/15/2020 7:55 AM CDT Inhaled Oxygen Concentration - - Weight 62.2 kg (137 lb 2 oz) 11/14/2020 11:49 PM CDT Height 152.4 cm (5') 11/14/2020 12:28 AM CDT Body Mass Index 26.78 11/14/2020 12:28 AM CDT documented in this encounter Functional Status * Question Answer Date of Assessment Author Status Do you have serious difficulty walking or climbing stairs? No 11/14/2020 12:39 AM CDT Teresa Ferreira RN Act jorje * Question Answer Date of Assessment Author Status Do you have difficulty dressing or bathing? No 11/14/2020 12:39 AM CDT Teresa Ferreira RN Active Because of a physical, mental, or emotional condition, do you have difficulty doing errands alone such as visiting a doctor's office or shopping? No 11/14/2020 12:39 AM CDT Teresa Ferreira RN Acti ve * RETIRED Are you deaf or do you have serious difficulty hearing Answer Date of Assessment Author Status No 11/14/2020 12:39 AM CDT Acti ve * RETIRED Are you blind or do you have serious difficulty seeing, even when wearing glasses? Answer Date of Assessment Author Status No 11/14/2020 12:39 AM CDT Acti ve * Do you have serious difficulty walking or climbing stairs? Answer Date of Assessment Author Status No 11/14/2020 12:39 AM CDT Teresa Ferreira RN Active * Do you have difficulty dressing or bathing? Answer Date of Assessment Author Status No 11/14/2020 12:39 AM Teresa Apodaca RN Active * Because of a physical, mental, or emotional condition, do you have difficulty doing errands alone such as visiting a doctor's office or shopping? Answer Date of Assessment Author Status No 11/14/2020 12:39 AM Teresa Apodaca RN Active documented as of this encounter Mental Status * Question Answer Entry Date Author Status Because of a physical, mental, or emotional condition, do you have serious difficulty concentrating, remembering, or making decisions? No 11/14/2020 12:39 AM Teresa Apodaca RN Active * Because of a physical, mental, or emotional condition, do you have serious difficulty concentrating, remembering, or making decisions? Answer Entry Date Author Status No 11/14/2020 12:39 AM Teresa Apodaca RN Active documented in this encounter Discharge Summaries * Joanne Aguilar APRN - 11/15/2020 9:15 AM CDT Hospitalist Discharge Summary Patient ID: Nichole Stout. female. 1995. Admit date: 11/13/2020 8:57 PM Discharge date and time: 11/15/20 Admitting Provider: Inés Bruno MD Attending Provider: Joanne Aguilar APRN Primary Care Provider: Laquita Ivan MD Discharge Provider: Joanne Aguilar NP Hospital Diagnosis: Principal Problem: Pyelonephritis SNOMED CT(R): PYELONEPHRITIS Admission Condition: poor Discharged Condition: Good Code Status: Full Code Indication for Admission: Chief Complaint Patient presents with ??? Flank Pain right Readmission/Mortality Score at discharge: Low 0-28, Medium 29-58, High >59 LACE+ Score Readmission Score: 43 Male Patient: Urgent Admission: 15 Discharge Institution: Length of Stay: 3 Alternative Level of Care Status: 0 ED Visits in Previous 6 Months: 0 Elective Admission in Previous Year: 0 Comorbidity Score (by age & number of urgent admissions): 25 Hospital Course: Per H&P, Nichole Stout is a 24-year-old female with past medical history significant for Celiac disease that presented to the ER last night with dysuria. Her symptoms started yesterday afternoon. She noted burning when urinating. She tried taking Azo and also found a leftover Macrobid from a previous UTI, which she took. Shortly after she says she felt like she was hit by a truck. She endorses a migraine headache and poor appetite. She felt very nauseous and later vomited one time in the ER last night. This morning she continues with poor appetite. She no longer has flankpain, but endorses generalized body aches. Her headache is resolved and her dysuria is better. In the ER she received compazine for nausea and her SO tells me her heart increased. Briefly, Ms. Stout was admitted with sepsis and UTI. She improved with antibiotics and IV fluids.Sepsis and dysuria resolved. Now medically stable for discharge. Urine culture resulted only for polymicrobial growth consistent with normal genitourinary ryann, but as she was symptomatic and septicshe will continue on oral antibiotics at discharge for 7 more days. Now medically stable for discharge. See below for details on course of hospitalization. Sepsis-resolved Present on admission with tachycardia and leukocytosis. No evidence of end-organ injury. No signs of shock. Source UTI Treatment as below Blood cultures NGTD Lactate WNL Received 1L fluid bolus in ER. Will continue IVF, increased rate this AM on 11/14 for tachycardia. Had one blood pressure with MAP of 63 on 11/14 @ 1123. Will repeat lactate--0.6 UTI UA cloudy with trace LE, positive nitrites, WBC, bacteria. Continue to follow culture and sensitivity. Treat with IV Rocephin. Urine culture: POLYMICROBIAL GROWTH CONSISTENT WITH NORMAL GENITAL RYANN. ?? SUSCEPTIBILITIES NOT ROUTINELY PERFORMED. As she was symptomatic and septic, will continue with Omnicef for 7 more days. Patient did list Keflex as an adverse reaction of vomiting, but tolerated Rocephin. ?? Possible adverse drug reaction Per patient HR increased after IV compazine. It appears her HR was 105 prior to compazine, then 120s after receiving. However, tachycardia likely 2/2 sepsis Continue tele and IVF Tachycardia resolved. ?? Hypokalemia-resolved 2/2 GI loss Replaced and continue carrier in IVF ?? Celiac disease Continue gluten free diet Significant Diagnostic Studies: Recent Labs Lab 11/13/20212611/14/2060911/15/20 0555 WBC 12.1* 10.2 7.8 RBC 4.10* 3.78* 3.66* HGB 12.3 11.4* 11.1* HCT 36.9 34.4* 33.9* MCV 90.0 91.0 92.6 MCH 30.0 30.2 30.3 MCHC 33.3 33.1 32.7 PLT 263 243 226 RDW 12.4 12.6 12.6 MPV 10.8 10.6 10.6 PERNEU 71.8 78.3* 63.1 PERLYM 18.2 14.3* 26.2 PERMON 8.1 5.9 7.8 LYMC 2.21 1.46 2.04 Recent Labs Lab 11/13/20212611/14/20 0610 11/15/20 0555 NA 142 143 143 K 2.9* 3.6 4.3 CL 106 109* 111* CO2 23.4 20.5* 23.5 AGAP 12.6 13.5 8.5 BUN 10 6* 3* CR 0.77 0.58 0.59 BUNCREATININ 13.0 10.3 5.1* GFRNON >90 >90 >90 GFR >90 >90 >90 GLU 89 91 92 CA 9.5 8.4* 8.6 TP 7.9 -- -- ALB 4.1 -- -- TBIL 0.6 -- -- ALKP 54 -- -- AST 15 -- -- ALT 21 -- -- Recent Labs Lab 11/13/202126 TSH 1.094 No results for input(s): APTT, INR, PTT in the last 168 hours. Recent Labs Lab 11/13/202126 TROP <0.017 Recent Labs Lab 11/13/20213111/14/20 1443 LACTICACID 0.9 0.6 No results for input(s): PH, PCO2, PO2, Z2DDEWTVFQSF, BICARBWB, BASEDEFICIT, BASEEXCESS in the [id number] hours. Results for orders placed or performed during the hospital encounter of 11/13/20 URINALYSIS, AUTO, COMPLETE Result Value Ref Range COLOR (U) ORANGE TRANSPARENCY CLOUDY Specific Amity (U) 1.010 1.000 - 1.030 U PH 5.0 5.0 - 9.0 LEUKOCYTE ESTERASE TRACE (A) NEGATIVE NITRITES POSITIVE (A) NEGATIVE PROTEIN (U) 1+ (A) NEGATIVE URINE GLUCOSE TRACE (A) NEGATIVE U KETONES 3+ (A) NEGATIVE BILIRUBIN (U) NEGATIVE NEGATIVE BLOOD NEGATIVE NEGATIVE WBC/HPF 5-10 0 - 5 /HPF RBC/HPF 0-5 0 - 5 /HPF EPI/HPF MODERATE /HPF BACTERIA (URINE) FEW /HPF Radiology Reports : See official reports for full details Results for orders placed or performed during the hospital encounter of 11/13/20 ECG 12 lead ?? Narrative ?? 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1995 Requested By: SENTHIL VARGAS Order Number: [id number] Reading MD: Measurements Intervals Ariel Rate: 97 P: 62 MA: 157 QRS: 45 QRSD: 94 T: 37 QT: 339 QTc: 432 Interpretive Statements SINUS RHYTHM No previous ECG available for comparison Discharge Exam: Filed Vitals: 11/14/20 1917 11/14/20 2349 11/15/20 0407 11/15/20 0755 BP: 107/66 102/55 101/53 105/69 Pulse: 97 103 82 94 Resp: 16 16 16 16 Temp: 97.9 ??F (36.6 ??C) 97.3 ??F (36.3 ??C) 96.6 ??F (35.9 ??C) 97.3 ??F (36.3 ??C) TempSrc: Tympanic Tympanic Tympanic Tympanic SpO2: 99% 96% 98% 97% Weight: 62.2 kg (137 lb 2 oz) Height: GEN: In no acute distress. Breathing comfortably on room air. HEENT: Clear conjunctiva. Mucous membranes moist. RESPIRATORY: Effort normal. CTA, no wheezes or crackles. CVS: RRR, no MRG. Abd: Soft, Nontender. Ext: No edema. MUSCULOSKELETAL: FROM SKIN: Warm, dry. No rashes or ulcers. PSYCH: Appropriate affect NEURO: Alert and oriented. No focal deficits Discharge Medications: Medication List START taking these medications cefdinir 300 MG Caps capsule Commonly known as: OMNICEF Take 1 capsule (300 mg total) by mouth 2 (two) times daily for 7 days. Where to Get Your Medications These medications were sent to [id number] - [place], [place] - [address] AT SEC OF [facility] [phone], [facility] [phone] ?? cefdinir 300 MG Caps capsule Disposition: Home with self care Time Spent on Discharge >30 minutes Signed: JOANNE AGUILAR APRN This note was dictated with [employer]igoVision medical dictation software; misspellings, punctuation errors, omitted words or dictation variances may occur. Cosigned by Lorene Cruz MD at 11/15/2020 9:59 PM CDT documented in this encounter Discharge Instructions * Discharge Instructions* Joanne Aguilar APRN - 11/15/2020 9:15 AM CDT Images from the original note were not included. Take your antibiotic with food, this may help with nausea. Patient Education Urinary Tract Infection Discharge Instructions, Adult About this topic A urinary tract infection is a UTI. It is caused by germs getting into the urinary tract. The urinary tract is made up of the kidneys, ureters, bladder, and urethra. The urethra is a tube at the bottom of the bladder. Urine flows out of this tube. The germs enter the urethra and then spread in the bladder. The ureters are small tubes that join the bladder and the kidneys. A bladder infection is when the lower urinary tract is infected. A kidney infection is in the upper urinary tract. A UTI is more common in women. What care is needed at home? ?? Ask your doctor what you need to do when you go home. Make sure you ask questions if you do not understand what the doctor says. This way you will know what you need to do. ?? Take your drugs as ordered by your doctor. ?? Drink at least 8 to 10 glasses of water or water-based drinks each day. Do not include drinks with caffeine, like coffee or tea. ?? Do not hold back your urine. Go to the bathroom every 2 to 3 hours. What follow-up care is needed? Your doctor may ask you to make visits to the office to check on your progress. Be sure to keep these visits. What drugs may be needed? The doctor may order drugs to: ?? Fight an infection ?? Help with pain Be sure to talk to your doctor about all of your drugs if you are . Will physical activity be limited? Physical activities will not be limited. You may have to pass urine more often. What changes to diet are needed? ?? Do not drink beer, wine, and mixed drinks (alcohol) or caffeine. These can bother the bladder. ?? Talk to your doctor about drinking cranberry juice. What can be done to prevent this health problem? ?? Pass urine often. ?? Wear cotton underwear. ?? Women should not wear overly tight underwear or pants. ?? Do not use feminine hygiene sprays or drying soaps. ?? Gently cleanse your genital area each day. Wipe from front to back to keep germs from going in your body. ?? Uncircumcised men should retract their foreskin and gently clean around the head of their penis daily. ?? Gently cleanse your genital area before and after having sex. ?? Empty your bladder after having sex. ?? Empty your bladder before going to sleep. When do I need to call the doctor? ?? Signs of a very bad reaction. These include trouble breathing; wheezing; chest tightness; fever;itching; bad cough; blue skin color; seizures; or swelling of face, lips, tongue, or throat. Go to the ER right away. ?? Signs of infection. These include a fever of 100.4??F (38??C) or higher, chills, pain with passing urine, back pain, nausea, throwing up, or bloody urine. ?? Signs are worse or do not improve within 24 hours of starting treatment ?? Signs come back after treatment ends ?? You are not feeling better in 2 to 3 days or you are feeling worse Teach Back: Helping You Understand The Teach Back Method helps you understand the information we are giving you. The idea is simple. After talking with the staff, tell them in your own words what you were just told. This helps to makesure the staff has covered each thing clearly. It also helps to explain things that may have been abit confusing. Before going home, make sure you are able to do these: ?? I can tell you about my condition. ?? I can tell you how to prevent this problem from coming back. ?? I can tell you what I will do if my signs do not get better after 24 hours of treatment or come back after I have finished treatment. Where can I learn more? National [place] [employer] http://www.nichd.nih.gov/health/topics/urinary/conditioninfo/Pages/uti.aspx National Kidney and Urologic Diseases Information Clearinghouse http://kidney.niddk.nih.gov/kudiseases/pubs/uti_ez/ Last Reviewed Date 2018-06-24 Consumer Information Use and Disclaimer This information is not specific medical advice and does not replace information you receive from your health care provider. This is only a brief summary of general information. It does NOT include all information about conditions, illnesses, injuries, tests, procedures, treatments, therapies, discharge instructions or life-style choices that may apply to you. You must talk with your health care provider for complete information about your health and treatment options. This information should not be used to decide whether or not to accept your health care provider???s advice, instructions or recommendations. Only your health care provider has the knowledge and training to provide advice that is right for you. Copyright Copyright ?? 2020 [employer]. and its affiliates and/or licensors. All rights reserved. documented in this encounter Medications at Time of Discharge cefdinir 300 MG Cap capsule Take 1 capsule (300 mg total) by mouth 2 (two) times daily for 7 days. 20 capsule 11/15/2020 11/22/2020 documented as of this encounter Progress Notes * Cinthia Rollins RN - 11/15/2020 10:22 AM CDT Problem: Discharge Planning Goal: Knowledge of discharge plan Outcome: Adequate for Discharge Problem: Nausea/Vomiting Goal: Absence of nausea/vomiting Outcome: Adequate for Discharge Goal: Electrolytes within specified parameters Outcome: Adequate for Discharge * SCOTT Cr - 11/15/2020 10:21 AM CDT 11/15/20 1021 Discharge Planning Living Arrangements Spouse/Significant other Support Systems Spouse/Significant other Type of Residence Private residence Assistance/Services Needed No IV Infusion at discharge No Patient expects to be discharged to: Home DME Needed at Discharge No Patient to discharge home today. No discharge needs identified. * Christal Vazquez RN - 11/15/2020 3:20 AM CDT Problem: Discharge Planning Goal: Knowledge of discharge plan 11/15/2020 0320 by Christal Vazquez RN Outcome: Progressing 11/15/2020 0319 by Christal Vazquez RN Outcome: Progressing Problem: Nausea/Vomiting Goal: Absence of nausea/vomiting Outcome: Progressing Goal: Electrolytes within specified parameters Outcome: Progressing * Meryl Daniel RN - 11/14/2020 5:10 PM CDT Problem: Discharge Planning Goal: Knowledge of discharge plan Outcome: Progressing * SCOTT Cr - 11/14/2020 12:56 PM CDT Interdisciplinary Team conference held. In attendance; case management, UR, nursing, PT, OT, cardiopulmonary, METALWORKING INSTRUCTOR, Hospitalist, Pastoral Care, and Pharmacy. Meeting held at 11:00. Continue fluids. Urine and blood cultures pending. Possible discharge home tomorrow. * Carolann Zhou RN - 11/14/2020 9:34 AM CDT 11/14/20 0932 Referral Data Referral Reason Discharge Planning Source of Information Patient Patient Information OB Patient < 19 yrs old No Primary Caregiver Self Support System Immediate family Baseline ADL's Functional Status Independent Living Arrangements Spouse/significant other Type of Residence Private residence Ambulation Assistance No Bathing/Grooming Assistance No Dressing Assistance No Behavior Oriented;Cooperative Communication Talks;Understands speaking;Understands Pashto Socioeconomic Needs Caregiver Needed No At Risk of Abuse or Neglect No Adequate Resources Yes Psychological Needs: Mental health concerns No Suspected Drug or Alcohol Abuse No Inappropriate Patient/Family Behaviors No Difficult Adjustment to Diagnosis No Recent Hospitalization Recent Hospitalization within 30 days No Anticipated Discharge Needs Change in Living Arrangements No In-Home Care or Equipment No Vocational and/or Role Loss No Inability to Complete ADL's No Anticipated DC Plan Living Arrangements Spouse/significant other Support Systems Spouse/significant other Type of Residence Private residence Assistance Needed No Patient expects to be discharged to: Home Psychosocial Needs With Indication for Social Work Consult Diagnosis/prognosis resulting in poor adjustment or coping with illness No Diagnosis/prognosis with anticipated outcome of major lifestyle changes, including change in groover runner living environment No Family concerns/conflicts No Inadequate social and/or financial supports No Abuse and/or neglect of elder, adult or child No Psychiatric and/or substance abuse issues affecting current hospitalization No Homelessness with lack of safe discharge environment No Need for guardianship petition No Chaptered patient No [place] Only - Criminal Background check [place] only - Is patient going to intermediate? No Spoke with patient in her room. Answers all questions with intent and clarity. Lives with her boyfriend. Is independent in all ADLS. Walks without a device. Denies need for home health are other services. Plans to return home with her boyfriend at discharge. He will transport her home. * Teresa Ferreira RN - 11/14/2020 2:54 AM CDT Problem: Discharge Planning Goal: Knowledge of discharge plan Outcome: Progressing * Teresa Ferreira RN - 11/14/2020 1:57 AM CDT Pt has Celiac Disease documented in this encounter H&P Notes * Joanne Aguilar APRN - 11/14/2020 8:22 AM CDT Hospitalist History and Physical Patient: Nichole Stout Date: 11/14/2020 female, 24-year-old Admit Date: 11/13/2020 Attending: Joanne Aguilar APRN REASON FOR ADMISSION: Pyelonephritis HISTORY OF PRESENT ILLNESS: Nichole Stout is a 24-year-old female with past medical history significant for Celiac disease that presented to the ER last night with dysuria. Her symptoms started yesterday afternoon. She noted burning when urinating. She tried taking Azo and also found a leftover Macrobid from a previous UTI, which she took. Shortly after she says she felt like she was hit by a truck. She endorses a migraine headache and poor appetite. She felt very nauseous and later vomited one time in the ER last night. This morning she continues with poor appetite. She no longer has flank pain, but endorses generalizedbody aches. Her headache is resolved and her dysuria is better. In the ER she received compazine for nausea and her SO tells me her heart increased. Allergy Allergies Allergen Reactions ??? Keflex [Cephalexin] Vomiting ??? Donatussin [Dkullutujwjmu-Bxwnppjuv-Gk] Hives ??? Drug Ingredient [Prochlorperazine] Other (see comment) Increased Heart Rate ??? Gluten Meal Diarrhea Medication list No medications prior to admission. No current facility-administered medications on file prior to encounter. No current outpatient medications on file prior to encounter. Past Medical History Past Medical History: Diagnosis Date ??? Celiac disease Past Surgical History: Procedure Laterality Date ??? CHOLECYSTECTOMY Social History Social History Socioeconomic History ??? Marital status: Spouse name: Not on file ??? Number of children: Not on file ??? Years of education: Not on file ??? Highest education level: Not on file Occupational History ??? Not on file Tobacco Use ??? Smoking status: Never Smoker ??? Smokeless tobacco: Never Used Substance and Sexual Activity ??? Alcohol use: Never ??? Drug use: Never ??? Sexual activity: Not on file Other Topics Concern ??? Not on file Social History Narrative ??? Not on file Social Determinants of Health Financial Resource Strain: ??? Difficulty of Paying Living Expenses: Food Insecurity: ??? Worried About Running Out of Food in the Last Year: ??? Ran Out of Food in the Last Year: Transportation Needs: ??? Lack of Transportation (Medical): ??? Lack of Transportation (Non-Medical): Physical Activity: ??? Days of Exercise per Week: ??? Minutes of Exercise per Session: Stress: ??? Feeling of Stress : Social Connections: ??? Frequency of Communication with Friends and Family: ??? Frequency of Social Gatherings with Friends and Family: ??? Attends Worship Services: ??? Active Member of Clubs or Organizations: ??? Attends Club or Organization Meetings: ??? Marital Status: Intimate Partner Violence: ??? Fear of Current or Ex-Partner: ??? Emotionally Abused: ??? Physically Abused: ??? Sexually Abused: Family History Family History Problem Relation Name Age of Onset ??? Cancer Mother ??? No Known Problems Father ??? Other (hypothyroidism) Brother ??? Heart Disease Maternal Grandfather REVIEW OF SYSTEMS: A 14 point review of systems was taken and pertinent positive as per HPI PHYSICAL EXAMINATION: Vital 24 Hour Range Most Recent Value Temperature Temp Min: 97.2 ??F (36.2 ??C) Max: 99 ??F (37.2 ??C) 98.6 ??F (37 ??C) Pulse Pulse Min: 95 Max: 126 119 Respiratory Resp Min: 12 Max: 18 18 Blood Pressure BP Min: 101/55 Max: 114/60 113/49 Pulse Oximetry SpO2 Min: 97 % Max: 99 % 99 % O2 No data recorded Vital Most Recent Value First Value Weight 57.5 kg (126 lb 12.2 oz) Weight: 59 kg (130 lb) Height 5' (152.4 cm) Height: 5' (152.4 cm) BMI 24.8 N/A Physical Exam: GEN: In no acute distress. Breathing comfortably on room air. HEENT: Clear conjunctiva. Mucous membranes moist. RESPIRATORY: Effort normal. CTA, no wheezes or crackles. CVS: Tachycardia, no MRG. Abd: Soft, Nontender. Ext: No edema. MUSCULOSKELETAL: FROM. No CVA tenderness SKIN: Warm, dry. No rashes or ulcers. PSYCH: Appropriate affect NEURO: Alert and oriented. No focal deficits Intake/Output last 3 shifts: I/O last 3 completed shifts: In: 240 [P.O.:240] Out: - Labs: Recent Labs Lab 11/13/20212611/14/20 0610 NA 142 143 K 2.9* 3.6 CL 106 109* CO2 23.4 20.5* AGAP 12.6 13.5 BUN 10 6* CR 0.77 0.58 BUNCREATININ 13.0 10.3 GFRNON >90 >90 GFR >90 >90 GLU 89 91 CA 9.5 8.4* MAGNESIUM 1.8 1.8 PHOS 3.2 -- Recent Labs Lab 11/13/20212611/14/20 0610 WBC 12.1* 10.2 RBC 4.10* 3.78* HGB 12.3 11.4* HCT 36.9 34.4* MCV 90.0 91.0 MCH 30.0 30.2 MCHC 33.3 33.1 PLT 263 243 RDW 12.4 12.6 MPV 10.8 10.6 Recent Labs Lab 11/13/202126 AST 15 ALT 21 No results for input(s): INR, PTT in the last 168 hours. Invalid input(s): ABG arterial blood gases Recent Labs Lab 11/13/202126 TROP <0.017 No results for input(s): PH, PCO2, PO2, [id number], BICARBWB, BASEDEFICIT, BASEEXCESS in the [id number] hours. Imaging & Other Studies See official reports for full details No results found. Results for orders placed or performed during the hospital encounter of 11/13/20 ECG 12 lead Narrative [facility] Test Date: 2020-11-13 Pat Name: NICHOLE STOUT Department: Room: EXAM 505 Gender: Female Mathematics Academic Chair: : 1995 Requested By: SENTHIL VARGAS Order Number: [id number] Reading MD: Measurements Intervals Ariel Rate: 97 P: 62 MA: 157 QRS: 45 QRSD: 94 T: 37 QT: 339 QTc: 432 Interpretive Statements SINUS RHYTHM No previous ECG available for comparison Assessment & Plan Sepsis Present on admission with tachycardia and leukocytosis. No evidence of end-organ injury. No signs of shock. Source UTI Treatment as below Blood cultures NGTD Urine culture pending Lactate WNL Received 1L fluid bolus. Will continue IVF, increased rate this AM on 11/14 for tachycardia. Had one blood pressure with MAP of 63 on 11/14 @ 1123. Will repeat lactate UTI UA cloudy with trace LE, positive nitrites, WBC, bacteria. Continue to follow culture and sensitivity. Treat with IV Rocephin. Possible adverse drug reaction Per patient HR increased after IV compazine. It appears her HR was 105 prior to compazine, then 120s after receiving. However, tachycardia likely 2/2 sepsis Continue tele and IVF Hypokalemia 2/2 GI loss Replaced and continue carrier in IVF Celiac disease Continue gluten free diet - DVT prophylaxis: Lovenox - Code status: Full I certify that inpatient services for greater than 2 midnights are medically necessary for this patient. This note was dictated with [employer]igo[employer] medical dictation software; misspellings, punctuation errors, omitted words or dictation variances may occur. JOANNE AGUILAR APRN 11/14/2020 Cosigned by Lorene Cruz MD at 11/14/2020 4:58 PM CDT Associated attestation - Lorene Cruz MD - 11/14/2020 4:58 PM CDT I, LORENE CRUZ MD, performed a History and Physical examination of the patient and discussed the management with the Advanced Practice Provider (TAMMY). I reviewed the TAMMY's note and agree with thefindings and plan of care, except as I have documented. Per HPI presented with onset of chills, weakness, aching, and R flank pain. Thought it was UTI. Lungs: clear Heart: RRR NL S1S2 Abdomen: soft, Back: No CVA Sepsis probable Pyelonephritis documented in this encounter ED Notes * Nahomi Nino RN - 11/13/2020 10:13 PM CDT Patient with increased heart rate after compazine. aware. Benadryl changed to IV. 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 * Senthil Vargas MD,PHD - 11/13/2020 9:30 PM CDT EMERGENCY DEPARTMENT ENCOUNTER Chief Complaint Chief Complaint Patient presents with ??? Flank Pain right History of Present Illness Provider at Bedside Date/Time Event User Comments 11/13/202057 Provider at Bedside Assessing Patient SENTHIL VARGAS 24-year-old female presenting with a complaint primarily of dysuria. The onset was gradual. The duration is 1 day. The course is constant and gradually worsening. Later, she started having chills, headache, and shakiness . She is also vomited multiple times and not want to eat most the day. She has been taking Azo with minimal relief. Medical History ALLERGIES: Allergies Allergen Reactions ??? Keflex [Cephalexin] Vomiting ??? Donatussin [Eisibclhnazqd-Ylylhcxmy-Hr] Hives ??? Drug Ingredient [Prochlorperazine] Other (see comment) Increased Heart Rate ??? Gluten Meal Diarrhea MEDICATIONS: Azo PAST MEDICAL HISTORY: Past Medical History: Diagnosis Date ??? Celiac disease PAST SURGICAL HISTORY: Past Surgical History: Procedure Laterality Date ??? CHOLECYSTECTOMY FAMILY HISTORY: None SOCIAL HISTORY: Social History Tobacco Use ??? Smoking status: Never Smoker ??? Smokeless tobacco: Never Used Substance Use Topics ??? Alcohol use: Never ??? Drug use: Never Review of Systems Constitutional: POSITIVE for chills Respiratory: Negative for cough and shortness of breath. Cardiovascular: Negative for chest pain, Negative for leg swelling Gastrointestinal: See HPI Genitourinary: See HPI Neurological: Negative for paraesthesias, negative for focal weakness, see HPI All other systems reviewed and are negative except as in HPI and as noted above Physical Exam Filed Vitals: 11/14/20 0705 11/14/20 1123 11/14/20 1520 11/14/20 1917 BP: 101/55 113/49 113/65 107/66 Pulse: 126 119 104 97 Resp: 16 18 16 16 Temp: 99 ??F (37.2 ??C) 98.6 ??F (37 ??C) 98.9 ??F (37.2 ??C) 97.9 ??F (36.6 ??C) TempSrc: Tympanic Tympanic Tympanic Tympanic SpO2: 97% 99% 98% 99% Weight: Height: CONSTITUTIONAL: Patient is awake, alert, in no acute distress, conversant HEAD AND FACE: Normocephalic, atraumatic EYES: Normal sclera, extraocular motions grossly normal NECK: Supple, no obvious asymmetry CARDIOVASCULAR: Regular tachycardia RESPIRATORY: No respiratory distress or tachypnea, clear to auscultation bilaterally without rales,rhonchi, wheezes ABDOMEN: Mild suprapubic and bilateral flank tenderness without rebound or guarding NEUROLOGIC: GCS 15, CN2-12 grossly intact, moves all extremities without drift EXTREMITIES: Warm, no edema Diagnostic Studies / Procedures LABORATORY STUDIES: Results for orders placed or performed during the hospital encounter of 11/13/20 URINALYSIS, AUTO, COMPLETE Result Value Ref Range COLOR (U) ORANGE TRANSPARENCY CLOUDY Specific Amity (U) 1.010 1.000 - 1.030 U PH 5.0 5.0 - 9.0 LEUKOCYTE ESTERASE TRACE (A) NEGATIVE NITRITES POSITIVE (A) NEGATIVE PROTEIN (U) 1+ (A) NEGATIVE URINE GLUCOSE TRACE (A) NEGATIVE U KETONES 3+ (A) NEGATIVE BILIRUBIN (U) NEGATIVE NEGATIVE BLOOD NEGATIVE NEGATIVE WBC/HPF 5-10 0 - 5 /HPF RBC/HPF 0-5 0 - 5 /HPF EPI/HPF MODERATE /HPF BACTERIA (URINE) FEW /HPF TEST URINE Result Value Ref Range Specific Amity (U) 1.010 PREG TEST NEGATIVE NEGATIVE CBC W/DIFF AUTOMATED Result Value Ref Range WBC 12.1 (H) 4.4 - 11.0 x10'3/uL RBC 4.10 (L) 4.50 - 5.10 x10'6/uL HGB 12.3 12.3 - 15.3 G/DL HCT 36.9 35.9 - 44.6 % MCV 90.0 80.0 - 96.0 FL MCH 30.0 25.3 - 30.9 PG MCHC 33.3 31.0 - 34.1 G/DL RDW 12.4 12.4 - 15.1 % PLT 263 151 - 353 x10'3/uL MPV 10.8 9.6 - 12.0 FL RBC MORPHOLOGY NORMAL PLT MORPH. NORMAL WBC MORPHOLOGY NORMAL LYMPHOCYTES 18.2 15.8 - 45.0 % NEUTROPHILS 71.8 42.1 - 71.9 % MONOCYTES 8.1 5.7 - 12.5 % EOSINOPHILS 1.2 0.0 - 5.6 % BASOPHILS 0.3 0.0 - 1.3 % ABS. NEUTROPHILS TOTAL 8.70 (H) 1.40 - 6.00 x10'3/uL IMMATURE GRANS 0.4 0.0 - 0.5 % ABS. LYMPHOCYTES 2.21 0.80 - 4.70 x10'3/uL COMPREHENSIVE METABOLIC PANEL Result Value Ref Range GLUCOSE 89 70 - 99 MG/DL BUN 10 7 - 18 MG/DL CREATININE S/P/B 0.77 0.55 - 1.02 MG/DL SODIUM 142 136 - 145 MMOL/L POTASSIUM 2.9 (LL) 3.5 - 5.1 MMOL/L CHLORIDE S/P/B 106 100 - 108 MMOL/L CO2 23.4 21 - 32 MMOL/L CALCIUM 9.5 8.5 - 10.1 MG/DL BILIRUBIN TOTAL S/P/B 0.6 0.2 - 1.2 MG/DL TOTAL PROTEIN S/P/B 7.9 6.4 - 8.2 G/DL ALBUMIN S/P/B 4.1 3.4 - 5.0 G/DL AST 15 15 - 37 U/L ALT 21 14 - 55 U/L ALKALINE PHOSPHATASE S/P/B 54 50 - 136 U/L ANION GAP 12.6 5 - 15 MMOL/L BUN CREATININE RATIO 13.0 6 - 26 A/G RATIO 1.1 1.0 - 2.0 RATIO eGFR Non-Afr. Amer. >90 >90 ML/MIN/1.73 M2 eGFR Afr. Amer. >90 >90 ML/MIN/1.73 M2 MAGNESIUM Result Value Ref Range MAGNESIUM 1.8 1.8 - 2.4 MG/DL PHOSPHORUS, INORGANIC PHOSPHATE Result Value Ref Range PHOSPHORUS 3.2 2.5 - 4.9 MG/DL LIPASE Result Value Ref Range LIPASE 117 73 - 393 UNITS/L TSH W/REFLEX Result Value Ref Range TSH 1.094 0.358 - 3.74 uIU/ML THYROXINE, FREE (FT4) Result Value Ref Range FREE T4 1.02 0.76 - 1.46 NG/DL TROPONIN, QUANT Result Value Ref Range TROPONIN I <0.017 0.000 - 0.056 ng/mL. LACTIC ACID Result Value Ref Range LACTIC ACID 0.9 0.4 - 2.0 MMOL/L ED Course / Medical Decision Making Patient presenting with a chief complaint of dysuria with multiple other associated constitutional symptoms. 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 Therefore sepsis protocol was initiated and labs were drawn including: CBC, CMP, Mag, Phos, Lactate, and blood cultures (before antibiotics). Patient was treated with broad-spectrum antibiotics and IV fluids. A 30cc/kg bolus of IV fluids was not indicated because the patient was not hypotensive and her lactate was greater than 4. After fluids and antibiotics were administered, a sepsis recheck was then performed. The patient's tissue perfusion was clinically improved The initial lactate was 0.9 The patient was treated with IV fluids, antiemetics, IV antibiotics, and pain medicine, but remainssignificantly tachycardic and ill-appearing. I thus requested admission. Clinical Impression Pyelonephritis (Primary) Disposition: Admission to hospitalist for further evaluation and treatment Senthil Vargas MD,PHD 11/14/20 [id number] * Nahomi Nino RN - 11/13/2020 9:02 PM CDT Patient here with complaints of right flank pian, nausea, vomiting, migraine, and dysuria. Dysuria started yesterday and the flank pain started about 30 minutes ago. Patient states she took AZO yesterday when she noted the dysuria. When patient had a second episode of it today she took some macrobide that she had left over and started feeling worse after that. Last UTI was about a year ago. documented in this encounter Plan of Treatment Not on file documented as of this encounter Goals Goal Patient Goal Type Associated Problems Recent Progress Patient-Stated? Author Health - patient able to perform ADLs independently General No Carolann Zhou RN documented as of this encounter Procedures Procedure Name Priority Date/Time Associated Diagnosis Comments BASIC METABOLIC PANEL Routine 11/15/2020 5:55 AM CDT CBC W/DIFF AUTOMATED Routine 11/15/2020 5:55 AM CDT MAGNESIUM Routine 11/15/2020 5:55 AM CDT LACTIC ACID Routine 11/14/2020 2:43 PM CDT BASIC METABOLIC PANEL Routine 11/14/2020 6:10 AM CDT CBC W/DIFF AUTOMATED Routine 11/14/2020 6:10 AM CDT MAGNESIUM Routine 11/14/2020 6:10 AM CDT CULTURE, BACTERIA, BLOOD STAT 11/13/2020 9:51 PM CDT ECG 12-LEAD STAT 11/13/2020 9:43 PM CDT LACTIC ACID STAT 11/13/2020 9:32 PM CDT CULTURE, BACTERIA, BLOOD STAT 11/13/2020 9:31 PM CDT TSH W/REFLEX STAT 11/13/2020 9:27 PM CDT TEST URINE STAT 11/13/2020 9:27 PM CDT URINE BACTERIA CULTURE Routine 9:27 PM CDT URINALYSIS, AUTO, COMPLETE STAT 11/13/2020 9:27 PM CDT COMPREHENSIVE METABOLIC PANEL STAT 11/13/2020 9:27 PM CDT CBC W/DIFF AUTOMATED STAT 11/13/2020 9:27 PM CDT THYROXINE, FREE (FT4) STAT 11/13/2020 9:27 PM CDT TROPONIN, QUANT STAT 11/13/2020 9:27 PM CDT PHOSPHORUS, INORGANIC PHOSPHATE STAT 11/13/2020 9:27 PM CDT MAGNESIUM STAT 11/13/2020 9:27 PM CDT LIPASE STAT 11/13/2020 9:27 PM CDT documented in this encounter Results * MAGNESIUM (11/15/2020 5:55 AM CDT) MAGNESIUM 1.9 1.8 - 2.4 MG/DL 11/15/2020 6:32 AM CDT [facility] 11/15/2020 5:55 AM CDT us Inés Bruno MD LABORATORY Final Result [facility] [address] [place] [address], [place] [phone] * (ABNORMAL) BASIC METABOLIC PANEL (11/15/2020 5:55 AM CDT) GLUCOSE 92 70 - 99 MG/DL 11/15/2020 6:32 AM CDT [facility] BUN 3(L) 7 - 18 MG/DL 11/15/2020 6:32 AM CDT [facility] CREATININE S/P/B 0.59 0.55 - 1.02 MG/DL 11/15/2020 6:32 AM CDT [facility] SODIUM S/P/B 143 136 - 145 MMOL/L 11/15/2020 6:32 AM T [facility] POTASSIUM S/P/B 4.3 3.5 - 5.1 MMOL/L 11/15/2020 6:32 AM CDT [facility] CHLORIDE S/P/B 111(H) 100 - 108 MMOL/L 11/15/2020 6:32 AM CDT [facility] CO2 23.5 21 - 32 MMOL/L 11/15/2020 6:32 AM T [facility] CALCIUM S/P/B 8.6 8.5 - 10.1 MG/DL 11/15/2020 6:32 AM CDT [facility] ANION GAP 8.5 5 - 15 MMOL/L 11/15/2020 6:32 AM T [facility] BUN CREATININE RATIO 5.1(L) 6 - 26 11/15/2020 6:32 AM CDT [facility] EGFR NON-AFR. AMER. >90 >90 ML/MIN/1.7 3 M2 11/15/2020 6:32 AM CDT [facility] EGFR AFR. AMER. >90 >90 ML/MIN/1.7 3 M2 11/15/2020 6:32 AM CDT [facility] Comment: NOTE: eGFR is not calculated for patients <18 years of age. This is an estimated GFR (CKD EPI) and should not be used for calculating drug doses. 11/15/2020 5:55 AM CDT us Inés Bruno MD LABORATORY Final Result [facility] [address] [place] [address], [place] [phone] * (ABNORMAL) CBC W/DIFF AUTOMATED (11/15/2020 5:55 AM CDT) WBC 7.8 4.4 - 11.0 x10'3/uL 11/15/2020 6:23 AM CDT [facility] RBC 3.66(L) 4.50 - 5.10 x10'6/uL 11/15/2020 6:23 AM CDT [facility] HGB 11.1(L) 12.3 - 15.3 G/DL 11/15/2020 6:23 AM CDT [facility] HCT 33.9(L) 35.9 - 44.6 % 11/15/2020 6:23 AM CDT [facility] MCV 92.6 80.0 - 96.0 FL 11/15/2020 6:23 AM CDT [facility] MCH 30.3 25.3 - 30.9 PG 11/15/2020 6:23 AM CDT [facility] MCHC 32.7 31.0 - 34.1 G/DL 11/15/2020 6:23 AM CDT [facility] RDW 12.6 12.4 - 15.1 % 11/15/2020 6:23 AM CDT [facility] PLT 226 151 - 353 x10'3/uL 11/15/2020 6:23 AM CDT [facility] MPV 10.6 9.6 - 12.0 FL 11/15/2020 6:23 AM T [facility] RBC MORPHOLOGY NORMAL 11/15/2020 6:23 AM T [facility] PLT MORPH. NORMAL 11/15/2020 6:23 AM T [facility] WBC MORPHOLOGY NORMAL 11/15/2020 6:23 AM T [facility] LYMPHOCYTES % 26.2 15.8 - 45.0 % 11/15/2020 6:23 AM T [facility] NEUTROPHILS % 63.1 42.1 - 71.9 % 11/15/2020 6:23 AM T [facility] MONOCYTES % 7.8 5.7 - 12.5 % 11/15/2020 6:23 AM T [facility] EOSINOPHILS 2.1 0.0 - 5.6 % 11/15/2020 6:23 AM T [facility] BASOPHILS 0.4 0.0 - 1.3 % 11/15/2020 6:23 AM T [facility] ABS. NEUTROPHILS TOTAL 4.93 1.40 - 6.00 x10'3/uL 11/15/2020 6:23 AM T [facility] IMMATURE GRANS % 0.4 0.0 - 0.5 % 11/15/2020 6:23 AM T [facility] ABS. LYMPHOCYTES 2.04 0.80 - 4.70 x10'3/uL 11/15/2020 6:23 AM CDT [facility] 11/15/2020 5:55 AM CDT Inés Bruno MD LABORATORY Final Result Performing Organization Address [facility]/ZIP Co de Phone Number [facility] [address] [place] [address], * LACTIC ACID (11/14/2020 2:43 PM CDT) LACTIC ACID VENOUS 0.6 0.4 - 2.0 MMOL/L 11/14/2020 3:03 PM CDT [facility] 11/14/2020 2:43 PM CDT Joanne Aguilar APRN LABORATORY Final Result Performing Organization Address [facility]/ZIP Co de Phone Number [facility] [address] [place] [address], [place] [phone] * MAGNESIUM (11/14/2020 6:10 AM CDT) MAGNESIUM 1.8 1.8 - 2.4 MG/DL 11/14/2020 6:37 AM CDT [facility] 11/14/2020 6:10 AM CDT Inés Bruno MD LABORATORY Final Result Performing Organization Address City/[facility]/ZIP Co de Phone Number [facility] [address] [place] [address], * (ABNORMAL) BASIC METABOLIC PANEL (11/14/2020 6:10 AM CDT) GLUCOSE 91 70 - 99 MG/DL 11/14/2020 6:37 AM CDT [facility] BUN 6(L) 7 - 18 MG/DL 11/14/2020 6:37 AM [facility] CREATININE S/P/B 0.58 0.55 - 1.02 MG/DL 11/14/2020 6:37 AM [facility] SODIUM S/P/B 143 136 - 145 MMOL/L 11/14/2020 6:37 AM [facility] POTASSIUM S/P/B 3.6 3.5 - 5.1 MMOL/L 11/14/2020 6:37 AM [facility] CHLORIDE S/P/B 109(H) 100 - 108 MMOL/L 11/14/2020 6:37 AM [facility] CO2 20.5(L) 21 - 32 MMOL/L 11/14/2020 6:37 AM [facility] CALCIUM S/P/B 8.4(L) 8.5 - 10.1 MG/DL 11/14/2020 6:37 AM [facility] ANION GAP 13.5 5 - 15 MMOL/L 11/14/2020 6:37 AM [facility] BUN CREATININE RATIO 10.3 6 - 26 11/14/2020 6:37 AM [facility] EGFR NON-AFR. AMER. >90 >90 ML/MIN/1.7 3 M2 11/14/2020 6:37 AM [facility] EGFR AFR. AMER. >90 >90 ML/MIN/1.7 3 M2 11/14/2020 6:37 AM [facility] Comment: NOTE: eGFR is not calculated for patients <18 years of age. This is an estimated GFR (CKD EPI) and should not be used for calculating drug doses. 11/14/2020 6:10 AM CDT us Inés Bruno MD LABORATORY Final Result [facility] [address] [place] [address], * (ABNORMAL) CBC W/DIFF AUTOMATED (11/14/2020 6:10 AM CDT) WBC 10.2 4.4 - 11.0 x10'3/uL 11/14/2020 6:27 AM CDT [facility] RBC 3.78(L) 4.50 - 5.10 x10'6/uL 11/14/2020 6:27 AM CDT [facility] HGB 11.4(L) 12.3 - 15.3 G/DL 11/14/2020 6:27 AM CDT [facility] HCT 34.4(L) 35.9 - 44.6 % 11/14/2020 6:27 AM CDT [facility] MCV 91.0 80.0 - 96.0 FL 11/14/2020 6:27 AM CDT [facility] MCH 30.2 25.3 - 30.9 PG 11/14/2020 6:27 AM CDT [facility] MCHC 33.1 31.0 - 34.1 G/DL 11/14/2020 6:27 AM CDT [facility] RDW 12.6 12.4 - 15.1 % 11/14/2020 6:27 AM CDT [facility] PLT 243 151 - 353 x10'3/uL 11/14/2020 6:27 AM CDT [facility] MPV 10.6 9.6 - 12.0 FL 11/14/2020 6:27 AM CDT [facility] RBC MORPHOLOGY NORMAL 11/14/2020 6:27 AM CDT [facility] PLT MORPH. NORMAL 11/14/2020 6:27 AM CDT [facility] WBC MORPHOLOGY NORMAL 11/14/2020 6:27 AM CDT [facility] LYMPHOCYTES % 14.3(L) 15.8 - 45.0 % 11/14/2020 6:27 AM CDT [facility] NEUTROPHILS % 78.3(H) 42.1 - 71.9 % 11/14/2020 6:27 AM CDT [facility] MONOCYTES % 5.9 5.7 - 12.5 % 11/14/2020 6:27 AM CDT [facility] EOSINOPHILS 0.7 0.0 - 5.6 % 11/14/2020 6:27 AM CDT [facility] BASOPHILS 0.3 0.0 - 1.3 % 11/14/2020 6:27 AM CDT [facility] ABS. NEUTROPHILS TOTAL 8.03(H) 1.40 - 6.00 x10'3/uL 11/14/2020 6:27 AM CDT [facility] IMMATURE GRANS % 0.5 0.0 - 0.5 % 11/14/2020 6:27 AM CDT [facility] ABS. LYMPHOCYTES 1.46 0.80 - 4.70 x10'3/uL 11/14/2020 6:27 AM CDT [facility] 11/14/2020 6:10 AM CDT us Inés Bruno MD LABORATORY Final Result [facility] [address] [place] [address], * CULTURE, BACTERIA, BLOOD (11/13/2020 9:51 PM CDT) SPEC DESCRIPTION BLOOD 11/13/2020 9:29 PM CDT [facility] SPECIAL REQUESTS NO SPECIAL REQUEST 11/13/2020 9:29 PM CDT [facility] CULTURE RESULT NO GROWTH 5 DAYS 11/18/2020 8:52 AM CDT [facility] BLOOD SPECIMEN OBTAINED FOR BLOOD CULTURE / Unknown 11/13/2020 9:51 PM CDT 11/13/2020 9:52 PM CDT us Senthil Vargas MD,PHD MICROBIOLOGY - GENERAL ORD ERABLES Final Result [facility] [address] [place] [address], [facility] [address] [place] [address], * ECG 12 lead (11/13/2020 9:43 PM CDT) 11/13/2020 9:43 PM CDT Narrative [facility] ([facility]) RAD - 11/14/2020 12:57 PM CDT ?[facility] ? Test Date: ?2020-11-13 Pat Name: ? NICHOLE STOUT ? Department: ? Room: ? 110 Gender: ? Female ? Mathematics Academic Chair: ?? : ?1995 ? Requested By: SENTHIL VARGAS Order Number: [id number] ? Reading : ?? Nik Darling ? Measurements Intervals ?Ariel ? Rate: ? 97 ? P: ?62 MA: ? 157 ?QRS: ?45 QRSD: ? 94 ? T: ?37 QT: ? 339 ? QTc: ?432 ? Interpretive Statements SINUS RHYTHM No previous ECG available for comparison Procedure Note Nik Darling MD - 11/14/2020 [facility] Test Date: 2020-11-13 Pat Name: NICHOLE STOUT Department: Room: 110 Gender: Female Mathematics Academic Chair: : 1995 Requested By: SENTHIL VARGAS Order Number: [id number] Reading MD: Nik Darling Measurements Intervals Ariel Rate: 97 P: 62 MA: 157 QRS: 45 QRSD: 94 T: 37 QT: 339 QTc: 432 Interpretive Statements SINUS RHYTHM No previous ECG available for comparison us Senthil Vargas MD,PHD ECG ORDERABLES Final Resu lt Performing Organization Address City/[facility]/ZIP Co de Phone Number [facility]) RAD * LACTIC ACID (11/13/2020 9:32 PM CDT) LACTIC ACID VENOUS 0.9 0.4 - 2.0 MMOL/L 11/13/2020 9:51 PM CDT [facility] 11/13/2020 9:32 PM CDT us Inés Bruno MD LABORATORY Final Result Performing Organization Address City/[facility]/ZIP Co de Phone Number [facility] [address] [place] [address], [place] [phone] * CULTURE, BACTERIA, BLOOD (11/13/2020 9:31 PM CDT) SPEC DESCRIPTION BLOOD 11/13/2020 9:29 PM CDT [facility] SPECIAL REQUESTS NO SPECIAL REQUEST 11/13/2020 9:29 PM CDT [facility] CULTURE RESULT NO GROWTH 5 DAYS 11/18/2020 8:52 AM CDT [facility] BLOOD SPECIMEN OBTAINED FOR BLOOD CULTURE / Unknown 11/13/2020 9:31 PM CDT 11/13/2020 9:32 PM CDT Senthil Vargas MD,PHD MICROBIOLOGY - GENERAL ORD ERABLES Final Result Performing Organization Address [facility] Co de Phone Number [facility] [address] [place] [address], [place] [phone] [facility] [address] [place] [address], [place] [phone] * CULTURE URINE (11/13/2020 9:27 PM CDT) Pathologist [facility] SPEC DESCRIPTION URINE CLEAN CATCH 11/13/2020 10:55 PM CDT [facility] SPECIAL REQUESTS NO SPECIAL REQUEST 11/13/2020 10:55 PM CDT [facility] CULTURE RESULT POLYMICROBIAL GROWTH CONSISTENT WITH NORMAL GENITAL RYANN. ?? SUSCEPTIBILITIES NOT ROUTINELY PERFORMED. 11/15/2020 8:57 AM CDT [facility] URINE SPECIMEN OBTAINED BY CLEAN CATCH PROCEDURE / Unknown 11/13/2020 9:27 PM CDT 11/13/2020 10:56 PM CDT Senthil Vargas MD,PHD MICROBIOLOGY - GENERAL ORD ERABLES Final Result Performing Organization Address [facility] Co de Phone Number [facility] [address] [place] [address], [place] [phone] [facility] [address] [place] [address], [place] [phone] * TROPONIN, QUANT (11/13/2020 9:27 PM CDT) TROPONIN I <0.017 0.000 - 0.056 ng/mL. 11/13/2020 9:52 PM CDT [facility] Comment: NORMAL: LESS THAN OR EQUAL TO 0.056 NG/ML INDETERMINATE ZONE: 0.057 TO 0.599 NG/ML CONDITIONS RESULTING IN MYOCARDIAL CELL DAMAGE CAN POTENTIALLY INCREASE LEVELS ABOVE THE EXPECTED RANGE. HIGH DOSES OF BIOTIN MAY INTERFERE WITH THIS TEST RESULT. CORRELATION TO CLINICAL HISTORY AND PRESENTATION RECOMMENDED. 11/13/2020 9:27 PM CDT us Senthil Vargas MD,PHD LABORATORY Final Resu Performing Organization Address [facility] de Phone Number [facility] [address] [place] [address], [place] [phone] * THYROXINE, FREE (FT4) (11/13/2020 9:27 PM CDT) FREE T4 1.02 0.76 - 1.46 NG/DL 11/13/2020 9:55 PM CDT [facility] 11/13/2020 9:27 PM CDT us Senthil Vargas MD,PHD LABORATORY Final Formerly [facility] Performing Organization Address [facility] de Phone Number [facility] [address] [place] [address], [place] [phone] * TSH W/REFLEX (11/13/2020 9:27 PM CDT) TSH 1.094 0.358 - 3.74 uIU/ML 11/13/2020 9:55 PM CDT [facility] Comment: HIGH DOSES OF BIOTIN MAY INTERFERE WITH THIS TEST RESULT. CORRELATION TO CLINICAL HISTORY AND PRESENTATION RECOMMENDED. FREE T4 NOT INDICATED 11/13/2020 9:27 PM CDT us Senthil Vargas MD,PHD LABORATORY Final Formerly [facility] Performing Organization Address [facility]/ZIP Co de Phone Number [facility] [address] [place] [address], [place] [phone] * LIPASE (11/13/2020 9:27 PM CDT) LIPASE 117 73 - 393 UNITS/L 11/13/2020 9:55 PM CDT [facility] 11/13/2020 9:27 PM CDT us Senthil Vargas MD,PHD LABORATORY Final Resu lt Performing Organization Address [facility] Co de Phone Number [facility] [address] [place] [address], [place] [phone] * PHOSPHORUS, INORGANIC PHOSPHATE (11/13/2020 9:27 PM CDT) PHOSPHORUS 3.2 2.5 - 4.9 MG/DL 11/13/2020 9:55 PM CDT [facility] 11/13/2020 9:27 PM CDT us Senthil Vargas MD,PHD LABORATORY Final Resu lt Performing Organization Address [facility] Co de Phone Number [facility] [address] [place] [address], [place] [phone] * MAGNESIUM (11/13/2020 9:27 PM CDT) MAGNESIUM 1.8 1.8 - 2.4 MG/DL 11/13/2020 9:55 PM CDT [facility] 11/13/2020 9:27 PM CDT us Senthil Vargas MD,PHD LABORATORY Final Resu lt Performing Organization Address City/[facility]/ZIP Co de Phone Number [facility] [address] [place] [address], [place] [phone] * (ABNORMAL) COMPREHENSIVE METABOLIC PANEL (11/13/2020 9:27 PM CDT) GLUCOSE 89 70 - 99 MG/DL 11/13/2020 9:55 PM CDT [facility] BUN 10 7 - 18 MG/DL 11/13/2020 9:55 PM CDT [facility] CREATININE S/P/B 0.77 0.55 - 1.02 MG/DL 11/13/2020 9:55 PM CDT [facility] SODIUM S/P/B 142 136 - 145 MMOL/L 11/13/2020 9:55 PM CDT [facility] POTASSIUM S/P/B 2.9(LL) 3.5 - 5.1 MMOL/L 11/13/2020 9:55 PM CDT [facility] Comment:AF CALLED CRITICAL R ESULTS AT [id number] TO AND READ BACK BY NAHOMI MANCIA CHLORIDE S/P/B 106 100 - 108 MMOL/L 11/13/2020 9:55 PM CDT [facility] CO2 23.4 21 - 32 MMOL/L 11/13/2020 9:55 PM CDT [facility] CALCIUM S/P/B 9.5 8.5 - 10.1 MG/DL 11/13/2020 9:55 PM CDT [facility] BILIRUBIN TOTAL S/P/B 0.6 0.2 - 1.2 MG/DL 11/13/2020 9:55 PM CDT [facility] TOTAL PROTEIN S/P/B 7.9 6.4 - 8.2 G/DL 11/13/2020 9:55 PM CDT [facility] ALBUMIN S/P/B 4.1 3.4 - 5.0 G/DL 11/13/2020 9:55 PM CDT [facility] AST 15 15 - 37 U/L 11/13/2020 9:55 PM CDT [facility] ALT 21 14 - 55 U/L 11/13/2020 9:55 PM CDT [facility] ALKALINE PHOSPHATASE S/P/B 54 50 - 136 U/L 11/13/2020 9:55 PM CDT [facility] ANION GAP 12.6 5 - 15 MMOL/L 11/13/2020 9:55 PM CDT [facility] BUN CREATININE RATIO 13.0 6 - 26 11/13/2020 9:55 PM CDT [facility] A/G RATIO 1.1 1.0 - 2.0 RATIO 11/13/2020 9:55 PM CDT [facility] EGFR NON-AFR. AMER. >90 >90 ML/MIN/1.7 3 M2 11/13/2020 9:55 PM CDT [facility] EGFR AFR. AMER. >90 >90 ML/MIN/1.7 3 M2 11/13/2020 9:55 PM T [facility] Comment: NOTE: eGFR is not calculated for patients <18 years of age. This is an estimated GFR (CKD EPI) and should not be used for calculating drug doses. 11/13/2020 9:27 PM CDT us Senthil Vargas MD,PHD LABORATORY Final Resu lt [facility] [address] [place] [address], [place] [phone] * (ABNORMAL) CBC W/DIFF AUTOMATED (11/13/2020 9:27 PM CDT) WBC 12.1(H) 4.4 - 11.0 x10'3/uL 11/13/2020 9:30 PM CDT [facility] RBC 4.10(L) 4.50 - 5.10 x10'6/uL 11/13/2020 9:30 PM CDT [facility] HGB 12.3 12.3 - 15.3 G/DL 11/13/2020 9:30 PM CDT [facility] HCT 36.9 35.9 - 44.6 % 11/13/2020 9:30 PM CDT [facility] MCV 90.0 80.0 - 96.0 FL 11/13/2020 9:30 PM CDT [facility] MCH 30.0 25.3 - 30.9 PG 11/13/2020 9:30 PM CDT [facility] MCHC 33.3 31.0 - 34.1 G/DL 11/13/2020 9:30 PM CDT [facility] RDW 12.4 12.4 - 15.1 % 11/13/2020 9:30 PM CDT [facility] PLT 263 151 - 353 x10'3/uL 11/13/2020 9:30 PM CDT [facility] MPV 10.8 9.6 - 12.0 FL 11/13/2020 9:30 PM CDT [facility] RBC MORPHOLOGY NORMAL 11/13/2020 9:30 PM CDT [facility] PLT MORPH. NORMAL 11/13/2020 9:30 PM CDT [facility] WBC MORPHOLOGY NORMAL 11/13/2020 9:30 PM CDT [facility] LYMPHOCYTES % 18.2 15.8 - 45.0 % 11/13/2020 9:30 PM CDT [facility] NEUTROPHILS % 71.8 42.1 - 71.9 % 11/13/2020 9:30 PM CDT [facility] MONOCYTES % 8.1 5.7 - 12.5 % 11/13/2020 9:30 PM CDT [facility] EOSINOPHILS 1.2 0.0 - 5.6 % 11/13/2020 9:30 PM CDT [facility] BASOPHILS 0.3 0.0 - 1.3 % 11/13/2020 9:30 PM CDT [facility] ABS. NEUTROPHILS TOTAL 8.70(H) 1.40 - 6.00 x10'3/uL 11/13/2020 9:30 PM CDT [facility] IMMATURE GRANS % 0.4 0.0 - 0.5 % 11/13/2020 9:30 PM CDT [facility] ABS. LYMPHOCYTES 2.21 0.80 - 4.70 x10'3/uL 11/13/2020 9:30 PM CDT [facility] 11/13/2020 9:27 PM CDT Senthil Vargas MD,PHD LABORATORY Final Resu lt [facility] [address] [place] [address], [place] [phone] * TEST URINE (11/13/2020 9:27 PM CDT) SPECIFIC GRAVITY (U) 1.010 11/13/2020 9:34 PM CDT [facility] PREG TEST NEGATIVE NEGATIVE 11/13/2020 9:34 PM CDT [facility] URINE SPECIMEN OBTAINED BY CLEAN CATCH PROCEDURE / Unknown 11/13/2020 9:27 PM CDT Senthil Vargas MD,PHD URINE ORDERABLES Final Res ult [facility] [address] [place] [address], [place] [phone] * (ABNORMAL) URINALYSIS, AUTO, COMPLETE (11/13/2020 9:27 PM CDT) COLOR (U) ORANGE 11/13/2020 9:41 PM CDT [facility] TRANSPARENCY CLOUDY 11/13/2020 9:41 PM CDT [facility] SPECIFIC GRAVITY (U) 1.010 1.000 - 1.030 11/13/2020 9:41 PM CDT [facility] U PH 5.0 5.0 - 9.0 11/13/2020 9:41 PM CDT [facility] LEUKOCYTES (U) TRACE(A) NEGATIVE 11/13/2020 9:41 PM CDT [facility] NITRITES POSITIVE(A) NEGATIVE 11/13/2020 9:41 PM CDT [facility] PROTEIN (U) 1+(A) NEGATIVE 11/13/2020 9:41 PM CDT [facility] URINE GLUCOSE TRACE(A) NEGATIVE 11/13/2020 9:41 PM CDT [facility] KETONES MG/DL (U) 3+(A) NEGATIVE 11/13/2020 9:41 PM CDT [facility] BILIRUBIN (U) NEGATIVE NEGATIVE 11/13/2020 9:41 PM CDT [facility] BLOOD (U) NEGATIVE NEGATIVE 11/13/2020 9:41 PM CDT [facility] WBC/HPF 5-10 0 - 5 /HPF 11/13/2020 9:41 PM CDT [facility] RBC/HPF 0-5 0 - 5 /HPF 11/13/2020 9:41 PM CDT [facility] EPI/HPF MODERATE /HPF 11/13/2020 9:41 PM CDT [facility] BACTERIA (U) FEW /HPF 11/13/2020 9:41 PM CDT [facility] URINE SPECIMEN OBTAINED BY CLEAN CATCH PROCEDURE / Unknown 11/13/2020 9:27 PM CDT us Senthil Vargas MD,PHD URINE ORDERABLES Final Res ult [facility] [address] [place] [address], [place] [phone] documented in this encounter Visit Diagnoses Diagnosis Pyelonephritis- Primary Pyelonephritis, unspecified Pyelonephritis Pyelonephritis, unspecified documented in this encounter Admitting Diagnoses Diagnosis Pyelonephritis Pyelonephritis, unspecified documented in this encounter Administered Medications Inactive Administered Medications - up to 3 most recent administrations Medication Order MAR Action Action Date Dose Rate Site 0.9 % NaCl with KCl 20 mEq infusion at 75 mL/hr, Intravenous, Once, 1 dose, On Sat11/14/20 at 0045 New 11/14/2020 12:47 AM CDT 75 mL/hr 75 mL/hr 0.9 % NaCl with KCl 20 mEq infusion at 125 mL/hr, Intravenous, Continuous, Starting on Sat11/14/20 at 0845, Until Sat11/15/20 at 0916 New 11/15/2020 4:23 AM CDT 125 mL/hr 125 mL/hr New 11/14/2020 9:04 PM CDT 125 mL/hr 125 mL/hr New [facility] 11/14/2020 12:20 PM CDT 125 mL/hr 125 mL/hr acetaminophen (TYLENOL) tablet 650 mg 650 mg, Oral, Every 4 hours PRN, Fever, Discomfort, Starting on Sat11/14/20 at 0025, Until Sat11/15/20 at 1332, Maximum dose of acetaminophen is 4000 mg from all sources in 24 hours. Given 11/15/2020 8:13 AM CDT 650 mg cefTRIAXone (ROCEPHIN) 1 g in sterile water 10 mL IV 1 g, Intravenous, at 120 mL/hr, Every 24 hours, First dose (after last reorder) on Sat11/14/20 at 2200, Until Discontinued Given 11/14/2020 9:53 PM CDT 1 g 120 mL /hr cefTRIAXone (ROCEPHIN) 2 g in sterile water 20 mL IV 2 g, Intravenous, at 240 mL/hr, Once, 1 dose, On Sat11/13/20 at 2130 Given 11/13/2020 9:59 PM CDT 2 g 240 mL/hr diphenhydrAMINE (BENADRYL) injection 50 mg 50 mg, Intravenous, Once, 1 dose, On Sat11/13/20 at 2215, For IV administration, give no faster than 25 mg/min. Given 11/13/2020 10:10 PM CDT 50 mg enoxaparin (LOVENOX) 40 MG/0.4ML syringe 40 mg 40 mg, Subcutaneous, Nightly (enoxaparin), First dose on Sat11/14/20 at 0045, Until Discontinued, Administer by deep SubQ injection alternating between the left or right anterolateral and left or right posterolateral abdominal wall. ondansetron (ZOFRAN) injection 4 mg 4 mg, Intravenous, Every 8 hours PRN, Nausea, Vomiting, Starting on Sat11/14/20 at 0025, Until Sat11/15/20 at 1332, IV push over 2-5 minutes. Given 11/14/2020 8:57 PM CDT 4 mg potassium chloride CR (KLOR-CON M) tablet 40 mEq 40 mEq, Oral, Once, 1 dose, On Sat11/13/20 at 2200, Do not chew, crush, or suck on tablet. May break in half. May dissolve whole tablet in 120 mL of water and drink immediately. Given 11/13/2020 9:59 PM CDT 40 mEq prochlorperazine (COMPAZINE) injection 10 mg 10 mg, Intravenous, Once, 1 dose, On Sat11/13/20 at 2130, If giving IV, administer diluted or undiluted by slow IV push at a maximum rate of 5 mg/minute. To reduce the risk of hypotension the patient must remain lying down and be observed for 30 minutes after receiving the medication. Given 11/13/2020 9:59 PM CDT 10 mg sodium chloride 0.9% bolus infusion SOLN 1,000 mL 1,000 mL, Intravenous, Administer over 15 Minutes, Once, 1 dose, On 11/13/20 at 2130 New Bag 11/13/2020 9:59 PM CDT 1,000 mLs documented in this encounter Active and Recently Administered Medications Times are shown in CDT. Scheduled Medication Order 11/13/2020 11/14/2020 11/15/2020 0.9 % NaCl with KCl 20 mEq infusion (COMPLETED) at 75 mL/hr, Intravenous, Once, 1 dose, On Sat11/14/20 at 0045 004 (New Bag - Provider: Teresa Ferreira RN) cefTRIAXone (ROCEPHIN) 1 g in sterile water 10 mL IV 1 g, Intravenous, at 120 mL/hr, Every 24 hours, First dose (after last reorder) on Sat11/14/20 at 2200, Until Discontinued 2152 (Given - Provider: Christal Vazquez RN) cefTRIAXone (ROCEPHIN) 2 g in sterile water 20 mL IV (COMPLETED) 2 g, Intravenous, at 240 mL/hr, Once, 1 dose, On 11/13/20 at 2130 2158 (Given - Provider: Nahomi Montoya RN) diphenhydrAMINE (BENADRYL) injection 50 mg (COMPLETED) 50 mg, Intravenous, Once, 1 dose, On Sat11/13/20 at 2215, For IV administration, give no faster than 25 mg/min. 2209 (Given - Provider: Nahomi Montoya RN) enoxaparin (LOVENOX) 40 MG/0.4ML syringe 40 mg(Linked Group 1) 40 mg, Subcutaneous, Nightly (enoxaparin), First dose on Sat11/14/20 at 0045, Until Discontinued, Administer by deep SubQ injection alternating between the left or right anterolateral and left or right posterolateral abdominal wall. 42 (Not Given - Provider: Teresa Ferreira RN - Reason: Patient/family declined)2058 (Not Given - Provider: Christal Vazquez RN - Reason: Patient/family declined) potassium chloride CR (KLOR-CON M) tablet 40 mEq (COMPLETED) 40 mEq, Oral, Once, 1 dose, On Sat11/13/20 at 2200, Do not chew, crush, or suck on tablet. May break in half. May dissolve whole tablet in 120 mL of water and drink immediately. 2158 (Given - Provider: Nahomi Montoya RN) prochlorperazine (COMPAZINE) injection 10 mg (COMPLETED) 10 mg, Intravenous, Once, 1 dose, On Sat11/13/20 at 2130, If giving IV, administer diluted or undiluted by slow IV push at a maximum rate of 5 mg/minute. To reduce the risk of hypotension the patient must remain lying down and be observed for 30 minutes after receiving the medication. 2158 (Given - Provider: Nahomi Montoya, GAVINO) sodium chloride 0.9% bolus infusion SOLN 1,000 mL (COMPLETED) 1,000 mL, Intravenous, Administer over 15 Minutes, Once, 1 dose, On Sat11/13/20 at 2130 2158 (New Bag - Provider: Nahomi Montoya RN)2213 (Due: Infusion Stop Time - Provider: Nahomi Montoya RN) Continuous Medication Order 11/13/2020 11/14/2020 11/15/2020 0.9 % NaCl with KCl 20 mEq infusion (CANCELED) at 125 mL/hr, Intravenous, Continuous, Starting on Sat11/14/20 at 0845, Until Sat11/15/20 at 0916 0943 (Rate/Dose Change - Provider: Meryl Daniel RN)1220 (New Bag - Provider: Meryl Daniel RN)2104 (New Bag - Provider: Christal Vazquez, GAVINO) 0423 (New Bag - Provider: Christal Vazquez RN) PRN Medication Order 11/13/2020 11/14/2020 11/15/2020 acetaminophen (TYLENOL) tablet 650 mg 650 mg, Oral, Every 4 hours PRN, Fever, Discomfort, Starting on Sat11/14/20 at 0025, Until Sat11/15/20 at 1332, Maximum dose of acetaminophen is 4000 mg from all sources in 24 hours. 0813 (Given - Provid er: Cinthia Rollins RN) ketorolac (TORADOL) injection 15 mg 15 mg, Intravenous, Every 6 hours PRN, Moderate pain (Scale 4 - 7), Starting on Sat11/14/20 at 0025, Until Sat11/15/20 at 1332, For IV administration, give over 15 seconds. ondansetron (ZOFRAN) injection 4 mg 4 mg, Intravenous, Every 8 hours PRN, Nausea, Vomiting, Starting on Sat11/14/20 at 0025, Until Sat11/15/20 at 1332, IV push over 2-5 minutes. 2056 (Given - Provider: Christal Vazquez RN) polyethylene glycol (GLYCOLAX) packet 17 g 17 g, Oral, Daily as needed, Constipation, Starting on Sat11/14/20 at 0025, Until Sat11/15/20 at 1332, If both senna and polyethylene glycol are ordered, use 1st; if no response by next dosing interval, go to next option. Linked Groups Order Group 1: enoxaparin (LOVENOX) 40 MG/0.4ML syringe 40 mgJump to med 40 mg, Subcutaneous, Nightly (enoxaparin), First dose on Sat11/14/20 at 0045, Until Discontinued, Administer by deep SubQ injection alternating between the left or right anterolateral and left or right posterolateral abdominal wall. And Moderate Risk for VTE (COMPLETED) documented in this encounter Care Teams Blow Mold Operator Relationship Specialty Start Date End Date None, Provider, PCP - General 11/13/20 11/23/20 documented as of this encounter
--- OUTSIDE RECORDS SUMMARY | 2024-04-25 11:13 | XMS_ITS | Encounter Summary ---
Author Organization [facility] Address [address] [place], [place] [address] [place] [id number] Care Team Providers Care Grocery Stock Clerk Name Role Phone None, Provider Primary Care Provider Unavaila ble Encounter Details Date Type Department Care Team (Latest Contact Info) Description 11/14/2020 Travel Social History Tobacco Use Types Packs/Day [...] AM CDT documented as of this encounter Functional Status * Question Answer Date of Assessment Author Status Do you have serious difficulty walking or climbing stairs? No 11/14/2020 12:39 AM CDT Teresa Ferreira RN Act jorje * Question Answer Date of Assessment Author Status Do you have difficulty dressing or bathing? No 11/14/2020 12:39 AM Teresa Apodaca RN Active Because of a physical, mental, or emotional condition, do you have difficulty doing errands alone such as visiting a doctor's office or shopping? No 11/14/2020 12:39 AM Teresa Apodaca RN Acti ve * RETIRED Are you deaf or do you have serious difficulty hearing Answer Date of Assessment Author Status No 11/14/2020 12:39 AM JESSA Rosa ve * RETIRED Are you blind or do you have serious difficulty seeing, even when wearing glasses? Answer Date of Assessment Author Status No 11/14/2020 12:39 AM JESSA Rosa ve * Do you have serious difficulty walking or climbing stairs? Answer Date of Assessment Author Status No 11/14/2020 12:39 AM Teresa Apodaca RN Active * Do you have difficulty [...] Apodaca RN Active documented in this encounter Plan of Treatment Not on file documented as of this encounter Goals Goal Patient Goal Type Associated Problems Recent Progress Patient-Stated? Author Health - patient able to perform ADLs independently General No Carolann Zhou RN documented as of this encounter Visit Diagnoses Not on filedocumented in this encounter Care Teams Grocery Stock Clerk Relationship Specialty Start Date End Date None, Provider, PCP - General 11/13/20 11/23/20 documented as of this encounter
--- OUTSIDE RECORDS SUMMARY | 2024-04-25 11:13 | XMS_ITS | Encounter Summary ---
Author Organization [facility] Address [address] [place] [address] [place] [address] Care Team Providers Care Dolphin Researcher Name Role Phone Jesus Avila MD Primary Care Provider [phone] Reason for Referral * Imaging (Emergency) - Closed Specialty Diagnoses / Procedures Referred By Steve chino Referred To Contact RADIOLOGY Procedures CT ABD+PEL WO CON Billy Menendez PA-C [address] [address] Phone: tel: fax: Referral ID Status Reason Start Date Expiration Date Visits Re quested Visits Authorized [id number] Closed 11/24/2020 12/25/2021 1 1 Reason for Visit * Reason Comments Musculoskeletal Pain Encounter Details Date Type Department Care Team (Late st Contact Info) Description 11/24/2020 10:07 AM CDT - 11/24/2020 2:22 PM CDT Emergency [facility] [place] [address] Billy Menendez PA-C [address] [id number] Musculoskeletal Pain Discharge Disposition: Home or Self Care (Routine [...] have Coronavirus / COVID-19? No / Unsure 11/24/2020 9:21 AM CDT documented as of this encounter Last Filed Vital Signs Vital Sign Reading Time Taken Comments Blood Pressure 129/78 11/24/2020 2:14 PM CDT Pulse 85 11/24/2020 2:14 PM CDT Temperature 37.1 ??C (98.7 ??F) 11/24/2020 9:36 AM CDT Respiratory Rate 18 11/24/2020 2:14 PM CDT Oxygen Saturation 100% 11/24/2020 2:14 PM CDT Inhaled Oxygen Concentration - - Weight 53.9 kg (118 lb 13.3 oz) 11/24/2020 9:36 AM CDT Height 152.4 cm (5') 11/24/2020 9:36 AM CDT Body Mass Index 23.21 11/24/2020 9:36 AM CDT documented in this encounter Functional Status * RETIRED Are you deaf or do [...] AM CDT Teresa Ferreira RN Active * Because of a physical, mental, or emotional condition, do you have difficulty doing errands alone such as visiting a doctor's office or shopping? Answer Date of Assessment Author Status No 11/14/2020 12:39 AM DMITRIT Teresa Ferreira RN Active documented as of this encounter Mental Status * Because of a physical, mental, or emotional condition, do you have serious difficulty concentrating, remembering, or making decisions? Answer Entry Date Author Status No 11/14/2020 12:39 AM CDT Teresa Ferreira RN Active documented in this encounter Discharge Instructions * Discharge Instructions* Billy Menendez PA-C - 11/24/2020 2:19 PM CDT Continue any chronic home medications including your Zoloft. Nyus-bko-yghjhoz pain reliever as needed. Follow-up closely with your primary doctor regarding anxiety and continued recurrent dysuria. * Attachments The following attachments cannot be sent through Care Everywhere. * Anxiety Discharge Instructions, Adult ([facility]) documented in this encounter ED Notes * Nallely Sandoval RN - 11/24/2020 2:21 PM CDT Provider discussed today's findings with the patient/family. The patient has been given informationregarding their treatment, follow up and concerning symptoms for which they should seek urgent or emergent attention. I have expressed the the importance of seeking attention should there be any new,or worsening symptoms or persistence of their condition. Patient verbalized understanding of the discharge instructions. * Billy Menendez PA-C - 11/24/2020 12:28 PM CDTSummary: multiple complaints ED NOTE Nichole Stout 1995 Chief Complaint Chief Complaint Patient presents with ??? Musculoskeletal Pain History of Present Illness 24-year-old white female patient with history of anxiety who is on Zoloft, presents to the emergency room ambulatory through triage with complaints of anxiety, bilateral back pain, tingling with urination, she is concerned for urinary tract infection. She also reports chest burning and headache. Patient obviously anxious and tearful at times of exam. She states she had a recent kidney infection versus UTI, states that she was admitted to [facility] in [facility] after being seen in the ER and diagnosed with UTI/sepsis. She completed IV antibiotics and was discharged home on Omnicef. She states that she was contacted via a staff member who informed her that her urine culture did not grow any bacteria. She states that earlier this week on Saturday she again was having back pain and chills, she was seen at [facility] emergency room and had blood work and CT abdomen/pelvis which did not yield any pertinent results. She states that she was diagnosed with continued UTI per urine sample, and discharged home on ciprofloxacin which she had been taking. She followed up with her PCP earlier this week, who decided to take her off of the ciprofloxacin without completing it. Today she returns to the ER complaining of similar symptoms of back pain and dysuria. No fever reported today, but she does report continued fevers of 101-102 Fahrenheit throughout the week at home. No cardiac history reported. No difficulty with urine stream. No history of renal stone. Denies vaginal discharge or sores, denies . Denies concern for STD. Does not take control. Nohistory of blood clot. Medical History ALLERGIES: Allergies Allergen Reactions ??? Keflex [Cephalexin] Vomiting ??? Donatussin [[id number]] Hives ??? Drug Ingredient [Prochlorperazine] Other (see comment) Increased Heart Rate ??? Gluten Meal Diarrhea MEDICATIONS: Prior to Admission medications Not on File PAST MEDICAL HISTORY: Past Medical History: Diagnosis Date ??? Celiac disease PAST SURGICAL HISTORY: Past Surgical History: Procedure Laterality Date ??? CHOLECYSTECTOMY FAMILY HISTORY: Family History Problem Relation Name Age of Onset ??? Cancer Mother ??? No Known Problems Father ??? Other (hypothyroidism) Brother ??? Heart Disease Maternal Grandfather SOCIAL HISTORY: Social History Tobacco Use ??? Smoking status: Never Smoker ??? Smokeless tobacco: Never Used Substance Use Topics ??? Alcohol use: Never ??? Drug use: Never Review of Systems Review of Systems Constitutional: Positive for chills and fever. Negative for activity change, appetite change and unexpected weight change. HENT: Negative for ear pain, sore throat and trouble swallowing. Eyes: Negative. Respiratory: Negative for cough, chest tightness and shortness of breath. Cardiovascular: Positive for chest pain. Negative for palpitations and leg swelling. Gastrointestinal: Negative for abdominal distention, abdominal pain, constipation, diarrhea, nauseaand vomiting. Endocrine: Negative. Genitourinary: Positive for dysuria and flank pain. Negative for decreased urine volume, difficultyurinating, genital sores, hematuria, menstrual problem, vaginal bleeding, vaginal discharge and vaginal pain. Musculoskeletal: Negative for arthralgias, back pain, myalgias and neck pain. Skin: Negative for color change, rash and wound. Allergic/Immunologic: Negative for immunocompromised state. Neurological: Positive for headaches. Negative for dizziness, speech difficulty, weakness, light-headedness and numbness. Hematological: Negative for adenopathy. Psychiatric/Behavioral: The patient is nervous/anxious. Physical Exam Filed Vitals: 11/24/20 0936 11/24/20 1414 BP: 121/85 129/78 Pulse: 74 85 Resp: 18 18 Temp: 98.7 ??F (37.1 ??C) TempSrc: Oral SpO2: 99% 100% Weight: 53.9 kg (118 lb 13.3 oz) Height: 5' (1.524 m) Physical Exam Vitals and nursing note reviewed. Exam conducted with a research physician present. Constitutional: General: She is not in acute distress. Appearance: Normal appearance. She is well-developed and normal weight. She is not ill-appearing, toxic-appearing or diaphoretic. Comments: No abnormal vital signs or sirs criteria per vital signs HENT: Head: Normocephalic and atraumatic. Right Ear: External ear normal. Left Ear: External ear normal. Nose: Nose normal. Mouth/Throat: Mouth: Mucous membranes are moist. Pharynx: Oropharynx is clear. Eyes: Extraocular Movements: Extraocular movements intact. Conjunctiva/sclera: Conjunctivae normal. Pupils: Pupils are equal, round, and reactive to light. Neck: Thyroid: No thyromegaly. Trachea: No tracheal deviation. Cardiovascular: Rate and Rhythm: Normal rate and regular rhythm. Pulses: Normal pulses. Heart sounds: Normal heart sounds. No murmur. No friction rub. No gallop. Pulmonary: Effort: Pulmonary effort is normal. No respiratory distress. Breath sounds: Normal breath sounds. No stridor. No wheezing, rhonchi or rales. Comments: No painful breathing reported during exam Chest: Chest wall: No tenderness. Abdominal: General: Abdomen is flat. Bowel sounds are normal. There is no distension. Palpations: Abdomen is soft. There is no mass. Tenderness: There is no abdominal tenderness. There is no right CVA tenderness, left CVA tenderness, guarding or rebound. Hernia: No hernia is present. Musculoskeletal: General: No swelling, tenderness, deformity or signs of injury. Normal range of motion. Cervical back: Normal range of motion and neck supple. No rigidity. Right lower leg: No edema. Left lower leg: No edema. Lymphadenopathy: Cervical: No cervical adenopathy. Skin: General: Skin is warm and dry. Capillary Refill: Capillary refill takes less than 2 seconds. Findings: No rash. Neurological: General: No focal deficit present. Mental Status: She is alert and oriented to person, place, and time. Cranial Nerves: No cranial nerve deficit. Sensory: No sensory deficit. Motor: No weakness. Coordination: Coordination normal. Gait: Gait normal. Deep Tendon Reflexes: Reflexes normal. Psychiatric: Behavior: Behavior normal. Thought Content: Thought content normal. Judgment: Judgment normal. Comments: Anxiety at times. Tearfulness at times Diagnostic Studies / Procedures ELECTROCARDIOGRAMS: Results for orders placed or performed during the hospital encounter of 11/24/20 ECG 12 lead Narrative [address] Test Date: 2020-11-24 Pat Name: NICHOLE STOUT Department: Room: [facility] Gender: Female Rn Supplemental: : 1995 Requested By: BILLY MENENDEZ Order Number: [id number] Reading MD: Measurements Intervals Malo Rate: 67 P: 7 NJ: 94 QRS: 50 QRSD: 89 T: 53 QT: 351 QTc: 372 Interpretive Statements SINUS RHYTHM WITH SHORT NJ INTERVAL Compared to ECG 11/13/2020 21:43:52 Short NJ interval now present EKG shows a sinus rhythm with short NJ interval, rate 67, no ischemia, no ectopy LABORATORY STUDIES: Results for orders placed or performed during the hospital encounter of 11/24/20 CBC W/DIFF AUTOMATED Result Value Ref Range WBC 8.8 4.5 - 11.0 x10'3/uL RBC 4.58 4.20 - 5.40 x10'6/uL HGB 13.9 12.0 - 16.0 G/DL HCT 42.0 38.0 - 48.0 % MCV 91.7 81.0 - 99.0 FL MCH 30.3 27.0 - 31.0 PG MCHC 33.1 32.0 - 36.0 G/DL RDW 12.7 11.5 - 14.5 % PLT 314 130 - 400 x10'3/uL MPV 11.2 9.3 - 12.2 FL DIFFERENTIAL TYPE AUTOMATED DIFFERENTIAL NEUTROPHILS 77.4 % LYMPHOCYTES 16.5 % MONOCYTES 5.1 % EOSINOPHILS 0.6 % BASOPHILS 0.2 % IMMATURE GRANS 0.2 % ABS. NEUTROPHILS TOTAL 6.79 1.80 - 7.70 x10'3/uL ABS. LYMPHOCYTES 1.45 1.00 - 4.80 x10'3/uL ABS. MONOCYTES 0.45 0.24 - 0.86 x10'3/uL ABS. EOSINOPHILS 0.05 0.04 - 0.36 x10'3/uL ABS. BASOPHILS 0.02 0.01 - 0.08 x10'3/uL ABS. IMMATURE GRANULOCYTES 0.02 0.00 - 0.49 x10'3/uL COMPREHENSIVE METABOLIC PANEL Result Value Ref Range GLUCOSE 92 70 - 99 MG/DL BUN 8 7 - 18 MG/DL CREATININE S/P/B 0.80 0.55 - 1.02 MG/DL SODIUM 138 136 - 145 MMOL/L POTASSIUM 3.6 3.5 - 5.1 MMOL/L CHLORIDE S/P/B 108 100 - 108 MMOL/L CO2 25.2 21 - 32 MMOL/L CALCIUM 9.3 8.5 - 10.1 MG/DL BILIRUBIN TOTAL S/P/B 0.9 0.2 - 1.2 MG/DL TOTAL PROTEIN S/P/B 8.7 (H) 6.4 - 8.2 G/DL ALBUMIN S/P/B 4.4 3.4 - 5.0 G/DL AST 12 (L) 15 - 37 U/L ALT 21 14 - 55 U/L ALKALINE PHOSPHATASE S/P/B 61 50 - 136 U/L ANION GAP 4.8 (L) 5 - 15 MMOL/L BUN CREATININE RATIO 10.1 6 - 26 A/G RATIO 1.0 1.0 - 2.0 RATIO eGFR Non-Afr. Amer. >90 >90 ML/MIN/1.73 M2 eGFR Afr. Amer. >90 >90 ML/MIN/1.73 M2 LIPASE Result Value Ref Range LIPASE 84 73 - 393 UNITS/L URINALYSIS Result Value Ref Range Specimen Type URINE CLEAN CATCH COLOR (U) LIGHT YELLOW TRANSPARENCY CLEAR Specific [place] (U) 1.014 1.001 - 1.030 U PH 7.0 5.0 - 9.0 LEUKOCYTE ESTERASE 500 (A) NEGATIVE NITRITES NEGATIVE NEGATIVE PROTEIN (U) NEGATIVE <30 MG/DL URINE GLUCOSE NORMAL NORMAL MG/DL U KETONES NEGATIVE NEGATIVE MG/DL UROBILINOGEN NORMAL NORMAL MG/DL BILIRUBIN (U) NEGATIVE NEGATIVE MG/DL BLOOD TRACE (A) NEGATIVE CULTURE & SENSITIVITY INDICATED? SPECIMEN SETUP FOR CULTURE MUCUS RARE /LPF WBC/HPF 3 <6 /HPF RBC/HPF 6 (H) <6 /HPF SQUAMOUS EPITHELIALS FEW /HPF TSH W/REFLEX Result Value Ref Range TSH 1.870 0.358 - 3.74 uIU/ML POCT urine Result Value Ref Range URINE HCG TEST Negative NEGATIVE Internal Control performed as Expected? Control: Positive VALID IMAGING STUDIES CT ABD+PEL WO CON Final Result by User, [id number] (11/24 1245) EXAMINATION: CT Abdomen and Pelvis without contrast EXAM DATE/TIME: 11/24/2020 12:18 PM REASON FOR EXAM: recent kidney infection Nausea/vomiting, negative test. COMPARISON: None TECHNIQUE: Computed tomography of the abdomen and pelvis was obtained without administration of intravenous contrast according to routine protocol. Sagittal and coronal reconstruction. A dose lowering technique was used for this [...] uterus. No pelvic mass or adenopathy. No acute inflammatory change, abscess or ascites. Chronic degenerative disc disease at the lumbosacral junction. =====IMPRESSION:===== 1. No acute inflammatory change, abscess or ascites. 2. No evidence of mechanical bowel obstruction or perforation. 3. No evidence of ureteral stone or hydronephrosis. Referred By: BILLY MENENDEZ Interpreted By: Arthur Rodriguez MD, 11/24/2020 12:37 PM ED Course / Medical Decision Making MDM Number of Diagnoses or Management Options Amount and/or Complexity of Data Reviewed Clinical lab tests: ordered and reviewed Tests in the radiology section of CPT??: ordered and reviewed PERC score 0, PE unlikely 1418-patient stable. No acute distress or respiratory distress noted. Obvious anxiety noted. Otherwise unremarkable physical exam. Abdomen benign. No CVA tenderness. Lungs clear bilaterally. Heart sounds normal. No neurofocal deficits. Labs unremarkable for acute concern. CT abdomen/pelvis unremarkable for acute concern. EKG without acute concern. Will discharge home with recommendation to continue her PCP provided Zoloft, and to follow-up with her PCP regarding anxiety and continued dysuria. Patient may benefit from outpatient urology referral. Medications - No data to display Clinical Impression Anxiety (Primary) Back pain, unspecified back location, unspecified back pain laterality, unspecified chronicity Dysuria Acute nonintractable headache, unspecified headache type There are no discharge medications for this patient. Disposition: Discharge Follow-Up: Jesus Avila MD [address] [place] [address] In 2 days BILLY MENENDEZ PA-C 11/24/2020 Billy Menendez PA-C 11/24/20 1419 Cosigned by Roger Ramirez MD at 11/25/2020 6:02 AM CDT * Billy Menendez PA-C - 11/24/2020 10:36 AM CDTSummary: multiple complaints [place], [place] EMERGENCY DEPARTMENT ENCOUNTER Medical Screening Examination 11/24/20 10:36 AM Chief Complaint : Musculoskeletal Pain HPI : Nichole Stout is a 24-year-old female who presents c/o anxiety, back pain, tingling with urination. Recent kidney infection. Also reports persistent fevers for a week, has not been covid vaxx. Vital Signs: Filed Vitals: 11/24/20 0936 BP: 121/85 Pulse: 74 Resp: 18 Temp: 98.7 ??F (37.1 ??C) TempSrc: Oral SpO2: 99% Weight: 53.9 kg (118 lb 13.3 oz) Height: 5' (1.524 m) Physical exam: A brief physical exam was completed to facilitate/expedite patient care. Rivas findings include: stable Plan: labs, CT BILLY MENENDEZ PA-C 11/24/2020 Billy Menendez PA-C 11/24/20 1037 Billy Menendez PA-C 11/24/20 1046 Cosigned by Roger Ramirez MD at 11/25/2020 6:02 AM CDT * Nichole Nguyen RN - 11/24/2020 9:38 AM CDT Pt ambulatory to er for c/o burning in her head and chest that started 10-11 days ago. States it comes in waves. States it will start in her head and go down her whole body. States having chills, headcahes and nausea. Pt was admitted to [facility] for a kidney infection, and alos states she had a really bad reaction to compazine. Discharged 11/15, and went to [place] last Saturday. Was started on cipro at [place] but was d/c by pcp Saturday. Vss. Pt a&ox4. NICHOLE NGUYEN RN documented in this encounter Plan of Treatment Pending Results Name Type Priority Associated Diagnoses Date /Time ECG 12 lead EKG-NonRad Routine 11/24/2020 10 :46 AM CDT documented as of this encounter Goals Goal Patient Goal Type Associated Problems Recent Progress Patient-Stated? Author Health - patient able to perform ADLs independently General Carolann Escalera RN documented as of this encounter Procedures Procedure Name Priority Date/Time Associated Diagnosis Comments CT ABD+PEL WO CON STAT 11/24/2020 12: 23 PM CDT CORONAVIRUS (COVID 19) Routine 11/24/2020 11:05 AM CDT HC URINALYSIS AUTO W/O MICRO STAT 11/24/2020 11:05 AM CDT URINE BACTERIA CULTURE Routine 11/24/2020 11:05 AM CDT TSH W/REFLEX STAT 11/24/2020 10:57 AM CDT COMPREHENSIVE METABOLIC PANEL STAT 11/24/2020 10:57 AM CDT CBC W/DIFF AUTOMATED STAT 11/24/2020 10:57 AM CDT LIPASE STAT 11/24/2020 10:57 AM CDT POCT URINE (BACK OFFICE) STAT 11/24/2020 10:55 AM CDT ECG 12-LEAD Routine 11/24/2020 10:46 AM CDT Procedure Note - 11/24/2020 10:46 AM CDTThis note is in progress. [facility] Test Date: 2020-11-24 Pat Name: NICHOLE STOUT Department: Room: [facility] Gender: Female Rn Supplemental: YUMIKO : 1995 Requested By: BILLY MENENDEZ Order Number: [id number] Reading MD: Measurements Intervals Malo Rate: 67 P: 7 NJ: 94 QRS: 50 QRSD: 89 T: 53 QT: 351 QTc: 372 Interpretive Statements SINUS RHYTHM WITH SHORT NJ INTERVAL Compared to ECG 11/13/2020 21:43:52 Short NJ interval now present documented in this encounter Results * CT ABD+PEL WO CON (11/24/2020 12:23 PM CDT) Anatomical Region Laterality Modality Abdomen Computed Tomogra phy 11/24/2020 12:3 7 PM CDT Impressions 11/24/2020 12:44 PM CDT =====IMPRESSION:===== 1. No acute inflammatory change, abscess or ascites. 2. No evidence of mechanical bowel obstruction or perforation. 3. No evidence of ureteral stone or hydronephrosis. Referred By: BILLY MENENDEZ Interpreted By: Arthur Rodriguez MD, 11/24/2020 12:37 PM Narrative 11/24/2020 12:44 PM CDT EXAMINATION: CT Abdomen and Pelvis without contrast EXAM DATE/TIME: 11/24/2020 12:18 PM REASON FOR EXAM: ??recent kidney infection Nausea/vomiting, negative test. ?? COMPARISON: None TECHNIQUE: Computed tomography of the abdomen and pelvis was obtained without administration of intravenous contrast according to routine protocol. Sagittal and coronal reconstruction. A dose lowering technique was used for this [...] uterus. No pelvic mass or adenopathy. No acute inflammatory change, abscess or ascites. Chronic degenerative disc disease at the lumbosacral junction. Procedure Note Arthur Rodriguez MD - 11/24/2020 EXAMINATION: CT Abdomen and Pelvis without contrast EXAM DATE/TIME: 11/24/2020 12:18 PM REASON FOR EXAM: recent kidney infection Nausea/vomiting, negative test. COMPARISON: None TECHNIQUE: Computed tomography of the abdomen and pelvis was obtainedwithout administration of intravenous contrast according to routineprotocol. Sagittal and coronal reconstruction. A dose lowering technique was used for this procedure, which may include,but is not limited to, dose reduction technique, automated exposurecontrol, iterative reconstruction, ALARA (As Low As ReasonablyAchievable), or Image Gently techniques. FINDINGS: CT ABDOMEN: Visualized portions of the lung bases demonstrate no acuteabnormality. The liver is normal in size. No focal intrahepatic lesions aredemonstrated. The gallbladder has been removed. The spleen, pancreas, and the adrenal glands are unremarkable. Kidneys demonstrate no evidence of acute perirenal inflammatory strandingor fluid. There is some mild motion artifact. Small nonobstructingcalcifications are noted. No evidence of a ureteral stone norhydronephrosis on either side. No evidence of focal renal mass lesion. There is no acute inflammatory change, abscess or ascites. No evidence ofmechanical bowel obstruction or perforation. No significantlymphadenopathy. Abdominal aorta and IVC are unremarkable. CT PELVIS: There is an IUD in normal position within the uterus. No pelvicmass or adenopathy. No acute inflammatory change, abscess or ascites.Chronic degenerative disc disease at the lumbosacral junction. =====IMPRESSION:===== 1. No acute inflammatory change, abscess or ascites. 2. No evidence of mechanical bowel obstruction or perforation. 3. No evidence of ureteral stone or hydronephrosis. Referred By: BILLY MENENDEZ Interpreted By: Arthur Rodriguez MD, 11/24/2020 12:37 PM us Billy Menendez PA-C CT Final Resul t * CORONAVIRUS (COVID 19) (11/24/2020 11:05 AM CDT) CORONAVIRUS SARS COV 2 PCR (RESP) NOT DETECTED NOT DETECTED 2020 9:15 AM CDT [employer] [facility] Comment: A Not Detected (negative) test result for this test means that SARS- CoV-2 RNA was not present in the specimen above the limit of detection. A negative result does not rule out the possibility of COVID-19 and should not be used as the sole basis for treatment or patient management decisions. ??If COVID-19 is still suspected, based on exposure history together with other clinical findings, re-testing should be considered in consultation with public health authorities. Laboratory test results should always be considered in the context of clinical observations and epidemiological data in making a final diagnosis and patient management decisions. Please review the Fact Sheets and FDA authorized labeling available for health care providers and patients using the following websites: [email or web address]/home/Covid-19/HCP/QuestIVD/fact- sheet.html [email or web address]/home/[email or web address]/Patients/ QuestIVD/fact-sheet.html This test has been authorized by the FDA under an Emergency Use Authorization (EUA) for use by authorized laboratories. Due to the current public health emergency, [employer] is receiving a high volume of samples from a wide variety of swabs and media for COVID-19 testing. In order to serve patients during this public health crisis, samples from appropriate clinical sources are being tested. Negative test results derived from specimens received in non-commercially manufactured viral collection and transport media, or in media and sample collection kits not yet authorized by FDA for COVID-19 testing should be cautiously evaluated and the patient potentially subjected to extra precautions such as additional clinical monitoring, including collection of an additional specimen. Methodology: ??Nucleic Acid Amplification Test (NAAT) includes RT-PCR or TMA Additional information about COVID-19 can be found at the [employer] website: www.Realm/Covid19. Test performed at [employer] [facility] ??[id number] Director: PIERCE STOVALL DO,MPH FIRST TEST UNKNOWN 11/27/2020 2:56 PM CDT [facility] EMPLOYED IN HEALTHCARE NO 11/27/2020 2:56 PM CDT [facility] SYMPTOMATIC DEFINED BY CDC NO 11/27/2020 2:56 PM CDT [facility] DATE OF SYMPTOM ONSET NO 11/27/2020 2:56 PM CDT [facility] HOSPITALIZATION STATUS NO 11/27/2020 2:56 PM CDT [facility] PATIENT IN ICU NO 11/27/2020 2:56 PM CDT [facility] RESIDENT OF [facility] CARE NO 11/27/2020 2:56 PM CDT [facility] NOT 11/27/2020 2:56 PM CDT [facility] SOURCE (QST) NASOPHARYNGEAL SWAB 11/27/2020 2:56 PM CDT [facility] 11/24/2020 11:0 5 AM CDT us Billy Menendez PA-C MICROBIOLOGY - GENERAL LIZZY LEPE Final Result [facility] [address] [place] [address], [place] [phone] [employer] [facility] [id number] [place] [id number], [place] * CULTURE URINE (11/24/2020 11:05 AM CDT) SPEC DESCRIPTION URINE CLEAN CATCH 11/24/2020 11:43 AM CDT [facility] SPECIAL REQUESTS NO SPECIAL REQUEST 11/24/2020 11:43 AM CDT [facility] CULTURE RESULT NO GROWTH 2 DAYS 11/26/2020 9:00 AM CDT [facility] URINE SPECIMEN OBTAINED BY CLEAN CATCH PROCEDURE / Unknown 11/24/2020 11:05 AM CDT 11/24/2020 11:43 AM CDT Billy Menendez PA-C MICROBIOLOGY - GENERAL [facility] Final Result [facility] [address] [place] [address], [place] [phone] * (ABNORMAL) URINALYSIS (11/24/2020 11:05 AM CDT) SPECIMEN TYPE URINE CLEAN CATCH 11/24/2020 10:57 AM CDT [facility] COLOR (U) LIGHT YELLOW 11/24/2020 11:42 AM CDT [facility] TRANSPARENCY CLEAR 11/24/2020 11:42 AM CDT [facility] SPECIFIC GRAVITY (U) 1.014 1.001 - 1.030 11/24/2020 11:42 AM CDT [facility] U PH 7.0 5.0 - 9.0 11/24/2020 11:42 AM CDT [facility] LEUKOCYTES (U) 500(A) NEGATIVE 11/24/2020 11:42 AM CDT [facility] NITRITES NEGATIVE NEGATIVE 11/24/2020 11:42 AM CDT [facility] PROTEIN (U) NEGATIVE <30 MG/DL 11/24/2020 11:42 AM CDT [facility] URINE GLUCOSE NORMAL NORMAL MG/DL 11/24/2020 11:42 AM CDT [facility] KETONES MG/DL (U) NEGATIVE NEGATIVE MG/DL 11/24/2020 11:42 AM CDT [facility] UROBILINOGEN NORMAL NORMAL MG/DL 11/24/2020 11:42 AM T [facility] BILIRUBIN (U) NEGATIVE NEGATIVE MG/DL 11/24/2020 11:42 AM T [facility] BLOOD (U) TRACE(A) NEGATIVE 11/24/2020 11:42 AM T [facility] CULTURE & SENSITIVITY INDICATED? SPECIMEN SETUP FOR CULTURE 11/24/2020 11:42 AM T [facility] MUCUS RARE /LPF 11/24/2020 11:42 AM T [facility] WBC/HPF 3 <6 /HPF 11/24/2020 11:42 AM T [facility] RBC/HPF 6(H) <6 /HPF 11/24/2020 11:42 AM CDT [facility] SQUAMOUS EPITHELIALS FEW /HPF 11/24/2020 11:42 AM T [facility] URINE SPECIMEN OBTAINED BY CLEAN CATCH PROCEDURE / Unknown 11/24/2020 11:05 AM CDT us Billy Menendez PA-C URINE ORDERABLES Final Resu lt [facility] [address] [place] [address], * TSH W/REFLEX (11/24/2020 10:57 AM CDT) TSH 1.870 0.358 - 3.74 uIU/ML 11/24/2020 11:56 AM CDT [facility] Comment: HIGH DOSES OF BIOTIN MAY INTERFERE WITH THIS TEST RESULT. CORRELATION TO CLINICAL HISTORY AND PRESENTATION RECOMMENDED. FREE T4 NOT INDICATED 11/24/2020 10:5 7 AM CDT us Billy Menendez PA-C LABORATORY Final Resul t Performing Organization Address City/[facility]/ZIP Co de Phone Number [facility] [address] [place] [address], [place] [phone] * LIPASE (11/24/2020 10:57 AM CDT) LIPASE 84 73 - 393 UNITS/L 11/24/2020 11:56 AM CDT [facility] 11/24/2020 10:5 7 AM CDT us Billy Menendez PA-C LABORATORY Final Resul t [facility] [address] [place] [address], [place] [phone] * (ABNORMAL) COMPREHENSIVE METABOLIC PANEL (11/24/2020 10:57 AM CDT) GLUCOSE 92 70 - 99 MG/DL 11/24/2020 11:56 AM CDT [facility] BUN 8 7 - 18 MG/DL 11/24/2020 11:56 AM CDT [facility] CREATININE S/P/B 0.80 0.55 - 1.02 MG/DL 11/24/2020 11:56 AM CDT [facility] SODIUM S/P/B 138 136 - 145 MMOL/L 11/24/2020 11:56 AM T [facility] POTASSIUM S/P/B 3.6 3.5 - 5.1 MMOL/L 11/24/2020 11:56 AM T [facility] CHLORIDE S/P/B 108 100 - 108 MMOL/L 11/24/2020 11:56 AM CDT [facility] CO2 25.2 21 - 32 MMOL/L 11/24/2020 11:56 AM T [facility] CALCIUM S/P/B 9.3 8.5 - 10.1 MG/DL 11/24/2020 11:56 AM T [facility] BILIRUBIN TOTAL S/P/B 0.9 0.2 - 1.2 MG/DL 11/24/2020 11:56 AM T [facility] Comment: THIS ASSAY IS NOT RECOMMENDED FOR PATIENTS UNDERGOING TREATMENT WITH ELTROMBOPAG DUE TO THE POTENTIAL FOR FALSELY ELEVATED RESULTS. TOTAL PROTEIN S/P/B 8.7(H) 6.4 - 8.2 G/DL 11/24/2020 11:56 AM T [facility] ALBUMIN S/P/B 4.4 3.4 - 5.0 G/DL 11/24/2020 11:56 AM CDT [facility] AST 12(L) 15 - 37 U/L 11/24/2020 11:56 AM CDT [facility] ALT 21 14 - 55 U/L 11/24/2020 11:56 AM T [facility] ALKALINE PHOSPHATASE S/P/B 61 50 - 136 U/L 11/24/2020 11:56 AM T [facility] ANION GAP 4.8(L) 5 - 15 MMOL/L 11/24/2020 11:56 AM CDT [facility] BUN CREATININE RATIO 10.1 6 - 26 11/24/2020 11:56 AM CDT [facility] A/G RATIO 1.0 1.0 - 2.0 RATIO 11/24/2020 11:56 AM CDT [facility] EGFR NON-AFR. AMER. >90 >90 ML/MIN/1.7 3 M2 11/24/2020 11:56 AM CDT [facility] EGFR AFR. AMER. >90 >90 ML/MIN/1.7 3 M2 11/24/2020 11:56 AM CDT [facility] Comment: NOTE: eGFR is not calculated for patients <18 years of age. This is an estimated GFR (CKD EPI) and should not be used for calculating drug doses. 11/24/2020 10:5 7 AM CDT us Billy Menendez PA-C LABORATORY Final Resul t [facility] [address] [place] [address], [place] [phone] * CBC W/DIFF AUTOMATED (11/24/2020 10:57 AM CDT) WBC 8.8 4.5 - 11.0 x10'3/uL 11/24/2020 11:22 AM CDT [facility] RBC 4.58 4.20 - 5.40 x10'6/uL 11/24/2020 11:22 AM CDT [facility] HGB 13.9 12.0 - 16.0 G/DL 11/24/2020 11:22 AM CDT [facility] HCT 42.0 38.0 - 48.0 % 11/24/2020 11:22 AM CDT [facility] MCV 91.7 81.0 - 99.0 FL 11/24/2020 11:22 AM CDT [facility] MCH 30.3 27.0 - 31.0 PG 11/24/2020 11:22 AM T [facility] MCHC 33.1 32.0 - 36.0 G/DL 11/24/2020 11:22 AM CDT [facility] RDW 12.7 11.5 - 14.5 % 11/24/2020 11:22 AM CDT [facility] PLT 314 130 - 400 x10'3/uL 11/24/2020 11:22 AM T [facility] MPV 11.2 9.3 - 12.2 FL 11/24/2020 11:22 AM T [facility] DIFFERENTIAL TYPE AUTOMATED DIFFERENTIAL 11/24/2020 11:22 AM CDT [facility] NEUTROPHILS % 77.4 % 11/24/2020 11:22 AM CDT [facility] LYMPHOCYTES % 16.5 % 11/24/2020 11:22 AM T [facility] MONOCYTES % 5.1 % 11/24/2020 11:22 AM T [facility] EOSINOPHILS 0.6 % 11/24/2020 11:22 AM CDT [facility] BASOPHILS 0.2 % 11/24/2020 11:22 AM CDT [facility] IMMATURE GRANS % 0.2 % 11/25/19 11:22 AM T [facility] ABS. NEUTROPHILS TOTAL 6.79 1.80 - 7.70 x10'3/uL 11/24/2020 11:22 AM T [facility] ABS. LYMPHOCYTES 1.45 1.00 - 4.80 x10'3/uL 11/24/2020 11:22 AM CDT [facility] ABS. MONOCYTES 0.45 0.24 - 0.86 x10'3/uL 11/24/2020 11:22 AM CDT [facility] ABS. EOSINOPHILS 0.05 0.04 - 0.36 x10'3/uL 11/24/2020 11:22 AM CDT [facility] ABS. BASOPHILS 0.02 0.01 - 0.08 x10'3/uL 11/24/2020 11:22 AM CDT [facility] ABS. IMMATURE GRANULOCYTES 0.02 0.00 - 0.49 x10'3/uL 11/24/2020 11:22 AM CDT [facility] 11/24/2020 10:5 7 AM CDT Billy Menendez PA-C LABORATORY Final Resul t [facility] [address] [place] [address], * POCT urine (11/24/2020 10:55 AM CDT) URINE HCG TEST Negative NEGATIVE Internal Control performed as Expected? Control: Positive VALID Billy Menendez PA-C POINT OF CARE TEST ORDERABL ES Final Result documented in this encounter Visit Diagnoses Diagnosis Anxiety- Primary Anxiety state, unspecified Back pain, unspecified back location, unspecified back pain laterality, unspecified chronicity Dysuria Acute nonintractable headache, unspecified headache type documented in this encounter Additional Health Concerns Infection Onset Date Last Indicated Resolved Time COVID-19 Rule Out 11/24/2020 11/24/2020 11/27/2020 8:36 AM CDT documented as of this encounter Care Teams Dolphin Researcher Relationship Specialty Start Date End Date Jesus Avila MD [address] [place] [address] PCP - General FAMILY PRACTICE 11/24/20 documented as of this encounter
--- OUTSIDE RECORDS SUMMARY | 2024-04-25 11:13 | XMS_ITS | Clinical Summary ---
Author Organization [facility] Address [facility] [facility]. [place], [place] [address] [place] [address] Care Team Providers Care Wood Gluer Name Role Phone Jesus Avila MD Primary Care Provider [phone] Allergies Active Allergy Reactions Criticality Noted Date Comments Fioatkbsetcks-Cocijijbr-Aq Hives Prochlorperazine Other (see comment) 11/14/2020 Increased Heart Rate Gluten Meal Diarrhea 11/13/2020 Cephalexin Vomiting Medium 11/13/2020 Medications No known medications Active Problems Problem Noted Date Diagnosed Date Pyelonephritis 11/13/2020 Celiac disease ([facility]) 02/22/2015 GERD without esophagitis 04/11/2010 Migraine 04/11/2010 Psoriasis 04/11/2010 Family History Medical History Relation Comments hypothyroidism Brother No Known Problems Father Heart Disease Maternal Grandfather Cancer Mother Relation Status Comments Brother Father Maternal Grandfather Mother Social History Tobacco Use Types Packs/Day Years [...] 37.1 ??C (98.7 ??F) 11/24/2020 9:36 AM CD T Respiratory Rate 18 11/24/2020 2:14 PM CDT Oxygen Saturation 100% 11/24/2020 2:14 PM CDT Inhaled Oxygen Concentration - - Weight 53.9 kg (118 lb 13.3 oz) 11/24/2020 9:36 AM CDT Height 152.4 cm (5') 11/24/2020 9:36 AM CDT Body Mass Index 23.21 11/24/2020 9:36 AM CDT Plan of Treatment Health Maintenance Due Date Last Done Comments Cervical Cancer Screening Pap Smear (Age 21 to 29) Every 3 Years 1995 Cervical Cancer Screening 1995 Annual Physical 11/28/1998 Hepatitis C 11/28/2013 DTaP, Tdap and Td Vaccines (7 - Td or Tdap) 10/31/2016 10/31/2006, 11/22/2000, 06/02/1997, Additional history exists COVID-19 Vaccine ( season) 2023 Influenza Adult (#1) 2024 02/20/2020, 04/10/2010, 02/19/2009, Additional history exists Hepatitis B Vaccines Completed 06/03/1996, 01/14/1996, 1995 HPV Vaccines Completed 10/13/2010, 05/30, 04/10/2010 Meningococcal Vaccine Aged Out No cata ladan eligible based on patient's age to complete this topic Pneumococcal Vaccine: Pediatrics (0 to 5 Years) and At-Risk Patients (6 to 64 Years) Aged Out No longer eligible based on patient's age to complete this topic RSV Immunizations Under 20 Months Aged Out No longer eligible based on patient's age to complete this topic Goals Goal Patient Goal Type Associated Problems Recent Progress Patient-Stated? Author Health - patient able to perform ADLs independently General No Carolann Zhou RN Insurance BLUE [employer] Advance Directives * Full Code (Latest Code Status on File) Date Activated Date Inactivated Comments 11/14/2020 12:25 AM 11/15/2020 1:32 PM Care Teams Wood Gluer Relationship Specialty Start Date End Date Jesus Avila MD [address] [place] [address] PCP - General FAMILY PRACTICE 11/24/20
--- OUTSIDE RECORDS SUMMARY | 2024-04-25 11:13 | XMS_ITS | Encounter Summary ---
Author Organization [facility] Address [address] [facility] [place], [place] [address] [place] [address] Care Team Providers Care Kraft Digester Operator Name Role Phone Jesus Avila MD Primary Care Provider [phone] Encounter Details Date Type Department Care Team (Latest Contact Info) Description 11/24/2020 Travel Social History Tobacco Use Types Packs/Day [...] as of this encounter Functional Status * RETIRED Are [...] AM CDT Teresa Ferreira RN Active documented as of this encounter Mental Status * Because of a physical, mental, or emotional condition, do you have serious difficulty concentrating, remembering, or making decisions? Answer Entry Date Author Status No 11/14/2020 12:39 AM CDT Teresa Ferreira RN Active documented in this encounter Plan of Treatment Not on file documented as of this encounter Goals Goal Patient Goal Type Associated Problems Recent Progress Patient-Stated? Author Health - patient able to perform ADLs independently General No Carolann Zhou RN documented as of this encounter Visit Diagnoses Not on filedocumented in this encounter Additional Health Concerns Infection Onset Date Last Indicated Resolved Time COVID-19 Rule Out 11/24/2020 11/24/2020 11/27/2020 8:36 AM CDT documented as of this encounter Care Teams Kraft Digester Operator Relationship Specialty Start Date End Date Jesus Avila MD [address] [place] [address] PCP - General FAMILY PRACTICE 11/24/20 documented as of this encounter
--- OUTSIDE RECORDS SUMMARY | 2024-04-25 11:13 | XMS_ITS | Encounter Summary ---
Author Organization [facility] Address [facility] [facility] [place] [address] [place] [address] Care Team Providers Care Laborer Ammunition Assembly Name Role Phone None, Provider Primary Care Provider Unavaila ble Reason for Visit * Reason Onset Date Comments Hospital Follow Up 11/16/2020 Encounter Details Date Type Department Care Team (Late st Contact Info) Description 11/16/2020 Telephone [facility] Med/Surg [address] [place] [address] Lucrecia Medeiros RN Hospital Follow Up Social History Tobacco Use Types Packs/Day Years [...] Ferreira RN Active documented in this encounter Progress Notes * Lucrecia Medeiros RN - 11/16/2020 9:52 AM CDT Patient doing well, no questions or concerns at this time. documented in this encounter Plan of Treatment Not on file documented as of this encounter Goals Goal Patient Goal Type Associated Problems Recent Progress Patient-Stated? Author Health - patient able to perform ADLs independently General No Carolann Zhou RN documented as of this encounter Visit Diagnoses Not on filedocumented in this encounter Care Teams Laborer Ammunition Assembly Relationship Specialty Start Date End Date None, Provider, PCP - General 11/13/20 11/23/20 documented as of this encounter
--- OUTSIDE RECORDS SUMMARY | 2024-04-25 11:14 | XMS_ITS | Encounter Summary ---
Author Organization [facility] Address Formerly [facility]. [place], [place] [address] [place] [address] Care Team Providers Care Human Resources Safety Manager Name Role Phone None, Provider Primary Care Provider Unavaila ble Encounter Details Date Type Department Care Team (Latest Contact Info) Description 11/13/2020 Travel Social History Tobacco Use Types Packs/Day [...] have Coronavirus / COVID-19? No / Unsure 11/13/2020 8:11 PM CDT documented as of this encounter Plan of Treatment Not on file documented as of this encounter Visit Diagnoses Not on filedocumented in this encounter Care Teams Human Resources Safety Manager Relationship Specialty Start Date End Date None, Provider, PCP - General 11/13/20 11/23/20 documented as of this encounter
--- OUTSIDE RECORDS SUMMARY | 2024-04-25 11:15 | XMS_ITS | Data Portability ---
Author Organization [place] [facility] and S, [facility] Address [address] [place] [address] [place] [address] Assessment No assessment recorded. Plan of Treatment Reminders Order Date Submit Date Provider Last Modified By Organization Details Last Modified Time Details Appointments None recorded. Lab urinalysis , dipstick 2018 [email or web address] [facility], [address], [place], [address], 16:30:32 Referral None recorded. Procedures None recorded. Surgeries None recorded. Imaging None recorded. Medication Orders Bactrim DS 800 mg-160 mg tablet 2018 INTERFACE [facility][id number], [address], [place], [place], [id number], 9 16:30:48 phenazopyr idine 200 mg tablet 2018 [facility]FACE [id number], [address], [place], [place], [id number], 9 16:30:48 Patient TargetsNo targets recorded. Patient InstructionsNo instructions recorded. Reason for Referral None Reported. Results Created Date Observation Date Name Description Value Unit Range Abnormal Flag Note LastModifiedBy Organization Detail LastModifiedTime 02/07/2019 urina lysis , dipst ick Leukocytes 2+ Not Available [facility] [address], [place], [address], 02/07/2019 16:25:51 02/07/2019 urina lysis , dipst ick Nitrite positi ve Not Available [facility] [address], [place], [address], 02/07/2019 16:25:51 02/07/2019 urina lysis , dipst ick Urobilinogen 0.2 Not Available [facility] [address], [place], [address], 02/07/2019 16:25:51 02/07/2019 urina lysis , dipst ick Protein Negati ve Not Available [facility] [address], [place], [address], 02/07/2019 16:25:51 02/07/2019 urina lysis , dipst ick pH 6.0 Not Available [facility] [address], [place], [address], 02/07/2019 16:25:51 02/07/2019 urina lysis , dipst ick Blood 1+ Not Available [facility] [address], [place], [address], 02/07/2019 16:25:51 02/07/2019 urina lysis , dipst ick Specific [place] 1.025 Not Available [facility] [address], [place], [address], 02/07/2019 16:25:51 02/07/2019 urina lysis , dipst ick Ketone 1+ Not Available [facility] [address] [facility] [address], [place], [address], 02/07/2019 16:25:51 02/07/2019 urina lysis , dipst ick Bilirubin Negati ve Not Available [facility] [address] [facility] [address], [place], [address], 02/07/2019 16:25:51 02/07/2019 urina lysis , dipst ick Glucose Negati ve Not Available [facility] [address], [place], [address], 02/07/2019 16:25:51 02/07/2019 urina lysis , dipst ick Appearance Turbid Not Available [facility] [address], [place], [address], 02/07/2019 16:25:51 02/07/2019 urina lysis , dipst ick Color Dark Yellow Not Available [facility] [address], [place], [address], 02/07/2019 16:25:51 Result Notes None recorded. Problems Name Problem SNOMED Code Status Onset Date Resolution Date Notes Provider Name and Address Organization Details Recorded Time Acute urinary tract infection 912393405 Active 019 Laurent Dye EMBEDDED SOFTWARE ARCHITECT-[facility] and 9 16:28:08 Problem Notes None recorded. Medical Equipment None Reported. Allergies Allergen ID Allergen Name Allergen Category Reaction Reaction Severity Criticality Documentation Date Start Date Code Code System Note Provider Name and Address Organization Details Recorded Time [id number] chlorphen iramine / dextromet horphan / phenyleph rine medicatio n Not available Not available Not available 02/07/2019 80586 9 RxNorm Not Available Not Available Not Available Medications Name Sig Start Date Stop Date Status Note LastModified by Organization Details LastModified Time phenazopyridin e 200 mg tablet Take 1 tablet 3 times a day by oral route as directed for 2 days. 2018 active Not Available Not Available Not Avai lable Bactrim DS 800 mg-160 mg tablet Take 1 tablet every 12 hours by oral route as directed for 10 days. 2018 active Not Available Not Available Not Avai lable Vitals Date Recorded Heart rate Body temperature Body weight Body height Body mass index (BMI) Oxygen saturation Oxygen saturation in Arterial blood by Pulse oximetry Systolic blood pressure Diastolic blood pressure Provider Name and Address Organization Details Last Updated DateTime 9 91 /min 97.7 [degF] 79481.8 6 g 152.4 cm 29.3 kg/m2 96 % 96 % 128 mm[Hg] 86 mm[Hg] Rebecca Karen [facility] and S 9 16:25:26 Social History None recorded. Functional Status None recorded. Mental Status None recorded. Family History Nothing Reported. Medical History No medical history recorded. Gynecological HistoryNo gynecological history recorded. Obstetrics History GPAL:G 0 P 0 0 0 0 Past Encounters Encounter ID Performer Location Encounter Start Date Encounter Closed Date Diagnosis/Indication Diagnosis SNOMED-CT Code Diagnosis ICD10 Code [id number] Laurent BURDEN-C [facility] [address] [place] [address] 02/07/2019 16:13:18 02/07/2019 16:48:34 Acute urinary tract infection 163607991 N39.0 Health Concerns Section Related Observation LastModified by Organization Detai ls LastModified Time None Recorded Concern Status LastModified by Organization Details LastModified Time None Recorded Advance Directives Directive None Recorded Payers Encounter Date Sequence Insurance Name Policy Number Policy Lange Covered Member ID Lange Member ID Guarantor Name 02/07/2019 2 [employer] - [employer] ( SUPPLEMENT) Jamari Bravo [id number] Brandy Bravo 02/07/2019 1 [facility] [employer] - [employer] Jamari Bravo [id number] Brandy Bravo Notes Date Note Type Note Provider Name and Address Organization Details Recorded Time 02/07/2019 text/html 23/f here with c/o dysuria, frequency, urgency, and suprapubic tenderness x4 days. Denies c/f/n/v/d. Laurent BURDEN-C [facility], [place] [facility] and S 02/07/2019 16:31:25 OBGyn Episode No OBEpisode recorded.
== END 2024-04-18 09:15 | disposition home or self-care (01) ==
LOC: ANHLAB 09:15
PROVIDERS: PCP Family Medicine; Visit Provider Obstetrics & Gynecology
DX: Z78.9 Other specified health status (principal)
CPT/HCPCS: 36415; 84144

== ENCOUNTER 2024-05-12 19:23 | Emergency (ER) | payer OTHER, SELFPAY ==
--- NOTE | ~2024-05-12 | US_ITS ---
EXAMINATION: US OB <=14 wk fetus w TV DATE: 05/12/2024 21:29 RAILWAY TRACK WORKER INDICATION: Pelvic pain COMPARISON: None TECHNIQUE: Real-time transabdominal and transvaginal obstetric ultrasound. FINDINGS: 2 para 1 Estimated date of delivery by last menstrual period is 01/03/2025 The uterus measures 7.45, 4.2 0.7, 0.2cm. A gestational sac is identified within the uterus. A yolk sac is identified measuring 4.2 mm in greatest dimension. A pole is identified, with a crown-rump length that measures 0.43 cm, corresponding to an appro ximate gestational age of 6 weeks and 1 day. cardiac activity is identified at a rate of 127 -130 bpm. The right ovary measures 3.7 x 1.8 x 1.4 cm. The left ovary measures 3.9 x 2.1 x 2.5 cm. Estimated date of delivery by ultrasound is 01/04/2025 IMPRESSION: Single intrauterine gestation with an approximate gestational age of 6 weeks and 1 day, with ca rdiac activity identified. Reviewed, dictated and finalized at location A. WAY TRACK WORKER IMPRESSION: Single intrauterine gestation with an approximate gestational age of 6 weeks an d 1 day, with cardiac activity identified.
[2024-05-12 19:31] VITALS: BP 144/78; PULSE 109; RESP 16; TEMP 36.6; O2SAT 100
[2024-05-12 22:43] LABS: Basophils Percent Auto 0.2 % (0.2-1.2); Eosinophils Absolute Auto 0.1 K/mm3 (0-0.3); Eosinophils Percent Auto 0.5 % (0-4.4); Hematocrit 39.2 % (37.0-47.0); Hemoglobin 13.4 g/dL (12.0-15.0); Immature Granulocyte Absolute 0.07 K/mm3 (0.00-0.031); Immature Granulocyte Percent A 0.5 % (0-0.5); Lymphocytes Absolute Auto 2.03 K/mm3 (0.9-3.2); Lymphocytes Percent Auto 14.4 % (18.3-44.2); Mean Corpuscular HGB Conc 34.2 g/dl (32-36); Mean Corpuscular Hemoglobin 30.3 pg (26-34); Mean Corpuscular Volume 88.7 fl (80-100); Mean Platelet Volume 11.6 fl (7.4-10.4); Monocytes Absolute Auto 0.8 K/mm3 (0.1-0.6); Monocytes Percent Auto 5.3 % (2.6-8.5); Neutrophils Absolute Auto 11.2 K/mm3 (1.3-6.7); Neutrophils Percent Auto 79.1 % (45.5-73.1); Platelet Count Result 253 k/mm3 (150-375); Red Blood Count 4.42 M/mm3 (4.2-5.4); Red Cell Distribution Width 12.6 % (11.5-14.5); White Blood Count 14.1 K/mm3 (4.5-10.0)
[2024-05-12 22:44] LABS: Add Urine Microscopic? NO; Appearance Urine Clear (Clear); Bilirubin Urine Negative (Negative); Blood Urine Negative (Negative); Color Urine Yellow (Yellow); Glucose Urine UA Negative (Negative); Ketones Urine Trace mg/dL (Negative); Leukocyte Esterase Ur Negative LEU/UL (Negative); Nitrate Urine Negative (Negative); Protein Urine Negative (Negative); Specific Grav Ur 1.008 (1.001-1.035); Urobilinogen Urine 0.2 mg/dL (<2.0); pH Urine 6.5 (5.0-9.0)
--- NOTE | 2024-05-12 22:51 | ED_ITS ---
HPI - Abdominal Pain General Chief Complaint: Abdominal Pain Stated Complaint: pelvic pain, 6w Time Seen by Provider: 05/12/24 22:00 Source: patient Mode of arrival: ambulatory Limitations: no limitations History of Present Illness HPI narrative: Patient is a 28-year-old female who presents the ED with report of pelvic pain. Patient reports around 530pm, she developed pain in her pelvic region. States it was a sharp stabbing pain, described similar to lightening crotch. She went downstairs and attempted to eat, but states pain began radiating into her R lower abdomen/periumbilical region. States pain lasted for approximately 45 minutes before resolving on its own. She then prompted here for further evaluation. Denies current pain. She is currently 6 weeks , . OBGYN is Dr. Hinkle. She has not had an ultrasound yet for this . Denies any vaginal bleeding. Related Data Home Medications ?Medication ?Instructions ?Recorded ?Confirmed ?Last Taken ?Type docosahexaenoic acid 200 mg mg PO 04/13/24 04/13/24 Unknown History capsule ( DHA) elderberry fruit 350 mg capsule mg PO 04/13/24 04/13/24 Unknown History ferrous sulfate 325 mg (65 mg 325 mg PO DAILY 04/13/24 04/13/24 Unknown History iron) tablet (FeroSul) Allergies Allergy/AdvReac Type Severity Reaction Status Date / Time cephalexin (From Keflex) AdvReac Intermediate Vomiting Verified 05/12/24 19:25 gluten AdvReac Intermediate Gastrointestinal Verified 05/12/24 19:25 Upset prochlorperazine (From AdvReac Intermediate Palpitation Verified 05/12/24 19:25 Compazine) s chlorpheniramine (From AdvReac Mild Hives Verified 05/12/24 19:25 Donatussin) ciprofloxacin (From Cipro) AdvReac Mild Hives Verified 05/12/24 19:25 dextromethorphan (From AdvReac Mild Hives Verified 05/12/24 19:25 Donatussin) phenylephrine (From AdvReac Mild Hives Verified 05/12/24 19:25 Donatussin) Review of Systems 2 Review of Systems: All systems reviewed & are unremarkable except as noted in HPI. All systems reviewed & are unremarkable except as noted in HPI and below PMFSH Past Medical History Medical History Costochondritis Fibromyalgia Psoriasis Acute arthritis Anxiety Low ferritin level Arthralgia BMI 25.0-25.9,adult Eustachian tube dysfunction BMI 26.0-26.9,adult Hx of psoriatic arthritis BMI 24.0-24.9, adult BMI 22.0-22.9, adult Celiac disease Surgical History Surgical History H/O endoscopy Hx of cholecystectomy Family History Family History Father Hypertension Diabetes mellitus Obesity Mother Depression Thyroid cancer Thyroid disorder Sibling Thyroid disorder COVID-19 Hypertension Social History Social History Smoking status: Never smoker Second hand tobacco smoke exposure: No Alcohol intake: never Substance use: never Substance use type: does not use Do You Feel Safe in your Home?: Yes Lack of Transportation: No Lack of Food: Never True Current Housing: I Have Housing Concerned About Future Housing: No Difficulty Paying Gas/Electric Bills: No Difficulty Paying for Meds: No Currently Unemployed: No Education: Bachelor's Degree Difficulty w/ Childcare or Family Care: No Living arrangements: with family Occupation/Education: occupation 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 HEAD: Normocephalic, atraumatic. RESPIRATORY: Airway patent, respirations nonlabored. Clear to auscultation bilaterally, no rales, rhonchi, wheezing. CARDIOVASCULAR: Regular rate and rhythm without murmurs, rubs, or gallops. ABDOMINAL: Soft, no tenderness throughout abdomen, nondistended. Normoactive BS. MUSCULOSKELETAL: Moves all extremities. No gross deformities. SKIN: Warm, dry, normal color. NEURO: A&O X3. Speech clear. PSYCHIATRIC: Appropriate mood and affect. Normal interaction. Course Vital Signs Vital signs: Vital Signs Temperature 97.9 F 05/12/24 19:31 Pulse Rate 109 H 05/12/24 19:31 Respiratory Rate 16 01/14/25 19:31 Blood Pressure 144/78 H 05/12/24 19:31 Pulse Oximetry 100 05/12/24 19:31 Oxygen Delivery Room Air 05/12/24 19:31 Temperature 97.9 F 05/12/24 19:31 Pulse Rate 109 H 05/12/24 19:31 Respiratory Rate 16 05/12/24 19:31 Blood Pressure 144/78 H 05/12/24 19:31 Pulse Oximetry 100 05/12/24 19:31 Oxygen Delivery Room Air 05/12/24 19:31 MDM - Abdominal Pain MDM Narrative Medical decision making narrative: Patient presented to ED with 45 minute episode of pelvic and right lower abdominal pain. Currently 6 weeks gestation. Has not been seen yet for this . Vital signs are stable upon arrival. Patient is in no acute distress. Denies in the current pain upon my evaluation. States pain resolved on its own. Ob ultrasound was obtained and reassuring, showing live IUP, 6 weeks 1 day, good heart tones. No other abnormalities noted with ovaries or gestational sac. Laboratory studies show mild white blood cell count of 14.1. Patient is denying infectious symptoms. CMP is unremarkable. Urinalysis is clear. Beta hCG is appropriately elevated. Discussed lab and imaging findings with patient. She continues to deny any pain. No bleeding. Resting comfortably. She does not have any focal right lower quadrant tenderness on exam to suggest other surgical process like appendicitis. I have very low suspicion for this. There is no nausea or vomiting, no fevers. Recommended close follow-up with OBGYN and for continued management of . Patient is in agreement with this plan and feels comfortable with discharge home. Discussed return precautions. Discharged in stable condition. Medical Records Attestation: I reviewed the patient's medical records. Lab Data Attestation: I reviewed the patient's lab results. 05/12/24 22:35 05/12/24 22:35 Labs: Lab Results 05/12/24 Range/Units 22:35 WBC 14.1 H (4.5-10.0) K/mm3 RBC 4.42 (4.2-5.4) M/mm3 Hgb 13.4 (12.0-15.0) g/dL Hct 39.2 (37.0-47.0) % MCV 88.7 (80-100) fl MCH 30.3 (26-34) pg MCHC 34.2 (32-36) g/dl RDW 12.6 (11.5-14.5) % Plt Count 253 (150-375) k/mm3 MPV 11.6 H (7.4-10.4) fl Immature Gran % (Auto) 0.5 (0-0.5) % Neut % (Auto) 79.1 H (45.5-73.1) % Lymph % (Auto) 14.4 L (18.3-44.2) % [place] % (Auto) 5.3 (2.6-8.5) % Eos % (Auto) 0.5 (0-4.4) % Baso % (Auto) 0.2 (0.2-1.2) % Lymph # (Auto) 2.03 (0.9-3.2) K/mm3 [place] # (Auto) 0.8 H (0.1-0.6) K/mm3 Eos # (Auto) 0.1 (0-0.3) K/mm3 Baso # (Auto) 0.0 (0.0-0.1) K/mm3 Abs Immat Gran (auto) 0.07 H (0.00-0.031) K/mm3 Absolute Neuts (auto) 11.2 H (1.3-6.7) K/mm3 Absolute Nucleated RBC 0.000 (0.0-0.012) K/mm3 Nucleated RBC % 0.0 (0.0-0.2) % PT 13.5 (11.1-14.7) Seconds INR 1.0 APTT 27.3 (22.3-36.8) Seconds Sodium 136 L (137-145) mmol/L Potassium 3.4 (3.4-5.0) mmol/L Chloride 105 (98-107) mmol/L Carbon Dioxide 20 L (22-30) mmol/L Anion Gap 11 (4-12) mmol/L BUN 13 (7-17) mg/dL Creatinine 0.65 L (0.7-1.0) mg/dL Estim Creat Clear Calc 94 ml/min Estimated GFR > 60 (59 - ) Glucose 103 (65-110) mg/dL Calcium 9.6 (8.4-10.2) mg/dL Total Bilirubin 0.5 (0.2-1.3) mg/dL AST 27 (14-36) U/L ALT 27 (6-35) U/L Alkaline Phosphatase 53 (38-126) U/L Total Protein 8.0 (6.3-8.2) g/dL Albumin 4.6 (3.5-5.1) g/dL Beta HCG, Quant > 04563.00 mIU/ML Urine Color Yellow (Yellow) Urine Appearance Clear (Clear) Urine pH 6.5 (5.0-9.0) Ur Specific [place] 1.008 (1.001-1.035) Urine Protein Negative (Negative) mg/dL Urine Glucose (UA) Negative (Negative) mg/dL Urine Ketones Trace H (Negative) mg/dL Ur Blood (Man) Negative (Negative) Urine Nitrate Negative (Negative) Urine Bilirubin Negative (Negative) Urine Urobilinogen 0.2 (<2.0) mg/dL Leukocyte Esterase Rfl Negative (Negative) DIAZ/UL Blood Type Pending Antibody Screen Pending Screen TNP Baby's Blood Type Not Reportable Baby's WILBERT Not Reportable Doses of RhIg Required Pending Imaging Data Attestation: I personally reviewed and interpreted this imaging study as follows: Radiologist's impression: ITS Impressions Obstetrics Ultrasound 05/12/24 21:28 IMPRESSION: Single intrauterine gestation with an approximate gestational age of 6 weeks and 1 day, with cardiac activity identified. Discharge Plan Discharge Clinical Impression: Pelvic pain in , 6 weeks gestation of Patient Disposition: Home, Self-Care Condition: Stable Instructions: Antibiotic Form, Pelvic Pain in Women (ED), at 7 to 10 Weeks (ED) Additional Instructions: Your workup here was reassuring. Stay well hydrated at home. Continue to follow- up with OBGYN for further evaluation. Return to the ED if you experience worsening or severe pain, vaginal bleeding, unable to keep down food or drink, persistent fevers, or any other symptoms of concern. Patient Language: Bermudian Prescriptions: No Action ferrous sulfate [FeroSul] 325 mg (65 mg iron) tablet 325 mg PO DAILY elderberry fruit 350 mg capsule PO DHA 200 mg capsule PO buspirone 10 mg tablet 10 mg PO BID Qty: 60 3RF Follow-up/Referrals: Whitney Hinkle MD [Physician] - (OBGYN) Jesus Avila MD [Primary Care Provider] - Time of Disposition: 23:32
[2024-05-12 22:54] LABS: Prothrombin Time 13.5 Seconds (11.1-14.7)
[2024-05-12 22:55] LABS: Partial Thromboplastin Time 27.3 Seconds (22.3-36.8)
[2024-05-12 23:12] LABS: Alanine Aminotransferase 27 U/L (6-35); Albumin Level 4.6 g/dL (3.5-5.1); Alkaline Phosphatase 53 U/L (38-126); Anion Gap 11 mmol/L (4-12); Aspartate Amino Transferase 27 U/L (14-36); Bilirubin,Total 0.5 mg/dL (0.2-1.3); Blood Urea Nitrogen 13 mg/dL (7-17); Calcium 9.6 mg/dL (8.4-10.2); Carbon Dioxide 20 mmol/L (22-30); Chloride 105 mmol/L (98-107); Estimated CRCL calculation 94 ml/min; Estimated Glomerular Filt Rate > 60; Glucose 103 mg/dL (65-110); Potassium 3.4 mmol/L (3.4-5.0); Sodium 136 mmol/L (137-145)
== END 2024-05-12 23:46 | disposition home or self-care (01) ==
PROVIDERS: Emergency Provider Physician Assistant; PCP Family Medicine
DX: R10.2 Pelvic and perineal pain (principal); O26.891 Other specified pregnancy related conditions, first trimester; Z3A.01 Less than 8 weeks gestation of pregnancy
CPT/HCPCS: 36415; 76801; 76817; 80053; 81003; 84702; 85025; 85461; 85610; 85730; 86850; 86900; 86901; 99284

== ENCOUNTER 2024-05-30 08:58 | Outpatient (CLI) | payer OTHER, SELFPAY ==
--- OUTSIDE RECORDS SUMMARY | 2024-05-30 09:01 | XMS_ITS | Referral Summary ---
Author Organization [facility] Address [address] [place] [address] Care Team Providers Care Filtration Plant Mechanic Name Role Phone Jesus Avila MD Primary Care Provider [phone] [facility],non-owned Affiliates and Associated Physician Practices is amultiple site organization consisting of ambulatory clinics and hospital sitesin [place], [place], [place] and [place]. This disclosure is being madepursuant to the Care Everywhere program and may not contain all information available regarding this patient. Last updated 18.[facility] Allergies Active Allergy Reactions Criticality Noted Date [...] Papilloma Virus Quiana valent Vaccine 10/13/2010,06/13/2010,04/10/2010 INFLUENZA VACCINE 02/19/2009, 8,02/14/2008,2006 MENINGOCOCAL MENINGITIS 11/25/2007 MMR 11/22/2000,03/23/1997 [...] Comments Blood Pressure 127/80 07/05/2022 10:56 AM COMBINATION PRESSER Pulse 93 07/05/2022 10:56 AM COMBINATION PRESSER Temperature 37 ??C (98.6 ??F) 07/05/2022 10:56 AM COMBINATION PRESSER Respiratory Rate 18 07/05/2022 10:56 AM COMBINATION PRESSER Oxygen Saturation 100% 07/05/2022 10:56 AM COMBINATION PRESSER Inhaled Oxygen Concentration - - Weight 68.9 kg (152 lb) 07/05/2022 10:56 AM COMBINATION PRESSER Height 152.4 cm (5') 07/05/2022 10:56 AM COMBINATION PRESSER Body Mass Index 29.69 07/05/2022 10:56 AM COMBINATION PRESSER Plan of Treatment Not on file Administered Medications Care Teams Filtration Plant Mechanic Relationship Specialty Start Date End Date Jesus Avila MD [address] [place] [address] PCP - General 07/05/22
--- OUTSIDE RECORDS SUMMARY | 2024-05-30 09:01 | XMS_ITS | Clinical Summary ---
Author Organization [facility] Address [address] [place] [address] Care Team Providers Care Sandwich Peddler Name Role Phone Jesus Avila MD Primary Care Provider [phone] Source Comments [facility],non-owned Affiliates and Associated Physician Practices is amultiple site organization consisting of ambulatory clinics and hospital sitesin [place], [place], [place] and [place]. This disclosure is being madepursuant to the Care Everywhere program and may not contain all information available regarding this patient. Last updated 18.[facility] Allergies Active Allergy Reactions Criticality [...] Comments Blood Pressure 127/80 07/05/2022 10:56 AM HYDRAULIC TESTER Pulse 93 07/05/2022 10:56 AM HYDRAULIC TESTER Temperature 37 ??C (98.6 ??F) 07/05/2022 10:56 AM HYDRAULIC TESTER Respiratory Rate 18 07/05/2022 10:56 AM HYDRAULIC TESTER Oxygen Saturation 100% 07/05/2022 10:56 AM HYDRAULIC TESTER Inhaled Oxygen Concentration - - Weight 68.9 kg (152 lb) 07/05/2022 10:56 AM HYDRAULIC TESTER Height 152.4 cm (5') 07/05/2022 10:56 AM HYDRAULIC TESTER Body Mass Index 29.69 07/05/2022 10:56 AM HYDRAULIC TESTER Plan of Treatment Health Maintenance Due Date Last Done Comments PAP SMEAR 1995 HIV SCREENING 11/28/2010 HEPATITIS C SCREENING 11/24/2013 DTAP/TDAP/TD VACCINES (7 - Td or Tdap) 10/31/2016 10/31/2006, 11/22/2000, 06/02/1997, Additional history exists COVID-19 VACCINE ( season) 2023 12/23/2020, 12/02/2020 INFLUENZA VACCINE (#1) 2023 , 02/20/2020, 01/25/2013, Additional history exists DEPRESSION SCREENING 04/29/2024 ZOSTER VACCINE (1 of 2) 11/28/2045 HEPATITIS B VACCINE Completed 06/03/1996, 01/14/1996, 1995 HIB VACCINE Completed 06/02/1997, 08/1996, 03/17/1996, Additional history exists MENINGOCOCCAL VACCINE Aged Out 11/25/2007 No cata ladan eligible based on patient's age to complete this topic HPV VACCINE Completed 10/13/2010, 05/30, 04/10/2010 MENINGOCOCCAL (Group B) VACCINE Aged Out No longer eligible based on patient's age to complete this topic PNEUMOCOCCAL VACCINE Aged Out No long er eligible based on patient's age to complete this topic Care Teams Sandwich Peddler Relationship Specialty Start Date End Date Jesus Avila MD [address] [place] [address] PCP - General 07/05/22
--- OUTSIDE RECORDS SUMMARY | 2024-05-30 09:01 | XMS_ITS | Clinical Summary ---
Author Organization [facility] Address [facility] [facility] [place], [place] [address] [place] [id number] Care Team Providers Care Sports Equipment Racker Name Role Phone Jesus Avila MD Primary Care Provider [phone] Allergies Active Allergy Reactions Criticality Noted Date Comments Buumpcvpzzhxp-Wsmutsjzu-Yo Hives Prochlorperazine Other (see comment) 11/14/2020 Increased Heart Rate Gluten Meal Diarrhea 11/13/2020 Cephalexin Vomiting Medium 11/13/2020 Medications No known medications Active Problems Problem Noted Date Diagnosed Date Pyelonephritis 11/13/2020 Celiac disease ([facility]/HCC) 02/22/2015 GERD without esophagitis 04/11/2010 Migraine 04/11/2010 [...] HPV Vaccines Completed 10/13/2010, 05/30, 04/10/2010 Meningococcal B Vaccine Aged Out No l onger eligible based on patient's age to complete this topic Meningococcal Vaccine Aged Out No cata ladan [...] to perform ADLs independently General No Carolann Zhou, RN Insurance Advance Directives * Full Code (Latest Code Status on File) Date Activated Date Inactivated Comments 11/14/2020 12:25 AM 11/15/2020 1:32 PM Care Teams Sports Equipment Racker Relationship Specialty Start Date End Date Jesus Avila MD [address] [address] PCP - General FAMILY PRACTICE 11/24/20
--- OUTSIDE RECORDS SUMMARY | 2024-05-30 09:01 | XMS_ITS | Encounter Summary ---
Author Organization [facility] Address [address] [place] [address] Care Team Providers Care Cotton Machine Operator Name Role Phone Jesus Avila MD Primary Care Provider [phone] Encounter Details Date Type Department Care Team (Late st Contact Info) Description 02/26/2013 [facility] Outpatient Visit CG DEFAULT [address] [place] [place] [address] Unknown, Provider Social History Tobacco Use Types [...] on filedocumented in this encounter Care Teams Cotton Machine Operator Relationship Specialty Start Date End Date Jesus Avila MD [address] [place] [address] PCP - General 07/05/22 documented as of this encounter
--- OUTSIDE RECORDS SUMMARY | 2024-05-30 09:01 | XMS_ITS | Data Portability ---
Author Organization [place] - [facility] and S, [facility] Address [address] [place] [address] [place] [address] Assessment No assessment recorded. Plan of Treatment Reminders Order Date Submit Date Provider Last Modified By Organization Details Last Modified Time Details Appointments None recorded. Lab urinalysis , dipstick 2018 [email or web address] [facility], [address] [facility] [address], [place], [address], 16:30:32 Referral None recorded. Procedures None recorded. Surgeries None recorded. Imaging None recorded. Medication Orders Bactrim DS 800 mg-160 mg tablet 2018 INTERFACE [id number], [address] [facility] [address] [facility], [place], [place], [phone], 9 16:30:48 phenazopyr idine 200 mg tablet 2018 INTERFACE [id number], [address] [facility], [place], [place], [phone], 9 16:30:48 Patient TargetsNo targets recorded. Patient InstructionsNo instructions recorded. Reason for Referral None Reported. Results Created Date Observation Date Name Description Value Unit Range Abnormal Flag Note LastModifiedBy Organization Detail LastModifiedTime 02/08/2002/07/2019 urina lysis , dipst ick Leukocytes 2+ Not Available [facility] [address] [facility], [place], [address], 02/07/2019 16:25:51 02/08/20 19 02/07/2019 urina lysis , dipst ick Nitrite positi ve Not Available [facility] [address], [place], [address], 02/07/2019 16:25:51 02/08/20 19 02/07/2019 urina lysis , dipst ick Urobilinogen 0.2 Not Available [facility] [address] [place] [address] [place], [place], [address], 02/07/2019 16:25:51 02/08/20 19 02/07/2019 urina lysis , dipst ick Protein Negati ve Not Available [facility] [address] [place] [address] [place], [place], [address], 02/07/2019 16:25:51 02/08/2002/07/2019 urina lysis , dipst ick pH 6.0 Not Available [facility] [address] [place] [address] [place], [place], [address], 02/07/2019 16:25:51 02/08/20 19 02/07/2019 urina lysis , dipst ick Blood 1+ Not Available [facility] [address] [place] [address] [place], [place], [address], 02/07/2019 16:25:51 02/08/20 19 02/07/2019 urina lysis , dipst ick Specific Mallard 1.025 Not Available [facility] [address] [place] [address] [place], [place], [address], 02/07/2019 16:25:51 02/08/20 19 02/07/2019 urina lysis , dipst ick Ketone 1+ Not Available [facility] [address] [place] [address] [place], [place], [address], 02/07/2019 16:25:51 02/08/20 19 02/07/2019 urina lysis , dipst ick Bilirubin Negati ve Not Available [facility] [address] [facility], [place], [address], 02/07/2019 16:25:51 02/08/20 19 02/07/2019 urina lysis , dipst ick Glucose Negati ve Not Available [facility] [address] [place] [address], [place], [address], 02/07/2019 16:25:51 02/08/20 19 02/07/2019 urina lysis , dipst ick Appearance Turbid Not Available [facility] [address] [place] [address], [place], [address], 02/07/2019 16:25:51 02/08/20 19 02/07/2019 urina lysis , dipst ick Color Dark Yellow Not Available [facility] [address] [place] [address], [place], [address], 02/07/2019 16:25:51 Result Notes None recorded. Problems Name Problem SNOMED Code Status Onset Date Resolution Date Notes Provider Name and Address Organization Details Recorded Time Acute urinary tract infection 923257691 Active 019 Laurent Dye LAUNDRY PRESSER-C [place], [place] - [facility] and S 9 16:28:08 Problem Notes None recorded. Medical Equipment None Reported. Allergies Allergen ID Allergen Name Allergen Category Reaction Reaction Severity Criticality Documentation Date Start Date Code Code System Note Provider Name and Address Organization Details Recorded Time 9373 chlorphen iramine / dextromet horphan / phenyleph rine medicatio n Not available Not available Not available 02/07/2019 96486 9 RxNorm Not Available Not Available Not [...] Updated DateTime 9 91 /min 97.7 [degF] 58260.8 6 g 152.4 cm 29.3 kg/m2 96 % 96 % 128 mm[Hg] 86 mm[Hg] Rebecca Karen [facility] and S 9 16:25:26 Social History None recorded. Functional Status None recorded. Mental Status None recorded. Family History Nothing Reported. Medical History No medical history recorded. Gynecological HistoryNo gynecological history recorded. Obstetrics History GPAL:G 0 P 0 0 0 0 Past Encounters Encounter ID Performer Location Encounter Start Date Encounter Closed Date Diagnosis/Indication Diagnosis SNOMED-CT Code Diagnosis ICD10 Code Diagnosis Note [id number] Laurent MELENDEZ [facility] [address] [place] [address] 02/07/2019 16:13:18 02/07/2019 16:48:34 Acute urinary tract infection 486962631 N39.0 Health Concerns Section Related Observation LastModified by Organization Detai ls LastModified Time None Recorded Concern Status LastModified by Organization Details LastModified Time None Recorded Advance Directives Directive None Recorded Payers Encounter Date Sequence Insurance Name Policy Number Policy Lange Covered Member ID Lange Member ID Guarantor Name 02/07/2019 2 [employer] - [employer] ( SUPPLEMENT) Jamari Bravo [id number] Brandy Bravo 02/07/2019 1 [facility] () Jamari Bravo [id number] Brandy Bravo Notes Date Note Type Note Provider Name and Address Organization Details Recorded Time 02/07/2019 text/html 23/f here with c/o dysuria, frequency, urgency, and suprapubic tenderness x4 days. Denies c/f/n/v/d. Laurent BURDEN-Celestino [facility] and S 02/07/2019 16:31:25 OBGyn Episode No OBEpisode recorded.
--- OUTSIDE RECORDS SUMMARY | 2024-05-30 09:01 | XMS_ITS | Patient Health Summary ---
Author Organization [facility] Address [address] [place] [address] Care Team Providers Care Stroboscope Operator Name Role Phone Jesus Avila MD Primary Care Provider [phone] Note from [facility],non-owned Affiliates and Associated Physician Practices is amultiple site organization consisting of ambulatory clinics and hospital sitesin [place], [place], [place] and [place]. This disclosure is being madepursuant to the Care Everywhere program and may not contain all information available regarding this patient. Last updated 18.[facility] Allergies * Donatussin(Urticaria) * Fish Allergy(Rash,Swelling) -Medium [...] Virus Quadrivalent Vaccine(Given 10/13/2010, 06/13/2010, 04/10/2010) * INFLUENZA VACCINE(Given 02/19/2009, 02/28/2008, 02/14/2008, 03/01/2007) * MENINGOCOCAL MENINGITIS(Given [...] Comments Blood Pressure 127/80 07/05/2022 10:56 AM ACQUISITION PROFESSIONAL Pulse 93 07/05/2022 10:56 AM ACQUISITION PROFESSIONAL Temperature 37 ??C (98.6 ??F) 07/05/2022 10:56 AM ACQUISITION PROFESSIONAL Respiratory Rate 18 07/05/2022 10:56 AM ACQUISITION PROFESSIONAL Oxygen Saturation 100% 07/05/2022 10:56 AM ACQUISITION PROFESSIONAL Inhaled Oxygen Concentration - - Weight 68.9 kg (152 lb) 07/05/2022 10:56 AM ACQUISITION PROFESSIONAL Height 152.4 cm (5') 07/05/2022 10:56 AM ACQUISITION PROFESSIONAL Body Mass Index 29.69 07/05/2022 10:56 AM ACQUISITION PROFESSIONAL Procedures * PATHOLOGY/CYTOLOGY REPORT ORDER(Performed 07/05/2022) * [...] Unknown 09/27/2018 12:34 PM CDT Derian Rush GUIDE 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 Clarity UA POCT clear Color UA POCT yellow Leukocyte UA 2+ Negative Nitrite UA POCT + Negative Urobilinogen UA 0.0(A) 0.1 - 1.0 Protein UA POCT 0.1 Negative pH UA 5.0 5.0 - 8.0 pH units Blood UA 250 Negative Specific [place] UA POCT 1.020 1.002 - 1.030 Ketone [...] HANDS BILATERAL 2 VIEWS (06/21/2015 4:04 PM ACQUISITION PROFESSIONAL) Anatomical Region Laterality Modality Wrist / Hand, Upper Extremity Ra diographic Imaging 06/21/2015 4:08 PM ACQUISITION PROFESSIONAL Narrative 06/21/2015 4:56 PM ACQUISITION PROFESSIONAL BILATERAL HANDS, TWO VIEW History: Psoriatic arthritis. [...] ONE OR TWO VIEWS (06/21/2015 4:04 PM ACQUISITION PROFESSIONAL) Anatomical Region Laterality Modality Lower Extremity Radiographic Ashley ging 06/21/2015 4:07 PM ACQUISITION PROFESSIONAL Addenda Addendum by Tal Garner MD on 06/22/2015 11:14 AM ACQUISITION PROFESSIONAL TO X-RAY REPORT The examination was bilateral knees, four view. The osseous structures are normal. There is no evidence of fracture or dislocation. No joint effusion is present. There is no joint space narrowing or erosions. DIAGNOSIS: Normal examination. Edited by Abel Pack on 06/22/2015 10:51 AM Narrative 06/21/2015 4:08 PM ACQUISITION PROFESSIONAL Left knee, 3 view History: Pain There is no evidence of fracture or dislocation or joint effusion Procedure Note Tal Garner MD - 06/21/2015 Left knee, 3 view History: Pain There is no evidence of fracture or dislocation or joint effusion Vero Valverde MD DIAGNOSTIC IMAGING O RDERABLES * HEMOGLOBIN A1C (HgbA1C) (06/14/2015 2:15 PM ACQUISITION PROFESSIONAL) Hemoglobin A1c 5.3 4.8 - 5.6 % [facility] INSURANCE BILL Comment: ? . ? Pre-diabetes: 5.7 - 6.4 ? Diabetes: >6.4 ? Glycemic control for adults with diabetes: <7.0 Whole blood specimen (specimen) BLOOD SPECIMEN WITH EDTA / Unknown 06/14/2015 2:15 PM ACQUISITION PROFESSIONAL 06/14/2015 4:11 PM ACQUISITION PROFESSIONAL Narrative Resulting Agency Comment [facility] [place] [address] ??[facility] [phone] Angie Sung MD LAB - CHEMISTRY LIZZY LEPE [facility] INSURANCE BILL * VAGINITIS PLUS (BV CA CT NG TRICH) (PO REF) (06/14/2015 2:05 PM ACQUISITION PROFESSIONAL) Atopobium vaginae Low - 0 Score LA [...] ENTIRE VAGINA / Unknown 06/14/2015 2:05 PM ACQUISITION PROFESSIONAL 06/14/2015 9:03 PM ACQUISITION PROFESSIONAL Narrative Resulting Agency Comment [facility] [address] ??[facility] [phone] Angie Sung MD LAB - MICROBIOLOGY O RDERABLES Performing Organization Address [facility] Co de Phone Number [facility] ACCOUNT BILL * XR KNEE 4+ VW RIGHT (12/10/2014) Anatomical Region Laterality Modality Lower Extremity Other Angie Sung MD DIAGNOSTIC IMAGING O RDERABLES * CULTURE STREP GROUP A (02/18/2014) Only the most recent of2 resultswithin the time period is included. Miscellaneous samples (specimen) Emergency Physician LAB - MICROBIOLOGY O RDERABLES Performing Organization Address City/[facility]/ZIP Co de Phone Number [facility] ACCOUNT BILL * (ABNORMAL) TISSUE TRANSGLUTAMINASE AB IGA (03/19/2013 9:29 AM ACQUISITION PROFESSIONAL) Pathologist [facility] Tissue Transglutaminase (tTG) Ab, IgA 148(H) 0 - 19 Units 03/20/2013 12:38 PM ACQUISITION PROFESSIONAL [facility] [employer] Comment: INTERPRETIVE INFORMATION: Tissue Transglutaminase (tTG) Antibody, [...] BLOOD SPECIMEN / Unknown 03/19/2013 9:29 AM ACQUISITION PROFESSIONAL 03/19/2013 9:48 AM ACQUISITION PROFESSIONAL Alondra Walls MD LAB - SEROLOGY ORDER WAQAS [facility] [address] [place] [address] * IGA BLOOD (03/19/2013 9:29 AM ACQUISITION PROFESSIONAL) Pathologist [facility] IgA 161 65 - 421 mg/dL 03/19/2013 10:12 AM ACQUISITION PROFESSIONAL [facility] Blood BLOOD SPECIMEN / Unknown 03/19/2013 9:29 AM ACQUISITION PROFESSIONAL 03/19/2013 9:48 AM ACQUISITION PROFESSIONAL Alondra Walls MD LAB - CHEMISTRY ORDE RABLES [facility] [place] [address] * (ABNORMAL) VITAMIN D 25-HYDROXY (03/19/2013 9:28 AM ACQUISITION PROFESSIONAL) Pathologist [facility] Vitamin D, 25 Hydroxy 15.87(L) 30 - 100 ng/mL 03/19/2013 4:29 PM [facility] Blood BLOOD SPECIMEN / Unknown 03/19/2013 9:28 AM ACQUISITION PROFESSIONAL 03/19/2013 9:48 AM ACQUISITION PROFESSIONAL Narrative [facility] - 03/19/2013 4:29 PM ACQUISITION PROFESSIONAL Vitamin D Status: ?Deficiency ? <20 ? ng/mL ?Insufficiency ?? 20-30 ??ng/mL ?Sufficiency ? 30-100 ng/mL ?Toxicity ? >100 ?ng/mL Alondra Walls MD LAB - CHEMISTRY LIZZY LEPE Performing Organization Address [facility] de Phone Number [facility] [address] [place] [address] * HELICOBACTER PYLORI UREASE (03/19/2013 9:17 AM ACQUISITION PROFESSIONAL) Helicobacter pylori Urease Initial Negative Negative 03/20/2013 10:27 AM ACQUISITION PROFESSIONAL [facility] Helicobacter pylori Urease Final Negative Negative 03/20/2013 10:27 AM ACQUISITION PROFESSIONAL [facility] Microbiology GASTRIC ANTRAL BIOPSY SPECIMEN / Unknown 03/19/2013 9:17 AM ACQUISITION PROFESSIONAL 03/19/2013 9:48 AM ACQUISITION PROFESSIONAL Alondra Walls MD LAB - MICROBIOLOGY O JOSIAS Performing Organization Address [facility] de Phone Number [facility] [place] [address] * GROSS + MICRO EXAM (STL) (03/19/2013 9:15 AM ACQUISITION PROFESSIONAL) Case Report Surgical Pathology Report ? Case: [id number] ? Authorizing Provider: ??Alondra Walls MD ? [...] - Esophagus, Distal ? 03/24/2013 10:11 AM [facility] Addendum 1 D) 1 GMS. ?? GMS staining of the esophagus biopsy is negative for fungi. ??(DB/scs) 03/24/2013 10:11 AM [facility] Addendum electronically signed by Harpreet [...] reported in an addendum. 03/24/2013 10:11 AM [facility] Clinical History The patient is a 17-year-old girl with weight loss and elevated celiac serology who underwent upper endoscopy. The findings were erythema, mild nodularity, and scalloping in the duodenum. 03/24/2013 10:11 AM [facility] Gross Description The specimens are [...] toto as D1. ??(CT/vr) 03/24/2013 10:11 AM [facility] Microscopic Description A) 3 H&E; [...] few intraepithelial neutrophils. ??(DB/vr) 03/24/2013 10:11 AM [facility] Disclaimer The performance characteristics of all immunohistochemical and indirect ??immunofluorescence stains (if any) cited in this report were determined by the Histopathology Laboratory of [facility] (immunohistochemistry ) or the Histology Laboratory of [facility] (indirect immunofluorescence) in compliance with CLIA `88 regulations. ??Some of these tests rely on the use of analyte-specific reagents and are subject to specific labeling requirements by the FDA. ??Such tests were developed by the ??[facility] of [facility] or the Histology Laboratory of [facility] and have not been cleared or approved by the FDA. ??The FDA has determined that such clearance or approval is not necessary. ??These tests are used for clinical purposes and should not be regarded as investigational or for research. ? This case has been personally reviewed and interpreted by the attending (teaching) pathologist. 03/24/2013 10:11 AM [facility] Synoptic Report 03/24/2013 10:11 AM [facility] Pathology/Cytology PART OF DUODENUM / Unknown 03/19/2013 9:15 AM ACQUISITION PROFESSIONAL 03/19/2013 9:55 AM ACQUISITION PROFESSIONAL Miscellaneous samples (specimen) ENTIRE STOMACH / Unknown 03/19/2013 9:15 AM ACQUISITION PROFESSIONAL 03/19/2013 9:55 AM ACQUISITION PROFESSIONAL Miscellaneous samples (specimen) REGION OF ESOPHAGUS / Unknown 03/19/2013 9:15 AM ACQUISITION PROFESSIONAL 03/19/2013 9:55 AM ACQUISITION PROFESSIONAL Miscellaneous samples (specimen) REGION OF ESOPHAGUS / Unknown 03/19/2013 9:15 AM ACQUISITION PROFESSIONAL 03/19/2013 9:55 AM ACQUISITION PROFESSIONAL Alondra Walls MD LAB - PATHOLOGY/CYTO LOGY ORDERABLES [facility] [address] [place] [address] * EGD (03/19/2013 8:53 AM ACQUISITION PROFESSIONAL) Report Endoscopy POC __ _ Patient Name: Brandy Gallardo ?Gender: Female ?Date of : 1995 Age: 17 ? Admit Type: Outpatient Attending MD: Alondra Walls, ? Order #: [id number] __ _ Procedure: ? Upper GI endoscopy [...] Procedure Code(s): ? --- Professional --- ? 92677, Upper gastrointestinal endoscopy including esophagus, stomach, ? and either the duodenum and/or jejunum as appropriate; with biopsy, ? single or multiple ? --- Technical --- ? 69389, Upper gastrointestinal endoscopy including esophagus, stomach, ? and either the duodenum and/or jejunum as appropriate; with biopsy, ? single or multiple Diagnosis Code(s): ? --- Professional --- ? 795.79, Other and unspecified nonspecific immunological findings ? --- Technical --- ? 795.79, Other and unspecified nonspecific immunological findings CPT (R) 2012 [employer]. All Rights Reserved. The codes documented in this report are preliminary and upon inhalation therapy aides teacher review may be revised to meet current compliance requirements. Dr. Alondra Walls Alondra Walls, 03/19/2013 9:24 AM This report has been signed electronically. Number of Addenda: 0 Note Initiated On: 03/19/2013 8:53 AM Procedure Date: ? 03/19/2013 8:53:02 AM ? This report has been signed electronically. [facility] 03/19/2013 8:53 AM ACQUISITION PROFESSIONAL Narrative [facility] - 03/20/2013 1:27 PM ACQUISITION PROFESSIONAL Procedure Note Alondra Walls MD - 03/19/2013 10:19 AM CST Alondra Walls MD GI PROCEDURE ORDERAB LES [facility] [address] [facility] [place] [address] * HCG URINE QUALITATIVE - POCT (IP) FRANCIA (03/19/2013 8:00 AM ACQUISITION PROFESSIONAL) HCG Qual Urine Negative Negative [facility] POCT TESTING QC Verified YES Yes [facility] PO CT TESTING Urine specimen (specimen) URINE / Unknown 03/19/2013 8:00 AM ACQUISITION PROFESSIONAL Alondra Walls MD LAB - POINT OF CARE ORDERABLES [facility] [address] [facility] [place] [address] * XR CHEST PA AND LATERAL(most commonly ordered) (03/04/2013 2:10 PM ACQUISITION PROFESSIONAL) Anatomical Region Laterality Modality Chest Radiographic Ashley ging 03/04/2013 2:12 PM ACQUISITION PROFESSIONAL Impressions 03/04/2013 2:13 PM ACQUISITION PROFESSIONAL No focal infiltrate. Narrative 03/04/2013 2:13 PM ACQUISITION PROFESSIONAL 2 views of the chest performed March [...] RDERABLES * MONONUCLEOSIS SCREEN (03/04/2013 1:19 PM ACQUISITION PROFESSIONAL) Mononucleosis Screen Negative Negative 03/04/2013 2:56 PM ACQUISITION PROFESSIONAL [facility] Blood BLOOD SPECIMEN / Unknown 03/04/2013 1:19 PM ACQUISITION PROFESSIONAL 03/04/2013 1:26 PM ACQUISITION PROFESSIONAL Meron Parada MD LAB - CHEMISTRY LIZZY LEPE [facility] [address] [place] [address] * (ABNORMAL) CBC W AUTO DIFFERENTIAL (03/04/2013 1:19 PM ACQUISITION PROFESSIONAL) Only the most recent of2 resultswithin the time period is included. Pathologist [facility] WBC 11.2(H) 4.5 - 11.0 x10^9/L 03/04/2013 1:35 PM [facility] RBC 4.52 4.10 - 5.10 x10^12/L 03/04/2013 1:35 PM [facility] Hemoglobin 12.7 12.0 - 16.0 gm/dL 03/04/2013 1:35 PM [facility] Hematocrit 38.0 36.0 - 47.0 % 03/04/2013 1:35 PM [facility] MCV 84.1 78.0 - 98.0 fl 03/04/2013 1:35 PM [facility] MCH 28.1 25.0 - 35.0 pg 03/04/2013 1:35 PM [facility] MCHC 33.4 31.0 - 37.0 gm/dL 03/04/2013 1:35 PM [facility] Platelet Count 328 100 - 400 x10^9/L 03/04/2013 1:35 PM [facility] RDW-CV 13.3 11.5 - 14.0 % 03/04/2013 1:35 PM [facility] MPV 10.7(H) 6.0 - 9.5 fl 03/04/2013 1:35 PM [facility] Hematology Reflex Status Manual Diff to follow 03/04/2013 1:35 PM [facility] Blood BLOOD SPECIMEN / Unknown 03/04/2013 1:19 PM ACQUISITION PROFESSIONAL 03/04/2013 1:26 PM ACQUISITION PROFESSIONAL Meron Parada MD LAB - HEMATOLOGY ORD ERABLES [facility] [address] [place] [address] * (ABNORMAL) COMPREHENSIVE METABOLIC PANEL (03/04/2013 1:19 PM ACQUISITION PROFESSIONAL) Only the most recent of3 resultswithin the time period is included. [facility] Glucose 85 70 - 105 mg/dL 03/04/2013 1:51 PM [facility] Sodium 141 136 - 145 mmol/L 03/04/2013 1:51 PM [facility] Potassium 3.7 3.5 - 5.1 mmol/L 03/04/2013 1:51 PM [facility] Chloride 106 98 - 107 mmol/L 03/04/2013 1:51 PM [facility] CO2 21 20 - 28 mmol/L 03/04/2013 1:51 PM [facility] Calcium 10.23 9.08 - 10.48 mg/dL 03/04/2013 1:51 PM [facility] Anion Gap 14 5 - 20 mmol/L 03/04/2013 1:51 PM [facility] BUN 11.4 5.3 - 18.7 mg/dL 03/04/2013 1:51 PM [facility] Creatinine 0.64 0.61 - 1.07 mg/dL 03/04/2013 1:51 PM [facility] eGFR by MDRD >60 mL/min/1.7 3m2 03/04/2013 1:51 PM [facility] Comment:eGFR calculations ar e not performed for children under 18 years old. eGFR by MDRD >60 mL/min/1.7 3m2 03/04/2013 1:51 PM [facility] Comment:eGFR calculations ar e not performed for children under 18 years old. Alkaline Phosphatase 84(L) 100 - 390 U/L 03/04/2013 1:51 PM [facility] ALT 14 8 - 65 U/L 03/04/2013 1:51 PM [facility] AST 17 3 - 35 U/L 03/04/2013 1:51 PM [facility] Protein Total 8.1 6.3 - 8.2 gm/dL 03/04/2013 1:51 PM [facility] Albumin 4.2 3.3 - 4.9 gm/dL 03/04/2013 1:51 PM [facility] Bilirubin Total 0.4 0.3 - 1.2 mg/dL 03/04/2013 1:51 PM [facility] Blood BLOOD SPECIMEN / Unknown 03/04/2013 1:19 PM ACQUISITION PROFESSIONAL 03/04/2013 1:30 PM [facility] Meron Parada MD LAB - CHEMISTRY LIZZY LEPE Performing Organization Address [facility] de Phone Number [facility] [address] [place] [address] * DIFFERENTIAL MANUAL (03/04/2013 1:19 PM ACQUISITION PROFESSIONAL) WBC Auto 11.2 x10^9/L 03/04/2013 2:45 PM [facility] Neutrophil % Manual 74 31 - 78 % 03/04/2013 2:45 PM [facility] Lymphocytes % Manual 16 13 - 54 % 03/04/2013 2:45 PM [facility] Monocytes % Manual 6 4 - 13 % 03/04/2013 2:45 PM [facility] Eosinophils % Manual 3 0 - 8 % 03/04/2013 2:45 PM [facility] Basophils % Manual 1 % 03/04/2013 2:45 PM [facility] Cells Counted 100 # cells 03/04/2013 2:45 PM [facility] Platelet Estimation Adequate platelets Normal, Adequate platelets 03/04/2013 2:45 PM [facility] RBC Morphology Normal 03/04/2013 2:45 PM [facility] WBC Morph Normal 03/04/2013 2:45 PM [facility] Blood BLOOD SPECIMEN / Unknown 03/04/2013 1:19 PM ACQUISITION PROFESSIONAL 03/04/2013 1:26 PM [facility] Meron Parada MD LAB - HEMATOLOGY JUHI GLYNN Performing Organization Address [facility] de Phone Number [facility] [address] [place] [address] * (ABNORMAL) CELIAC DISEASE COMPREHENSIVE (12/24/2012 3:42 [...] PM CDT Narrative Resulting Agency Comment [facility] [address] ??[facility] [phone] Angie Sung MD LAB - CHEMISTRY LIZZY LEPE [facility] ACCOUNT BILL * C-REACTIVE PROTEIN (CRP) (12/24/2012 3:42 PM CDT) C-Reactive Protein 1.2 0.0 - 4.9 mg/L [facility] ACCOUNT BILL Blood specimen (specimen) BLOOD SPECIMEN / Unknown 12/24/2012 3:42 PM CDT 12/24/2012 6:08 PM CDT Narrative Resulting Agency Comment [facility] [place] [address] ??[facility] [phone] Angie Sung MD LAB - CHEMISTRY LIZZY LEPE Performing Organization Address [facility]/ZIP Co de Phone Number [facility] ACCOUNT BILL * SED RATE AUTO (ESR) (12/24/2012 3:42 PM CDT) Only the most recent of2 resultswithin the time period is included. Erythrocyte Sedimentation Rate Westergren 7 0 - 32 mm/hr [facility] ACCOUNT BILL Blood specimen (specimen) BLOOD SPECIMEN / Unknown 12/24/2012 3:42 PM CDT 12/24/2012 6:08 PM CDT Narrative Resulting Agency Comment [facility] [place] [address] ??[facility] [phone] Angie Sung MD LAB - HEMATOLOGY JUHI GLYNN Performing Organization Address [facility] de Phone Number [facility] ACCOUNT BILL * LIPASE BLOOD (12/24/2012 3:42 PM CDT) Lipase 25 0 - 59 U/L [facility] A CCOUNT BILL Blood specimen (specimen) BLOOD SPECIMEN / Unknown 12/24/2012 3:42 PM CDT 12/24/2012 6:08 PM CDT Narrative Resulting Agency Comment [facility] [place] [address] ??[place] [phone] Angie Sung MD LAB - CHEMISTRY LIZZY LEPE Performing Organization Address [facility]/ZIP Co de Phone Number [facility] ACCOUNT BILL * AMYLASE BLOOD (12/24/2012 3:42 PM CDT) Amylase 35 31 - 124 U/L [facility] ACCOUNT BILL Blood specimen (specimen) BLOOD SPECIMEN / Unknown 12/24/2012 3:42 PM CDT 12/24/2012 6:08 PM CDT Narrative Resulting Agency Comment [facility] [place] [address] ??[facility] [phone] Angie Sung MD LAB - CHEMISTRY LIZZY LEPE Performing Organization Address [facility] de Phone Number [facility] ACCOUNT BILL * TSH (12/22/2012 3:06 PM CDT) Only the most recent of2 resultswithin the time period is included. TSH 2.340 0.450 - 4.500 uIU/mL [facility] ACCOUNT BILL Blood specimen (specimen) BLOOD SPECIMEN / Unknown 12/22/2012 3:06 PM CDT 12/22/2012 6:07 PM CDT Narrative Resulting Agency Comment [facility] ??[facility] [phone] Angie Sung MD LAB - CHEMISTRY LIZZY LEPE Performing Organization Address [facility] de Phone Number [facility] ACCOUNT BILL * T4 FREE (12/22/2012 3:06 PM CDT) Only the most recent of2 resultswithin the time period is included. Pathologist [facility] T4 Free 1.28 0.93 - 1.60 ng/dL [facility] ACCOUNT BILL Blood specimen (specimen) BLOOD SPECIMEN / Unknown 12/22/2012 3:06 PM CDT 12/22/2012 6:07 PM CDT Narrative Resulting Agency Comment [facility] ??[facility] [phone] Angie Sung MD LAB - CHEMISTRY LIZZY LEPE Performing Organization Address [facility] de Phone Number [facility] ACCOUNT BILL [...] PM CDT Narrative Resulting Agency Comment [facility] [place] [address] ??[facility] [phone] Angie Sung MD LAB - URINE CHEMISTR Y ORDERABLES Performing Organization Address [facility] Co de Phone Number [facility] ACCOUNT BILL [...] - MICROBIOLOGY O RDERABLES Performing Organization Address [facility] Co de Phone Number [facility] ACCOUNT BILL * CULTURE THROAT (09/18/2010 2:34 PM CDT) Upper Respiratory Culture Final report [facility] ACCOUNT BILL Result 1 RRF [facility] ACCOUNT BILL Comment:Routine respiratory cuca ENTIRE PHARYNX / Unknown 09/18/2010 2:34 PM CDT 09/18/2010 11:04 PM CDT Narrative Resulting Agency Comment [facility] [place] [address] ??[facility] [phone] Angie Sung MD LAB - MICROBIOLOGY O RDERABLES Performing Organization Address City/[facility]/ZIP Co de Phone Number [facility] ACCOUNT BILL Care Teams Stroboscope Operator Relationship Specialty Start Date End Date Jesus [place] MD [address] [place] [address] PCP - General 07/05/22
[2024-05-30 09:32] LABS: Basophils Percent Auto 0.5 % (0.2-1.2); Eosinophils Absolute Auto 0.2 K/mm3 (0-0.3); Eosinophils Percent Auto 1.8 % (0-4.4); Hematocrit 39.5 % (37.0-47.0); Immature Granulocyte Absolute 0.05 K/mm3 (0.00-0.031); Immature Granulocyte Percent A 0.6 % (0-0.5); Lymphocytes Percent Auto 18.4 % (18.3-44.2); Mean Corpuscular HGB Conc 32.9 g/dl (32-36); Mean Corpuscular Hemoglobin 30.1 pg (26-34); Mean Corpuscular Volume 91.4 fl (80-100); Monocytes Absolute Auto 0.6 K/mm3 (0.1-0.6); Monocytes Percent Auto 7.1 % (2.6-8.5); Neutrophils Absolute Auto 6.2 K/mm3 (1.3-6.7); Neutrophils Percent Auto 71.6 % (45.5-73.1); Platelet Count Result 217 k/mm3 (150-375); Red Blood Count 4.32 M/mm3 (4.2-5.4); Red Cell Distribution Width 12.5 % (11.5-14.5); White Blood Count 8.7 K/mm3 (4.5-10.0)
[2024-05-30 09:45] LABS: Alanine Aminotransferase 42 U/L (6-35); Albumin Level 4.5 g/dL (3.5-5.1); Alkaline Phosphatase 51 U/L (38-126); Anion Gap 11 mmol/L (4-12); Aspartate Amino Transferase 31 U/L (14-36); Bilirubin,Total 0.6 mg/dL (0.2-1.3); Blood Urea Nitrogen 8 mg/dL (7-17); Calcium 9.8 mg/dL (8.4-10.2); Carbon Dioxide 23 mmol/L (22-30); Chloride 103 mmol/L (98-107); Estimated Glomerular Filt Rate > 60; Glucose 84 mg/dL (65-110); Lactate Dehydrogenase 153 U/L (120-246); Potassium 3.6 mmol/L (3.4-5.0); Sodium 137 mmol/L (137-145)
[2024-05-30 10:26] LABS: HIV 1/2 Ab P24 Ag Result Negative (Negative)
[2024-05-30 10:31] LABS: Hepatitis B Surface Antigen Negative (Negative); Rubella IgG Antibody 11.1 IU/ML
[2024-05-30 11:28] LABS: Creatinine Urine 28.9 mg/dL; Total Protein Urine Random 15 mg/dL
[2024-05-30 15:43] LABS: Rapid Plasma Reagin Non-Reactive (NonReactive)
[2024-06-01 16:43] LABS: Varicella IgG Antibody 2.11 S/CO
== END 2024-05-30 08:59 | disposition home or self-care (01) ==
LOC: ANHLAB 08:59
PROVIDERS: PCP Family Medicine; Visit Provider Obstetrics & Gynecology
DX: N94.89 Other specified conditions associated with female genital organs and menstrual cycle (principal); O09.299 Supervision of pregnancy with other poor reproductive or obstetric history, unspecified trimester; Z3A.00 Weeks of gestation of pregnancy not specified
CPT/HCPCS: 36415; 80053; 81050; 82570; 83615; 84156; 84443; 84550; 84702; 85025; 86592; 86644; 86703; 86747; 86762; 86787; 86850; 86900; 86901; 87086; 87340; G0432

== ENCOUNTER 2024-06-15 01:27 | Day surgery (SDC) | payer OTHER, SELFPAY ==
[2024-06-11 10:06] VITALS: BMI 28.3
--- NOTE | 2024-06-11 10:10 | PC.NURSE ---
Report to the Outpatient Waiting Room, entrance under the green pavilion located off [facility], at time _0930_ on date _[id number]_. Planned Procedure Time: _1130_.? Time changes happen often and if your time is changed the preop area will call you the afternoon before. - You and your visitor will be asked to self-screen and do not enter if you have any COVID symptoms. Please call surgeon if you need to reschedule. - A mask is optional within the hospital at this time. Patients may have clear liquids (water, carbonated beverages, clear teas, apple juice) until 3 hours prior to surgery with a maximum of 20 ounces. - No food from midnight until time of surgery and no smoking, or chewing tobacco (or any form of nicotine). No chewing gum, candy or mints. Take only the following medications with a SIP of water on the morning of surgery: ____None___ DO NOT STOP ANY OF YOUR OTHER PRESCRIPTION MEDICATIONS PRIOR TO SURGERY EXCEPT THE FOLLOWING Hold all vitamins and supplements for 3 days per anesthesiologist. Medications to discontinue per physician Date to take last azrg___[phone]____ Please no make-up, nail indonesian, hairspray, perfume, deodorant, or body powder the day of surgery.? No jewelry (including any body piercings) or valuables the day of surgery, leave them at home.? Please take a shower or bath the night before, or the morning of, surgery with an antibacterial soap.? Wear comfortable, loose fitting clothing.? - Jewelry must be removed prior to entering the operating room.? Rings and piercings that are not removed may be cut off. - The hospital will not accept responsibility for valuables.? - Please leave all valuables, including medications, at home the day of surgery. If you are going home after surgery, a licensed belly dump driver must drive you home.? - NO public transportation without another adult if you receive anesthesia. - We recommend that an adult stay with you for 24 hours following discharge. - We also recommend that you do not drive, make important decision, drink alcoholic beverages, or take any drugs that were not prescribed by your health care provider for at least 24 hours after your discharge time. Follow any additional instructions given to you from your surgeon. Telephone instructions given to __Anna__and asked if any additional questions and then verbalized understanding. Patient advised to call surgeon office or pre surgery nurse liaison [phone] if any additional questions.
--- NOTE | 2024-06-14 10:53 | P.HP_ITS ---
H&P: HPI History of Present Illness Date/Time: 06/14/24 10:53 Chief Complaint: MAB Narrative: Brandy is a 28yo , LMP 03/29/24 who had a scheduled OB US for dating. On the dating US performed 06/10/24, she was supposed to be measuring 10w3d, and was measuring only 8w6d. The CRL was measuring 1.6cm and no heart tones were detected. She has not had any bleeding or pain. She was counseled on her options and desired to proceed with surgical management via suction D&C. Her blood type is O+. Review of Systems Constitutional: Constitutional: Denies chills, Denies fever(s) and Denies headache(s) Eyes: Eyes: Denies change in vision ENT: Denies dizziness and Denies headache(s) Cardiovascular: Cardiovascular: Denies chest pain and Denies dyspnea Respiratory: Respiratory: Denies cough and Denies dyspnea Gastrointestinal: Gastrointestinal: Denies abdominal pain and Denies change in stool character Genitourinary: Genitourinary: Denies abnormal menses, Denies pelvic pain, Denies vaginal discharge, Denies vaginal odor and Denies vaginal pruritus Neurologic: Denies dizziness and Denies headache(s) Psychiatric: Psychiatric: Denies anxiety and Denies depression PMFSH Past Medical History Medical History Suppression of menses Costochondritis Fibromyalgia Psoriasis Acute arthritis Anxiety Low ferritin level Arthralgia BMI 25.0-25.9,adult Eustachian tube dysfunction BMI 26.0-26.9,adult Hx of psoriatic arthritis BMI 24.0-24.9, adult BMI 22.0-22.9, adult Celiac disease Surgical History Surgical History H/O endoscopy Hx of cholecystectomy Family History Family History Father Hypertension Diabetes mellitus Obesity Mother Depression Thyroid cancer Thyroid disorder Sibling Thyroid disorder COVID-19 Hypertension Social History Social History Smoking status: Never smoker Second hand tobacco smoke exposure: No Alcohol intake: never Substance use: never Substance use type: does not use Do You Feel Safe in your Home?: Yes Lack of Transportation: No Lack of Food: Never True Current Housing: I Have Housing Concerned About Future Housing: No Difficulty Paying Gas/Electric Bills: No Difficulty Paying for Meds: No Currently Unemployed: No Education: Bachelor's Degree Difficulty w/ Childcare or Family Care: No Living arrangements: with family Occupation/Education: occupation 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 Gender identity (if verbalized by the patient): Female Spiritual care concerns: No Meds Home Medications and Allergies Home Medications ?Medication ?Instructions ?Recorded ?Confirmed ?Type docosahexaenoic acid 200 mg 200 mg PO DAILY 04/13/24 06/11/24 History capsule ( DHA) ferrous sulfate 325 mg (65 mg 325 mg PO DAILY 04/13/24 06/11/24 History iron) tablet (FeroSul) doxylamine succinate 25 mg tablet 12.5 mg (1/2 x 25 mg) PO TID #90 05/26/24 06/11/24 Rx (Unisom (doxylamine)) tabs magnesium oxide 400 mg PO DAILY #90 caps 05/26/24 06/11/24 Rx ondansetron 4 mg disintegrating 4 mg PO Q6H PRN nausea and 05/26/24 06/11/24 Rx tablet vomiting #30 tabs pyridoxine (vitamin B6) 25 mg 25 mg PO TID #120 tabs 05/26/24 06/11/24 Rx tablet Allergies Allergy/AdvReac Type Severity Reaction Status Date / Time cephalexin (From Keflex) AdvReac Intermediate Vomiting Verified 06/11/24 10:04 gluten AdvReac Intermediate Gastrointestinal Verified 06/11/24 10:04 Upset prochlorperazine (From AdvReac Intermediate Palpitation Verified 06/11/24 10:04 Compazine) s chlorpheniramine (From AdvReac Mild Hives Verified 06/11/24 10:04 Donatussin) ciprofloxacin (From Cipro) AdvReac Mild Hives Verified 06/11/24 10:04 dextromethorphan (From AdvReac Mild Hives Verified 06/11/24 10:04 Donatussin) phenylephrine (From AdvReac Mild Hives Verified 06/11/24 10:04 Donatussin) Exam Const: General: cooperative, healthy appearing, comfortable and no acute distress Orientation/consciousness: patient oriented x3 Resp: Effort & Inspection: normal respiratory effort Cardio: Rate: regular rate GI: Inspection: normal to inspection GI Palp: No abdominal tenderness and Yes Soft to palpation : Other: deferred to OR Skin: General skin exam: normal color Neuro: General: patient oriented x3 Extrem: General: normal to inspection Psych: Appearance: grossly normal Affect: normal affect Attitude: cooperative Assessment and Plan Assessment and plan (1) Missed with demise before 20 completed weeks of gestation: Code(s): O02.1 - Missed Status: Acute Plan - Pt meets criteria for MAB; CRL was measuring 1.6cm and no heart tones were detected - Pt was counseled on expectant vs medical vs surgical interventions - She desires to proceed with suction D&C - Risks and benefits discussed in detail - Pt is Rh positive and does not need rhogam - Doxycycline 100mg PO before surgery, and 200mg post procedure
[2024-06-15] VITALS (9 sets, daily range): BP systolic 101–135; BP diastolic 52–71; PULSE 87–112; RESP 14–24; TEMP 36.4–36.7; O2SAT 96–100
--- NOTE | ~2024-06-15 | US_ITS ---
EXAMINATION: US OB <= 14 weeks fetus DATE: 06/15/2024 10:03 INDICATION: Spontaneous with retained products of conception. TECHNIQUE: Real-time transabdominal pelvic ultrasound was performed. COMPARISON: Ultrasound 06/10/2024 FINDINGS: The uterus measures 8.7 x 5.3 x 7.2 cm. There is an intrauterine gestational sac. A yolk sac is ident ified. The crown rump length measures 1.6 cm, which correlates with an estimated gestational a ge of 8 weeks and 0 day(s) (+/-) 5 day(s). heart motion is not identified by M-mode Doppler. Th e right ovary . The ovaries are not visualized. IMPRESSION: 1. demise. Reviewed, dictated and finalized at location A. D BUTTONHOLE MACHINE OPERATOR IMPRESSION: 1. demise.
--- OUTSIDE RECORDS SUMMARY | 2024-06-15 01:29 | XMS_ITS | Encounter Summary ---
Author Organization [facility] Health Address [address] [place] [address] Care Team Providers Care Coal Loader Name Role Phone Jesus Avila MD Primary Care Provider [phone] Encounter Details Date Type Department Care Team (Late st Contact Info) Description 02/26/2013 [facility] Outpatient Visit CG DEFAULT [address] [place] [address] Unknown, Provider Social History Tobacco Use Types [...] on filedocumented in this encounter Care Teams Coal Loader Relationship Specialty Start Date End Date Jesus Avila MD [address] [place] [address] PCP - General 07/05/22 documented as of this encounter
--- OUTSIDE RECORDS SUMMARY | 2024-06-15 01:29 | XMS_ITS | Referral Summary ---
Author Organization [facility] Address [address] [place] [address] Care Team Providers Care Clerical Support Name Role Phone Jesus Avila MD Primary Care Provider [phone] Source Comments [facility],non-owned Affiliates and Associated Physician Practices is amultiple site organization consisting of ambulatory clinics and hospital sitesin [place], [place], [place] and [place]. This disclosure is being madepursuant to the Care Everywhere program and may not contain all information available regarding this patient. Last updated 18.[facility] Allergies Active Allergy Reactions [...] Comments Blood Pressure 127/80 07/05/2022 10:56 AM ADVANCED RESEARCH PROGRAMS DIRECTOR Pulse 93 07/05/2022 10:56 AM ADVANCED RESEARCH PROGRAMS DIRECTOR Temperature 37 C (98.6 F) 07/05/2022 10:56 AM ADVANCED RESEARCH PROGRAMS DIRECTOR Respiratory Rate 18 07/05/2022 10:56 AM ADVANCED RESEARCH PROGRAMS DIRECTOR Oxygen Saturation 100% 07/05/2022 10:56 AM ADVANCED RESEARCH PROGRAMS DIRECTOR Inhaled Oxygen Concentration - - Weight 68.9 kg (152 lb) 07/05/2022 10:56 AM ADVANCED RESEARCH PROGRAMS DIRECTOR Height 152.4 cm (5') 07/05/2022 10:56 AM ADVANCED RESEARCH PROGRAMS DIRECTOR Body Mass Index 29.69 07/05/2022 10:56 AM ADVANCED RESEARCH PROGRAMS DIRECTOR Plan of Treatment Not on file Administered Medications Care Teams Clerical Support Relationship Specialty Start Date End Date Jesus Avila MD [address] [place] [address] PCP - General 07/05/22
--- OUTSIDE RECORDS SUMMARY | 2024-06-15 01:29 | XMS_ITS | Data Portability ---
Author Organization [place] - [facility] and S, [facility] Address [address] [place] [address] [place] [address] Assessment No assessment recorded. Plan of Treatment Reminders Order Date Submit Date Provider Last Modified By Organization Details Last Modified Time Details Appointments None recorded. Lab urinalysis , dipstick 2018 [email or web address] [facility], [address], [place], [address], 16:30:32 Referral None recorded. Procedures None recorded. Surgeries None recorded. Imaging None recorded. Medication Orders Bactrim DS 800 mg-160 mg tablet 2018 INTERFACE [id number], [address], [place], [place], [phone], 9 16:30:48 phenazopyr idine 200 mg tablet [id number], [address], [place], [place], [phone], 9 16:30:48 Patient TargetsNo targets recorded. Patient InstructionsNo instructions recorded. Reason for Referral None Reported. Results Created Date Observation Date Name Description Value Unit Range Abnormal Flag Note LastModifiedBy Organization Detail LastModifiedTime 02/08/2002/07/2019 urina lysis , dipst ick Leukocytes 2+ Not Available [facility] [address], [place], [address], 02/07/2019 16:25:51 02/08/20 19 02/07/2019 urina lysis , dipst ick Nitrite positi ve Not Available [facility] [address], [place], [address], 02/07/2019 16:25:51 02/08/20 19 02/07/2019 urina lysis , dipst ick Urobilinogen 0.2 Not Available [facility] [address] [place] [address] [place], [place], [address], 02/07/2019 16:25:51 02/08/20 19 02/07/2019 urina lysis , dipst ick Protein Negati ve Not Available [facility] [address] [place] [address] [place], [place], [address], 02/07/2019 16:25:51 02/08/2002/07/2019 urina lysis , dipst ick pH 6.0 Not Available [facility] [address] [place] [address] [place], [place], [address], 02/07/2019 16:25:51 02/08/20 19 02/07/2019 urina lysis , dipst ick Blood 1+ Not Available [facility] [address] [place] [address] [place], [place], [address], 02/07/2019 16:25:51 02/08/20 19 02/07/2019 urina lysis , dipst ick Specific [place] 1.025 Not Available [facility] [address] [place] [address] [place], [place], [address], 02/07/2019 16:25:51 02/08/20 19 02/07/2019 urina lysis , dipst ick Ketone 1+ Not Available [facility] [address] [place] [address] [place], [place], [address], 02/07/2019 16:25:51 02/08/20 19 02/07/2019 urina lysis , dipst ick Bilirubin Negati ve Not Available [facility] [address], [place], [address], 02/07/2019 16:25:51 02/08/20 19 02/07/2019 urina lysis , dipst ick Glucose Negati ve Not Available [facility] [address] [place] [address], [place], [address], 02/07/2019 16:25:51 02/08/20 19 02/07/2019 urina lysis , dipst ick Appearance Turbid Not Available [facility] [address] [place] [address], [place], [address], 02/07/2019 16:25:51 02/08/20 19 02/07/2019 urina lysis , dipst ick Color Dark Yellow Not Available [facility] [address] [place] [address], [place], [address], 02/07/2019 16:25:51 Result Notes None recorded. Problems Name Problem SNOMED Code Status Onset Date Resolution Date Notes Provider Name and Address Organization Details Recorded Time Acute urinary tract infection 948425688 Active 019 Laurent Dye [facility] [place], [place] - [facility] S 9 16:28:08 Problem Notes None recorded. Medical Equipment None Reported. Allergies Allergen ID Allergen Name Allergen Category Reaction Reaction Severity Criticality Documentation Date Start Date Code Code System Note Provider Name and Address Organization Details Recorded Time 9373 chlorphen iramine / dextromet horphan / phenyleph rine medicatio n Not available Not available Not available 02/07/2019 32783 9 RxNorm Not Available Not Available Not [...] Updated DateTime 9 91 /min 97.7 [degF] 15970.8 6 g 152.4 cm 29.3 kg/m2 96 % 96 % 128 mm[Hg] 86 mm[Hg] Rebecca Karen [facility] and S 9 16:25:26 Social History None recorded. Functional Status None recorded. Mental Status None recorded. Family History Nothing Reported. Medical History No medical history recorded. Gynecological HistoryNo gynecological history recorded. Obstetrics History GPAL:G 0 P 0 0 0 0 Past Encounters Encounter ID Performer Location Encounter Start Date Encounter Closed Date Diagnosis/Indication Diagnosis SNOMED-CT Code Diagnosis ICD10 Code Diagnosis Note [id number] Laurent MELENDEZ [facility] [address] [place] [address] 02/07/2019 16:13:18 02/07/2019 16:48:34 Acute urinary tract infection 358113586 N39.0 Health Concerns Section Related Observation LastModified by Organization Detai ls LastModified Time None Recorded Concern Status LastModified by Organization Details LastModified Time None Recorded Advance Directives Directive None Recorded Payers Encounter Date Sequence Insurance Name Policy Number Policy Lange Covered Member ID Lange Member ID Guarantor Name 02/07/2019 2 [employer] - [employer] ( SUPPLEMENT) Jamari Bravo [id number] Brandy Bravo 02/07/2019 1 [facility] () Jamari Bravo [id number] Brandy Bravo Notes Date Note Type Note Provider Name and Address Organization Details Recorded Time 02/07/2019 text/html 23/f here with c/o dysuria, frequency, urgency, and suprapubic tenderness x4 days. Denies c/f/n/v/d. Laurent BURDEN-Celestino [facility] and S 02/07/2019 16:31:25 OBGyn Episode No OBEpisode recorded.
--- OUTSIDE RECORDS SUMMARY | 2024-06-15 01:29 | XMS_ITS | Clinical Summary ---
Author Organization [facility] Address [address] [place] [address] Care Team Providers Care Jailor Name Role Phone Jesus Avila MD Primary Care Provider [phone] Allergies Active Allergy Reactions Criticality Noted Date Comments Lgozecxemaijj-Nxwvgwhsk-[place] Hives Prochlorperazine Other (see comment) 11/14/2020 Increased Heart Rate Gluten Meal Diarrhea 11/13/2020 Cephalexin Vomiting Medium 11/13/2020 Medications No known medications Active Problems Problem Noted Date Diagnosed Date Pyelonephritis 11/13/2020 Celiac disease ([facility]) 02/22/2015 GERD without esophagitis 04/11/2010 Migraine 04/11/2010 [...] 85 11/24/2020 2:14 PM CDT Temperature 37.1 C (98.7 F) 11/24/2020 9:36 AM CDT Respiratory Rate 18 [...] 12:25 AM 11/15/2020 1:32 PM Care Teams Jailor Relationship Specialty Start Date End Date Jesus Avila MD [address] [place] [address] PCP - General FAMILY PRACTICE 11/24/20
--- OUTSIDE RECORDS SUMMARY | 2024-06-15 01:29 | XMS_ITS | Patient Health Summary ---
Author Organization [facility] Address [address] [place] [address] Care Team Providers Care Sheet Pile Hammer Operator Name Role Phone Jesus Avila MD Primary Care Provider [phone] Note from [facility],non-owned Affiliates and Associated Physician Practices is amultiple site organization consisting of ambulatory clinics and hospital sitesin [place] and [place]. This disclosure is being madepursuant to the Care Everywhere program and may not contain all information available regarding this patient. Last updated 18.[facility] Allergies * Donatussin(Urticaria) * Fish Allergy(Rash,Swelling) -Medium [...] Comments Blood Pressure 127/80 07/05/2022 10:56 AM EGG SEPARATOR Pulse 93 07/05/2022 10:56 AM EGG SEPARATOR Temperature 37 C (98.6 F) 07/05/2022 10:56 AM EGG SEPARATOR Respiratory Rate 18 07/05/2022 10:56 AM EGG SEPARATOR Oxygen Saturation 100% 07/05/2022 10:56 AM EGG SEPARATOR Inhaled Oxygen Concentration - - Weight 68.9 kg (152 lb) 07/05/2022 10:56 AM EGG SEPARATOR Height 152.4 cm (5') 07/05/2022 10:56 AM EGG SEPARATOR Body Mass Index 29.69 07/05/2022 10:56 AM EGG SEPARATOR Procedures * PATHOLOGY/CYTOLOGY REPORT ORDER(Performed 07/05/2022) * [...] Unknown 09/27/2018 12:34 PM CDT Derian Rush APRN-FINANCE DIRECTOR LAB - POINT OF CARE ORDERABLES * (ABNORMAL) CULTURE URINE (12/07/2016 4:14 PM CDT) Only the most recent of5 resultswithin the time period is included. Pathologist [facility] Urine Culture Routine Final report(A) [facility] ACCOUNT BILL Result 1 (A) [facility] ACCOUNT BILL Comment: Coagulase negative Staphylococcus species, not Staphylococcus saprophyticus. Greater than 100,000 colony forming units per mL Based on resistance to penicillin and susceptibility to oxacillin this isolate would be susceptible to: * Penicillinase-stable penicillins; such as: Cloxacillin Dicloxacillin Nafcillin * Beta-lactam/beta-lactamase inhibitor combinations; such as: Amoxicillin-clavulanic acid Ampicillin-sulbactam * Antistaphylococcal cephems; such as: Cefaclor Cefuroxime * Antistaphylococcal carbapenems; such as: Imipenem Meropenem Antimicrobial Susceptibility [facility] ACCOUNT BILL Comment: S = Susceptible; I = Intermediate; R = Resistant P = Positive; N = Negative MICS are expressed in micrograms per mL Antibiotic RSLT#1 RSLT#2 RSLT#3 RSLT#4 Ciprofloxacin S Gentamicin S Levofloxacin S Linezolid S Nitrofurantoin S Oxacillin S Penicillin R Quinupristin/Dalfopristin S Rifampin S Tetracycline S Trimethoprim/Sulfa R Vancomycin S Urine URINE SPECIMEN FROM URINARY BLADDER / Unknown 12/07/2016 4:14 PM CDT 12/07/2016 Narrative Resulting Agency Comment [facility] [place] [address] [id number] Angie Sung MD LAB - MICROBIOLOGY O RDERABLES [facility] ACCOUNT BILL [address] [place] [address] * (ABNORMAL) URINALYSIS - POINT OF CARE (12/07/2016) Only the most recent of7 resultswithin the time period is included. Clarity UA POCT clear Color UA POCT yellow Leukocyte UA 2+ Negative Nitrite UA POCT + Negative Urobilinogen UA 0.0(A) 0.1 - 1.0 Protein UA POCT 0.1 Negative pH UA 5.0 5.0 - 8.0 pH units Blood UA 250 Negative Specific [place] UA POCT 1.020 1.002 - 1.030 Ketone [...] HANDS BILATERAL 2 VIEWS (06/21/2015 4:04 PM EGG SEPARATOR) Anatomical Region Laterality Modality Wrist / Hand, Upper Extremity Ra diographic Imaging 06/21/2015 4:08 PM EGG SEPARATOR Narrative 06/21/2015 4:56 PM EGG SEPARATOR BILATERAL HANDS, TWO VIEW History: Psoriatic arthritis. [...] by Abel Pack on 06/21/2015 4:37 PM Vreo Valverde MD DIAGNOSTIC IMAGING O RDERABLES * XR KNEE BILAT ONE OR TWO VIEWS (06/21/2015 4:04 PM EGG SEPARATOR) Anatomical Region Laterality Modality Lower Extremity Radiographic Ashley ging 06/21/2015 4:07 PM EGG SEPARATOR Addenda Addendum by Tal Garner MD on 06/22/2015 11:14 AM EGG SEPARATOR TO X-RAY REPORT The examination was bilateral knees, four view. The osseous structures are normal. There is no evidence of fracture or dislocation. No joint effusion is present. There is no joint space narrowing or erosions. DIAGNOSIS: Normal examination. Edited by Abel Pack on 06/22/2015 10:51 AM Narrative 06/21/2015 4:08 PM EGG SEPARATOR Left knee, 3 view History: Pain There is no evidence of fracture or dislocation or joint effusion Procedure Note Tal Garner MD - 06/21/2015 Left knee, 3 view History: Pain There is no evidence of fracture or dislocation or joint effusion Vero Valverde MD DIAGNOSTIC IMAGING O RDERABLES * HEMOGLOBIN A1C (HgbA1C) (06/14/2015 2:15 PM EGG SEPARATOR) Hemoglobin A1c 5.3 4.8 - 5.6 % [facility] INSURANCE BILL Comment: . Pre-diabetes: 5.7 - 6.4 Diabetes: >6.4 Glycemic control for adults with diabetes: <7.0 Whole blood specimen (specimen) BLOOD SPECIMEN WITH EDTA / Unknown 06/14/2015 2:15 PM EGG SEPARATOR 06/14/2015 4:11 PM EGG SEPARATOR Narrative Resulting Agency Comment [facility] [address] [id number] Angie Sung MD LAB - CHEMISTRY LIZZY LEPE [facility] INSURANCE BILL * VAGINITIS PLUS (BV CA CT NG TRICH) (PO REF) (06/14/2015 2:05 PM EGG SEPARATOR) Atopobium vaginae Low - 0 Score [facility] ACCOUNT BILL BVAB 2 Low - 0 Score [facility] ACCOUNT BILL Megashaera Low - 0 Score [facility] ACCOUNT BILL Comment: Calculate total score by adding the 3 individual bacterial vaginosis (BV) marker scores together. Total score is interpreted as follows: . Total score 0-1: Indicates the absence of BV. Total score 2: Indeterminate for BV. Additional clinical data should be evaluated to establish a diagnosis. Total score 3-6: Indicates the presence of BV. . This test was developed and its performance characteristics determined by [facility]. It has not been cleared or approved by the Food and Drug Administration. The FDA has determined that such clearance or approval is not necessary. Luisana albicans PO Negative Negative [facility] ACCOUNT BILL Luisana glabrata PO Negative Negative [facility] ACCOUNT BILL Comment: This test was developed and its performance characteristics determined by [facility]. It has not been cleared or approved by the Food and Drug Administration. The FDA has determined that such clearance or approval is not necessary. Trichomonas vaginalis by PO Negative Negative [facility] ACCOUNT BILL Chlamydia Trachomatis PO Negative Negative [facility] ACCOUNT BILL GC PO Negative Negative [facility] ACCOUNT BILL ENTIRE VAGINA / Unknown 06/14/2015 2:05 PM EGG SEPARATOR 06/14/2015 9:03 PM EGG SEPARATOR Narrative Resulting Agency Comment [facility] [address] [id number] Angie Sung MD LAB - MICROBIOLOGY O RDERABLES Performing Organization Address City/[facility]/ZIP Co de Phone Number [facility] ACCOUNT BILL * XR KNEE 4+ VW RIGHT (12/10/2014) Anatomical Region Laterality Modality Lower Extremity Other Angie Sung MD DIAGNOSTIC IMAGING O RDERABLES * CULTURE STREP GROUP A (02/18/2014) Only the most recent of2 resultswithin the time period is included. Miscellaneous samples (specimen) Emergency Physician LAB - MICROBIOLOGY O RDERABLES [facility] ACCOUNT BILL * (ABNORMAL) TISSUE TRANSGLUTAMINASE AB IGA (03/19/2013 9:29 AM EGG SEPARATOR) Tissue Transglutaminase (tTG) Ab, IgA 148(H) 0 - 19 Units 03/20/2013 12:38 PM EGG SEPARATOR [email or web address] Comment: INTERPRETIVE INFORMATION: Tissue Transglutaminase (tTG) Antibody, [...] BLOOD SPECIMEN / Unknown 03/19/2013 9:29 AM EGG SEPARATOR 03/19/2013 9:48 AM EGG SEPARATOR Alondra Walls MD LAB - SEROLOGY ORDER [facility] [address] [place] [address] * IGA BLOOD (03/19/2013 9:29 AM EGG SEPARATOR) IgA 161 65 - 421 mg/dL 03/19/2013 10:12 AM EGG SEPARATOR [facility] Blood BLOOD SPECIMEN / Unknown 03/19/2013 9:29 AM EGG SEPARATOR 03/19/2013 9:48 AM EGG SEPARATOR Alondra Walls MD LAB - CHEMISTRY ORDE [facility] [place] [address] * (ABNORMAL) VITAMIN D 25-HYDROXY (03/19/2013 9:28 AM EGG SEPARATOR) Vitamin D, 25 Hydroxy 15.87(L) 30 - 100 ng/mL 03/19/2013 4:29 PM EGG SEPARATOR [facility] Blood BLOOD SPECIMEN / Unknown 03/19/2013 9:28 AM EGG SEPARATOR 03/19/2013 9:48 AM EGG SEPARATOR Narrative [facility] - 03/19/2013 4:29 PM EGG SEPARATOR Vitamin D Status: Deficiency <20 ng/mL Insufficiency 20-30 ng/mL Sufficiency 30-100 ng/mL Toxicity >100 ng/mL Alondra Walls MD LAB - CHEMISTRY LIZZY LEPE [facility] [address] [place] [address] * HELICOBACTER PYLORI UREASE (03/19/2013 9:17 AM EGG SEPARATOR) Helicobacter pylori Urease Initial Negative Negative 03/20/2013 10:27 AM EGG SEPARATOR [facility] Helicobacter pylori Urease Final Negative Negative 03/20/2013 10:27 AM [facility] Microbiology GASTRIC ANTRAL BIOPSY SPECIMEN / Unknown 03/19/2013 9:17 AM EGG SEPARATOR 03/19/2013 9:48 AM EGG SEPARATOR Alondra Walls MD LAB - MICROBIOLOGY O JOSIAS Performing Organization Address City/[facility]/ZIP Co de Phone Number [facility] [address] [place] [address] * GROSS + MICRO EXAM (STL) (03/19/2013 9:15 AM [facility]) Case Report Surgical Pathology Report Case: [id number] Authorizing Provider: Alondra Walls MD Ordering Provider: Alondra Walls MD Ordering Location: ENDOSCOPY SERVICES Collected: 03/19/2013 9:15 AM Pathologist: Harpreet Jj MD Received: 03/19/2013 9:55 AM Signed Out: 03/24/2013 10:11 AM (Addend, F) 03/20/2013 10:26 PM (Final) Specimens: A) - Duodenum B) - Stomach C) - Esophagus, Mid D) - Esophagus, Distal 03/24/2013 10:11 AM [facility] Addendum 1 D) 1 GMS. GMS staining of the esophagus biopsy is negative for fungi. (DB/scs) 03/24/2013 10:11 AM [facility] Addendum electronically signed by Harpreet Jj MD on 03/24/2013 at 12:41 PM Final Diagnosis A) SMALL INTESTINE, DUODENUM, BIOPSY: - MILD ACTIVE ENTERITIS WITH MODERATE VILLOUS BLUNTING AND INTRAEPITHELIAL LYMPHOCYTOSIS (SEE COMMENT). B) STOMACH, BIOPSY: - NO PATHOLOGIC DIAGNOSIS. C) ESOPHAGUS, MID, BIOPSY: - NO PATHOLOGIC DIAGNOSIS. D) ESOPHAGUS, DISTAL, BIOPSY: - ESOPHAGITIS, MILD. COMMENT: The duodenal findings correlate to a modified Morales score of 3B. The duodenal findings, though consistent with celiac disease, are not specific for celiac disease and can be seen in other clinical settings including postenteritis enteropathy, immunodeficiency, autoimmune enteropathy, cow's milk and other dietary protein intolerance, bacterial overgrowth, and severe malnutrition. GMS staining of specimen D is pending and will be reported in an addendum. 03/24/2013 10:11 AM [facility] Clinical History The patient is a 17-year-old girl with weight loss and elevated celiac serology who underwent upper endoscopy. The findings were erythema, mild nodularity, and scalloping in the duodenum. 03/24/2013 10:11 AM [facility] Gross Description The specimens are received fixed in formalin in four containers for gross and microscopic examination. All containers are labeled with the patient's name, Brandy Gallardo. Specimen A, duodenum, consists of five soft, yellow-fontaine tissue fragments, 3 mm to 4 mm in greatest dimension. The specimen is submitted in toto as A1. Specimen B, stomach, consists of a 4 mm soft, yellow-fontaine tissue fragment, submitted in toto as B1. Specimen C, mid esophagus, consists of two 3 mm soft, abraham-pink tissue fragments, submitted in toto as C1. Specimen D, distal esophagus, consists of three 3 mm soft, abraham-pink tissue fragments, submitted in toto as D1. (CT/vr) 03/24/2013 10:11 AM [facility] Microscopic Description A) 3 H&E; B) 3 H&E; C)3 H&E; D) 3 H&E. Sections of specimen A show fragments of duodenal mucosa with moderate blunting of villi, intraepithelial lymphocytosis, expansion of the lamina propria by mixed inflammatory cells, and neutrophilic infiltration of occasional crypts and surface epithelium. No granulomata are present. Sections of specimen B show fragments of [...] intraepithelial eosinophils, and a few intraepithelial neutrophils. (DB/vr) 03/24/2013 10:11 AM [facility] Disclaimer The performance characteristics of all immunohistochemical and indirect immunofluorescence stains (if any) cited in this report were determined by the Histopathology Laboratory of [facility] (immunohistochemistry ) or the Histology Laboratory of [facility] (indirect immunofluorescence) in compliance with CLIA `88 regulations. Some of these tests rely on the use of analyte-specific reagents and are subject to specific labeling requirements by the FDA. Such tests were developed by the [facility] Laboratory of [facility] or the Histology Laboratory of [facility] and have not been cleared or approved by the FDA. The FDA has determined that such clearance or approval is not necessary. These tests are used for clinical purposes and should not be regarded as investigational or for research. This case has been personally reviewed and interpreted by the attending (teaching) pathologist. 03/24/2013 10:11 AM [facility] Synoptic Report 03/24/2013 10:11 AM [facility] Pathology/Cytology PART OF DUODENUM / Unknown 03/19/2013 9:15 AM [facility] 03/19/2013 9:55 AM [facility] Miscellaneous samples (specimen) ENTIRE STOMACH / Unknown 03/19/2013 9:15 AM EGG SEPARATOR 03/19/2013 9:55 AM EGG SEPARATOR Miscellaneous samples (specimen) REGION OF ESOPHAGUS / Unknown 03/19/2013 9:15 AM EGG SEPARATOR 03/19/2013 9:55 AM [facility] Miscellaneous samples (specimen) REGION OF ESOPHAGUS / Unknown 03/19/2013 9:15 AM [facility] 03/19/2013 9:55 AM EGG SEPARATOR Alondra Walls MD LAB - PATHOLOGY/CYTO LOGY ORDERABLES [facility] [address] [place] [address] * EGD (03/19/2013 8:53 AM EGG SEPARATOR) Report Endoscopy POC __ _ Patient Name: Brandy Gallardo Gender: Female Date of : 1995 Age: 17 Admit Type: Outpatient Attending MD: Alondra Walls, Order #: [id number] __ _ Procedure: Upper GI endoscopy Indications: Positive celiac serologies Providers: Alondra Walls Referring MD: Angie Sung Medicines: General Anesthesia Complications: No immediate complications. __ _ Procedure: After obtaining informed consent, the endoscope was passed under direct vision. Throughout the procedure, the patient's blood pressure, pulse, and oxygen saturations were monitored continuously. The Endoscope was introduced through the mouth, and advanced to the second part of duodenum. The upper GI endoscopy was accomplished without difficulty. The patient tolerated the procedure well. Findings: No gross lesions were noted in the entire esophagus. Biopsies were taken with a cold forceps for histology. Estimated blood loss was minimal. No gross lesions were noted in the entire examined stomach. Biopsies were taken with a cold forceps for Helicobacter pylori testing using a rapid urease test. Biopsies were taken with a cold forceps for histology. Estimated blood loss was minimal. No gross lesions were noted in the entire examined duodenum. Biopsies were taken with a cold forceps for histology. Estimated blood loss was minimal. Impression: - No gross lesions in esophagus. - No gross lesions in the stomach. - No gross lesions in duodenum. Recommendation: - Discharge patient to home (with parent). - Await pathology results. Procedure Code(s): --- Professional --- 68666, Upper gastrointestinal endoscopy including esophagus, stomach, and either the duodenum and/or jejunum as appropriate; with biopsy, single or multiple --- Technical --- 46630, Upper gastrointestinal endoscopy including esophagus, stomach, and either the duodenum and/or jejunum as appropriate; with biopsy, single or multiple Diagnosis Code(s): --- Professional --- 795.79, Other and unspecified nonspecific immunological findings --- Technical --- 795.79, Other and unspecified nonspecific immunological findings CPT (R) 2012 [employer]. All Rights Reserved. The codes documented in this report are preliminary and upon truck switcher review may be revised to meet current compliance requirements. Dr. Alondra Walls Alondra Walls, 03/19/2013 9:24 AM This report has been signed electronically. Number of Addenda: 0 Note Initiated On: 03/19/2013 8:53 AM Procedure Date: 03/19/2013 8:53:02 AM This report has been signed electronically. [facility] 03/19/2013 8:53 AM EGG SEPARATOR Narrative [facility] - 03/20/2013 1:27 PM EGG SEPARATOR Procedure Note Alondra Walls MD - 03/19/2013 10:19 AM CST Alondra Walls MD GI PROCEDURE ORDERAB LES [facility] [address] [place] [address] * HCG URINE QUALITATIVE - POCT (IP) FRANCIA (03/19/2013 8:00 AM EGG SEPARATOR) HCG Qual Urine Negative Negative [facility] POCT TESTING QC Verified YES Yes [facility] PO CT TESTING Urine specimen (specimen) URINE / Unknown 03/19/2013 8:00 AM EGG SEPARATOR Alondra Walls MD LAB - POINT OF CARE ORDERABLES [facility] POCT TESTING [address] [place] [address] * XR CHEST PA AND LATERAL(most commonly ordered) (03/04/2013 2:10 PM EGG SEPARATOR) Anatomical Region Laterality Modality Chest Radiographic Ashley ging 03/04/2013 2:12 PM EGG SEPARATOR Impressions 03/04/2013 2:13 PM EGG SEPARATOR No focal infiltrate. Narrative 03/04/2013 2:13 PM EGG SEPARATOR 2 views of the chest performed March [...] RDERABLES * MONONUCLEOSIS SCREEN (03/04/2013 1:19 PM EGG SEPARATOR) Mononucleosis Screen Negative Negative 03/04/2013 2:56 PM EGG SEPARATOR [facility] Blood BLOOD SPECIMEN / Unknown 03/04/2013 1:19 PM EGG SEPARATOR 03/04/2013 1:26 PM EGG SEPARATOR Meron Parada MD LAB - CHEMISTRY LIZZY LEPE [facility] [address] [place] [address] * (ABNORMAL) CBC W AUTO DIFFERENTIAL (03/04/2013 1:19 PM EGG SEPARATOR) Only the most recent of2 resultswithin the time period is included. Pathologist [facility] WBC 11.2(H) 4.5 - 11.0 x10^9/L 03/04/2013 1:35 PM [facility] RBC 4.52 4.10 - 5.10 x10^12/L 03/04/2013 1:35 PM [facility] Hemoglobin 12.7 12.0 - 16.0 gm/dL 03/04/2013 1:35 PM [facility] Hematocrit 38.0 36.0 - 47.0 % 03/04/2013 1:35 PM [facility] MCV 84.1 78.0 - 98.0 fl 03/04/2013 1:35 PM [facility] MCH 28.1 25.0 - 35.0 pg 03/04/2013 1:35 PM [facility] MCHC 33.4 31.0 - 37.0 gm/dL 03/04/2013 1:35 PM [facility] Platelet Count 328 100 - 400 x10^9/L 03/04/2013 1:35 PM [facility] RDW-CV 13.3 11.5 - 14.0 % 03/04/2013 1:35 PM [facility] MPV 10.7(H) 6.0 - 9.5 fl 03/04/2013 1:35 PM [facility] Hematology Reflex Status Manual Diff to follow 03/04/2013 1:35 PM [facility] Blood BLOOD SPECIMEN / Unknown 03/04/2013 1:19 PM EGG SEPARATOR 03/04/2013 1:26 PM EGG SEPARATOR Meron Parada MD LAB - HEMATOLOGY ORD ERABLES [facility] [address] [place] [address] * (ABNORMAL) COMPREHENSIVE METABOLIC PANEL (03/04/2013 1:19 PM EGG SEPARATOR) Only the most recent of3 resultswithin the time period is included. [facility] Glucose 85 70 - 105 mg/dL 03/04/2013 1:51 PM [facility] Sodium 141 136 - 145 mmol/L 03/04/2013 1:51 PM [facility] Potassium 3.7 3.5 - 5.1 mmol/L 03/04/2013 1:51 PM [facility] Chloride 106 98 - 107 mmol/L 03/04/2013 1:51 PM [facility] CO2 21 20 - 28 mmol/L 03/04/2013 1:51 PM [facility] Calcium 10.23 9.08 - 10.48 mg/dL 03/04/2013 1:51 PM [facility] Anion Gap 14 5 - 20 mmol/L 03/04/2013 1:51 PM [facility] BUN 11.4 5.3 - 18.7 mg/dL 03/04/2013 1:51 PM [facility] Creatinine 0.64 0.61 - 1.07 mg/dL 03/04/2013 1:51 PM [facility] eGFR by MDRD >60 mL/min/1.7 3m2 03/04/2013 1:51 PM [facility] Comment:eGFR calculations ar e not performed for children under 18 years old. eGFR by MDRD >60 mL/min/1.7 3m2 03/04/2013 1:51 PM [facility] Comment:eGFR calculations ar e not performed for children under 18 years old. Alkaline Phosphatase 84(L) 100 - 390 U/L 03/04/2013 1:51 PM [facility] ALT 14 8 - 65 U/L 03/04/2013 1:51 PM [facility] AST 17 3 - 35 U/L 03/04/2013 1:51 PM [facility] Protein Total 8.1 6.3 - 8.2 gm/dL 03/04/2013 1:51 PM [facility] Albumin 4.2 3.3 - 4.9 gm/dL 03/04/2013 1:51 PM [facility] Bilirubin Total 0.4 0.3 - 1.2 mg/dL 03/04/2013 1:51 PM [facility] Blood BLOOD SPECIMEN / Unknown 03/04/2013 1:19 PM EGG SEPARATOR 03/04/2013 1:30 PM [facility] Meron Parada MD LAB - CHEMISTRY ORDE [place]ERTH Performing Organization Address [facility] Co de Phone Number [facility] [address] [place] [address] * DIFFERENTIAL MANUAL (03/04/2013 1:19 PM EGG SEPARATOR) WBC Auto 11.2 x10^9/L 03/04/2013 2:45 PM [facility] Neutrophil % Manual 74 31 - 78 % 03/04/2013 2:45 PM [facility] Lymphocytes % Manual 16 13 - 54 % 03/04/2013 2:45 PM [facility] Monocytes % Manual 6 4 - 13 % 03/04/2013 2:45 PM [facility] Eosinophils % Manual 3 0 - 8 % 03/04/2013 2:45 PM [facility] Basophils % Manual 1 % 03/04/2013 2:45 PM [facility] Cells Counted 100 # cells 03/04/2013 2:45 PM [facility] Platelet Estimation Adequate platelets Normal, Adequate platelets 03/04/2013 2:45 PM [facility] RBC Morphology Normal 03/04/2013 2:45 PM [facility] WBC Morph Normal 03/04/2013 2:45 PM [facility] Blood BLOOD SPECIMEN / Unknown 03/04/2013 1:19 PM EGG SEPARATOR 03/04/2013 1:26 PM [facility] Meron Parada MD LAB - HEMATOLOGY ORD ERABLES Performing Organization Address [facility] Co de Phone Number [facility] [address] [place] [address] * (ABNORMAL) CELIAC DISEASE COMPREHENSIVE (12/24/2012 3:42 PM CDT) Antigliadin Antibody IgA 30(H) 0 - 19 units [facility] ACCOUNT BILL Comment: Negative 0 - 19 Weak Positive 20 - 30 Moderate to Strong Positive >30 Gliadin Deamidated Antibody IgG 64(H) 0 - 19 units [facility] ACCOUNT BILL Comment: Negative 0 - 19 Weak Positive 20 - 30 Moderate to Strong Positive >30 TTG Antibody IgA 84(H) 0 - 3 U/mL [facility] ACCOUNT BILL Comment: Negative 0 - 3 Weak Positive 4 - 10 Positive >10 . Tissue Transglutaminase (tTG) has been identified as the endomysial antigen. Studies have demonstr- ated that endomysial IgA antibodies have over 99% specificity for gluten sensitive enteropathy. TTG Antibody IgG 24(H) 0 - 5 U/mL [facility] ACCOUNT BILL Comment: Negative 0 - 5 Weak Positive 6 - 9 Positive >9 Endomysial Antibody IgA Positive (A) Negative [facility] ACCOUNT BILL IgA Quantitative 159 77 - 278 mg/dL [facility] ACCOUNT BILL BLOOD SPECIMEN / Unknown 12/24/2012 3:42 PM CDT 12/24/2012 6:08 PM CDT Narrative Resulting Agency Comment [facility] [phone] Angie Sung MD LAB - CHEMISTRY LIZZY LEPE Performing Organization Address [facility] de Phone Number [facility] ACCOUNT BILL * C-REACTIVE PROTEIN (CRP) (12/24/2012 3:42 PM CDT) C-Reactive Protein 1.2 0.0 - 4.9 mg/L [facility] ACCOUNT BILL Blood specimen (specimen) BLOOD SPECIMEN / Unknown 12/24/2012 3:42 PM CDT 12/24/2012 6:08 PM CDT Narrative Resulting Agency Comment [address] [phone] Angie Sung MD LAB - CHEMISTRY LIZZY LEPE Performing Organization Address [facility] de Phone Number [facility] ACCOUNT BILL * SED RATE AUTO (ESR) (12/24/2012 3:42 PM CDT) Only the most recent of2 resultswithin the time period is included. Erythrocyte Sedimentation Rate Westergren 7 0 - 32 mm/hr [facility] ACCOUNT BILL Blood specimen (specimen) BLOOD SPECIMEN / Unknown 12/24/2012 3:42 PM CDT 12/24/2012 6:08 PM CDT Narrative Resulting Agency Comment [facility] [phone] Angie Sung MD LAB - HEMATOLOGY ORD ERAKHANH [facility] ACCOUNT BILL * LIPASE BLOOD (12/24/2012 3:42 PM CDT) Lipase 25 0 - 59 U/L [facility] A CCOUNT BILL Blood specimen (specimen) BLOOD SPECIMEN / Unknown 12/24/2012 3:42 PM CDT 12/24/2012 6:08 PM CDT Narrative Resulting Agency Comment [facility] [address] [place] [phone] Angie Sung MD LAB - CHEMISTRY LIZZY LEPE Performing Organization Address [facility] de Phone Number [facility] ACCOUNT BILL * AMYLASE BLOOD (12/24/2012 3:42 PM CDT) Amylase 35 31 - 124 U/L [facility] ACCOUNT BILL Blood specimen (specimen) BLOOD SPECIMEN / Unknown 12/24/2012 3:42 PM CDT 12/24/2012 6:08 PM CDT Narrative Resulting Agency Comment [facility] [address] [facility] [phone] Angie Sung MD LAB - CHEMISTRY LIZZY LEPE Performing Organization Address [facility] de Phone Number [facility] ACCOUNT BILL * TSH (12/22/2012 3:06 PM CDT) Only the most recent of2 resultswithin the time period is included. TSH 2.340 0.450 - 4.500 uIU/mL [facility] ACCOUNT BILL Blood specimen (specimen) BLOOD SPECIMEN / Unknown 12/22/2012 3:06 PM CDT 12/22/2012 6:07 PM CDT Narrative Resulting Agency Comment [place] [id number] [facility] [phone] Angie Sung MD LAB - CHEMISTRY LIZZY LEPE Performing Organization Address City/[facility]/ZIP Co de Phone Number [facility] ACCOUNT BILL * T4 FREE (12/22/2012 3:06 PM CDT) Only the most recent of2 resultswithin the time period is included. T4 Free 1.28 0.93 - 1.60 ng/dL [facility] ACCOUNT BILL Blood specimen (specimen) BLOOD SPECIMEN / Unknown 12/22/2012 3:06 PM CDT 12/22/2012 6:07 PM CDT Narrative Resulting Agency Comment [facility] [phone] Angie Sung MD LAB - CHEMISTRY LIZZY LEPE [facility] ACCOUNT BILL * CALCIUM/CREAT RATIO URINE [...] 8:33 PM CDT Narrative Resulting Agency Comment [facility] [phone] Angie Sung MD LAB - URINE CHEMISTR Y ORDERABLES Performing Organization Address City/[facility]/ZIP Co de Phone Number [facility] ACCOUNT [...] Emergency Physician LAB - MICROBIOLOGY O RDERABLES [facility] ACCOUNT BILL * CULTURE THROAT (09/18/2010 2:34 PM CDT) Upper Respiratory Culture Final report [facility] ACCOUNT BILL Result 1 RRF [facility] ACCOUNT BILL Comment:Routine respiratory cuca ENTIRE PHARYNX / Unknown 09/18/2010 2:34 PM CDT 09/18/2010 11:04 PM CDT Narrative Resulting Agency Comment [facility] [address] [phone] Angie Sung MD LAB - MICROBIOLOGY O RDERABLES [facility] ACCOUNT BILL Care Teams Sheet Pile Hammer Operator Relationship Specialty Start Date End Date Jesus Avila MD [address] [place] [address] PCP - General 07/05/22
--- OUTSIDE RECORDS SUMMARY | 2024-06-15 01:29 | XMS_ITS | Clinical Summary ---
Author Organization [facility] Address [address] [place] [address] Care Team Providers Care Over Hauler Helper Name Role Phone Jesus Avila MD Primary Care Provider [phone] Source Comments [facility],non-owned Affiliates and Associated Physician Practices is amultiple site organization consisting of ambulatory clinics and hospital sitesin [place], [place], [place] and [place]. This disclosure is being madepursuant to the Care Everywhere program and may not contain all information available regarding this patient. Last updated 18.[facility] Allergies Active Allergy Reactions Criticality Noted Date [...] Comments Blood Pressure 127/80 07/05/2022 10:56 AM FISHER LOBSTER Pulse 93 07/05/2022 10:56 AM FISHER LOBSTER Temperature 37 C (98.6 F) 07/05/2022 10:56 AM FISHER LOBSTER Respiratory Rate 18 07/05/2022 10:56 AM FISHER LOBSTER Oxygen Saturation 100% 07/05/2022 10:56 AM FISHER LOBSTER Inhaled Oxygen Concentration - - Weight 68.9 kg (152 lb) 07/05/2022 10:56 AM FISHER LOBSTER Height 152.4 cm (5') 07/05/2022 10:56 AM FISHER LOBSTER Body Mass Index 29.69 07/05/2022 10:56 AM FISHER LOBSTER Plan of Treatment Health Maintenance Due Date [...] age to complete this topic Care Teams Over Hauler Helper Relationship Specialty Start Date End Date Jesus Avila MD [address] [place] [address] PCP - General 07/05/22
--- NOTE | 2024-06-15 06:58 | WPDHPUPDATE1 ---
History and Physical Update Update Date/Time: 06/15/24 06:58 History and Physical has been reviewed, including an updated exam of the patient. There are NO changes in the patient's condition. Risks, benefits, and alternatives have been discussed and questions answered. Patient agrees to proceed with suction D&C.
[2024-06-15] MEDS: LACTATED RINGERS 1,000 ML 30 ML IV CONT ×2 (10:00→13:21)
[2024-06-15] MEDS: DOXYCYCLINE HYCLATE 100 MG TABLET PO (10:20)
--- NOTE | 2024-06-15 11:18 | P.PNAN_ITS ---
Anes - Initial Pre Proc Eval Procedure: Operation Date: 06/15/24 11:30 Proposed Procedures p Suction Dilation and Curettage - Whitney Hinkle MD Date/Time: 06/15/24 11:18 Surgeon: Whitney Hinkle MD Pre Op Diagnosis: Missed Ab Patient Data Age: 28 Gender: F Height: 1.52 m Weight: 64.9 kg Last Vital Signs Temp 97.6 F 06/15/24 09:30 Pulse 87 06/15/24 09:30 Resp 14 06/15/24 09:30 BP 135/68 06/15/24 09:30 Pulse Ox 100 06/15/24 09:30 O2 Del Method Room Air 06/15/24 09:30 Allergies Allergy/AdvReac Type Severity Reaction Status Date / Time cephalexin (From Keflex) AdvReac Intermediate Vomiting Verified 06/15/24 10:21 gluten AdvReac Intermediate Gastrointestinal Verified 06/15/24 10:21 Upset prochlorperazine (From AdvReac Intermediate Palpitation Verified 06/15/24 10:21 Compazine) s chlorpheniramine (From AdvReac Mild Hives Verified 06/15/24 10:21 Donatussin) ciprofloxacin (From Cipro) AdvReac Mild Hives Verified 06/15/24 10:21 dextromethorphan (From AdvReac Mild Hives Verified 06/15/24 10:21 Donatussin) phenylephrine (From AdvReac Mild Hives Verified 06/15/24 10:21 Donatussin) Home Medications ?Medication ?Instructions ?Recorded ?Confirmed ?Type docosahexaenoic acid 200 mg 200 mg PO DAILY 04/13/24 06/11/24 History capsule ( DHA) ferrous sulfate 325 mg (65 mg 325 mg PO DAILY 04/13/24 06/11/24 History iron) tablet (FeroSul) doxylamine succinate 25 mg tablet 12.5 mg (1/2 x 25 mg) PO TID #90 05/26/24 06/11/24 Rx (Unisom (doxylamine)) tabs magnesium oxide 400 mg PO DAILY #90 caps 05/26/24 06/11/24 Rx ondansetron 4 mg disintegrating 4 mg PO Q6H PRN nausea and 05/26/24 06/11/24 Rx tablet vomiting #30 tabs pyridoxine (vitamin B6) 25 mg 25 mg PO TID #120 tabs 05/26/24 06/11/24 Rx tablet Patient hx anesthesia problems: none Family hx anesthesia problems: none Results Review: All pre-operative results and documents have been reviewed as part of the pre- operative evaluation. [facility] Past Medical History Medical History Suppression of menses Costochondritis Fibromyalgia Psoriasis Acute arthritis Anxiety Low ferritin level Arthralgia BMI 25.0-25.9,adult Eustachian tube dysfunction BMI 26.0-26.9,adult Hx of psoriatic arthritis BMI 24.0-24.9, adult BMI 22.0-22.9, adult Celiac disease Surgical History Surgical History H/O endoscopy Hx of cholecystectomy Family History Family History Father Hypertension Diabetes mellitus Obesity Mother Depression Thyroid cancer Thyroid disorder Sibling Thyroid disorder COVID-19 Hypertension Social History Social History Smoking status: Never smoker Second hand tobacco smoke exposure: No Alcohol intake: never Substance use: never Substance use type: does not use Do You Feel Safe in your Home?: Yes Lack of Transportation: No Lack of Food: Never True Current Housing: I Have Housing Concerned About Future Housing: No Difficulty Paying Gas/Electric Bills: No Difficulty Paying for Meds: No Currently Unemployed: No Education: Bachelor's Degree Difficulty w/ Childcare or Family Care: No Living arrangements: with family Occupation/Education: occupation 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 Celiac disease, fibromyalgia, hx of psoriatic arthritis. Informed Consent: The patient's anesthetic plan and its attendant risks and benefits were discussed with the patient/family/POA. Questions were solicited and answers provided to the satisfaction of the patient/family/POA.
[2024-06-15] MEDS: ACETAMINOPHEN 500 MG TABLET 1000 MG PO (11:26)
--- NOTE | 2024-06-15 12:36 | W.PM.PROC2 ---
Procedure Note - Detailed Date of Procedure 06/15/24 Pre-op Diagnosis Missed Ab Post-op Diagnosis Same Procedure Performed Suction D&C Surgeon Whitney Hinkle MD Anesthesia General (Mac converted to general) Findings Uterus sounded to 12cm; 1cm dilated, not bleeding noted. Good hemostasis at end of case. Description of Procedure Brandy was taken to the operating room where she was placed under sedation without complications. She was then prepped and draped in the usual sterile fashion in the dorsal lithotomy position with her legs in low Adilson stirrups. A time-out was performed and she received doxycycline 100mg PO pre-operatively and will get doxycycline 200mg PO post-operatively. A bivalve speculum was placed within the vagina where the cervix was easily identified. The anterior lip of the cervix was grasped with a single-tooth tenaculum and the uterus was gently sounded. The cervix was then serially dilated. She was having apneic events and anesthesia decided to proceed with endotracheal intubation which occurred without issue. A 9mm suction curettage was then gently placed within the uterine cavity until the fundus was reached. The suction was then applied and multiple passes were then made and products of conception were noted to be removed. A bedside US was performed and additional products still remained within the cavity. Additional passes were made and a large amount of products were removed. Another bedside US was performed and small amount of tissue remained. I then switched to an 7mm suction curettage and additional passes were made. A bedside US was then performed again and no additional products were noted and a thin stripe was seen. The cervix was noted to have clamped down. All instruments were removed from the vagina and I performed a bimanual massage. Good uterine tone and good hemostasis was then noted. Sponge, lap, instrument, and needle counts were correct at the end of the procedure. Patient was awoken from anesthesia and taken to recovery with plans of same-day discharge home. Estimated Blood Loss 200 (including POCs) IV Fluids 800 Pathology Yes (products of conception) Complications No immediate complications Condition Stable Disposition Same day [facility] Billing Surgery - Charge Forward: Surgery Billing
[2024-06-15] MEDS: DOXYCYCLINE HYCLATE 100 MG TABLET 200 MG PO (14:14)
== END 2024-06-15 14:41 | disposition home or self-care (01) ==
PROVIDERS: PCP Family Medicine; Visit Provider Obstetrics & Gynecology
PROC: (CPT 59820; principal; 2024-06-15 11:30)
DX: O02.1 Missed abortion (principal); F41.9 Anxiety disorder, unspecified; K90.0 Celiac disease; L40.50 Arthropathic psoriasis, unspecified; Z98.890 Other specified postprocedural states; Z90.49 Acquired absence of other specified parts of digestive tract; Z80.8 Family history of malignant neoplasm of other organs or systems
CPT/HCPCS: 59820; 76801; 88305; A9270; J0330; J1100; J2003; J2210; J2250; J2405; J2704; J3010; J7120

== ENCOUNTER 2024-07-09 17:34 | Outpatient (CLI) | payer OTHER, SELFPAY ==
--- OUTSIDE RECORDS SUMMARY | 2024-07-09 17:41 | XMS_ITS | Data Portability ---
Author Organization [place] - [facility] and S, [facility] Address [address] [place] [address] [place] [address] Assessment No assessment recorded. Plan of Treatment Reminders Order Date Submit Date Provider Last Modified By Organization Details Last Modified Time Details Appointments None recorded. Lab urinalysis , dipstick 2018 [email or web address] [facility], [address], [place], [address], 16:30:32 Referral None recorded. Procedures None recorded. Surgeries None recorded. Imaging None recorded. Medication Orders Bactrim DS 800 mg-160 mg tablet 2018 INTERFACE [facility][id number], [address] [facility], [place], [place], [phone], 9 16:30:48 phenazopyr idine 200 mg tablet 2018 INTERFACE [id number], [address] [facility], [place], [place], [phone], 9 16:30:48 Patient TargetsNo targets recorded. Patient InstructionsNo instructions recorded. Reason for Referral None Reported. Results Created Date Observation Date Name Description Value Unit Range Abnormal Flag Note LastModifiedBy Organization Detail LastModifiedTime 02/08/2002/07/2019 urina lysis , dipst ick Leukocytes 2+ Not Available [facility] [address], [place], [address], 02/07/2019 16:25:51 02/08/20 19 02/07/2019 urina lysis , dipst ick Nitrite positi ve Not Available [facility] [address], [place], [address], 02/07/2019 16:25:51 02/08/20 19 02/07/2019 urina lysis , dipst ick Urobilinogen 0.2 Not Available [facility] [address] [place] [address] [address], [place], [address], 02/07/2019 16:25:51 02/08/20 19 02/07/2019 urina lysis , dipst ick Protein Negati ve Not Available [facility] [address] [place] [address] [address], [place], [address], 02/07/2019 16:25:51 02/08/2002/07/2019 urina lysis , dipst ick pH 6.0 Not Available [facility] [address] [place] [address] [address], [place], [address], 02/07/2019 16:25:51 02/08/20 19 02/07/2019 urina lysis , dipst ick Blood 1+ Not Available [facility] [address] [place] [address] [address], [place], [address], 02/07/2019 16:25:51 02/08/20 19 02/07/2019 urina lysis , dipst ick Specific [place] 1.025 Not Available [facility] [address] [place] [address] [address], [place], [address], 02/07/2019 16:25:51 02/08/20 19 02/07/2019 urina lysis , dipst ick Ketone 1+ Not Available [facility] [address] [place] [address] [place], [place], [address], 02/07/2019 16:25:51 02/08/20 19 02/07/2019 urina lysis , dipst ick Bilirubin Negati ve Not Available [facility] [address] [facility], [place], [address], 02/07/2019 16:25:51 02/08/20 19 02/07/2019 urina lysis , dipst ick Glucose Negati ve Not Available [facility] [address] [place] [address], [place], [address], 02/07/2019 16:25:51 02/08/20 19 02/07/2019 urina lysis , dipst ick Appearance Turbid Not Available [facility] [address] [place] [address], [place], [address], 02/07/2019 16:25:51 02/08/20 19 02/07/2019 urina lysis , dipst ick Color Dark Yellow Not Available [facility] [address] [place] [address], [place], [address], 02/07/2019 16:25:51 Result Notes None recorded. Problems Name Problem SNOMED Code Status Onset Date Resolution Date Notes Provider Name and Address Organization Details Recorded Time Acute urinary tract infection 625924421 Active 019 Laurent Dye TAPE COATER-C [place], [place] - [facility] and S 9 16:28:08 Problem Notes None recorded. Medical Equipment None Reported. Allergies Allergen ID Allergen Name Allergen Category Reaction Reaction Severity Criticality Documentation Date Start Date Code Code System Note Provider Name and Address Organization Details Recorded Time 9373 chlorphen iramine / dextromet horphan / phenyleph rine medicatio n Not available Not available Not available 02/07/2019 51774 9 RxNorm Not Available Not Available Not [...] Updated DateTime 9 91 /min 97.7 [degF] 93051.8 6 g 152.4 cm 29.3 kg/m2 96 % 96 % 128 mm[Hg] 86 mm[Hg] Rebecca Karen [facility] and S 9 16:25:26 Social History None recorded. Functional Status None recorded. Mental Status None recorded. Family History Nothing Reported. Medical History No medical history recorded. Gynecological HistoryNo gynecological history recorded. Obstetrics History GPAL:G 0 P 0 0 0 0 Past Encounters Encounter ID Performer Location Encounter Start Date Encounter Closed Date Diagnosis/Indication Diagnosis SNOMED-CT Code Diagnosis ICD10 Code Diagnosis Note [id number] Laurent MELENDEZ [facility] [address] [place] [address] 02/07/2019 16:13:18 02/07/2019 16:48:34 Acute urinary tract infection 585838144 N39.0 Health Concerns Section Related Observation LastModified by Organization Detai ls LastModified Time None Recorded Concern Status LastModified by Organization Details LastModified Time None Recorded Advance Directives Directive None Recorded Payers Encounter Date Sequence Insurance Name Policy Number Policy Lange Covered Member ID Lange Member ID Guarantor Name 02/07/2019 2 [employer] - [employer] ( SUPPLEMENT) Jamari Bravo [id number] Brandy Bravo 02/07/2019 1 [facility] () Jamari Bravo [id number] Brandy Bravo Notes Date Note Type Note Provider Name and Address Organization Details Recorded Time 02/07/2019 text/html 23/f here with c/o dysuria, frequency, urgency, and suprapubic tenderness x4 days. Denies c/f/n/v/d. Laurent BURDEN-Celestino [facility] and S 02/07/2019 16:31:25 OBGyn Episode No OBEpisode recorded.
--- OUTSIDE RECORDS SUMMARY | 2024-07-09 17:41 | XMS_ITS | Clinical Summary ---
Author Organization [facility] Address [address] [place] [address] Care Team Providers Care Design Release Engineer Name Role Phone Jesus Avila MD Primary Care Provider [phone] Source Comments [facility],non-owned Affiliates and Associated Physician Practices is amultiple site organization consisting of ambulatory clinics and hospital sitesin [place], [place], [place] and [place]. This disclosure is being madepursuant to the Care Everywhere program and may not contain all information available regarding this patient. Last updated 18.[facility] Allergies Active Allergy Reactions Criticality Noted Date [...] Information Value Date Recorded Sex Assigned at Female 07/02/2024 1:19 PM FENCE INSTALLER HELPER Gender Identity Female 07/02/2024 1:19 PM FENCE INSTALLER HELPER Sexual Orientation Straight 07/02/2024 1: 19 PM FENCE INSTALLER HELPER Last Filed Vital Signs Vital Sign Reading Time Taken Comments Blood Pressure 127/80 07/05/2022 10:56 AM FENCE INSTALLER HELPER Pulse 93 07/05/2022 10:56 AM FENCE INSTALLER HELPER Temperature 37 C (98.6 F) 07/05/2022 10:56 AM FENCE INSTALLER HELPER Respiratory Rate 18 07/05/2022 10:56 AM FENCE INSTALLER HELPER Oxygen Saturation 100% 07/05/2022 10:56 AM FENCE INSTALLER HELPER Inhaled Oxygen Concentration - - Weight 68.9 kg (152 lb) 07/05/2022 10:56 AM FENCE INSTALLER HELPER Height 152.4 cm (5') 07/05/2022 10:56 AM FENCE INSTALLER HELPER Body Mass Index 29.69 07/05/2022 10:56 AM FENCE INSTALLER HELPER Plan of Treatment Health Maintenance Due Date [...] 06/02/1997, 08/1996, 03/17/1996, Additional history exists MENINGOCOCCAL GROUPS A/C/Y/W VACCINE Aged Out 11/25/2007 No longer eligible based on patient's age to complete this topic HPV VACCINE Completed 10/13/2010, 05/30, 04/10/2010 MENINGOCOCCAL (Group B) VACCINE SHARED DECISION-MAKING Aged Out No longer eligible based on patient's age to complete this topic PNEUMOCOCCAL VACCINE Aged Out No long er eligible based on patient's age to complete this topic Care Teams Design Release Engineer Relationship Specialty Start Date End Date Jesus Avila MD [address] [place] [address] PCP - General 07/05/22
--- OUTSIDE RECORDS SUMMARY | 2024-07-09 17:42 | XMS_ITS | Patient Health Summary ---
Author Organization [facility] Address [address] [place] [address] Care Team Providers Care Flight Test Supervisor Name Role Phone Jesus Avila MD Primary Care Provider [phone] Note from [facility],non-owned Affiliates and Associated Physician Practices is amultiple site organization consisting of ambulatory clinics and hospital sitesin [place], [place], [place] and [place]. This disclosure is being madepursuant to the Care Everywhere program and may not contain all information available regarding this patient. Last updated 18.[facility] Allergies * Donatussin(Urticaria) * Fish Allergy(Rash,Swelling) -Medium [...] Sex Assigned at Female 07/02/2024 1:19 PM BOTTLE WASHER Gender Identity Female 07/02/2024 1:19 PM BOTTLE WASHER Sexual Orientation Straight 07/02/2024 1: 19 PM BOTTLE WASHER Last Filed Vital Signs Vital Sign Reading Time Taken Comments Blood Pressure 127/80 07/05/2022 10:56 AM BOTTLE WASHER Pulse 93 07/05/2022 10:56 AM BOTTLE WASHER Temperature 37 C (98.6 F) 07/05/2022 10:56 AM BOTTLE WASHER Respiratory Rate 18 07/05/2022 10:56 AM BOTTLE WASHER Oxygen Saturation 100% 07/05/2022 10:56 AM BOTTLE WASHER Inhaled Oxygen Concentration - - Weight 68.9 kg (152 lb) 07/05/2022 10:56 AM BOTTLE WASHER Height 152.4 cm (5') 07/05/2022 10:56 AM BOTTLE WASHER Body Mass Index 29.69 07/05/2022 10:56 AM BOTTLE WASHER Procedures * PATHOLOGY/CYTOLOGY REPORT ORDER(Performed 07/05/2022) * [...] S / Unknown 09/27/2018 12:34 PM CDT Menard L Klostermann PYROMETER MECHANIC-COMPUTER FORENSIC SPECIALIST LAB - POINT OF CARE ORDERABLES * (ABNORMAL) CULTURE URINE (12/07/2016 4:14 PM CDT) Only the most recent of5 resultswithin the time period is included. Pathologist [facility] Urine Culture Routine Final report(A) [facility] ACCOUNT [...] CDT 12/07/2016 Narrative Resulting Agency Comment [facility] [address] [facility] [phone] Angie Sung MD LAB - MICROBIOLOGY O RDERABLES [facility] ACCOUNT BILL [address] [place] [address] * (ABNORMAL) URINALYSIS - POINT OF CARE (12/07/2016) Only the most recent of7 resultswithin the time period is included. Clarity UA POCT clear Color UA POCT yellow Leukocyte UA 2+ Negative Nitrite UA POCT + Negative Urobilinogen UA 0.0(A) 0.1 - 1.0 Protein UA POCT 0.1 Negative pH UA 5.0 5.0 - 8.0 pH units Blood UA 250 Negative Specific [place] UA POCT 1.020 1.002 - 1.030 Ketone [...] HANDS BILATERAL 2 VIEWS (06/21/2015 4:04 PM BOTTLE WASHER) Anatomical Region Laterality Modality Wrist / Hand, Upper Extremity Ra diographic Imaging 06/21/2015 4:08 PM BOTTLE WASHER Narrative 06/21/2015 4:56 PM BOTTLE WASHER BILATERAL HANDS, TWO VIEW History: Psoriatic arthritis. [...] ONE OR TWO VIEWS (06/21/2015 4:04 PM BOTTLE WASHER) Anatomical Region Laterality Modality Lower Extremity Radiographic Ashley ging 06/21/2015 4:07 PM BOTTLE WASHER Addenda Addendum by Tal Garner MD on 06/22/2015 11:14 AM BOTTLE WASHER TO X-RAY REPORT The examination was bilateral knees, four view. The osseous structures are normal. There is no evidence of fracture or dislocation. No joint effusion is present. There is no joint space narrowing or erosions. DIAGNOSIS: Normal examination. Edited by Abel Pack on 06/22/2015 10:51 AM Narrative 06/21/2015 4:08 PM BOTTLE WASHER Left knee, 3 view History: Pain There is no evidence of fracture or dislocation or joint effusion Procedure Note Tal Garner MD - 06/21/2015 Left knee, 3 view History: Pain There is no evidence of fracture or dislocation or joint effusion Vero Valverde MD DIAGNOSTIC IMAGING O RDERABLES * HEMOGLOBIN A1C (HgbA1C) (06/14/2015 2:15 PM BOTTLE WASHER) Hemoglobin A1c 5.3 4.8 - 5.6 % [facility] INSURANCE BILL Comment: . Pre-diabetes: 5.7 - 6.4 Diabetes: >6.4 Glycemic control for adults with diabetes: <7.0 Whole blood specimen (specimen) BLOOD SPECIMEN WITH EDTA / Unknown 06/14/2015 2:15 PM BOTTLE WASHER 06/14/2015 4:11 PM BOTTLE WASHER Narrative Resulting Agency Comment [facility] [address] [phone] Angie Sung MD LAB - CHEMISTRY LIZZY LEPE [facility] INSURANCE BILL * VAGINITIS PLUS (BV CA CT NG TRICH) (PO REF) (06/14/2015 2:05 PM BOTTLE WASHER) Atopobium vaginae Low - 0 Score LA [...] ENTIRE VAGINA / Unknown 06/14/2015 2:05 PM BOTTLE WASHER 06/14/2015 9:03 PM BOTTLE WASHER Narrative Resulting Agency Comment [facility] [address] [phone] Angie Sung MD LAB - MICROBIOLOGY O JOSIAS Performing Organization Address City/[facility] Co de Phone Number [facility] ACCOUNT BILL * XR KNEE 4+ VW RIGHT (12/10/2014) Anatomical Region Laterality Modality Lower Extremity Other Angie Sung MD DIAGNOSTIC IMAGING O RDGRETTA * CULTURE STREP GROUP A (02/18/2014) Only the most recent of2 resultswithin the time period is included. Miscellaneous samples (specimen) Emergency Physician LAB - MICROBIOLOGY O JOSIAS Performing Organization Address City/[facility]/ZIP Co de Phone Number [facility] ACCOUNT BILL * (ABNORMAL) TISSUE TRANSGLUTAMINASE AB IGA (03/19/2013 9:29 AM BOTTLE WASHER) Tissue Transglutaminase (tTG) Ab, IgA 148(H) 0 - 19 Units 03/20/2013 12:38 PM BOTTLE WASHER [facility] Comment: INTERPRETIVE INFORMATION: Tissue Transglutaminase (tTG) Antibody, [...] BLOOD SPECIMEN / Unknown 03/19/2013 9:29 AM BOTTLE WASHER 03/19/2013 9:48 AM BOTTLE WASHER Alondra Walls MD LAB - SEROLOGY ORDER [facility] [address] [place] [address] * IGA BLOOD (03/19/2013 9:29 AM BOTTLE WASHER) IgA 161 65 - 421 mg/dL 03/19/2013 10:12 AM BOTTLE WASHER [facility] Blood BLOOD SPECIMEN / Unknown 03/19/2013 9:29 AM BOTTLE WASHER 03/19/2013 9:48 AM BOTTLE WASHER Alondra Walls MD LAB [facility] [place] [address] * (ABNORMAL) VITAMIN D 25-HYDROXY (03/19/2013 9:28 AM BOTTLE WASHER) Vitamin D, 25 Hydroxy 15.87(L) 30 - 100 ng/mL 03/19/2013 4:29 PM [facility] Blood BLOOD SPECIMEN / Unknown 03/19/2013 9:28 AM BOTTLE WASHER 03/19/2013 9:48 AM BOTTLE WASHER Narrative [facility] - 03/19/2013 4:29 PM BOTTLE WASHER Vitamin D Status: Deficiency <20 ng/mL Insufficiency 20-30 ng/mL Sufficiency 30-100 ng/mL Toxicity >100 ng/mL Alondra Walls MD LAB - CHEMISTRY LIZZY LEPE Performing Organization Address City/[facility]/ZIP Co de Phone Number [facility] [address] [place] [address] * HELICOBACTER PYLORI UREASE (03/19/2013 9:17 AM BOTTLE WASHER) Helicobacter pylori Urease Initial Negative Negative 03/20/2013 10:27 AM BOTTLE WASHER [facility] Helicobacter pylori Urease Final Negative Negative 03/20/2013 10:27 AM [facility] Microbiology GASTRIC ANTRAL BIOPSY SPECIMEN / Unknown 03/19/2013 9:17 AM BOTTLE WASHER 03/19/2013 9:48 AM [facility] Alondra Walls MD LAB - MICROBIOLOGY O ROLYERAKHANH Performing Organization Address [facility]/ZIP Co de Phone Number [facility] [address] [place] [id number] * GROSS + MICRO EXAM (STL) (03/19/2013 9:15 AM [facility]) Case Report Surgical Pathology Report Case: [id number] Authorizing Provider: Alondra Walls MD Ordering Provider: Alondra Walls MD Ordering Location: ENDOSCOPY SERVICES Collected: 03/19/2013 9:15 AM Pathologist: Harpreet Jj MD Received: 03/19/2013 9:55 AM Signed Out: 03/24/2013 10:11 AM (Addend, F) 03/20/2013 10:26 PM (Final) Specimens: A) - Duodenum B) - Stomach C) - Esophagus, Mid D) - Esophagus, Distal 03/24/2013 10:11 AM BOTTLE WASHER [facility] Addendum 1 D) 1 GMS. GMS staining of the esophagus biopsy is negative for fungi. (DB/scs) 03/24/2013 10:11 AM [facility] Addendum electronically signed by Harpreet Jj [...] reported in an addendum. 03/24/2013 10:11 AM [facility] Clinical History The patient is a 17-year-old girl with weight loss and elevated celiac serology who underwent upper endoscopy. The findings were erythema, mild nodularity, and scalloping in the duodenum. 03/24/2013 10:11 AM [facility] Gross Description The specimens are received [...] toto as D1. (CT/vr) 03/24/2013 10:11 AM [facility] Microscopic Description A) 3 H&E; B) [...] few intraepithelial neutrophils. (DB/vr) 03/24/2013 10:11 AM [facility] Disclaimer The performance characteristics of all immunohistochemical and indirect immunofluorescence stains (if any) cited in this report were determined by the [facility] of [facility] (immunohistochemistry ) or the Histology Laboratory of [facility] (indirect immunofluorescence) in compliance with CLIA `88 regulations. Some of these tests rely on the use of analyte-specific reagents and are subject to specific labeling requirements by the FDA. Such tests were developed by the [facility] of [facility] or the [facility]ology Laboratory of [facility] and have not been cleared or approved by the FDA. The FDA has determined that such clearance or approval is not necessary. These tests are used for clinical purposes and should not be regarded as investigational or for research. This case has been personally reviewed and interpreted by the attending (teaching) pathologist. 03/24/2013 10:11 AM [facility] Synoptic Report 03/24/2013 10:11 AM [facility] Pathology/Cytology PART OF DUODENUM / Unknown 03/19/2013 9:15 AM [facility] 03/19/2013 9:55 AM [facility] Miscellaneous samples (specimen) ENTIRE STOMACH / Unknown 03/19/2013 9:15 AM [facility] 03/19/2013 9:55 AM BOTTLE WASHER Miscellaneous samples (specimen) REGION OF ESOPHAGUS / Unknown 03/19/2013 9:15 AM BOTTLE WASHER 03/19/2013 9:55 AM [facility] Miscellaneous samples (specimen) REGION OF ESOPHAGUS / Unknown 03/19/2013 9:15 AM [facility] 03/19/2013 9:55 AM BOTTLE WASHER Alondra Walls MD LAB - PATHOLOGY/CYTO LOGY ORDERABLES Performing Organization Address City/State/[facility] Co de Phone Number [facility] [address] [place] [address] * EGD (03/19/2013 8:53 AM BOTTLE WASHER) Report Endoscopy POC __ _ Patient Name: Brandy Gallardo Gender: Female Date of : 1995 Age: 17 Admit Type: Outpatient Attending MD: Alondra Walls, Order #: [id number] __ _ Procedure: Upper GI endoscopy Indications: [...] pathology results. Procedure Code(s): --- Professional --- 54778, Upper gastrointestinal endoscopy including esophagus, stomach, and either the duodenum and/or jejunum as appropriate; with biopsy, single or multiple --- Technical --- 77037, Upper gastrointestinal endoscopy including esophagus, stomach, and either the duodenum and/or jejunum as appropriate; with biopsy, single or multiple Diagnosis Code(s): --- Professional --- 795.79, Other and unspecified nonspecific immunological findings --- Technical --- 795.79, Other and unspecified nonspecific immunological findings CPT (R) 2012 [employer]. All Rights Reserved. The codes documented in this report are preliminary and upon machine leather trimmer review may be revised to meet current compliance requirements. Dr. Alondra Walls Alondra Walls, 03/19/2013 9:24 AM This report has been signed electronically. Number of Addenda: 0 Note Initiated On: 03/19/2013 8:53 AM Procedure Date: 03/19/2013 8:53:02 AM This report has been signed electronically. [facility] 03/19/2013 8:53 AM BOTTLE WASHER Narrative [facility] - 03/20/2013 1:27 PM BOTTLE WASHER Procedure Note Alondra Walls MD - 03/19/2013 10:19 AM CST Alondra Walls MD GI PROCEDURE ORDERAB LES [facility] [address] [place] [address] * HCG URINE QUALITATIVE - POCT (IP) BEAKER (03/19/2013 8:00 AM BOTTLE WASHER) HCG Qual Urine Negative Negative [facility] POCT TEST[facility] QC Verified YES Yes [facility] PO CT TESTING Urine specimen (specimen) URINE / Unknown 03/19/2013 8:00 AM BOTTLE WASHER Alondra Walls MD LAB - POINT OF CARE ORDERABLES Performing Organization Address City/State/[facility] Co de Phone Number [facility] [address] [place] [address] * XR CHEST PA AND LATERAL(most commonly ordered) (03/04/2013 2:10 PM BOTTLE WASHER) Anatomical Region Laterality Modality Chest Radiographic Ashley ging 03/04/2013 2:12 PM BOTTLE WASHER Impressions 03/04/2013 2:13 PM BOTTLE WASHER No focal infiltrate. Narrative 03/04/2013 2:13 PM BOTTLE WASHER 2 views of the chest performed March [...] RDERABLES * MONONUCLEOSIS SCREEN (03/04/2013 1:19 PM BOTTLE WASHER) Mononucleosis Screen Negative Negative 03/04/2013 2:56 PM BOTTLE WASHER [facility] Blood BLOOD SPECIMEN / Unknown 03/04/2013 1:19 PM BOTTLE WASHER 03/04/2013 1:26 PM BOTTLE WASHER Meron Parada MD LAB - CHEMISTRY LIZZY LEPE Performing Organization Address City/[facility]/ZIP Co de Phone Number [facility] [address] [place] [address] * (ABNORMAL) CBC W AUTO DIFFERENTIAL (03/04/2013 1:19 PM BOTTLE WASHER) Only the most recent of2 resultswithin the time period is included. [facility] Signature WBC 11.2(H) 4.5 - 11.0 x10^9/L 03/04/2013 1:35 PM [facility] RBC 4.52 4.10 - 5.10 x10^12/L 03/04/2013 1:35 PM [facility] Hemoglobin 12.7 12.0 - 16.0 gm/dL 03/04/2013 1:35 PM [facility] Hematocrit 38.0 36.0 - 47.0 % 03/04/2013 1:35 PM [facility] MCV 84.1 78.0 - 98.0 fl 03/04/2013 1:35 PM [facility] MCH 28.1 25.0 - 35.0 pg 03/04/2013 1:35 PM [facility] MCHC 33.4 31.0 - 37.0 gm/dL 03/04/2013 1:35 PM [facility] Platelet Count 328 100 - 400 x10^9/L 03/04/2013 1:35 PM [facility] RDW-CV 13.3 11.5 - 14.0 % 03/04/2013 1:35 PM [facility] MPV 10.7(H) 6.0 - 9.5 fl 03/04/2013 1:35 PM [facility] Hematology Reflex Status Manual Diff to follow 03/04/2013 1:35 PM [facility] Blood BLOOD SPECIMEN / Unknown 03/04/2013 1:19 PM BOTTLE WASHER 03/04/2013 1:26 PM BOTTLE WASHER Meron Parada MD LAB - HEMATOLOGY ORD GRETTA Performing Organization Address City/[facility]/ZIP Co de Phone Number [facility] [address] [place] [address] * (ABNORMAL) COMPREHENSIVE METABOLIC PANEL (03/04/2013 1:19 PM BOTTLE WASHER) Only the most recent of3 resultswithin the time period is included. [facility] Glucose 85 70 - 105 mg/dL 03/04/2013 1:51 PM [facility] Sodium 141 136 - 145 mmol/L 03/04/2013 1:51 PM [facility] Potassium 3.7 3.5 - 5.1 mmol/L 03/04/2013 1:51 PM [facility] Chloride 106 98 - 107 mmol/L 03/04/2013 1:51 PM [facility] CO2 21 20 - 28 mmol/L 03/04/2013 1:51 PM [facility] Calcium 10.23 9.08 - 10.48 mg/dL 03/04/2013 1:51 PM [facility] Anion Gap 14 5 - 20 mmol/L 03/04/2013 1:51 PM [facility] BUN 11.4 5.3 - 18.7 mg/dL 03/04/2013 1:51 PM [facility] Creatinine 0.64 0.61 - 1.07 mg/dL 03/04/2013 1:51 PM [facility] eGFR by MDRD >60 mL/min/1.7 3m2 03/04/2013 1:51 PM [facility] Comment:eGFR calculations ar e not performed for children under 18 years old. eGFR by MDRD >60 mL/min/1.7 3m2 03/04/2013 1:51 PM [facility] Comment:eGFR calculations ar e not performed for children under 18 years old. Alkaline Phosphatase 84(L) 100 - 390 U/L 03/04/2013 1:51 PM [facility] ALT 14 8 - 65 U/L 03/04/2013 1:51 PM [facility] AST 17 3 - 35 U/L 03/04/2013 1:51 PM [facility] Protein Total 8.1 6.3 - 8.2 gm/dL 03/04/2013 1:51 PM [facility] Albumin 4.2 3.3 - 4.9 gm/dL 03/04/2013 1:51 PM [facility] Bilirubin Total 0.4 0.3 - 1.2 mg/dL 03/04/2013 1:51 PM [facility] Blood BLOOD SPECIMEN / Unknown 03/04/2013 1:19 PM [facility] 03/04/2013 1:30 PM BOTTLE WASHER Meron Parada MD LAB - CHEMISTRY ORDE RABSHANAE Performing Organization Address [facility] Co de Phone Number [facility] [address] [place] [address] * DIFFERENTIAL MANUAL (03/04/2013 1:19 PM BOTTLE WASHER) WBC Auto 11.2 x10^9/L 03/04/2013 2:45 PM [facility] Neutrophil % Manual 74 31 - 78 % 03/04/2013 2:45 PM [facility] Lymphocytes % Manual 16 13 - 54 % 03/04/2013 2:45 PM [facility] Monocytes % Manual 6 4 - 13 % 03/04/2013 2:45 PM [facility] Eosinophils % Manual 3 0 - 8 % 03/04/2013 2:45 PM [facility] Basophils % Manual 1 % 03/04/2013 2:45 PM [facility] Cells Counted 100 # cells 03/04/2013 2:45 PM [facility] Platelet Estimation Adequate platelets Normal, Adequate platelets 03/04/2013 2:45 PM [facility] RBC Morphology Normal 03/04/2013 2:45 PM [facility] WBC Morph Normal 03/04/2013 2:45 PM [facility] Blood BLOOD SPECIMEN / Unknown 03/04/2013 1:19 PM BOTTLE WASHER 03/04/2013 1:26 PM BOTTLE WASHER Meron Parada MD LAB - HEMATOLOGY ORD ERABLES Performing Organization Address [facility] Co de Phone Number [facility] [address] [place] [address] * (ABNORMAL) CELIAC DISEASE COMPREHENSIVE (12/24/2012 3:42 [...] 6:08 PM CDT Narrative Resulting Agency Comment [address] [phone] Angie Sung MD LAB - CHEMISTRY LIZZY LEPE Performing Organization Address City/[facility] Co de Phone Number [facility] ACCOUNT BILL * C-REACTIVE PROTEIN (CRP) (12/24/2012 3:42 PM CDT) C-Reactive Protein 1.2 0.0 - 4.9 mg/L [facility] ACCOUNT BILL Blood specimen (specimen) BLOOD SPECIMEN / Unknown 12/24/2012 3:42 PM CDT 12/24/2012 6:08 PM CDT Narrative Resulting Agency Comment [address] [phone] Angie Sung MD LAB - CHEMISTRY LIZZY LEPE [facility] ACCOUNT BILL * SED RATE AUTO (ESR) (12/24/2012 3:42 PM CDT) Only the most recent of2 resultswithin the time period is included. Erythrocyte Sedimentation Rate Westergren 7 0 - 32 mm/hr [facility] ACCOUNT BILL Blood specimen (specimen) BLOOD SPECIMEN / Unknown 12/24/2012 3:42 PM CDT 12/24/2012 6:08 PM CDT Narrative Resulting Agency Comment [address] [phone] Angie Sung MD LAB - HEMATOLOGY ORD GRETTA [facility] ACCOUNT BILL * LIPASE BLOOD (12/24/2012 3:42 PM CDT) Lipase 25 0 - 59 U/L [facility] A CCOUNT BILL Blood specimen (specimen) BLOOD SPECIMEN / Unknown 12/24/2012 3:42 PM CDT 12/24/2012 6:08 PM CDT Narrative Resulting Agency Comment [facility] [address] [facility] [phone] Angie Sung MD LAB - CHEMISTRY LIZZY LEPE Performing Organization Address [facility] Co de Phone Number [facility] ACCOUNT BILL * AMYLASE BLOOD (12/24/2012 3:42 PM CDT) Amylase 35 31 - 124 U/L [facility] ACCOUNT BILL Blood specimen (specimen) BLOOD SPECIMEN / Unknown 12/24/2012 3:42 PM CDT 12/24/2012 6:08 PM CDT Narrative Resulting Agency [facility] [address] [facility] [phone] Angie Sung MD LAB - CHEMISTRY LIZZY LEPE Performing Organization Address [facility] de Phone Number [facility] ACCOUNT BILL * TSH (12/22/2012 3:06 PM CDT) Only the most recent of2 resultswithin the time period is included. TSH 2.340 0.450 - 4.500 uIU/mL [facility] ACCOUNT BILL Blood specimen (specimen) BLOOD SPECIMEN / Unknown 12/22/2012 3:06 PM CDT 12/22/2012 6:07 PM CDT Narrative Resulting Agency Comment [facility] [id number] [facility] [phone] Angie Sung MD LAB - CHEMISTRY LIZZY LEPE [facility] ACCOUNT BILL * T4 FREE (12/22/2012 3:06 PM CDT) Only the most recent of2 resultswithin the time period is included. T4 Free 1.28 0.93 - 1.60 ng/dL [facility] ACCOUNT BILL Blood specimen (specimen) BLOOD SPECIMEN / Unknown 12/22/2012 3:06 PM CDT 12/22/2012 6:07 PM CDT Narrative Resulting Agency Comment [facility] [phone] Angie Sung MD LAB - CHEMISTRY ORDE RABLES Performing Organization Address City/[facility]/ZIP Co de Phone Number [facility] [...] 8:33 PM CDT Narrative Resulting Agency Comment [facility] [phone] Angie Sung MD LAB - URINE CHEMISTR Y ORDERABLES Performing Organization Address City/[facility]/ZIP Co de Phone Number [facility] [...] PM CDT Narrative Resulting Agency Comment [facility] [address] [phone] Angie Sung MD LAB - MICROBIOLOGY O RDERABLES [facility] ACCOUNT BILL Care Teams Flight Test Supervisor Relationship Specialty Start Date End Date Jesus Avila MD [address] [place] [address] PCP - General 07/05/22
--- OUTSIDE RECORDS SUMMARY | 2024-07-09 17:42 | XMS_ITS | Encounter Summary ---
Author Organization [facility] Health Address [address] [place] [address] Care Team Providers Care Concrete Floor Installer Name Role Phone Jesus Avila MD Primary Care Provider [phone] Encounter Details Date Type Department Care Team (Late st Contact Info) Description 02/26/2013 [facility] Outpatient Visit CG DEFAULT [address] [facility] [place] [address] Unknown, Provider Social History Tobacco Use Types Packs/Day Years Used Date Smoking Tobacco: Never Assessed Sex and Gender Information Value Date Recorded Sex Assigned at Female 07/02/2024 1:19 PM ELECTRON BEAM MACHINE WELDER SETTER Gender Identity Female 07/02/2024 1:19 PM ELECTRON BEAM MACHINE WELDER SETTER Sexual Orientation Straight 07/02/2024 1: 19 PM ELECTRON BEAM MACHINE WELDER SETTER documented as of this encounter Plan of Treatment Not on file documented as of this encounter Visit Diagnoses Not on filedocumented in this encounter Care Teams Concrete Floor Installer Relationship Specialty Start Date End Date Jesus Avila MD [address] [place] [address] PCP - General 07/05/22 documented as of this encounter
--- OUTSIDE RECORDS SUMMARY | 2024-07-09 17:42 | XMS_ITS | Referral Summary ---
Author Organization [facility] Address [address] [place] [address] Care Team Providers Care Quality Control Chemist Name Role Phone Jesus Avila MD Primary Care Provider [phone] Source Comments [facility],non-owned Affiliates and Associated Physician Practices is amultiple site organization consisting of ambulatory clinics and hospital sitesin [place], [place], [place] and [place]. This disclosure is being madepursuant to the Care Everywhere program and may not contain all information available regarding this patient. Last updated 18.[facility] Allergies Active Allergy Reactions Criticality Noted Date [...] Sex Assigned at Female 07/02/2024 1:19 PM FORM SETTER STEEL FORMS Gender Identity Female 07/02/2024 1:19 PM FORM SETTER STEEL FORMS Sexual Orientation Straight 07/02/2024 1: 19 PM FORM SETTER STEEL FORMS Last Filed Vital Signs Vital Sign Reading Time Taken Comments Blood Pressure 127/80 07/05/2022 10:56 AM FORM SETTER STEEL FORMS Pulse 93 07/05/2022 10:56 AM FORM SETTER STEEL FORMS Temperature 37 C (98.6 F) 07/05/2022 10:56 AM FORM SETTER STEEL FORMS Respiratory Rate 18 07/05/2022 10:56 AM FORM SETTER STEEL FORMS Oxygen Saturation 100% 07/05/2022 10:56 AM FORM SETTER STEEL FORMS Inhaled Oxygen Concentration - - Weight 68.9 kg (152 lb) 07/05/2022 10:56 AM FORM SETTER STEEL FORMS Height 152.4 cm (5') 07/05/2022 10:56 AM FORM SETTER STEEL FORMS Body Mass Index 29.69 07/05/2022 10:56 AM FORM SETTER STEEL FORMS Plan of Treatment Not on file Administered Medications Care Teams Quality Control Chemist Relationship Specialty Start Date End Date Jesus Avila MD [address] [place] [address] PCP - General 07/05/22
--- OUTSIDE RECORDS SUMMARY | 2024-07-09 17:42 | XMS_ITS | Clinical Summary ---
Author Organization [facility] Address [address] [place] [address] Care Team Providers Care Shipmaster Name Role Phone Jesus Avila MD Primary Care Provider [phone] Allergies Active Allergy Reactions Criticality Noted Date Comments Cewsshclqogpi-Mcthdtari-Oh Hives Prochlorperazine Other (see comment) 11/14/2020 Increased Heart Rate Gluten Meal Diarrhea 11/13/2020 Cephalexin Vomiting Medium 11/13/2020 Medications No known medications Active Problems Problem Noted Date Diagnosed Date Pyelonephritis 11/13/2020 Celiac disease ([facility]) 02/22/2015 GERD without esophagitis 04/11/2010 Migraine 04/11/2010 [...] 12:25 AM 11/15/2020 1:32 PM Care Teams Shipmaster Relationship Specialty Start Date End Date Jesus Avila MD [address] [place] [address] PCP - General FAMILY PRACTICE 11/24/20
[2024-07-09 18:17] LABS: Beta HCG Quantitative 8.46 mIU/ML
== END 2024-07-09 17:35 | disposition home or self-care (01) ==
LOC: ANHLAB 17:35
PROVIDERS: PCP Family Medicine; Visit Provider Obstetrics & Gynecology
DX: O02.1 Missed abortion (principal)
CPT/HCPCS: 36415; 84702

== ENCOUNTER 2024-07-18 09:49 | Outpatient (CLI) | payer OTHER, SELFPAY ==
--- OUTSIDE RECORDS SUMMARY | 2024-07-18 09:52 | XMS_ITS | Data Portability ---
Author Organization [place] - [facility] and S, [facility] Address [address] [place] [address] [place] [address] Assessment No assessment recorded. Plan of Treatment Reminders Order Date Submit Date Provider Last Modified By Organization Details Last Modified Time Details Appointments None recorded. Lab urinalysis , dipstick 2018 [email or web address] [facility], [address], [place], [address], 16:30:32 Referral None recorded. Procedures None recorded. Surgeries None recorded. Imaging None recorded. Medication Orders Bactrim DS 800 mg-160 mg tablet 2018 INTERFACE [facility][id number], [address], [place], [place], [id number], 9 16:30:48 phenazopyr idine 200 mg tablet 2018 [facility]FACE [id number], [address], [place], [place], [phone], 9 16:30:48 Patient TargetsNo targets recorded. Patient InstructionsNo instructions recorded. Reason for Referral None Reported. Results Created Date Observation Date Name Description Value Unit Range Abnormal Flag Note LastModifiedBy Organization Detail LastModifiedTime 02/08/2002/07/2019 urina lysis , dipst ick Leukocytes 2+ Not Available [facility] [address], [place], [address], 02/07/2019 16:25:51 02/08/20 19 02/07/2019 urina lysis , dipst ick Nitrite positi ve Not Available [facility] [address], [place], [address], 02/07/2019 16:25:51 02/08/20 19 02/07/2019 urina lysis , dipst ick Urobilinogen 0.2 Not Available [facility] [address] [place] [address] [place], [place], [address], 02/07/2019 16:25:51 02/08/20 19 02/07/2019 urina lysis , dipst ick Protein Negati ve Not Available [facility] [address] [place] [address] [place], [place], [address], 02/07/2019 16:25:51 02/08/2002/07/2019 urina lysis , dipst ick pH 6.0 Not Available [facility] [address] [place] [address] [place], [place], [address], 02/07/2019 16:25:51 02/08/20 19 02/07/2019 urina lysis , dipst ick Blood 1+ Not Available [facility] [address] [place] [address] [place], [place], [address], 02/07/2019 16:25:51 02/08/20 19 02/07/2019 urina lysis , dipst ick Specific [place] 1.025 Not Available [facility] [address] [place] [address] [place], [place], [address], 02/07/2019 16:25:51 02/08/20 19 02/07/2019 urina lysis , dipst ick Ketone 1+ Not Available [facility] [address] [place] [address] [place], [place], [address], 02/07/2019 16:25:51 02/08/20 19 02/07/2019 urina lysis , dipst ick Bilirubin Negati ve Not Available [facility] [address], [place], [address], 02/07/2019 16:25:51 02/08/20 19 02/07/2019 urina lysis , dipst ick Glucose Negati ve Not Available [facility] [address] [place] [address], [place], [address], 02/07/2019 16:25:51 02/08/20 19 02/07/2019 urina lysis , dipst ick Appearance Turbid Not Available [facility] [address] [place] [address], [place], [address], 02/07/2019 16:25:51 02/08/20 19 02/07/2019 urina lysis , dipst ick Color Dark Yellow Not Available [facility] [address] [place] [address], [place], [address], 02/07/2019 16:25:51 Result Notes None recorded. Problems Name Problem SNOMED Code Status Onset Date Resolution Date Notes Provider Name and Address Organization Details Recorded Time Acute urinary tract infection 246475597 Active 019 Laurent Dye ANIMAL RESCUER-C [place], [place] - [facility] and S 9 16:28:08 Problem Notes None recorded. Medical Equipment None Reported. Allergies Allergen ID Allergen Name Allergen Category Reaction Reaction Severity Criticality Documentation Date Start Date Code Code System Note Provider Name and Address Organization Details Recorded Time 9373 chlorphen iramine / dextromet horphan / phenyleph rine medicatio n Not available Not available Not available 02/07/2019 15915 9 RxNorm Not Available Not Available Not [...] Updated DateTime 9 91 /min 97.7 [degF] 03087.8 6 g 152.4 cm 29.3 kg/m2 96 % 96 % 128 mm[Hg] 86 mm[Hg] Rebecca Karen [facility] and S 9 16:25:26 Social History None recorded. Functional Status None recorded. Mental Status None recorded. Family History Nothing Reported. Medical History No medical history recorded. Gynecological HistoryNo gynecological history recorded. Obstetrics History GPAL:G 0 P 0 0 0 0 Past Encounters Encounter ID Performer Location Encounter Start Date Encounter Closed Date Diagnosis/Indication Diagnosis SNOMED-CT Code Diagnosis ICD10 Code Diagnosis Note [id number] Laurent MELENDEZ [facility] [address] [place] [address] 02/07/2019 16:13:18 02/07/2019 16:48:34 Acute urinary tract infection 729605821 N39.0 Health Concerns Section Related Observation LastModified by Organization Detai ls LastModified Time None Recorded Concern Status LastModified by Organization Details LastModified Time None Recorded Advance Directives Directive None Recorded Payers Encounter Date Sequence Insurance Name Policy Number Policy Lange Covered Member ID Lange Member ID Guarantor Name 02/07/2019 2 [employer] - [employer] INSURANCE ( SUPPLEMENT) Jamari Bravo [id number] Brandy Bravo 02/07/2019 1 [facility] [employer] - PRIME () Jamari Bravo [id number] Brandy Bravo Notes Date Note Type Note Provider Name and Address Organization Details Recorded Time 02/07/2019 text/html 23/f here with c/o dysuria, frequency, urgency, and suprapubic tenderness x4 days. Denies c/f/n/v/d. Laurent BURDEN-Celestino [facility] and S 02/07/2019 16:31:25 OBGyn Episode No OBEpisode recorded.
--- OUTSIDE RECORDS SUMMARY | 2024-07-18 09:53 | XMS_ITS | Encounter Summary ---
Author Organization [facility] Address [address] [place] [address] Care Team Providers Care Banbury Mixer Operator Name Role Phone Jesus Avila MD Primary Care Provider Encounter Details Date Type Department Care Team (Late st Contact Info) Description 02/26/2013 [facility] Outpatient Visit CG DEFAULT [address] [facility] [place] [address] Unknown, Provider Social History Tobacco Use Types Packs/Day Years Used Date Smoking Tobacco: Never Assessed Sex and Gender Information Value Date Recorded Sex Assigned at Female 07/02/2024 1:19 PM BRAILLE TYPIST Gender Identity Female 07/02/2024 1:19 PM BRAILLE TYPIST Sexual Orientation Straight 07/02/2024 1: 19 PM BRAILLE TYPIST documented as of this encounter Plan of Treatment Not on file documented as of this encounter Visit Diagnoses Not on filedocumented in this encounter Care Teams Banbury Mixer Operator Relationship Specialty Start Date End Date Jesus Avila MD [address] [place] [address] PCP - General 07/05/22 documented as of this encounter
--- OUTSIDE RECORDS SUMMARY | 2024-07-18 09:53 | XMS_ITS | Clinical Summary ---
Author Organization [facility] Address [address] [place] [address] Care Team Providers Care Photocopying Machine Operator Name Role Phone Jesus Avila MD Primary Care Provider [phone] Allergies Active Allergy Reactions Criticality Noted Date Comments Wchsiraoyszmc-Kihcopbar-Xn Hives Prochlorperazine Other (see comment) 11/14/2020 Increased Heart Rate Gluten Meal Diarrhea 11/13/2020 Cephalexin Vomiting Medium 11/13/2020 Medications No known medications Active Problems Problem Noted Date Diagnosed Date Pyelonephritis 11/13/2020 Celiac disease ([facility]) 02/22/2015 GERD without esophagitis 04/11/2010 Migraine [...] 12:25 AM 11/15/2020 1:32 PM Care Teams Photocopying Machine Operator Relationship Specialty Start Date End Date Jesus Avila MD [address] [place] [address] PCP - General FAMILY PRACTICE 11/24/20
--- OUTSIDE RECORDS SUMMARY | 2024-07-18 09:53 | XMS_ITS | Clinical Summary ---
Author Organization [facility] Address [address] [place] [address] Care Team Providers Care Dry Pan Operator Name Role Phone Jesus Avila MD Primary Care Provider [phone] Source Comments [facility],non-owned Affiliates and Associated Physician Practices is amultiple site organization consisting of ambulatory clinics and hospital sitesin [place], [place], [place] and [place]. This disclosure is being madepursuant to the Care Everywhere program and may not contain all information available regarding this patient. Last updated 18.[facility] Allergies Active Allergy Reactions Criticality [...] Sex Assigned at Female 07/02/2024 1:19 PM SHEET ROCK SANDER Gender Identity Female 07/02/2024 1:19 PM SHEET ROCK SANDER Sexual Orientation Straight 07/02/2024 1: 19 PM SHEET ROCK SANDER Last Filed Vital Signs Vital Sign Reading Time Taken Comments Blood Pressure 127/80 07/05/2022 10:56 AM SHEET ROCK SANDER Pulse 93 07/05/2022 10:56 AM SHEET ROCK SANDER Temperature 37 C (98.6 F) 07/05/2022 10:56 AM SHEET ROCK SANDER Respiratory Rate 18 07/05/2022 10:56 AM SHEET ROCK SANDER Oxygen Saturation 100% 07/05/2022 10:56 AM SHEET ROCK SANDER Inhaled Oxygen Concentration - - Weight 68.9 kg (152 lb) 07/05/2022 10:56 AM SHEET ROCK SANDER Height 152.4 cm (5') 07/05/2022 10:56 AM SHEET ROCK SANDER Body Mass Index 29.69 07/05/2022 10:56 AM SHEET ROCK SANDER Plan of Treatment Health Maintenance Due Date [...] age to complete this topic Care Teams Dry Pan Operator Relationship Specialty Start Date End Date Jesus Avila MD [address] [place] [address] PCP - General 07/05/22
[2024-07-18 10:16] LABS: Alanine Aminotransferase 21 U/L (6-35); Albumin Level 4.5 g/dL (3.5-5.1); Alkaline Phosphatase 50 U/L (38-126); Anion Gap 10 mmol/L (4-12); Aspartate Amino Transferase 23 U/L (14-36); Bilirubin,Total 0.7 mg/dL (0.2-1.3); Blood Urea Nitrogen 11 mg/dL (7-17); Calcium 9.5 mg/dL (8.4-10.2); Carbon Dioxide 23 mmol/L (22-30); Chloride 106 mmol/L (98-107); Estimated Glomerular Filt Rate > 60; Glucose 91 mg/dL (65-110); Potassium 4.2 mmol/L (3.4-5.0); Sodium 139 mmol/L (137-145)
[2024-07-18 10:35] LABS: Beta HCG Quantitative 4.37 mIU/ML
== END 2024-07-18 09:50 | disposition home or self-care (01) ==
LOC: ANHLAB 09:50
PROVIDERS: PCP Family Medicine; Visit Provider Obstetrics & Gynecology
DX: O02.1 Missed abortion (principal); K90.0 Celiac disease
CPT/HCPCS: 36415; 80053; 84702

== ENCOUNTER 2024-07-26 17:09 | Emergency (ER) | payer OTHER, SELFPAY ==
--- OUTSIDE RECORDS SUMMARY | 2024-07-26 17:10 | XMS_ITS | Data Portability ---
Author Organization [place] - [facility] and S, [facility] Address [address] [place] [address] [place] [address] Assessment No assessment recorded. Plan of Treatment Reminders Order Date Submit Date Provider Last Modified By Organization Details Last Modified Time Details Appointments None recorded. Lab urinalysis , dipstick 2018 [email or web address] [facility], [address], [place], [address], 16:30:32 Referral None recorded. Procedures None recorded. Surgeries None recorded. Imaging None recorded. Medication Orders Bactrim DS 800 mg-160 mg tablet 2018 INTERFACE [facility][id number], [address], [place], [place], [phone], 9 16:30:48 phenazopyr idine 200 mg tablet 2018 INTERFACE [facility]24029, [address], [place], [place], [phone], 9 16:30:48 Patient TargetsNo targets recorded. Patient InstructionsNo instructions recorded. Reason for Referral None Reported. Results Created Date Observation Date Name Description Value Unit Range Abnormal Flag Note LastModifiedBy Organization Detail LastModifiedTime 02/08/2002/07/2019 urina lysis , dipst ick Leukocytes 2+ Not Available [facility] [address], [place], [address], 02/07/2019 16:25:51 02/08/20 19 02/07/2019 urina lysis , dipst ick Nitrite positi ve Not Available [facility] [address], [place], [address], 02/07/2019 16:25:51 02/08/20 19 02/07/2019 urina lysis , dipst ick Urobilinogen 0.2 Not Available [facility] [address] [place] [address] [place], [place], [address], 02/07/2019 16:25:51 02/08/20 19 02/07/2019 urina lysis , dipst ick Protein Negati ve Not Available [facility] [address] [place] [address] [place], [place], [address], 02/07/2019 16:25:51 02/08/2002/07/2019 urina lysis , dipst ick pH 6.0 Not Available [facility] [address] [place] [address] [place], [place], [address], 02/07/2019 16:25:51 02/08/20 19 02/07/2019 urina lysis , dipst ick Blood 1+ Not Available [facility] [address] [place] [address] [place], [place], [address], 02/07/2019 16:25:51 02/08/20 19 02/07/2019 urina lysis , dipst ick Specific [place] 1.025 Not Available [facility] [address] [place] [address] [place], [place], [address], 02/07/2019 16:25:51 02/08/20 19 02/07/2019 urina lysis , dipst ick Ketone 1+ Not Available [facility] [address] [place] [address] [place], [place], [address], 02/07/2019 16:25:51 02/08/20 19 02/07/2019 urina lysis , dipst ick Bilirubin Negati ve Not Available [facility] [address], [place], [address], 02/07/2019 16:25:51 02/08/20 19 02/07/2019 urina lysis , dipst ick Glucose Negati ve Not Available [facility] [address] [place] [address], [place], [address], 02/07/2019 16:25:51 02/08/20 19 02/07/2019 urina lysis , dipst ick Appearance Turbid Not Available [facility] [address] [place] [address], [place], [address], 02/07/2019 16:25:51 02/08/20 19 02/07/2019 urina lysis , dipst ick Color Dark Yellow Not Available [facility] [address] [place] [address], [place], [address], 02/07/2019 16:25:51 Result Notes None recorded. Problems Name Problem SNOMED Code Status Onset Date Resolution Date Notes Provider Name and Address Organization Details Recorded Time Acute urinary tract infection 732220258 Active 019 Laurent Dye CLINIC DIRECTOR-C [place], [place] - [facility] and S 9 16:28:08 Problem Notes None recorded. Medical Equipment None Reported. Allergies Allergen ID Allergen Name Allergen Category Reaction Reaction Severity Criticality Documentation Date Start Date Code Code System Note Provider Name and Address Organization Details Recorded Time 9373 chlorphen iramine / dextromet horphan / phenyleph rine medicatio n Not available Not available Not available 02/07/2019 88695 9 RxNorm Not Available Not Available Not [...] Updated DateTime 9 91 /min 97.7 [degF] 88409.8 6 g 152.4 cm 29.3 kg/m2 96 % 96 % 128 mm[Hg] 86 mm[Hg] Rebecca Karen [facility] and S 9 16:25:26 Social History None recorded. Functional Status None recorded. Mental Status None recorded. Family History Nothing Reported. Medical History No medical history recorded. Gynecological HistoryNo gynecological history recorded. Obstetrics History GPAL:G 0 P 0 0 0 0 Past Encounters Encounter ID Performer Location Encounter Start Date Encounter Closed Date Diagnosis/Indication Diagnosis SNOMED-CT Code Diagnosis ICD10 Code Diagnosis Note [id number] Laurent MELENDEZ [facility] [address] [place] [address] 02/07/2019 16:13:18 02/07/2019 16:48:34 Acute urinary tract infection 663205452 N39.0 Health Concerns Section Related Observation LastModified by Organization Detai ls LastModified Time None Recorded Concern Status LastModified by Organization Details LastModified Time None Recorded Advance Directives Directive None Recorded Payers Encounter Date Sequence Insurance Name Policy Number Policy Lange Covered Member ID Lange Member ID Guarantor Name 02/07/2019 2 [employer] - [employer] INSURANCE ( SUPPLEMENT) Jamari Bravo [id number] Brandy Bravo 02/07/2019 1 [facility] TRI[employer] - PRIME () Jamari Bravo [id number] Brandy Bravo Notes Date Note Type Note Provider Name and Address Organization Details Recorded Time 02/07/2019 text/html 23/f here with c/o dysuria, frequency, urgency, and suprapubic tenderness x4 days. Denies c/f/n/v/d. Laurent BURDEN-Celestino [facility] and S 02/07/2019 16:31:25 OBGyn Episode No OBEpisode recorded.
--- OUTSIDE RECORDS SUMMARY | 2024-07-26 17:11 | XMS_ITS | Clinical Summary ---
Author Organization [facility] Address [address] [place] [address] Care Team Providers Care Application Services Manager Name Role Phone Jesus Avial MD Primary Care Provider [phone] Allergies Active Allergy Reactions Criticality Noted Date Comments Xzuoqyiacmimr-Slbcmnuoy-Fi Hives Prochlorperazine Other (see comment) 11/14/2020 Increased Heart Rate Gluten Meal Diarrhea 11/13/2020 Cephalexin Vomiting Medium 11/13/2020 Medications No known medications Active Problems Problem Noted Date Diagnosed Date Pyelonephritis 11/13/2020 [facility] disease ([facility]) 02/22/2015 GERD without esophagitis 04/11/2010 Migraine 04/11/2010 [...] history exists COVID-19 Vaccine ( season) 2023 Hepatitis B Vaccines Completed 06/03/1996, 01/14/1996, 1995 [...] independently General No Carolann Zhou, RN Insurance [address] [place] [id number] [facility] Advance Directives * Full Code (Latest Code Status on File) Date Activated Date Inactivated Comments 11/14/2020 12:25 AM 11/15/2020 1:32 PM Care Teams Application Services Manager Relationship Specialty Start Date End Date Jesus Avila MD [address] [place] [address] PCP - General FAMILY PRACTICE 11/24/20
--- OUTSIDE RECORDS SUMMARY | 2024-07-26 17:11 | XMS_ITS | Clinical Summary ---
Author Organization [facility] Address [address] [facility] [place] [address] Care Team Providers Care Human Resources Supervisor Name Role Phone Jesus Avila MD Primary Care Provider [phone] [facility],non-owned Affiliates and Associated Physician Practices is amultiple site organization consisting of ambulatory clinics and hospital sitesin [place], [place], [place] and [place]. This disclosure is being madepursuant to the Care Everywhere program and may not contain all information available regarding this patient. Last updated 18.[facility] Allergies Active Allergy Reactions Criticality [...] Sex Assigned at Female 07/02/2024 1:19 PM TEST DESKMAN Gender Identity Female 07/02/2024 1:19 PM TEST DESKMAN Sexual Orientation Straight 07/02/2024 1: 19 PM TEST DESKMAN Last Filed Vital Signs Vital Sign Reading Time Taken Comments Blood Pressure 127/80 07/05/2022 10:56 AM TEST DESKMAN Pulse 93 07/05/2022 10:56 AM TEST DESKMAN Temperature 37 C (98.6 F) 07/05/2022 10:56 AM TEST DESKMAN Respiratory Rate 18 07/05/2022 10:56 AM TEST DESKMAN Oxygen Saturation 100% 07/05/2022 10:56 AM TEST DESKMAN Inhaled Oxygen Concentration - - Weight 68.9 kg (152 lb) 07/05/2022 10:56 AM TEST DESKMAN Height 152.4 cm (5') 07/05/2022 10:56 AM TEST DESKMAN Body Mass Index 29.69 07/05/2022 10:56 AM TEST DESKMAN Plan of Treatment Health Maintenance Due Date [...] age to complete this topic Care Teams Human Resources Supervisor Relationship Specialty Start Date End Date Jesus Avila MD [address] [place] [address] PCP - General 07/05/22
--- OUTSIDE RECORDS SUMMARY | 2024-07-26 17:11 | XMS_ITS | Encounter Summary ---
Author Organization [facility] Health Address [address] [place] [address] Care Team Providers Care Motel Keeper Name Role Phone Jesus Avila MD Primary Care Provider Encounter Details Date Type Department Care Team (Late st Contact Info) Description 02/26/2013 [facility] Outpatient Visit CG DEFAULT [address] [place] [address] Unknown, Provider Social History Tobacco Use Types Packs/Day Years Used Date Smoking Tobacco: Never Assessed Sex and Gender Information Value Date Recorded Sex Assigned at Female 07/02/2024 1:19 PM FIRE PATROLLER Gender Identity Female 07/02/2024 1:19 PM FIRE PATROLLER Sexual Orientation Straight 07/02/2024 1: 19 PM FIRE PATROLLER documented as of this encounter Plan of Treatment Not on file documented as of this encounter Visit Diagnoses Not on filedocumented in this encounter Care Teams Motel Keeper Relationship Specialty Start Date End Date Jesus Avila MD [address] [place] [address] PCP - General 07/05/22 documented as of this encounter
--- NOTE | 2024-07-26 17:14 | ED.GENADULT ---
HPI - General Adult General Chief complaint: Upper Respiratory Infection Stated complaint: sinus Time Seen by Provider: 07/26/24 17:14 Source: patient Mode of arrival: ambulatory Limitations: no limitations History of Present Illness HPI narrative: 28-year-old female patient presents to the [facility] with complaints of cold symptoms for the past 6 days. Patient states she has had a runny congestion nose. Some fullness to bilateral ears and a little bit of pain underneath the left eye. Denies fevers, body aches or chills. Denies coughing, chest pain or shortness of breath. Patient states she has been taking [id number] DayQuil for her symptoms. Related Data Home Medications ?Medication ?Instructions ?Recorded ?Confirmed ?Last Taken ?Type docosahexaenoic acid 200 mg 200 mg PO DAILY 04/13/24 06/11/24 Unknown History capsule ( DHA) ferrous sulfate 325 mg (65 mg 325 mg PO DAILY 04/13/24 06/11/24 Unknown History iron) tablet (FeroSul) Allergies Allergy/AdvReac Type Severity Reaction Status Date / Time chlorpheniramine (From Allergy Mild Hives Verified 07/26/24 17:20 Donatussin) ciprofloxacin (From Cipro) Allergy Mild Hives Verified 07/26/24 17:20 dextromethorphan (From Allergy Mild Hives Verified 07/26/24 17:20 Donatussin) phenylephrine (From Allergy Mild Hives Verified 07/26/24 17:20 Donatussin) cephalexin (From Keflex) AdvReac Intermediate Vomiting Verified 07/26/24 17:20 gluten AdvReac Intermediate Gastrointestinal Verified 07/26/24 17:20 Upset prochlorperazine (From AdvReac Intermediate Palpitation Verified 07/26/24 17:20 Compazine) s Review of Systems Review of Systems: CONSTITUTIONAL: Denies fever, chills, or sweats. EYES: Denies visual changes, redness, or discharge. ENT: Positive rhinorrhea, congestion, denies sore throat, positive bilateral otalgia. CARDIOVASCULAR: Denies chest pain, palpitations, or edema. RESPIRATORY: Denies cough or dyspnea. GASTROINTESTINAL: Denies abdominal pain, nausea, vomiting, or diarrhea. GENITOURINARY: Denies dysuria or hematuria. SKIN: Denies rash or itching. MUSCULOSKELETAL: Denies back pain, joint pain, or myalgia. NEUROLOGIC: Denies headache, numbness, or weakness. PSYCHIATRIC: Denies anxiety or depression. [facility] Past Medical History Medical History Suppression of menses Costochondritis Fibromyalgia Psoriasis Acute arthritis Anxiety Low ferritin level Arthralgia BMI 25.0-25.9,adult Eustachian tube dysfunction BMI 26.0-26.9,adult Hx of psoriatic arthritis BMI 24.0-24.9, adult BMI 22.0-22.9, adult Celiac disease Surgical History Surgical History H/O dilation and curettage 06/15/2024 suction d&c H/O endoscopy Hx of cholecystectomy Family History Family History Father Hypertension Diabetes mellitus Obesity Mother Depression Thyroid cancer Thyroid disorder Sibling Thyroid disorder COVID-19 Hypertension Social History Social History Smoking status: Never smoker Second hand tobacco smoke exposure: No Alcohol intake: never Substance use: never Substance use type: does not use Do You Feel Safe in your Home?: Yes Lack of Transportation: No Lack of Food: Never True Current Housing: I Have Housing Concerned About Future Housing: No Difficulty Paying Gas/Electric Bills: No Difficulty Paying for Meds: No Currently Unemployed: No Education: Bachelor's Degree Difficulty w/ Childcare or Family Care: No Living arrangements: with family Occupation/Education: occupation 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 There is no relevant family history pertinent to the presenting complaint. Exam Narrative: GENERAL: Well-appearing, well-nourished, and in no acute distress. HEAD: Normocephalic, atraumatic. EYES: PERRLA and EOMI. ENT: Nares with erythema edema noted bilateral, no rhinorrhea or epistaxis. Mucous membranes moist. posterior pharynx with no erythema, tonsillar enlargement, exudates or lesions present. Fluid noted behind bilateral TMs. No erythema or bulging present. NECK: Supple. No lymphadenopathy CHEST: Clear to auscultation. No respiratory distress. HEART: Regular rate and rhythm. No murmur heard. Normal peripheral pulses. ABDOMEN: Soft, nontender, nondistended, normal active bowel sounds. EXTREMITIES: Normal range of motion. No edema. SKIN: Warm, dry, no rash. NEURO: No focal deficits. Alert and oriented x3. Course Course Level of Care: Express Care Visit Vital Signs Vital signs: Vital Signs Temperature 36.9 C 07/26/24 17:20 Pulse Rate 88 07/26/24 17:20 Respiratory Rate 18 07/26/24 17:20 Blood Pressure 136/78 07/26/24 17:20 Pulse Oximetry 100 07/26/24 17:20 Oxygen Delivery Room Air 07/26/24 17:20 Temperature 36.9 C 07/26/24 17:20 Pulse Rate 88 07/26/24 17:20 Respiratory Rate 18 07/26/24 17:20 Blood Pressure 136/78 07/26/24 17:20 Pulse Oximetry 100 07/26/24 17:20 Oxygen Delivery Room Air 07/26/24 17:20 vital signs reviewed. Medical Decision Making MDM Narrative Medical decision making narrative: Discussed with patient all of her point of care testing today is negative. Discussed with her that the fact that she is not running any fevers or has any cough shortness of breath is reassuring. Discussed with her this is most likely allergies and highly recommend that she takes a daily antihistamine and Flonase to help with the symptoms I will also prescribe short course of steroids to help with inflammation and to dry up the drainage. Patient verbalized understanding denies any other questions or concerns at this Differential Diagnosis Differential Diagnosis: Differential diagnosis: Allergic rhinitis, chronic sinusitis, tonsillitis, acute sinusitis, infectious mononucleosis, seasonal influenza, pertussis, diphtheria, meningococcal disease, viral syndrome, viral bronchitis, RSV, COVID-19 Vital Signs Vital Signs: Vital Signs Temperature 36.9 C 07/26/24 17:20 Pulse Rate 88 07/26/24 17:20 Respiratory Rate 18 07/26/24 17:20 Blood Pressure 136/78 07/26/24 17:20 Pulse Oximetry 100 07/26/24 17:20 Oxygen Delivery Room Air 07/26/24 17:20 Temperature 36.9 C 07/26/24 17:20 Pulse Rate 88 07/26/24 17:20 Respiratory Rate 18 07/26/24 17:20 Blood Pressure 136/78 07/26/24 17:20 Pulse Oximetry 100 07/26/24 17:20 Oxygen Delivery Room Air 07/26/24 17:20 Lab Data Labs: Lab Results 07/26/24 Range/Units 17:42 POC Influenza A Ag Negative (Negative) POC Influenza B Ag Negative (Negative) POC SARS CoV-2 Ag Negative (Negative) POC Grp A Strep Screen Negative (Negative) Critical Care Time Critical Care Time Critical Care Time: No Discharge Plan Discharge Clinical Impression: Acute viral sinusitis Allergic rhinitis Qualifiers: Allergic rhinitis trigger: unspecified Allergic rhinitis seasonality: seasonal Qualified Code(s): J30.2 - Other seasonal allergic rhinitis Patient Disposition: Home, Self-Care Condition: Stable Instructions: Antibiotic Form, Allergies (ED) Additional Instructions: Viral illness may last between 7-12days; antibiotic is NOT recommended at this time. Recommend antihistamine such as Benadryl at night time and Claritin/Zyrtec/Karla during the day Cough syrup may cause drowsiness; avoid driving or take it at night time. take oral steroids in the morning with food. Also, recommend symptomatic treatment includes: rest, fluids, and increase humidity of the air at home. Recommend Acetaminophen or nonsteroidal anti-inflammatory agents (NSAIDs) as directed in the bottle to reduce fever and/pain/headache. Avoid smoking/second-hand smoke. Limit visits to areas with large crowds. Please schedule a follow-up visit with your personal physician for further evaluation and treatment within 3-5days. Including recheck and discussion of your blood pressure. If your symptoms persist, change or worsen significantly before you can contact your personal physician then please, without delay, go to the emergency department for further evaluation. Patient Language: Zimbabwean Prescriptions: New prednisone 20 mg tablet 20 mg PO DAILY 5 Days Qty: 5 0RF No Action ondansetron 4 mg tablet,disintegrating 4 mg PO Q6H PRN (Reason: nausea and vomiting) Qty: 30 2RF pyridoxine (vitamin B6) 25 mg tablet 25 mg PO TID Qty: 120 1RF magnesium oxide 400 mg magnesium capsule 400 mg PO DAILY Qty: 90 2RF Unisom (doxylamine) 25 mg tablet 12.5 mg PO TID Qty: 90 1RF ferrous sulfate [FeroSul] 325 mg (65 mg iron) tablet 325 mg PO DAILY DHA 200 mg capsule 200 mg PO DAILY acetaminophen 500 mg tablet 1,000 mg PO TID Qty: 60 0RF ibuprofen 800 mg tablet 800 mg PO TID Qty: 30 0RF Follow-up/Referrals: Jesus Avila MD [Primary Care Provider] - Time of Disposition: 17:50
[2024-07-26 17:20] VITALS: BP 136/78; PULSE 88; RESP 18; TEMP 36.9; O2SAT 100
[2024-07-26 17:44] LABS: EDCOVIDSCREEN Negative (Negative); EDINFLUASCREEN Negative (Negative); EDINFLUBSCREEN Negative (Negative); EDSTREPNEGPOS1 Negative (Negative)
== END 2024-07-26 17:52 | disposition home or self-care (01) ==
PROVIDERS: Emergency Provider Nurse Practitioner Family; PCP Family Medicine
DX: J01.90 Acute sinusitis, unspecified (principal); J30.2 Other seasonal allergic rhinitis; Z20.822 Contact with and (suspected) exposure to COVID-19; M79.7 Fibromyalgia; L40.9 Psoriasis, unspecified; L40.50 Arthropathic psoriasis, unspecified; K90.0 Celiac disease
CPT/HCPCS: 87081; 87426; 87804; 87880; 99213; G0463

== ENCOUNTER 2024-08-09 09:36 | Emergency (ER) | payer OTHER, SELFPAY ==
--- OUTSIDE RECORDS SUMMARY | 2024-08-09 09:39 | XMS_ITS | Data Portability ---
Author Organization [facility] S, [facility] Address [address] [place] [address] [place] [address] Assessment No assessment recorded. Plan of Treatment Reminders Order Date Submit Date Provider Last Modified By Organization Details Last Modified Time Details Appointments None recorded. Lab urinalysis , dipstick 2018 [email or web address] [facility], [address], [place], [address], 16:30:32 Referral None recorded. Procedures None recorded. Surgeries None recorded. Imaging None recorded. Medication Orders Bactrim DS 800 mg-160 mg tablet 2018 INTERFACE [facility] #[id number], [address], [place], [place], [phone], 9 16:30:48 phenazopyr idine 200 mg tablet 2018 [facility]FACE [id number], [address], [place], [place], [phone], 9 16:30:48 Patient TargetsNo targets recorded. Patient InstructionsNo instructions recorded. Reason for Referral None Reported. Results Created Date Observation Date Name Description Value Unit Range Abnormal Flag Note LastModifiedBy Organization Detail LastModifiedTime 02/08/2002/07/2019 urina lysis , dipst ick Leukocytes 2+ Not Available [facility] [address], [place], [address], 02/07/2019 16:25:51 02/08/20 19 02/07/2019 urina lysis , dipst ick Nitrite positi ve Not Available [facility] [address], [place], [address], 02/07/2019 16:25:51 02/08/20 19 02/07/2019 urina lysis , dipst ick Urobilinogen 0.2 Not Available [facility] [address] [place] [address] [address], [place], [address], 02/07/2019 16:25:51 02/08/20 19 02/07/2019 urina lysis , dipst ick Protein Negati ve Not Available [facility] [address] [place] [address] [place], [place], [address], 02/07/2019 16:25:51 02/08/2002/07/2019 urina lysis , dipst ick pH 6.0 Not Available [facility] [address] [place] [address] [place], [place], [address], 02/07/2019 16:25:51 02/08/20 19 02/07/2019 urina lysis , dipst ick Blood 1+ Not Available [facility] [address] [place] [address] [place], [place], [address], 02/07/2019 16:25:51 02/08/20 19 02/07/2019 urina lysis , dipst ick Specific [place] 1.025 Not Available [facility] [address] [place] [address] [place], [place], [address], 02/07/2019 16:25:51 02/08/20 19 02/07/2019 urina lysis , dipst ick Ketone 1+ Not Available [facility] [address] [place] [address] [place], [place], [address], 02/07/2019 16:25:51 02/08/20 19 02/07/2019 urina lysis , dipst ick Bilirubin Negati ve Not Available [facility] [address], [place], [address], 02/07/2019 16:25:51 02/08/20 19 02/07/2019 urina lysis , dipst ick Glucose Negati ve Not Available [facility] [address] [place] [address], [place], [address], 02/07/2019 16:25:51 02/08/20 19 02/07/2019 urina lysis , dipst ick Appearance Turbid Not Available [facility] [address] [place] [address], [place], [address], 02/07/2019 16:25:51 02/08/20 19 02/07/2019 urina lysis , dipst ick Color Dark Yellow Not Available [facility] [address] [place] [address], [place], [address], 02/07/2019 16:25:51 Result Notes None recorded. 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 Medical Equipment None Reported. Allergies Allergen ID Allergen Name Allergen Category Reaction Reaction Severity Criticality Documentation Date Start Date Code Code System Note Provider Name and Address Organization Details Recorded Time 9373 chlorphen iramine / dextromet horphan / phenyleph rine medicatio n Not available Not available Not available 02/07/2019 07442 9 RxNorm Not Available Not Available Not [...] Updated DateTime 9 91 /min 97.7 [degF] 04292.8 6 g 152.4 cm 29.3 kg/m2 96 % 96 % 128 mm[Hg] 86 mm[Hg] Rebecca Karen [facility] and S 9 16:25:26 Social History None recorded. Functional Status None recorded. Mental Status None recorded. Family History Nothing Reported. Medical History No medical history recorded. Gynecological HistoryNo gynecological history recorded. Obstetrics History GPAL:G 0 P 0 0 0 0 Past Encounters Encounter ID Performer Location Encounter Start Date Encounter Closed Date Diagnosis/Indication Diagnosis SNOMED-CT Code Diagnosis ICD10 Code Diagnosis Note [id number] Laurent MELENDEZ [facility] [address] [place] [address] 02/07/2019 16:13:18 02/07/2019 16:48:34 Acute urinary tract infection 423516094 N39.0 Health Concerns Section Related Observation LastModified by Organization Detai ls LastModified Time None Recorded Concern Status LastModified by Organization Details LastModified Time None Recorded Advance Directives Directive None Recorded Payers Encounter Date Sequence Insurance Name Policy Number Policy Lange Covered Member ID Lange Member ID Guarantor Name 02/07/2019 2 [employer] - [employer] ( SUPPLEMENT) Jamari Bravo [id number] Brandy Bravo 02/07/2019 1 [facility] () Jamari Bravo [id number] Brandy Bravo Notes Date Note Type Note Provider Name and Address Organization Details Recorded Time 02/07/2019 text/html 23/f here with c/o dysuria, frequency, urgency, and suprapubic tenderness x4 days. Denies c/f/n/v/d. Laurent BURDEN-Celestino [facility] and S 02/07/2019 16:31:25 OBGyn Episode No OBEpisode recorded.
--- OUTSIDE RECORDS SUMMARY | 2024-08-09 09:39 | XMS_ITS | Encounter Summary ---
Author Organization [facility] Health Address [address] [place] [address] Care Team Providers Care Legal Support Specialist Name Role Phone Jesus Avila MD Primary Care Provider Encounter Details Date Type Department Care Team (Late st Contact Info) Description 02/26/2013 [facility] Outpatient Visit CG DEFAULT [address] [place] [address] Unknown, Provider Social History Tobacco Use Types Packs/Day Years Used Date Smoking Tobacco: Never Assessed Comments No Sex and Gender Information Value Date Recorded Sex Assigned at Female 07/02/2024 1:19 PM [employer]CTORY PROC[employer] WORKERS Legal Sex Female 9:38 AM [employer]ORY PROCESS WORKERS Gender Identity Female 07/02/2024 1:19 PM [employer]ORY PROC[employer] WORKERS Sexual Orientation Straight 07/02/2024 1: 19 PM [employer]ORY PROCESS WORKERS documented as of this encounter Plan of Treatment Not on file documented as of this encounter Visit Diagnoses Not on filedocumented in this encounter Care Teams Legal Support Specialist Relationship Specialty Start Date End Date Jesus Avila MD [address] [place] [address] PCP - General 07/05/22 documented as of this encounter
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
--- OUTSIDE RECORDS SUMMARY | 2024-08-09 09:39 | XMS_ITS | Clinical Summary ---
Author Organization [facility] Address [address] [place] [address] Care Team Providers Care Office Mail Clerk Name Role Phone Jesus Avila MD Primary Care Provider Allergies Active Allergy Reactions Criticality Noted Date Comments Mippgzombetsn-Ddatkadpd-Cr Hives Prochlorperazine Other (see comment) 11/14/2020 Increased Heart Rate Gluten Meal Diarrhea 11/13/2020 Cephalexin Vomiting Medium 11/13/2020 Medications No known medications Active Problems Problem Noted Date Diagnosed Date Pyelonephritis 11/13/2020 Celiac disease ([facility]) 02/22/2015 GERD without esophagitis 04/11/2010 [...] 5 Years) and At-Risk Patients (6 to 49 Years) Aged Out No longer eligible based on patient's age to complete this topic RSV Immunizations Under 20 Months Aged Out No longer eligible based on patient's age to complete this topic Goals Goal Patient Goal Type Associated Problems Recent Progress Patient-Stated? Author Health - patient able to perform ADLs independently General No Carolann Zhou, RN Insurance [address] [place] [id number] [facility] BLUE [facility] Advance Directives * Full Code (Latest Code Status on File) Date Activated Date Inactivated Comments 11/14/2020 12:25 AM 11/15/2020 1:32 PM Care Teams Office Mail Clerk Relationship Specialty Start Date End Date Jesus Avila MD [address] [place] [address] PCP - General FAMILY PRACTICE 11/24/20
[2024-08-09 09:45] VITALS: BP 123/81; PULSE 103; RESP 16; TEMP 36.9; O2SAT 100
[2024-08-09 10:04] LABS: EDUAAPPEAR Cloudy; EDUABILI Negative (Negative); EDUABLOOD 1+ (Negative); EDUACOLOR1 Yellow; EDUAGLUCOSE Negative (Negative); EDUAKETONE Negative (Negative); EDUALEUKO 1+ (Negative); EDUANITRATE Negative (Negative); EDUAPROTEIN Negative (Negative); EDUAUROBILI 0.2
--- NOTE | 2024-08-09 10:13 | ED.FEMALEGU ---
HPI - Female Genitourinary General Chief complaint: Urogenital-Female Stated complaint: uti Time Seen by Provider: 08/09/24 10:06 Source: patient and RN notes reviewed Mode of arrival: ambulatory Limitations: no limitations History of Present Illness HPI Narrative: Patient presents today complaining 3 day history of lower abdominal cramping, irritation with urinating, malodorous urine, cloudy urine. She does have history of interstitial cystitis for which she is followed by Urology. Typically she can get these symptoms under control with increased water intake and heating pad, but symptoms have not improved. Related Data Home Medications ?Medication ?Instructions ?Recorded ?Confirmed ?Last Taken ?Type docosahexaenoic acid 200 mg 200 mg PO DAILY 04/13/24 06/11/24 Unknown History capsule ( DHA) ferrous sulfate 325 mg (65 mg 325 mg PO DAILY 04/13/24 06/11/24 Unknown History iron) tablet (FeroSul) Allergies Allergy/AdvReac Type Severity Reaction Status Date / Time amoxicillin (From Augmentin) Allergy Intermediate Vomiting Verified 08/09/24 10:13 clavulanic acid (From Allergy Intermediate Vomiting Verified 08/09/24 10:13 Augmentin) chlorpheniramine (From Allergy Mild Hives Verified 08/09/24 09:44 Donatussin) ciprofloxacin (From Cipro) Allergy Mild Hives Verified 08/09/24 09:44 dextromethorphan (From Allergy Mild Hives Verified 08/09/24 09:44 Donatussin) phenylephrine (From Allergy Mild Hives Verified 08/09/24 09:44 Donatussin) cephalexin (From Keflex) AdvReac Intermediate Vomiting Verified 08/09/24 09:44 gluten AdvReac Intermediate Gastrointestinal Verified 08/09/24 09:44 Upset prochlorperazine (From AdvReac Intermediate Palpitation Verified 08/09/24 09:44 Compazine) s Review of Systems Review of Systems: CONSTITUTIONAL: Denies body aches, fever, chills, or sweats. EYES: Denies visual changes, redness, or discharge. ENT: Denies rhinorrhea, congestion, sore throat, or otalgia. CARDIOVASCULAR: Denies chest pain, palpitations, or edema. RESPIRATORY: Denies cough or dyspnea. GASTROINTESTINAL: Denies nausea, vomiting, or diarrhea.+ abdominal cramping GENITOURINARY: Denies hematuria.+ dysuria, malodorous and cloudy urine SKIN: Denies rash, itching, or wounds. MUSCULOSKELETAL: Denies back pain, joint pain, or myalgia. NEUROLOGIC: Denies headache, numbness, tingling, or weakness. PSYCH: Denies depression or anxiety. [facility] Past Medical History Medical History (Updated 08/09/24 @ 10:17 by Mandi Mccormick, BERTRAM, ) Suppression of menses Costochondritis Fibromyalgia Psoriasis Acute arthritis Anxiety Low ferritin level Arthralgia BMI 25.0-25.9,adult Eustachian tube dysfunction BMI 26.0-26.9,adult Hx of psoriatic arthritis BMI 24.0-24.9, adult BMI 22.0-22.9, adult Celiac disease Surgical History Surgical History H/O dilation and curettage 06/15/2024 suction d&c H/O endoscopy Hx of cholecystectomy Family History Family History Father Hypertension Diabetes mellitus Obesity Mother Depression Thyroid cancer Thyroid disorder Sibling Thyroid disorder COVID-19 Hypertension Social History Social History Smoking status: Never smoker Second hand tobacco smoke exposure: No Alcohol intake: never Substance use: never Substance use type: does not use Do You Feel Safe in your Home?: Yes Lack of Transportation: No Lack of Food: Never True Current Housing: I Have Housing Concerned About Future Housing: No Difficulty Paying Gas/Electric Bills: No Difficulty Paying for Meds: No Currently Unemployed: No Education: Bachelor's Degree Difficulty w/ Childcare or Family Care: No Living arrangements: with family Occupation/Education: occupation 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 Please see nursing chart for further information. There is no relevant family history pertinent to the presenting complaint Exam Narrative: GENERAL: Well-appearing, well-nourished, and in no acute distress. HEAD: Normocephalic, atraumatic. EYES: EOMI. No redness or drainage. Conjunctivae normal. ENT: Mucous membranes pink and moist.. NECK: Normal AROM. CHEST: No respiratory distress. Clear to auscultation. HEART: Regular rate and rhythm. No murmur appreciated. Normal peripheral pulses. ABDOMEN: Soft, nondistended, normal active bowel sounds.+ mild suprapubic tenderness EXTREMITIES: Normal range of motion. No edema. SKIN: Warm, dry, no rash. Capillary refill normal. Normal skin turgor. NEURO: No focal deficits. Alert and oriented x3. Gait steady. PSYCH: Normal affect. No signs of depression or anxiety. Course Course Level of Care: Express Care Visit Vital Signs Vital signs: Vital Signs Temperature 98.4 F 08/09/24 09:45 Pulse Rate 103 H 08/09/24 09:45 Respiratory Rate 16 08/09/24 09:45 Blood Pressure 123/81 08/09/24 09:45 Pulse Oximetry 100 08/09/24 09:45 Oxygen Delivery Room Air 08/09/24 09:45 Temperature 98.4 F 08/09/24 09:45 Pulse Rate 103 H 08/09/24 09:45 Respiratory Rate 16 08/09/24 09:45 Blood Pressure 123/81 08/09/24 09:45 Pulse Oximetry 100 08/09/24 09:45 Oxygen Delivery Room Air 08/09/24 09:45 Reviewed MDM - Female Genitourinary MDM Narrative Medical decision making narrative: UA is positive for blood and leukocyte esterase. Will treat with course of Macrobid as patient has multiple drug allergies. Culture pending. Differential Diagnosis Differential diagnosis: Likely urinary tract infection, vaginitis, cystitis and other (Interstitial cystitis flare) Lab Data Attestation: I reviewed the patient's lab results. Labs: Lab Results 08/09/24 Range/Units 10:02 POC Urine Color Yellow POC Urine Clarity Cloudy POC Urine pH 6.0 POC Ur Specif Fabius 1.010 POC Urine Protein Negative (Negative) POC Ur Glucose (UA) Negative (Negative) POC Urine Ketones Negative (Negative) POC Urine Blood 1+ (Negative) POC Urine Nitrite Negative (Negative) POC Urine Bilirubin Negative (Negative) POC Urine Urobilinogen 0.2 POC U Leukocyte Esteras 1+ (Negative) Critical Care Time Critical Care Time Critical Care Time: No Discharge Plan Discharge Clinical Impression: Urinary tract infection Patient Disposition: Home Condition: Stable Instructions: Antibiotic Form, Urinary Tract Infection in Women (DC) Additional Instructions: Your urine shows infection today. Take Macrobid as prescribed until gone. Your urine will be sent of for a culture to identify what type of bacteria is causing your infection. If the culture shows that your medication will not get rid of your infection, you will be notified and a new antibiotic will be called in for you. If your symptoms worsen to include fever, sweats, chills, nausea, vomiting, severe abdominal or back pain, please go to the ER for further evaluation. Your blood pressure was elevated above 120/80 today at Urgent Care. This puts you above the threshold for follow up. Please schedule a followup visit with your personal physician as soon as possible, for further evaluation and treatment. Even blood pressure exceeding 120/80 may indicate pre-hypertension. Patient Language: [place] Citizen Prescriptions: New nitrofurantoin monohyd/m-cryst [Macrobid] 100 mg capsule 100 mg PO Q12H 7 Days Qty: 14 0RF Rx Instructions: must administer with a meal/food No Action prednisone 20 mg tablet 20 mg PO DAILY 5 Days Qty: 5 0RF ondansetron 4 mg tablet,disintegrating 4 mg PO Q6H PRN (Reason: nausea and vomiting) Qty: 30 2RF pyridoxine (vitamin B6) 25 mg tablet 25 mg PO TID Qty: 120 1RF magnesium oxide 400 mg magnesium capsule 400 mg PO DAILY Qty: 90 2RF Unisom (doxylamine) 25 mg tablet 12.5 mg PO TID Qty: 90 1RF ferrous sulfate [FeroSul] 325 mg (65 mg iron) tablet 325 mg PO DAILY DHA 200 mg capsule 200 mg PO DAILY acetaminophen 500 mg tablet 1,000 mg PO TID Qty: 60 0RF ibuprofen 800 mg tablet 800 mg PO TID Qty: 30 0RF Follow-up/Referrals: Jesus Avila MD [Primary Care Provider] - Time of Disposition: 10:18
== END 2024-08-09 10:21 | disposition home or self-care (01) ==
PROVIDERS: Emergency Provider Nurse Practitioner; PCP Family Medicine
DX: N39.0 Urinary tract infection, site not specified (principal); M79.7 Fibromyalgia; M19.90 Unspecified osteoarthritis, unspecified site; L40.50 Arthropathic psoriasis, unspecified; K90.0 Celiac disease
CPT/HCPCS: 81003; 87086; 99213; G0463

== ENCOUNTER 2024-08-17 16:44 | Outpatient (CLI) | payer OTHER, SELFPAY ==
[2024-08-17 17:24] LABS: Beta HCG Quantitative 17.32 mIU/ML
--- OUTSIDE RECORDS SUMMARY | 2024-08-17 17:59 | XMS_ITS | Encounter Summary ---
Author Organization [facility] Health Address [address] [place] [address] Care Team Providers Care Autoglazier Name Role Phone Jesus Avila MD Primary Care Provider [phone] Encounter Details Date Type Department Care Team (Late st Contact Info) Description 02/26/2013 [facility] Outpatient Visit CG DEFAULT [address] [place] [address] Unknown, Provider Social History Tobacco Use Types Packs/Day Years Used Date Smoking Tobacco: Never Assessed Comments No Sex and Gender Information Value Date Recorded Sex Assigned at Female 07/02/2024 1:19 PM FIRE CONTROL SYSTEM INSTALLER Legal Sex Female 9:38 AM FIRE CONTROL SYSTEM INSTALLER Gender Identity Female 07/02/2024 1:19 PM FIRE CONTROL SYSTEM INSTALLER Sexual Orientation Straight 07/02/2024 1: 19 PM FIRE CONTROL SYSTEM INSTALLER documented as of this encounter Plan of Treatment Not on file documented as of this encounter Visit Diagnoses Not on filedocumented in this encounter Care Teams Autoglazier Relationship Specialty Start Date End Date Jesus Avila MD [address] [place] [address] PCP - General 07/05/22 documented as of this encounter
--- OUTSIDE RECORDS SUMMARY | 2024-08-17 17:59 | XMS_ITS | Clinical Summary ---
Author Organization [facility] Address [address] [place] [address] Care Team Providers Care Newspaper Reporter Name Role Phone Jesus Avila MD Primary Care Provider Source Comments [facility],non-owned Affiliates and Associated Physician Practices is amultiple site organization consisting of ambulatory clinics and hospital sitesin [place], [place], [place] and [place]. This disclosure is being madepursuant to the Care Everywhere program and may not contain all information available regarding this patient. Last updated 18.[facility] Allergies Active Allergy Reactions [...] Sex Assigned at Female 07/02/2024 1:19 PM BRAINER Legal Sex Female 9:38 AM BRAINER Gender Identity Female 07/02/2024 1:19 PM BRAINER Sexual Orientation Straight 07/02/2024 1: 19 PM BRAINER Last Filed Vital Signs Vital Sign Reading Time Taken Comments Blood Pressure 127/80 07/05/2022 10:56 AM BRAINER Pulse 93 07/05/2022 10:56 AM BRAINER Temperature 37 C (98.6 F) 07/05/2022 10:56 AM BRAINER Respiratory Rate 18 07/05/2022 10:56 AM BRAINER Oxygen Saturation 100% 07/05/2022 10:56 AM BRAINER Inhaled Oxygen Concentration - - Weight 68.9 kg (152 lb) 07/05/2022 10:56 AM BRAINER Height 152.4 cm (5') 07/05/2022 10:56 AM BRAINER Body Mass Index 29.69 07/05/2022 10:56 AM BRAINER Plan of Treatment Health Maintenance Due Date [...] to complete this topic Insurance [address] [place] [id number] [employer] Care Teams Newspaper Reporter Relationship Specialty Start Date End Date Jesus Avila MD [address] [place] [address] PCP - General 07/05/22
--- OUTSIDE RECORDS SUMMARY | 2024-08-17 17:59 | XMS_ITS | Clinical Summary ---
Author Organization [facility] Address [address] [place] [address] Care Team Providers Care Lump Receiver Name Role Phone Jesus Avila MD Primary Care Provider [phone] Allergies Active Allergy Reactions Criticality Noted Date Comments Hcudgxzzqmixk-Zkhednggo-Gu Hives Prochlorperazine Other (see comment) 11/14/2020 Increased Heart Rate Gluten Meal Diarrhea 11/13/2020 Cephalexin Vomiting Medium 11/13/2020 Medications No known medications Active Problems Problem Noted Date Diagnosed Date Pyelonephritis 11/13/2020 Celiac disease ([facility]) 02/22/2015 GERD without esophagitis 04/11/2010 [...] independently General No Carolann Zhou, RN Insurance [address] [place] [id number] [facility] BLUE [facility] Advance Directives * Full Code (Latest Code Status on File) Date Activated Date Inactivated Comments 11/14/2020 12:25 AM 11/15/2020 1:32 PM Care Teams Lump Receiver Relationship Specialty Start Date End Date Jesus Avila MD [address] [place] [address] PCP - General FAMILY PRACTICE 11/24/20
== END 2024-08-17 16:45 | disposition home or self-care (01) ==
LOC: ANHLAB 16:46
PROVIDERS: PCP Family Medicine; Visit Provider Obstetrics & Gynecology
DX: N94.89 Other specified conditions associated with female genital organs and menstrual cycle (principal)
CPT/HCPCS: 36415; 84702

== ENCOUNTER 2024-08-19 16:51 | Outpatient (CLI) | payer OTHER, SELFPAY ==
--- OUTSIDE RECORDS SUMMARY | 2024-08-19 17:45 | XMS_ITS | Data Portability ---
Author Organization [place] - [facility] and S, [facility] Address [address] [place] [address] [place] [address] Assessment No assessment recorded. Plan of Treatment Reminders Order Date Submit Date Provider Last Modified By Organization Details Last Modified Time Details Appointments None recorded. Lab urinalysis , dipstick 2018 [email or web address] [facility], [address], [place], [address], 16:30:32 Referral None recorded. Procedures None recorded. Surgeries None recorded. Imaging None recorded. Medication Orders Bactrim DS 800 mg-160 mg tablet 2018 INTERFACE [id number], [address], [place], [place], [phone], 9 16:30:48 phenazopyr idine 200 mg tablet 2018 INTERFACE [id number], [address], [place], [place], [phone], 9 16:30:48 Patient TargetsNo targets recorded. Patient InstructionsNo instructions recorded. Reason for Referral None Reported. Results Created Date Observation Date Name Description Value Unit Range Abnormal Flag Note LastModifiedBy Organization Detail LastModifiedTime 02/08/2002/07/2019 urina lysis , dipst ick Leukocytes 2+ Not Available [facility] [address], [place], [address], 02/07/2019 16:25:51 02/08/20 19 02/07/2019 urina lysis , dipst ick Nitrite positi ve Not Available [facility] [address], [place], [address], 02/07/2019 16:25:51 02/08/20 19 02/07/2019 urina lysis , dipst ick Urobilinogen 0.2 Not Available [facility] [address] [place] [address] [place], [place], [address], 02/07/2019 16:25:51 02/08/20 19 02/07/2019 urina lysis , dipst ick Protein Negati ve Not Available [facility] [address] [place] [address] [place], [place], [address], 02/07/2019 16:25:51 02/08/2002/07/2019 urina lysis , dipst ick pH 6.0 Not Available [facility] [address] [place] [address] [place], [place], [address], 02/07/2019 16:25:51 02/08/20 19 02/07/2019 urina lysis , dipst ick Blood 1+ Not Available [facility] [address] [place] [address] [place], [place], [address], 02/07/2019 16:25:51 02/08/20 19 02/07/2019 urina lysis , dipst ick Specific [place] 1.025 Not Available [facility] [address] [place] [address] [place], [place], [address], 02/07/2019 16:25:51 02/08/20 19 02/07/2019 urina lysis , dipst ick Ketone 1+ Not Available [facility] [address] [place] [address] [place], [place], [address], 02/07/2019 16:25:51 02/08/20 19 02/07/2019 urina lysis , dipst ick Bilirubin Negati ve Not Available [facility] [address], [place], [address], 02/07/2019 16:25:51 02/08/20 19 02/07/2019 urina lysis , dipst ick Glucose Negati ve Not Available [facility] [address] [place] [address], [place], [address], 02/07/2019 16:25:51 02/08/20 19 02/07/2019 urina lysis , dipst ick Appearance Turbid Not Available [facility] [address] [place] [address], [place], [address], 02/07/2019 16:25:51 02/08/20 19 02/07/2019 urina lysis , dipst ick Color Dark Yellow Not Available [facility] [address] [place] [address], [place], [address], 02/07/2019 16:25:51 Result Notes None recorded. Problems Name Problem SNOMED Code Status Onset Date Resolution Date Notes Provider Name and Address Organization Details Recorded Time Acute urinary tract infection 686372619 Active 019 Laurent Dye [employer]ERC[employer], [place] - [facility] and S 9 16:28:08 Problem Notes None recorded. Medical Equipment None Reported. Allergies Allergen ID Allergen Name Allergen Category Reaction Reaction Severity Criticality Documentation Date Start Date Code Code System Note Provider Name and Address Organization Details Recorded Time 9373 chlorphen iramine / dextromet horphan / phenyleph rine medicatio n Not available Not available Not available 02/07/2019 06822 9 RxNorm Not Available Not Available Not [...] Updated DateTime 9 91 /min 97.7 [degF] 84978.8 6 g 152.4 cm 29.3 kg/m2 96 % 96 % 128 mm[Hg] 86 mm[Hg] Rebecca [facility] and S 9 16:25:26 Social History None recorded. Functional Status None recorded. Mental Status None recorded. Family History Nothing Reported. Medical History No medical history recorded. Gynecological HistoryNo gynecological history recorded. Obstetrics History GPAL:G 0 P 0 0 0 0 Past Encounters Encounter ID Performer Location Encounter Start Date Encounter Closed Date Diagnosis/Indication Diagnosis SNOMED-CT Code Diagnosis ICD10 Code Diagnosis Note [id number] Laurent MELENDEZ [facility] [address] [place] [address] 02/07/2019 16:13:18 02/07/2019 16:48:34 Acute urinary tract infection 218491231 N39.0 Health Concerns Section Related Observation LastModified by Organization Detai ls LastModified Time None Recorded Concern Status LastModified by Organization Details LastModified Time None Recorded Advance Directives Directive None Recorded Payers Encounter Date Sequence Insurance Name Policy Number Policy Lange Covered Member ID Lange Member ID Guarantor Name 02/07/2019 2 [employer] - [employer] ( SUPPLEMENT) Jamari Bravo [id number] Brandy Bravo 02/07/2019 1 [facility] Jamari Bravo [id number] Brandy Bravo Notes Date Note Type Note Provider Name and Address Organization Details Recorded Time 02/07/2019 text/html 23/f here with c/o dysuria, frequency, urgency, and suprapubic tenderness x4 days. Denies c/f/n/v/d. Laurent [facility] and S 02/07/2019 16:31:25 OBGyn Episode No OBEpisode recorded.
--- OUTSIDE RECORDS SUMMARY | 2024-08-19 17:45 | XMS_ITS | Clinical Summary ---
Author Organization [facility] Address [address] [place] [address] Care Team Providers Care Certified Pesticide Applicator Name Role Phone Jesus Avila MD Primary Care Provider [phone] Allergies Active Allergy Reactions Criticality Noted Date Comments Usczvaqtvkgfs-Vybzrgmlw-Gy Hives Prochlorperazine Other (see comment) 11/14/2020 Increased Heart Rate Gluten Meal Diarrhea 11/13/2020 Cephalexin Vomiting Medium 11/13/2020 Medications No known medications Active Problems Problem Noted Date Diagnosed Date Pyelonephritis 11/13/2020 Celiac disease ([facility]) 02/22/2015 GERD without esophagitis 04/11/2010 [...] independently General No Carolann Zhou, RN Insurance [address] [place] [id number] [facility] BLUE [facility] Advance Directives * Full Code (Latest Code Status on File) Date Activated Date Inactivated Comments 11/14/2020 12:25 AM 11/15/2020 1:32 PM Care Teams Certified Pesticide Applicator Relationship Specialty Start Date End Date Jesus Avila MD [address] [place] [address] PCP - General FAMILY PRACTICE 11/24/20
--- OUTSIDE RECORDS SUMMARY | 2024-08-19 17:45 | XMS_ITS | Encounter Summary ---
Author Organization [facility] Health Address [address] [place] [address] Care Team Providers Care Operations Forester Name Role Phone Jesus Avila MD Primary Care Provider Encounter Details Date Type Department Care Team (Late st Contact Info) Description 02/26/2013 [facility] Outpatient Visit CG DEFAULT [address] [facility] [place] [address] Unknown, Provider Social History Tobacco Use Types Packs/Day Years Used Date Smoking Tobacco: Never Assessed Comments No Sex and Gender Information Value Date Recorded Sex Assigned at Female 07/02/2024 1:19 PM TEAM PRIMARY CARE PHYSICIAN Legal Sex Female 9:38 AM TEAM PRIMARY CARE PHYSICIAN Gender Identity Female 07/02/2024 1:19 PM TEAM PRIMARY CARE PHYSICIAN Sexual Orientation Straight 07/02/2024 1: 19 PM TEAM PRIMARY CARE PHYSICIAN documented as of this encounter Plan of Treatment Not on file documented as of this encounter Visit Diagnoses Not on filedocumented in this encounter Care Teams Operations Forester Relationship Specialty Start Date End Date Jesus Avila MD [address] [place] [address] PCP - General 07/05/22 documented as of this encounter
--- OUTSIDE RECORDS SUMMARY | 2024-08-19 17:45 | XMS_ITS | Clinical Summary ---
Author Organization [facility] Address [address] [facility] [place] [address] Care Team Providers Care Hostler Helper Name Role Phone Jesus Avila MD Primary Care Provider [phone] Source Comments [facility],non-owned Affiliates and Associated Physician Practices is amultiple site organization consisting of ambulatory clinics and hospital sitesin [place], [place], [place] and [place]. This disclosure is being madepursuant to the Care Everywhere program and may not contain all information available regarding this patient. Last updated 18.[facility] Allergies Active Allergy Reactions Criticality Noted Date [...] Sex Assigned at Female 07/02/2024 1:19 PM BAND HEAD SAW OPERATOR Legal Sex Female 9:38 AM BAND HEAD SAW OPERATOR Gender Identity Female 07/02/2024 1:19 PM BAND HEAD SAW OPERATOR Sexual Orientation Straight 07/02/2024 1: 19 PM BAND HEAD SAW OPERATOR Last Filed Vital Signs Vital Sign Reading Time Taken Comments Blood Pressure 127/80 07/05/2022 10:56 AM BAND HEAD SAW OPERATOR Pulse 93 07/05/2022 10:56 AM BAND HEAD SAW OPERATOR Temperature 37 C (98.6 F) 07/05/2022 10:56 AM BAND HEAD SAW OPERATOR Respiratory Rate 18 07/05/2022 10:56 AM BAND HEAD SAW OPERATOR Oxygen Saturation 100% 07/05/2022 10:56 AM BAND HEAD SAW OPERATOR Inhaled Oxygen Concentration - - Weight 68.9 kg (152 lb) 07/05/2022 10:56 AM BAND HEAD SAW OPERATOR Height 152.4 cm (5') 07/05/2022 10:56 AM BAND HEAD SAW OPERATOR Body Mass Index 29.69 07/05/2022 10:56 AM BAND HEAD SAW OPERATOR Plan of Treatment Health Maintenance Due Date [...] to complete this topic Insurance 52[address] [place] [id number] [employer] Care Teams Hostler Helper Relationship Specialty Start Date End Date Jesus Avila MD [address] [place] [address] PCP - General 07/05/22
[2024-08-19 18:37] LABS: Beta HCG Quantitative 18.49 mIU/ML
== END 2024-08-19 16:52 | disposition home or self-care (01) ==
LOC: ANHLAB 16:52
PROVIDERS: PCP Family Medicine; Visit Provider Obstetrics & Gynecology
DX: N94.89 Other specified conditions associated with female genital organs and menstrual cycle (principal)
CPT/HCPCS: 36415; 84702

== ENCOUNTER 2024-08-21 14:53 | Outpatient (CLI) | payer OTHER, SELFPAY ==
--- OUTSIDE RECORDS SUMMARY | 2024-08-21 14:57 | XMS_ITS | Encounter Summary ---
Author Organization [facility] Health Address [address] [place] [address] Care Team Providers Care Director Of Radiology Name Role Phone Jesus Avila MD Primary Care Provider Encounter Details Date Type Department Care Team (Late st Contact Info) Description 02/26/2013 [facility] Outpatient Visit CG DEFAULT [address] [facility] [place] [address] Unknown, Provider Social History Tobacco Use Types Packs/Day Years Used Date Smoking Tobacco: Never Assessed Comments No Sex and Gender Information Value Date Recorded Sex Assigned at Female 07/02/2024 1:19 PM SPORT SHOE SPIKE ASSEMBLER Legal Sex Female 9:38 AM SPORT SHOE SPIKE ASSEMBLER Gender Identity Female 07/02/2024 1:19 PM SPORT SHOE SPIKE ASSEMBLER Sexual Orientation Straight 07/02/2024 1: 19 PM SPORT SHOE SPIKE ASSEMBLER documented as of this encounter Plan of Treatment Not on file documented as of this encounter Visit Diagnoses Not on filedocumented in this encounter Care Teams Director Of Radiology Relationship Specialty Start Date End Date Jesus Avila MD [address] [place] [address] PCP - General 07/05/22 documented as of this encounter
--- OUTSIDE RECORDS SUMMARY | 2024-08-21 14:57 | XMS_ITS | Clinical Summary ---
Author Organization [facility] Address [address] [place] [address] Care Team Providers Care Leadership Development Instructor Name Role Phone Jesus Avila MD Primary Care Provider [phone] Allergies Active Allergy Reactions Criticality Noted Date Comments Tzvuuzwbqopqh-Wcxtjfigq-Rj Hives Prochlorperazine Other (see comment) 11/14/2020 Increased Heart Rate Gluten Meal Diarrhea 11/13/2020 Cephalexin Vomiting Medium 11/13/2020 Medications No known medications Active Problems Problem Noted Date Diagnosed Date Pyelonephritis 11/13/2020 Celiac disease ([facility]) 02/22/2015 GERD without esophagitis 04/11/2010 Migraine [...] independently General No Carolann Zhou, RN Insurance [address] [place] [id number] [facility] BLUE [facility] Advance Directives * Full Code (Latest Code Status on File) Date Activated Date Inactivated Comments 11/14/2020 12:25 AM 11/15/2020 1:32 PM Care Teams Leadership Development Instructor Relationship Specialty Start Date End Date Jesus Avila MD [address] [place] [address] PCP - General FAMILY PRACTICE 11/24/20
--- OUTSIDE RECORDS SUMMARY | 2024-08-21 14:57 | XMS_ITS | Clinical Summary ---
Author Organization [facility] Address [address] [facility] [place] [address] Care Team Providers Care Machine Attendant Name Role Phone Jesus Avila MD Primary Care Provider [phone] Source Comments [facility],non-owned Affiliates and Associated Physician Practices is amultiple site organization consisting of ambulatory clinics and hospital sitesin [place], [place] and [place]. This disclosure is being madepursuant to the Care Everywhere program and may not contain all information available regarding this patient. Last updated 18.[facility] Allergies Active Allergy Reactions Criticality Noted [...] Sex Assigned at Female 07/02/2024 1:19 PM NURSE FIRST ASSIST Legal Sex Female 9:38 AM NURSE FIRST ASSIST Gender Identity Female 07/02/2024 1:19 PM NURSE FIRST ASSIST Sexual Orientation Straight 07/02/2024 1: 19 PM NURSE FIRST ASSIST Last Filed Vital Signs Vital Sign Reading Time Taken Comments Blood Pressure 127/80 07/05/2022 10:56 AM NURSE FIRST ASSIST Pulse 93 07/05/2022 10:56 AM NURSE FIRST ASSIST Temperature 37 C (98.6 F) 07/05/2022 10:56 AM NURSE FIRST ASSIST Respiratory Rate 18 07/05/2022 10:56 AM NURSE FIRST ASSIST Oxygen Saturation 100% 07/05/2022 10:56 AM NURSE FIRST ASSIST Inhaled Oxygen Concentration - - Weight 68.9 kg (152 lb) 07/05/2022 10:56 AM NURSE FIRST ASSIST Height 152.4 cm (5') 07/05/2022 10:56 AM NURSE FIRST ASSIST Body Mass Index 29.69 07/05/2022 10:56 AM NURSE FIRST ASSIST Plan of Treatment Health Maintenance Due Date [...] this topic Insurance [address] [place] [id number] [employer] Care Teams Machine Attendant Relationship Specialty Start Date End Date Jesus Avila MD [address] [place] [address] PCP - General 07/05/22
--- OUTSIDE RECORDS SUMMARY | 2024-08-21 14:57 | XMS_ITS | Data Portability ---
Author Organization [place] - [facility] and S, [facility] Address [address] [place] [address] [place] [address] Assessment No assessment recorded. Plan of Treatment Reminders Order Date Submit Date Provider Last Modified By Organization Details Last Modified Time Details Appointments None recorded. Lab urinalysis , dipstick 2018 [email or web address] [facility], [address], [place], [address], 16:30:32 Referral None recorded. Procedures None recorded. Surgeries None recorded. Imaging None recorded. Medication Orders Bactrim DS 800 mg-160 mg tablet 2018 INTERFACE [id number], [address], [place], [place], [id number], 9 16:30:48 phenazopyr idine 200 mg tablet 2018 [facility]FACE [id number], [address], [place], [place], [phone], 9 16:30:48 Patient TargetsNo targets recorded. Patient InstructionsNo instructions recorded. Reason for Referral None Reported. Results Created Date Observation Date Name Description Value Unit Range Abnormal Flag Note LastModifiedBy Organization Detail LastModifiedTime 02/08/2002/07/2019 urina lysis , dipst ick Leukocytes 2+ Not Available [facility] [address], [place], [address], 02/07/2019 16:25:51 02/08/20 02/07/2019 urina lysis , dipst ick Nitrite positi ve Not Available [facility] [address], [place], [address], 02/07/2019 16:25:51 02/08/20 19 02/07/2019 urina lysis , dipst ick Urobilinogen 0.2 Not Available [facility] [address] [place] [address] [address], [place], [address], 02/07/2019 16:25:51 02/08/20 19 02/07/2019 urina lysis , dipst ick Protein Negati ve Not Available [facility] [address] [place] [address] [place], [place], [address], 02/07/2019 16:25:51 02/08/2002/07/2019 urina lysis , dipst ick pH 6.0 Not Available [facility] [address] [place] [address] [place], [place], [address], 02/07/2019 16:25:51 02/08/20 19 02/07/2019 urina lysis , dipst ick Blood 1+ Not Available [facility] [address] [place] [address] [place], [place], [address], 02/07/2019 16:25:51 02/08/20 19 02/07/2019 urina lysis , dipst ick Specific [place] 1.025 Not Available [facility] [address] [place] [address] [place], [place], [address], 02/07/2019 16:25:51 02/08/20 19 02/07/2019 urina lysis , dipst ick Ketone 1+ Not Available [facility] [address] [place] [address] [place], [place], [address], 02/07/2019 16:25:51 02/08/20 19 02/07/2019 urina lysis , dipst ick Bilirubin Negati ve Not Available [facility] [address] [facility] [facility], [place], [address], 02/07/2019 16:25:51 02/08/20 19 02/07/2019 urina lysis , dipst ick Glucose Negati ve Not Available [facility] [address] [place] [address], [place], [address], 02/07/2019 16:25:51 02/08/20 19 02/07/2019 urina lysis , dipst ick Appearance Turbid Not Available [facility] [address] [place] [address], [place], [address], 02/07/2019 16:25:51 02/08/20 19 02/07/2019 urina lysis , dipst ick Color Dark Yellow Not Available [facility] [address] [place] [address], [place], [address], 02/07/2019 16:25:51 Result Notes None recorded. Problems Name Problem SNOMED Code Status Onset Date Resolution Date Notes Provider Name and Address Organization Details Recorded Time Acute urinary tract infection 018569119 Active 019 Laurent Dye PHYSICIAN [facility]ST[facility] [place], [place] - [facility] 9 16:28:08 Problem Notes None recorded. Medical Equipment None Reported. Allergies Allergen ID Allergen Name Allergen Category Reaction Reaction Severity Criticality Documentation Date Start Date Code Code System Note Provider Name and Address Organization Details Recorded Time 9373 chlorphen iramine / dextromet horphan / phenyleph rine medicatio n Not available Not available Not available 02/07/2019 40237 9 RxNorm Not Available Not Available Not [...] Updated DateTime 9 91 /min 97.7 [degF] 04028.8 6 g 152.4 cm 29.3 kg/m2 96 [...] SNOMED-CT Code Diagnosis ICD10 Code Diagnosis Note 29388 Laurent MELENDEZ [facility] [address] [place] [address] 02/07/2019 16:13:18 02/07/2019 16:48:34 Acute urinary tract infection 789872724 N39.0 Health Concerns Section Related Observation LastModified by Organization Detai ls LastModified Time None Recorded Concern Status LastModified by Organization Details LastModified Time None Recorded Advance Directives Directive None Recorded Payers Encounter Date Sequence Insurance Name Policy Number Policy Lange Covered Member ID Lange Member ID Guarantor Name 02/07/2019 2 [employer] - [employer] ( SUPPLEMENT) Jamari Bravo [id number] Brandy Bravo 02/07/2019 1 [facility] () Jamari Bravo [id number] Brandy Bravo Notes Date Note Type Note Provider Name and Address Organization Details Recorded Time 02/07/2019 text/html 23/f here with c/o dysuria, frequency, urgency, and suprapubic tenderness x4 days. Denies c/f/n/v/d. Laurent BURDEN[facility] 02/07/2019 16:31:25 OBGyn Episode No OBEpisode recorded.
[2024-08-21 15:33] LABS: Beta HCG Quantitative 43.82 mIU/ML
== END 2024-08-21 14:54 | disposition home or self-care (01) ==
LOC: ANHLAB 14:54
PROVIDERS: PCP Family Medicine; Visit Provider Obstetrics & Gynecology
DX: O02.1 Missed abortion (principal); Z3A.00 Weeks of gestation of pregnancy not specified
CPT/HCPCS: 36415; 84702

== ENCOUNTER 2024-08-22 07:59 | Emergency (ER) | payer OTHER, SELFPAY ==
--- NOTE | ~2024-08-22 | US_ITS ---
EXAMINATION: US OB <= 14 weeks fetus DATE: 08/22/2024 09:21 INDICATION: Vaginal bleeding during first trimester TECHNIQUE: Real-time pelvic ultrasound utilizing both a transvaginal and transabdominal probe was pe rformed. The interpreting radiologist was not present for the study. COMPARISON: None. FINDINGS: The uterus measures 7.1 x 3.3 x 5.4 cm. Endometrial complex measures 4 mm in thickness with no evide nt intrauterine gestational sac. The right ovary measures 2.2 x 2.0 x 2.1 cm. The left ovary measures 3.2 x 1.2 x 1.6 cm. Vascular josselin w identified at both ovaries on color Doppler. There is no free fluid in the pelvis. IMPRESSION: 1. Normal uterus with 4 mm endometrial complex with no evident intrauterine gestational sac.. This co uld be consistent with at least early, failed or ectopic . Recommend follow-up with serial b eta-hCG levels and repeat ultrasound as clinically indicated. Reviewed, dictated and finalized at location A. IMPRESSION: 1. Normal uterus with 4 mm endometrial complex with no evident intrauterine ges tational sac.. This could be consistent with at least early, failed or ectopic . Recommend follow-up with serial beta-hCG levels and repeat ultrasoun d as clinically indicated.
--- OUTSIDE RECORDS SUMMARY | 2024-08-22 08:01 | XMS_ITS | Clinical Summary ---
Author Organization [facility] Address [address] [place] [address] Care Team Providers Care Business Administration Instructor Name Role Phone Jesus Avila MD Primary Care Provider [phone] Source Comments [facility],non-owned Affiliates and Associated Physician Practices is amultiple site organization consisting of ambulatory clinics and hospital sitesin [place], [place], [place] and [place]. This disclosure is being madepursuant to the Care Everywhere program and may not contain all information available regarding this patient. Last updated 18.[facility] Allergies Active Allergy Reactions Criticality Noted Date [...] Sex Assigned at Female 07/02/2024 1:19 PM ASTRONOMY PROFESSOR Legal Sex Female 9:38 AM ASTRONOMY PROFESSOR Gender Identity Female 07/02/2024 1:19 PM ASTRONOMY PROFESSOR Sexual Orientation Straight 07/02/2024 1: 19 PM ASTRONOMY PROFESSOR Last Filed Vital Signs Vital Sign Reading Time Taken Comments Blood Pressure 127/80 07/05/2022 10:56 AM ASTRONOMY PROFESSOR Pulse 93 07/05/2022 10:56 AM ASTRONOMY PROFESSOR Temperature 37 C (98.6 F) 07/05/2022 10:56 AM ASTRONOMY PROFESSOR Respiratory Rate 18 07/05/2022 10:56 AM ASTRONOMY PROFESSOR Oxygen Saturation 100% 07/05/2022 10:56 AM ASTRONOMY PROFESSOR Inhaled Oxygen Concentration - - Weight 68.9 kg (152 lb) 07/05/2022 10:56 AM ASTRONOMY PROFESSOR Height 152.4 cm (5') 07/05/2022 10:56 AM ASTRONOMY PROFESSOR Body Mass Index 29.69 07/05/2022 10:56 AM ASTRONOMY PROFESSOR Plan of Treatment Health Maintenance Due Date [...] to complete this topic Insurance [address] [place] [id number] [employer] Care Teams Business Administration Instructor Relationship Specialty Start Date End Date Jesus Avila MD [address] [place] [address] PCP - General 07/05/22
--- OUTSIDE RECORDS SUMMARY | 2024-08-22 08:01 | XMS_ITS | Clinical Summary ---
Author Organization [facility] Address [address] [place] [address] Care Team Providers Care Resident Advisor Name Role Phone Jesus Avila MD Primary Care Provider [phone] Allergies Active Allergy Reactions Criticality Noted Date Comments Zdpvqwfmtxcci-Nqqnfdybp-Qn Hives Prochlorperazine Other (see comment) 11/14/2020 Increased Heart Rate Gluten Meal Diarrhea 11/13/2020 Cephalexin Vomiting Medium 11/13/2020 Medications No known medications Active Problems Problem Noted Date Diagnosed Date Pyelonephritis 11/13/2020 Celiac disease ([facility]) 02/22/2015 GERD without esophagitis 04/11/2010 Migraine 04/11/2010 [...] 12:25 AM 11/15/2020 1:32 PM Care Teams Resident Advisor Relationship Specialty Start Date End Date Jesus Avila MD [address] [place] [address] PCP - General FAMILY PRACTICE 11/24/20
--- OUTSIDE RECORDS SUMMARY | 2024-08-22 08:01 | XMS_ITS | Encounter Summary ---
Author Organization [facility] Health Address [address] [place] [address] Care Team Providers Care Ground Hand Name Role Phone Jesus Avila MD Primary Care Provider [phone] Encounter Details Date Type Department Care Team (Late st Contact Info) Description 02/26/2013 [facility] Outpatient Visit CG DEFAULT [address] [place] [address] Unknown, Provider Social History Tobacco Use Types Packs/Day Years Used Date Smoking Tobacco: Never Assessed Comments No Sex and Gender Information Value Date Recorded Sex Assigned at Female 07/02/2024 1:19 PM BOILER COVERER HELPER Legal Sex Female 9:38 AM BOILER COVERER HELPER Gender Identity Female 07/02/2024 1:19 PM BOILER COVERER HELPER Sexual Orientation Straight 07/02/2024 1: 19 PM BOILER COVERER HELPER documented as of this encounter Plan of Treatment Not on file documented as of this encounter Visit Diagnoses Not on filedocumented in this encounter Care Teams Ground Hand Relationship Specialty Start Date End Date Jesus Avila MD [address] [place] [address] PCP - General 07/05/22 documented as of this encounter
[2024-08-22 08:06] VITALS: BP 133/88; PULSE 128; RESP 20; TEMP 36.7; O2SAT 100
--- NOTE | 2024-08-22 08:17 | ED_ITS ---
HPI - General Adult General Chief complaint: Abdominal Pain Stated complaint: PREG ABD PAIN Time Seen by Provider: 08/22/24 08:04 History of Present Illness HPI narrative: 28-year-old female presents to the emergency department for evaluation for abdominal pain during . Patient states she is approximately 4-5 weeks and has had very low HCG levels. Patient has been following up with Dr. Hinkle patient states that her initial HCG was 17, then 18 and was 43 a few days ago. Patient began having vaginal bleeding and lower abdominal cramping. Patient states she is concerned about a possible ectopic . Patient has no prior history of ectopic . Patient does have a history of a miscarriage in May. Related Data Home Medications ?Medication ?Instructions ?Recorded ?Confirmed ?Last Taken ?Type docosahexaenoic acid 200 mg 200 mg PO DAILY 04/13/24 06/11/24 Unknown History capsule ( DHA) ferrous sulfate 325 mg (65 mg 325 mg PO DAILY 04/13/24 06/11/24 Unknown History iron) tablet (FeroSul) Allergies Allergy/AdvReac Type Severity Reaction Status Date / Time amoxicillin (From Augmentin) Allergy Intermediate Vomiting Verified 08/22/24 08:00 clavulanic acid (From Allergy Intermediate Vomiting Verified 08/22/24 08:00 Augmentin) chlorpheniramine (From Allergy Mild Hives Verified 08/22/24 08:00 Donatussin) ciprofloxacin (From Cipro) Allergy Mild Hives Verified 08/22/24 08:00 dextromethorphan (From Allergy Mild Hives Verified 08/22/24 08:00 Donatussin) phenylephrine (From Allergy Mild Hives Verified 08/22/24 08:00 Donatussin) cephalexin (From Keflex) AdvReac Intermediate Vomiting Verified 08/22/24 08:00 gluten AdvReac Intermediate Gastrointestinal Verified 08/22/24 08:00 Upset prochlorperazine (From AdvReac Intermediate Palpitation Verified 08/22/24 08:00 Compazine) s sulfamethoxazole (From AdvReac Mild Nausea and Verified 08/22/24 08:00 Bactrim) Vomiting trimethoprim (From Bactrim) AdvReac Mild Nausea and Verified 08/22/24 08:00 Vomiting Review of Systems 2 Review of Systems: All systems reviewed & are unremarkable except as noted in HPI and below PMFSH Past Medical History Medical History Suppression of menses Costochondritis Fibromyalgia Psoriasis Acute arthritis Anxiety Low ferritin level Arthralgia BMI 25.0-25.9,adult Eustachian tube dysfunction BMI 26.0-26.9,adult Hx of psoriatic arthritis BMI 24.0-24.9, adult BMI 22.0-22.9, adult Celiac disease Surgical History Surgical History H/O dilation and curettage 06/15/2024 suction d&c H/O endoscopy Hx of cholecystectomy Family History Family History Father Hypertension Diabetes mellitus Obesity Mother Depression Thyroid cancer Thyroid disorder Sibling Thyroid disorder COVID-19 Hypertension Social History Social History Smoking status: Never smoker Second hand tobacco smoke exposure: No Alcohol intake: never Substance use: never Substance use type: does not use Do You Feel Safe in your Home?: Yes Lack of Transportation: No Lack of Food: Never True Current Housing: I Have Housing Concerned About Future Housing: No Difficulty Paying Gas/Electric Bills: No Difficulty Paying for Meds: No Currently Unemployed: No Education: Bachelor's Degree Difficulty w/ Childcare or Family Care: No Living arrangements: with family Occupation/Education: occupation 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 HEAD: normocephalic, atraumatic. EYES: PERRLA/EOMI, conjunctivae clear. NOSE: Normal no drainage EARS:TMS clear with good light reflex. THROAT: Pharynx clear, no exudate. NECK: Supple. No adenopathy, no masses. RESPIRATORY: Airway patent, respirations nonlabored. Clear to auscultation bilaterally, no rales, rhonchi, wheezing. CARDIOVASCULAR: Regular rate and rhythm without murmurs rubs or gallops. ABDOMINAL: Soft, nontender, nondistended, normal bowel sounds MUSCULOSKELETAL: Moves all extremities. Strength/ROM intact, No edema, No calf tenderness. NEURO: Alert. Cranial nerves II through XII intact. Grossly intact SKIN: Warm, dry. Normal Color Course Vital Signs Vital signs: Vital Signs Temperature 98.0 F 08/22/24 08:06 Pulse Rate 128 H 08/22/24 08:06 Respiratory Rate 20 08/22/24 08:06 Blood Pressure 133/88 08/22/24 08:06 Pulse Oximetry 100 08/22/24 08:06 Oxygen Delivery Room Air 08/22/24 08:06 Temperature 98.0 F 08/22/24 08:06 Pulse Rate 99 08/22/24 10:44 Respiratory Rate 20 08/22/24 10:44 Blood Pressure 123/79 08/22/24 10:44 Pulse Oximetry 100 08/22/24 10:44 Oxygen Delivery Room Air 08/22/24 08:06 Medical Decision Making MDM Narrative Medical decision making narrative: 28-year-old female presents to the emergency department for evaluation for low abdominal discomfort vaginal bleeding during early . Patient is currently afebrile with no leukocytosis and a stable hemoglobin of 14.4. Patient has a blood type of O-positive with an INR 1.0. No acute abnormalities on the patient's CMP and patient's beta hCG is increasing to 62.94. Ultrasound showed no evidence an ectopic but also found no definitive within the uterus. Case was discussed with Dr. Hutchins and patient will continue have close follow-up with Dr. Hinkle. Patient family updated on the results of the workup and plan for close follow-up and reasons to return to the emergency department. Differential Diagnosis Differential Diagnosis: Ectopic , failed , early Vital Signs Vital Signs: Vital Signs Temperature 98.0 F 08/22/24 08:06 Pulse Rate 128 H 08/22/24 08:06 Respiratory Rate 20 08/22/24 08:06 Blood Pressure 133/88 08/22/24 08:06 Pulse Oximetry 100 08/22/24 08:06 Oxygen Delivery Room Air 08/22/24 08:06 Temperature 98.0 F 08/22/24 08:06 Pulse Rate 99 08/22/24 10:44 Respiratory Rate 20 08/22/24 10:44 Blood Pressure 123/79 08/22/24 10:44 Pulse Oximetry 100 08/22/24 10:44 Oxygen Delivery Room Air 08/22/24 08:06 Lab Data Lab results reviewed: Yes I reviewed the patient's lab results. 08/22/24 08:28 08/22/24 08:28 Labs: Lab Results 08/22/24 Range/Units 08:28 WBC 7.5 (4.5-10.0) K/mm3 RBC 4.88 (4.2-5.4) M/mm3 Hgb 14.4 (12.0-15.0) g/dL Hct 44.4 (37.0-47.0) % MCV 91.0 (80-100) fl MCH 29.5 (26-34) pg MCHC 32.4 (32-36) g/dl RDW 12.4 (11.5-14.5) % Plt Count 277 (150-375) k/mm3 MPV 11.3 H (7.4-10.4) fl Immature Gran % (Auto) 0.5 (0-0.5) % Neut % (Auto) 65.9 (45.5-73.1) % Lymph % (Auto) 23.6 (18.3-44.2) % [place] % (Auto) 7.6 (2.6-8.5) % Eos % (Auto) 2.0 (0-4.4) % Baso % (Auto) 0.4 (0.2-1.2) % Lymph # (Auto) 1.77 (0.9-3.2) K/mm3 [place] # (Auto) 0.6 (0.1-0.6) K/mm3 Eos # (Auto) 0.2 (0-0.3) K/mm3 Baso # (Auto) 0.0 (0.0-0.1) K/mm3 Abs Immat Gran (auto) 0.04 H (0.00-0.031) K/mm3 Absolute Neuts (auto) 4.9 (1.3-6.7) K/mm3 Absolute Nucleated RBC 0.000 (0.0-0.012) K/mm3 Nucleated RBC % 0.0 (0.0-0.2) % PT 13.8 (11.1-14.7) Seconds INR 1.0 APTT 28.0 (22.3-36.8) Seconds Sodium 141 (137-145) mmol/L Potassium 3.9 (3.4-5.0) mmol/L Chloride 103 (98-107) mmol/L Carbon Dioxide 25 (22-30) mmol/L Anion Gap 13 H (4-12) mmol/L BUN 9 (7-17) mg/dL Creatinine 0.72 (0.7-1.0) mg/dL Estim Creat Clear Calc 84 ml/min Estimated GFR > 60 (59 - ) Glucose 86 (65-110) mg/dL Calcium 10.5 H (8.4-10.2) mg/dL Total Bilirubin 0.8 (0.2-1.3) mg/dL AST 28 (14-36) U/L ALT 29 (6-35) U/L Alkaline Phosphatase 66 (38-126) U/L Total Protein 9.0 H (6.3-8.2) g/dL Albumin 5.1 (3.5-5.1) g/dL Beta HCG, Quant 62.94 mIU/ML Blood Type O Positive Antibody Screen Negative Screen TNP Baby's Blood Type TNP Baby's WILBERT TNP Doses of RhIg Required 0 Imaging Data Radiologist's impression: Impressions Ultrasound 08/22/24 09:22 IMPRESSION: 1. Normal uterus with 4 mm endometrial complex with no evident intrauterine gestational sac.. This could be consistent with at least early, failed or ectopic . Recommend follow-up with serial beta-hCG levels and repeat ultrasound as clinically indicated. Discharge Plan Discharge Clinical Impression: Vaginal bleeding affecting early Patient Disposition: Home Condition: Stable Instructions: Antibiotic Form, Threatened Miscarriage (ED) Additional Instructions: Continue to have close follow-up with OB Gyne. If you have any worsening symptoms please call or return to the emergency department. Drink plenty fluids and take Tylenol for pain control. Patient Language: Cymraes Prescriptions: No Action nitrofurantoin monohyd/m-cryst [Macrobid] 100 mg capsule 100 mg PO Q12H 7 Days Qty: 14 0RF Rx Instructions: must administer with a meal/food prednisone 20 mg tablet 20 mg PO DAILY 5 Days Qty: 5 0RF ondansetron 4 mg tablet,disintegrating 4 mg PO Q6H PRN (Reason: nausea and vomiting) Qty: 30 2RF pyridoxine (vitamin B6) 25 mg tablet 25 mg PO TID Qty: 120 1RF magnesium oxide 400 mg magnesium capsule 400 mg PO DAILY Qty: 90 2RF Unisom (doxylamine) 25 mg tablet 12.5 mg PO TID Qty: 90 1RF ferrous sulfate [FeroSul] 325 mg (65 mg iron) tablet 325 mg PO DAILY DHA 200 mg capsule 200 mg PO DAILY acetaminophen 500 mg tablet 1,000 mg PO TID Qty: 60 0RF ibuprofen 800 mg tablet 800 mg PO TID Qty: 30 0RF Follow-up/Referrals: Jesus Avila MD [Primary Care Provider] -
[2024-08-22 08:34] LABS: Basophils Percent Auto 0.4 % (0.2-1.2); Eosinophils Absolute Auto 0.2 K/mm3 (0-0.3); Hematocrit 44.4 % (37.0-47.0); Hemoglobin 14.4 g/dL (12.0-15.0); Immature Granulocyte Absolute 0.04 K/mm3 (0.00-0.031); Immature Granulocyte Percent A 0.5 % (0-0.5); Lymphocytes Absolute Auto 1.77 K/mm3 (0.9-3.2); Lymphocytes Percent Auto 23.6 % (18.3-44.2); Mean Corpuscular HGB Conc 32.4 g/dl (32-36); Mean Corpuscular Hemoglobin 29.5 pg (26-34); Mean Platelet Volume 11.3 fl (7.4-10.4); Monocytes Absolute Auto 0.6 K/mm3 (0.1-0.6); Monocytes Percent Auto 7.6 % (2.6-8.5); Neutrophils Absolute Auto 4.9 K/mm3 (1.3-6.7); Neutrophils Percent Auto 65.9 % (45.5-73.1); Platelet Count Result 277 k/mm3 (150-375); Red Blood Count 4.88 M/mm3 (4.2-5.4); Red Cell Distribution Width 12.4 % (11.5-14.5); White Blood Count 7.5 K/mm3 (4.5-10.0)
--- OUTSIDE RECORDS SUMMARY | 2024-08-22 08:55 | XMS_ITS | Encounter Summary ---
Author Organization [facility] Address [address] [place] [address] Care Team Providers Care Supervisor Bit And Shank Department Name Role Phone Jesus Avila MD Primary Care Provider Encounter Details Date Type Department Care Team (Late st Contact Info) Description 02/26/2013 [facility] Outpatient Visit CG DEFAULT [address] [facility] [place] [address] Unknown, Provider Social History Tobacco Use Types Packs/Day Years Used Date Smoking Tobacco: Never Assessed Comments No Sex and Gender Information Value Date Recorded Sex Assigned at Female 07/02/2024 1:19 PM CMO & PRESIDENT Legal Sex Female 9:38 AM CMO & PRESIDENT Gender Identity Female 07/02/2024 1:19 PM CMO & PRESIDENT Sexual Orientation Straight 07/02/2024 1: 19 PM CMO & PRESIDENT documented as of this encounter Plan of Treatment Not on file documented as of this encounter Visit Diagnoses Not on filedocumented in this encounter Care Teams Supervisor Bit And Shank Department Relationship Specialty Start Date End Date Jesus Avila MD [address] [place] [address] PCP - General 07/05/22 documented as of this encounter
--- OUTSIDE RECORDS SUMMARY | 2024-08-22 08:55 | XMS_ITS | Clinical Summary ---
Author Organization [facility] Address [address] [place] [address] Care Team Providers Care Solar Energy Technician Name Role Phone Jesus Avila MD Primary Care Provider [phone] Allergies Active Allergy Reactions Criticality Noted Date Comments Exdfiebuyhfor-Ivhemezie-Qd Hives Prochlorperazine Other (see comment) 11/14/2020 Increased Heart Rate Gluten Meal Diarrhea 11/13/2020 Cephalexin Vomiting Medium 11/13/2020 Medications No known medications Active Problems Problem Noted Date Diagnosed Date Pyelonephritis 11/13/2020 Celiac disease ([facility]) 02/22/2015 GERD without esophagitis [...] independently General No Carolann Zhou, RN Insurance [address] [place] [id number] [facility] Advance Directives * Full Code (Latest Code Status on File) Date Activated Date Inactivated Comments 11/14/2020 12:25 AM 11/15/2020 1:32 PM Care Teams Solar Energy Technician Relationship Specialty Start Date End Date Jesus Avila MD [address] [place] [address] PCP - General FAMILY PRACTICE 11/24/20
--- OUTSIDE RECORDS SUMMARY | 2024-08-22 08:55 | XMS_ITS | Clinical Summary ---
Author Organization [facility] Address [address] [facility] [place] [address] Care Team Providers Care Medicaid Billing Specialist Name Role Phone Jesus Avila MD Primary Care Provider [phone] Source Comments [facility],non-owned Affiliates and Associated Physician Practices is amultiple site organization consisting of ambulatory clinics and hospital sitesin [place], [place], [place] and [place]. This disclosure is being madepursuant to the Care Everywhere program and may not contain all information available regarding this patient. Last updated 18.[facility] Allergies Active Allergy Reactions [...] Sex Assigned at Female 07/02/2024 1:19 PM SCIENTIFIC GLASS BLOWER Legal Sex Female 9:38 AM SCIENTIFIC GLASS BLOWER Gender Identity Female 07/02/2024 1:19 PM SCIENTIFIC GLASS BLOWER Sexual Orientation Straight 07/02/2024 1: 19 PM SCIENTIFIC GLASS BLOWER Last Filed Vital Signs Vital Sign Reading Time Taken Comments Blood Pressure 127/80 07/05/2022 10:56 AM SCIENTIFIC GLASS BLOWER Pulse 93 07/05/2022 10:56 AM SCIENTIFIC GLASS BLOWER Temperature 37 C (98.6 F) 07/05/2022 10:56 AM SCIENTIFIC GLASS BLOWER Respiratory Rate 18 07/05/2022 10:56 AM SCIENTIFIC GLASS BLOWER Oxygen Saturation 100% 07/05/2022 10:56 AM SCIENTIFIC GLASS BLOWER Inhaled Oxygen Concentration - - Weight 68.9 kg (152 lb) 07/05/2022 10:56 AM SCIENTIFIC GLASS BLOWER Height 152.4 cm (5') 07/05/2022 10:56 AM SCIENTIFIC GLASS BLOWER Body Mass Index 29.69 07/05/2022 10:56 AM SCIENTIFIC GLASS BLOWER Plan of Treatment Health Maintenance Due Date [...] to complete this topic Insurance [address] [place] [id number] [employer] Care Teams Medicaid Billing Specialist Relationship Specialty Start Date End Date Jesus Avila MD [address] [place] [address] PCP - General 07/05/22
[2024-08-22 08:58] LABS: Alanine Aminotransferase 29 U/L (6-35); Albumin Level 5.1 g/dL (3.5-5.1); Alkaline Phosphatase 66 U/L (38-126); Anion Gap 13 mmol/L (4-12); Aspartate Amino Transferase 28 U/L (14-36); Bilirubin,Total 0.8 mg/dL (0.2-1.3); Blood Urea Nitrogen 9 mg/dL (7-17); Calcium 10.5 mg/dL (8.4-10.2); Carbon Dioxide 25 mmol/L (22-30); Chloride 103 mmol/L (98-107); Estimated CRCL calculation 84 ml/min; Estimated Glomerular Filt Rate > 60; Glucose 86 mg/dL (65-110); Potassium 3.9 mmol/L (3.4-5.0); Sodium 141 mmol/L (137-145)
[2024-08-22 09:03] LABS: Prothrombin Time 13.8 Seconds (11.1-14.7)
[2024-08-22 09:14] LABS: Beta HCG Quantitative 62.94 mIU/ML
[2024-08-22 10:13] VITALS: BP 128/76; PULSE 108; RESP 16; O2SAT 100
[2024-08-22 10:44] VITALS: BP 123/79; PULSE 99; RESP 20; O2SAT 100
== END 2024-08-22 10:45 | disposition home or self-care (01) ==
PROVIDERS: Emergency Provider Emergency Medicine; PCP Family Medicine
DX: O20.9 Hemorrhage in early pregnancy, unspecified (principal); O99.891 Other specified diseases and conditions complicating pregnancy; M79.7 Fibromyalgia; O99.711 Diseases of the skin and subcutaneous tissue complicating pregnancy, first trimester; L40.9 Psoriasis, unspecified; L40.50 Arthropathic psoriasis, unspecified; O99.611 Diseases of the digestive system complicating pregnancy, first trimester; K90.0 Celiac disease; Z90.49 Acquired absence of other specified parts of digestive tract; Z3A.01 Less than 8 weeks gestation of pregnancy
CPT/HCPCS: 36415; 76801; 80053; 84702; 85025; 85461; 85610; 85730; 86850; 86900; 86901; 99284

== ENCOUNTER 2024-08-24 10:45 | Outpatient (CLI) | payer OTHER, SELFPAY ==
--- NOTE | ~2024-08-24 | US_ITS ---
EXAMINATION: US OB <=14 wk fetus w TV DATE: 08/24/2024 16:01 CDT INDICATION: Bleeding and cramping COMPARISON: 08/22/2024 and dating back to 05/12/2024 TECHNIQUE: Real-time transabdominal obstetric ultrasound. FINDINGS: 3 para 1 The uterus measures 7.6 x 5.2 x 3.7 cm. No gestational sac is visualized. The endometrial complex measures 2 mm The right ovary measures 1.8 x 2.3 x 3.1 cm. A corpus luteal cyst is identified measuring 15 x 17 x 10 mm. The left ovary measures 3.3 x 1.4 x 1.2 cm. IMPRESSION: No intrauterine gestation is identified. These findings correspond to the serum beta hCG of 63. Reviewed, dictated and finalized at location A.
== END 2024-08-24 10:46 | disposition home or self-care (01) ==
LOC: GOSHIMG 10:45
PROVIDERS: PCP Obstetrics & Gynecology; Visit Provider Obstetrics & Gynecology
DX: O20.9 Hemorrhage in early pregnancy, unspecified (principal); Z3A.00 Weeks of gestation of pregnancy not specified
CPT/HCPCS: 76801; 76817

== ENCOUNTER 2024-08-24 11:12 | Outpatient (CLI) | payer OTHER, SELFPAY ==
--- OUTSIDE RECORDS SUMMARY | 2024-08-24 13:09 | XMS_ITS | Data Portability ---
Author Organization [facility] and S, [facility] Address [address] [place] [address] [place] [address] Assessment No assessment recorded. Plan of Treatment Reminders Order Date Submit Date Provider Last Modified By Organization Details Last Modified Time Details Appointments None recorded. Lab urinalysis , dipstick 2018 [email or web address] [facility], [address] [facility], [place], [address], 16:30:32 Referral None recorded. Procedures None recorded. Surgeries None recorded. Imaging None recorded. Medication Orders Bactrim DS 800 mg-160 mg tablet 2018 INTERFACE [id number], [address] [facility], [place], [place], [id number], 9 16:30:48 phenazopyr idine 200 mg tablet 2018 INTERFACE [id number], [address] [facility], [place], [place], [id number], 9 16:30:48 Patient TargetsNo targets recorded. Patient InstructionsNo instructions recorded. Reason for Referral None Reported. Results Created Date Observation Date Name Description Value Unit Range Abnormal Flag Note LastModifiedBy Organization Detail LastModifiedTime 02/08/2002/07/2019 urina lysis , dipst ick Leukocytes 2+ Not Available [facility] [address] [facility], [place], [address], 02/07/2019 16:25:51 02/08/20 19 02/07/2019 urina lysis , dipst ick Nitrite positi ve Not Available [facility] [address], [place], [address], 02/07/2019 16:25:51 02/08/20 19 02/07/2019 urina lysis , dipst ick Urobilinogen 0.2 Not Available [facility] [address] [place] [address] [place], [place], [address], 02/07/2019 16:25:51 02/08/20 19 02/07/2019 urina lysis , dipst ick Protein Negati ve Not Available [facility] [address] [place] [address] [place], [place], [address], 02/07/2019 16:25:51 02/08/2002/07/2019 urina lysis , dipst ick pH 6.0 Not Available [facility] [address] [place] [address] [place], [place], [address], 02/07/2019 16:25:51 02/08/20 19 02/07/2019 urina lysis , dipst ick Blood 1+ Not Available [facility] [address] [place] [address] [place], [place], [address], 02/07/2019 16:25:51 02/08/20 19 02/07/2019 urina lysis , dipst ick Specific [place] 1.025 Not Available [facility] [address] [place] [address] [place], [place], [address], 02/07/2019 16:25:51 02/08/20 19 02/07/2019 urina lysis , dipst ick Ketone 1+ Not Available [facility] [address] [place] [address] [place], [place], [address], 02/07/2019 16:25:51 02/08/20 19 02/07/2019 urina lysis , dipst ick Bilirubin Negati ve Not Available [facility] [address] [facility], [place], [address], 02/07/2019 16:25:51 02/08/20 19 02/07/2019 urina lysis , dipst ick Glucose Negati ve Not Available [facility] [address] [place] [address], [place], [address], 02/07/2019 16:25:51 02/08/20 19 02/07/2019 urina lysis , dipst ick Appearance Turbid Not Available [facility] [address] [place] [address], [place], [address], 02/07/2019 16:25:51 02/08/20 19 02/07/2019 urina lysis , dipst ick Color Dark Yellow Not Available [facility] [address] [place] [address], [place], [address], 02/07/2019 16:25:51 Result Notes None recorded. Problems Name Problem SNOMED Code Status Onset Date Resolution Date Notes Provider Name and Address Organization Details Recorded Time Acute urinary tract infection 050229502 Active 019 Laurent Dye CREDIT SUPPORT SPECIALIST-C [place], [place] - [facility] and S 9 16:28:08 Problem Notes None recorded. Medical Equipment None Reported. Allergies Allergen ID Allergen Name Allergen Category Reaction Reaction Severity Criticality Documentation Date Start Date Code Code System Note Provider Name and Address Organization Details Recorded Time 9373 chlorphen iramine / dextromet horphan / phenyleph rine medicatio n Not available Not available Not available 02/07/2019 98781 9 RxNorm Not Available Not Available Not [...] Updated DateTime 9 91 /min 97.7 [degF] 60516.8 6 g 152.4 cm 29.3 kg/m2 96 % 96 % 128 mm[Hg] 86 mm[Hg] Rebecca Karen [facility] S 9 16:25:26 Social History None recorded. Functional Status None recorded. Mental Status None recorded. Family History Nothing Reported. Medical History No medical history recorded. Gynecological HistoryNo gynecological history recorded. Obstetrics History GPAL:G 0 P 0 0 0 0 Past Encounters Encounter ID Performer Location Encounter Start Date Encounter Closed Date Diagnosis/Indication Diagnosis SNOMED-CT Code Diagnosis ICD10 Code Diagnosis Note [id number] Laurent MELENDEZ [facility] [address] [place] [address] 02/07/2019 16:13:18 02/07/2019 16:48:34 Acute urinary tract infection 625625399 N39.0 Health Concerns Section Related Observation LastModified by Organization Detai ls LastModified Time None Recorded Concern Status LastModified by Organization Details LastModified Time None Recorded Advance Directives Directive None Recorded Payers Encounter Date Sequence Insurance Name Policy Number Policy Lange Covered Member ID Lange Member ID Guarantor Name 02/07/2019 2 AFSA - [employer]URANCE ( SUPPLEMENT) Jamari Bravo [id number] Brandy Bravo 02/07/2019 1 [facility] () Jamari Bravo [id number] Brandy Bravo Notes Date Note Type Note Provider Name and Address Organization Details Recorded Time 02/07/2019 text/html 23/f here with c/o dysuria, frequency, urgency, and suprapubic tenderness x4 days. Denies c/f/n/v/d. Laurent [facility] and S 02/07/2019 16:31:25 OBGyn Episode No OBEpisode recorded.
--- OUTSIDE RECORDS SUMMARY | 2024-08-24 13:09 | XMS_ITS | Encounter Summary ---
Author Organization [facility] Address [address] [place] [address] Care Team Providers Care Peoplesoft Taleo Manager Name Role Phone Jesus Avila MD Primary Care Provider Encounter Details Date Type Department Care Team (Late st Contact Info) Description 02/26/2013 [facility] Outpatient Visit CG DEFAULT [address] [facility] [place] [address] Unknown, Provider Social History Tobacco Use Types Packs/Day Years Used Date Smoking Tobacco: Never Assessed Comments No Sex and Gender Information Value Date Recorded Sex Assigned at Female 07/02/2024 1:19 PM CHIEF NURSE ANESTHETIST Legal Sex Female 9:38 AM CHIEF NURSE ANESTHETIST Gender Identity Female 07/02/2024 1:19 PM CHIEF NURSE ANESTHETIST Sexual Orientation Straight 07/02/2024 1: 19 PM CHIEF NURSE ANESTHETIST documented as of this encounter Plan of Treatment Not on file documented as of this encounter Visit Diagnoses Not on filedocumented in this encounter Care Teams Peoplesoft Taleo Manager Relationship Specialty Start Date End Date Jesus Avila MD [address] [place] [address] PCP - General 07/05/22 documented as of this encounter
--- OUTSIDE RECORDS SUMMARY | 2024-08-24 13:09 | XMS_ITS | Clinical Summary ---
Author Organization [facility] Address [address] [place] [address] Care Team Providers Care Test Case Developer Name Role Phone Jesus Avila MD Primary Care Provider [phone] Allergies Active Allergy Reactions Criticality Noted Date Comments Qshyzpqlkpmwe-Qcgpxvawm-Ak Hives Prochlorperazine Other (see comment) 11/14/2020 Increased Heart Rate Gluten Meal Diarrhea 11/13/2020 Cephalexin Vomiting Medium 11/13/2020 Medications No known medications Active Problems Problem Noted Date Diagnosed Date Pyelonephritis 11/13/2020 Celiac disease ([facility]) 02/22/2015 GERD without esophagitis 04/11/2010 Migraine 04/11/2010 [...] 12:25 AM 11/15/2020 1:32 PM Care Teams Test Case Developer Relationship Specialty Start Date End Date Jesus Avila MD [address] [place] [address] PCP - General FAMILY PRACTICE 11/24/20
--- OUTSIDE RECORDS SUMMARY | 2024-08-24 13:09 | XMS_ITS | Clinical Summary ---
Author Organization [facility] Address [address] [facility] [place] [address] Care Team Providers Care Rotary Screen Printing Machine Operator Name Role Phone Jesus Avila MD Primary Care Provider [phone] Source Comments [facility],non-owned Affiliates and Associated Physician Practices is amultiple site organization consisting of ambulatory clinics and hospital sitesin [place], [place], [place] and [place]. This disclosure is being madepursuant to the Care Everywhere program and may not contain all information available regarding this patient. Last updated 18.[facility] Allergies Active Allergy Reactions Criticality Noted Date [...] Sex Assigned at Female 07/02/2024 1:19 PM DIRECTOR OF SOFTWARE ENGINEERING Legal Sex Female 9:38 AM DIRECTOR OF SOFTWARE ENGINEERING Gender Identity Female 07/02/2024 1:19 PM DIRECTOR OF SOFTWARE ENGINEERING Sexual Orientation Straight 07/02/2024 1: 19 PM DIRECTOR OF SOFTWARE ENGINEERING Last Filed Vital Signs Vital Sign Reading Time Taken Comments Blood Pressure 127/80 07/05/2022 10:56 AM DIRECTOR OF SOFTWARE ENGINEERING Pulse 93 07/05/2022 10:56 AM DIRECTOR OF SOFTWARE ENGINEERING Temperature 37 C (98.6 F) 07/05/2022 10:56 AM DIRECTOR OF SOFTWARE ENGINEERING Respiratory Rate 18 07/05/2022 10:56 AM DIRECTOR OF SOFTWARE ENGINEERING Oxygen Saturation 100% 07/05/2022 10:56 AM DIRECTOR OF SOFTWARE ENGINEERING Inhaled Oxygen Concentration - - Weight 68.9 kg (152 lb) 07/05/2022 10:56 AM DIRECTOR OF SOFTWARE ENGINEERING Height 152.4 cm (5') 07/05/2022 10:56 AM DIRECTOR OF SOFTWARE ENGINEERING Body Mass Index 29.69 07/05/2022 10:56 AM DIRECTOR OF SOFTWARE ENGINEERING Plan of Treatment Health Maintenance Due Date [...] to complete this topic Insurance [address] [place] [id number] [employer] Address: [facility] [id number] [place] [address] [employer] Care Teams Rotary Screen Printing Machine Operator Relationship Specialty Start Date End Date Jesus Avila MD [address] [place] [address] PCP - General 07/05/22
[2024-08-24 19:18] LABS: Beta HCG Quantitative 80.15 mIU/ML
== END 2024-08-24 11:13 | disposition home or self-care (01) ==
LOC: ANHGOSHLAB 11:13
PROVIDERS: PCP Obstetrics & Gynecology; Visit Provider Obstetrics & Gynecology
DX: O20.9 Hemorrhage in early pregnancy, unspecified (principal); Z3A.00 Weeks of gestation of pregnancy not specified
CPT/HCPCS: 36415; 84702

== ENCOUNTER 2024-08-29 11:35 | Outpatient (CLI) | payer OTHER, SELFPAY ==
[2024-08-29 13:00] LABS: Beta HCG Quantitative 152.01 mIU/ML
--- OUTSIDE RECORDS SUMMARY | 2024-08-29 16:31 | XMS_ITS | Data Portability ---
Author Organization [place] [facility] and S, [facility] Address [address] [place] [address] [place] [address] Assessment No assessment recorded. Plan of Treatment Reminders Order Date Submit Date Provider Last Modified By Organization Details Last Modified Time Details Appointments None recorded. Lab urinalysis , dipstick 2018 [email or web address] [facility], [address] [facility], [place], [address], 16:30:32 Referral None recorded. Procedures None recorded. Surgeries None recorded. Imaging None recorded. Medication Orders Bactrim DS 800 mg-160 mg tablet 2018 INTERFACE [facility]64763, [address], [place], [place], [phone], 9 16:30:48 phenazopyr idine 200 mg tablet 2018 [facility]FACE [facility], [address], [place], [place], [id number], 9 16:30:48 Patient TargetsNo targets recorded. Patient InstructionsNo instructions recorded. Reason for Referral None Reported. Results Created Date Observation Date Name Description Value Unit Range Abnormal Flag Note LastModifiedBy Organization Detail LastModifiedTime 02/08/2002/07/2019 urina lysis , dipst ick Leukocytes 2+ Not Available [facility] [address], [place], [address], 02/07/2019 16:25:51 02/08/20 19 02/07/2019 urina lysis , dipst ick Nitrite positi ve Not Available [facility] [address], [place], [address], 02/07/2019 16:25:51 02/08/20 19 02/07/2019 urina lysis , dipst ick Urobilinogen 0.2 Not Available [facility] [address] [place] [address] [place], [place], [address], 02/07/2019 16:25:51 02/08/20 19 02/07/2019 urina lysis , dipst ick Protein Negati ve Not Available [facility] [address] [place] [address] [place], [place], [address], 02/07/2019 16:25:51 02/08/2002/07/2019 urina lysis , dipst ick pH 6.0 Not Available [facility] [address] [place] [address] [place], [place], [address], 02/07/2019 16:25:51 02/08/20 19 02/07/2019 urina lysis , dipst ick Blood 1+ Not Available [facility] [address] [place] [address] [place], [place], [address], 02/07/2019 16:25:51 02/08/20 19 02/07/2019 urina lysis , dipst ick Specific [place] 1.025 Not Available [facility] [address] [place] [address] [address], [place], [address], 02/07/2019 16:25:51 02/08/20 19 02/07/2019 urina lysis , dipst ick Ketone 1+ Not Available [facility] [address] [place] [address] [place], [place], [address], 02/07/2019 16:25:51 02/08/20 19 02/07/2019 urina lysis , dipst ick Bilirubin Negati ve Not Available [facility] [address], [place], [address], 02/07/2019 16:25:51 02/08/20 19 02/07/2019 urina lysis , dipst ick Glucose Negati ve Not Available [facility] [address] [place] [address], [place], [address], 02/07/2019 16:25:51 02/08/2002/07/2019 urina lysis , dipst ick Appearance Turbid Not Available [facility] [address] [place] [address] Rd, [place], [address], 02/07/2019 16:25:51 02/08/2002/07/2019 urina lysis , dipst ick Color Dark Yellow Not Available [facility] [address] [place] [address], [place], [address], 02/07/2019 16:25:51 Result Notes None recorded. Problems Name Problem SNOMED Code Status Onset Date Resolution Date Notes Provider Name and Address Organization Details Recorded Time Acute urinary tract infection 341209147 Active 019 Laurent MELENDEZ [facility] and S 9 16:28:08 Problem Notes None recorded. Medical Equipment None Reported. Allergies Allergen ID Allergen Name Allergen Category Reaction Reaction Severity Criticality Documentation Date Start Date Code Code System Note Provider Name and Address Organization Details Recorded Time 9373 chlorphen iramine / dextromet horphan / phenyleph rine medicatio n Not available Not available Not available 02/07/2019 92608 9 RxNorm [facility] 16:25:42 Medications Name Sig Start Date Stop Date [...] Updated DateTime 9 91 /min 97.7 [degF] 40084.8 6 g 152.4 cm 29.3 kg/m2 96 % 96 % 128 mm[Hg] 86 mm[Hg] Rebecca Jones [facility] and S 9 16:25:26 Social History None recorded. Functional Status None recorded. Mental Status None recorded. Family History Nothing Reported. Medical History No medical history recorded. Gynecological HistoryNo gynecological history recorded. Obstetrics History GPAL:G 0 P 0 0 0 0 Past Encounters Encounter ID Performer Location Encounter Start Date Encounter Closed Date Diagnosis/Indication Diagnosis SNOMED-CT Code Diagnosis ICD10 Code Diagnosis Note [id number] LAURENT SHERIDAN NP [facility] [address] [place] [address] 02/07/2019 16:13:18 02/07/2019 16:48:34 Acute urinary tract infection 580910543 N39.0 Health Concerns Section Related Observation LastModified by Organization Detai ls LastModified Time None Recorded Concern Status LastModified by Organization Details LastModified Time None Recorded Advance Directives Directive None Recorded Payers Encounter Date Sequence Insurance Name Policy Number Policy Lange Covered Member ID Lange Member ID Guarantor Name 02/07/2019 2 AFSA - [employer] INSURANCE ( SUPPLEMENT) Jamari Bravo [id number] Brandy Bravo 02/07/[address] [facility] () Jamari Bravo [id number] Brandy Bravo Notes Date Note Type Note Provider Name and Address Organization Details Recorded Time 02/07/2019 text/html 23/f here with c/o dysuria, frequency, urgency, and suprapubic tenderness x4 days. Denies c/f/n/v/d. Laurent PERSAUDP-C della [facility] and S 02/07/2019 16:31:25 OBGyn Episode No OBEpisode recorded.
--- OUTSIDE RECORDS SUMMARY | 2024-08-29 16:31 | XMS_ITS | Clinical Summary ---
Author Organization [facility] Address [address] [place] [address] Care Team Providers Care Planning Manager Name Role Phone Jesus Avila MD Primary Care Provider [phone] Allergies Active Allergy Reactions Criticality Noted Date Comments Vhtgprwctwdtc-Puykgjpph-Fd Hives Prochlorperazine Other (see comment) 11/14/2020 Increased Heart Rate Gluten Meal Diarrhea 11/13/2020 Cephalexin Vomiting Medium 11/13/2020 Medications No known medications Active Problems Problem Noted Date Diagnosed Date Pyelonephritis 11/13/2020 Celiac disease ([facility]) 02/22/2015 GERD without esophagitis 04/11/2010 Migraine [...] 12:25 AM 11/15/2020 1:32 PM Care Teams Planning Manager Relationship Specialty Start Date End Date Jesus Avila MD [address] [address] PCP - General FAMILY PRACTICE 11/24/20
--- OUTSIDE RECORDS SUMMARY | 2024-08-29 16:31 | XMS_ITS | Encounter Summary ---
Author Organization [facility] Health Address [address] [place] [address] Care Team Providers Care Special Day Class Teacher Name Role Phone Jesus Avila MD Primary Care Provider Encounter Details Date Type Department Care Team (Late st Contact Info) Description 02/26/2013 [facility] Outpatient Visit CG DEFAULT [address] [facility] ([place], [place]). [place] [address] Unknown, Provider Social History Tobacco Use Types Packs/Day Years Used Date Smoking Tobacco: Never Assessed Comments No Sex and Gender Information Value Date Recorded Sex Assigned at Female 07/02/2024 1:19 PM FORKLIFT OPERATOR Legal Sex Female 9:38 AM FORKLIFT OPERATOR Gender Identity Female 07/02/2024 1:19 PM FORKLIFT OPERATOR Sexual Orientation Straight 07/02/2024 1: 19 PM FORKLIFT OPERATOR documented as of this encounter Plan of Treatment Not on file documented as of this encounter Visit Diagnoses Not on filedocumented in this encounter Care Teams Special Day Class Teacher Relationship Specialty Start Date End Date Jesus Avila MD [address] [place] [address] PCP - General 07/05/22 documented as of this encounter
--- OUTSIDE RECORDS SUMMARY | 2024-08-29 16:31 | XMS_ITS | Clinical Summary ---
Author Organization [facility] Address [address] [place] [address] Care Team Providers Care Airplane Mechanic Name Role Phone Jesus Avila MD Primary Care Provider [phone] Source Comments [facility],non-owned Affiliates and Associated Physician Practices is amultiple site organization consisting of ambulatory clinics and hospital sitesin [place], [place], [place] and [place]. This disclosure is being madepursuant to the Care Everywhere program and may not contain all information available regarding this patient. Last updated 18.[facility] Allergies Active Allergy Reactions Criticality Noted [...] Sex Assigned at Female 07/02/2024 1:19 PM TRIMMER SORTER Legal Sex Female 9:38 AM TRIMMER SORTER Gender Identity Female 07/02/2024 1:19 PM TRIMMER SORTER Sexual Orientation Straight 07/02/2024 1: 19 PM TRIMMER SORTER Last Filed Vital Signs Vital Sign Reading Time Taken Comments Blood Pressure 127/80 07/05/2022 10:56 AM TRIMMER SORTER Pulse 93 07/05/2022 10:56 AM TRIMMER SORTER Temperature 37 C (98.6 F) 07/05/2022 10:56 AM TRIMMER SORTER Respiratory Rate 18 07/05/2022 10:56 AM TRIMMER SORTER Oxygen Saturation 100% 07/05/2022 10:56 AM TRIMMER SORTER Inhaled Oxygen Concentration - - Weight 68.9 kg (152 lb) 07/05/2022 10:56 AM TRIMMER SORTER Height 152.4 cm (5') 07/05/2022 10:56 AM TRIMMER SORTER Body Mass Index 29.69 07/05/2022 10:56 AM TRIMMER SORTER Plan of Treatment Health Maintenance Due Date [...] to complete this topic Insurance [address] [place] [id number] [employer] Care Teams Airplane Mechanic Relationship Specialty Start Date End Date Jesus Avila MD [address] [place] [address] PCP - General 07/05/22
== END 2024-08-29 11:36 | disposition home or self-care (01) ==
LOC: ANHLAB 11:36
PROVIDERS: PCP Family Medicine; Visit Provider Obstetrics & Gynecology
DX: O36.80X0 Pregnancy with inconclusive fetal viability, not applicable or unspecified (principal); Z3A.00 Weeks of gestation of pregnancy not specified
CPT/HCPCS: 36415; 84702

== ENCOUNTER 2024-09-01 16:52 | Outpatient (CLI) | payer OTHER, SELFPAY ==
--- OUTSIDE RECORDS SUMMARY | 2024-09-01 16:55 | XMS_ITS | Clinical Summary ---
Author Organization [facility] Address [address] [facility] [place] [address] Care Team Providers Care Dba Developer Name Role Phone Jesus Avila MD Primary Care Provider [phone] Source Comments [facility],non-owned Affiliates and Associated Physician Practices is amultiple site organization consisting of ambulatory clinics and hospital sitesin [place] and [place]. This disclosure is being madepursuant to the Care Everywhere program and may not contain all information available regarding this patient. Last updated 18.[facility] Allergies Active Allergy Reactions Criticality Noted Date [...] Sex Assigned at Female 07/02/2024 1:19 PM CUT OUT OPERATOR Legal Sex Female 9:38 AM CUT OUT OPERATOR Gender Identity Female 07/02/2024 1:19 PM CUT OUT OPERATOR Sexual Orientation Straight 07/02/2024 1: 19 PM CUT OUT OPERATOR Last Filed Vital Signs Vital Sign Reading Time Taken Comments Blood Pressure 127/80 07/05/2022 10:56 AM CUT OUT OPERATOR Pulse 93 07/05/2022 10:56 AM CUT OUT OPERATOR Temperature 37 C (98.6 F) 07/05/2022 10:56 AM CUT OUT OPERATOR Respiratory Rate 18 07/05/2022 10:56 AM CUT OUT OPERATOR Oxygen Saturation 100% 07/05/2022 10:56 AM CUT OUT OPERATOR Inhaled Oxygen Concentration - - Weight 68.9 kg (152 lb) 07/05/2022 10:56 AM CUT OUT OPERATOR Height 152.4 cm (5') 07/05/2022 10:56 AM CUT OUT OPERATOR Body Mass Index 29.69 07/05/2022 10:56 AM CUT OUT OPERATOR Plan of Treatment Health Maintenance Due [...] to complete this topic Insurance [address] [place] [id number] [employer] Care Teams Dba Developer Relationship Specialty Start Date End Date Jesus Avila MD [address] [place] [address] PCP - General 07/05/22
--- OUTSIDE RECORDS SUMMARY | 2024-09-01 16:55 | XMS_ITS | Data Portability ---
Author Organization [place] - [facility] and S, [facility] Address [address] [place] [address] [place] [address] Assessment No assessment recorded. Plan of Treatment Reminders Order Date Submit Date Provider Last Modified By Organization Details Last Modified Time Details Appointments None recorded. Lab urinalysis , dipstick 2018 [email or web address] [facility], [address], [place], [address], 16:30:32 Referral None recorded. Procedures None recorded. Surgeries None recorded. Imaging None recorded. Medication Orders Bactrim DS 800 mg-160 mg tablet 2018 INTERFACE [facility][id number], [address], [place], [place], [phone], 9 16:30:48 phenazopyr idine 200 mg tablet 2018 INTERFACE [id number], [address], [place], [place], [id number], 9 16:30:48 Patient TargetsNo targets recorded. Patient InstructionsNo instructions recorded. Reason for Referral None Reported. Results Created Date Observation Date Name Description Value Unit Range Abnormal Flag Note LastModifiedBy Organization Detail LastModifiedTime 02/08/2002/07/2019 urina lysis , dipst ick Leukocytes 2+ Not Available [facility] [address], [place], [address], 02/07/2019 16:25:51 02/08/20 19 02/07/2019 urina lysis , dipst ick Nitrite positi ve Not Available [facility] [address], [place], [address], 02/07/2019 16:25:51 02/08/20 19 02/07/2019 urina lysis , dipst ick Urobilinogen 0.2 Not Available [facility] [address] [place] [address] [place], [place], [address], 02/07/2019 16:25:51 02/08/20 19 02/07/2019 urina lysis , dipst ick Protein Negati ve Not Available [facility] [address] [place] [address] [place], [place], [address], 02/07/2019 16:25:51 02/08/2002/07/2019 urina lysis , dipst ick pH 6.0 Not Available [facility] [address] [place] [address] [place], [place], [address], 02/07/2019 16:25:51 02/08/20 19 02/07/2019 urina lysis , dipst ick Blood 1+ Not Available [facility] [address] [place] [address] [place], [place], [address], 02/07/2019 16:25:51 02/08/20 19 02/07/2019 urina lysis , dipst ick Specific [place] 1.025 Not Available [facility] [address] [place] [address] [place], [place], [address], 02/07/2019 16:25:51 02/08/20 19 02/07/2019 urina lysis , dipst ick Ketone 1+ Not Available [facility] [address] [place] [address] [place], [place], [address], 02/07/2019 16:25:51 02/08/20 19 02/07/2019 urina lysis , dipst ick Bilirubin Negati ve Not Available [facility] [address], [place], [address], 02/07/2019 16:25:51 02/08/20 19 02/07/2019 urina lysis , dipst ick Glucose Negati ve Not Available [facility] [address] [place] [address], [place], [address], 02/07/2019 16:25:51 02/08/2002/07/2019 urina lysis , dipst ick Appearance Turbid Not Available [facility] [address] [place] [address] Rd, [place], [address], 02/07/2019 16:25:51 02/08/2002/07/2019 urina lysis , dipst ick Color Dark Yellow Not Available [facility] [address] [place] [address], [place], [address], 02/07/2019 16:25:51 Result Notes None recorded. Problems Name Problem SNOMED Code Status Onset Date Resolution Date Notes Provider Name and Address Organization Details Recorded Time Acute urinary tract infection 920826756 Active 019 Laurent MELENDEZ [facility] and S 9 16:28:08 Problem Notes None recorded. Medical Equipment None Reported. Allergies Allergen ID Allergen Name Allergen Category Reaction Reaction Severity Criticality Documentation Date Start Date Code Code System Note Provider Name and Address Organization Details Recorded Time 9373 chlorphen iramine / dextromet horphan / phenyleph rine medicatio n Not available Not available Not available 02/07/2019 08279 9 Rx[facility] 16:25:42 Medications Name Sig [...] Updated DateTime 9 91 /min 97.7 [degF] 62718.8 6 g 152.4 cm 29.3 kg/m2 96 % 96 % 128 mm[Hg] 86 mm[Hg] Rebecca Jones [facility] and S 9 16:25:26 Social History None recorded. Functional Status None recorded. Mental Status None recorded. Family History Nothing Reported. Medical History No medical history recorded. Gynecological HistoryNo gynecological history recorded. Obstetrics History GPAL:G 0 P 0 0 0 0 Past Encounters Encounter ID Performer Location Encounter Start Date Encounter Closed Date Diagnosis/Indication Diagnosis SNOMED-CT Code Diagnosis ICD10 Code Diagnosis Note [id number] LAURENT SHERIDAN NP [facility] [address] [place] [address] 02/07/2019 16:13:18 02/07/2019 16:48:34 Acute urinary tract infection 936331779 N39.0 Health Concerns Section Related Observation LastModified by Organization Detai ls LastModified Time None Recorded Concern Status LastModified by Organization Details LastModified Time None Recorded Advance Directives Directive None Recorded Payers Encounter Date Sequence Insurance Name Policy Number Policy Lange Covered Member ID Lange Member ID Guarantor Name 02/07/2019 2 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 Denies c/f/n/v/d. Laurent PERSAUDP-C della [facility] and S 02/07/2019 16:31:25 OBGyn Episode No OBEpisode recorded.
--- OUTSIDE RECORDS SUMMARY | 2024-09-01 16:55 | XMS_ITS | Clinical Summary ---
Author Organization [facility] Address [address] [place] [address] Care Team Providers Care Yield Clerk Name Role Phone Jesus Avila MD Primary Care Provider [phone] Allergies Active Allergy Reactions Criticality Noted Date Comments Tawddcefenlot-Ncmrkciah-Ne Hives Prochlorperazine Other (see comment) 11/14/2020 Increased Heart Rate Gluten Meal Diarrhea 11/13/2020 Cephalexin Vomiting Medium 11/13/2020 Medications No known medications Active Problems Problem Noted Date Diagnosed Date Pyelonephritis 11/13/2020 Celiac disease ([facility] 02/22/2015 GERD without esophagitis 04/11/2010 Migraine 04/11/2010 [...] independently General No Carolann Zhou, RN Insurance [address] [place] [id number] [facility] BLUE [facility] Advance Directives * Full Code (Latest Code Status on File) Date Activated Date Inactivated Comments 11/14/2020 12:25 AM 11/15/2020 1:32 PM Care Teams Yield Clerk Relationship Specialty Start Date End Date Jesus Avila MD [address] [place] [address] PCP - General FAMILY PRACTICE 11/24/20
--- OUTSIDE RECORDS SUMMARY | 2024-09-01 16:55 | XMS_ITS | Encounter Summary ---
Author Organization [facility] Address [address] [place] [address] Care Team Providers Care Sys Dir Name Role Phone Jesus Avila MD Primary Care Provider [phone] Encounter Details Date Type Department Care Team (Late st Contact Info) Description 02/26/2013 [facility] Outpatient Visit CG DEFAULT [address] [place] [address] Unknown, Provider Social History Tobacco Use Types Packs/Day Years Used Date Smoking Tobacco: Never Assessed Comments No Sex and Gender Information Value Date Recorded Sex Assigned at Female 07/02/2024 1:19 PM WINDOWS SECURITY ENGINEER Legal Sex Female 9:38 AM WINDOWS SECURITY ENGINEER Gender Identity Female 07/02/2024 1:19 PM WINDOWS SECURITY ENGINEER Sexual Orientation Straight 07/02/2024 1: 19 PM WINDOWS SECURITY ENGINEER documented as of this encounter Plan of Treatment Not on file documented as of this encounter Visit Diagnoses Not on filedocumented in this encounter Care Teams Sys Dir Relationship Specialty Start Date End Date Jesus Avila MD [address] [place] [address] PCP - General 07/05/22 documented as of this encounter
[2024-09-01 17:36] LABS: Beta HCG Quantitative 119.07 mIU/ML
== END 2024-09-01 16:53 | disposition home or self-care (01) ==
LOC: ANHLAB 16:52
PROVIDERS: PCP Family Medicine; Visit Provider Obstetrics & Gynecology
DX: O36.80X0 Pregnancy with inconclusive fetal viability, not applicable or unspecified (principal); Z3A.00 Weeks of gestation of pregnancy not specified
CPT/HCPCS: 36415; 84702

== ENCOUNTER 2024-09-08 16:09 | Outpatient (RCR) | payer OTHER, SELFPAY ==
[2024-09-08 17:03] LABS: Beta HCG Quantitative 2.88 mIU/ML
== END 2024-12-07 23:59 | disposition home or self-care (01) ==
LOC: ANHLAB 16:09
PROVIDERS: PCP Family Medicine; Visit Provider Obstetrics & Gynecology
DX: O02.1 Missed abortion (principal)
CPT/HCPCS: 36415; 84702

== ENCOUNTER 2024-09-15 16:46 | Outpatient (CLI) | payer OTHER, SELFPAY ==
--- OUTSIDE RECORDS SUMMARY | 2024-09-15 16:49 | XMS_ITS | Clinical Summary ---
Author Organization [facility] Address [address] [facility] [place] [address] Care Team Providers Care Blacksmith Apprentice Name Role Phone Jesus Avila MD Primary Care Provider [phone] [facility],non-owned Affiliates and Associated Physician Practices is amultiple site organization consisting of ambulatory clinics and hospital sitesin [place], [place], [place] and [place]. This disclosure is being madepursuant to the Care Everywhere program and may not contain all information available regarding this patient. Last updated 18.[facility] Allergies Active Allergy Reactions Criticality Noted [...] Sex Assigned at Female 07/02/2024 1:19 PM GARAGE WORKER Legal Sex Female 9:38 AM GARAGE WORKER Gender Identity Female 07/02/2024 1:19 PM GARAGE WORKER Sexual Orientation Straight 07/02/2024 1: 19 PM GARAGE WORKER Last Filed Vital Signs Vital Sign Reading Time Taken Comments Blood Pressure 127/80 07/05/2022 10:56 AM GARAGE WORKER Pulse 93 07/05/2022 10:56 AM GARAGE WORKER Temperature 37 C (98.6 F) 07/05/2022 10:56 AM GARAGE WORKER Respiratory Rate 18 07/05/2022 10:56 AM GARAGE WORKER Oxygen Saturation 100% 07/05/2022 10:56 AM GARAGE WORKER Inhaled Oxygen Concentration - - Weight 68.9 kg (152 lb) 07/05/2022 10:56 AM GARAGE WORKER Height 152.4 cm (5') 07/05/2022 10:56 AM GARAGE WORKER Body Mass Index 29.69 07/05/2022 10:56 AM GARAGE WORKER Plan of Treatment Health Maintenance Due Date [...] patient's age to complete this topic Insurance SELF PAY NO INSURANCE Member Subscriber Plan / Payer (Ef fective for All Dates) Name:Nichole Horn Member ID:Not on file Relation to Subscriber:Not on file Name:NICHOLE HORN Subscriber ID:Not on file (Home) Address: [address] [place] [address] Payer ID:Not on file Group ID:Not on file Type:Self Pay Address: [place], [place] CIG[place] C[employer] Care Teams Blacksmith Apprentice Relationship Specialty Start Date End Date Jesus Avila MD [address] [place] [address] (work) PCP - General 07/05/22
--- OUTSIDE RECORDS SUMMARY | 2024-09-15 16:49 | XMS_ITS | Data Portability ---
Author Organization [place] - [facility] and S, [facility] Address [address] [place] [address] [place] [address] Assessment No assessment recorded. Plan of Treatment Reminders Order Date Submit Date Provider Last Modified By Organization Details Last Modified Time Details Appointments None recorded. Lab urinalysis , dipstick 2018 [email or web address] [facility], [address], [place], [address], 16:30:32 Referral None recorded. Procedures None recorded. Surgeries None recorded. Imaging None recorded. Medication Orders Bactrim DS 800 mg-160 mg tablet 2018 INTERFACE [facility][id number], [address], [place], [place], [phone], 9 16:30:48 phenazopyr idine 200 mg tablet 2018 INTERFACE [facility][id number], [address], [place], [place], [id number], 9 16:30:48 Patient TargetsNo targets recorded. Patient InstructionsNo instructions recorded. Reason for Referral None Reported. Results Created Date Observation Date Name Description Value Unit Range Abnormal Flag Note LastModifiedBy Organization Detail LastModifiedTime 02/08/2002/07/2019 urina lysis , dipst ick Leukocytes 2+ Not Available [facility] [address], [place], [address], 02/07/2019 16:25:51 02/08/20 19 02/07/2019 urina lysis , dipst ick Nitrite positi ve Not Available [facility] [address], [place], [address], 02/07/2019 16:25:51 02/08/20 19 02/07/2019 urina lysis , dipst ick Urobilinogen 0.2 Not Available [facility] [address] [place] [address] [place], [place], [address], 02/07/2019 16:25:51 02/08/20 19 02/07/2019 urina lysis , dipst ick Protein Negati ve Not Available [facility] [address] [place] [address] [place], [place], [address], 02/07/2019 16:25:51 02/08/2002/07/2019 urina lysis , dipst ick pH 6.0 Not Available [facility] [address] [place] [address] [place], [place], [address], 02/07/2019 16:25:51 02/08/20 19 02/07/2019 urina lysis , dipst ick Blood 1+ Not Available [facility] [address] [place] [address] [place], [place], [address], 02/07/2019 16:25:51 02/08/20 19 02/07/2019 urina lysis , dipst ick Specific [place] 1.025 Not Available [facility] [address] [place] [address] [place], [place], [address], 02/07/2019 16:25:51 02/08/20 19 02/07/2019 urina lysis , dipst ick Ketone 1+ Not Available [facility] [address] [place] [address] [place], [place], [address], 02/07/2019 16:25:51 02/08/20 19 02/07/2019 urina lysis , dipst ick Bilirubin Negati ve Not Available [facility] [address], [place], [address], 02/07/2019 16:25:51 02/08/20 19 02/07/2019 urina lysis , dipst ick Glucose Negati ve Not Available [facility] [address] [place] [address], [place], [address], 02/07/2019 16:25:51 02/08/2002/07/2019 urina lysis , dipst ick Appearance Turbid Not Available [facility] [address] [place] [address] Rd, [place], [address], 02/07/2019 16:25:51 02/08/2002/07/2019 urina lysis , dipst ick Color Dark Yellow Not Available [facility] [address] [place] [address], [place], [address], 02/07/2019 16:25:51 Result Notes None recorded. Problems Name Problem SNOMED Code Status Onset Date Resolution Date Notes Provider Name and Address Organization Details Recorded Time Acute urinary tract infection 987611690 Active 019 Laurent MELENDEZ [facility] and S 9 16:28:08 Problem Notes None recorded. Medical Equipment None Reported. Allergies Allergen ID Allergen Name Allergen Category Reaction Reaction Severity Criticality Documentation Date Start Date Code Code System Note Provider Name and Address Organization Details Recorded Time 9373 chlorphen iramine / dextromet horphan / phenyleph rine medicatio n Not available Not available Not available 02/07/2019 28650 9 RxNorm [facility] 16:25:42 Medications Name [...] Updated DateTime 9 91 /min 97.7 [degF] 76764.8 6 g 152.4 cm 29.3 kg/m2 96 % 96 % 128 mm[Hg] 86 mm[Hg] Rebecca Jones [facility] and S 9 16:25:26 Social History None recorded. Functional Status None recorded. Mental Status None recorded. Family History Nothing Reported. Medical History No medical history recorded. Gynecological HistoryNo gynecological history recorded. Obstetrics History GPAL:G 0 P 0 0 0 0 Past Encounters Encounter ID Performer Location Encounter Start Date Encounter Closed Date Diagnosis/Indication Diagnosis SNOMED-CT Code Diagnosis ICD10 Code Diagnosis Note [id number] [facility] [address] [place] [address] 02/07/2019 16:13:18 02/07/2019 16:48:34 Acute urinary tract infection 870916731 N39.0 Health Concerns Section Related Observation LastModified by Organization Detai ls LastModified Time None Recorded Concern Status LastModified by Organization Details LastModified Time None Recorded Advance Directives Directive None Recorded Payers Encounter Date Sequence Insurance Name Policy Number Policy Lange Covered Member ID Lange Member ID Guarantor Name 02/07/2019 2 [employer] - [employer] ( SUPPLEMENT) Jamari Bravo [id number] Brandy Bravo 02/07/[address] [facility] () Jamari Bravo [id number] Brandy Bravo Notes Date Note Type Note Provider Name and Address Organization Details Recorded Time 02/07/2019 text/html 23/f here with c/o dysuria, frequency, urgency, and suprapubic tenderness x4 days. Denies c/f/n/v/d. Laurent PERSAUDP-C della [facility] and S 02/07/2019 16:31:25 OBGyn Episode No OBEpisode recorded.
--- OUTSIDE RECORDS SUMMARY | 2024-09-15 16:49 | XMS_ITS | Encounter Summary ---
Author Organization [facility] Address [address] [place] [address] Care Team Providers Care Pastry Baker Name Role Phone Jesus Avila MD Primary Care Provider [phone] Encounter Details Date Type Department Care Team (Late st Contact Info) Description 02/26/2013 [facility] Outpatient Visit CG DEFAULT [address] [place] [address] Unknown, Provider Social History Tobacco Use Types Packs/Day Years Used Date Smoking Tobacco: Never Assessed Comments No Sex and Gender Information Value Date Recorded Sex Assigned at Female 07/02/2024 1:19 PM MANAGER MEDIA RELATIONS Legal Sex Female 9:38 AM MANAGER MEDIA RELATIONS Gender Identity Female 07/02/2024 1:19 PM MANAGER MEDIA RELATIONS Sexual Orientation Straight 07/02/2024 1: 19 PM MANAGER MEDIA RELATIONS documented as of this encounter Plan of Treatment Not on file documented as of this encounter Visit Diagnoses Not on filedocumented in this encounter Care Teams Pastry Baker Relationship Specialty Start Date End Date Jesus Avila MD [address] [place] [address] PCP - General 07/05/22 documented as of this encounter
[2024-09-15 17:31] LABS: Beta HCG Quantitative < 2.39 mIU/ML
== END 2024-09-15 16:47 | disposition home or self-care (01) ==
LOC: ANHLAB 16:48
PROVIDERS: PCP Family Medicine; Visit Provider Obstetrics & Gynecology
DX: O02.1 Missed abortion (principal); Z3A.20 20 weeks gestation of pregnancy
CPT/HCPCS: 36415; 84702

== ENCOUNTER 2024-09-15 17:20 | Emergency (ER) | payer OTHER, SELFPAY ==
--- NOTE | 2024-09-15 17:23 | ED_ITS ---
HPI - Female Genitourinary General Chief complaint: Urogenital-Female Stated complaint: Uti Symptoms Time Seen by Provider: 09/15/24 17:30 Source: patient and RN notes reviewed Mode of arrival: ambulatory Limitations: no limitations History of Present Illness HPI Narrative: 28-year-old female presents with concern for dysuria suprapubic pressure for 3 days. Reports history of interstitial cystitis. She has been doing her typical remedies for that without relief. She denies fever, aches, chills, sweats, nausea, vomiting. MD elicited complaint: UTI Related Data Home Medications ?Medication ?Instructions ?Recorded ?Confirmed ?Last Taken ?Type ferrous sulfate 325 mg (65 mg 325 mg PO DAILY 04/13/24 08/25/24 Unknown History iron) tablet (FeroSul) Allergies Allergy/AdvReac Type Severity Reaction Status Date / Time amoxicillin (From Augmentin) Allergy Intermediate Vomiting Verified 09/15/24 17:37 clavulanic acid (From Allergy Intermediate Vomiting Verified 09/15/24 17:37 Augmentin) chlorpheniramine (From Allergy Mild Hives Verified 09/15/24 17:37 Donatussin) ciprofloxacin (From Cipro) Allergy Mild Hives Verified 09/15/24 17:37 dextromethorphan (From Allergy Mild Hives Verified 09/15/24 17:37 Donatussin) phenylephrine (From Allergy Mild Hives Verified 09/15/24 17:37 Donatussin) cephalexin (From Keflex) AdvReac Intermediate Vomiting Verified 09/15/24 17:37 gluten AdvReac Intermediate Gastrointestinal Verified 09/15/24 17:37 Upset prochlorperazine (From AdvReac Intermediate Palpitation Verified 09/15/24 17:37 Compazine) s sulfamethoxazole (From AdvReac Mild Nausea and Verified 09/15/24 17:37 Bactrim) Vomiting trimethoprim (From Bactrim) AdvReac Mild Nausea and Verified 09/15/24 17:37 Vomiting Review of Systems Review of Systems: CONSTITUTIONAL: Denies malaise, chills, sweats, or fever. CARDIOVASCULAR: Denies chest pain, palpitations, or edema. RESPIRATORY: Denies cough or dyspnea. GASTROINTESTINAL: Denies abdominal pain, nausea, vomiting, diarrhea GENITOURINARY: Reports dysuria, frequency, urgency, suprapubic pressure. Denies flank pain or hematuria. SKIN: Denies rash or itching. MUSCULOSKELETAL: Denies back pain or myalgia. All systems reviewed & are unremarkable except as noted in HPI and below PMFSH Past Medical History Medical History Suppression of menses Costochondritis Fibromyalgia Psoriasis Acute arthritis Anxiety Low ferritin level Arthralgia BMI 25.0-25.9,adult Eustachian tube dysfunction BMI 26.0-26.9,adult Hx of psoriatic arthritis BMI 24.0-24.9, adult BMI 22.0-22.9, adult Celiac disease Surgical History Surgical History H/O dilation and curettage 06/15/2024 suction d&c H/O endoscopy Hx of cholecystectomy Family History Family History Father Hypertension Diabetes mellitus Obesity Mother Depression Thyroid cancer Thyroid disorder Sibling Thyroid disorder COVID-19 Hypertension Social History Social History Smoking status: Never smoker Second hand tobacco smoke exposure: No Alcohol intake: never Substance use: never Substance use type: does not use Do You Feel Safe in your Home?: Yes Lack of Transportation: No Lack of Food: Never True Current Housing: I Have Housing Concerned About Future Housing: No Difficulty Paying Gas/Electric Bills: No Difficulty Paying for Meds: No Currently Unemployed: No Education: Bachelor's Degree Difficulty w/ Childcare or Family Care: No Living arrangements: with family Occupation/Education: occupation 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 There is no relevant family history pertinent to the presenting complaint Exam Narrative: GENERAL: Well-appearing, well-nourished, and in no acute distress. HEAD: Normocephalic. EYES: PERRLA, conjunctivae clear. NECK: Supple. No lymphadenopathy CHEST: Clear to auscultation. No respiratory distress. HEART: Regular rate and rhythm. ABDOMEN: Soft, nontender upon palpation, nondistended, normal active bowel sounds, no palpable or pulsatile masses, no guarding. No CVA tenderness SKIN: Warm, dry, no rash. NEURO: Alert and oriented x3. PSYCH: Normal mood and affect Course Course Emergency Course: Patient is aware of diagnosis, understands and agrees to treatment plan. Anticipatory guidance given. Patient agrees to follow-up as directed and is aware of reasons to seek care at the emergency department. Portions of this record may have been created with voice recognition software Level of Care: Express Care Visit Vital Signs Vital signs: Reviewed. MDM - Female Genitourinary MDM Narrative Medical decision making narrative: Exam findings and UA show no acute concerns or changes; patient is non-toxic appearing and is in no distress. Patient is appropriate for outpatient treatment and follow-up. Differential Diagnosis Differential diagnosis: Likely urinary tract infection and cystitis Critical Care Time Critical Care Time Critical Care Time: No Discharge Plan Discharge Clinical Impression: Dysuria Patient Disposition: Home Condition: Stable Instructions: Dysuria (ED) Additional Instructions: We will send a urine culture to the lab; if the culture identifies an organism that requires an antibiotic, you will receive a phone call from an urgent care staff member and an appropriate antibiotic will be prescribed. -Increase water intake. Tylenol/ibuprofen as needed for pain or fever -Follow-up with your primary care provider or seek ER visit if condition worsens with high fever, nausea, vomiting and severe back pain. Patient Language: [place] Prescriptions: No Action magnesium oxide 400 mg magnesium capsule 400 mg PO DAILY Qty: 90 2RF pyridoxine (vitamin B6) 25 mg tablet 25 mg PO TID Qty: 120 1RF ferrous sulfate [FeroSul] 325 mg (65 mg iron) tablet 325 mg PO DAILY acetaminophen 500 mg tablet 1,000 mg PO TID Qty: 60 0RF ibuprofen 800 mg tablet 800 mg PO TID Qty: 30 0RF Follow-up/Referrals: Jesus Avila MD [Primary Care Provider] - Time of Disposition: 17:40
[2024-09-15 17:28] VITALS: BP 135/85; PULSE 107; RESP 16; TEMP 37.4; O2SAT 100
[2024-09-15 17:36] LABS: EDUAAPPEAR Clear; EDUABILI Negative (Negative); EDUABLOOD Negative (Negative); EDUACOLOR1 Yellow; EDUAGLUCOSE Negative (Negative); EDUAKETONE Negative (Negative); EDUALEUKO Negative (Negative); EDUANITRATE Negative (Negative); EDUAPROTEIN Negative (Negative); EDUASPGRAVITY 1.015; EDUAUROBILI 0.2
== END 2024-09-15 17:41 | disposition home or self-care (01) ==
PROVIDERS: Emergency Provider Nurse Practitioner; PCP Family Medicine
DX: R30.0 Dysuria (principal); D64.9 Anemia, unspecified; K90.0 Celiac disease
CPT/HCPCS: 81003; 87086; 99213; G0463

== ENCOUNTER 2024-11-19 16:40 | Outpatient (CLI) | payer OTHER, SELFPAY ==
--- OUTSIDE RECORDS SUMMARY | 2024-11-19 16:56 | XMS_ITS | Clinical Summary ---
Author Organization [facility] Address [address] [place] [address] Care Team Providers Care Patternmaker Plaster Name Role Phone Jesus Avila MD Primary Care Provider [phone] Source Comments [facility],non-owned Affiliates and Associated Physician Practices is amultiple site organization consisting of ambulatory clinics and hospital sitesin [place], [place], [place] and [place]. This disclosure is being madepursuant to the Care Everywhere program and may not contain all information available regarding this patient. Last updated 18.[facility] Allergies Active Allergy Reactions Criticality Noted [...] Sex Assigned at Female 07/02/2024 1:19 PM CHROME POLISHER Legal Sex Female 9:38 AM CHROME POLISHER Gender Identity Female 07/02/2024 1:19 PM CHROME POLISHER Sexual Orientation Straight 07/02/2024 1: 19 PM CHROME POLISHER Last Filed Vital Signs Vital Sign Reading Time Taken Comments Blood Pressure 127/80 07/05/2022 10:56 AM CHROME POLISHER Pulse 93 07/05/2022 10:56 AM CHROME POLISHER Temperature 37 C (98.6 F) 07/05/2022 10:56 AM CHROME POLISHER Respiratory Rate 18 07/05/2022 10:56 AM CHROME POLISHER Oxygen Saturation 100% 07/05/2022 10:56 AM CHROME POLISHER Inhaled Oxygen Concentration - - Weight 68.9 kg (152 lb) 07/05/2022 10:56 AM CHROME POLISHER Height 152.4 cm (5') 07/05/2022 10:56 AM CHROME POLISHER Body Mass Index 29.69 07/05/2022 10:56 AM CHROME POLISHER Plan of Treatment Health Maintenance Due Date Last Done Comments HIV SCREENING 11/28/2010 HEPATITIS C SCREENING 11/24/2013 DTAP/TDAP/TD VACCINES (7 - Td or Tdap) 10/31/2016 10/31/2006, 11/22/2000, 06/02/1997, Additional history exists PAP SMEAR 11/28/2016 COVID-19 VACCINE ( season) 2023 12/23/2020, 12/02/2020 DEPRESSION SCREENING 04/29/2024 INFLUENZA VACCINE (#1) 2024 , 02/20/2020, 01/25/2013, Additional history exists ZOSTER [...] HORN Subscriber ID:Not on file (Home) Address: [address] [place] [address] Payer ID:Not on file Group ID:Not on file Type:Self Pay Address: [place], [place] CIG[employer] Care Teams Patternmaker Plaster Relationship Specialty Start Date End Date Jesus Avila MD [address] [place] [address] (work) PCP - General 07/05/22
--- OUTSIDE RECORDS SUMMARY | 2024-11-19 16:56 | XMS_ITS | Data Portability ---
Author Organization [place] - [facility] and S, [facility] Address [address] [place] [id number] Assessment No assessment recorded. Plan of Treatment Reminders Order Date Submit Date Provider Last Modified By Organization Details Last Modified Time Details Appointments None recorded. Lab urinalysis , dipstick 2018 [email or web address] [facility], [address], [place], [address], 16:30:32 Referral None recorded. Procedures None recorded. Surgeries None recorded. Imaging None recorded. Medication Orders Bactrim DS 800 mg-160 mg tablet 2018 INTERFACE [facility][id number], [address], [place], [place], [phone], 16:30:48 phenazopyr idine 200 mg tablet 2018 019 [facility]FACE [id number], [address], [place], [place], [phone], 16:30:48 Patient TargetsNo targets recorded. Patient InstructionsNo instructions recorded. Reason for Referral None Reported. Results Created Date Observation Date Name Description Value Unit Range Abnormal Flag Note LastModifiedBy Organization Detail LastModifiedTime 02/08/20 19 02/07/2019 urina lysis , dipst ick Leukocytes 2+ Not Available [facility] [address], [place], [address], 02/07/2019 16:25:51 10/12/20 19 02/07/2019 urina lysis , dipst ick Nitrite positi ve Not Available [facility] [address], [place], [address], 02/07/2019 16:25:51 02/08/20 19 02/07/2019 urina lysis , dipst ick Urobilinogen 0.2 Not Available [facility] [address] [place] [address], [place], [address], 02/07/2019 16:25:51 02/08/20 19 02/07/2019 urina lysis , dipst ick Protein Negati ve Not Available [facility] [address] [place] [address], [place], [address], 02/07/2019 16:25:51 02/08/20 19 02/07/2019 urina lysis , dipst ick pH 6.0 Not Available [facility] [address] [place] [address] [place], [place], [address], 02/07/2019 16:25:51 02/08/20 19 02/07/2019 urina lysis , dipst ick Blood 1+ Not Available [facility] [address] [place] [address], [place], [address], 02/07/2019 16:25:51 02/08/20 19 02/07/2019 urina lysis , dipst ick Specific [place] 1.025 Not Available [facility] [address] [place] [address], [place], [address], 02/07/2019 16:25:51 02/08/20 19 02/07/2019 urina lysis , dipst ick Ketone 1+ Not Available [facility] [address] [place] [address], [place], [address], 02/07/2019 16:25:51 02/08/20 19 02/07/2019 urina lysis , dipst ick Bilirubin Negati ve Not Available [facility], [place], [address], 02/07/2019 16:25:51 02/08/20 19 02/07/2019 urina lysis , dipst ick Glucose Negati ve Not Available [facility] [address], [place], [address], 02/07/2019 16:25:51 02/08/20 19 02/07/2019 urina lysis , dipst ick Appearance Turbid Not Available [facility] [address], [place], [address], 02/07/2019 16:25:51 02/08/20 19 02/07/2019 urina lysis , dipst ick Color Dark Yellow Not Available [facility] [address], [place], [address], 02/07/2019 16:25:51 Result Notes None recorded. Problems Name Problem SNOMED Code Status Onset Date Resolution Date Notes Provider Name and Address Organization Details Recorded Time Acute urinary tract infection 634702612 Active 019 Laurent MELENDEZ [facility] and S 9 16:28:08 Problem Notes None recorded. Medical Equipment None Reported. Allergies Allergen ID Allergen Name Allergen Category Reaction Reaction Severity Criticality Documentation Date Start Date Code Code System Note Provider Name and Address Organization Details Recorded Time 9373 chlorphen iramine / dextromet horphan / phenyleph rine medicatio n Not available Not available Not available 02/07/2019 85907 9 RxNorm Rebecca Jones [facility] and S 9 16:25:42 Medications Name Sig [...] in Arterial blood by Pulse oximetry Systolic And Diastolic Provider Name and Address Organization Details Last Updated DateTime 9 91 /min 97.7 [degF] 94999.8 6 g 152.4 cm 29.3 kg/m2 96 % 96 % 128/86 mm[Hg] Rebecca Jones [facility] and S 9 16:25:26 Social History None recorded. Functional Status None recorded. Mental Status None recorded. Family History Nothing Reported. Medical History No medical history recorded. Gynecological HistoryNo gynecological history recorded. Obstetrics History GPAL:G 0 P 0 0 0 0 Past Encounters Encounter ID Performer Location Encounter Start Date Encounter Closed Date Diagnosis/Indication Diagnosis SNOMED-CT Code Diagnosis ICD10 Code Diagnosis Note [id number] LAURENT SHERIDAN NP [facility] [address] [place] [address] 02/07/2019 16:13:18 02/07/2019 16:48:34 Acute urinary tract infection 365701942 N39.0 Health Concerns Section Related Observation LastModified by Organization Detai ls LastModified Time None Recorded Concern Status LastModified by Organization Details LastModified Time None Recorded Advance Directives Directive None Recorded Payers Insurance Date Sequence Insurance Name Policy Number Policy Lange Covered Member ID Lange Member ID Guarantor Name 02/07/2019 2 AFSA - ( SUPPLEMENT) Jamari Bravo [id number] Brandy Bravo 02/07/2019 1 WEST - TRIWEST - PRIME () Jamari Bravo [id number] Brandy Bravo Notes Date Note Type Note Provider Name and Address Organization Details Recorded Time 02/07/2019 text/html ROS as noted in the HPI 23/f here with c/o dysuria, frequency, urgency, and suprapubic tenderness x4 days. Denies c/f/n/v/d. Laurent PERSAUDP-C della [place] - [facility] and S 02/07/2019 16:31:25 OBGyn Episode No OBEpisode recorded.
--- OUTSIDE RECORDS SUMMARY | 2024-11-19 16:56 | XMS_ITS | Clinical Summary ---
Author Organization [facility] Address [address] [place] [address] Care Team Providers Care Sales Service Representative Name Role Phone Jesus Avila MD Primary Care Provider [phone] Allergies Active Allergy Reactions Criticality Noted Date Comments Fmsflresiirta-Zoslvouhm-Dv Hives Prochlorperazine Other (see comment) 11/14/2020 Increased Heart Rate Gluten Meal Diarrhea 11/13/2020 Cephalexin Vomiting Medium 11/13/2020 Medications No known medications Active Problems Problem Noted Date Diagnosed Date Pyelonephritis 11/13/2020 Celiac disease ([facility]) 02/22/2015 GERD without esophagitis 04/11/2010 [...] independently General No Carolann Zhou, RN Insurance [address] [place] [id number] [facility] Advance Directives * Full Code (Latest Code Status on File) Date Activated Date Inactivated Comments 11/14/2020 12:25 AM 11/15/2020 1:32 PM Care Teams Sales Service Representative Relationship Specialty Start Date End Date Jesus Avila MD [address] [place] [address] PCP - General FAMILY PRACTICE 11/24/20
--- OUTSIDE RECORDS SUMMARY | 2024-11-19 16:56 | XMS_ITS | Encounter Summary ---
Author Organization [facility] Address [address] [place] [address] Care Team Providers Care Passenger Conductor Name Role Phone Jesus Avila MD Primary Care Provider [phone] Encounter Details Date Type Department Care Team (Late st Contact Info) Description 02/26/2013 [facility] Outpatient Visit CG DEFAULT [address] [place] [address] Unknown, Provider Social History Tobacco Use Types Packs/Day Years Used Date Smoking Tobacco: Never Assessed Comments No Sex and Gender Information Value Date Recorded Sex Assigned at Female 07/02/2024 1:19 PM SENIOR EMBEDDED SOFTWARE ENGINEER Legal Sex Female 9:38 AM SENIOR EMBEDDED SOFTWARE ENGINEER Gender Identity Female 07/02/2024 1:19 PM SENIOR EMBEDDED SOFTWARE ENGINEER Sexual Orientation Straight 07/02/2024 1: 19 PM SENIOR EMBEDDED SOFTWARE ENGINEER documented as of this encounter Plan of Treatment Not on file documented as of this encounter Visit Diagnoses Not on filedocumented in this encounter Care Teams Passenger Conductor Relationship Specialty Start Date End Date Jesus Avila MD [address] [place] [address] PCP - General 07/05/22 documented as of this encounter
[2024-11-19 18:12] LABS: Thyroid Stimulating Hormone 1.880 uIU/mL (0.465-4.680)
[2024-11-19 21:01] LABS: Hemoglobin A1C 4.8 % (<5.7)
[2024-11-21 13:08] LABS: Anticardiolipin Ab,IgG,Qn <9 GPL U/mL (0-14); Anticardiolipin Ab,IgM,Qn <9 MPL U/mL (0-12)
[2024-11-22 12:07] LABS: PTT-LA 36.4 sec (0.0-43.5)
== END 2024-11-19 16:41 | disposition home or self-care (01) ==
PROVIDERS: PCP Family Medicine
DX: K90.0 Celiac disease (principal); L40.9 Psoriasis, unspecified; M79.7 Fibromyalgia; N30.10 Interstitial cystitis (chronic) without hematuria; O03.9 Complete or unspecified spontaneous abortion without complication; Z31.69 Encounter for other general counseling and advice on procreation
CPT/HCPCS: 36415; 82232; 83036; 84443; 85732; 86147

== ENCOUNTER 2025-01-11 17:04 | Outpatient (CLI) | payer OTHER, SELFPAY ==
[2025-01-11 18:25] LABS: Beta HCG Quantitative 47.36 mIU/ML
--- OUTSIDE RECORDS SUMMARY | 2025-01-11 19:05 | XMS_ITS | Clinical Summary ---
Author Organization [facility] Address [address] [place] [address] Care Team Providers Care Hotshot Superintendent Name Role Phone Jesus Avila MD Primary Care Provider [phone] Source Comments [facility],non-owned Affiliates and Associated Physician Practices is amultiple site organization consisting of ambulatory clinics and hospital sitesin [place], [place], [place] and [place]. This disclosure is being madepursuant to the Care Everywhere program and may not contain all information available regarding this patient. Last updated 18.[facility] Allergies Active Allergy Reactions Criticality Noted [...] Sex Assigned at Female 07/02/2024 1:19 PM SPLIT LEATHER MOSSER Legal Sex Female 9:38 AM SPLIT LEATHER MOSSER Gender Identity Female 07/02/2024 1:19 PM SPLIT LEATHER MOSSER Sexual Orientation Straight 07/02/2024 1: 19 PM SPLIT LEATHER MOSSER Last Filed Vital Signs Vital Sign Reading Time Taken Comments Blood Pressure 127/80 07/05/2022 10:56 AM SPLIT LEATHER MOSSER Pulse 93 07/05/2022 10:56 AM SPLIT LEATHER MOSSER Temperature 37 C (98.6 F) 07/05/2022 10:56 AM SPLIT LEATHER MOSSER Respiratory Rate 18 07/05/2022 10:56 AM SPLIT LEATHER MOSSER Oxygen Saturation 100% 07/05/2022 10:56 AM SPLIT LEATHER MOSSER Inhaled Oxygen Concentration - - Weight 68.9 kg (152 lb) 07/05/2022 10:56 AM SPLIT LEATHER MOSSER Height 152.4 cm (5') 07/05/2022 10:56 AM SPLIT LEATHER MOSSER Body Mass Index 29.69 07/05/2022 10:56 AM SPLIT LEATHER MOSSER Plan of Treatment Health Maintenance Due Date Last Done Comments HIV SCREENING 11/28/2010 HEPATITIS C SCREENING 11/24/2013 DTAP/TDAP/TD VACCINES (7 - Td or Tdap) 10/31/2016 10/31/2006, 11/22/2000, 06/02/1997, Additional history exists PAP SMEAR 11/28/2016 DEPRESSION SCREENING 04/29/2024 COVID-19 VACCINE ( season) 2024 12/23/2020, 12/02/2020 INFLUENZA VACCINE (#1) 2024 , 02/20/2020, 01/25/2013, [...] patient's age to complete this topic Insurance Member Subscriber Plan / Payer (Ef fective 2016-Present) Name:Nichole Horn Relation to Subscriber:Spouse Name:LORENE STOUT Date of :1995 (Home) Address: [address] [place] [id number] Payer ID:[id number] (NAIC) Group ID:Not on file Type:[email or web address] Address: [facility] [id number] [place] [address] Member Subscriber Plan / Payer (Ef fective 2018-Present) Name:Nichole Horn Relation to Subscriber:Spouse Name:LORENE STOUT Date of :1995 (Home) Address: [place] [address] Payer ID:[id number] (NAIC) Group ID:Not on file Type:[email or web address] Address: [facility] [address] [place] [address] SELF PAY NO INSURANCE Member Subscriber Plan / Payer (Ef fective for All Dates) Name:Nichole Horn Member ID:Not on file Relation to Subscriber:Not on file Name:NICHOLE HORN Subscriber ID:Not on file (Home) Address: [address] [place] [address] Payer ID:Not on file Group ID:Not on file Type:Self Pay Address: [place], [place] CIG[employer] Care Teams Hotshot Superintendent Relationship Specialty Start Date End Date Jesus Avila MD [address] [place] [address] (work) PCP - General 07/05/22
--- OUTSIDE RECORDS SUMMARY | 2025-01-11 19:05 | XMS_ITS | Encounter Summary ---
Author Organization [facility] Address [address] [place] [address] Care Team Providers Care Quarter Trimmer Name Role Phone Jesus Avila MD Primary Care Provider [phone] Encounter Details Date Type Department Care Team (Late st Contact Info) Description 02/26/2013 [facility] Outpatient Visit CG DEFAULT [address] [place] [address] Unknown, Provider Social History Tobacco Use Types Packs/Day Years Used Date Smoking Tobacco: Never Assessed Comments No Sex and Gender Information Value Date Recorded Sex Assigned at Female 07/02/2024 1:19 PM SCHOOL HEALTH ASSISTANT Legal Sex Female 9:38 AM SCHOOL HEALTH ASSISTANT Gender Identity Female 07/02/2024 1:19 PM SCHOOL HEALTH ASSISTANT Sexual Orientation Straight 07/02/2024 1: 19 PM SCHOOL HEALTH ASSISTANT documented as of this encounter Plan of Treatment Not on file documented as of this encounter Visit Diagnoses Not on filedocumented in this encounter Care Teams Quarter Trimmer Relationship Specialty Start Date End Date Jesus Avila MD [address] [place] [address] PCP - General 07/05/22 documented as of this encounter
== END 2025-01-11 17:05 | disposition home or self-care (01) ==
LOC: ANHLAB 17:05
PROVIDERS: PCP Family Medicine; Visit Provider Student in an Organized Health Care Education/Training Program
DX: N91.2 Amenorrhea, unspecified (principal)
CPT/HCPCS: 36415; 84702

== ENCOUNTER 2025-01-13 16:30 | Outpatient (CLI) | payer OTHER, SELFPAY ==
--- OUTSIDE RECORDS SUMMARY | 2025-01-13 16:40 | XMS_ITS | Clinical Summary ---
Author Organization [facility] Address [address] [place] [address] Care Team Providers Care Spud Grader Name Role Phone Jesus Avila MD Primary Care Provider [phone] Source Comments [facility],non-owned Affiliates and Associated Physician Practices is amultiple site organization consisting of ambulatory clinics and hospital sitesin [place], [place], [place] and [place]. This disclosure is being madepursuant to the Care Everywhere program and may not contain all information available regarding this patient. Last updated 18.[facility] Allergies Active Allergy Reactions Criticality Noted [...] Sex Assigned at Female 07/02/2024 1:19 PM SOCIAL SERVICE LIAISON Legal Sex Female 9:38 AM SOCIAL SERVICE LIAISON Gender Identity Female 07/02/2024 1:19 PM SOCIAL SERVICE LIAISON Sexual Orientation Straight 07/02/2024 1: 19 PM SOCIAL SERVICE LIAISON Last Filed Vital Signs Vital Sign Reading Time Taken Comments Blood Pressure 127/80 07/05/2022 10:56 AM SOCIAL SERVICE LIAISON Pulse 93 07/05/2022 10:56 AM SOCIAL SERVICE LIAISON Temperature 37 C (98.6 F) 07/05/2022 10:56 AM SOCIAL SERVICE LIAISON Respiratory Rate 18 07/05/2022 10:56 AM SOCIAL SERVICE LIAISON Oxygen Saturation 100% 07/05/2022 10:56 AM SOCIAL SERVICE LIAISON Inhaled Oxygen Concentration - - Weight 68.9 kg (152 lb) 07/05/2022 10:56 AM SOCIAL SERVICE LIAISON Height 152.4 cm (5') 07/05/2022 10:56 AM SOCIAL SERVICE LIAISON Body Mass Index 29.69 07/05/2022 10:56 AM SOCIAL SERVICE LIAISON Plan of Treatment Health Maintenance Due Date [...] HORN Subscriber ID:Not on file (Home) Address: [address] [place] [address] Payer ID:Not on file Group ID:Not on file Type:Self Pay Address: [place], [place] [employer] Care Teams Spud Grader Relationship Specialty Start Date End Date Jesus Avila MD [address] [place] [address] (work) PCP - General 07/05/22
--- OUTSIDE RECORDS SUMMARY | 2025-01-13 16:40 | XMS_ITS | Encounter Summary ---
Author Organization [facility] Health Address [address] [place] [address] Care Team Providers Care Nail Technician Teacher Name Role Phone Jesus Avila MD Primary Care Provider Encounter Details Date Type Department Care Team (Late st Contact Info) Description 02/26/2013 [facility] Outpatient Visit CG DEFAULT [address] [place] [address] Unknown, Provider Social History Tobacco Use Types Packs/Day Years Used Date Smoking Tobacco: Never Assessed Comments No Sex and Gender Information Value Date Recorded Sex Assigned at Female 07/02/2024 1:19 PM SHIFT SUPERVISOR RN Legal Sex Female 9:38 AM SHIFT SUPERVISOR RN Gender Identity Female 07/02/2024 1:19 PM SHIFT SUPERVISOR RN Sexual Orientation Straight 07/02/2024 1: 19 PM SHIFT SUPERVISOR RN documented as of this encounter Plan of Treatment Not on file documented as of this encounter Visit Diagnoses Not on filedocumented in this encounter Care Teams Nail Technician Teacher Relationship Specialty Start Date End Date Jesus Avila MD [address] [place] [address] PCP - General 07/05/22 documented as of this encounter
[2025-01-13 17:28] LABS: Beta HCG Quantitative 146.16 mIU/ML
== END 2025-01-13 16:31 | disposition home or self-care (01) ==
LOC: ANHLAB 16:31
PROVIDERS: PCP Family Medicine; Visit Provider Student in an Organized Health Care Education/Training Program
DX: N91.2 Amenorrhea, unspecified (principal)
CPT/HCPCS: 36415; 84702

== ENCOUNTER 2025-01-30 11:21 | Outpatient (CLI) | payer OTHER, SELFPAY ==
[2025-01-30 11:57] LABS: Hematocrit 36.5 % (37.0-47.0); Hemoglobin 12.4 g/dL (12.0-15.0); Mean Corpuscular HGB Conc 34.0 g/dl (32-36); Mean Corpuscular Hemoglobin 30.0 pg (26-34); Mean Corpuscular Volume 88.4 fl (80-100); Platelet Count Result 247 k/mm3 (150-375); Red Blood Count 4.13 M/mm3 (4.2-5.4); White Blood Count 9.5 K/mm3 (4.5-10.0)
[2025-01-30 12:07] LABS: Alanine Aminotransferase 25 U/L (6-35); Albumin Level 4.3 g/dL (3.5-5.1); Alkaline Phosphatase 60 U/L (38-126); Anion Gap 8 mmol/L (4-12); Aspartate Amino Transferase 28 U/L (14-36); Bilirubin,Total 0.5 mg/dL (0.2-1.3); Blood Urea Nitrogen 8 mg/dL (7-17); Calcium 9.4 mg/dL (8.4-10.2); Carbon Dioxide 21 mmol/L (22-30); Chloride 105 mmol/L (98-107); Estimated Glomerular Filt Rate > 60; Glucose 94 mg/dL (65-110); Potassium 3.6 mmol/L (3.4-5.0); Sodium 134 mmol/L (137-145); Total Protein 7.9 g/dL (6.3-8.2); Uric Acid 3.6 mg/dL (2.5-7.5)
[2025-01-30 12:09] LABS: Total Protein Urine Random 10 mg/dL
[2025-01-30 12:48] LABS: HIV 1/2 Ab P24 Ag Result Negative (Negative)
[2025-01-30 12:50] LABS: Syphilis IgG/IgM Antibody Non-Reactive (Nonreactive)
[2025-01-30 16:57] LABS: Hepatitis B Surface Antigen Negative (Negative)
[2025-01-30 17:02] LABS: Beta HCG Quantitative 39569.00 mIU/ML
[2025-01-31 10:07] LABS: Cytomegalovirus (CMV) Ab, IgG 3.10 U/mL (0.00-0.59)
[2025-02-03 06:07] LABS: Varicella-Zoster Ab, IgG Non Reactive (Non Reactive); Varicella-Zoster Ab, IgM <0.91 index (0.00-0.90)
[2025-02-03 13:08] LABS: Parvovirus B19, IgG 1.9 index (0.0-0.8); Parvovirus B19, IgM 0.3 index (0.0-0.8)
== END 2025-01-30 11:22 | disposition home or self-care (01) ==
LOC: ANHLAB 11:22
PROVIDERS: PCP Family Medicine; Visit Provider Student in an Organized Health Care Education/Training Program
DX: N91.2 Amenorrhea, unspecified (principal); O09.299 Supervision of pregnancy with other poor reproductive or obstetric history, unspecified trimester; Z3A.00 Weeks of gestation of pregnancy not specified
CPT/HCPCS: 36415; 80053; 81050; 82570; 84156; 84550; 84702; 85027; 86593; 86644; 86703; 86747; 86762; 86787; 87086; 87340; G0432

== ENCOUNTER 2025-03-30 17:33 | Emergency (ER) | payer OTHER, SELFPAY ==
--- NOTE | 2025-03-30 17:35 | ED_ITS ---
HPI - Female Genitourinary General Chief complaint: Urogenital-Female Stated complaint: UTI Time Seen by Provider: 03/30/25 17:34 Source: patient Mode of arrival: ambulatory Limitations: no limitations History of Present Illness HPI Narrative: Patient is a 29-year-old female, 15 weeks and started having burning with urination and urine feeling hot this morning. denies any fever, chills, nausea, vomiting, diarrhea, low back pain. has not taken anything for symptoms. Patient states she has been seen by urology and they think she has interstitial cystitis. MD elicited complaint: dysuria Related Data Home Medications ?Medication ?Instructions ?Recorded ?Confirmed ?Last Taken ?Type ferrous sulfate 325 mg (65 mg 325 mg PO DAILY 04/13/24 03/30/25 Unknown History iron) tablet (FeroSul) docosahexaenoic acid 200 mg mg PO 10/19/24 03/22/25 Un known History capsule ( DHA) Allergies Allergy/AdvReac Type Severity Reaction Status Date / Time amoxicillin (From Augmentin) Allergy Intermediate Vomiting Verified 03/30/25 17:35 clavulanic acid (From Allergy Intermediate Vomiting Verified 03/30/25 17:35 Augmentin) chlorpheniramine (From Allergy Mild Hives Verified 03/30/25 17:35 Donatussin) ciprofloxacin (From Cipro) Allergy Mild Hives Verified 03/30/25 17:35 dextromethorphan (From Allergy Mild Hives Verified 03/30/25 17:35 Donatussin) phenylephrine (From Allergy Mild Hives Verified 03/30/25 17:35 Donatussin) cephalexin (From Keflex) AdvReac Intermediate Vomiting Verified 03/30/25 17:35 gluten AdvReac Intermediate Gastrointestinal Verified 03/30/25 17:35 Upset prochlorperazine (From AdvReac Intermediate Palpitation Verified 03/30/25 17:35 Compazine) s sulfamethoxazole (From AdvReac Mild Nausea and Verified 03/30/25 17:35 Bactrim) Vomiting trimethoprim (From Bactrim) AdvReac Mild Nausea and Verified 03/30/25 17:35 Vomiting Review of Systems Review of Systems: All systems reviewed & are unremarkable except as noted in HPI and below Constitutional: Constitutional: Denies chills, Denies fever(s), Denies headache(s), Denies malaise and Denies weakness Eyes: Eyes: Denies change in vision, Denies eye discharge and Denies irritation ENT: Denies otalgia, Denies headache(s), Denies nasal congestion, Denies nasal discharge, Denies sinus pain and Denies sore throat Cardiovascular: Cardiovascular: Denies chest pain, Denies edema, Denies palpitations and Denies dyspnea Respiratory: Respiratory: Denies cough and Denies dyspnea Gastrointestinal: Gastrointestinal: Denies abdominal pain, Denies diarrhea, Denies nausea and Denies vomiting Genitourinary: Genitourinary: Denies hematuria, Denies nocturia, Reports dysuria, Denies flank pain, Denies urinary urgency and Reports other (urine feels hot) Musculoskeletal: Musculoskeletal: Denies back pain and Denies numbness Integumentary/Breasts: Skin/Breast: Denies pruritus and Denies rash Neurologic: Denies headache(s), Denies numbness and Denies weakness Psychiatric: Psychiatric: Reports no additional psychiatric complaints Endocrine: Endocrine: Denies palpitations PMFSH Past Medical History Medical History Suppression of menses Costochondritis Fibromyalgia Psoriasis Acute arthritis Anxiety Low ferritin level Arthralgia BMI 25.0-25.9,adult Eustachian tube dysfunction BMI 26.0-26.9,adult Hx of psoriatic arthritis BMI 24.0-24.9, adult BMI 22.0-22.9, adult Celiac disease Surgical History Surgical History H/O dilation and curettage 06/15/2024 suction d&c H/O endoscopy Hx of cholecystectomy Family History Family History Father Hypertension Diabetes mellitus Obesity Mother Depression Thyroid cancer Thyroid disorder Sibling Thyroid disorder COVID-19 Hypertension Social History Social History Smoking status: Never smoker Second hand tobacco smoke exposure: No Alcohol intake: never Substance use: never Substance use type: does not use Lack of Transportation: No Lack of Food: Never True Current Housing: I Have Housing Concerned About Future Housing: No Difficulty Paying Gas/Electric Bills: No Difficulty Paying for Meds: No Currently Unemployed: No Education: Bachelor's Degree Difficulty w/ Childcare or Family Care: No Living arrangements: with family Occupation/Education: occupation 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 There is no relevant family history pertinent to the presenting complaint. Exam Const: General: cooperative, healthy appearing, comfortable, no acute distress and well nourished Nutritional Appearance: well nourished Orientation/consciousness: patient oriented x3 HENMT: Head: normocephalic and atraumatic Ears: external ears normal Face/Nose/Sinus: Normal external nose present, Normal nares present and normal facial exam Face and sinus: normal facial exam Eyes: General: appearance normal, both eyes and all related structures Pupils: Equal, round and reactive pupils present EOM: EOMs intact bilaterally Neck: Neck: normal visual inspection, full ROM and supple Chest: Chest palpation & inspection: normal inspection of the chest Resp: Effort & Inspection: normal respiratory effort and able to speak in complete sentences Cardio: Rate: regular rate Rhythm: regular rhythm GI: Inspection: normal to inspection GI Palp: No abdominal tenderness and Yes Soft to palpation : General: Yes no CVA tenderness Back/Spine/Pelvis: Back: no CVA tenderness Skin: General skin exam: normal color and no rashes or lesions noted Neuro: General: patient oriented x3 and moves all extremities Cranial nerves: Yes Equal, round and reactive pupils present Extrem: General: normal to inspection and full ROM Psych: Appearance: grossly normal and well kempt Course Course Emergency Course: Patient is aware of diagnosis, understands and agrees to treatment plan. A nticipatory guidance given. Patient agrees to follow-up as directed and is aware of reasons to seek care at the emergency department. Portions of this record may have been created with voice recognition software Level of Care: Express Care Visit Vital Signs Vital signs: Vital Signs Temperature 36.7 C 03/30/25 17:41 Pulse Rate 113 H 03/30/25 17:41 Respiratory Rate 20 03/30/25 17:41 Blood Pressure 152/85 H 03/30/25 17:41 Pulse Oximetry 100 03/30/25 17:41 Oxygen Delivery Room Air 03/30/25 17:41 Temperature 36.7 C 03/30/25 17:41 Pulse Rate 113 H 03/30/25 17:41 Respiratory Rate 20 03/30/25 17:41 Blood Pressure 152/85 H 03/30/25 17:41 Pulse Oximetry 100 03/30/25 17:41 Oxygen Delivery Room Air 03/30/25 17:41 [facility] Narrative Medical decision making narrative: urine shows no sign infection. Will send off for culture per patient request. Instructed to follow-up with OBGYN for Urology if symptoms persist Pt well hydrated appearing, in no respiratory distress, hemodynamically stable. Recommend supportive care. The patient is stable at time of discharge the clinical impression was discussed and the patient was given the opportunity to ask questions, which were addressed as completely as possible given the information available at present. Anticipatory guidance and return to care precautions were discussed and the importance of primary care follow-up was stressed and encouraged. The patient voiced understanding of the plan, indications to return, and the need for follow-up. Exam findings show no acute concerns or changes Patient is appropriate for outpatient treatment and follow-up. Differential Diagnosis Differential Diagnosis: Differential diagnostic considerations for female urogenital? issues include urinary tract infection, bacterial vaginosis, cervicitis, ovarian cyst, vaginitis, STI exposure, ovarian torsion, ectopic , cyst of Bartholin?s gland, cystitis, dysmenorrhea.?? Medical Records I have reviewed the following patient records and this information was taken into consideration when formulating the assessment and plan.: previous clinic visits Lab Data [facility] Lab Attestation statement: I personally reviewed the patient's lab results. Labs: Lab Results 03/30/25 Range/Units 17:53 POC Urine Color Yellow POC Urine Clarity Clear POC Urine pH 7.0 POC Ur Specif [place] 1.010 POC Urine Protein Negative (Negative) POC Ur Glucose (UA) Negative (Negative) POC Urine Ketones Negative (Negative) POC Urine Blood Trace (Negative) POC Urine Nitrite Negative (Negative) POC Urine Bilirubin Negative (Negative) POC Urine Urobilinogen 0.2 POC U Leukocyte Esteras Negative (Negative) Discharge Plan Discharge Clinical Impression: Dysuria Patient Disposition: Home Condition: Stable Instructions: Dysuria (ED) Additional Instructions: We will send a urine culture to the lab. If culture comes back with bacteria we will call you to place you on antibiotics. If it does not and symptoms persist, follow up with OBGYN. Continue with increased water intake. Take Tylenol as needed for pain or fever. Follow-up with primary care provider for urine recheck or see ER visit if condition worsens with high fever, nausea, vomiting, severe back pain Patient Language: Citizen [place] Prescriptions: No Action DHA 200 mg capsule PO ferrous sulfate [FeroSul] 325 mg (65 mg iron) tablet 325 mg PO DAILY Follow-up/Referrals: Jesus Avila MD [Primary Care Provider, [facility]] - 3 Days Time of Disposition: 18:00
--- OUTSIDE RECORDS SUMMARY | 2025-03-30 17:35 | XMS_ITS | Encounter Summary ---
Author Organization [facility] Health Address [address] [place] [address] Care Team Providers Care Pasteurizer Name Role Phone Jesus Avila MD Primary Care Provider [phone] Encounter Details Date Type Department Care Team (Late st Contact Info) Description 02/26/2013 [facility] Outpatient Visit CG DEFAULT [address] [place] [address] Unknown, Provider Social History Tobacco Use Types Packs/Day Years Used Date Smoking Tobacco: Never Assessed Comments No Sex and Gender Information Value Date Recorded Sex Assigned at Female 07/02/2024 1:19 PM GAME TRAPPER Legal Sex Female 9:38 AM GAME TRAPPER Gender Identity Female 07/02/2024 1:19 PM GAME TRAPPER Sexual Orientation Straight 07/02/2024 1: 19 PM GAME TRAPPER documented as of this encounter Plan of Treatment Not on file documented as of this encounter Visit Diagnoses Not on filedocumented in this encounter Care Teams Pasteurizer Relationship Specialty Start Date End Date Jesus Avila MD [address] [place] [address] PCP - General 07/05/22 documented as of this encounter
--- OUTSIDE RECORDS SUMMARY | 2025-03-30 17:37 | XMS_ITS | Clinical Summary ---
Author Organization [facility] Address [address] [place] [address] Care Team Providers Care Chief Risk Officer Name Role Phone Jesus Avila MD Primary Care Provider [phone] Source Comments [facility],non-owned Affiliates and Associated Physician Practices is amultiple site organization consisting of ambulatory clinics and hospital sitesin [place], [place], [place] and [place]. This disclosure is being madepursuant to the Care Everywhere program and may not contain all information available regarding this patient. Last updated 18.[facility] Allergies Active Allergy Reactions Criticality [...] Sex Assigned at Female 07/02/2024 1:19 PM FUSION JUNCTURE GRINDER Legal Sex Female 9:38 AM FUSION JUNCTURE GRINDER Gender Identity Female 07/02/2024 1:19 PM FUSION JUNCTURE GRINDER Sexual Orientation Straight 07/02/2024 1: 19 PM FUSION JUNCTURE GRINDER Last Filed Vital Signs Vital Sign Reading Time Taken Comments Blood Pressure 127/80 07/05/2022 10:56 AM FUSION JUNCTURE GRINDER Pulse 93 07/05/2022 10:56 AM FUSION JUNCTURE GRINDER Temperature 37 C (98.6 F) 07/05/2022 10:56 AM FUSION JUNCTURE GRINDER Respiratory Rate 18 07/05/2022 10:56 AM FUSION JUNCTURE GRINDER Oxygen Saturation 100% 07/05/2022 10:56 AM FUSION JUNCTURE GRINDER Inhaled Oxygen Concentration - - Weight 68.9 kg (152 lb) 07/05/2022 10:56 AM FUSION JUNCTURE GRINDER Height 152.4 cm (5') 07/05/2022 10:56 AM FUSION JUNCTURE GRINDER Body Mass Index 29.69 07/05/2022 10:56 AM FUSION JUNCTURE GRINDER Plan of Treatment Health Maintenance Due Date [...] HORN Subscriber ID:Not on file (Home) Address: [address] [place] [address] Payer ID:Not on file Group ID:Not on file Type:Self Pay Address: [place], [place] [employer] Care Teams Chief Risk Officer Relationship Specialty Start Date End Date Jesus Avila MD [address] [place] [address] (work) PCP - General 07/05/22
[2025-03-30 17:41] VITALS: BP 152/85; PULSE 113; RESP 20; TEMP 36.7; O2SAT 100
[2025-03-30 17:55] LABS: EDUAAPPEAR Clear; EDUABILI Negative (Negative); EDUABLOOD Trace (Negative); EDUACOLOR1 Yellow; EDUAGLUCOSE Negative (Negative); EDUAKETONE Negative (Negative); EDUALEUKO Negative (Negative); EDUANITRATE Negative (Negative); EDUAPH 7.0; EDUAPROTEIN Negative (Negative); EDUASPGRAVITY 1.010; EDUAUROBILI 0.2
== END 2025-03-30 18:41 | disposition home or self-care (01) ==
PROVIDERS: Emergency Provider Nurse Practitioner Family; PCP Family Medicine
DX: O99.891 Other specified diseases and conditions complicating pregnancy (principal); R30.0 Dysuria; Z3A.15 15 weeks gestation of pregnancy; M79.7 Fibromyalgia; O99.612 Diseases of the digestive system complicating pregnancy, second trimester; K90.0 Celiac disease; O99.712 Diseases of the skin and subcutaneous tissue complicating pregnancy, second trimester; L40.50 Arthropathic psoriasis, unspecified
CPT/HCPCS: 81003; 87086; 99213; G0463

== ENCOUNTER 2025-04-15 17:12 | Outpatient (CLI) | payer OTHER, SELFPAY ==
--- OUTSIDE RECORDS SUMMARY | 2025-04-15 17:15 | XMS_ITS | Encounter Summary ---
Author Organization [facility] Health Address [address] [place] [address] Care Team Providers Care Funeral Car Chauffeur Name Role Phone Jesus Avila MD Primary Care Provider Encounter Details Date Type Department Care Team (Late st Contact Info) Description 02/26/2013 [facility] Outpatient Visit CG DEFAULT [address] [place] [address] Unknown, Provider Social History Tobacco Use Types Packs/Day Years Used Date Smoking Tobacco: Never Assessed Comments No Sex and Gender Information Value Date Recorded Sex Assigned at Female 07/02/2024 1:19 PM TRAVELING ACCOUNTANT Legal Sex Female 9:38 AM TRAVELING ACCOUNTANT Gender Identity Female 07/02/2024 1:19 PM TRAVELING ACCOUNTANT Sexual Orientation Straight 07/02/2024 1: 19 PM TRAVELING ACCOUNTANT documented as of this encounter Plan of Treatment Not on file documented as of this encounter Visit Diagnoses Not on filedocumented in this encounter Care Teams Funeral Car Chauffeur Relationship Specialty Start Date End Date Jesus Avila MD [address] [place] [address] PCP - General 07/05/22 documented as of this encounter
--- OUTSIDE RECORDS SUMMARY | 2025-04-15 17:15 | XMS_ITS | Clinical Summary ---
Author Organization [facility] Address [address] [place] [address] Care Team Providers Care Casting Coordinator Name Role Phone Jesus Avila MD Primary Care Provider [phone] Source Comments [facility],non-owned Affiliates and Associated Physician Practices is amultiple site organization consisting of ambulatory clinics and hospital sitesin [place], [place], [place] and [place]. This disclosure is being madepursuant to the Care Everywhere program and may not contain all information available regarding this patient. Last updated 18.[facility] Allergies Active Allergy Reactions Criticality Noted [...] Sex Assigned at Female 07/02/2024 1:19 PM SPOOL SALVAGER Legal Sex Female 9:38 AM SPOOL SALVAGER Gender Identity Female 07/02/2024 1:19 PM SPOOL SALVAGER Sexual Orientation Straight 07/02/2024 1: 19 PM SPOOL SALVAGER Last Filed Vital Signs Vital Sign Reading Time Taken Comments Blood Pressure 127/80 07/05/2022 10:56 AM SPOOL SALVAGER Pulse 93 07/05/2022 10:56 AM SPOOL SALVAGER Temperature 37 C (98.6 F) 07/05/2022 10:56 AM SPOOL SALVAGER Respiratory Rate 18 07/05/2022 10:56 AM SPOOL SALVAGER Oxygen Saturation 100% 07/05/2022 10:56 AM SPOOL SALVAGER Inhaled Oxygen Concentration - - Weight 68.9 kg (152 lb) 07/05/2022 10:56 AM SPOOL SALVAGER Height 152.4 cm (5') 07/05/2022 10:56 AM SPOOL SALVAGER Body Mass Index 29.69 07/05/2022 10:56 AM SPOOL SALVAGER Plan of Treatment Health Maintenance Due Date [...] HORN Subscriber ID:Not on file (Home) Address: [address] [place] [address] Payer ID:Not on file Group ID:Not on file Type:Self Pay Address: [place], [place] [employer] Care Teams Casting Coordinator Relationship Specialty Start Date End Date Jesus Avila MD [address] [place] [address] (work) PCP - General 07/05/22
[2025-04-15 17:31] LABS: Hematocrit 36.8 % (37.0-47.0); Hemoglobin 12.4 g/dL (12.0-15.0); Mean Corpuscular HGB Conc 33.7 g/dl (32-36); Mean Corpuscular Hemoglobin 30.2 pg (26-34); Mean Corpuscular Volume 89.8 fl (80-100); Platelet Count Result 250 k/mm3 (150-375); Red Blood Count 4.10 M/mm3 (4.2-5.4); White Blood Count 12.0 K/mm3 (4.5-10.0)
[2025-04-15 17:42] LABS: Alanine Aminotransferase 25 U/L (6-35); Albumin Level 4.3 g/dL (3.5-5.1); Alkaline Phosphatase 75 U/L (38-126); Anion Gap 10 mmol/L (4-12); Aspartate Amino Transferase 30 U/L (14-36); Bilirubin,Total 0.4 mg/dL (0.2-1.3); Blood Urea Nitrogen 7 mg/dL (7-17); Calcium 10.4 mg/dL (8.4-10.2); Carbon Dioxide 20 mmol/L (22-30); Chloride 106 mmol/L (98-107); Estimated Glomerular Filt Rate > 60; Glucose 92 mg/dL (65-110); Potassium 3.4 mmol/L (3.4-5.0); Sodium 136 mmol/L (137-145); Total Protein 8.3 g/dL (6.3-8.2)
[2025-04-15 18:16] LABS: Thyroid Stimulating Hormone Reflex 3.880 uIU/mL (0.465-4.68)
== END 2025-04-15 17:13 | disposition home or self-care (01) ==
LOC: ANHLAB 17:13
PROVIDERS: PCP Family Medicine; Visit Provider Student in an Organized Health Care Education/Training Program
DX: R42 Dizziness and giddiness (principal)
CPT/HCPCS: 36415; 80053; 84443; 85027

== ENCOUNTER 2025-04-20 09:43 | Emergency (ER) | payer OTHER, SELFPAY ==
[2025-04-20 09:48] VITALS: BP 136/79; PULSE 152; RESP 16; TEMP 37; O2SAT 100
--- NOTE | 2025-04-20 09:58 | ED.URI ---
HPI - URI/Sore Throat General Chief Complaint: Upper Respiratory Infection Stated Complaint: Flu Like Source: patient Mode of arrival: ambulatory Limitations: no limitations History of Present Illness HPI Narrative: This is a 29 y/o female that is 17 weeks that reports waking up with body aches, cough, rhinorrhea and sore throat. patient daughter tested positive for influenza A. patient states she feels very anxious today over having influenza. patient is able to eat and drink well. patient denies any nausea or vomiting. has taken tylenol. MD elicited complaint: cough, sore throat, rhinorrhea and nasal congestion Onset (ago): day(s) (1) Consistency: constant Severity: mild Exacerbating factors: nothing Relieving factors: nothing Context: sick contacts Treatments prior to arrival: acetaminophen Related Data Home Medications ?Medication ?Instructions ?Recorded ?Confirmed ?Last Taken ?Type ferrous sulfate 325 mg (65 mg 325 mg PO DAILY 04/13/24 03/30/25 Unknown History iron) tablet (FeroSul) docosahexaenoic acid 200 mg mg PO 10/19/24 03/22/25 Unknown History capsule ( DHA) Allergies Allergy/AdvReac Type Severity Reaction Status Date / Time chlorpheniramine (From Allergy Mild Hives Verified 04/20/25 09:48 Donatussin) ciprofloxacin (From Cipro) Allergy Mild Hives Verified 04/20/25 09:48 dextromethorphan (From Allergy Mild Hives Verified 04/20/25 09:48 Donatussin) phenylephrine (From Allergy Mild Hives Verified 04/20/25 09:48 Donatussin) amoxicillin (From Augmentin) AdvReac Intermediate Vomiting Verified 04/20/25 09:48 cephalexin (From Keflex) AdvReac Intermediate Vomiting Verified 04/20/25 09:48 clavulanic acid (From AdvReac Intermediate Vomiting Verified 04/20/25 09:48 Augmentin) gluten AdvReac Intermediate Gastrointestinal Verified 04/20/25 09:48 Upset prochlorperazine (From AdvReac Intermediate Palpitation Verified 04/20/25 09:48 Compazine) s sulfamethoxazole (From AdvReac Mild Nausea and Verified 04/20/25 09:48 Bactrim) Vomiting trimethoprim (From Bactrim) AdvReac Mild Nausea and Verified 04/20/25 09:48 Vomiting Review of Systems Review of Systems: All systems reviewed & are unremarkable except as noted in HPI and below PMFSH Past Medical History Medical History Suppression of menses Costochondritis Fibromyalgia Psoriasis Acute arthritis Anxiety Low ferritin level Arthralgia BMI 25.0-25.9,adult Eustachian tube dysfunction BMI 26.0-26.9,adult Hx of psoriatic arthritis BMI 24.0-24.9, adult BMI 22.0-22.9, adult Celiac disease Surgical History Surgical History H/O dilation and curettage 06/15/2024 suction d&c H/O endoscopy Hx of cholecystectomy Family History Family History Father Hypertension Diabetes mellitus Obesity Mother Depression Thyroid cancer Thyroid disorder Sibling Thyroid disorder COVID-19 Hypertension Social History Social History Smoking status: Never smoker Second hand tobacco smoke exposure: No Alcohol intake: never Substance use: never Substance use type: does not use Lack of Transportation: No Lack of Food: Never True Current Housing: I Have Housing Concerned About Future Housing: No Difficulty Paying Gas/Electric Bills: No Difficulty Paying for Meds: No Currently Unemployed: No Education: Bachelor's Degree Difficulty w/ Childcare or Family Care: No Living arrangements: with family Occupation/Education: occupation 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 Gender identity (if verbalized by the patient): Female Spiritual care concerns: No Exam Const: General: ill appearing Nutritional Appearance: well nourished Orientation/consciousness: patient oriented x3 Limitations: no limitations HENMT: Head: normal to inspection Ears: TM abnormal bulging bilateral Face/Nose/Sinus: Nasal discharge present mucoid Face and sinus: sinus tenderness Mouth: Yes Normal oral and palatal mucosa present Teeth and gingiva: dentition normal Throat: posterior oropharynx normal, tonsils normal and postnasal drainage Eyes: Conjunctivae: conjunctivae normal Pupils: Equal, round and reactive pupils present EOM: EOMs intact bilaterally Direct Ophthalmoscopy: no photophobia Neck: Neck: normal visual inspection and no lymphadenopathy Chest: Chest palpation & inspection: normal inspection of the chest Resp: Effort & Inspection: normal respiratory effort Auscultation: clear to auscultation bilaterally Cardio: Rate: regular rate Rhythm: regular rhythm GI: GI Palp: Yes Soft to palpation Auscultation: normal bowel sounds Other: fundal height appropriate. Back/Spine/Pelvis: Back: no CVA tenderness Skin: General skin exam: normal color Rashes: no rashes Wounds: no wounds Neuro: General: patient oriented x3 Cranial nerves: Yes Nystagmus not present Speech: normal speech Gait exam (Neuro): Normal gait present Extrem: General: normal to inspection and no clubbing, cyanosis or edema Psych: Mental Status: mental status grossly normal Affect: normal affect Attitude: cooperative Course Course Emergency Course: This is a 29 y/o female that is 17 weeks that reports waking up with body aches, cough, rhinorrhea and sore throat. patient daughter tested positive for influenza A. patient states she feels very anxious today over having influenza. patient is able to eat and drink well. patient denies any nausea or vomiting. has taken tylenol. vitals noted heart rate in the 150's. with concern of her patient sat back on bed with feet up and given relaxation breathing. patient very tearful and upset about daughter having influenza as well as her symptoms. explained to the patient my concern with her heart rate being in the 150s especially with her being a , stated that if her heart rate remains in the 150s I would be more concerned I want her to be seen in the emergency department. Patient wanted to give time to rest and see if her heart rate would come down with just reducing her anxiety. educated on risks to with elevated heart rate and no ultrasound Capability at urgent care to ensure stable. she verbalized understanding of risks and limitation of urgent care setting. heart rate did lower to 100's with rest. patient was still tearful over influenza positive test. discuss Tamiflu safety with , encourage a collar OBGYN for further discussion and prescription if warranted. discussed treatment of influenza and follow up. answered questions to satisfaction. Educated to increase fluids, rest, symptomatic management: - cough and cold medication per package instructions, - cough drops for sore throat and cough, - vicks vapor rub, - tylenol and motrin for fever and body aches, - soft bland foods, follow-up with primary care chronic 2-3 days for further evaluation and exam, call her OBGYN for further monitoring, and influenza treatment with Tamiflu if warranted. -you are contantagious so avoid any crowds, immunocompromised people, infants or elderly. Return to the emergency department any worrisome sign or symptom. Level of Care: Express Care Visit Vital Signs Vital signs: Vital Signs Temperature 98.6 F 04/20/25 09:48 Pulse Rate 152 H 04/20/25 09:48 Respiratory Rate 16 04/20/25 09:48 Blood Pressure 136/79 04/20/25 09:48 Pulse Oximetry 100 04/20/25 09:48 Oxygen Delivery Room Air 04/20/25 09:48 Temperature 98.6 F 04/20/25 09:48 Pulse Rate 120 H 04/20/25 10:39 Respiratory Rate 16 04/20/25 09:48 Blood Pressure 136/79 04/20/25 09:48 Pulse Oximetry 100 04/20/25 09:48 Oxygen Delivery Room Air 04/20/25 09:48 MDM MDM Narrative Medical decision making narrative: This is a 29 y/o female that is 17 weeks that reports waking up with body aches, cough, rhinorrhea and sore throat. patient daughter tested positive for influenza A. patient states she feels very anxious today over having influenza. patient is able to eat and drink well. patient denies any nausea or vomiting. has taken tylenol. vitals noted heart rate in the 150's. with concern of her patient sat back on bed with feet up and given relaxation breathing. patient very tearful and upset about daughter having influenza as well as her symptoms. explained to the patient my concern with her heart rate being in the 150s especially with her being a , stated that if her heart rate remains in the 150s I would be more concerned I want her to be seen in the emergency department. Patient wanted to give time to rest and see if her heart rate would come down with just reducing her anxiety. educated on risks to with elevated heart rate and no ultrasound Capability at urgent care to ensure stable. she verbalized understanding of risks and limitation of urgent care setting. heart rate did lower to 100's with rest. patient was still tearful over influenza positive test. discuss Tamiflu safety with , encourage a collar OBGYN for further discussion and prescription if warranted. discussed treatment of influenza and follow up. answered questions to satisfaction. Educated to increase fluids, rest, symptomatic management: - cough and cold medication per package instructions, - cough drops for sore throat and cough, - vicks vapor rub, - tylenol and motrin for fever and body aches, - soft bland foods, follow-up with primary care chronic 2-3 days for further evaluation and exam, call her OBGYN for further monitoring, and influenza treatment with Tamiflu if warranted. -you are contantagious so avoid any crowds, immunocompromised people, infants or elderly. Return to the emergency department any worrisome sign or symptom. Differential Diagnosis Differential Diagnosis: influenza, viral syndrome, covid Medical Records I have reviewed the following patient records and this information was taken into consideration when formulating the assessment and plan.: previous clinic visits Lab Data MDM Lab Attestation statement: I personally reviewed the patient's lab results. Lab results narrative: influenza A positive influenza B negative covid negative Labs: Lab Results 04/20/25 Range/Units 10:08 POC Influenza A Ag Positive (Negative) POC Influenza B Ag Negative (Negative) POC SARS CoV-2 Ag Negative (Negative) Discharge Plan Discharge Clinical Impression: Influenza Patient Disposition: Home Condition: Stable Instructions: Influenza (ED) Additional Instructions: Increase fluids, rest, symptomatic management: - cough and cold medication per package instructions, - cough drops for sore throat and cough, - vicks vapor rub, - tylenol and motrin for fever and body aches, - soft bland foods, follow-up with primary care chronic 2-3 days for further evaluation and exam Call OBGYN for follow up and tamiflu if warranted. zofran for nausea and vomiting only. -you are contantagious so avoid any crowds, immunocompromised people, infants or elderly. Patient Language: Bulgarian Prescriptions: New ondansetron 4 mg tablet,disintegrating 4 mg PO Q6H PRN (Reason: nausea and vomiting) Qty: 12 0RF No Action DHA 200 mg capsule PO ferrous sulfate [FeroSul] 325 mg (65 mg iron) tablet 325 mg PO DAILY Follow-up/Referrals: Jesus Avila MD [Primary Care Provider, [facility]] Time of Disposition: 10:12
--- OUTSIDE RECORDS SUMMARY | 2025-04-20 10:05 | XMS_ITS | Clinical Summary ---
Author Organization [facility] Address [address] [place] [address] Care Team Providers Care Transaction Coordinator Name Role Phone Jesus Avila MD Primary Care Provider [phone] Source Comments [facility],non-owned Affiliates and Associated Physician Practices is amultiple site organization consisting of ambulatory clinics and hospital sitesin [place], [place], [place] and [place]. This disclosure is being madepursuant to the Care Everywhere program and may not contain all information available regarding this patient. Last updated 18.[facility] Allergies Active Allergy Reactions Criticality Noted [...] Sex Assigned at Female 07/02/2024 1:19 PM QUENCHER OPERATOR Legal Sex Female 9:38 AM QUENCHER OPERATOR Gender Identity Female 07/02/2024 1:19 PM QUENCHER OPERATOR Sexual Orientation Straight 07/02/2024 1: 19 PM QUENCHER OPERATOR Last Filed Vital Signs Vital Sign Reading Time Taken Comments Blood Pressure 127/80 07/05/2022 10:56 AM QUENCHER OPERATOR Pulse 93 07/05/2022 10:56 AM QUENCHER OPERATOR Temperature 37 C (98.6 F) 07/05/2022 10:56 AM QUENCHER OPERATOR Respiratory Rate 18 07/05/2022 10:56 AM QUENCHER OPERATOR Oxygen Saturation 100% 07/05/2022 10:56 AM QUENCHER OPERATOR Inhaled Oxygen Concentration - - Weight 68.9 kg (152 lb) 07/05/2022 10:56 AM QUENCHER OPERATOR Height 152.4 cm (5') 07/05/2022 10:56 AM QUENCHER OPERATOR Body Mass Index 29.69 07/05/2022 10:56 AM QUENCHER OPERATOR Plan of Treatment Health Maintenance Due [...] HORN Subscriber ID:Not on file (Home) Address: [address] [place] [address] Payer ID:Not on file Group ID:Not on file Type:Self Pay Address: [place], [place] [employer] Care Teams Transaction Coordinator Relationship Specialty Start Date End Date Jesus Avila MD [address] [place] [address] (work) PCP - General 07/05/22
--- OUTSIDE RECORDS SUMMARY | 2025-04-20 10:05 | XMS_ITS | Encounter Summary ---
Author Organization [facility] Address [address] [address] Care Team Providers Care Bench Grinder Name Role Phone Jesus Avila MD Primary Care Provider [phone] Encounter Details Date Type Department Care Team (Late st Contact Info) Description 02/26/2013 [facility] Outpatient Visit CG DEFAULT [address] [place] [address] Unknown, Provider Social History Tobacco Use Types Packs/Day Years Used Date Smoking Tobacco: Never Assessed Comments No Sex and Gender Information Value Date Recorded Sex Assigned at Female 07/02/2024 1:19 PM OPTICAL INSTRUMENT INSPECTOR Legal Sex Female 9:38 AM OPTICAL INSTRUMENT INSPECTOR Gender Identity Female 07/02/2024 1:19 PM OPTICAL INSTRUMENT INSPECTOR Sexual Orientation Straight 07/02/2024 1: 19 PM OPTICAL INSTRUMENT INSPECTOR documented as of this encounter Plan of Treatment Not on file documented as of this encounter Visit Diagnoses Not on filedocumented in this encounter Care Teams Bench Grinder Relationship Specialty Start Date End Date Jesus Avila MD [address] [place] [address] PCP - General 07/05/22 documented as of this encounter
[2025-04-20 10:10] LABS: EDCOVIDSCREEN Negative (Negative); EDINFLUASCREEN Positive (Negative); EDINFLUBSCREEN Negative (Negative)
[2025-04-20 10:24] VITALS: PULSE 149
[2025-04-20 10:39] VITALS: PULSE 120
== END 2025-04-20 10:45 | disposition home or self-care (01) ==
PROVIDERS: Emergency Provider Nurse Practitioner Family; PCP Family Medicine
DX: O99.512 Diseases of the respiratory system complicating pregnancy, second trimester (principal); J10.1 Influenza due to other identified influenza virus with other respiratory manifestations; Z3A.17 17 weeks gestation of pregnancy; Z20.822 Contact with and (suspected) exposure to COVID-19; O99.891 Other specified diseases and conditions complicating pregnancy; M79.7 Fibromyalgia; O99.712 Diseases of the skin and subcutaneous tissue complicating pregnancy, second trimester; L40.50 Arthropathic psoriasis, unspecified; O99.612 Diseases of the digestive system complicating pregnancy, second trimester; K90.0 Celiac disease
CPT/HCPCS: 87426; 87804; 99213; G0463

== ENCOUNTER 2025-04-20 18:37 | Emergency (ER) | payer OTHER, SELFPAY ==
[2025-04-20] VITALS (8 sets, daily range): BP systolic 104–131; BP diastolic 56–79; PULSE 128–157; RESP 14–22; TEMP 37.1–37.4; O2SAT 95–99
--- OUTSIDE RECORDS SUMMARY | 2025-04-20 18:39 | XMS_ITS | Encounter Summary ---
Author Organization [facility] Address [address] [place] [address] Care Team Providers Care Orchid Hand Name Role Phone Jesus Avila MD Primary Care Provider Encounter Details Date Type Department Care Team (Late st Contact Info) Description 02/26/2013 [facility] Outpatient Visit CG DEFAULT [address] [place] [address] Unknown, Provider Social History Tobacco Use Types Packs/Day Years Used Date Smoking Tobacco: Never Assessed Comments No Sex and Gender Information Value Date Recorded Sex Assigned at Female 07/02/2024 1:19 PM PEDIATRIC NEUROPSYCHOLOGIST Legal Sex Female 9:38 AM PEDIATRIC NEUROPSYCHOLOGIST Gender Identity Female 07/02/2024 1:19 PM PEDIATRIC NEUROPSYCHOLOGIST Sexual Orientation Straight 07/02/2024 1: 19 PM PEDIATRIC NEUROPSYCHOLOGIST documented as of this encounter Plan of Treatment Not on file documented as of this encounter Visit Diagnoses Not on filedocumented in this encounter Care Teams Orchid Hand Relationship Specialty Start Date End Date Jesus Avila MD [address] [place] [address] PCP - General 07/05/22 documented as of this encounter
--- OUTSIDE RECORDS SUMMARY | 2025-04-20 18:39 | XMS_ITS | Clinical Summary ---
Author Organization [facility] Address [address] [place] [address] Care Team Providers Care Trade Recruiter Name Role Phone Jesus Avila MD Primary Care Provider [phone] Source Comments [facility],non-owned Affiliates and Associated Physician Practices is amultiple site organization consisting of ambulatory clinics and hospital sitesin [place] and [place]. This disclosure is being madepursuant to the Care Everywhere program and may not contain all information available regarding this patient. Last updated 18.[facility] Allergies Active Allergy Reactions Criticality Noted [...] Sex Assigned at Female 07/02/2024 1:19 PM COMPONENT ASSEMBLER SUPERVISOR Legal Sex Female 9:38 AM COMPONENT ASSEMBLER SUPERVISOR Gender Identity Female 07/02/2024 1:19 PM COMPONENT ASSEMBLER SUPERVISOR Sexual Orientation Straight 07/02/2024 1: 19 PM COMPONENT ASSEMBLER SUPERVISOR Last Filed Vital Signs Vital Sign Reading Time Taken Comments Blood Pressure 127/80 07/05/2022 10:56 AM COMPONENT ASSEMBLER SUPERVISOR Pulse 93 07/05/2022 10:56 AM COMPONENT ASSEMBLER SUPERVISOR Temperature 37 C (98.6 F) 07/05/2022 10:56 AM COMPONENT ASSEMBLER SUPERVISOR Respiratory Rate 18 07/05/2022 10:56 AM COMPONENT ASSEMBLER SUPERVISOR Oxygen Saturation 100% 07/05/2022 10:56 AM COMPONENT ASSEMBLER SUPERVISOR Inhaled Oxygen Concentration - - Weight 68.9 kg (152 lb) 07/05/2022 10:56 AM COMPONENT ASSEMBLER SUPERVISOR Height 152.4 cm (5') 07/05/2022 10:56 AM COMPONENT ASSEMBLER SUPERVISOR Body Mass Index 29.69 07/05/2022 10:56 AM COMPONENT ASSEMBLER SUPERVISOR Plan of Treatment Health Maintenance Due Date [...] HORN Subscriber ID:Not on file (Home) Address: [address] [place] [address] Payer ID:Not on file Group ID:Not on file Type:Self Pay Address: [place], [place] [employer] Care Teams Trade Recruiter Relationship Specialty Start Date End Date Jesus Avila MD [address] [place] [address] (work) PCP - General 07/05/22
--- NOTE | 2025-04-20 18:46 | ECG_ITS ---
Test Date: 2025-04-20 18:56:45 Measurements Intervals [place] Rate: 152 P: 61 WI: 139 QRS: 38 QRSD: 80 T: 38 QT: 274 QTc: 436 Interpretive Statements SINUS TACHYCARDIA CONSIDER INFERIOR INFARCT, AGE INDETERMINATE BASELINE ARTIFACT- II, III, V3 ABNORMAL ECG No previous ECG available for comparison Electronically Signed On 04-20-2025 20:57:51 ANIMAL RIDE ATTENDANT by Matthew Dumont D.O.
[2025-04-20] MEDS: LACTATED RINGERS 1,000 ML 999 ML IV CONT (19:06)
--- NOTE | 2025-04-20 19:45 | ED.URI ---
HPI - URI/Sore Throat General Chief Complaint: Upper Respiratory Infection Stated Complaint: FLU A+ as of this AM, 17 weeks Time Seen by Provider: 04/20/25 19:29 Source: patient Mode of arrival: ambulatory Limitations: no limitations History of Present Illness HPI Narrative: 29 years old white female came to the ED with sore throat, headache, postnasal discharge, body aches, nausea and vomiting started last night, was seen at urgent care today, started at Tamiflu few hours later started vomiting. Patient is 17 weeks . She denies any vaginal bleeding or discharge or urinary symptoms. Related Data Home Medications ?Medication ?Instructions ?Recorded ?Confirmed ?Last Taken ?Type ferrous sulfate 325 mg (65 mg 325 mg PO DAILY 04/13/24 03/30/25 Unknown History iron) tablet (FeroSul) docosahexaenoic acid 200 mg mg PO 10/19/24 03/22/25 Unknown History capsule ( DHA) Allergies Allergy/AdvReac Type Severity Reaction Status Date / Time chlorpheniramine (From Allergy Mild Hives Verified 04/20/25 18:44 Donatussin) ciprofloxacin (From Cipro) Allergy Mild Hives Verified 04/20/25 18:44 dextromethorphan (From Allergy Mild Hives Verified 04/20/25 18:44 Donatussin) phenylephrine (From Allergy Mild Hives Verified 04/20/25 18:44 Donatussin) amoxicillin (From Augmentin) AdvReac Intermediate Vomiting Verified 04/20/25 18:44 cephalexin (From Keflex) AdvReac Intermediate Vomiting Verified 04/20/25 18:44 clavulanic acid (From AdvReac Intermediate Vomiting Verified 04/20/25 18:44 Augmentin) gluten AdvReac Intermediate Gastrointestinal Verified 04/20/25 18:44 Upset prochlorperazine (From AdvReac Intermediate Palpitation Verified 04/20/25 18:44 Compazine) s sulfamethoxazole (From AdvReac Mild Nausea and Verified 04/20/25 18:44 Bactrim) Vomiting trimethoprim (From Bactrim) AdvReac Mild Nausea and Verified 04/20/25 18:44 Vomiting Review of Systems Review of Systems: All systems reviewed & are unremarkable except as noted in HPI and below PMFSH Past Medical History Medical History Suppression of menses Costochondritis Fibromyalgia Psoriasis Acute arthritis Anxiety Low ferritin level Arthralgia BMI 25.0-25.9,adult Eustachian tube dysfunction BMI 26.0-26.9,adult Hx of psoriatic arthritis BMI 24.0-24.9, adult BMI 22.0-22.9, adult Celiac disease Surgical History Surgical History H/O dilation and curettage 06/15/2024 suction d&c H/O endoscopy Hx of cholecystectomy Family History Family History Father Hypertension Diabetes mellitus Obesity Mother Depression Thyroid cancer Thyroid disorder Sibling Thyroid disorder COVID-19 Hypertension Social History Social History Smoking status: Never smoker Second hand tobacco smoke exposure: No Alcohol intake: never Substance use: never Substance use type: does not use Lack of Transportation: No Lack of Food: Never True Current Housing: I Have Housing Concerned About Future Housing: No Difficulty Paying Gas/Electric Bills: No Difficulty Paying for Meds: No Currently Unemployed: No Education: Bachelor's Degree Difficulty w/ Childcare or Family Care: No Living arrangements: with family Occupation/Education: occupation 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 Musculoskeletal: Normal range of motion, nontender back Neurologic: Alert and oriented ?3, [employer] is normal as tested, no gross motor deficit Course Vital Signs Vital signs: Vital Signs Temperature 37.4 C 04/20/25 18:42 Pulse Rate 157 H 04/20/25 18:42 Respiratory Rate 20 04/20/25 18:42 Blood Pressure 131/79 04/20/25 18:42 Pulse Oximetry 99 04/20/25 18:42 Oxygen Delivery Room Air 04/20/25 18:42 Temperature 37.4 C 04/20/25 18:42 Pulse Rate 134 H 04/20/25 20:30 Respiratory Rate 16 04/20/25 20:30 Blood Pressure 115/65 04/20/25 20:30 Pulse Oximetry 96 04/20/25 20:30 Oxygen Delivery Room Air 04/20/25 19:04 MDM MDM Narrative Medical decision making narrative: Patient had been diagnosed of influenza a early today, came to the ED because of vomiting, concern about her Vital signs showing heart rate 157 otherwise within normal limit Physical examination, tachycardia Differential diagnosis influenza A, electrolyte imbalance, dehydration Blood workup today includes CBC, CMP showed WBC 10.7, patient is , sodium 135, potassium 3.2, otherwise within normal limit Urinalysis showed no evidence of infection Differential Diagnosis Differential Diagnosis: As above Lab Data 04/20/25 20:40 04/20/25 20:40 Labs: Lab Results 04/20/25 04/20/25 Range/Units 20:40 20:41 WBC 10.7 H (4.5-10.0) K/mm3 RBC 4.04 L (4.2-5.4) M/mm3 Hgb 12.1 (12.0-15.0) g/dL Hct 35.7 L (37.0-47.0) % MCV 88.4 (80-100) fl MCH 30.0 (26-34) pg MCHC 33.9 (32-36) g/dl RDW 13.2 (11.5-14.5) % Plt Count 224 (150-375) k/mm3 MPV 11.8 H (7.4-10.4) fl Immature Gran % (Auto) 0.8 H (0-0.5) % Neut % (Auto) 85.6 H (45.5-73.1) % Lymph % (Auto) 3.2 L (18.3-44.2) % [place] % (Auto) 10.0 H (2.6-8.5) % Eos % (Auto) 0.2 (0-4.4) % Baso % (Auto) 0.2 (0.2-1.2) % Lymph # (Auto) 0.34 L (0.9-3.2) K/mm3 [place] # (Auto) 1.1 H (0.1-0.6) K/mm3 Eos # (Auto) 0.0 (0-0.3) K/mm3 Baso # (Auto) 0.0 (0.0-0.1) K/mm3 Abs Immat Gran (auto) 0.09 H (0.00-0.031) K/mm3 Absolute Neuts (auto) 9.1 H (1.3-6.7) K/mm3 Absolute Nucleated RBC 0.000 (0.0-0.012) K/mm3 Band Neutrophils % Not Reportable Nucleated RBC % 0.0 (0.0-0.2) % Platelet Estimate Adequate (Adequate) Ovalocytes Occasional Leticia Cells 1+ Schistocytes None seen Sodium 135 L (137-145) mmol/L Potassium 3.2 L (3.4-5.0) mmol/L Chloride 107 (98-107) mmol/L Carbon Dioxide 18 L (22-30) mmol/L Anion Gap 10 (4-12) mmol/L BUN 7 (7-17) mg/dL Creatinine 0.54 L (0.7-1.0) mg/dL Estim Creat Clear Calc 112 ml/min Estimated GFR > 60 (59 - ) Glucose 94 (65-110) mg/dL Calcium 9.7 (8.4-10.2) mg/dL Total Bilirubin 0.6 (0.2-1.3) mg/dL AST 45 H (14-36) U/L ALT 48 H (6-35) U/L Alkaline Phosphatase 83 (38-126) U/L Total Protein 7.8 (6.3-8.2) g/dL Albumin 4.2 (3.5-5.1) g/dL Urine Color Yellow (Yellow) Urine Appearance Clear (Clear) Urine pH 7.5 (5.0-9.0) Ur Specific [place] 1.011 (1.001-1.035) Urine Protein Negative (Negative) mg/dL Urine Glucose (UA) Negative (Negative) mg/dL Urine Ketones 2+ H (Negative) mg/dL Ur Blood (Man) Trace (Negative) Urine Nitrate Negative (Negative) Urine Bilirubin Negative (Negative) Urine Urobilinogen 1.0 (<2.0) mg/dL Leukocyte Esterase Rfl Trace H (Negative) DIAZ/UL Urine RBC 3-5 H (0-2) /hpf Urine WBC 0-5 (0-3) /hpf Ur Squamous Epith Cells Few (Few) /hpf Urine Bacteria None seen /hpf Urine Casts 0-2 Discharge Plan Discharge Clinical Impression: Influenza A Patient Disposition: Home Condition: Stable Instructions: Influenza (ED) Additional Instructions: Return if symptoms are worsening , call your family physician for appointment, take Tylenol as as needed for aches and pain, continue home medications. Patient Language: Bulgarian Prescriptions: No Action ondansetron 4 mg tablet,disintegrating 4 mg PO Q6H PRN (Reason: nausea and vomiting) Qty: 12 0RF DHA 200 mg capsule PO ferrous sulfate [FeroSul] 325 mg (65 mg iron) tablet 325 mg PO DAILY oseltamivir [Tamiflu] 75 mg capsule 75 mg PO BID 5 Days Qty: 10 0RF Follow-up/Referrals: Jesus Avila MD [Primary Care Provider, Family Practice]
[2025-04-20] MEDS: SODIUM CHLORIDE 0.9% IV 1,000 ML 999 ML IV CONT (20:34)
[2025-04-20] MEDS: ONDANSETRON INJ 4 MG/2 ML VIAL 8 MG IV PUSH (20:35)
[2025-04-20] MEDS: ACETAMINOPHEN 325 MG TABLET 650 MG PO (20:35)
[2025-04-20 21:01] LABS: Add Urine Microscopic? YES; Appearance Urine Clear (Clear); Glucose Urine UA Negative (Negative); Leukocyte Esterase Ur Trace LEU/UL (Negative); Nitrate Urine Negative (Negative); Non Pathogenic Casts 0-2; Specific Grav Ur 1.011 (1.001-1.035)
[2025-04-20 21:02] LABS: Alanine Aminotransferase 48 U/L (6-35); Albumin Level 4.2 g/dL (3.5-5.1); Alkaline Phosphatase 83 U/L (38-126); Anion Gap 10 mmol/L (4-12); Aspartate Amino Transferase 45 U/L (14-36); Bilirubin,Total 0.6 mg/dL (0.2-1.3); Blood Urea Nitrogen 7 mg/dL (7-17); Calcium 9.7 mg/dL (8.4-10.2); Carbon Dioxide 18 mmol/L (22-30); Chloride 107 mmol/L (98-107); Estimated CRCL calculation 112 ml/min; Estimated Glomerular Filt Rate > 60; Glucose 94 mg/dL (65-110); Potassium 3.2 mmol/L (3.4-5.0); Sodium 135 mmol/L (137-145); Total Protein 7.8 g/dL (6.3-8.2)
[2025-04-20 21:08] LABS: Hematocrit 35.7 % (37.0-47.0); Hemoglobin 12.1 g/dL (12.0-15.0); Immature Granulocyte Percent A 0.8 % (0-0.5); Lymphocytes Absolute Auto 0.34 K/mm3 (0.9-3.2); Mean Corpuscular HGB Conc 33.9 g/dl (32-36); Mean Corpuscular Hemoglobin 30.0 pg (26-34); Mean Corpuscular Volume 88.4 fl (80-100); Nucleated Red Blood Cells Absolute Auto 0.000 K/mm3 (0.0-0.012); Nucleated Red Blood Cells Perc 0.0 % (0.0-0.2); Platelet Count Result 224 k/mm3 (150-375); Red Blood Count 4.04 M/mm3 (4.2-5.4); White Blood Count 10.7 K/mm3 (4.5-10.0)
[2025-04-20 21:29] LABS: Burr Cells 1+; Ovalocytes Occasional; Schistocytes None Seen
== END 2025-04-20 22:26 | disposition home or self-care (01) ==
PROVIDERS: Emergency Provider Emergency Medicine; PCP Family Medicine
DX: O99.512 Diseases of the respiratory system complicating pregnancy, second trimester (principal); J10.1 Influenza due to other identified influenza virus with other respiratory manifestations; Z20.822 Contact with and (suspected) exposure to COVID-19; O99.612 Diseases of the digestive system complicating pregnancy, second trimester; K90.0 Celiac disease; O99.712 Diseases of the skin and subcutaneous tissue complicating pregnancy, second trimester; L40.50 Arthropathic psoriasis, unspecified; O99.891 Other specified diseases and conditions complicating pregnancy; M79.7 Fibromyalgia; Z90.49 Acquired absence of other specified parts of digestive tract; Z3A.17 17 weeks gestation of pregnancy; R00.0 Tachycardia, unspecified; R94.31 Abnormal electrocardiogram [ECG] [EKG]
CPT/HCPCS: 36415; 80053; 81001; 85025; 93005; 96361; 96374; 99284; A9270; J2405; J7030; J7120